=== PATIENT | male | born 1955 | race Caucasian/White ===

== ENCOUNTER → 2023-10-25 06:56 | Outpatient (REF) | payer MEDICARE, SELFPAY | LOC: MRI 06:56 | PROVIDERS: ATTENDING PHYSICIAN Physician Assistant Medical; FAMILY PHYSICIAN Internal Medicine | DX: R26.89 Other abnormalities of gait and mobility (principal); M47.12 Other spondylosis with myelopathy, cervical region | CPT/HCPCS: 72141; 72148 ==

== ENCOUNTER 2023-11-04 12:34 | Inpatient (IN) | payer MEDICARE, SELFPAY ==
[2023-11-04] VITALS (9 sets, daily range): BP systolic 91–124; BP diastolic 52–77; BMI 27.6; BMI 27.2
--- NOTE | 2023-11-04 08:57 | ED.GENMED ---
History of Present Illness
General
Chief Complaint: Abdominal Pain
Source: patient
Exam Limitations: none
Time Seen by Provider: 11/04/23 08:47
Travel History
Have you had any contact with someone who has COVID-19?: No
Do you have any symptoms of coronavirus? Fever > 100 degrees, chills, cough, shortness of breath, sore throat, loss of taste or smell, muscle aches, or headache?: No
History of Present Illness
History of Present Illness:
67-year-old male 3 weeks of upper abdominal burning and dark stool. Contacted his inserter operator who recommended ER evaluation. No new medication. Some increased sleepiness and tiredness. No chest pain or shortness of breath. Is having dark stool
on a daily basis for the last 3 weeks
Past History
Past History
ED Past Medical History: CAD, HTN and Hypercholesterolemia
ED Past Surgical History: Cardiac, Orthopedic and Other (Hernia repair)
Social History
Tobacco: Smoker
Alcohol: Occasional
Drug: None
Review of Systems
Review of Systems
All Other Systems: Not applicable
Constitutional: Denies fever
Respiratory: Denies trouble breathing
Cardiac: Denies chest pain or syncope
Phy Exam
Physical Exam
Physical Exam:
GENERAL: Alert and oriented in no apparent distress
EYE: Orbits normal.
NECK: Supple
CARDIAC: Regular rate and rhythm without any obvious murmurs. Sternotomy scar
LUNGS: Clear breath sounds,normal
ABDOMEN: Soft, bowel sounds present. Minimal epigastric tenderness. No rebound or guarding no mass or hernia. Stool mildly dark and test obviously positive
NEUROLOGICAL: Alert and oriented , grossly non-focal
SKIN: Warm and dry, no rash or lesion, no discoloration, skin intact.
MUSCULOSKELETAL: No edema,no deformity.Good color
PSYCH: Normal and appropriate interaction.
Course
Orders/Labs/Results
Orders:
Orders
11/04/23 08:55
EKG [Electrocardiogram (*1)] Urgent
Reason for Study: Fatigue / Weakness
EKG- Treatment ONCE
11/04/23 08:56
Cardiac Monitoring- Treatment ONCE
IV Insert/Care/Rem.- Treatment PRN
IV Insert/Care/Rem.- Treatment PRN
Pantoprazole [Protonix IV] 40 mg IV NOW STA
Pulse Ox/cont/shift [RESP] Stat
Quantity: 1
11/04/23 09:00
Type+Screen Urgent
Complete Blood Count/With Diff Urgent
Comprehensive Metabolic Panel Urgent
Lipase Urgent
PTT Urgent
Prothrombin Time Urgent
11/04/23 12:05
Admit/Transfer Patient As Directed
Co-Sign Provider:
Level of Care: Inpatient admission
Assign to:: Telemetry
Physician / Group: Stacie Menendez [facility]
Diagnosis: GI bleed, anemia
Reason for Telemetry: Chest Pain syndromes
Date to Stop Telemetry: 11/06/23
Time to Stop Telemetry: 11:00
Reason for Hospitalization: GI bleed, anemia
Expected length of stay greater than two midnights?: Yes
ELOS- Estimated Length of Stay in days: 4
I certify the patient meets the requirements for IP care: Yes
11/04/23 12:06
CARDIOLOGY CONSULT Routine
Consulting Provider: Dewayne Cortez
Was physician already notified: Yes
GASTROINTESTINAL CONSULT Routine
Consulting Provider: Meredith Cantu
Was physician already notified: Yes
11/04/23 12:16
CT Chest/abd/pel W Iv Cont Routine
Comment:
Reason For Exam: wt loss no oral contrast
11/04/23 14:36
Sequential Compression Device [Pneumatic Compression Sleeves] As Directed
Type: Knee high
DX Deep Vein Thrombosis Video Routine
11/06/23 11:00
DC Protocol for Telemetry ONCE
Abnormal Lab Results
11/04/23
09:00
RBC 3.57 L 10^6/uL
(4.70-6.10)
Hgb 12.7 L g/dL
(13.0-18.0)
Hct 35.9 L %
(39.0-52.0)
MCV 100.6 H fL
(80.0-94.0)
MCH 35.6 H pg
(27.0-31.0)
MPV 12.0 H fL
(7.4-10.4)
Absolute Monos (auto) 0.7 H 10^3/uL
(0.1-0.6)
Glucose 116 H mg/dl
(70-99)
AST 76 H U/L
(17-59)
Alkaline Phosphatase 142 H U/L
(38-126)
Albumin 3.1 L g/dl
(3.5-5.0)
Lipase 344 H U/L
(23-300)
11/04/23 09:00
11/04/23 09:00
Vital Signs
Initial and Last Documented VS:
Initial Vital Signs
Temp Pulse Resp BP Pulse Ox
98.1 F 62 18 120/59 99
11/04/23 08:41 11/04/23 08:41 11/04/23 08:41 11/04/23 08:41 11/04/23 08:41
Last Documented Vital Signs
Temp Pulse Resp BP Pulse Ox
98.1 F 66 23 111/62 100
11/04/23 08:41 11/04/23 14:04 11/04/23 14:04 11/04/23 14:04 11/04/23 12:30
*Critical Care Note
Total Time (30-74mins, 75-104mins- exclusive of procedures): Not Applicable
Update Note
Update Note:
Slight drop in hemoglobin. Medically stable. Admission for further care
ED Attending Note
-
Portions of this chart may have been created with voice recognition software.� Occasional wrong word or��sound alike� substitutions may have occurred due to the inherent limitations of voice recognition software.
Discharge Plan
Departure
Patient Disposition: Admit
Date of Disposition: 11/04/23
Time of Disposition: 09:48
Presentation/result/management discussed w/ accepting MD/DO: Hospitalist
Discharge Problem:
Upper GI bleed
Interventions
Interventions:
*Risk Screen - Suicide Last Done: 11/04/23 08:44
*General Assessment Last Done: 11/04/23 08:44
*Neglect/Abuse Screening Last Done: 11/04/23 08:44
*ED COVID-19 Vaccine History Last Done: 11/04/23 08:58
*Nursing Disposition Last Done: 11/04/23 14:33
PV-Xxqkwi-Xvgvjreegk Assessment Last Done: 11/04/23 08:58
Discharge Date and Time
Discharge Date/Time: 11/04/23 14:25
[2023-11-04] MEDS: PROTONIX IV 40 MG IV (09:05)
[2023-11-04 09:17] LABS: % Basophils 1.1 % (0-2); % Eosinophils 2.4 % (0-6); % Immature Granulocytes 0.4 % (0-0.5); % Lymphocytes 24.3 % (20.5-51.1); % Neutrophils 63.8 % (42.2-75.2); Absolute Basophils 0.1 10^3/uL (0-0.2); Absolute Eosinophils 0.2 10^3/uL (0-0.7); Absolute Monocytes 0.7 10^3/uL (0.1-0.6); Absolute Neutrophils 5.2 10^3/uL (1.4-6.5); Hematocrit 35.9 % (39.0-52.0); Hemoglobin 12.7 g/dL (13.0-18.0); Mean Corp Hgb Conc. 35.4 g/dL (33.0-37.0); Mean Corpuscular Hgb 35.6 pg (27.0-31.0); Mean Corpuscular Volume 100.6 fL (80.0-94.0); Nucleated Red Blood Cells % 0 % (-); Platelet Count 149 10^3/uL (130-400); Red Blood Cell Count 3.57 10^6/uL (4.70-6.10); Red Cell Dist. Width 12.7 % (11.5-14.5); White Blood Cell Count 8.1 10^3/uL (4.8-10.8)
[2023-11-04 09:29] LABS: INR 1.11; PT 14.4 Sec (11.4-14.6)
[2023-11-04 09:30] LABS: APTT 33.4 Sec (23.4-35.0)
[2023-11-04 09:32] LABS: ALT (SGPT) 30 U/L (0-50); AST (SGOT) 76 U/L (17-59); Albumin 3.1 g/dl (3.5-5.0); Alkaline Phosphatase 142 U/L (38-126); Blood Urea Nitrogen 17 mg/dl (9-20); Calcium 9.1 mg/dl (8.4-10.2); Carbon Dioxide 24 mmol/L (22-30); Chloride 103 mmol/L (98-107); Estimated Creatinine Clearance 73 ml/min; Glucose 116 mg/dl (70-99); Potassium 3.8 mmol/L (3.5-5.1); Sodium 135 mmol/L (135-145); Total Bilirubin 1.3 mg/dl (0.2-1.3); Total Protein 6.5 g/dl (6.3-8.2); eGFR > 60.00
[2023-11-04 09:57] LABS: Lipase 344 U/L (23-300)
--- NOTE | 2023-11-04 11:24 | CON.GI ---
Addendum entered and electronically signed by Roger Cristobal MD 11/04/23 15:42:
I saw and examined the patient.
The PA's note was reviewed and I agree with the note.
Comment:
The patient is a 67 year old male with h/o CAD s/p CABG at age 37 and multiple cardiac stents (last 2006) on DAPT, angina, HTN, hyperlipidemia who p/w melena. He reports having melenic stool for past few weeks. Also reports about 20 lb of
unintentional weight loss. EDOUARD from ER reportedly showed dark but non-melenic stool heme +ve.� Remote h/o EGD (30 years ago with GERD), no prior colonoscopy.
Impression / Rec:
1. Reported melena - EDOUARD showed dark but non-melenic stool, heme +ve. No prior colonoscopy, remote EGD (30 years prior). Denies NSAID use or pepto bismol. Hgb is 12.7. He does report abdominal pain. Doubt pt is having active GI hemorrhage.
Last Plavix yesterday. Given pt's reported 20 lbs of unintentional weight loss, would prefer to proceed with endo eval as inpt. Plan for diagnostic EGD/colonoscopy tomorrow (will need to hold Plavix for 5 days if any therapy is needed).
Original Note:
Consultation
-
Date/Time Consultation Requested: 11/04/23 1115
Date/Time Consultation Performed: 11/04/23 1120
Requesting Provider: Brady Torres MD
Performing Provider: ZULMA Prescott, Roger Cristobal MD
Reason for Consultation: GI bleed / abd pain
Medical History
Chief Complaint / HPI
Chief Complaint: dark stools
History of Present Illness:
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
red ? clot, upper abdominal pain up to 12/10 with eating and decreased appetite. He also related some period of chest pain with follow with Dr. Castelan and Dr. Menjivar at [facility]. He now present as also seeing dark stool and noted heme + in ER.
Pt admits to hx EGD 30 years ago with GERD and current on Protonix 20mg daily. He denies pepto use. abdominal pain is a burning pain mid abdomen. Worse with eating and better with fasting. Dark stool he noted several weeks ago and continued.
He has about 2 stools per day. He denies diarrhea but has some chronic constipation with occasional laxative use that has not been effective. + ASA use no other NSAID use. hbg on admission 12.7, glucose 116, AST 76, alk phos 142, albumin 3.1
otherwise labs stable. No prior colonoscopy.
Past Medical History
Past Medical History: CAD, HTN, Hypercholesterolemia, VT and Other (pilonidal cyst)
Past Surgical History: Cardiac (CABG, prior rent ), Orthopedic (lami, right knee replacement ) and Other (excision of pilonidal cyst, hernia repair)
Social History
Tobacco: Former Smoker (quit 2 -2 1/2 years ago)
Alcohol: Occasional (3 drinks per week)
Drug: None
Living: With Roomate
Employment: Employed (semi retired )
Family History
Family History: Other (no family hx colon CA or polyps )
Allergies / Home Medications
Allergy/AdvReac Type Severity Reaction Status Date / Time
No Known Allergies Allergy Verified 11/04/23 08:41
Medication Instructions Recorded
aspirin 81 mg tablet,delayed 81 mg PO QPM Blood Clot 11/22/20
release Prevention/Tx
metoprolol succinate 100 mg 100 mg PO QPM Blood Pressure 11/22/20
tablet,extended release 24 hr
amlodipine 5 mg tablet (Norvasc) 5 mg PO NOON Blood Pressure 11/04/23
clopidogrel 75 mg tablet 75 mg PO QPM Blood Clot 11/04/23
Prevention/Tx
isosorbide mononitrate 30 mg 30 mg PO DAILY Heart 11/04/23
tablet,extended release 24 hr Disease/Condition
lisinopril 5 mg tablet 2.5 mg PO NOON Blood Pressure 11/04/23
magnesium oxide 200 mg PO BID Electrolyte Repletion 11/04/23
pantoprazole 20 mg tablet,delayed 20 mg PO DAILY Gastrointestinal 11/04/23
release (Protonix) Issue
potassium chloride 10 mEq 30 meq PO DAILY Electrolyte 11/04/23
tablet,extended release Repletion
rosuvastatin 20 mg tablet 20 mg PO QPM High Cholesterol 11/04/23
torsemide 20 mg tablet 40 mg PO DAILY Fluid 11/04/23
Retention/Swelling
Review of Systems
-
History Source: Patient
Constitutional: Reports Weight Loss and Chills
EENT: Reports Other (feeling of fullness in back of throat and bringing up clot daily red or black material)
Respiratory: Reports Trouble Breathing (at times)
Cardiac: Reports Chest Pain (at times )
Abdomen/GI: Reports Abdominal Pain, Constipated, Black Stools and Other (decreased appetite )
: Reports No Symptoms
Musculoskeletal: Reports No Symptoms
Skin: Reports No Symptoms
Neurological: Reports Weakness
Endocrine: Reports No Symptoms
Hematologic/Lymphatic: Reports Bleeding
Vital Signs
Temp Pulse Resp BP Pulse Ox
98.1 F 65 19 124/74 99
11/04/23 08:41 11/04/23 10:45 11/04/23 10:30 11/04/23 10:00 11/04/23 10:45
Physical Exam
Exam
General: Well Developed, Well Nourished and No Apparent Distress
HEENT: Normocephalic and Anicteric
Respiratory: Clear and Wheezes
Cardiac: Regular Rhythm
GI: Soft, Non Distended and Tender (epgastric tenderness)
Musculoskeletal: No Clubbing and No Cyanosis
Skin: Warm and Dry
Neuro: Awake, Alert and AO x 3
Psych: Calm
Results
WBC 8.1 10^3/uL (4.8-10.8) 11/04/23 09:00
Hgb 12.7 g/dL (13.0-18.0) L 11/04/23 09:00
Hct 35.9 % (39.0-52.0) L 11/04/23 09:00
MCV 100.6 fL (80.0-94.0) H 11/04/23 09:00
Plt Count 149 10^3/uL (130-400) 11/04/23 09:00
Absolute Neuts (auto) 5.2 10^3/uL (1.4-6.5) 11/04/23 09:00
PT 14.4 Sec (11.4-14.6) 11/04/23 09:00
INR 1.11 11/04/23 09:00
APTT 33.4 Sec (23.4-35.0) 11/04/23 09:00
Sodium 135 mmol/L (135-145) 11/04/23 09:00
Potassium 3.8 mmol/L (3.5-5.1) 11/04/23 09:00
Chloride 103 mmol/L (98-107) 11/04/23 09:00
Carbon Dioxide 24 mmol/L (22-30) 11/04/23 09:00
BUN 17 mg/dl (9-20) 11/04/23 09:00
Creatinine 1.0 mg/dL (0.7-1.3) 11/04/23 09:00
Calcium 9.1 mg/dl (8.4-10.2) 11/04/23 09:00
Total Bilirubin 1.3 mg/dl (0.2-1.3) 11/04/23 09:00
AST 76 U/L (17-59) H 11/04/23 09:00
ALT 30 U/L (0-50) 11/04/23 09:00
Alkaline Phosphatase 142 U/L (38-126) H 11/04/23 09:00
Lipase 344 U/L (23-300) H 11/04/23 09:00
Diagnostic Image Results:
Prior GI Procedures:
EGD: last 30 years ago for GERD
Colonoscopy: none
Assessment / Plan
-
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
red ? clot, upper abdominal pain up to 08/30 with eating, decreased appetite and constipation. He also related some period of chest pain with follow with Dr. Castelan and Dr. Menjivar at [facility]. He now present as also seeing dark stool and noted heme + in
ER. hx EGD 30 years ago with GERD and current on Protonix 20mg daily. He denies pepto use. No prior colonoscopy.
-heme + stool
-wt loss 20 lbs with decreased appetite
-fullness in throat with daily noted small amount of blood/dark material
-epigastric pain
-constipation
-occasional chest pain
-CAD with prior CABG and stenting on ASA and Plavix
other medical problems:
-VT
-HTN
-hypercholesterolemia
-hx GERD
-hernia repiair
PLAN:
Etiology of heme + stool related to upper GI bleeding with epigastric pain- PUD, ectasia, mass , ENT source with noted blood from back of throat, vs lower GI source with no prior screening in past vs other
will check CT Chest/abd/pelvis today with wt loss and abdominal pain
hbg stable cont to trend
if stable possible EGD/colon in am if stable from cardiac standpoint with c/w occasional chest pain
hold Plavix if ok with cards last dose 11/03 ok to continue ASA
consider ENT eval if persistent blood from back of throat or any abnormality on Ct
NSAID avoidance
cont PPI
reviewed withDr. Cristobal, Dr. Torres and Dr. Menendez for admission
-
-
Thank you for consultation and allowing me to participate in the patient's care. Please call the control manager GI physician during the after hours with any questions or concerns.
--- NOTE | 2023-11-04 13:31 | CON.CAR ---
Addendum entered and electronically signed by Dewayne Cortez MD 11/04/23 14:59:
I saw and examined the patient.
The LEGAL ADMINISTRATIVE ASSISTANT's note was reviewed and I agree with the note.
Comment: 67 yo M with complex cardiac history described below now with heme positive stool. He denies cp or sob. He has clear lungs b/l, regular rate and rhythm. He has elevated risk for all procedures but no contraindication to proceeding. Holding
plavix and continue aspirin without interruption. Otherwise as below.
Original Note:
Consultation
Consultation Request
Date/Time Consultation Requested: 11/04/23 12p
Date/Time Consultation Performed: 11/04/23 1:15p
Requesting Provider: Dr. Menendez
Performing Provider: ZULMA Thomas for Dr. Cortez
Reason for Consultation: anemia/GIB on ASA/Plavix for CAD
Medical History
-
Chief Complaint: abdominal pain, melena
History of Present Illness:
Mr. Mejia is a 67 yo male with premature coronary artery disease status-post CABG (in 1992 at [facility] at the age of 37; known occluded SVG to diagonal), subsequent coronary stenting (2006; on chronic aspirin/Plavix), ischemic cardiomyopathy
(previous LVEF 40-45%, now normalized), hypertension, hyperlipidemia, pre-diabetes, former cigarette use (quit 05/2021), and mild obesity, who presents to the ER with c/o abdominal pain for several months. Pain is worse after eating and is better
with fasting. There is associated melena for the last 3 weeks as well. He is admitted to the hospitalist service with GI following and plans for EGD. We are consulted for pre-procedure evaluation. He is a patient of Dr. Langford and also .
Chey Menjivar at [facility]. His CAD is very stable on his medications w/o recurrent angina. He is on ASA and Plavix, with his last PCI in 2006. He denies any cardiac symptoms currently.
Testing:
Cath 10/29/22: attempted wiring of the LAD (75% mid LAD and 90% apical LAD stenosis), aborted secondary to severe tortuosity and pleating of the SIFUENTES graft.
Lexiscan stress test 01/30/23: no ischemia.
Echo 03/04/23: EF 55-60%, mild cLVH, mild MR/AR/TR, PASP 40 mmHg
Past Medical History
Past Medical History: Other (as above)
Past Surgical History: Cardiac (cabg 1992)
Social History
Tobacco: Former Smoker
Alcohol: Occasional
Personal:
Living: With Family
Employment: Employed
Family History
Family History: Early CAD (sibbling MA 38)
Allergies / Home Medications
Allergy/AdvReac Type Severity Reaction Status Date / Time
No Known Allergies Allergy Verified 11/04/23 08:41
Medication Instructions Recorded Confirmed Type
aspirin 81 mg tablet,delayed 81 mg PO QPM Blood Clot 11/22/20 11/04/23 History
release Prevention/Tx
metoprolol succinate 100 mg 100 mg PO QPM Blood Pressure 11/22/20 11/04/23 History
tablet,extended release 24 hr
amlodipine 5 mg tablet (Norvasc) 5 mg PO NOON Blood Pressure 11/04/23 11/04/23 History
clopidogrel 75 mg tablet 75 mg PO QPM Blood Clot 11/04/23 11/04/23 History
Prevention/Tx
isosorbide mononitrate 30 mg 30 mg PO DAILY Heart 11/04/23 11/04/23 History
tablet,extended release 24 hr Disease/Condition
lisinopril 5 mg tablet 2.5 mg PO NOON Blood Pressure 11/04/23 11/04/23 History
magnesium oxide 200 mg PO BID Electrolyte Repletion 11/04/23 11/04/23 History
pantoprazole 20 mg tablet,delayed 20 mg PO DAILY Gastrointestinal 11/04/23 11/04/23 History
release (Protonix) Issue
potassium chloride 10 mEq 30 meq PO DAILY Electrolyte 11/04/23 11/04/23 History
tablet,extended release Repletion
rosuvastatin 20 mg tablet 20 mg PO QPM High Cholesterol 11/04/23 11/04/23 History
torsemide 20 mg tablet 40 mg PO DAILY Fluid 11/04/23 11/04/23 History
Retention/Swelling
Review of Systems
-
History Source: Patient
All other systems: Negative unless noted
Physical Exam
Vital Signs
Temp Pulse Resp BP Pulse Ox
98.1 F 64 18 106/67 100
11/04/23 08:41 11/04/23 12:15 11/04/23 11:45 11/04/23 12:00 11/04/23 12:15
Lab Results
11/04/23 09:00
11/04/23 09:00
Physical Exam
General: Well Developed, Well Nourished and No Apparent Distress
HEENT: Normocephalic and Anicteric
Respiratory: Clear and Non Labored Respirations
Cardiac: S1/S2 and Regular Rhythm
Breast: Deferred by me
GI: Soft, Non Tender, Non Distended and Normal Bowel Sounds
Rectal: Hem Positive (per GI)
Genito-urinary: No Costovertebral Tender
Musculoskeletal: No Clubbing, No Cyanosis and No Edema
Skin: Warm and Dry
Neuro: AO x 3
Hematologic/Lymphatic: No Lymphadenopathy
Psych: Calm
Impression / Plan
-
CAD - s/p CABG 1992.
- stable w/o angina on medical therapy, continue.
- last PCI 2006, ok to hold Plavix and continue ASA.
ICM - resolved EF now normal.
- stable on diuretics.
- monitor daily weights and continue meds.
Melena/abdominal pain - new.
- heme positive stool in ER per GI.
- GI following and plan for EGD.
- OK to hold Plavix and continue ASA.
HTN - stable on Lisinopril, Toprol, Imdur; continue.
HLD - stable on Crestor, continue.
Data Reviewed
-
EKG: Tracing Personally Visualized and interpreted (SB 59 bpm, nonspecific T wave abn)
Medical Tests (Nuc Med, Echo etc): Image Personally Visualized and interpreted (Lexiscan stress test 01/30/23: no ischemia.), Report Reviewed by me (echo 03/04/23: EF 55-60%, mild cLVH, mild MR/AR/TR, PASP 40 mmHg) and Other (cath 10/29/22: attempted
wiring of the LAD (75% mid LAD and 90% apical LAD stenosis), aborted secondary to severe tortuosity and pleating of the SIFUENTES graft.)
Labs: Labs Reviewed by me
Old Records: Reviewed
--- NOTE | 2023-11-04 14:37 | HPS.HSE ---
Family Physician
-
Family Physician: Alida Hendricks
Chief Complaint
-
GIB, abdominal pain
History of Present Illness
67 y/o M hx of CAD on ASA/Plavix with prior CABG, stenting, hx of IA, chronic angina, Essential HTN, HLD presents to ER with weight loss (20 lbs), fatigue, daily feeling of fullness back of throat along with red possible clot material. Patient also
reports abdominal pain (burning mid abdomen) with eating and lower appetite. He has 2 dark stools daily for 3 weeks. Pt admits to hx EGD 30 years ago with GERD and current on Protonix 20mg daily
He also reports periodic chest pain but no SOB or other complaints. Patient is followed by local Cardiology and [facility] cardiology and takes ASA/Plavix.
In ER, patient passed dark stool, heme+.
Medical History
Past Medical History
Past Medical History: Reports Other (CAD on ASA/Plavix with prior CABG, stenting, hx of IA, chronic angina, Essential HTN, HLD)
Past Surgical History: Reports Cardiac and Orthopedic
Social History
Tobacco: Former Smoker
Alcohol: Occasional
Drug: None
Living: With Roomate
Family History
Family History: Not pertinent
Allergies / Home Medications
Allergies reflects when Allergies were last updated in [employer].
Home Medications with original date entered in [employer]
Allergy/Medication List:
Allergies
Allergy/AdvReac Type Severity Reaction Status Date / Time
No Known Allergies Allergy Verified 11/04/23 08:41
Home Medications
aspirin 81 mg tablet,delayed release 81 mg PO QPM Blood Clot Prevention/Tx 11/22/20
metoprolol succinate 100 mg tablet,extended release 24 hr 100 mg PO QPM Blood Pressure 11/22/20
amlodipine 5 mg tablet (Norvasc) 5 mg PO NOON Blood Pressure 11/04/23
clopidogrel 75 mg tablet 75 mg PO QPM Blood Clot Prevention/Tx 11/04/23
isosorbide mononitrate 30 mg tablet,extended release 24 hr 30 mg PO DAILY Heart Disease/Condition 11/04/23
lisinopril 5 mg tablet 2.5 mg PO NOON Blood Pressure 11/04/23
magnesium oxide 200 mg PO BID Electrolyte Repletion 11/04/23
pantoprazole 20 mg tablet,delayed release (Protonix) 20 mg PO DAILY Gastrointestinal Issue 11/04/23
potassium chloride 10 mEq tablet,extended release 30 meq PO DAILY Electrolyte Repletion 11/04/23
rosuvastatin 20 mg tablet 20 mg PO QPM High Cholesterol 11/04/23
torsemide 20 mg tablet 40 mg PO DAILY Fluid Retention/Swelling 11/04/23
Review of Systems
-
A 12 point ROS was completed and negative except as noted: Yes
Physical Exam
Vital Signs
Vital Signs
Temp Pulse Resp BP Pulse Ox
98.1 F 66 23 111/62 100
11/04/23 08:41 11/04/23 14:04 11/04/23 14:04 11/04/23 14:04 11/04/23 12:30
Physical Exam
General: Well Developed and Well Nourished
HEENT: NormoCephalic and Anicteric
Respiratory: Clear; No Wheezes or Rales
Cardiac: S1/S2 and Regular Rhythm
GI: Soft and Tender
Neuro: AO x 3
Psych: Calm
Laboratory Results
-
11/04/23 09:00
11/04/23 09:00
Laboratory Results
PT 14.4 Sec (11.4-14.6) 11/04/23 09:00
INR 1.11 11/04/23 09:00
APTT 33.4 Sec (23.4-35.0) 11/04/23 09:00
Total Bilirubin 1.3 mg/dl (0.2-1.3) 11/04/23 09:00
AST 76 U/L (17-59) H 11/04/23 09:00
ALT 30 U/L (0-50) 11/04/23 09:00
Alkaline Phosphatase 142 U/L (38-126) H 11/04/23 09:00
Lipase 344 U/L (23-300) H 11/04/23 09:00
Data Reviewed
-
Lab Data: Labs Reviewed by me
Impression/Plan
-
Assessment:
GI bleed, heme+ stools
Weight loss
throat fullness, small amounts of blood
epigastric/abd pain
Hx of GERD
- CT unrevealing for acute path, suggests possible cirrhosis
- GI consulted
- trend Hb
- EGD/Colon tomorrow; NPO p MN, ok for clears, no reds
- avoid NSAIDs
- continue PPI
Ischemic cardiomyopathy resolving
- on Lasix; monitor weights
CAD s/p prior CABG and stenting
Hx of IA
- hold Plavix, ok for ASA per CBC Cards
Essential HTN - �stable on Lisinopril, Toprol, Imdur; continue.
HLD - stable on Crestor, continue.
DVT ppx: SCDs
Code: Full
[2023-11-04] MEDS: ULTRAM 50 MG PO (15:55)
[2023-11-04] MEDS: TOPROL XL PO (17:25)
[2023-11-04] MEDS: ASPIR LOW (ENTERIC COATED) 81 MG PO (17:25)
[2023-11-04] MEDS: CRESTOR 20 MG PO (17:25)
--- NOTE | 2023-11-04 17:32 | PTCARENOTE ---
Ambulated to bed @ arrival of admission. No assistance needed. No complaints at this time. Oriented to room. Call morales within reach.
[2023-11-04] MEDS: NULYTELY SOLUTION 4 LITERS PO (17:34)
[2023-11-05] VITALS (12 sets, daily range): BP systolic 98–136; BP diastolic 58–77; BMI 27.2
[2023-11-05] MEDS: ULTRAM 50 MG PO ×2 (06:10→16:17)
--- NOTE | 2023-11-05 06:36 | PTCARENOTE ---
Patient with clear light yellow liquid stool. Patient accepted all of prep except for 2 large cups. Received tramdol this a.m. for c/o abdominal pain.
--- NOTE | 2023-11-05 08:43 | W.PN.HOSP.TC ---
Today's Communication/Plan
-
for EGD/Colonoscopy today
holding Plavix
Assessment / Plan
Assessment / Plan
Assessment:
GI bleed, heme+ stools
Weight loss
throat fullness, small amounts of blood
epigastric/abd pain
Hx of GERD
- CT unrevealing for acute path, suggests possible cirrhosis
- GI following
- trend Hb
- EGD/Colon today
- avoid NSAIDs
- continue PPI
Ischemic cardiomyopathy resolving
- on Lasix; monitor weights
CAD s/p prior CABG and stenting
Hx of ND
- hold Plavix, ok for ASA per CBC Cards
Essential HTN - �stable on Lisinopril, Toprol, Imdur; continue.
HLD - stable on Crestor, continue.
DVT ppx: SCDs
Code: Full
Anticipated Discharge: 24 - 48 hours
Subjective/Interval History
-
Date of Service: November 05, 2023
reports one episode of 'blood cough'
no other complaints
tolerated GI prep
Objective Data
-
Labs:
Laboratory Results
11/05/23
07:57
WBC Pending
Hgb Pending
Hct Pending
Plt Count Pending
Sodium Pending
Potassium Pending
Chloride Pending
Carbon Dioxide Pending
BUN Pending
Creatinine Pending
Glucose Pending
Calcium Pending
Vital Signs:
Vital Signs
Temp Pulse Resp BP Pulse Ox
98.4 F 66 18 99/61 96
11/05/23 07:00 11/05/23 07:00 11/05/23 07:00 11/05/23 07:00 11/05/23 07:00
I&O
11/04/23 11/05/23 11/06/23
06:59 06:59 06:59
Intake Total 1380 / 1380
Balance 1380 / 1380
Physical Exam
-
General: No Apparent Distress
HEENT: Normocephalic and Atraumatic
Respiratory: Negative Wheezes or Rales
Cardiac: Regular Rhythm and S1/S2
GI: Soft
Genito-urinary: No Costovertebral Tender
Musculoskeletal: No Edema
Neuro: AO x 3
Psych: Calm
Data Reviewed
-
Total Time Spent with Patient (in minutes): 45
Labs: Labs Reviewed by me
--- NOTE | 2023-11-05 08:44 | W.PN.CD ---
Today's Communication / Plan
-
-
holding plavix
await GI eval
Impression / Plan
-
CAD - s/p CABG 1992.
- stable w/o angina on medical therapy, continue.
- last PCI 2006, ok to hold Plavix and continue ASA.
ICM - resolved EF now normal.
- stable on diuretics.
- monitor daily weights and continue meds.
Melena/abdominal pain - new.
- heme positive stool in ER per GI.
- GI following and plan for EGD.
- OK to hold Plavix and continue ASA.
HTN - stable on Lisinopril, Toprol, Imdur; continue.
HLD - stable on Crestor, continue.
Physical Exam
Vital Signs/Labs
Vital Signs
Temp Pulse Resp BP Pulse Ox
98.4 F 66 18 99/61 96
11/05/23 07:00 11/05/23 07:00 11/05/23 07:00 11/05/23 07:00 11/05/23 07:00
11/04/23 11/05/23 11/06/23
06:59 06:59 06:59
Actual Weight 184 lb 4 oz
PT 14.4 Sec (11.4-14.6) 11/04/23 09:00
INR 1.11 11/04/23 09:00
APTT 33.4 Sec (23.4-35.0) 11/04/23 09:00
Physical Exam
Constitutional: No acute distress and Comfortable
Cardiovascular: Rhythm & rate is regular and Pedal edema is absent
Respiratory: Respiratory effort normal and Lungs clear to auscul.
Data Reviewed
-
Date of Service: November 05, 2023
EKG: Tracing Personally Visualized and interpreted
Labs: Labs Reviewed by me
[2023-11-05] MEDS: DEMADEX PO (09:00)
[2023-11-05 09:01] LABS: Hemoglobin 11.3 g/dL (13.0-18.0); Mean Corp Hgb Conc. 34.2 g/dL (33.0-37.0); Mean Corpuscular Hgb 35.1 pg (27.0-31.0); Mean Corpuscular Volume 102.5 fL (80.0-94.0); Mean Platelet Volume 12.4 fL (7.4-10.4); Platelet Count 117 10^3/uL (130-400); Red Blood Cell Count 3.22 10^6/uL (4.70-6.10); Red Cell Dist. Width 12.5 % (11.5-14.5); White Blood Cell Count 6.7 10^3/uL (4.8-10.8)
[2023-11-05] MEDS: IMDUR (EXTENDED RELEASE) 30 MG PO (09:16)
[2023-11-05] MEDS: PROTONIX 40 MG PO (09:16)
[2023-11-05 09:45] LABS: Blood Urea Nitrogen 9 mg/dl (9-20); Calcium 8.7 mg/dl (8.4-10.2); Carbon Dioxide 23 mmol/L (22-30); Chloride 109 mmol/L (98-107); Estimated Creatinine Clearance 91 ml/min; Glucose 87 mg/dl (70-99); Iron 160 ug/dl (49-181); Potassium 3.9 mmol/L (3.5-5.1); Sodium 134 mmol/L (135-145); eGFR > 60.00
[2023-11-05 09:55] LABS: Percent Saturation 50 % (20-50); Total Iron Binding Capacity 320 ug/dl (261-462)
[2023-11-05 10:49] LABS: Vitamin B12 847 pg/ml (239-931)
--- NOTE | 2023-11-05 11:38 | W.PN.UPDATE ---
Update Note
Progress Note Update
Pt has f/u office visit scheduled with me on 12/28/2023 at 11:45 am
[2023-11-05] MEDS: ZESTRIL 2.5 MG PO (13:21)
[2023-11-05] MEDS: NORVASC 5 MG PO (13:21)
--- NOTE | 2023-11-05 16:20 | PTCARENOTE ---
Received patient this am AAOx3 Pt NPO for Endoscopy and Colonoscopy today. Report given to GI am patient sent. Pt returned from GI Unit this afternoon AAox3. Assessment benign. Pt tolerated diet well. Complained of Abdominal pain intermittetently.
Medicated with Ultram with relief. Made patient comfortable. Cont to assess patient status.
--- NOTE | 2023-11-05 17:11 | W.PN.UPDATE ---
Update Note
Progress Note Update
Asked to see patient for epigastric pain post EGD/COLO. Patient states that he has had sharp and burning pain that is severe not relieved with belching, passing flatus and is associated with nausea. Patient tried a couple sips of water that does not
change his pain. Laying flat makes worse. Patient appears to be uncomfortable. His abdomen is soft, ND, + BS, tenderness is localized to the upper abdomen and sternal area. Discussed with Medicine Attending as well as Dr. Cristobal. Patient sent to CT
immediately. Discussed with CT. IM Attending ordered labs. Will follow up.
[2023-11-05 17:13] LABS: % Basophils 0.8 % (0-2); % Immature Granulocytes 0.2 % (0-0.5); % Lymphocytes 22.5 % (20.5-51.1); % Monocytes 7.4 % (1.7-9.3); % Neutrophils 67.1 % (42.2-75.2); Absolute Eosinophils 0.1 10^3/uL (0-0.7); Absolute Lymphocytes 1.2 10^3/uL (1.2-3.4); Absolute Monocytes 0.4 10^3/uL (0.1-0.6); Absolute Neutrophils 3.4 10^3/uL (1.4-6.5); Hematocrit 28.3 % (39.0-52.0); Hemoglobin 9.9 g/dL (13.0-18.0); Mean Corpuscular Hgb 35.2 pg (27.0-31.0); Mean Corpuscular Volume 100.7 fL (80.0-94.0); Mean Platelet Volume 11.7 fL (7.4-10.4); Nucleated Red Blood Cells % 0 % (-); Platelet Count 99 10^3/uL (130-400); Red Blood Cell Count 2.81 10^6/uL (4.70-6.10); Red Cell Dist. Width 12.8 % (11.5-14.5); White Blood Cell Count 5.1 10^3/uL (4.8-10.8)
[2023-11-05 17:20] LABS: Lactic Acid 2.2 mmol/L (0.7-2.0)
[2023-11-05 17:21] LABS: ALT (SGPT) 38 U/L (0-50); AST (SGOT) 144 U/L (17-59); Albumin 2.5 g/dl (3.5-5.0); Alkaline Phosphatase 118 U/L (38-126); Blood Urea Nitrogen 7 mg/dl (9-20); Calcium 7.9 mg/dl (8.4-10.2); Carbon Dioxide 23 mmol/L (22-30); Chloride 106 mmol/L (98-107); Estimated Creatinine Clearance 91 ml/min; Glucose 154 mg/dl (70-99); Lipase 259 U/L (23-300); Potassium 3.4 mmol/L (3.5-5.1); Sodium 130 mmol/L (135-145); Total Bilirubin 0.8 mg/dl (0.2-1.3); Total Protein 5.5 g/dl (6.3-8.2); eGFR > 60.00
--- NOTE | 2023-11-05 17:27 | CM ---
Alert awake oriented patient who lives with his Guerline who lives in a 2 story home with 3 step to enter and 14 steps to bed and bathroom. He is independent in driving and in all activities of daily living.He was offered VN he declined need.
[facility] hx / No SNF history
Pharmacy [facility]
PCP DR Alida Hendricks
PLAN Home Declined VN
[2023-11-05] MEDS: CRESTOR 20 MG PO (18:30)
[2023-11-05] MEDS: ASPIR LOW (ENTERIC COATED) 81 MG PO (18:30)
[2023-11-05] MEDS: TOPROL XL PO (18:32)
[2023-11-05] MEDS: NSS (PRESERVATIVE FREE) 10 ML IV (18:33)
[2023-11-05] MEDS: PROTONIX IV 40 MG IV (18:34)
[2023-11-05] MEDS: NSS with KCL 40 MEQ 1000 IV (18:38)
[2023-11-05 18:57] LABS: TSH Reflex To Free T4 2.89 uIU/ml (0.47-4.68)
[2023-11-05] MEDS: COMPAZINE 10 MG IV (20:38)
--- NOTE | 2023-11-05 21:30 | PTCARENOTE ---
Pt stating after eating dinner pain is worse 9/10 middle upper ABD with nausea. Pt stating episode of bright red stool at 1730 but did not notify RN. Pt stating at that time he felt dizzy/lightheaded. VSS BP 107/65 HR 80. House CHECK INSPECTOR notified,
order for IV compazine. Given per order- pt very drowsy- able to sleep, stating pain 5/10 at this time- states pain is tolerable.
[2023-11-06 01:40] LABS: Urine Albumin Negative (Neg - Trace); Urine Bilirubin Negative (Negative); Urine Character Clear (Clear); Urine Color Amber; Urine Glucose 3+ (Negative); Urine Ketone Negative (Negative); Urine Leukocyte Negative (Negative); Urine Nitrite Negative (Negative); Urine Occult Blood Negative (Negative); Urine Urobilinogen Negative (Neg - 1+)
[2023-11-06 01:55] LABS: Amphetamines Negative (Negative); Barbiturates Negative (Negative); Benzodiazepines Negative (Negative); Buprenorphine Negative (Negative); Cocaine Negative (Negative); Marijuana Negative (Negative); Methadone Negative (Negative); Methamphetamines Positive (Negative); Opiates Negative (Negative); Phencyclidine Negative (Negative); Tricyclic Antidepressants Negative (Negative)
[2023-11-06 02:42] LABS: Fentanyl, Urine Negative (Negative)
[2023-11-06 03:00] VITALS: BP 94/55
[2023-11-06 03:06] VITALS: BMI 28.0
--- NOTE | 2023-11-06 03:15 | PTCARENOTE ---
Pt with 100 mls urine output for shift- IVF 70 mls/hr. Bladder scanned for 308. Pt with 6 LB weight increase from yesterday, noted with SOB/ audible expiratory wheezing. BP 94/55 HR 71. House PODIATRY DOCTOR aware.
--- NOTE | 2023-11-06 04:35 | PTCARENOTE ---
Pt tested positive for methamphetamines on urine drug screen. House TERMINAL SUPERINTENDENT aware.
[2023-11-06] MEDS: ULTRAM 50 MG PO ×2 (05:37→17:03)
[2023-11-06 06:54] LABS: Hematocrit 26.4 % (39.0-52.0); Hemoglobin 9.4 g/dL (13.0-18.0); Mean Corp Hgb Conc. 35.6 g/dL (33.0-37.0); Mean Corpuscular Volume 101.1 fL (80.0-94.0); Mean Platelet Volume 11.7 fL (7.4-10.4); Platelet Count 92 10^3/uL (130-400); Red Blood Cell Count 2.61 10^6/uL (4.70-6.10); Red Cell Dist. Width 12.7 % (11.5-14.5); White Blood Cell Count 5.1 10^3/uL (4.8-10.8)
[2023-11-06 07:17] LABS: Blood Urea Nitrogen 7 mg/dl (9-20); Calcium 7.8 mg/dl (8.4-10.2); Carbon Dioxide 21 mmol/L (22-30); Chloride 109 mmol/L (98-107); Estimated Creatinine Clearance 104 ml/min; Glucose 97 mg/dl (70-99); Sodium 131 mmol/L (135-145); eGFR > 60.00
[2023-11-06 07:55] VITALS: BP 100/56
--- NOTE | 2023-11-06 07:56 | PN.CDI ---
CDI
- -
CDI:
Physician Documentation Request
Admit Date: 11/04/23 12:34
Dear Doctor Gemma,
Please review the following and provide your response in the progress notes.
Clinical Indicators:
Laboratory Tests
11/04/23 11/05/23 11/05/23
09:00 07:57 16:51
Sodium 135 134 L 130 L
11/06/23
06:38
Sodium 131 L
Based on the above, please clarify in the progress notes, the appropriate diagnosis, if significant, that supports the above abnormalities and additional evaluation, monitoring and/or treatment rendered:
Hyponatremia
Abnormal lab value, clinically insignificant
Other
Use of terms such as suspected, likely, concern for, or probable (associated with a specific diagnosis that is being evaluated, monitored, or treated as if it exists) are acceptable and can be coded in the inpatient setting, when documented at the
time of discharge.
Thank you,
Aparna Agarwal RN BSN CCDS
CDI Specialist
please contact via tiger text
Please use your independent medical judgment in providing your response.
--- NOTE | 2023-11-06 07:59 | PN.CDI ---
CDI
- -
CDI:
Physician Documentation Request
Admit Date: 11/04/23 12:34
Dear Doctor Gemma,
Please review the following and provide your response in the progress notes.
Clinical Indicators:
PN, 11/05
#GI bleed, heme+ stools
#CAD s/p prior CABG and stenting
#Hx of HI
#- hold Plavix, ok for ASA per CBC Cards
Please clarify the relationship, if any, between these conditions:
Yes, Melena is contributed to/enhanced by/ related to/associated with/due to Plavix.
No, Melena is not contributed to/enhanced by/related to/associated with/due to Plavix but it is due to ___. (Please specify)
Unable to determine
Use of terms such as suspected, likely, concern for, or probable (associated with a specific diagnosis that is being evaluated, monitored, or treated as if it exists) are acceptable and can be coded in the inpatient setting, when documented at the
time of discharge.
Thank you,
Aparna Agarwal RN BSN CCDS
CDI Specialist
please contact via tiger text
Please use your independent medical judgment in providing your response.
--- NOTE | 2023-11-06 08:10 | W.PN.UPDATE ---
Update Note
Progress Note Update
Seen and examined with LAURY Dumont. Full consultation to follow. Briefly 67-year-old male with significant vascular risk factors (history of CABG, history of tobacco use) with 3 to 4 months of preprandial and postprandial abdominal pain. He notes
just before he eats he gets epigastric type pain. And then as soon as he takes 3-4 bites he starts getting significant worsened abdominal pain. Mostly epigastric. As result he is developed a food fear. Weight loss also. Denies any feeling of
food getting stuck. No nausea. Admitted with these complaints. Underwent endoscopy upper and lower yesterday.
On review of systems he does note some pain with exertion/walking he has attributed to his back (pain in the legs bilaterally).
On exam/ He is awake and alert. Breathing is unlabored. 2+ bilateral upper extremity radial pulses palpable. Left side 2+ brachial pulse palpable. Abdomen is soft. Mild epigastric discomfort/tenderness. No peritoneal signs. Lower extremity
with 2+ femoral pulses. Nonpalpable distally.
Plan/
1. Chronic mesenteric ischemia. Symptoms slightly atypical, but likely suggestive of chronic mesenteric ischemia. CT scan demonstrates significant shelf of plaque at the origin of the SMA. In addition extensive plaque through the first few
centimeters of the SMA until the distal aspect/terminal branching of it. Celiac artery likely also with significant stenosis at the origin. LOLA is widely patent. Based on these findings and his symptoms, I recommend to him attempt at
angiography/angioplasty/stenting. Discussed with him extensively procedure. Discussed possible left brachial versus groin access. Discussed risks including but not limited to bleeding, arterial injury at the access sites, arterial injury at the
target site, bowel ischemia, need for staged surgical intervention, failure to relieve his pain. He understands all these and wishes to proceed. Will plan mesenteric arteriography today or on Thursday pending availability in the schedule. I
discussed with him that I am not in the OR today, and I am unfortunately out of town next week. But my partner Dr. Koch will gladly take care of him. I have discussed case with Dr. Koch as well. Patient is amenable.
2. PAD. Recommend baseline surveillance ultrasound imaging.
--- NOTE | 2023-11-06 08:15 | PN.CDI ---
CDI
- -
CDI:
Physician Documentation Request
Admit Date: 11/04/23 12:34
Dear Doctor Gemma,
Please review the following and provide your response in the progress notes.
Clinical Indicators:
11/05 EGD
#D50.9, Iron deficiency anemia, unspecified
Laboratory Tests
11/04/23 11/05/23 11/05/23
09:00 07:57 07:57
Hgb 12.7 L 11.3 L
Hct 35.9 L 33.0 L
11/05/23 11/06/23
16:51 06:38
Hgb 9.9 L 9.4 L
Hct 28.3 L 26.4 L
Based on the above and your clinical assessment, please clarify, in the progress note, which of the following is the most likely condition/diagnosis evaluated, monitored and/or treated?
Acute blood loss anemia
Acute blood loss anemia with baseline chronic anemia (Specify type)
Anemia of chronic disease - indicate if neoplastic disease, CKD or other
Chronic iron deficiency anemia due to blood loss
Precipitous drop in hematocrit
Other
Use of terms such as suspected, likely, concern for, or probable (associated with a specific diagnosis that is being evaluated, monitored, or treated as if it exists) are acceptable and can be coded in the inpatient setting, when documented at the
time of discharge.
Thank you,
Aparna Agarwal RN BSN CCDS
CDI Specialist
please contact via tiger text
Please use your independent medical judgment in providing your response.
--- NOTE | 2023-11-06 08:31 | W.PN.CD ---
Today's Communication / Plan
-
-
cont Asa
will Not restart plavix for CAD - not strongly indicated, as noted
(defer to VascSurg whether they desire Rx plavix for possible mesenteric stent)
-
please call back if needed
Impression / Plan
-
CAD - s/p CABG 1992.
- stable w/o angina on medical therapy, continue.
- last PCI 2006, ok to hold Plavix and continue ASA.
ICM - resolved EF now normal.
- stable on diuretics.
- monitor daily weights and continue meds.
Melena/abdominal pain - new.
- heme positive stool in ER per GI.
- GI following and EGD and Cscope have been completed - revealing hemorrhoids and sessile polyps
- GI says OK to restart plavix but there is no Strong indication to restart at this time (hx of PCI in 2006, and CABG in 1992)
Suspected Mesenteric Ischemia
see VascSurg note 11/06 - suspected mesenteric ischemia and plan for angiogram and possible stenting
ok to proceed from CAD POV - cont w Asa and current cardiac meds
HTN - stable on Lisinopril, Toprol, Imdur; continue.
HLD - stable on Crestor, continue.
Physical Exam
Vital Signs/Labs
Vital Signs
Temp Pulse Resp BP Pulse Ox
97.8 F 67 16 100/56 96
11/06/23 07:55 11/06/23 07:55 11/06/23 07:55 11/06/23 07:55 11/06/23 07:55
11/05/23 11/06/23 11/07/23
06:59 06:59 06:59
Actual Weight 184 lb 4 oz 189 lb 11.2 oz
11/06/23 06:38
PT 14.4 Sec (11.4-14.6) 11/04/23 09:00
INR 1.11 11/04/23 09:00
APTT 33.4 Sec (23.4-35.0) 11/04/23 09:00
LAB Results
11/05/23
16:51
Troponin I 0.020
Data Reviewed
-
Date of Service: November 06, 2023
--- NOTE | 2023-11-06 08:41 | CON.VAS ---
Consultation
Consultation Request
Performing Provider: Marcello
Reason for Consultation: SMA stenosis
Medical History
-
Chief Complaint: Abdominal pain
History of Present Illness:
67-year-old male with significant vascular risk factors (history of CABG, history of tobacco use) with 3 to 4 months of preprandial and postprandial abdominal pain.� He notes just before he eats he gets epigastric type pain.� And then as soon as he
takes 3-4 bites he starts getting significant worsened abdominal pain.� Mostly epigastric.� As result he is developed a food fear.� Weight loss also.� Denies any feeling of food getting stuck.� No nausea.� Admitted with these complaints.� Underwent
endoscopy upper and lower yesterday.
On review of systems he does note some pain with exertion/walking he has attributed to his back (pain in the legs bilaterally).
On exam/ He is awake and alert.� Breathing is unlabored.� 2+ bilateral upper extremity radial pulses palpable.� Left side 2+ brachial pulse palpable.� Abdomen is soft.� Mild epigastric discomfort/tenderness.� No peritoneal signs.� Lower extremity
with 2+ femoral pulses.� Nonpalpable distally.
Past Medical History
Past Medical History: CAD, CHF, HTN and Hypercholesterolemia
Past Surgical History: Cardiac (CABG, stents), Orthopedic and Other (hernia repair)
Social History
Tobacco: Former Smoker (1ppd, quit 2.5 years ago)
Alcohol: Occasional
Living: With Roomate
Family History
Family History: Reviewed & Not Pertinent
Allergies / Home Medications
Allergy/AdvReac Type Severity Reaction Status Date / Time
No Known Allergies Allergy Verified 11/04/23 08:41
Medication Instructions Recorded Confirmed Type
aspirin 81 mg tablet,delayed 81 mg PO QPM Blood Clot 11/22/20 11/04/23 History
release Prevention/Tx
metoprolol succinate 100 mg 100 mg PO QPM Blood Pressure 11/22/20 11/04/23 History
tablet,extended release 24 hr
amlodipine 5 mg tablet (Norvasc) 5 mg PO NOON Blood Pressure 11/04/23 11/04/23 History
clopidogrel 75 mg tablet 75 mg PO QPM Blood Clot 11/04/23 11/04/23 History
Prevention/Tx
isosorbide mononitrate 30 mg 30 mg PO DAILY Heart 11/04/23 11/04/23 History
tablet,extended release 24 hr Disease/Condition
lisinopril 5 mg tablet 2.5 mg PO NOON Blood Pressure 11/04/23 11/04/23 History
magnesium oxide 200 mg PO BID Electrolyte Repletion 11/04/23 11/04/23 History
pantoprazole 20 mg tablet,delayed 20 mg PO DAILY Gastrointestinal 11/04/23 11/04/23 History
release (Protonix) Issue
potassium chloride 10 mEq 30 meq PO DAILY Electrolyte 11/04/23 11/04/23 History
tablet,extended release Repletion
rosuvastatin 20 mg tablet 20 mg PO QPM High Cholesterol 11/04/23 11/04/23 History
torsemide 20 mg tablet 40 mg PO DAILY Fluid 11/04/23 11/04/23 History
Retention/Swelling
Review of Systems
-
History Source: Patient
All other systems: Negative unless noted
Constitutional: Reports Weight Loss
EENT: Reports No Symptoms
Respiratory: Reports No Symptoms
Cardiac: Reports No Symptoms
Vascular: Denies Leg Pain / Claudication
Abdomen/GI: Reports Abdominal Pain, Nausea, Vomiting, Bloody Stools and Black Stools
: Reports No Symptoms
Musculoskeletal: Reports No Symptoms
Skin: Reports No Symptoms
Neurological: Reports No Symptoms
Endocrine: Reports No Symptoms
Physical Exam
Vital Signs
Temp Pulse Resp BP Pulse Ox
97.8 F 67 16 100/56 96
11/06/23 07:55 11/06/23 07:55 11/06/23 07:55 11/06/23 07:55 11/06/23 07:55
Lab Results
11/06/23 06:38
Troponin I 0.020 ng/ml 11/05/23 16:51
Physical Exam
General: No Apparent Distress
HEENT: Normocephalic and Atraumatic
Respiratory: Non Labored Respirations
Cardiac: Other (+2 radial and brachial pulses bilaterally); Negative JVD
GI: Soft and Tender (mild )
Musculoskeletal: No Clubbing, No Cyanosis and No Edema
Skin: Warm
Neuro: Awake, Alert and Oriented
Psych: Calm
Pulses: Bilateral Femoral: +2 and Bilateral Posterior Tibial: Doppler (difficult to palpate)
Assessment / Plan
-
Plan/
1.� Chronic mesenteric ischemia.� Symptoms slightly atypical, but likely suggestive of chronic mesenteric ischemia.� CT scan demonstrates significant shelf of plaque at the origin of the SMA.� In addition extensive plaque through the first few
centimeters of the SMA until the distal aspect/terminal branching of it.� Celiac artery likely also with significant stenosis at the origin.� LOLA is widely patent.� Based on these findings and his symptoms, I recommend to him attempt at
angiography/angioplasty/stenting.� Discussed with him extensively procedure.� Discussed possible left brachial versus groin access.� Discussed risks including but not limited to bleeding, arterial injury at the access sites, arterial injury at the
target site, bowel ischemia, need for staged surgical intervention, failure to relieve his pain.� He understands all these and wishes to proceed.� Will plan mesenteric arteriography today or on Thursday pending availability in the schedule.� I
discussed with him that I am not in the OR today, and I am unfortunately out of town next week.� But my partner Dr. Koch will gladly take care of him.� I have discussed case with Dr. Koch as well.� Patient is amenable.
2.� PAD.� Recommend baseline surveillance ultrasound imaging.
Data Reviewed
-
CT Scan: Discussed with Patient
Labs: Labs Reviewed by me
[2023-11-06] MEDS: NSS (PRESERVATIVE FREE) 10 ML IV ×2 (08:44→16:57)
[2023-11-06] MEDS: PROTONIX IV 40 MG IV ×2 (08:44→16:57)
[2023-11-06] MEDS: DEMADEX PO (08:47)
[2023-11-06] MEDS: NSS with KCL 40 MEQ 1000 IV (08:48)
[2023-11-06] MEDS: IMDUR (EXTENDED RELEASE) PO (08:48)
[2023-11-06 08:53] LABS: ALT (SGPT) 34 U/L (0-50); AST (SGOT) 111 U/L (17-59); Albumin 2.2 g/dl (3.5-5.0); Alkaline Phosphatase 105 U/L (38-126); Total Bilirubin 1.2 mg/dl (0.2-1.3); Total Protein 5.1 g/dl (6.3-8.2)
--- NOTE | 2023-11-06 11:27 | W.PN.HOSP.TC ---
Today's Communication/Plan
-
possible OR today vs Thursday for A-gram and stenting if indicated
Assessment / Plan
Assessment / Plan
Assessment:
Acute blood loss anemia, enhanced by Plavix
GI bleed, heme+ stools
Hx of GERD
- s/p EGD: single duodenal polyp, bx pending
- s/p Colonoscopy: hemorrhoids, multiple polyps in sigmoid colon, internal hemorrhoids.
- continue PPI BID
Chronic mesenteric ischemia
chronic weight loss
- likely chronic mesenteric angina thus developed food fear and weight loss
- CT: Calcified plaque and stenosis near the origin of the SMA and celiac axis, LOLA patent
- Vascular following; angiogram with possible stenting today or Thursday pending OR availability
Hyponatremia
- Na 131
- IVF while NPO
+Meth on UDS
Ischemic cardiomyopathy resolving
- on Lasix; monitor weights
CAD s/p prior CABG and stenting
Hx of [place]
- no indication for Plavix per Cardiology perspective
- consinue ASA per CBC Cards
Essential HTN - �stable on Lisinopril, Toprol, Imdur; continue.
HLD - stable on Crestor, continue.
DVT ppx: SCDs
Code: Full
Anticipated Discharge: > 48 hours
Subjective/Interval History
-
Date of Service: November 06, 2023
thirsty, while NPO pending possible vascular procedure
Objective Data
-
Labs:
Laboratory Results
11/06/23 11/06/23
06:38 12:00
WBC 5.1
Hgb 9.4 L Pending
Hct 26.4 L Pending
Plt Count 92 L
Sodium 131 L
Potassium 4.0
Chloride 109 H
Carbon Dioxide 21 L
BUN 7 L
Creatinine 0.7
Glucose 97
Calcium 7.8 L
Total Bilirubin 1.2
AST 111 H
ALT 34
Alkaline Phosphatase 105
Vital Signs:
Vital Signs
Temp Pulse Resp BP Pulse Ox
97.8 F 67 16 100/56 96
11/06/23 07:55 11/06/23 08:47 11/06/23 07:55 11/06/23 08:47 11/06/23 09:00
I&O
11/05/23 11/06/23 11/07/23
06:59 06:59 06:59
Intake Total 1380 / 1380 2470 / 2470
Output Total 450 / 450
Balance 1380 / 1380 2019
Physical Exam
-
General: No Apparent Distress
HEENT: Normocephalic and Atraumatic
Respiratory: Negative Wheezes
Cardiac: Regular Rhythm
GI: Soft
Genito-urinary: No Costovertebral Tender
Musculoskeletal: No Edema
Neuro: AO x 3
Hematologic / Lymphatic: No Lymphadenopathy
Psych: Calm
Data Reviewed
-
Total Time Spent with Patient (in minutes): 44
Labs: Labs Reviewed by me
[2023-11-06 11:42] VITALS: BP 116/60
[2023-11-06] MEDS: ZESTRIL PO (12:00)
[2023-11-06] MEDS: NORVASC PO (12:00)
--- NOTE | 2023-11-06 12:25 | W.PN.GI.CBS2 ---
Addendum entered and electronically signed by Maury Marie MD 11/06/23 17:32:
Dr. Cristobal set up appt 12/27 11:45 am
I gave patient card with info
Addendum entered and electronically signed by Maury Marie MD 11/06/23 17:11:
I saw and examined the patient.
The KNITTER MACHINE or PA's note was reviewed and I agree with the note.
Comment: 67 yo M pmh CAD, CABG, [place] a/w weight loss, abd pain, dark stool heme + underwent egd/cscope with Dr. Cristobal yesterday with multiple polyps on cscope, polyp in duodenum removed, remainder upper endo normal. Had pain post procedure underwent
stat CT unremarkable. Today we were called 2 bloody BM. Vascular has seen patient and thought is this may be chronic mesenteric ischemia and they plan on doing an arteriogram on Thursday. UDS also positive as below. There is also a question of
cirrhosis - CT 11/04 with nodular liver not seen on US 11/06. Platelets are 92 but on admission were 149; coags are normal.
Recommendations:
- Monitor hb
- Ordered hepatitis serologies- will need full liver work up outpatient and fibroscan
- If ongoing bleeding recommend CTA Cr normal
- Vascular following, appreciate their input
- Hold plavix for now
- Can decrease PPI to daily with negative upper
Original Note:
Today's Communication / Plan
-
Trend H/H. Ensure adequate perfusion. Monitor stools. NPO.
Assessment / Plan
-
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
red ? clot, upper abdominal pain up to 12/10 with eating, decreased appetite and constipation. He also related some period of chest pain with follow with Dr. Castelan and Dr. Menjivar at [place]. He now present as also seeing dark stool and noted heme + in
ER. hx EGD 30 years ago with GERD and current on Protonix 20mg daily. He denies pepto use. No prior colonoscopy. Drug screen +methamphetamine. CTA imaging as below with vascular consult/?OR today.
11/06/23 US abdomen: Impression: 1) Patent hepatic vasculature with appropriate directional flow, as described above.
2. Cholelithiasis without sonographic evidence for acute cholecystitis.
3. Increased echogenicity in the liver, compatible with underlying hepatocellular disease, which most commonly relates to fatty infiltration of the liver
11/05/23 CT w/o contrast:IMPRESSION: 'No evidence of free air in the abdomen. Evaluation otherwise limited as a result of multiple factors including beam hardening artifact from the patient's bilateral upper extremities, lack of oral contrast and
lack of intravenous contrast. Contracted gallbladder with stones. Moderate perinephric stranding bilaterally and some overall mild scattered mesenteric stranding.'
11/04/23 CTA: IMPRESSION:
1. Nodular contour of the liver, suggestive of cirrhosis in the correct clinical setting.
2. Small amount of pelvic free fluid of unknown etiology.
3. Calcified plaque and stenosis near the origin of the SMA and celiac axis. Please correlate for symptoms of chronic mesenteric ischemia. LOLA is widely patent.
4. Cholelithiasis without evidence of acute cholecystitis.
5. Severe coronary arterial calcification. Please correlate with symptoms of and risk factors for coronary artery disease, with further workup as clinically appropriate.
Problem list:
-heme + stool
-Rectal bleeding
-?fatty liver v cirrhosis
-thrombocytopenia
-wt loss 20 lbs with decreased appetite
-CT showing significant stenosis/plaque near SMA, celiac axis, severe coronary arterial calcifications
-fullness in throat with daily noted small amount of blood/dark material
-epigastric pain
-constipation
-occasional chest pain
-CAD with prior CABG and stenting on ASA and Plavix
Other medical problems:
-[place]
-HTN
-hypercholesterolemia
-hx GERD
-hernia repair
Recommendations:
-Etiology of heme + stool/rectal bleeding possibly related to UGIB v ischemic colitis (elevated lactic acid, hypotension) v hemorrhoids v other.
---Significant vascular disease on imaging with elevated lactic acid. EGD and colon unrevealing for overt source of bleeding although poor colon prep on 11/05.
-Abdominal pain possible 10/23 ?chronic mesenteric ischemia with findings as above
-Trend H/H, repeat pending for 12:00
-Monitor plts, ?cirrhosis but not evident on US with doppler with patent flow
-Monitor for recurrent bleeding/stool output. Consider CTA if recurrent gross bleeding.
-Pending possible angiography/angioplasty/stenting with vascular today v Thursday
-Continue to hold Plavix
-Continue PPI BID
-NPO
-Needs outpatient work-up for possible cirrhosis (suggestive with thrombocytopenia, anemia, low albumin)
-Will follow
Subjective
Subjective
Date of Service: November 06, 2023
The pt was seen and examined at the bedside. He reports some moderate abdominal pain still. Denies further rectal bleeding or BM. Hgb stable this am with repeat pending.
Objective
Data Reviewed
Laboratory Data:
Laboratory Results
11/06/23 06:38
Laboratory Results
PT 14.4 Sec (11.4-14.6) 11/04/23 09:00
INR 1.11 11/04/23 09:00
APTT 33.4 Sec (23.4-35.0) 11/04/23 09:00
Total Bilirubin 1.2 mg/dl (0.2-1.3) 11/06/23 06:38
AST 111 U/L (17-59) H 11/06/23 06:38
ALT 34 U/L (0-50) 11/06/23 06:38
Alkaline Phosphatase 105 U/L (38-126) 11/06/23 06:38
Lipase 259 U/L (23-300) 11/05/23 16:51
Vital Signs and I&O:
Vital Signs
Temp Pulse Resp BP Pulse Ox
98.2 F 70 18 116/60 99
11/06/23 11:42 11/06/23 11:42 11/06/23 11:42 11/06/23 11:42 11/06/23 11:42
I&O
11/05/23 11/06/23 11/07/23
06:59 06:59 06:59
Intake Total 1380 / 1380 2470 / 2470
Output Total 450 / 450
Balance 1380 / 1380 2019
Physical Exam
Physical Exam
HEENT: Anicteric
Cardiology: S1 and S2 (regular rate/rhythm)
Pulmonary: Clear
GI: Distended, Tender (mid-abdomen) and Normal Bowel Sounds
[2023-11-06 15:55] VITALS: BP 118/56
--- NOTE | 2023-11-06 17:06 | CM ---
Pt will be here the .
He needs Vascular procedure Thursday.
Spoke with patient he said he has a ride home at mo.
Offered VN he declined need.
PLAN Home no anticipated needs
[2023-11-06] MEDS: ASPIR LOW (ENTERIC COATED) 81 MG PO (18:39)
[2023-11-06] MEDS: CRESTOR 20 MG PO (18:39)
[2023-11-06] MEDS: TOPROL XL PO (18:39)
[2023-11-06 19:30] VITALS: BP 116/63
[2023-11-06] MEDS: MORPHINE SULFATE 2 MG IV (20:30)
[2023-11-06 23:55] VITALS: BP 99/61
[2023-11-07] VITALS (7 sets, daily range): BP systolic 92–115; BP diastolic 52–78; BMI 28.0
[2023-11-07] MEDS: NSS 1000 IV ×2 (01:10→15:49)
[2023-11-07] MEDS: NSS with KCL 40 MEQ IV (01:10)
[2023-11-07 08:37] LABS: Hematocrit 30.1 % (39.0-52.0); Hemoglobin 10.4 g/dL (13.0-18.0); Mean Corp Hgb Conc. 34.6 g/dL (33.0-37.0); Mean Corpuscular Hgb 35.6 pg (27.0-31.0); Mean Corpuscular Volume 103.1 fL (80.0-94.0); Mean Platelet Volume 11.6 fL (7.4-10.4); Platelet Count 104 10^3/uL (130-400); Red Blood Cell Count 2.92 10^6/uL (4.70-6.10); Red Cell Dist. Width 12.5 % (11.5-14.5); White Blood Cell Count 6.4 10^3/uL (4.8-10.8)
--- NOTE | 2023-11-07 08:56 | W.PN.HOSP.TC ---
Today's Communication/Plan
-
A-gram Thursday
Assessment / Plan
Assessment / Plan
Assessment:
Acute blood loss anemia, enhanced by Plavix
GI bleed, heme+ stools
Hx of GERD
- s/p EGD: single duodenal polyp, bx pending
- s/p Colonoscopy: hemorrhoids, multiple polyps in sigmoid colon, internal hemorrhoids.
- continue PPI as daily
Chronic mesenteric ischemia
chronic weight loss
- likely chronic mesenteric angina thus developed food fear and weight loss
- CT: Calcified plaque and stenosis near the origin of the SMA and celiac axis, LOLA patent
- Vascular following; angiogram with possible stenting Thursday
Thrombocytopenia, suspect consumptive from GI bleed
- follow platelet antibodies study
- did not receive any heparin products
Hyponatremia
- Na 131
- monitor
+Meth on UDS
Ischemic cardiomyopathy resolving
- on Lasix; monitor weights
CAD s/p prior CABG and stenting
Hx of [place]
- no indication for Plavix per Cardiology perspective
- continue ASA per CBC Cards
Essential HTN - �stable on Lisinopril, Toprol, Imdur; continue with parameters
HLD - stable on Crestor, continue.
Possible cirrhosis on imaging
- OP workup including Fibroscan
DVT ppx: SCDs
Code: Full
Anticipated Discharge: > 48 hours
Subjective/Interval History
-
Date of Service: November 07, 2023
patient reports pain with meals, encourage him to either eat smaller meals or take pain meds prior to meals. he agrees
Objective Data
-
Labs:
Laboratory Results
11/07/23
08:15
WBC 6.4
Hgb 10.4 L
Hct 30.1 L
Plt Count 104 L
Sodium Pending
Potassium Pending
Chloride Pending
Carbon Dioxide Pending
BUN Pending
Creatinine Pending
Glucose Pending
Calcium Pending
Total Bilirubin Pending
AST Pending
ALT Pending
Alkaline Phosphatase Pending
Vital Signs:
Vital Signs
Temp Pulse Resp BP Pulse Ox
98.7 F 76 16 111/71 98
11/07/23 07:38 11/07/23 07:38 11/07/23 07:38 11/07/23 07:38 11/07/23 07:38
I&O
11/06/23 11/07/23 11/08/23
06:59 06:59 06:59
Intake Total 2470 / 2470 3220 / 3220
Output Total 450 / 450 250 / 250 300 / 300
Balance 2019 / 2019 2970 / 2970 -300 / -300
Physical Exam
-
General: No Apparent Distress
HEENT: Normocephalic and Atraumatic
Respiratory: Negative Wheezes or Rales
Cardiac: Regular Rhythm and S1/S2
GI: Soft
Genito-urinary: No Costovertebral Tender
Musculoskeletal: No Edema
Neuro: AO x 3
Psych: Calm
Data Reviewed
-
Total Time Spent with Patient (in minutes): 45
Labs: Labs Reviewed by me
[2023-11-07] MEDS: DEMADEX 40 MG PO (08:59)
[2023-11-07] MEDS: ULTRAM 50 MG PO ×2 (08:59→15:50)
[2023-11-07] MEDS: IMDUR (EXTENDED RELEASE) 30 MG PO (09:00)
[2023-11-07] MEDS: PROTONIX 40 MG PO (09:00)
[2023-11-07 09:27] LABS: ALT (SGPT) 43 U/L (0-50); AST (SGOT) 125 U/L (17-59); Albumin 2.6 g/dl (3.5-5.0); Alkaline Phosphatase 139 U/L (38-126); Blood Urea Nitrogen 5 mg/dl (9-20); Calcium 7.9 mg/dl (8.4-10.2); Carbon Dioxide 19 mmol/L (22-30); Chloride 109 mmol/L (98-107); Estimated Creatinine Clearance 104 ml/min; Glucose 95 mg/dl (70-99); Potassium 3.9 mmol/L (3.5-5.1); Sodium 132 mmol/L (135-145); Total Bilirubin 1.3 mg/dl (0.2-1.3); Total Protein 5.8 g/dl (6.3-8.2); eGFR > 60.00
--- NOTE | 2023-11-07 11:39 | W.PN.GI.CBS2 ---
Today's Communication / Plan
-
agram with vasc mon, gi signing off
Assessment / Plan
-
67 yo M pmh CAD, CABG, [place] a/w weight loss, abd pain, dark stool heme + underwent egd/cscope with Dr. Cristobal yesterday with multiple polyps on cscope, polyp in duodenum removed, remainder upper endo normal. Had pain post procedure underwent stat CT
unremarkable. Today we were called 2 bloody BM. Vascular has seen patient and thought is this may be chronic mesenteric ischemia and they plan on doing an arteriogram on Thursday.� UDS also positive as below.� There is also a question of cirrhosis -
CT 11/04 with nodular liver not seen on US 11/06.� Platelets are 92 but on admission were 149; coags are normal.
Recommendations:
- Monitor hb
- Ordered hepatitis serologies- will need full liver work up outpatient and fibroscan
- If ongoing bleeding recommend CTA Cr normal
- Vascular following, appreciate their input
- OK to resume plavix GI POV
- Can decrease PPI to daily with negative upper
Dr. Cristobal set up appt 12/27 11:45 am
GI will sign off pls call with questions
Subjective
Subjective
Date of Service: November 07, 2023
ongoing pain
last bm yesterday brown with blood tinged
Objective
Data Reviewed
Laboratory Data:
Laboratory Results
11/07/23 08:15
11/07/23 08:15
Laboratory Results
PT 14.4 Sec (11.4-14.6) 11/04/23 09:00
INR 1.11 11/04/23 09:00
APTT 33.4 Sec (23.4-35.0) 11/04/23 09:00
Total Bilirubin 1.3 mg/dl (0.2-1.3) 11/07/23 08:15
AST 125 U/L (17-59) H 11/07/23 08:15
ALT 43 U/L (0-50) 11/07/23 08:15
Alkaline Phosphatase 139 U/L (38-126) H 11/07/23 08:15
Lipase 259 U/L (23-300) 11/05/23 16:51
Vital Signs and I&O:
Vital Signs
Temp Pulse Resp BP Pulse Ox
98 F 93 18 115/70 98
11/07/23 11:00 11/07/23 11:00 11/07/23 11:00 11/07/23 11:00 11/07/23 11:00
I&O
11/06/23 11/07/23 11/08/23
06:59 06:59 06:59
Intake Total 2470 / 2470 3220 / 3220
Output Total 450 / 450 250 / 250 300 / 300
Balance 2019 2970 / 2970 -300 / -300
Physical Exam
Physical Exam
GI: Non Distended and Non Tender
[2023-11-07] MEDS: ZESTRIL 2.5 MG PO (12:46)
[2023-11-07] MEDS: NORVASC 5 MG PO (12:47)
[2023-11-07] MEDS: MORPHINE SULFATE 2 MG IV ×3 (12:47→21:50)
[2023-11-07] MEDS: CRESTOR 20 MG PO (17:31)
[2023-11-07] MEDS: TOPROL XL 100 MG PO (17:31)
[2023-11-07] MEDS: ASPIR LOW (ENTERIC COATED) 81 MG PO (17:31)
[2023-11-08] VITALS (9 sets, daily range): BP systolic 88–117; BP diastolic 48–78; BMI 25.8
[2023-11-08] MEDS: NSS 500 IV (00:26)
--- NOTE | 2023-11-08 00:30 | PTCARENOTE ---
Addendum entered by Rubina Obrien 11/08/23 06:13:
0506 Pt given PO midodrine per order.
Addendum entered by Rubina Obrien 11/08/23 04:08:
Pts BP 88/48- pt stating mild lightheadedness, [place] [employer] HE[employer] aware.
Original Note:
Pts BP 82/52 manual pt stating some dizziness. Repeat BP 92/52. [place] SHE[employer] HE[employer] aware. Order for NSS Bolus 500 ml/hr.
[2023-11-08] MEDS: NSS 1000 IV ×3 (05:06→19:44)
[2023-11-08] MEDS: ProAmatine 5 MG PO (05:06)
[2023-11-08 06:20] LABS: Hematocrit 26.7 % (39.0-52.0); Hemoglobin 9.3 g/dL (13.0-18.0); Mean Corp Hgb Conc. 34.8 g/dL (33.0-37.0); Mean Corpuscular Hgb 35.9 pg (27.0-31.0); Mean Corpuscular Volume 103.1 fL (80.0-94.0); Mean Platelet Volume 11.8 fL (7.4-10.4); Platelet Count 97 10^3/uL (130-400); Red Blood Cell Count 2.59 10^6/uL (4.70-6.10); Red Cell Dist. Width 12.3 % (11.5-14.5); White Blood Cell Count 5.4 10^3/uL (4.8-10.8)
[2023-11-08 06:40] LABS: ALT (SGPT) 31 U/L (0-50); AST (SGOT) 73 U/L (17-59); Albumin 2.1 g/dl (3.5-5.0); Alkaline Phosphatase 98 U/L (38-126); Blood Urea Nitrogen 7 mg/dl (9-20); Calcium 7.8 mg/dl (8.4-10.2); Carbon Dioxide 23 mmol/L (22-30); Chloride 104 mmol/L (98-107); Estimated Creatinine Clearance 104 ml/min; Glucose 111 mg/dl (70-99); Potassium 3.6 mmol/L (3.5-5.1); Sodium 130 mmol/L (135-145); Total Bilirubin 1.1 mg/dl (0.2-1.3); eGFR > 60.00
[2023-11-08] MEDS: PROTONIX 40 MG PO (08:51)
[2023-11-08] MEDS: IMDUR (EXTENDED RELEASE) PO (08:51)
[2023-11-08] MEDS: DEMADEX PO (08:52)
[2023-11-08] MEDS: ULTRAM 50 MG PO ×2 (08:57→15:38)
--- NOTE | 2023-11-08 09:33 | W.PN.HOSP.TC ---
Today's Communication/Plan
-
see orders; hold diuretic and continue a few BP meds but hold parameters placed
OOBTC today
A-Gram Thursday
Assessment / Plan
Assessment / Plan
Assessment:
Acute blood loss anemia, enhanced by Plavix
GI bleed, heme+ stools, likely related to mesenteric ischemia
Hx of GERD
- s/p EGD: single duodenal polyp, bx pending
- s/p Colonoscopy: hemorrhoids, multiple polyps in sigmoid colon, internal hemorrhoids.
- continue PPI as daily
Chronic mesenteric ischemia
chronic weight loss
- likely chronic mesenteric angina thus developed food fear and weight loss
- CT: Calcified plaque and stenosis near the origin of the SMA and celiac axis, LOLA patent
- Vascular following; angiogram with possible stenting Thursday
Thrombocytopenia, suspect consumptive from GI bleed, also from limited nutrition from lack of eating
- follow platelet antibodies study
- did not receive any heparin products
- platelets stable >90
Hyponatremia
- Na 130
- IVF
- monitor BMP
+Meth on UDS
Ischemic cardiomyopathy resolving
- hold Torsemide; monitor weights
CAD s/p prior CABG and stenting
Hx of [place]
- no indication for Plavix per Cardiology perspective
- continue ASA per CBC Cards
Essential HTN - �continue BP meds with parameters. Closer to DC will look to simplify regimen
HLD - stable on Crestor, continue.
Possible cirrhosis on imaging
- OP workup including Fibroscan
DVT ppx: SCDs
Code: Full
Anticipated Discharge: > 48 hours
Subjective/Interval History
-
Date of Service: November 08, 2023
pain meds did not help much for post-prandial pain
Hb 9.3 today
low BP from pain meds and lack of eating, some of the BP meds held
Objective Data
-
Labs:
Laboratory Results
11/08/23
05:49
WBC 5.4
Hgb 9.3 L
Hct 26.7 L
Plt Count 97 L
Sodium 130 L
Potassium 3.6
Chloride 104
Carbon Dioxide 23
BUN 7 L
Creatinine 0.7
Glucose 111 H
Calcium 7.8 L
Total Bilirubin 1.1
AST 73 H
ALT 31
Alkaline Phosphatase 98
Vital Signs:
Vital Signs
Temp Pulse Resp BP Pulse Ox
98.4 F 64 18 103/78 96
11/08/23 08:00 11/08/23 08:00 11/08/23 08:00 11/08/23 08:00 11/08/23 08:00
I&O
11/07/23 11/08/23 11/09/23
06:59 06:59 06:59
Intake Total 3220 / 3220
Output Total 250 / 250 700 / 700 450 / 450
Balance 2970 / 2970 -700 / -700 -450 / -450
Physical Exam
-
General: No Apparent Distress
HEENT: Normocephalic and Atraumatic
Respiratory: Negative Wheezes or Rales
Cardiac: Regular Rhythm and S1/S2
GI: Soft and Nontender
Genito-urinary: No Costovertebral Tender
Musculoskeletal: No Edema
Neuro: AO x 3
Hematologic / Lymphatic: No Lymphadenopathy
Psych: Calm
Data Reviewed
-
Total Time Spent with Patient (in minutes): 45
Labs: Labs Reviewed by me
[2023-11-08 09:52] LABS: Platelet Antibody, Direct IgG Negative (Negative); Platelet Antibody, Direct IgM Negative (Negative)
[2023-11-08] MEDS: ROXICODONE 5 MG PO ×2 (12:37→21:08)
[2023-11-08] MEDS: TOPROL XL PO (17:24)
[2023-11-08] MEDS: ASPIR LOW (ENTERIC COATED) 81 MG PO (17:24)
[2023-11-08] MEDS: CRESTOR 20 MG PO (17:24)
[2023-11-09] VITALS (25 sets, daily range): BP systolic 96–134; BP diastolic 57–76
[2023-11-09 07:25] LABS: Hematocrit 28.7 % (39.0-52.0); Hemoglobin 9.9 g/dL (13.0-18.0); Mean Corp Hgb Conc. 34.5 g/dL (33.0-37.0); Mean Corpuscular Hgb 35.6 pg (27.0-31.0); Mean Corpuscular Volume 103.2 fL (80.0-94.0); Mean Platelet Volume 12.1 fL (7.4-10.4); Platelet Count 105 10^3/uL (130-400); Red Blood Cell Count 2.78 10^6/uL (4.70-6.10); Red Cell Dist. Width 12.2 % (11.5-14.5); White Blood Cell Count 5.3 10^3/uL (4.8-10.8)
[2023-11-09] MEDS: PROTONIX 40 MG PO (08:15)
[2023-11-09] MEDS: IMDUR (EXTENDED RELEASE) 30 MG PO (08:15)
[2023-11-09 08:56] LABS: Blood Urea Nitrogen 6 mg/dl (9-20); Calcium 7.7 mg/dl (8.4-10.2); Carbon Dioxide 22 mmol/L (22-30); Chloride 107 mmol/L (98-107); Estimated Creatinine Clearance 104 ml/min; Glucose 86 mg/dl (70-99); Potassium 3.8 mmol/L (3.5-5.1); Sodium 131 mmol/L (135-145); eGFR > 60.00
--- NOTE | 2023-11-09 09:24 | W.PN.HOSP.TC ---
Today's Communication/Plan
-
Angiogram with possible intervention today
continue ASA
continue IVF
Assessment / Plan
Assessment / Plan
Assessment:
Acute blood loss anemia, enhanced by Plavix
GI bleed, heme+ stools, likely related to mesenteric ischemia
Hx of GERD
- s/p EGD: single duodenal polyp, bx pending
- s/p Colonoscopy: hemorrhoids, multiple polyps in sigmoid colon, internal hemorrhoids.
- continue PPI as daily
Chronic mesenteric ischemia
chronic weight loss
- likely chronic mesenteric angina thus developed food fear and weight loss
- CT: Calcified plaque and stenosis near the origin of the SMA and celiac axis, LOLA patent
- Vascular following; angiogram with possible stenting today
- continue ASA; may need Plavix pending intervention
Thrombocytopenia, suspect consumptive from GI bleed, also from limited nutrition from lack of eating
- follow platelet antibodies study
- did not receive any heparin products
- platelets stable >90
Hyponatremia
- Na 131
- IVF while NPO
- monitor BMP
+Meth on UDS
Ischemic cardiomyopathy resolving
- hold Torsemide; monitor weights
CAD s/p prior CABG and stenting
Hx of [place]
- no indication for Plavix per Cardiology perspective but may need for vascular procedure
- continue ASA per CBC Cards
Essential HTN - �continue BP meds with parameters. likely stop Norvasc at discharge due to hypotension.
HLD - stable on Crestor, continue.
Possible cirrhosis on imaging
- OP workup including Fibroscan
DVT ppx: SCDs
Code: Full
Anticipated Discharge: 24 - 48 hours
Subjective/Interval History
-
Date of Service: November 09, 2023
no new complaints
for Angiogram today/noon time
Objective Data
-
Labs:
Laboratory Results
11/09/23
06:35
WBC 5.3
Hgb 9.9 L
Hct 28.7 L
Plt Count 105 L
Sodium 131 L
Potassium 3.8
Chloride 107
Carbon Dioxide 22
BUN 6 L
Creatinine 0.7
Glucose 86
Calcium 7.7 L
Vital Signs:
Vital Signs
Temp Pulse Resp BP Pulse Ox
98.2 F 73 18 134/73 98
11/09/23 07:00 11/09/23 07:00 11/09/23 07:00 11/09/23 07:00 11/09/23 07:00
I&O
11/08/23 11/09/23 11/10/23
06:59 06:59 06:59
Intake Total 2040 / 2040 2840 / 2840
Output Total 2300 / 2300 2900 / 2900 650 / 650
Balance -260 / -260 -60 / -60 -650 / -650
Physical Exam
-
General: No Apparent Distress
HEENT: Normocephalic and Atraumatic
Respiratory: Negative Wheezes or Rales
Cardiac: Regular Rhythm and S1/S2
GI: Soft and Nontender
Genito-urinary: No Costovertebral Tender
Neuro: AO x 3
Hematologic / Lymphatic: No Lymphadenopathy
Psych: Calm
Data Reviewed
-
Total Time Spent with Patient (in minutes): 45
Labs: Labs Reviewed by me
[2023-11-09] MEDS: MORPHINE SULFATE 2 MG IV (11:45)
--- NOTE | 2023-11-09 12:23 | W.PN.UPDATE ---
Update Note
Progress Note Update
I had a long conversation with Chaparro at the bedside. He has chronic postprandial abdominal pain with weight loss. Cross-sectional imaging personally reviewed and demonstrates heavily calcified superior mesenteric artery plaque. Symptoms are
consistent with chronic mesenteric ischemia. Recommending diagnostic mesenteric aortogram with possible superior mesenteric artery IVL/balloon angioplasty/stenting. Technical aspects of the procedure were discussed with him in detail. Benefits
and rationale for the procedure were discussed with him in detail. Operative risks were discussed with him in detail including but not limited to arterial access site injury, bleeding, mesenteric artery injury, distal embolization, small bowel
ischemia, stent thrombosis, open conversion. He expressed a clear understanding of her conversation and agrees to proceed with surgery as detailed.
Radames Koch III, MD
[facility] Vascular Surgery
[phone] (vmrc)
--- NOTE | 2023-11-09 12:27 | W.SUR.PREOP ---
Pre-Operative Surgical Note
-
I have examined this patient prior to the performance of the scheduled procedure.
The patient's condition is unchanged from the time of the current History and
Physical and the patient is able to undergo the scheduled procedure.
--- NOTE | 2023-11-09 13:14 | W.SUR.POST ---
Surgical Immediate Post Op
Note
Pre Op Diagnosis: SMA stenosis
Post Op Diagnosis: same
Procedure Performed: Aortagram, SMA DIAMOND PICKER/stent
Primary Surgeon: August
Anesthesia: local and sedation
Estimated Blood Loss: <2cc
Fluids: see anesthesia flow sheet
Drains/Shunts: none
Specimens/Cultures: none
Doppler/Duplex/Angio (Y/N): Y
Complications: none
Operative Findings: successful stent placement
--- NOTE | 2023-11-09 13:19 | W.PV.INTER ---
VPI Note
Pre Admission Note
Functional Status: Full
Ambulation: Ambulate Independently
Pre Op Medications
Pre Op ASA: Yes
Pre Op Statin: Yes
Pre Op CHRIS Inhibitor/ARB: Yes
Pre Op P2y12 Antagonist: Clopidogrel
Pre Op Beta Blockers: Chronic > 30 Days
Pre Op Chronic Anticoagulant: None
Pre Op Cilostazol: No
Post Op Medications
Post Op ASA: Yes
Post Op Statin: Yes
Post Op CHRIS Inhibitor/ARB: Yes
Post Op P2y12 Antagonist: Clopidogrel
Post Op Beta Blockers: Chronic > 30 Days
Post Op Chronic Anticoagulant: None
Post Op Cilostazol: No
--- NOTE | 2023-11-09 13:46 | CM ---
CM attempted to see patient at bedside earlier today, patient out to procedure. CM will try again to complete assessment.
[2023-11-09] MEDS: NSS 1000 IV (15:47)
--- NOTE | 2023-11-09 16:37 | OR.RPT ---
Operative Report
Operative Report
Date of Operation: 11/09/2023
Pre Op Diagnosis: Suspected chronic mesenteric ischemia with calcified superior mesenteric artery stenosis identified on cross-sectional imaging
Post Op Diagnosis: Suspected chronic mesenteric ischemia with calcified superior mesenteric artery stenosis identified on cross-sectional imaging
Procedure:
1.) Diagnostic aortogram
2.) Selective catheterization of superior mesenteric artery
3.) Balloon angioplasty and stenting of proximal superior mesenteric artery stenosis (7 mm x 59 mm [place] [id number] stent; postdilated with 8 mm angioplasty balloon)
4.) Ultrasound-guided percutaneous access to the right common femoral artery
Surgeon: Radames Koch III, MD
Anesthesia: Sedation with local
Fluoroscopy:
14.5 min
2211 mGy
298.57 Gy.cm2
Complications: None
Estimated Blood Loss: Less than 10 cc
History and Indications for Procedure: 67-year-old male with symptoms consistent with chronic mesenteric ischemia and preoperative cross-sectional imaging demonstrating calcified superior mesenteric artery stenosis
Procedure in Detail: Chaparro Mace was correctly identified and placed supine on the operating table. After adequate induction of anesthesia the bilateral groins were prepped and draped in the usual sterile fashion. A timeout was performed with
the nursing and anesthesia staff confirming the patient's identity as well as the nature and laterality of the procedure.
The right common femoral artery was identified under ultrasound guidance. The artery was patent with some peripheral calcification present. The superior and inferior aspects of the femoral head were identified with radiographic guidance and marked
at the skin level. The proposed puncture site was infiltrated with local anesthesia. We saved a copy of the ultrasound image to the medical record. Under ultrasound guidance we accessed the right common femoral artery with a micropuncture needle and
upsized to a 5 Fr sheath over a Bentson wire. The wire and a pigtail catheter were advanced into the abdominal aorta and the C arm positioned into a lateral projection. A diagnostic aortogram was performed:
Patent aorta with diffuse peripheral wall calcification. Patent celiac artery. Patent superior mesenteric artery. Significant calcified plaque demonstrated in the proximal aspect. Renal arteries patent bilaterally.
Under roadmap guidance using a Glidewire and MHK2 catheter I selected the superior mesenteric artery. Selected arteriogram of the superior mesenteric artery was performed through the MHK2 catheter which demonstrated once again heavily calcified
plaque in the proximal aspect with a proximal stenosis identified. Correlated with preop CT findings.
ENDOVASCULAR INTERVENTION: Systemic heparin was administered. The Glidewire was advanced distally. Through a [place] catheter I exchanged out for a Hathaway wire. Exchanged out for a 7 Fr 45 cm sheath over a Hathaway wire. Radiopaque tip of the
sheath was advanced across the SMA orifice into the proximal artery. Under magnification view and roadmap guidance I positioned a 7 mm x 39 mm [place] VBX stent into the proximal superior mesenteric artery. The stent was positioned in the desired
location with the proximal aspect of the stent extending into the aorta. The stent was deployed by inflating the balloon to nominal pressure. Stent was then postdilated with an 8 mm angioplasty balloon.
COMPLETION ARTERIOGRAM: Excellent technical result. Widely patent superior mesenteric artery stent with no residual stenosis identified. Brisk filling of the superior mesenteric artery with no filling defects or stenoses identified distally.
Satisfied with this result we then concluded the procedure. The wire was removed from the superior mesenteric artery. The sheath tip was pulled back into the right external iliac artery. Protamine was administered.
The patient tolerated the procedure well and was taken to the recovery area in stable condition.
Attestation: I was present and responsible for the entire procedure.
Signed:
Radames Koch III, MD
[facility] Vascular Surgery
[phone] (wetg)
[2023-11-09] MEDS: CRESTOR 20 MG PO (18:13)
[2023-11-09] MEDS: ASPIR LOW (ENTERIC COATED) 81 MG PO (18:13)
[2023-11-09] MEDS: PLAVIX 75 MG PO (18:13)
[2023-11-09] MEDS: TOPROL XL 100 MG PO (18:14)
[2023-11-09 18:47] LABS: Hepatitis B Surface Antigen Negative (Negative)
[2023-11-09 19:05] LABS: Hepatitis A Antibody, Total Negative (Negative); Hepatitis B Core Ab, Total Negative (Negative); Hepatitis B Surface Antibody Negative; Hepatitis C Antibody Negative (Negative)
[2023-11-09] MEDS: ROXICODONE 5 MG PO (20:16)
[2023-11-10] VITALS (7 sets, daily range): BP systolic 97–120; BP diastolic 58–79; PULSE 66; BMI 27.7
[2023-11-10] MEDS: MORPHINE SULFATE 1 MG IV ×3 (00:08→09:03)
--- NOTE | 2023-11-10 07:30 | W.PN.VS ---
Addendum entered and electronically signed by Radames Koch III, MD 11/10/23 10:30:
Seen and examined with ZULMA Giron. I agree with the history/physical exam/assessment/plan.
POD#1 SMA area captain/stent
Still with abd pain, fluctuating in intensity
This morning it is NOT worse than preop but just similar
Has not eaten solid food
On exam he is mildly tender in the epigastrium
Right groin puncture site soft
PO challenge
If he continues to have abd pain would obtain CTA A/P to ensure stent patency
Otherwise continue workup for other sources of abd pain
Call with questions/concerns
F/U with me in the office in 1 month
DAPT
Statin
[id number]
Vascular
[phone]
Original Note:
Today's Communication / Plan
-
Seen and assessed with Dr Koch
Assessment/Plan
-
POD 1 Balloon angioplasty and stenting of proximal superior mesenteric artery stenosis
Plan:
-Groin site stable
-Cont ASA/plavix
-Follow up in vascular office
Subjective Data
-
Date of Service: November 10, 2023
Patient seen at bedside this a.m. with Dr. Koch. Patient states abdominal pain is unchanged. Patient does not have an appetite but has taken in small amounts of clear liquids. No events overnight
Objective Data
-
Vital Signs
Temp Pulse Resp BP Pulse Ox
98.3 F 64 19 97/58 93
11/10/23 03:28 11/10/23 03:28 11/10/23 03:28 11/10/23 03:28 11/10/23 03:28
Intake and Output
11/09/23 11/10/23 11/11/23
06:59 06:59 06:59
Intake Total 2840 / 2840 720 / 720
Output Total 2900 / 2900 1050 / 1050
Balance -60 / -60 -330 / -330
Intake:
Oral fluids 1380 / 1380
IV fluids (Total) 1460 / 1460 720 / 720
Output:
Urine, Voided 2900 / 2900 1050 / 1050
Calcium 7.7 mg/dl (8.4-10.2) L 11/09/23 06:35
Total Bilirubin 1.1 mg/dl (0.2-1.3) 11/08/23 05:49
AST 73 U/L (17-59) H 11/08/23 05:49
ALT 31 U/L (0-50) 11/08/23 05:49
Alkaline Phosphatase 98 U/L (38-126) 11/08/23 05:49
Total Protein 5.0 g/dl (6.3-8.2) L 11/08/23 05:49
Albumin 2.1 g/dl (3.5-5.0) L 11/08/23 05:49
Physical Exam
-
Aaox3
No tachypnea
Abd soft, mild tenderness over upper middle with palpation
Groin site c/d/i, no hematoma or drainage
BL feet warm
[2023-11-10 07:50] LABS: Hematocrit 27.8 % (39.0-52.0); Hemoglobin 9.6 g/dL (13.0-18.0); Mean Corp Hgb Conc. 34.5 g/dL (33.0-37.0); Mean Corpuscular Volume 101.5 fL (80.0-94.0); Mean Platelet Volume 11.5 fL (7.4-10.4); Platelet Count 117 10^3/uL (130-400); Red Blood Cell Count 2.74 10^6/uL (4.70-6.10); Red Cell Dist. Width 12.5 % (11.5-14.5); White Blood Cell Count 5.7 10^3/uL (4.8-10.8)
[2023-11-10] MEDS: PROTONIX 40 MG PO (08:12)
[2023-11-10] MEDS: IMDUR (EXTENDED RELEASE) 30 MG PO (08:12)
[2023-11-10 08:28] LABS: Blood Urea Nitrogen 6 mg/dl (9-20); Calcium 7.9 mg/dl (8.4-10.2); Carbon Dioxide 24 mmol/L (22-30); Chloride 104 mmol/L (98-107); Estimated Creatinine Clearance 121 ml/min; Glucose 97 mg/dl (70-99); Potassium 3.9 mmol/L (3.5-5.1); Sodium 132 mmol/L (135-145); eGFR > 60.00
--- NOTE | 2023-11-10 13:04 | W.PN.HOSP.TC ---
Today's Communication/Plan
-
add bowel regimen
monitor PO intake and post-prandial pain
Assessment / Plan
Assessment / Plan
Assessment:
Acute blood loss anemia, enhanced by Plavix
GI bleed, heme+ stools, likely related to mesenteric ischemia
Hx of GERD
- s/p EGD: single duodenal polyp, bx pending
- s/p Colonoscopy: hemorrhoids, multiple polyps in sigmoid colon, internal hemorrhoids.
- continue PPI as daily
Chronic mesenteric ischemia
chronic weight loss
- likely chronic mesenteric angina thus developed food fear and weight loss
- CT: Calcified plaque and stenosis near the origin of the SMA and celiac axis, LOLA patent
- s/p angiogram and SMA stent placement 11/09
- continue DAPT
- patient remains with post-prandial pain but reports its less severe than prior to stent.
Constipation
- no BM since Thursday
- add bowel regimen, suspect lingering abd discomfort is partly constipation related
Thrombocytopenia, suspect consumptive from GI bleed, also from limited nutrition from lack of eating
- follow platelet antibodies study
- did not receive any heparin products
- platelets stable >90
Hyponatremia
- Na 132
- monitor BMP
+Meth on UDS
Ischemic cardiomyopathy resolving
- resume Torsemide 11/11; reduce to 20mg from 40mg due variable oral intake
- monitor weights
CAD s/p prior CABG and stenting
Hx of [place]
- continue DAPT
Essential HTN - �continue BP meds. Given hypotension, will stop Norvasc and CHRIS. Reduced Toprol to 50mg HS from 100mg. continue Imdur home dose.
HLD - stable on Crestor, continue.
Possible cirrhosis on imaging
- OP workup including Fibroscan
DVT ppx: SCDs
Code: Full
Anticipated Discharge: 24 - 48 hours
Subjective/Interval History
-
Date of Service: November 10, 2023
reports ongoing abd pain, no BM in 4-5 days per patient
Objective Data
-
Labs:
Laboratory Results
11/10/23
06:44
WBC 5.7
Hgb 9.6 L
Hct 27.8 L
Plt Count 117 L
Sodium 132 L
Potassium 3.9
Chloride 104
Carbon Dioxide 24
BUN 6 L
Creatinine 0.6 L
Glucose 97
Calcium 7.9 L
Vital Signs:
Vital Signs
Temp Pulse Resp BP Pulse Ox
98 F 68 18 108/61 97
11/10/23 11:00 11/10/23 11:00 11/10/23 11:00 11/10/23 11:00 11/10/23 11:00
I&O
11/09/23 11/10/23 11/11/23
06:59 06:59 06:59
Intake Total 2840 / 2840 720 / 720
Output Total 2900 / 2900 1050 / 1050
Balance -60 / -60 -330 / -330
Physical Exam
-
General: No Apparent Distress
HEENT: Normocephalic and Atraumatic
Respiratory: Negative Wheezes
Cardiac: Regular Rhythm and S1/S2
GI: Nontender and Distended (firm, normal bowel sounds)
Genito-urinary: No Costovertebral Tender
Neuro: AO x 3
Hematologic / Lymphatic: No Lymphadenopathy
Psych: Calm
Data Reviewed
-
Total Time Spent with Patient (in minutes): 45
Labs: Labs Reviewed by me
[2023-11-10] MEDS: MIRALAX 17 GRAMS PO (15:20)
--- NOTE | 2023-11-10 16:52 | CM ---
Pt had Vascular procedure .
Cardiology involved .
Spoke with patient he said he [place].
Offered VN he declined need again . MD aware .
PLAN Home no anticipated needs
[2023-11-10] MEDS: PLAVIX 75 MG PO (18:18)
[2023-11-10] MEDS: ASPIR LOW (ENTERIC COATED) 81 MG PO (18:18)
[2023-11-10] MEDS: CRESTOR 20 MG PO (18:19)
[2023-11-10] MEDS: TOPROL XL 50 MG PO (18:21)
[2023-11-10] MEDS: ROXICODONE 5 MG PO (20:31)
[2023-11-11 03:55] VITALS: BP 96/60
--- NOTE | 2023-11-11 04:28 | DOWNTIME ---
There was a [employer] Downtime on 11/11/2023 from 0111 to 11/11/2023 at 0405. Downtime documentation of patient's care, including medication administrations, has been reconciled in the electronic record per guidelines. Refer to the
patient's paper chart under the miscellaneous tab to see printed paper medication records and downtime forms.
[2023-11-11 06:00] VITALS: BMI 27.9
[2023-11-11 07:26] LABS: Hemoglobin 9.8 g/dL (13.0-18.0); Mean Corpuscular Volume 102.9 fL (80.0-94.0); Mean Platelet Volume 11.6 fL (7.4-10.4); Platelet Count 117 10^3/uL (130-400); Red Blood Cell Count 2.72 10^6/uL (4.70-6.10); Red Cell Dist. Width 12.3 % (11.5-14.5); White Blood Cell Count 5.6 10^3/uL (4.8-10.8)
[2023-11-11 07:35] VITALS: BP 102/62
[2023-11-11 08:20] LABS: Blood Urea Nitrogen 6 mg/dl (9-20); Calcium 8.2 mg/dl (8.4-10.2); Carbon Dioxide 24 mmol/L (22-30); Chloride 103 mmol/L (98-107); Estimated Creatinine Clearance 121 ml/min; Glucose 98 mg/dl (70-99); Potassium 3.9 mmol/L (3.5-5.1); Sodium 131 mmol/L (135-145); eGFR > 60.00
[2023-11-11] MEDS: MIRALAX PO (09:30)
[2023-11-11] MEDS: FLUSH (NSS) 2 FLUSH IV (09:30)
[2023-11-11] MEDS: PROTONIX 40 MG PO (09:30)
[2023-11-11] MEDS: IMDUR (EXTENDED RELEASE) 30 MG PO (09:31)
[2023-11-11] MEDS: DEMADEX 20 MG PO (09:31)
[2023-11-11 11:01] VITALS: BP 106/66
--- NOTE | 2023-11-11 11:03 | W.PN.HOSP.TC ---
Addendum entered and electronically signed by Gage Rowell MD 11/11/23 11:18:
time of discharge 38 minutes
Original Note:
Today's Communication/Plan
-
Monitor vitals
See plan
Now abdominal pain is improving, discharge today with outpatient follow-up with vascular
Continue with aspirin Plavix
Assessment / Plan
Assessment / Plan
Assessment:
Acute blood loss anemia, enhanced by Plavix
GI bleed, heme+ stools, likely related to mesenteric ischemia
Hx of GERD
- s/p EGD: single duodenal polyp, bx pending
- s/p Colonoscopy: hemorrhoids, multiple polyps in sigmoid colon, internal hemorrhoids.
- continue PPI as daily
Chronic mesenteric ischemia
chronic weight loss
- likely chronic mesenteric angina thus developed food fear and weight loss
- CT: Calcified plaque and stenosis near the origin of the SMA and celiac axis, LOLA patent
- s/p angiogram and SMA stent placement 11/09
- continue DAPT
- patient remains with post-prandial pain but reports its less severe than prior to stent.
Constipation
- no BM since Thursday
- add bowel regimen, suspect lingering abd discomfort is partly constipation related. now with BM and feeling better
Thrombocytopenia, suspect consumptive from GI bleed, also from limited nutrition from lack of eating
- follow platelet antibodies study
- did not receive any heparin products
- platelets stable >90
Hyponatremia
Monitor
+Meth on UDS
Ischemic cardiomyopathy resolving
- resume Torsemide 11/11; reduce to 20mg from 40mg due variable oral intake
- monitor weights
CAD s/p prior CABG and stenting
Hx of [place]
- continue DAPT
Essential HTN - �continue BP meds. Given hypotension, will stop Norvasc and CHRIS. Reduced Toprol to 50mg HS from 100mg. continue Imdur home dose.
HLD - stable on Crestor, continue.
Possible cirrhosis on imaging
- OP workup including Fibroscan
DVT ppx: SCDs
Code: Full
General: No Apparent Distress
HEENT: Normocephalic and Atraumatic
Respiratory: Negative Wheezes
Cardiac: Regular Rhythm and S1/S2
GI: Nontender
Neuro: AO x 3
Psych: Calm
Anticipated Discharge: Today
Subjective/Interval History
-
Date of Service: November 11, 2023
Pain is better
Objective Data
-
Labs:
Laboratory Results
11/11/23
06:32
WBC 5.6
Hgb 9.8 L
Hct 28.0 L
Plt Count 117 L
Sodium 131 L
Potassium 3.9
Chloride 103
Carbon Dioxide 24
BUN 6 L
Creatinine 0.6 L
Glucose 98
Calcium 8.2 L
Vital Signs:
Vital Signs
Temp Pulse Resp BP Pulse Ox
97.3 F 68 18 106/66 96
11/11/23 11:01 11/11/23 11:01 11/11/23 11:01 11/11/23 11:01 11/11/23 11:01
I&O
11/10/23 11/11/23 11/12/23
06:59 06:59 06:59
Intake Total 720 / 720 480 / 480
Output Total 1050 / 1050
Balance -330 / -330 480 / 480
--- NOTE | 2023-11-11 11:16 | W.DCSUMMARY ---
Discharge Summary
Discharge Data
Date of Admission: 11/04/23
Date of Discharge: 11/11/23
-
Pending Results: No
Hospital Course
67-year-old male with past medical history of chronic mesenteric ischemia, ischemic cardiomyopathy, CAD status post prior CABG and stenting, essential hypertension, hyperlipidemia, cirrhosis came to the hospital initially with GI bleed. Patient
ended getting EGD and colonoscopy which showed only polyps. Patient then developed postprandial pain and CT scan was consistent with SMA plaque consistent with chronic mesenteric ischemia. Patient was seen by vascular surgery and was taken for SMA
stent. Postprocedure patient had some pain however overall improved. Patient also had some constipation which over time improved with laxatives. This hospitalization patient also had marginal blood pressure for which his blood pressure
medications were titrated. Once patient pain improved and he was feeling better, he was then discharged home with instructions to follow-up with all his physicians outpatient.
Discharge Plan
-
Patient Disposition: Home (Routine Discharge)
Discharge Diagnosis/Procedures: Acute blood loss anemia
Mesenteric ischemia status post angiogram and SMA stent placement
Postprandial pain
Constipation
Thrombocytopenia
Diet: As tolerated
Activity: No strenuous activity
Bathing Restrictions: OK to Shower
Stand Alone Forms: DC Instr - Vascular OR
Referrals:
Jeimy Irving PA-C [Specified Professional Personl] - 11/26/23 10:30 am (Vascular follow up)
Roger Cristobal MD [Active] - 12/28/23 11:45 am (Please call to reschedule if you can not keep this appointment. If your insurance requires a referral please contact your primary care physician prior to your appointment. )
Alida Hendricks MD [Family Provider] - in less than 1 week
Prescriptions:
New
sennosides [Senna Lax] 8.6 mg Tablet
8.6 mg PO BID Qty: 14 0RF
torsemide 20 mg Tablet
20 mg PO DAILY Qty: 30 0RF
metoprolol succinate 100 mg Tablet Extended Release 24 Hr
50 mg PO QPM Qty: 30 0RF
pantoprazole 40 mg Tablet,Delayed Release (Dr/Ec)
40 mg PO DAILY Qty: 30 0RF
polyethylene glycol 3350 [HealthyLax] 17 gram Powder In Packet
17 g PO DAILY Qty: 14 0RF
tramadol 50 mg Tablet
50 mg PO Q6HPRN PRN (Reason: moderate pain) Qty: 10 0RF
Continued
aspirin 81 MG tablet,delayed release (DR/EC)
81 mg PO QPM
isosorbide mononitrate 30 mg Tablet Extended Release 24 Hr
30 mg PO DAILY
magnesium oxide 200 mg magnesium Tablet
200 mg PO BID
potassium chloride 10 mEq Tablet Extended Release
30 meq PO DAILY
clopidogrel 75 MG tablet
75 mg PO QPM
rosuvastatin 20 MG tablet
20 mg PO QPM
Discontinued
metoprolol succinate 100 MG tablet extended release 24 hr
100 mg PO QPM
torsemide 20 mg Tablet
40 mg PO DAILY
amlodipine [Norvasc] 5 mg Tablet
5 mg PO NOON
pantoprazole [Protonix] 20 mg Tablet,Delayed Release (Dr/Ec)
20 mg PO DAILY
lisinopril 5 mg Tablet
2.5 mg PO NOON
Discharge Orders:
Discharge Patient (As Directed); Ordered 11/11/23
Ordered By: Gage Rowell
Discharge Date and Time
Discharge Date/Time: 11/11/23 13:55
--- NOTE | 2023-11-11 12:37 | CM ---
MD entered order for discharge.
Pt said he is ready for discharge.
Spoke with patient he said friend John will ride home .
Offered VN he declined need again . MD aware .
PLAN Home no anticipated needs
== END 2023-11-11 13:55 | disposition home or self-care (01) | DRG 357 ==
LOC: 4 EAST ACU 12:34
PROVIDERS: Internal Medicine Gastroenterology; Surgery Vascular Surgery; ADMITTING PHYSICIAN Internal Medicine; ATTENDING PHYSICIAN Internal Medicine; CONSULT PHYSICIAN Internal Medicine Cardiovascular Disease; CONSULT PHYSICIAN Nurse Practitioner Adult Health; EMERGENCY PHYSICIAN Emergency Medicine; FAMILY PHYSICIAN Internal Medicine; OTHER PHYSICIAN Nurse Practitioner Acute Care
PROC: 0DB98ZX Excision of Duodenum, Via Natural or Artificial Opening Endoscopic, Diagnostic (ICD-10-PCS; 2023-11-05)
PROC: 0DJD8ZZ Inspection of Lower Intestinal Tract, Via Natural or Artificial Opening Endoscopic (ICD-10-PCS; 2023-11-05)
PROC: 047534Z Dilation of Superior Mesenteric Artery with Drug-eluting Intraluminal Device, Percutaneous Approach (ICD-10-PCS; 2023-11-09)
DX: K55.1 Chronic vascular disorders of intestine (principal); D62 Acute posthemorrhagic anemia; D68.32 Hemorrhagic disorder due to extrinsic circulating anticoagulants; E87.1 Hypo-osmolality and hyponatremia; I25.5 Ischemic cardiomyopathy; D69.6 Thrombocytopenia, unspecified; E78.00 Pure hypercholesterolemia, unspecified; I25.10 Atherosclerotic heart disease of native coronary artery without angina pectoris; I10 Essential (primary) hypertension; K31.7 Polyp of stomach and duodenum; K31.89 Other diseases of stomach and duodenum; K64.0 First degree hemorrhoids; D12.5 Benign neoplasm of sigmoid colon; D12.3 Benign neoplasm of transverse colon; D12.2 Benign neoplasm of ascending colon; D12.0 Benign neoplasm of cecum; I25.2 Old myocardial infarction; Z79.02 Long term (current) use of antithrombotics/antiplatelets
CPT/HCPCS: 88305; 36245; 37236; 71260; 74176; 74177; 75726; 76700; 76937; 80048; 80053; 80306; 80307; 81003; 82607; 82728; 82746; 83540; 83550; 83605; 83690; 84443; 84484; 85014; 85018; 85025; 85027; 85610; 85730; 86023; 86704; 86706; 86708; 86803; 86850; 86900; 86901; 87340; 88342; 93005; 93922; 93925; 93975; 94760; 96374; 97116; 97163; 99285; C1725; C1874; C1894; Q9967

== ENCOUNTER 2023-12-03 13:40 | Inpatient (IN) | payer MEDICARE, SELFPAY ==
[2023-12-01] VITALS (13 sets, daily range): BP systolic 90–151; BP diastolic 43–87; BMI 27.9; BMI 26.5
--- NOTE | 2023-12-01 09:40 | ED.GENMED ---
History of Present Illness
General
Chief Complaint: Chest Pain
Source: patient
Exam Limitations: none
Time Seen by Provider: 12/01/23 09:25
Travel History
Have you had any contact with someone who has COVID-19?: No
Do you have any symptoms of coronavirus? Fever > 100 degrees, chills, cough, shortness of breath, sore throat, loss of taste or smell, muscle aches, or headache?: No
History of Present Illness
History of Present Illness:
See MDM
Past History
Past History
ED Past Medical History: CAD, HTN and Hypercholesterolemia
ED Past Surgical History: Cardiac, Orthopedic and Other (Hernia repair)
Social History
Tobacco: Smoker
Alcohol: Occasional
Drug: None
Phy Exam
Physical Exam
Physical Exam:
See MDM
Scores
Heart Score for Chest Pain Patients
STEMI patient?: No
History: Highly Suspicious
ECG: Nonspecific Repolarization
Age: >/= 65 years
Risk Factors: >/= 3 Risk Factors or History of CAD
Troponin: </= Normal Limit
Heart Score for Chest Pain Patients: 7
Heart Score Risk: 72.7 % MACE over next 6 weeks
Course
Orders/Labs/Results
Orders:
Orders
12/01/23 08:52
ECG [Electrocardiogram (*1)] Urgent
Reason for Study: Chest Pain
EKG- Treatment ONCE
12/01/23 09:25
Cardiac Monitoring- Treatment ONCE
IV Insert/Care/Rem.- Treatment PRN
12/01/23 09:37
Consult Vascular Surgery [Vascular Surgery Consult] Routine
Consulting Provider: Jeimy Taylor
Was physician already notified: Yes
Complete Blood Count/With Diff Urgent
Comprehensive Metabolic Panel Urgent
Lactic Acid Q4H
Comment: CANCEL 2nd LACTIC ACID IF 1st LACTIC ACID IS LESS THAN 2
Lipase Urgent
NT-proBNP Urgent
Troponin I Urgent
12/01/23 09:45
CT Chest/abd/pelvis Angio W/wo Urgent
Comment: Please eval SMA stent
Reason For Exam: Chest and abd pain
Abnormal Lab Results
12/01/23
09:37
RBC 3.39 L 10^6/uL
(4.70-6.10)
Hgb 11.7 L g/dL
(13.0-18.0)
Hct 33.6 L %
(39.0-52.0)
MCV 99.1 H fL
(80.0-94.0)
MCH 34.5 H pg
(27.0-31.0)
MPV 11.4 H fL
(7.4-10.4)
Lymphocytes % 19.0 L %
(20.5-51.1)
Glucose 102 H mg/dl
(70-99)
AST 61 H U/L
(17-59)
Alkaline Phosphatase 155 H U/L
(38-126)
Albumin 3.3 L g/dl
(3.5-5.0)
12/01/23 09:37
12/01/23 09:37
Vital Signs
Initial and Last Documented VS:
Initial Vital Signs
Temp Pulse Resp BP Pulse Ox
98 F 65 18 137/87 100
12/01/23 08:56 12/01/23 08:56 12/01/23 08:56 12/01/23 08:56 12/01/23 08:56
Last Documented Vital Signs
Temp Pulse Resp BP Pulse Ox
98 F 64 21 105/51 99
12/01/23 08:56 12/01/23 12:15 12/01/23 12:15 12/01/23 12:00 03/12/24 11:45
MDM/Problems Addressed
Differential Diagnosis Includes:
HPI and MDM Narrative:
68-year-old male presenting for evaluation of persistent abdominal pain in addition to chest pain and shortness of breath. The abdominal pain has been persistent ever since he had an SMA stent placed for mesenteric ischemia. Patient still
complains of intermittent rectal bleeding. He also complains of pain when he eats as well. Patient has noticed the chest pain and shortness of breath over the past week. Patient had to start using his nitroglycerin tablets again which were unused
for many years. His operations research scientist at [facility] sent him in for evaluation. Patient is high risk given prior cardiac stents and prior CABG
Given his high risk cardiovascular history, will ultimately admit. EKG is nonischemic. Will obtain troponin
Given his recent SMA stent with ongoing pain, vascular surgery made aware who suggested CTA
Physical exam
General: Well appearing and non-toxic
HEENT: protecting airway
Neck: appears supple
CV: No evidence of cyanosis. Regular rate and rhythm
Resp: No accessory muscle use. Lungs clear
Abd: Non-distended. Mid abdominal tenderness without
Extremities: +1 pitting edema bilateral lower extremities
Neuro: alert
Psych: Normal affect
Skin: Intact
Problems Addressed including Acute and Chronic Conditions affecting care:
1. Exertional chest pain
Acuity: acute
Prognosis: unstable
Details: EKG nonischemic. Will obtain troponin to rule out cardiac causes
2. Abdominal pain
Acuity: acute
Prognosis: unstable
Details: Given his recent SMA stent, vascular surgery aware and suggesting CT angiogram
Updates
CTA shows patent SMA stent. Given his exertional symptoms, will make cardiology aware and will admit
Differential Diagnosis (but not limited to): SMA stent occlusion, unstable angina, NSTEMI
Testing considered: D-dimer
Drug therapy (if applicable): OTC meds, please see d/c instruction regarding Rx drugs
Amount and/or Complexity of Data Reviewed
Clinical info obtained from: Patient
External data reviewed: Recent admission for SMA stent
Labs I independently reviewed (but not limited to): Lactic acid and troponin
Radiology: The CT scan was personally and independently reviewed. In addition, official CT report reviewed.
Pulse Ox: not hypoxic
EKG independently reviewed: Sinus rhythm, normal axis, no STEMI
Dry Chain Puller: N/A
Critical Care: N/A
Risk of Complication:
Social Determinants of health: Good social support
Discussed with other providers: Hospitalist, operations research scientist, vascular surgeon
Escalation of Care includes Admit/Obs: Given his exertional symptoms, will admit for cardiac evaluation and further workup
Occasional wrong word or 'sound a like' substitutions may have occurred due to the inherent limitations of voice recognition software. Read the chart carefully and recognize, using context, where substitutions have occurred.
*Critical Care Note
Total Time (30-74mins, 75-104mins- exclusive of procedures): Not Applicable
ED Attending Note
-
Portions of this chart may have been created with voice recognition software.� Occasional wrong word or��sound alike� substitutions may have occurred due to the inherent limitations of voice recognition software.
Discharge Plan
Departure
Patient Disposition: Admit
Date of Disposition: 12/01/23
Time of Disposition: 12:33
Admit to: Telemetry
Presentation/result/management discussed w/ accepting MD/DO: Hospitalist
Discharge Problem:
JOSE (dyspnea on exertion)
Prescriptions:
No Action
aspirin 81 MG tablet,delayed release (DR/EC)
81 mg PO QPM
isosorbide mononitrate 30 mg Tablet Extended Release 24 Hr
30 mg PO DAILY
magnesium oxide 200 mg magnesium Tablet
200 mg PO TID
potassium chloride 10 mEq Tablet Extended Release
10 meq PO BID@0800,1300
clopidogrel 75 MG tablet
75 mg PO QPM
rosuvastatin 20 MG tablet
20 mg PO QPM
pantoprazole 40 mg Tablet,Delayed Release (Dr/Ec)
40 mg PO DAILY Qty: 30 0RF
acetaminophen [Tylenol Extra Strength] 500 mg Tablet
1,000 mg PO DAILYPRN PRN (Reason: mild pain)
nitroglycerin 0.4 mg Tablet, Sublingual
0.4 mg SUBLINGUAL [id number] PRN (Reason: chest pain)
Patient Comments:
12/01/2023, per pt., he took 2 tablets yesterday (11/30/2023).
progesterone micronized 100 mg Capsule
100 mg PO HS
torsemide 20 mg tablet
40 mg PO BID@0900,1400
metoprolol succinate 100 mg tablet extended release 24 hr
100 mg PO QPM
Referrals:
Alida Hendricks MD [Family Provider] -
Interventions
Interventions:
*Risk Screen - Suicide Last Done: 12/01/23 08:56
*General Assessment Last Done: 12/01/23 08:56
*Neglect/Abuse Screening Last Done: 12/01/23 08:56
ED- Fall Risk Assessment Last Done: 12/01/23 09:31
*ED COVID-19 Vaccine History Last Done: 12/01/23 09:31
ED- Cardiac Assessment Last Done: 12/01/23 09:48
[2023-12-01 09:52] LABS: % Basophils 0.8 % (0-2); % Immature Granulocytes 0.3 % (0-0.5); % Monocytes 8.7 % (1.7-9.3); % Neutrophils 69.2 % (42.2-75.2); Absolute Basophils 0.1 10^3/uL (0-0.2); Absolute Eosinophils 0.1 10^3/uL (0-0.7); Absolute Lymphocytes 1.4 10^3/uL (1.2-3.4); Absolute Monocytes 0.6 10^3/uL (0.1-0.6); Absolute Neutrophils 4.9 10^3/uL (1.4-6.5); Hematocrit 33.6 % (39.0-52.0); Hemoglobin 11.7 g/dL (13.0-18.0); Mean Corp Hgb Conc. 34.8 g/dL (33.0-37.0); Mean Corpuscular Hgb 34.5 pg (27.0-31.0); Mean Corpuscular Volume 99.1 fL (80.0-94.0); Mean Platelet Volume 11.4 fL (7.4-10.4); Nucleated Red Blood Cells % 0 % (-); Platelet Count 138 10^3/uL (130-400); Red Blood Cell Count 3.39 10^6/uL (4.70-6.10); Red Cell Dist. Width 12.3 % (11.5-14.5); White Blood Cell Count 7.1 10^3/uL (4.8-10.8)
[2023-12-01 10:07] LABS: Lactic Acid 1.5 mmol/L (0.7-2.0)
[2023-12-01 10:09] LABS: ALT (SGPT) 29 U/L (0-50); AST (SGOT) 61 U/L (17-59); Albumin 3.3 g/dl (3.5-5.0); Alkaline Phosphatase 155 U/L (38-126); Blood Urea Nitrogen 11 mg/dl (9-20); Calcium 8.8 mg/dl (8.4-10.2); Carbon Dioxide 25 mmol/L (22-30); Chloride 107 mmol/L (98-107); Estimated Creatinine Clearance 80 ml/min; Glucose 102 mg/dl (70-99); Lipase 272 U/L (23-300); Potassium 3.8 mmol/L (3.5-5.1); Sodium 136 mmol/L (135-145); Total Bilirubin 1.3 mg/dl (0.2-1.3); Total Protein 6.8 g/dl (6.3-8.2); eGFR > 60.00
[2023-12-01 10:20] LABS: NT-proBNP 658 pg/ml; Troponin I 0.012 ng/ml
--- NOTE | 2023-12-01 12:29 | EDRN ---
Pt OOB to BR at this time. Abd pain remains high at 9/10. Pt denies any chest pain but admits to pain post CT scan for 10-12 minutes, did not notify me.
--- NOTE | 2023-12-01 12:31 | EDRN ---
Dr. Cunningham in to see pt at this time.
--- NOTE | 2023-12-01 12:34 | CON.CAR ---
Addendum entered and electronically signed by Jared Zacarias MD 12/01/23 15:00:
I saw and examined the patient.
The SOD FARMER's note was reviewed and I agree with the note.
Comment: 68 year old male (known to Dr. Langford & Dr. Chey Menjivar) with premature coronary artery disease status-post CABG (in 1992 at [facility] at the age of 37; known occluded SVG to diagonal), subsequent coronary stenting (2006; on chronic
aspirin/Plavix), ischemic cardiomyopathy (previous LVEF 40-45%, now normalized), hypertension, hyperlipidemia, prediabetes, and former cigarette use (quit 05/2021), presented with a chief complaint of chest pain. He has also noticed lower extremity
swelling, he does have 1-2+ LE edema, and worsening shortness of breath. Given his symptoms of heart failure this could also be exacerbating his anginal chest pain.
- IV diuretics for acute on chronic HFpEF
- Increase Imdur to 60 mg
- TTE pending
Original Note:
Consultation
Consultation Request
Date/Time Consultation Requested: 12/01/23 12:20
Date/Time Consultation Performed: 12/01/23 12:30
Requesting Provider: Dr. Cunningham
Performing Provider: ZULMA Jean for Dr. Zacarias
Reason for Consultation: Chest pain
Medical History
-
Chief Complaint: Chest pain
History of Present Illness:
Chaparro Mejia is a 68 year old male (known to Dr. Langford & Dr. Chey Menjivar) with premature coronary artery disease status-post CABG (in 1992 at [facility] at the age of 37; known occluded SVG to diagonal), subsequent coronary stenting (2006; on
chronic aspirin/Plavix), ischemic cardiomyopathy (previous LVEF 40-45%, now normalized), hypertension, hyperlipidemia, prediabetes, and former cigarette use (quit 05/2021), presented with a chief complaint of chest pain. He reports his chest pain
started approximately 1 week ago. He describes it as a stabbing pain. He reports the pain is escalating in frequency and duration. He has been taking sublingual nitroglycerin. He has never required these before. He has taken approximately 7
tablets over the past 4 days. He does report he gets relief. His stabbing sensation is worse with activity but does not completely resolve with rest. He reports he was unable to sleep last night due to discomfort. He also states he has been
having abdominal pain after eating since his SMA stent. CAT scan in the ER confirmed stent patency.
Past Medical History
Past Medical History: CAD, CHF, HTN and Hypercholesterolemia
Past Surgical History: Cardiac
Social History
Tobacco: Former Smoker
Alcohol: Occasional
Drug: None
Personal:
Living: With Family
Family History
Family History: Early CAD (Sibling with MA at age 38)
Allergies / Home Medications
Allergy/AdvReac Type Severity Reaction Status Date / Time
No Known Allergies Allergy Verified 12/01/23 08:56
Medication Instructions Recorded Confirmed Type
aspirin 81 mg tablet,delayed 81 mg PO QPM Blood Clot 11/22/20 12/01/23 History
release Prevention/Tx
clopidogrel 75 mg tablet 75 mg PO QPM Blood Clot 11/04/23 12/01/23 History
Prevention/Tx
isosorbide mononitrate 30 mg 30 mg PO DAILY Heart 11/04/23 12/01/23 History
tablet,extended release 24 hr Disease/Condition
magnesium oxide 200 mg PO TID Electrolyte Repletion 11/04/23 12/01/23 History
potassium chloride 10 mEq 10 meq PO BID@0800,1300 11/04/23 12/01/23 History
tablet,extended release Electrolyte Repletion
rosuvastatin 20 mg tablet 20 mg PO QPM High Cholesterol 11/04/23 12/01/23 History
pantoprazole 40 mg tablet,delayed 40 mg PO DAILY #30 tabs 11/11/23 12/01/23 Rx
release
acetaminophen 500 mg tablet 1,000 mg PO DAILYPRN PRN mild pain 12/01/23 12/01/23 History
(Tylenol Extra Strength)
metoprolol succinate 100 mg 100 mg PO QPM 12/01/23 12/01/23 History
tablet,extended release 24 hr
nitroglycerin 0.4 mg sublingual 0.4 mg sublingual [id number] PRN 12/01/23 12/01/23 History
tablet chest pain
progesterone micronized 100 mg 100 mg PO HS 12/01/23 12/01/23 History
capsule
torsemide 20 mg tablet 40 mg PO BID@0900,1400 12/01/23 12/01/23 History
Review of Systems
-
History Source: Patient
All other systems: Negative unless noted
Respiratory: No Symptoms
Cardiac: No Symptoms
Abdomen/GI: No Symptoms
Physical Exam
Vital Signs
Temp Pulse Resp BP Pulse Ox
98 F 64 21 105/51 99
12/01/23 08:56 12/01/23 12:15 12/01/23 12:15 12/01/23 12:00 12/01/23 11:45
Lab Results
12/01/23 09:37
12/01/23 09:37
Troponin I 0.012 ng/ml 12/01/23 09:37
Qgk-S-Gyqbmmbpgys Pept 658 pg/ml 12/01/23 09:37
Physical Exam
General: Well Developed, Well Nourished, No Apparent Distress and Comfortable
HEENT: Normocephalic, Anicteric and Moist Mucous Membranes
Respiratory: Clear and Non Labored Respirations
Cardiac: S1/S2, Regular Rhythm and Peripheral Edema (trace LE edema)
Breast: Deferred by me
GI: Soft, Non Tender, Non Distended and Normal Bowel Sounds
Rectal: Deferred by Provider
Genito-urinary: No Costovertebral Tender
Musculoskeletal: No Clubbing and No Cyanosis
Skin: Warm and Dry
Neuro: AO x 3
Hematologic/Lymphatic: No Lymphadenopathy
Psych: Calm
Impression / Plan
-
Chest pain
-Currently CP free
-Troponin 0.012, trend
-EKG stable
-Increase Imdur to 60mg daily
CAD
-CABG 1992 (age 37) & PCI 2006
-Continue DAPT
-[facility] 10/2022: attempted wiring of the LAD (75% mid LAD and 90% apical LAD stenosis), aborted secondary to severe tortuosity and pleating of the SIFUENTES graft
-He is followed by Dr. Chey Menjivar at [facility] for advanced heart failure management
ICM, HFpEF (recovered EF)
-He reports decrease in oral intake with unchanged weight
-Dry weight may need to be readjusted, furosemide 80mg IV x 1 NOW
-Denies orthopnea & PND, weight stable
-Daily weight, I/O
-Heart failure education
HLD, on rosuvastatin
S/P SMA stent
Data Reviewed
-
EKG: Report Reviewed by me (Sinus rhythm, rate 68)
CT Scan: Report Reviewed by me (CTA: -year-old male (deborah herrera) with premature coronary artery disease status-post CABG (in 1992 at [facility]. at the age of 37; known occluded SVG to diagonal), subsequent coronary stenting (2006; on chronic
aspirin/Plavix), ischemic cardiomyopathy (previous LVEF 40-45%, now normalized), hypertensi)
Medical Tests (Nuc Med, Echo etc): Report Reviewed by me (Prior echocardiogram and cardiac catheterization as above)
Labs: Labs Reviewed by me
Old Records: Requested and Reviewed
--- NOTE | 2023-12-01 14:00 | EDRN ---
Dr. Gregg in to see pt.
--- NOTE | 2023-12-01 14:10 | HPS.HSE ---
Family Physician
-
Family Physician: Alida Hendricks
Chief Complaint
-
Chest pain
History of Present Illness
Patient is a 68 years old male with coronary artery disease, ischemic cardiomyopathy, hypertension, dyslipidemia, recent hospitalization with gastrointestinal hemorrhage/melena where patient was found to have mesenteric ischemia and underwent SMA
stent placement. Patient presents today with acute onset of a sharp mid chest pain with no radiation. Pain occurred early in the morning before meals. Was not relieved with sublingual nitroglycerin. Subsided slowly after. Patient denies any
syncope, palpitations. He has mild epigastric pain. Denies any nausea vomiting. He noticed blood in his stool after recent hospitalization which was self-limited.
While emergency room patient presents hemodynamically stable.
Further workup with CT showed patent SMA stent
ECG and initial troponin level not evident for ischemic changes.
Medical History
Past Medical History
Past Medical History: Reports CAD, CHF, HTN and Hypercholesterolemia
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
Social History
Tobacco: Non-smoker
Drug: Other (Denied)
Employment: Employed
Family History
Family History: Not pertinent
Allergies / Home Medications
Allergies reflects when Allergies were last updated in [facility].
Home Medications with original date entered in [facility]
Allergy/Medication List:
Allergies
Allergy/AdvReac Type Severity Reaction Status Date / Time
No Known Allergies Allergy Verified 12/01/23 08:56
Home Medications
aspirin 81 mg tablet,delayed release 81 mg PO QPM Blood Clot Prevention/Tx 11/22/20
clopidogrel 75 mg tablet 75 mg PO QPM Blood Clot Prevention/Tx 11/04/23
isosorbide mononitrate 30 mg tablet,extended release 24 hr 30 mg PO DAILY Heart Disease/Condition 11/04/23
magnesium oxide 200 mg PO TID Electrolyte Repletion 11/04/23
potassium chloride 10 mEq tablet,extended release 10 meq PO BID@0800,1300 Electrolyte Repletion 11/04/23
rosuvastatin 20 mg tablet 20 mg PO QPM High Cholesterol 11/04/23
acetaminophen 500 mg tablet (Tylenol Extra Strength) 1,000 mg PO DAILYPRN PRN mild pain 12/01/23
metoprolol succinate 100 mg tablet,extended release 24 hr 100 mg PO QPM Blood Pressure 12/01/23
nitroglycerin 0.4 mg sublingual tablet 0.4 mg sublingual [id number] PRN chest pain 12/01/23
pantoprazole 40 mg tablet,delayed release 40 mg PO DAILY Gastrointestinal Issue 12/01/23
progesterone micronized 100 mg capsule 100 mg PO HS Hormonal Agent 12/01/23
torsemide 20 mg tablet 40 mg PO BID@0900,1400 Fluid Retention/Swelling 12/01/23
Review of Systems
-
A 12 point ROS was completed and negative except as noted: Yes
Physical Exam
Vital Signs
Vital Signs
Temp Pulse Resp BP Pulse Ox
98 F 64 21 105/51 99
12/01/23 08:56 12/01/23 12:15 12/01/23 12:15 12/01/23 12:00 12/01/23 11:45
Physical Exam
General: Well Developed, Well Nourished and No Apparent Distress
HEENT: NormoCephalic, Moist mucous membranes and Atraumatic
Respiratory: Clear
Cardiac: S1/S2 and Regular Rhythm; No Murmur or Rub
GI: Soft, Non Tender, Non Distended and Normal Bowel Sounds; No Organomegaly
Rectal: Deferred by Provider
Musculoskeletal: No Clubbing, No Cyanosis and No Edema
Skin: No Rash
Neuro: Nonfocal/grossly intact
Laboratory Results
-
12/01/23 09:37
12/01/23 09:37
Laboratory Results
Lactic Acid Cancelled 12/01/23 13:45
Total Bilirubin 1.3 mg/dl (0.2-1.3) 12/01/23 09:37
AST 61 U/L (17-59) H 12/01/23 09:37
ALT 29 U/L (0-50) 12/01/23 09:37
Alkaline Phosphatase 155 U/L (38-126) H 12/01/23 09:37
Troponin I 0.012 ng/ml 12/01/23 09:37
Lipase 272 U/L (23-300) 12/01/23 09:37
Data Reviewed
-
CT Scan: Report Reviewed by me
Lab Data: Labs Reviewed by me
Impression/Plan
-
IMPRESSION:
Chest pain
Mild epigastric pain.
Conditions prior to admission:
CAD status post CABG 1992/PCI 2006.
Ischemic cardiomyopathy with recovered LVEF.
Essential hypertension
Dyslipidemia
Recent hospitalization with melena and postprandial abdominal pain.
� Unremarkable EGD and colonoscopy.
Mesenteric ischemia status post SMA stent.
Toxicology positive for methamphetamines, patient denies use
PLAN:
Presented with sharp mid chest pain, epigastric pain
Cardiac markers and ECG with no evidence of ischemia.
Echocardiogram is pending.
Cardiology consultation
CAD status post CABG 1992.
Continue aspirin, Imdur, metoprolol, statin
Ischemic cardiomyopathy with recovered EF.
Repeated echocardiogram is pending.
Euvolemic on exam
Continue torsemide
Mesenteric ischemia status post SMA stent.
CTA with patent stent in place.
Continue Plavix
Recent evaluation for gastrointestinal hemorrhage/melena with unremarkable EGD and colonoscopy.
Continue PPI
Recent toxicology positive for methamphetamine.
Patient denies any illicit substances administration.
Full code.
DVT prophylaxis with heparin
--- NOTE | 2023-12-01 14:25 | EDRN ---
Addendum entered by Estela Garrett, ASIM 12/01/23 14:42:
[employer] Specialist Dr. Zacarias.
Original Note:
Physician in room w/ pt at this time.
[2023-12-01] MEDS: LASIX 80 MG IV (14:37)
--- NOTE | 2023-12-01 14:46 | CON.VAS ---
Consultation
Consultation Request
Date/Time Consultation Requested: 12/01/23
Performing Provider: August
Reason for Consultation: SMA stent
Medical History
-
Chief Complaint: SMA Stent
History of Present Illness:
Recent SMA stent
Returns with chest pain
CTA shows widely patent SMA stent
Allergies / Home Medications
Allergy/AdvReac Type Severity Reaction Status Date / Time
No Known Allergies Allergy Verified 12/01/23 08:56
Medication Instructions Recorded Confirmed Type
aspirin 81 mg tablet,delayed 81 mg PO QPM Blood Clot 11/22/20 12/01/23 History
release Prevention/Tx
clopidogrel 75 mg tablet 75 mg PO QPM Blood Clot 11/04/23 12/01/23 History
Prevention/Tx
isosorbide mononitrate 30 mg 30 mg PO DAILY Heart 11/04/23 12/01/23 History
tablet,extended release 24 hr Disease/Condition
magnesium oxide 200 mg PO TID Electrolyte Repletion 11/04/23 12/01/23 History
potassium chloride 10 mEq 10 meq PO BID@0800,1300 11/04/23 12/01/23 History
tablet,extended release Electrolyte Repletion
rosuvastatin 20 mg tablet 20 mg PO QPM High Cholesterol 11/04/23 12/01/23 History
acetaminophen 500 mg tablet 1,000 mg PO DAILYPRN PRN mild pain 12/01/23 12/01/23 History
(Tylenol Extra Strength)
metoprolol succinate 100 mg 100 mg PO QPM Blood Pressure 12/01/23 12/01/23 History
tablet,extended release 24 hr
nitroglycerin 0.4 mg sublingual 0.4 mg sublingual [id number] PRN 12/01/23 12/01/23 History
tablet chest pain
pantoprazole 40 mg tablet,delayed 40 mg PO DAILY Gastrointestinal 12/01/23 12/01/23 History
release Issue
progesterone micronized 100 mg 100 mg PO HS Hormonal Agent 12/01/23 12/01/23 History
capsule
torsemide 20 mg tablet 40 mg PO BID@0900,1400 Fluid 12/01/23 12/01/23 History
Retention/Swelling
Physical Exam
Vital Signs
Temp Pulse Resp BP Pulse Ox
98 F 72 19 105/63 99
12/01/23 08:56 12/01/23 14:37 12/01/23 14:30 12/01/23 14:37 12/01/23 14:30
Lab Results
12/01/23 09:37
12/01/23 09:37
Troponin I 0.012 ng/ml 12/01/23 09:37
Smq-F-Gaqycwpikbx Pept 658 pg/ml 12/01/23 09:37
Assessment / Plan
-
I personally reviewed the CTA images and the report.
Widely patent SMA stent
Continue antiplatelet therapy
Can followup with me in the office for routine surveillance in 6 months
Call with questions/concerns
Data Reviewed
-
CT Scan: Image Personally Visualized and interpreted, Report Reviewed by me and Discussed with Physician
[2023-12-01 15:10] LABS: Troponin I < 0.012 ng/ml
[2023-12-01] MEDS: CRESTOR 20 MG PO (17:21)
[2023-12-01] MEDS: ASPIR LOW (ENTERIC COATED) 81 MG PO (17:21)
[2023-12-01] MEDS: TOPROL XL 100 MG PO (17:21)
[2023-12-01] MEDS: PLAVIX 75 MG PO (17:22)
--- NOTE | 2023-12-01 19:26 | PTCARENOTE ---
Received pt from ER via stretcher, accompanied by ER staff. Pt AAO x3, GILLESPIE well, ambulatory to bed, no c/o weakness/dizziness. VSS. Placed on telemetry:NSR. On room air- pulse ox 93%, no c/o SOB. Abd soft, rounded, pt c/o abd 'aching';
requesting to eat; to start clear liquid diet. Pt DTV; urinal at bedside. Afebrile, skin intact; small reddened area upper mid-back. Oriented to 4East, currently resting quietly. Will continue to monitor.
[2023-12-01 20:07] LABS: Troponin I < 0.012 ng/ml
[2023-12-01] MEDS: HEPARIN 5000 UNITS SC (20:57)
[2023-12-01] MEDS: MAG-TAB SR 84 MG PO (20:57)
[2023-12-01] MEDS: ULTRAM 50 MG PO (21:25)
[2023-12-01] MEDS: BENADRYL 12.5 MG IV (23:11)
[2023-12-02 03:27] VITALS: BP 99/55
[2023-12-02] MEDS: ULTRAM 50 MG PO (03:55)
--- NOTE | 2023-12-02 04:25 | PTCARENOTE ---
pt with complaints of dizziness. advised pt to remain in bed and do not get up by self. pt agreeable. MARKET RESEARCH INTERVIEWER made aware. No new orders at this time.
[2023-12-02 07:40] VITALS: BP 95/56
[2023-12-02] MEDS: HEPARIN 5000 UNITS SC ×2 (08:34→20:50)
[2023-12-02] MEDS: IMDUR (EXTENDED RELEASE) 60 MG PO (08:35)
[2023-12-02] MEDS: PROTONIX 40 MG PO (08:35)
[2023-12-02] MEDS: KCL 10 MEQ PO ×2 (08:35→13:20)
[2023-12-02] MEDS: MAG-TAB SR 84 MG PO ×2 (08:35→20:49)
[2023-12-02] MEDS: DEMADEX 40 MG PO ×2 (08:35→13:59)
[2023-12-02] MEDS: FLUSH (NSS) 1 FLUSH IV (08:35)
--- NOTE | 2023-12-02 10:59 | W.PN.CD ---
Today's Communication / Plan
-
-Patient's condition is consistent with costochondritis as it is significantly reproducible to palpation on examination.
-Cardiac enzymes and EKGs unremarkable.
-Echocardiogram yesterday revealed LVEF of 65-70%, mild to moderate aortic regurgitation.
-Will place the patient on Tylenol 500 mg every 6 x 10 days; will avoid NSAIDs as patient is on aspirin/Plavix.
-Outpatient follow-up with Cardiology.
Impression / Plan
-
Musculoskeletal chest pain (sharp):
-Patient's condition is consistent with costochondritis as it is significantly reproducible to palpation on examination.
-Cardiac enzymes and EKGs unremarkable.
-Will place the patient on Tylenol 500 mg every 6 x 10 days; will avoid NSAIDs as patient is on aspirin/Plavix.
CAD
-CABG 1992 (age 37) & PCI 2006
-On Aspirin/Plavix.
-[facility] 10/2022: attempted wiring of the LAD (75% mid LAD and 90% apical LAD stenosis), aborted secondary to severe tortuosity and pleating of the SIFUENTES graft
-He is followed by Dr. Chey Menjivar at [facility] for advanced heart failure management
ICM, HFpEF (recovered EF)
-He reports decrease in oral intake with unchanged weight
-Dry weight may need to be readjusted, furosemide 80mg IV x 1 NOW
-Denies orthopnea & PND, weight stable
-Echocardiogram yesterday revealed LVEF of 65-70%, mild to moderate aortic regurgitation.
HLD, on rosuvastatin
S/P SMA stent
-Continue aspirin/Plavix.
Physical Exam
Vital Signs/Labs
Vital Signs
Temp Pulse Resp BP Pulse Ox
98.1 F 60 16 95/56 98
12/02/23 07:40 12/02/23 08:35 12/02/23 07:40 12/02/23 08:35 12/02/23 08:32
12/01/23 12/02/23 12/03/23
06:59 06:59 06:59
Actual Weight 81.284 kg
12/01/23 09:37
12/01/23 09:37
12/01/23
09:37
Grq-L-Afnbfxnatab Pept 658
LAB Results
12/01/23 12/01/23 12/01/23
09:37 14:31 19:38
Troponin I 0.012 < 0.012 < 0.012
12/02/23 12/02/23
01:52 06:00
Troponin I Cancelled Cancelled
Physical Exam
Constitutional: No acute distress and Comfortable
EENT: Anicteric
Cardiovascular: Rhythm & rate is regular, Systolic murmur absent, Pedal edema present (trace) and S1S2 is normal
Respiratory: Respiratory effort normal and Lungs clear to auscul.
GI: Soft
Neuro/Psych: AO x 3
Other: Skin (Warm, dry, intact)
Data Reviewed
-
Date of Service: December 02, 2023
Echo: Tracing Personally Visualized and interpreted (Telemetry: Sinus rhythm)
Labs: Labs Reviewed by me
[2023-12-02 11:20] VITALS: BP 93/57
[2023-12-02] MEDS: TYLENOL 500 MG PO ×2 (11:27→18:03)
--- NOTE | 2023-12-02 14:44 | W.PN.HOSP.TC ---
Today's Communication/Plan
-
Trial of Carafate
Tylenol
Assessment / Plan
Assessment / Plan
IMPRESSION:
Chest pain
Mild epigastric pain.
Conditions prior to admission:
CAD status post CABG 1992/PCI 2006.
Ischemic cardiomyopathy with recovered LVEF.
Essential hypertension
Dyslipidemia
Recent hospitalization with melena and postprandial abdominal pain.
� Unremarkable EGD and colonoscopy.
Mesenteric ischemia status post SMA stent.
Toxicology positive for methamphetamines, patient denies use
PLAN:
Presented with sharp mid chest pain, epigastric pain
Cardiac markers and ECG with no evidence of ischemia.
Echocardiogram LVEF 65-70% with mild to moderate AI
Pain might be musculoskeletal, possibly GI, although patient with recent extensive GI workup including EGD.
Start Tylenol with option of costochondritis
Trial of Carafate
CAD status post CABG 1992.
Continue aspirin, Imdur, metoprolol, statin
Ischemic cardiomyopathy with recovered EF.
Repeated echocardiogram is pending.
Euvolemic on exam
Less likely acute CHF given stable respiratory status no evidence of pulmonary edema (mild peripheral edema). Only mildly elevated pro CHF BNP at 600.
Status post single dose of IV Lasix on 11/30
Continue torsemide
Mesenteric ischemia status post SMA stent.
CTA with patent stent in place.
Vascular surgery input appreciated
Continue Plavix
Recent evaluation for gastrointestinal hemorrhage/melena with unremarkable EGD and colonoscopy.
Continue PPI
Recent toxicology positive for methamphetamine.
Patient denies any illicit substances administration.
Full code.
DVT prophylaxis with heparin
Anticipated Discharge: 24 - 48 hours
Subjective/Interval History
-
Date of Service: December 02, 2023
Objective Data
-
Vital Signs:
Vital Signs
Temp Pulse Resp BP Pulse Ox
98.2 F 56 18 98/57 95
03/13/24 11:20 12/02/23 13:59 12/02/23 11:20 12/02/23 13:59 12/02/23 11:20
I&O
12/01/23 12/02/23 12/03/23
06:59 06:59 06:59
Intake Total 0 / 0
Output Total 2199 / 2199
Balance -2199 / -2199
Physical Exam
-
General: Well Developed and No Apparent Distress
HEENT: Normocephalic, Atraumatic and Moist Mucous Membranes
Respiratory: Clear to Auscultation
Cardiac: Regular Rhythm and S1/S2; Negative Murmur, Rub or Gallop
GI: Soft, Nontender, Nondistended and Normal Bowel Sounds; Negative Organomegaly
Rectal: Deferred by Provider
Musculoskeletal: No Clubbing, No Cyanosis and No Edema
Skin: Negative Rash
Neuro: Nonfocal/Grossly Intact
[2023-12-02 15:15] VITALS: BP 97/57
[2023-12-02 15:22] VITALS: BMI 26.5
--- NOTE | 2023-12-02 15:29 | PTCARENOTE ---
Pt AAO x3, GILLESPIE; sits on side of bed/stands at bedside, no c/o weakness/dizziness. Speech soft/slow at times. VSS. Telemetry:NSR, occ PVC's; run of reg noted. Abd soft, rounded, jacoby clear liquids, pt c/o upper abd discomfort/'aching';
Cristino aware; to start PO Carafate. Voiding clear lt kaylyn urine in urinal. Resting in bed at present. Will continue to monitor.
[2023-12-02] MEDS: CARAFATE 1 GRAM PO ×2 (16:16→21:39)
[2023-12-02] MEDS: PLAVIX 75 MG PO (18:02)
[2023-12-02] MEDS: ASPIR LOW (ENTERIC COATED) 81 MG PO (18:02)
[2023-12-02] MEDS: TOPROL XL 100 MG PO (18:03)
[2023-12-02] MEDS: CRESTOR 20 MG PO (18:03)
[2023-12-02 19:58] VITALS: BP 90/54
[2023-12-02 23:13] VITALS: BP 91/53
[2023-12-03] VITALS (10 sets, daily range): BP systolic 91–135; BP diastolic 47–74; PULSE 62–64
[2023-12-03] MEDS: TYLENOL 500 MG PO ×5 (00:59→23:08)
--- NOTE | 2023-12-03 05:00 | PTCARENOTE ---
RN heard pt fall from room and found pt on the ground awake laying on his left side. Pt stated the last thing he remembered was trying to use the urinal, but doesn't remember falling. Pt VSS w/ complaints of L shoulder pain and a left red kelvin on
his cheek. Pt stated he feels dizzy and RN called rapid response. Pt sent for Head CT and Facial Bones CT
--- NOTE | 2023-12-03 05:00 | RR ---
A Rapid Response was called on this patient, please see Rapid Response form.
[2023-12-03 05:04] LABS: Glucose - Point of Care 96 mg/dl (70-99)
--- NOTE | 2023-12-03 05:26 | W.PN.UPDATE ---
Addendum entered and electronically signed by ZULMA Thorpe 12/03/23 06:03:
CT head and facial bones neg for bleed or fractures
Xray shoulder pending
Original Note:
Update Note
Progress Note Update
0500 responded to COMMUNITY EDUCATION SPECIALIST for Pt fall
Pt states he doesn't remember fall. He remembers trying to use urinal then nurses heard noise from room and pt was on ground.
With bp on soft side (90s/50) pt likely had ortho hypotension--> bp after fall 130s/70s HR 60
pt complains of left shoulder pain---> will get xray
pt also hit head and left side face is red ? from trauma and pt is on plavix and heparin sq---> will check ct head/facial bones.
neuro checks q 4 h x 24h
fall precautions
repeat CT head in 6 hrs if any neuro deficits noted
ice pack prn face/shoulder
[2023-12-03 05:49] LABS: % Basophils 0.9 % (0-2); % Eosinophils 2.6 % (0-6); % Immature Granulocytes 0.2 % (0-0.5); % Lymphocytes 24.8 % (20.5-51.1); % Monocytes 9.4 % (1.7-9.3); % Neutrophils 62.1 % (42.2-75.2); Absolute Basophils 0.1 10^3/uL (0-0.2); Absolute Eosinophils 0.2 10^3/uL (0-0.7); Absolute Lymphocytes 1.6 10^3/uL (1.2-3.4); Absolute Monocytes 0.6 10^3/uL (0.1-0.6); Absolute Neutrophils 4.1 10^3/uL (1.4-6.5); Hematocrit 31.8 % (39.0-52.0); Hemoglobin 11.1 g/dL (13.0-18.0); Mean Corp Hgb Conc. 34.9 g/dL (33.0-37.0); Mean Corpuscular Hgb 34.3 pg (27.0-31.0); Mean Corpuscular Volume 98.1 fL (80.0-94.0); Mean Platelet Volume 11.6 fL (7.4-10.4); Nucleated Red Blood Cells % 0 % (-); Platelet Count 125 10^3/uL (130-400); Red Blood Cell Count 3.24 10^6/uL (4.70-6.10); Red Cell Dist. Width 12.1 % (11.5-14.5); Troponin I < 0.012 ng/ml; White Blood Cell Count 6.6 10^3/uL (4.8-10.8)
[2023-12-03 05:56] LABS: Blood Urea Nitrogen 10 mg/dl (9-20); Calcium 8.4 mg/dl (8.4-10.2); Carbon Dioxide 26 mmol/L (22-30); Chloride 101 mmol/L (98-107); Estimated Creatinine Clearance 72 ml/min; Glucose 99 mg/dl (70-99); Magnesium 1.9 mg/dl (1.6-2.3); Potassium 3.7 mmol/L (3.5-5.1); Sodium 131 mmol/L (135-145); eGFR > 60.00
[2023-12-03] MEDS: CARAFATE 1 GRAM PO ×4 (09:08→23:08)
[2023-12-03] MEDS: IMDUR (EXTENDED RELEASE) 60 MG PO (09:08)
[2023-12-03] MEDS: MAG-TAB SR 84 MG PO ×2 (09:08→20:07)
[2023-12-03] MEDS: KCL 10 MEQ PO ×2 (09:09→13:35)
[2023-12-03] MEDS: DEMADEX PO ×2 (09:10→09:17)
[2023-12-03] MEDS: PROTONIX 40 MG PO (09:10)
--- NOTE | 2023-12-03 09:41 | CM ---
(late entry for 12/02/23)
Cm following re: d/c planning
Chart reviewed
CM met with the patient at bedside; IA completed
Pt is here as observation and obs letter was explained and copy provided
[place]
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
Pt appeared frustrated from frequent hospitalizations r/t to cardiac issues and no resolution per him
Pt has no previous SNF hx, has recently had [facility] for home care, & has a r/w & spc for use as needed
Pt confirms prescription coverage an rx's are filled at [facility]
Pt PCP-Alida Hendricks
Pt had a rapid response called this a.m. some minor injuries noted
CM will continue to monitor patient progress and assist with needs as indicated
PLAN; CM following for needs
[2023-12-03] MEDS: ASPIR LOW (ENTERIC COATED) 81 MG PO (17:45)
[2023-12-03] MEDS: TOPROL XL 100 MG PO (17:45)
[2023-12-03] MEDS: CRESTOR 20 MG PO (17:45)
[2023-12-03] MEDS: PLAVIX 75 MG PO (17:46)
--- NOTE | 2023-12-03 18:10 | W.PN.HOSP.TC ---
Today's Communication/Plan
-
Hold diuretics
Decrease Imdur
Continue beta-valerie with caution for persistent bradycardia.
If persistently orthostatic may required IV fluids given back.
Advance diet
Assessment / Plan
Assessment / Plan
IMPRESSION:
Chest pain
Mild epigastric pain.
Conditions prior to admission:
CAD status post CABG 1992/PCI 2006.
Ischemic cardiomyopathy with recovered LVEF.
Essential hypertension
Dyslipidemia
Recent hospitalization with melena and postprandial abdominal pain.
� Unremarkable EGD and colonoscopy.
Mesenteric ischemia status post SMA stent.
Toxicology positive for methamphetamines, patient denies use
PLAN:
Syncopal episode secondary to orthostatic hypotension.
CT scan of the head with no acute abnormalities.
Noted mild bradycardia while on beta-valerie.
Hold torsemide.
Decrease Imdur back to original dose at 30 mg a day.
Continue Toprol with caution for persistent bradycardia.
Presented with sharp mid chest pain, epigastric pain
Cardiac markers and ECG with no evidence of ischemia.
Echocardiogram LVEF 65-70% with mild to moderate AI
Pain might be musculoskeletal, possibly GI, although patient with recent extensive GI workup including EGD.
Start Tylenol with option of costochondritis
Trial of Carafate
CAD status post CABG 1992.
Continue aspirin, Imdur, metoprolol, statin
Ischemic cardiomyopathy with recovered EF.
Repeated echocardiogram is pending.
Euvolemic on exam
Less likely acute CHF given stable respiratory status no evidence of pulmonary edema (mild peripheral edema). Only mildly elevated pro CHF BNP at 600.
Status post single dose of IV Lasix on 11/30
Continue torsemide
Mesenteric ischemia status post SMA stent.
CTA with patent stent in place.
Vascular surgery input appreciated
Continue Plavix
Recent evaluation for gastrointestinal hemorrhage/melena with unremarkable EGD and colonoscopy.
Continue PPI
Recent toxicology positive for methamphetamine.
Patient denies any illicit substances administration.
Full code.
DVT prophylaxis with heparin
Anticipated Discharge: 24 - 48 hours
Subjective/Interval History
-
Date of Service: December 03, 2023
Objective Data
-
Vital Signs:
Vital Signs
Temp Pulse Resp BP Pulse Ox
98.4 F 62 20 103/57 97
12/03/23 15:15 12/03/23 17:45 12/03/23 15:15 12/03/23 17:45 12/03/23 15:15
I&O
12/02/23 12/03/23 12/04/23
06:59 06:59 06:59
Intake Total 0 / 0 2059
Output Total 0 / 0 2074
Balance -2200 / -2200 - /
Physical Exam
-
General: Well Developed and No Apparent Distress
HEENT: Normocephalic, Atraumatic and Moist Mucous Membranes
Respiratory: Clear to Auscultation
Cardiac: Regular Rhythm and S1/S2; Negative Murmur, Rub or Gallop
GI: Soft, Nontender, Nondistended and Normal Bowel Sounds; Negative Organomegaly
Rectal: Deferred by Provider
Musculoskeletal: No Clubbing, No Cyanosis and No Edema
Skin: Negative Rash
Neuro: Nonfocal/Grossly Intact
[2023-12-03] MEDS: HEPARIN 5000 UNITS SC (20:06)
[2023-12-04] VITALS (9 sets, daily range): BP systolic 87–106; BP diastolic 48–61; PULSE 56–62
[2023-12-04] MEDS: TYLENOL 500 MG PO (05:08)
[2023-12-04] MEDS: PROTONIX 40 MG PO (08:39)
[2023-12-04] MEDS: MAG-TAB SR 84 MG PO ×2 (08:40→19:59)
[2023-12-04] MEDS: CARAFATE 1 GRAM PO ×4 (08:40→23:45)
[2023-12-04] MEDS: KCL 10 MEQ PO ×2 (08:41→13:33)
[2023-12-04] MEDS: HEPARIN 5000 UNITS SC ×2 (08:42→19:59)
[2023-12-04] MEDS: IMDUR (EXTENDED RELEASE) PO (08:59)
[2023-12-04 09:26] LABS: % Basophils 0.6 % (0-2); % Eosinophils 2.3 % (0-6); % Immature Granulocytes 0.2 % (0-0.5); % Lymphocytes 23.2 % (20.5-51.1); % Monocytes 10.4 % (1.7-9.3); % Neutrophils 63.3 % (42.2-75.2); Absolute Eosinophils 0.1 10^3/uL (0-0.7); Absolute Lymphocytes 1.1 10^3/uL (1.2-3.4); Absolute Monocytes 0.5 10^3/uL (0.1-0.6); Absolute Neutrophils 3.1 10^3/uL (1.4-6.5); Hematocrit 30.2 % (39.0-52.0); Hemoglobin 10.5 g/dL (13.0-18.0); Mean Corp Hgb Conc. 34.8 g/dL (33.0-37.0); Mean Corpuscular Hgb 34.4 pg (27.0-31.0); Mean Platelet Volume 11.6 fL (7.4-10.4); Nucleated Red Blood Cells % 0 % (-); Platelet Count 108 10^3/uL (130-400); Red Blood Cell Count 3.05 10^6/uL (4.70-6.10); Red Cell Dist. Width 12.1 % (11.5-14.5); White Blood Cell Count 4.8 10^3/uL (4.8-10.8)
[2023-12-04 09:40] LABS: Blood Urea Nitrogen 8 mg/dl (9-20); Calcium 8.2 mg/dl (8.4-10.2); Carbon Dioxide 27 mmol/L (22-30); Chloride 102 mmol/L (98-107); Estimated Creatinine Clearance 102 ml/min; Glucose 106 mg/dl (70-99); Potassium 3.6 mmol/L (3.5-5.1); Sodium 132 mmol/L (135-145); eGFR > 60.00
[2023-12-04] MEDS: NSS 250 IV (09:42)
[2023-12-04 09:44] LABS: Troponin I < 0.012 ng/ml
[2023-12-04] MEDS: TYLENOL 1000 MG PO ×3 (11:46→23:45)
--- NOTE | 2023-12-04 12:00 | PTCARENOTE ---
Pt c/o this am of new left facial numbness extending across lips. Pt also has a continued headache, BP this am 87/49, rechecked 97/60. other VSS. NIH completed due to new numbness, score of 2 for decreased sensation on Left side and Left leg
weakness, pt did admit to prior vascular surgery on left leg which could be contributing to weakness. MD made aware, pt sent for Head CT, lab work ordered, EKG completed, Plan of care ongoing
[2023-12-04] MEDS: MIRALAX 17 GRAMS PO (13:31)
[2023-12-04] MEDS: COLACE 100 MG PO ×2 (13:32→19:59)
--- NOTE | 2023-12-04 14:21 | W.PN.HOSP.TC ---
Today's Communication/Plan
-
Remains hypotensive and orthostatic.
Generalized fatigue, headache possibly related to above.
Hold Imdur.
Hold torsemide
Continue Toprol with caution (borderline bradycardia)
IV fluid bolus
Diet advanced
Given persistent epigastric discomfort continue Carafate (recent extensive GI workup including EGD unremarkable) recent SMA stent potent according to imaging.
Bowel regimen
Physical therapy assessment
Assessment / Plan
Assessment / Plan
IMPRESSION:
Chest pain
Mild epigastric pain.
Persistent headache
Orthostatic hypotension secondary to low volume/overdiuresis
Conditions prior to admission:
CAD status post CABG 1992/PCI 2006.
Ischemic cardiomyopathy with recovered LVEF.
Essential hypertension
Dyslipidemia
Recent hospitalization with melena and postprandial abdominal pain.
� Unremarkable EGD and colonoscopy.
Mesenteric ischemia status post SMA stent.
Toxicology positive for methamphetamines, patient denies use
PLAN:
Syncopal episode secondary to orthostatic hypotension.
CT scan of the head with no acute abnormalities.
Noted mild bradycardia while on beta-valerie.
Hold torsemide.
Decrease Imdur back to original dose at 30 mg a day.
Continue Toprol with caution for persistent bradycardia.
Persistent headache.
Patient complains of left-sided paresthesia.
Neuroexam with very mild 4 out of 5 upper and lower extremity weakness with no sensory deficit.
Follow-up CT scan of the head with no acute abnormalities per
MRI of the brain today (12/03) no acute abnormalities.
Monitor closely
Patient has been on antiplatelet therapy.
Presented with sharp mid chest pain, epigastric pain
Cardiac markers and ECG with no evidence of ischemia.
Echocardiogram LVEF 65-70% with mild to moderate AI
Pain might be musculoskeletal, possibly GI, although patient with recent extensive GI workup including EGD.
Start Tylenol with option of costochondritis
Trial of Carafate
CAD status post CABG 1992.
Continue aspirin, Imdur, metoprolol, statin
Ischemic cardiomyopathy with recovered EF.
Repeated echocardiogram is pending.
Euvolemic on exam
Less likely acute CHF given stable respiratory status no evidence of pulmonary edema (mild peripheral edema). Only mildly elevated pro CHF BNP at 600.
Status post single dose of IV Lasix on 11/30
Currently orthostatic. Holding oral torsemide
IV fluid bolus
Mesenteric ischemia status post SMA stent.
CTA with patent stent in place.
Vascular surgery input appreciated
Continue Plavix
Recent evaluation for gastrointestinal hemorrhage/melena with unremarkable EGD and colonoscopy.
Continue PPI
Recent toxicology positive for methamphetamine.
Patient denies any illicit substances administration.
Full code.
DVT prophylaxis with heparin
Anticipated Discharge: 24 - 48 hours
Subjective/Interval History
-
Date of Service: December 04, 2023
Objective Data
-
Labs:
Laboratory Results
12/04/23
09:15
WBC 4.8
Hgb 10.5 L
Hct 30.2 L
Plt Count 108 L
Sodium 132 L
Potassium 3.6
Chloride 102
Carbon Dioxide 27
BUN 8 L
Creatinine 0.7
Glucose 106 H
Calcium 8.2 L
Vital Signs:
Vital Signs
Temp Pulse Resp BP Pulse Ox
98.5 F 55 18 103/56 99
12/04/23 11:10 12/04/23 11:10 12/04/23 11:10 12/04/23 11:10 12/04/23 11:10
I&O
12/03/23 12/04/23 12/05/23
06:59 06:59 06:59
Intake Total 2059 / 216
Output Total 2074 1650 / 165
Balance -15 / -15 510 / 510
Physical Exam
-
General: Well Developed and No Apparent Distress
HEENT: Normocephalic, Atraumatic and Moist Mucous Membranes
Respiratory: Clear to Auscultation
Cardiac: Regular Rhythm and S1/S2; Negative Murmur, Rub or Gallop
GI: Soft, Nontender, Nondistended and Normal Bowel Sounds; Negative Organomegaly
Rectal: Deferred by Provider
Musculoskeletal: No Clubbing, No Cyanosis and No Edema
Skin: Negative Rash
Neuro: Awake, Alert, Oriented, AO x 3 and Nonfocal/Grossly Intact (Mildly decreased strength on the left upper lower extremity 4 out of 5, with no sensory deficits)
[2023-12-04] MEDS: ASPIR LOW (ENTERIC COATED) 81 MG PO (18:13)
[2023-12-04] MEDS: PLAVIX 75 MG PO (18:14)
[2023-12-04] MEDS: CRESTOR 20 MG PO (18:14)
[2023-12-04] MEDS: TOPROL XL 100 MG PO (18:14)
[2023-12-05] VITALS (9 sets, daily range): BP systolic 93–124; BP diastolic 48–64; PULSE 58–65; O2SAT 98
[2023-12-05] MEDS: TYLENOL 1000 MG PO ×4 (06:14→23:11)
[2023-12-05] MEDS: KCL 10 MEQ PO ×2 (09:21→13:23)
[2023-12-05] MEDS: PROTONIX 40 MG PO (09:22)
[2023-12-05] MEDS: HEPARIN 5000 UNITS SC ×2 (09:22→19:59)
[2023-12-05] MEDS: COLACE 100 MG PO (09:23)
[2023-12-05] MEDS: MIRALAX PO (09:23)
[2023-12-05] MEDS: MAG-TAB SR 84 MG PO ×2 (09:23→19:58)
[2023-12-05] MEDS: IMDUR (EXTENDED RELEASE) PO (09:24)
[2023-12-05] MEDS: CARAFATE 1 GRAM PO ×4 (09:34→19:58)
--- NOTE | 2023-12-05 11:21 | W.PN.HOSP.TC ---
Today's Communication/Plan
-
Monitor for diet tolerance
Orthostatics
restart diuretics in am
Monitor BM
Assessment / Plan
Assessment / Plan
IMPRESSION:
Chest pain
Mild epigastric pain.
Persistent headache
Orthostatic hypotension secondary to low volume/overdiuresis
Conditions prior to admission:
CAD status post CABG 1992/PCI 2006.
Ischemic cardiomyopathy with recovered LVEF.
Essential hypertension
Dyslipidemia
Recent hospitalization with melena and postprandial abdominal pain.
� Unremarkable EGD and colonoscopy.
Mesenteric ischemia status post SMA stent.
Toxicology positive for methamphetamines, patient denies use
PLAN:
Syncopal episode secondary to orthostatic hypotension.
CT scan of the head with no acute abnormalities.
Noted mild bradycardia while on beta-valerie.
Hold torsemide.
Decrease Imdur back to original dose at 30 mg a day.
Continue Toprol with caution for persistent bradycardia.
Persistent headache.
Patient complains of left-sided paresthesia.
Neuroexam with very mild 4 out of 5 upper and lower extremity weakness with no sensory deficit.
Follow-up CT scan of the head with no acute abnormalities per
MRI of the brain today (12/03) no acute abnormalities.
Monitor closely
Patient has been on antiplatelet therapy.
Presented with sharp mid chest pain, epigastric pain
Cardiac markers and ECG with no evidence of ischemia.
Echocardiogram LVEF 65-70% with mild to moderate AI
Pain might be musculoskeletal, possibly GI, although patient with recent extensive GI workup including EGD.
Start Tylenol with option of costochondritis
Trial of Carafate
CAD status post CABG 1992.
Continue aspirin, Imdur, metoprolol, statin
Ischemic cardiomyopathy with recovered EF.
Euvolemic on exam
Less likely acute CHF given stable respiratory status no evidence of pulmonary edema (mild peripheral edema). Only mildly elevated pro CHF BNP at 600.
Status post single dose of IV Lasix on 11/30
Currently orthostatic negative. Restart oral torsemide in am
Mesenteric ischemia status post SMA stent.
CTA with patent stent in place.
Vascular surgery input appreciated
Continue Plavix
Recent evaluation for gastrointestinal hemorrhage/melena with unremarkable EGD and colonoscopy.
Continue PPI
Recent toxicology positive for methamphetamine.
Patient denies any illicit substances administration.
Full code.
DVT prophylaxis with heparin
Anticipated Discharge: 24 - 48 hours
Subjective/Interval History
-
Date of Service: December 05, 2023
Feeling tired and fatigue
Objective Data
-
Vital Signs:
Vital Signs
Temp Pulse Resp BP Pulse Ox
98.2 F 62 16 104/58 98
12/05/23 11:04 12/05/23 11:04 12/05/23 11:04 12/05/23 11:04 12/05/23 11:04
I&O
12/04/23 12/05/23 12/06/23
06:59 06:59 06:59
Intake Total 2160 / 2160 970 / 970
Output Total 1650 / 1650 850 / 850
Balance 510 / 510 120 / 120
Physical Exam
-
General: Well Developed and No Apparent Distress
HEENT: Normocephalic, Atraumatic and Moist Mucous Membranes
Respiratory: Clear to Auscultation
Cardiac: Regular Rhythm and S1/S2; Negative Murmur, Rub or Gallop
GI: Soft, Nontender, Nondistended and Normal Bowel Sounds; Negative Organomegaly
Rectal: Deferred by Provider
Musculoskeletal: No Clubbing, No Cyanosis and No Edema
Skin: Negative Rash
Neuro: Awake, Alert, Oriented, AO x 3 and Nonfocal/Grossly Intact (Mildly decreased strength on the left upper lower extremity 4 out of 5, with no sensory deficits)
Psych: Calm
[2023-12-05 11:48] LABS: % Basophils 0.7 % (0-2); % Eosinophils 2.8 % (0-6); % Immature Granulocytes 0.4 % (0-0.5); % Lymphocytes 21.5 % (20.5-51.1); % Monocytes 10.8 % (1.7-9.3); % Neutrophils 63.8 % (42.2-75.2); Absolute Eosinophils 0.2 10^3/uL (0-0.7); Absolute Lymphocytes 1.2 10^3/uL (1.2-3.4); Absolute Monocytes 0.6 10^3/uL (0.1-0.6); Absolute Neutrophils 3.6 10^3/uL (1.4-6.5); Hematocrit 29.7 % (39.0-52.0); Hemoglobin 9.9 g/dL (13.0-18.0); Mean Corp Hgb Conc. 33.3 g/dL (33.0-37.0); Mean Corpuscular Hgb 33.7 pg (27.0-31.0); Nucleated Red Blood Cells % 0 % (-); Red Blood Cell Count 2.94 10^6/uL (4.70-6.10); Red Cell Dist. Width 12.2 % (11.5-14.5); White Blood Cell Count 5.7 10^3/uL (4.8-10.8)
[2023-12-05 12:08] LABS: Mean Platelet Volume 11.7 fL (7.4-10.4); Platelet Count 93 10^3/uL (130-400)
--- NOTE | 2023-12-05 12:48 | PTCARENOTE ---
Imdur held this morning as per BP parameters. BP 90 - 100s diastolic. Patient states that he has slight dizziness when walking. Reinforced fall precautions with patient and ringing call morales for assistance when getting OOB. Patient's was not
orthostatic. Pulse rate in the 60s. Will maintain telemetry.
[2023-12-05] MEDS: ASPIR LOW (ENTERIC COATED) 81 MG PO (17:44)
[2023-12-05] MEDS: PLAVIX 75 MG PO (17:45)
[2023-12-05] MEDS: CRESTOR 20 MG PO (17:45)
[2023-12-05] MEDS: TOPROL XL 100 MG PO (17:46)
[2023-12-05] MEDS: COLACE PO (20:03)
--- NOTE | 2023-12-05 20:40 | W.PN.UPDATE ---
Update Note
Progress Note Update
Reported by the nursing staff that patient has difficult breathing/severe SOB while walking from the bathroom. SPO2 98% RA. Patient was seen in bed, denied chest pain, diminished lung sound in exam. Covid, flu test, and chest x-ray were ordered.
Patient is former smoker and quit over 2 years ago, will add duo nebs as needed for SOB.
--- NOTE | 2023-12-05 21:00 | PTCARENOTE ---
Pt very SOB when coming from bathroom, 'I am having a hard time breathing'. VSS- notified G[employer]- CXR, flu/covid swabs, and nebs ordered
[2023-12-05 21:49] LABS: COVID-19 Antigen Negative (Negative)
[2023-12-06 03:34] VITALS: BP 98/57
[2023-12-06] MEDS: TYLENOL 1000 MG PO ×4 (05:28→23:23)
[2023-12-06 07:55] VITALS: BP 97/52
[2023-12-06 08:09] LABS: % Basophils 0.6 % (0-2); % Eosinophils 3.9 % (0-6); % Immature Granulocytes 0.4 % (0-0.5); % Lymphocytes 21.6 % (20.5-51.1); % Monocytes 9.5 % (1.7-9.3); Absolute Eosinophils 0.2 10^3/uL (0-0.7); Absolute Lymphocytes 1.1 10^3/uL (1.2-3.4); Absolute Monocytes 0.5 10^3/uL (0.1-0.6); Absolute Neutrophils 3.3 10^3/uL (1.4-6.5); Hematocrit 29.1 % (39.0-52.0); Mean Corp Hgb Conc. 34.4 g/dL (33.0-37.0); Mean Corpuscular Hgb 34.1 pg (27.0-31.0); Mean Corpuscular Volume 99.3 fL (80.0-94.0); Mean Platelet Volume 12.1 fL (7.4-10.4); Nucleated Red Blood Cells % 0 % (-); Platelet Count 90 10^3/uL (130-400); Red Blood Cell Count 2.93 10^6/uL (4.70-6.10); Red Cell Dist. Width 12.2 % (11.5-14.5); White Blood Cell Count 5.1 10^3/uL (4.8-10.8)
[2023-12-06] MEDS: IMDUR (EXTENDED RELEASE) PO (08:41)
[2023-12-06] MEDS: HEPARIN SC (08:51)
[2023-12-06] MEDS: MAG-TAB SR 84 MG PO ×2 (08:55→20:57)
[2023-12-06] MEDS: KCL 10 MEQ PO ×2 (08:55→12:07)
[2023-12-06] MEDS: PROTONIX 40 MG PO (08:55)
[2023-12-06] MEDS: CARAFATE 1 GRAM PO ×4 (08:55→21:03)
[2023-12-06 09:20] LABS: Blood Urea Nitrogen 7 mg/dl (9-20); Carbon Dioxide 22 mmol/L (22-30); Chloride 108 mmol/L (98-107); Estimated Creatinine Clearance 119 ml/min; Glucose 99 mg/dl (70-99); Potassium 3.7 mmol/L (3.5-5.1); Sodium 133 mmol/L (135-145); eGFR > 60.00
[2023-12-06 09:29] LABS: NT-proBNP 1330 pg/ml
[2023-12-06] MEDS: MIRALAX PO (10:10)
[2023-12-06] MEDS: COLACE PO (10:10)
[2023-12-06 11:55] VITALS: BP 109/57
--- NOTE | 2023-12-06 12:27 | W.PN.HOSP.TC ---
Today's Communication/Plan
-
stop hep
hemetest
reduce toprol
trial of torsemide
Assessment / Plan
Assessment / Plan
IMPRESSION:
Chest pain
Mild epigastric pain.
Persistent headache
Orthostatic hypotension secondary to low volume/overdiuresis
Conditions prior to admission:
CAD status post CABG 1992/PCI 2006.
Ischemic cardiomyopathy with recovered LVEF.
Essential hypertension
Dyslipidemia
Recent hospitalization with melena and postprandial abdominal pain.
� Unremarkable EGD and colonoscopy.
Mesenteric ischemia status post SMA stent.
Toxicology positive for methamphetamines, patient denies use
PLAN:
Syncopal episode secondary to orthostatic hypotension.
CT scan of the head with no acute abnormalities.
Noted mild bradycardia while on beta-valerie.
Decrease Imdur back to original dose at 30 mg a day.
Continue Toprol but will reduce dose to 75mg with caution for persistent bradycardia.
Persistent headache.
Patient complains of left-sided paresthesia.
Neuro exam with very mild 4 out of 5 upper and lower extremity weakness with no sensory deficit.
Follow-up CT scan of the head with no acute abnormalities per
MRI of the brain (12/03) no acute abnormalities.
Monitor closely
Patient has been on antiplatelet therapy.
Presented with sharp mid chest pain, epigastric pain
Cardiac markers and ECG with no evidence of ischemia.
Echocardiogram LVEF 65-70% with mild to moderate AI
Pain might be musculoskeletal, possibly GI, although patient with recent extensive GI workup including EGD.
Start Tylenol with option of costochondritis
Trial of Carafate
CAD status post CABG 1992.
Continue aspirin, Imdur, metoprolol, statin
Ischemic cardiomyopathy with recovered EF.
Euvolemic on exam
Less likely acute CHF given stable respiratory status no evidence of pulmonary edema (mild peripheral edema). Only mildly elevated pro CHF BNP at 600.
Status post single dose of IV Lasix on 3/12
Currently orthostatic negative. Restart oral torsemide 40mg daily (instead of BID) if BP can tolerate it.
CXR this am clear but probnp elevated.
Mesenteric ischemia status post SMA stent.
CTA with patent stent in place.
Vascular surgery input appreciated
Continue Plavix
Recent evaluation for gastrointestinal hemorrhage/melena with unremarkable EGD and colonoscopy.
Continue PPI
States of blood in stool-stop hep. Hgb stable. Hemetest. Recent EGD/Colon
Recent toxicology positive for methamphetamine.
Patient denies any illicit substances administration.
Full code.
DVT prophylaxis with heparin
Anticipated Discharge: 24 - 48 hours
Subjective/Interval History
-
Date of Service: December 06, 2023
States of epigastric abd pain
not much appetite
was feeling sob earlier
states of blood in stool
straining bowels at times
on 2L NC now
Objective Data
-
Labs:
Laboratory Results
12/06/23 12/06/23
06:28 08:57
WBC 5.1
Hgb 10.0 L
Hct 29.1 L
Plt Count 90 L
Sodium 133 L
Potassium 3.7
Chloride 108 H
Carbon Dioxide 22
BUN 7 L
Creatinine 0.6 L
Glucose 99
Calcium 8.0 L
Vital Signs:
Vital Signs
Temp Pulse Resp BP Pulse Ox
98.0 F 50 20 97/52 98
12/06/23 07:55 12/06/23 07:55 12/06/23 07:55 12/06/23 07:55 12/06/23 07:55
I&O
12/05/23 12/06/23 12/07/23
06:59 06:59 06:59
Intake Total 970 / 970 1120 / 1120
Output Total 850 / 850 700 / 700
Balance 120 / 120 420 / 420
Physical Exam
-
General: Well Developed and No Apparent Distress
HEENT: Normocephalic, Atraumatic, Moist Mucous Membranes and Oxygen (2L)
Respiratory: Clear to Auscultation
Cardiac: Regular Rhythm and S1/S2; Negative Murmur, Rub or Gallop
GI: Soft, Nondistended, Normal Bowel Sounds and Tender; Negative Organomegaly
Rectal: Deferred by Provider
Musculoskeletal: No Clubbing, No Cyanosis and No Edema
Skin: Negative Rash
Neuro: Awake, Alert, Oriented, AO x 3 and Nonfocal/Grossly Intact (Mildly decreased strength on the left upper lower extremity 4 out of 5, with no sensory deficits)
Psych: Calm
Data Reviewed
-
Total Time Spent with Patient (in minutes): 55
[2023-12-06] MEDS: DEMADEX 40 MG PO (14:00)
[2023-12-06 15:54] VITALS: BP 104/60
[2023-12-06] MEDS: CRESTOR 20 MG PO (17:46)
[2023-12-06] MEDS: ASPIR LOW (ENTERIC COATED) 81 MG PO (17:46)
[2023-12-06] MEDS: PLAVIX 75 MG PO (17:47)
[2023-12-06] MEDS: TOPROL XL 75 MG PO (17:47)
[2023-12-06 19:00] VITALS: BP 104/56; BP 94/61; BP 99/52; PULSE 61; PULSE 62; PULSE 79
--- NOTE | 2023-12-06 19:34 | PTCARENOTE ---
This morning patient had complaints of diffuse abdominal pain, dizziness, and SOB. Notified MD of all complaints. Heparin placed on hold. Heme test stools. Patient had a large BM that was heme negative without any visible blood. Chem Panel drawn
with electrolytes WNL. Imdur held as per parameters - BP was 90s/50s. EKG done without any changes or concern for ischemia. Later in the day dizziness resolved. Patient placed on 2L NC of oxygen for a few hours and SOB resolved. Lungs CTA and pulse
ox never dropped.
[2023-12-06] MEDS: COLACE 100 MG PO (20:57)
[2023-12-06 23:47] VITALS: BP 91/53
[2023-12-07] VITALS (10 sets, daily range): BP systolic 95–149; BP diastolic 50–88; PULSE 55–73; O2SAT 98–100
[2023-12-07] MEDS: TYLENOL 1000 MG PO ×3 (06:28→23:07)
[2023-12-07] MEDS: CARAFATE 1 GRAM PO ×4 (06:29→23:06)
[2023-12-07 07:24] LABS: % Basophils 0.6 % (0-2); % Immature Granulocytes 0.4 % (0-0.5); % Lymphocytes 23.5 % (20.5-51.1); % Monocytes 9.7 % (1.7-9.3); % Neutrophils 60.8 % (42.2-75.2); Absolute Eosinophils 0.3 10^3/uL (0-0.7); Absolute Lymphocytes 1.2 10^3/uL (1.2-3.4); Absolute Monocytes 0.5 10^3/uL (0.1-0.6); Absolute Neutrophils 3.1 10^3/uL (1.4-6.5); Hematocrit 30.5 % (39.0-52.0); Hemoglobin 10.4 g/dL (13.0-18.0); Mean Corp Hgb Conc. 34.1 g/dL (33.0-37.0); Mean Corpuscular Hgb 34.6 pg (27.0-31.0); Mean Corpuscular Volume 101.3 fL (80.0-94.0); Mean Platelet Volume 11.5 fL (7.4-10.4); Nucleated Red Blood Cells % 0 % (-); Platelet Count 103 10^3/uL (130-400); Red Blood Cell Count 3.01 10^6/uL (4.70-6.10); Red Cell Dist. Width 12.4 % (11.5-14.5)
[2023-12-07 08:00] LABS: Blood Urea Nitrogen 11 mg/dl (9-20); Calcium 8.2 mg/dl (8.4-10.2); Carbon Dioxide 27 mmol/L (22-30); Chloride 102 mmol/L (98-107); Estimated Creatinine Clearance 90 ml/min; Glucose 100 mg/dl (70-99); Potassium 3.7 mmol/L (3.5-5.1); Sodium 136 mmol/L (135-145); eGFR > 60.00
[2023-12-07] MEDS: IMDUR (EXTENDED RELEASE) PO (08:13)
[2023-12-07] MEDS: PROTONIX 40 MG PO (08:14)
[2023-12-07] MEDS: KCL 10 MEQ PO ×2 (08:14→17:15)
[2023-12-07] MEDS: COLACE 100 MG PO ×2 (08:14→20:35)
[2023-12-07] MEDS: MAG-TAB SR 84 MG PO ×2 (08:14→20:35)
[2023-12-07] MEDS: DEMADEX 40 MG PO (08:15)
[2023-12-07] MEDS: MIRALAX PO (08:16)
[2023-12-07] MEDS: IMDUR (EXTENDED RELEASE) 30 MG PO (09:05)
--- NOTE | 2023-12-07 10:15 | W.PN.CD ---
Addendum entered and electronically signed by Jorje Kennedy MD 12/07/23 12:13:
68 yo male with complex CAD, prior CABG and PCI, admitted with chest pain. Last year, had cath here with stenosis distal to SIFUENTES touchdown in LAD and unable to PCI. He was also evaluated by Dr Armijo at [facility] and he reports he was told the
procedure would be too high risk to re-attempt. Exam with RRR, no murmurs, no edema. Cr 0.8.
His med regimen has been limited by BP. Currently on imdur 30mg daily, Toprol XL 75mg qHS. Will add ranexa 500mg bid.
Original Note:
Today's Communication / Plan
-
Start Ranexa 500mg BID
Impression / Plan
-
BACKGROUND: �68M (known to Dr. Langford & Dr. Chey Menjivar) with premature coronary artery disease status-post CABG (in 1992 at [facility] at the age of 37; known occluded SVG to diagonal), subsequent coronary stenting (2006; on chronic aspirin/Plavix),
ischemic cardiomyopathy (previous LVEF 40-45%, now recovered), hypertension, hyperlipidemia, prediabetes, and former cigarette use (quit 05/2021), presented with a chief complaint of chest pain.
IMPRESSION/PLAN:
Chest pain
-Currently CP free, chest burning at rest and with exertion lasting less than 5 minutes without intervention
-Maximize anti-anginals, this is limited by BP
-Cardiac enzymes and EKGs stable
-CT PE pending
CAD
-CABG 1992 (age 37) & PCI 2006
-On Aspirin/Plavix.
-[facility] 10/2022: attempted wiring of the LAD (75% mid LAD and 90% apical LAD stenosis), aborted secondary to severe tortuosity and pleating of the SIFUENTES graft, films reviewed by interventional cardiology at admission
-He is followed by Dr. Chey Menjivar at [facility] for advanced heart failure management
ICM, HFpEF (recovered EF)
-He reports decrease in oral intake with unchanged weight
-Dry weight may need to be readjusted, furosemide 80mg IV x 1 NOW
-Denies orthopnea & PND, weight stable
-Echocardiogram this admission with LVEF of 65-70%, mild to moderate aortic regurgitation.
Syncope, inpatient 12/03/23
-Believed to be in the setting of orthostatic hypotension, medications decreased
Abdominal pain, per primary
HLD, on rosuvastatin
S/P SMA stent, continue aspirin/Plavix.
UDS positive for methamphetamines last month, denies drug use
SUBJECTIVE:
Currently CP free.
Abdominal pain last night. 'It happens every night.'
Physical Exam
Vital Signs/Labs
Vital Signs
Temp Pulse Resp BP Pulse Ox
98.3 F 53 18 105/88 100
12/07/23 07:40 12/07/23 09:22 12/07/23 09:22 12/07/23 09:22 12/07/23 09:22
12/07/23 06:58
12/07/23 06:58
Magnesium 2.0 mg/dl (1.6-2.3) 12/06/23 08:57
12/01/23 12/06/23
09:37 08:57
[id number] Pept [id number]
Physical Exam
Constitutional: No acute distress and Comfortable
EENT: Anicteric and Moist mucous membranes
Cardiovascular: Rhythm & rate is regular, Pedal edema is absent, S1S2 is normal and Murmur/rub/gallop absent
Respiratory: Respiratory effort normal and Lungs clear to auscul.
GI: Soft, Distention absent, Flat, Normal bowel sounds and Abdomen is tender
Neuro/Psych: AO x 3
Other: Skin (warm and dry)
Data Reviewed
-
Date of Service: December 07, 2023
Medical Decision Making: Reviewed Test Results
EKG: Report Reviewed by me
Medical Tests (PFT, Pathology etc): Report Reviewed by me
Labs: Labs Reviewed by me
Old Records: Reviewed
--- NOTE | 2023-12-07 10:33 | W.PN.HOSP.TC ---
Addendum entered and electronically signed by Leonardo Gregg MD 12/07/23 15:51:
Patient seen and examined
Discussed with residents
Impression and plan:
Complains of pleuritic chest/epigastric pain
Patient with history of complex CAD status post CABG with limited options for revascularization.
Currently with negative cardiac markers as well as ECG showed no ischemia
Discussed with cardiology
Will be initiated on Ranexa
Continue beta-blockers at reduced dose for bradycardia. Continue Imdur. Avoid hypotension
Ischemic cardiomyopathy
Chronic CHF preserved EF.
Volume status compensated likely mildly dehydrated and improved with IV fluid bolus last week.
Torsemide resumed at the lower dose.
Given persistent chest pain, elevated natruretic peptide, epigastric pain, repeat CTA chest abdomen pelvis performed today and negative for pulmonary embolism. SMA stent potent..
Original Note:
Today's Communication/Plan
-
Start Ranolazine 500mg BID
Repeat CTA chest/abd/pelvis
Repeat Cardiac Enzymes and EKG stable
Assessment / Plan
Assessment / Plan
IMPRESSION:
Chest pain
Mild epigastric pain.
Persistent headache
Orthostatic hypotension secondary to low volume/overdiuresis
Conditions prior to admission:
CAD status post CABG 1992/PCI 2006.
Ischemic cardiomyopathy with recovered LVEF.
Essential hypertension
Dyslipidemia
Recent hospitalization with melena and postprandial abdominal pain.
� Unremarkable EGD and colonoscopy.
Mesenteric ischemia status post SMA stent.
Toxicology positive for methamphetamines, patient denies use
PLAN:
Syncopal episode secondary to orthostatic hypotension.
CT scan of the head with no acute abnormalities.
Noted mild bradycardia while on beta-valerie.
Decrease Imdur back to original dose at 30 mg a day.
Continue Toprol but will reduce dose to 75mg with caution for persistent bradycardia.
Persistent headache.
Patient complains of left-sided paresthesia.
Neuro exam with very mild 4 out of 5 upper and lower extremity weakness with no sensory deficit.
Follow-up CT scan of the head with no acute abnormalities per
MRI of the brain (12/03) no acute abnormalities.
Monitor closely
Patient has been on antiplatelet therapy.
Presented with sharp mid chest pain, epigastric pain
Cardiac markers and ECG with no evidence of ischemia.
Echocardiogram LVEF 65-70% with mild to moderate AI
Pain might be musculoskeletal, possibly GI, although patient with recent extensive GI workup including EGD.
Start Tylenol with option of costochondritis
Trial of Carafate
CAD status post CABG 1992.
Continue aspirin, Imdur, metoprolol, statin
Ischemic cardiomyopathy with recovered EF.
Euvolemic on exam
Less likely acute CHF given stable respiratory status no evidence of pulmonary edema (mild peripheral edema). Only mildly elevated pro CHF BNP at 600.
Status post single dose of IV Lasix on 11/30
Currently orthostatic negative. Restart oral torsemide 40mg daily (instead of BID) if BP can tolerate it.
Mesenteric ischemia status post SMA stent.
CTA with patent stent in place.
Vascular surgery input appreciated
Continue Plavix
Recent evaluation for gastrointestinal hemorrhage/melena with unremarkable EGD and colonoscopy.
Continue PPI
States of blood in stool-stop hep. Hgb stable. Hemetest. Recent EGD/Colon
Recent toxicology positive for methamphetamine.
Patient denies any illicit substances administration.
Full code.
DVT prophylaxis with heparin
Anticipated Discharge: > 48 hours
Subjective/Interval History
-
Patient reports abdominal pain today. Reports pain is generalized, and rates pain 8 out of 10. Reports pain doesn't radiate anywhere else. Nothing makes the pain, but gets worse after meals. Reports chest pain today also. Patient reports Chest pain
is a 3/10, pain at rest and with exertion that lasts 3-5minutes. Patient coughing at bedside with productive mucus that is clear. Reports cough has been present for the past year.
Objective Data
-
Labs:
Laboratory Results
12/07/23
06:58
WBC 5.0
Hgb 10.4 L
Hct 30.5 L
Plt Count 103 L
Sodium 136
Potassium 3.7
Chloride 102
Carbon Dioxide 27
BUN 11
Creatinine 0.8
Glucose 100 H
Calcium 8.2 L
Vital Signs:
Vital Signs
Temp Pulse Resp BP Pulse Ox
98.3 F 53 18 105/88 100
12/07/23 07:40 12/07/23 09:22 12/07/23 09:22 12/07/23 09:22 12/07/23 09:22
I&O
12/06/23 12/07/23 12/08/23
06:59 06:59 06:59
Intake Total 1120 / 1120 1300 / 1300
Output Total 700 / 700 3300 / 3300
Balance 420 / 420 -2000 / -2000
Review of Systems
-
History Source: Patient
Respiratory: Reports Cough
Cardiac: Reports Chest Pain
Abdomen/GI: Reports Abdominal Pain
Musculoskeletal: Reports No Symptoms
Physical Exam
-
General: Well Developed
HEENT: Normocephalic and Atraumatic
Respiratory: Clear to Auscultation; Negative Rales or Rhonchi
Cardiac: Regular Rhythm and S1/S2; Negative Murmur
GI: Soft, Normal Bowel Sounds and Tender (generalized abdominal tenderness on palpation)
Musculoskeletal: No Clubbing, No Cyanosis and No Edema
Neuro: Awake, Alert, Oriented and AO x 3
Psych: Calm
Data Reviewed
-
Labs: Labs Reviewed by me and Discussed with Physician
[2023-12-07 10:43] LABS: D-Dimer 1.98 ug/mlFEU (0.00-0.50)
[2023-12-07 10:53] LABS: Troponin I < 0.012 ng/ml
[2023-12-07] MEDS: TYLENOL PO (11:27)
[2023-12-07] MEDS: RANEXA EXTENDED RELEASE 500 MG PO ×2 (11:40→20:36)
--- NOTE | 2023-12-07 15:32 | PN.CDI ---
CDI
- -
CDI:
Physician Documentation Request
Admit Date: 12/03/23 13:40
Dear Doctor Cristino,
Please review the following and provide your response in the progress notes.
Clinical Indicators:
Laboratory Tests
12/01/23 12/03/23 12/04/23
09:37 05:18 09:15
Sodium 136 131 L 132 L
12/06/23 12/07/23
08:57 06:58
Sodium 133 L 136
Please clarify in the progress notes, the appropriate diagnosis, if significant, that supports the above abnormalities and additional evaluation, monitoring and/or treatment rendered:
Hyponatremia
Abnormal lab value clinically insignificant
Other
Use of terms such as suspected, likely, concern for, or probable (associated with a specific diagnosis that is being evaluated, monitored, or treated as if it exists) are acceptable and can be coded in the inpatient setting, when documented at the
time of discharge.
Thank you,
Aparna Agarwal RN BSN CCDS
CDI Specialist
please contact via tiger text
Please use your independent medical judgment in providing your response.
--- NOTE | 2023-12-07 15:36 | PN.CDI ---
Addendum entered and electronically signed by Leonardo Gregg MD 12/24/23 15:03:
Unable to comment
Original Note:
CDI
- -
CDI:
Physician Documentation Request
Admit Date: 12/03/23 13:40
Dear Doctor Cristino,
Please review the following and provide your response in the progress notes.
Clinical Indicators:
The diagnosis of moderate spinal cord compression was included in the signed Brain MRI report.
MRI, Brain, 12/03
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
#...mild to moderate spinal cord compression and central canal stenosis at C3/C4.
Please indicate in the progress notes that the above diagnosis is valid for this patient:
Moderate spinal cord compression is a valid diagnosis (Please include it in your progress notes)
Moderate spinal cord compression is not a valid diagnosis for this patient
Moderate spinal cord compression is not yet confirmed but remains a suspected condition
Other
Use of terms such as suspected, likely, concern for, or probable are acceptable for a diagnosis that is being evaluated, monitored or treated as if it exists and can be coded in the inpatient setting, when documented at the time of discharge.
Thank you,
Aparna Agarwal RN BSN CCDS
CDI Specialist
please contact via Coravin getachew
Please use your independent medical judgment in providing your response.
[2023-12-07] MEDS: PLAVIX 75 MG PO (17:16)
[2023-12-07] MEDS: ASPIR LOW (ENTERIC COATED) 81 MG PO (17:16)
[2023-12-07] MEDS: CRESTOR 20 MG PO (17:16)
[2023-12-07] MEDS: TOPROL XL 75 MG PO (17:25)
[2023-12-08] VITALS (7 sets, daily range): BP systolic 96–115; BP diastolic 53–65; PULSE 61–73; O2SAT 98; BMI 26.8
--- NOTE | 2023-12-08 03:30 | PTCARENOTE ---
Pt experienced nosebleed from Rt nare which after about 30 minutes was controlled with pressure and ice to bridge of nose. Pt coughed up mod sized blood clot x2 related to post nasal blood. Pt instructed not to blow nose or insert anything into nare.
--- NOTE | 2023-12-08 06:12 | PTCARENOTE ---
No further nose bleed. No chest pain through the night.
[2023-12-08] MEDS: TYLENOL 1000 MG PO ×4 (07:29→23:50)
[2023-12-08] MEDS: MIRALAX 17 GRAMS PO (08:19)
[2023-12-08] MEDS: MAG-TAB SR 84 MG PO ×2 (08:22→19:54)
[2023-12-08] MEDS: KCL 10 MEQ PO ×2 (08:22→12:14)
[2023-12-08] MEDS: COLACE 100 MG PO ×2 (08:22→19:54)
[2023-12-08] MEDS: PROTONIX 40 MG PO (08:22)
[2023-12-08] MEDS: CARAFATE 1 GRAM PO ×4 (08:23→22:45)
[2023-12-08] MEDS: RANEXA EXTENDED RELEASE 500 MG PO ×2 (08:23→19:54)
[2023-12-08] MEDS: DEMADEX PO (08:26)
[2023-12-08] MEDS: IMDUR (EXTENDED RELEASE) PO (08:27)
--- NOTE | 2023-12-08 08:28 | PTCARENOTE ---
Pt had episode of nose bleed this morning on overnight shift. No nose bleed this morning on day shift. pt a+ox3 in no distress
--- NOTE | 2023-12-08 08:50 | W.PN.CD ---
Today's Communication / Plan
-
-Patient with refractory angina; poor candidate for any cardiac interventions.
-Continue Aspirin/Plavix; supportive care/conservative management.
-Will decrease Toprol-XL from 75 mg to 50 mg daily to allow blood pressure room for Imdur 30 mg daily.
-Continue Ranexa 500 mg BID.
-Not grossly volume overloaded on examination; will decrease torsemide to 20 mg daily to rule out more blood pressure room for other cardiac medications.
-He is followed by Dr. Chey Menjivar at [facility] for advanced heart failure management; would not be a candidate for heart transplantation.
-UDS positive for methamphetamines last month, denies drug use.
-Recommend Palliative Care/Hospice consultation.
Impression / Plan
-
BACKGROUND: �68M (known to Dr. Langford & Dr. Chey Menjivar) with premature coronary artery disease status-post CABG (in 1992 at [facility] at the age of 37; known occluded SVG to diagonal), subsequent coronary stenting (2006; on chronic aspirin/Plavix),
ischemic cardiomyopathy (previous LVEF 40-45%, now recovered), hypertension, hyperlipidemia, prediabetes, and former cigarette use (quit 05/2021), presented with a chief complaint of chest pain.
IMPRESSION/PLAN:
CAD
-CABG 1992 (age 37) & PCI 2006
-[facility] 10/2022: attempted wiring of the LAD (75% mid LAD and 90% apical LAD stenosis), aborted secondary to severe tortuosity and pleating of the SIFUENTES graft, films reviewed by interventional cardiology at admission
-Patient with refractory angina; poor candidate for any cardiac interventions.
-Cardiac enzymes and EKGs stable.
-Maximize anti-anginals, this is limited by BP.
-Continue Aspirin/Plavix; supportive care/conservative management.
-Will decrease Toprol-XL from 75 mg to 50 mg daily to allow blood pressure room for Imdur 30 mg daily.
-Continue Ranexa 500 mg BID.
ICM, HFpEF (recovered EF)
-Echocardiogram this admission with LVEF of 65-70%, mild to moderate aortic regurgitation.
-He is followed by Dr. Chey Menjivar at [facility] for advanced heart failure management; would not be a candidate for heart transplantation.
-Not grossly volume overloaded on examination; will decrease torsemide to 20 mg daily to rule out more blood pressure room for other cardiac medications.
Syncope, inpatient 12/03/23
-Believed to be in the setting of orthostatic hypotension, medications decreased
Abdominal pain, per primary
HLD, on rosuvastatin
S/P SMA stent, continue aspirin/Plavix.
UDS positive for methamphetamines last month, denies drug use.
Disposition: Recommend Palliative Care/Hospice consultation.
SUBJECTIVE:
Patient with some hemoptysis this a.m. Still with intermittent chest pain.
Physical Exam
Vital Signs/Labs
Vital Signs
Temp Pulse Resp BP Pulse Ox
98.2 F 55 18 96/56 97
12/08/23 07:00 12/08/23 08:26 12/08/23 07:00 12/08/23 08:26 12/08/23 08:34
12/07/23 12/08/23 12/09/23
06:59 06:59 06:59
Actual Weight 82.372 kg
12/07/23 06:58
12/07/23 06:58
Magnesium 2.0 mg/dl (1.6-2.3) 12/06/23 08:57
12/01/23 12/06/23
09:37 08:57
Pwa-A-Jiltwhxkufl Pept 658 1330
LAB Results
12/07/23
10:17
Troponin I < 0.012
Physical Exam
Constitutional: No acute distress and Comfortable
EENT: Anicteric
Cardiovascular: Rhythm & rate is regular, Pedal edema is absent, Systolic murmur present (soft 2/6) and S1S2 is normal
Respiratory: Respiratory effort normal and Rhonchi Present (Mild bibasilar)
GI: Soft
Neuro/Psych: AO x 3
Other: Skin (Warm, dry, intact)
Data Reviewed
-
Date of Service: December 08, 2023
EKG: Tracing Personally Visualized and interpreted (Telemetry: Sinus rhythm, rare PVCs)
Medical Tests (PFT, Pathology etc): Discussed with Physician and Discussed with Nurse
Labs: Labs Reviewed by me
--- NOTE | 2023-12-08 10:37 | W.PN.HOSP.TC ---
Addendum entered and electronically signed by Leonardo Gregg MD 12/24/23 15:03:
Chronic euvolemic hyponatremia noted.
Addendum entered and electronically signed by Leonardo Gregg MD 12/08/23 14:29:
Patient seen and examined bedside discussed with resident
Discussed with cardiology
Impression/plan
Complex CAD with persistent chest pain
As described before limited options for revascularization
Plan is to attempt adjusting antianginal regimen with addition of Ranexa. Continue Toprol at reduced dose and Imdur.
Chronic CHF preserved EF.
Dose of torsemide been reduced given relatively decreased oral intake and compensated volume status as well as soft BP.
Mesenteric ischemia with SMA stent in place
Diet has been advanced with patient still complain of mostly postprandial abdominal discomfort.
Difficult situation, although given advanced and complex CAD with limited options to treat plan is to refer to outpatient palliative service with eventually hospice consideration.
Epistaxis
Self-limited episode.
Stable hemoglobin
Monitor closely over the next 24 hours while on antiplatelets
Increase activity prior to discharge
Original Note:
Today's Communication/Plan
-
Monitor for Bleeding/Epistaxis as patient is on Plavix.
Toprol XR decrease from 75 mg to 50 mg QD
Continue Ranexa
Set up for Palliative care service.
D/C home tomorrow with visiting nurse and palliative care services.
Assessment / Plan
Assessment / Plan
IMPRESSION:
Chest pain
Mild epigastric pain.
Orthostatic hypotension secondary to low volume/overdiuresis
Conditions prior to admission:
CAD status post CABG 1992/PCI 2006.
Ischemic cardiomyopathy with recovered LVEF.
Essential hypertension
Dyslipidemia
Recent hospitalization with melena and postprandial abdominal pain.
� Unremarkable EGD and colonoscopy.
Mesenteric ischemia status post SMA stent.
Toxicology positive for methamphetamines, patient denies use
PLAN:
Complains of pleuritic chest/epigastric pain
Patient with history of complex CAD status post CABG with limited options for revascularization.
Currently with negative cardiac markers as well as ECG showed no ischemia
Discussed with cardiology
Will be initiated on Ranexa
Continue beta-blockers at reduced dose for bradycardia.� Continue Imdur.� Avoid hypotension
CAD status post CABG 1992.
Cardiac enzymes and EKGs stable.
Continue Aspirin/Plavix; supportive care/conservative management.
Decrease Toprol-XL from 75 mg to 50 mg daily to allow blood pressure room for Imdur 30 mg daily.
Continue Ranexa 500 mg BID.
Ischemic cardiomyopathy with recovered EF.
Chronic CHF preserved EF.
Volume status compensated likely mildly dehydrated and improved with IV fluid bolus last week.
Torsemide resumed at the lower dose.
Orthostatic hypotension secondary to low volume/overdiuresis
in the setting of orthostatic hypotension, medications decreased
Mesenteric ischemia status post SMA stent.
CTA with patent stent in place.
Vascular surgery input appreciated
Continue Plavix
Recent evaluation for gastrointestinal hemorrhage/melena with unremarkable EGD and colonoscopy.
Continue PPI
States of blood in stool-stop hep. Hgb stable. Hemetest. Recent EGD/Colon
Recent toxicology positive for methamphetamine.
Patient denies any illicit substances administration.
Full code.
DVT prophylaxis with heparin
Anticipated Discharge: 24 - 48 hours
Subjective/Interval History
-
Discussed with patient at bedside. Patient reports one episode of productive cough with blood tinged sputum. happened on one occasion overnight. Experienced Epistaxis for one hour overnight. Patient reports abdominal pain and intermittent chest
pain still present at this time. Intensity of pain still the same as yesterday.
Objective Data
-
Vital Signs:
Vital Signs
Temp Pulse Resp BP Pulse Ox
98.2 F 55 18 96/56 97
12/08/23 07:00 12/08/23 08:26 12/08/23 07:00 12/08/23 08:26 12/08/23 08:34
I&O
12/07/23 12/08/23 12/09/23
06:59 06:59 06:59
Intake Total 1300 / 1300 1740 / 1740
Output Total 3300 / 3300 2945 / 2945
Balance -2000 / -2000 -1205 / -1205
Review of Systems
-
History Source: Patient
Respiratory: Reports Cough
Cardiac: Reports Chest Pain
Abdomen/GI: Reports Abdominal Pain
Musculoskeletal: Reports No Symptoms
Physical Exam
-
General: Well Developed
HEENT: Anicteric
Respiratory: Clear to Auscultation; Negative Wheezes
Cardiac: Regular Rhythm and S1/S2
GI: Soft, Nondistended and Tender
Musculoskeletal: No Clubbing, No Cyanosis and No Edema
Neuro: Awake, Alert, Oriented and AO x 3
Psych: Calm
[2023-12-08] MEDS: CRESTOR 20 MG PO (17:11)
[2023-12-08] MEDS: ASPIR LOW (ENTERIC COATED) 81 MG PO (17:11)
[2023-12-08] MEDS: PLAVIX 75 MG PO (17:11)
[2023-12-09] MEDS: TYLENOL PO (05:57)
[2023-12-09 06:00] VITALS: BMI 27.3
[2023-12-09 07:00] VITALS: BP 104/50
[2023-12-09] MEDS: PROTONIX 40 MG PO (08:35)
[2023-12-09] MEDS: CARAFATE 1 GRAM PO ×2 (08:35→12:11)
[2023-12-09] MEDS: MAG-TAB SR 84 MG PO (08:35)
[2023-12-09] MEDS: TOPROL XL 50 MG PO (08:35)
[2023-12-09] MEDS: RANEXA EXTENDED RELEASE 500 MG PO (08:35)
[2023-12-09] MEDS: COLACE 100 MG PO (08:35)
[2023-12-09] MEDS: KCL 10 MEQ PO ×2 (08:36→12:11)
[2023-12-09] MEDS: IMDUR (EXTENDED RELEASE) 30 MG PO (08:37)
[2023-12-09] MEDS: IMDUR (EXTENDED RELEASE) PO (08:37)
[2023-12-09] MEDS: MIRALAX PO (08:37)
[2023-12-09] MEDS: DEMADEX 20 MG PO (08:39)
--- NOTE | 2023-12-09 10:04 | W.PN.CD ---
Today's Communication / Plan
-
-Denies any recurrent hemoptysis or chest pain; primarily complains of abdominal pain, worse postprandially.
-Patient's refractory angina appears to be improved with Ranexa.
-Continue Aspirin/Plavix.
-Continue Toprol-XL 50 mg daily.
-Continue Ranexa 500 mg BID.
-Compensated on examination (currently with decreased PO intake); continue torsemide to 20 mg daily.
-He is followed by Dr. Chey Menjivar at [facility] for advanced heart failure management; scheduled to follow-up there in December.
-No further cardiac recommendations at this time; outpatient follow-up with Cardiology.
Impression / Plan
-
BACKGROUND: �68M (known to Dr. Langford & Dr. Chey Menjivar) with premature coronary artery disease status-post CABG (in 1992 at [facility] at the age of 37; known occluded SVG to diagonal), subsequent coronary stenting (2006; on chronic aspirin/Plavix),
ischemic cardiomyopathy (previous LVEF 40-45%, now recovered), hypertension, hyperlipidemia, prediabetes, and former cigarette use (quit 05/2021), presented with a chief complaint of chest pain.
IMPRESSION/PLAN:
CAD
-CABG 1992 (age 37) & PCI 2006
-[facility] 10/2022: attempted wiring of the LAD (75% mid LAD and 90% apical LAD stenosis), aborted secondary to severe tortuosity and pleating of the SIFUENTES graft, films reviewed by interventional cardiology at admission
-Patient's refractory angina appears to be improved with Ranexa; Primarily complaining of abdominal pain at this point, which is worse with eating.
-Cardiac enzymes and EKGs stable.
-Maximize anti-anginals, this is limited by BP.
-Continue Aspirin/Plavix.
-Continue Toprol-XL 50 mg daily.
-Continue Ranexa 500 mg BID.
ICM, HFpEF (recovered EF)
-Echocardiogram this admission with LVEF of 65-70%, mild to moderate aortic regurgitation.
-He is followed by Dr. Chey Menjivra at [facility] for advanced heart failure management; scheduled to follow-up there in December.
-Compensated on examination (currently with decreased PO intake); continue torsemide to 20 mg daily.
Syncope, inpatient 12/03/23
-Believed to be in the setting of orthostatic hypotension, medications decreased
Abdominal pain, per primary
HLD, on rosuvastatin
S/P SMA stent, continue aspirin/Plavix.
UDS positive for methamphetamines last month, denies drug use.
SUBJECTIVE:
No major events overnight. Denies any recurrent hemoptysis or chest pain. Primarily complains of abdominal pain, worse postprandially.
Physical Exam
Vital Signs/Labs
Vital Signs
Temp Pulse Resp BP Pulse Ox
98.2 F 61 18 104/50 95
12/09/23 07:00 12/09/23 08:39 12/09/23 07:00 12/09/23 08:39 12/09/23 08:49
12/08/23 12/09/23 12/10/23
06:59 06:59 06:59
Actual Weight 82.372 kg 83.659 kg
12/07/23 06:58
12/07/23 06:58
Magnesium 2.0 mg/dl (1.6-2.3) 12/06/23 08:57
12/01/23 12/06/23
09:37 08:57
Ipx-X-Qghoixhupls Pept 658 1330
LAB Results
12/07/23
10:17
Troponin I < 0.012
Physical Exam
Constitutional: No acute distress and Comfortable
EENT: Anicteric
Cardiovascular: Rhythm & rate is regular, Pedal edema is absent, Systolic murmur absent and S1S2 is normal
Respiratory: Respiratory effort normal and Lungs clear to auscul.
GI: Soft
Other: Skin (Warm, dry, intact)
Data Reviewed
-
Date of Service: December 09, 2023
Medical Tests (PFT, Pathology etc): Discussed with Patient
Labs: Labs Reviewed by me
--- NOTE | 2023-12-09 10:33 | W.PN.HOSP.TC ---
Addendum entered and electronically signed by Leonardo Gregg MD 12/09/23 14:44:
I did call patient today to follow-up making sure that medication is over the wrist.. Patient confirmed
Addendum entered and electronically signed by Leonardo Gregg MD 12/09/23 14:41:
Progesterone was in the preadmission medication list.
Patient was unclear while questioning reasoning for progesterone therapy
Progesterone has been discontinued upon admission and removed from discharge medication list
.
Addendum entered and electronically signed by Leonardo Gregg MD 12/09/23 14:31:
Patient seen and examined
Discussed with resident
Complex CAD with anginal pain
Reports chest pain-free over the last 48 hours since initiation of Ranexa
Continue Plavix, Toprol at reduced dose and Imdur
Volume status compensated. Reinstated torsemide at reduced dose
Referred to palliative service consult as outpatient
Self-limited episode of epistaxis
Original Note:
Today's Communication/Plan
-
D/C home with Palliative care services
Outpatient PT/OT
Continue Ranexa
Assessment / Plan
Assessment / Plan
IMPRESSION:
Chest pain
Mild epigastric pain.
Orthostatic hypotension secondary to low volume/overdiuresis
Conditions prior to admission:
CAD status post CABG 1992/PCI 2006.
Ischemic cardiomyopathy with recovered LVEF.
Essential hypertension
Dyslipidemia
Recent hospitalization with melena and postprandial abdominal pain.
� Unremarkable EGD and colonoscopy.
Mesenteric ischemia status post SMA stent.
Toxicology positive for methamphetamines, patient denies use
PLAN:
Complains of pleuritic chest/epigastric pain
Patient with history of complex CAD status post CABG with limited options for revascularization.
Currently with negative cardiac markers as well as ECG showed no ischemia
Discussed with cardiology
Will be initiated on Ranexa
Continue beta-blockers at reduced dose for bradycardia.� Continue Imdur.� Avoid hypotension
Mesenteric ischemia with SMA stent in place
Diet has been advanced with patient still complain of mostly postprandial abdominal discomfort.
CAD status post CABG 1992.
Cardiac enzymes and EKGs stable.
Continue Aspirin/Plavix; supportive care/conservative management.
Decrease Toprol-XL from 75 mg to 50 mg daily to allow blood pressure room for Imdur 30 mg daily.
Continue Ranexa 500 mg BID.
Ischemic cardiomyopathy with recovered EF.
Chronic CHF preserved EF.
Volume status compensated likely mildly dehydrated and improved with IV fluid bolus last week.
Torsemide resumed at the lower dose.
Orthostatic hypotension secondary to low volume/overdiuresis
in the setting of orthostatic hypotension, medications decreased
Mesenteric ischemia status post SMA stent.
CTA with patent stent in place.
Vascular surgery input appreciated
Continue Plavix
Recent evaluation for gastrointestinal hemorrhage/melena with unremarkable EGD and colonoscopy.
Continue PPI
States of blood in stool-stop hep. Hgb stable. Hemetest. Recent EGD/Colon
Recent toxicology positive for methamphetamine.
Patient denies any illicit substances administration.
Full code.
DVT prophylaxis with heparin
Anticipated Discharge: 24 - 48 hours
Subjective/Interval History
-
Patient denies recurrent episode of Hemoptysis. Reports chest pain resolved. Complains of generalized Abdominal pain worse after meals. Pain 8/10.
Objective Data
-
Vital Signs:
Vital Signs
Temp Pulse Resp BP Pulse Ox
98.2 F 61 18 104/50 95
12/09/23 07:00 12/09/23 08:39 12/09/23 07:00 12/09/23 08:39 12/09/23 08:49
I&O
12/08/23 12/09/23 12/10/23
06:59 06:59 06:59
Intake Total 1740 / 1740 1080 / 1080
Output Total 2945 / 2945 475 / 475
Balance -1205 / -1205 605 / 605
Review of Systems
-
All other systems: Reviewed and negative (except as documented)
Abdomen/GI: Reports Abdominal Pain
Physical Exam
-
General: Well Developed
HEENT: Anicteric
Respiratory: Clear to Auscultation; Negative Wheezes
Cardiac: Regular Rhythm and S1/S2
GI: Soft, Nondistended and Tender
Musculoskeletal: No Clubbing, No Cyanosis and No Edema
Neuro: Awake, Alert, Oriented and AO x 3
Psych: Calm
--- NOTE | 2023-12-09 11:03 | CM ---
CM reviewed pt with Dr Gregg and pt likely ready for dc today
Bedside meeting with pt to review dc planning
VN vs SNF recommended- pt declined noth
He would like to attend outpatient therapy at the [facility]
He is in agreement with referral to Palliative for info only at this time
IMM verbally reviewed- copy provided
Script requested for outpatient therapy
Referral to palliative via [facility]
Discharge Disposition- home with outpatient therapy and palliatove care- SO will transport home
[2023-12-09] MEDS: TYLENOL 1000 MG PO (12:11)
--- NOTE | 2023-12-09 12:38 | W.DCSUMMARY ---
Documented by User: Jhon Forte MD, Resident 12/09/23 13:05
Discharge Summary
Discharge Data
Date of Admission: 12/03/23
Date of Discharge: 12/09/23
-
Pending Results: No
Hospital Course
DISCHARGE DIAGNOSIS:
1. Complex CAD with persistent chest pain
2. Chronic CHF preserved EF
3. Mesenteric ischemia with SMA stent in place
BRIEF HOSPITAL COURSE: This is a 68 year-old male with coronary artery disease, ischemic cardiomyopathy, hypertension, dyslipidemia, recent hospitalization with gastrointestinal hemorrhage/melena where patient was found to have mesenteric ischemia
and underwent SMA stent placement, presents to ED with acute onset of a sharp mid chest pain with no radiation. Pain was not relieved with sublingual nitroglycerin. �Pain occurred early in the morning before meals. He also reports mild epigastric
pain. Patient denies Nausea, vomiting. Patient was Hemodynamically stable on presentation. Further workup with CT showed patent SMA stent. ECG and initial troponin level not evident for ischemic changes. Evaluation with Echocardiogram revealed LVEF
of 65-70%, mild to moderate aortic regurgitation. Evaluation with a CTA of the chest, abdomen and pelvis showed no aortic aneurysm or dissection. At his previous hospitalization, patient had evaluation for gastrointestinal hemorrhage/melena with
unremarkable EGD and colonoscopy. Cardiology was consulted and patient was started on Ranexa, continued on Aspirin/Plavix for supportive care/conservative management, continued on Imdur, Metoprolol and statin. During his hospital stay, patient
experienced an episode of syncope secondary to orthostatic hypotension, and his medications were decreased. Given his history of complex CAD status post CABG with limited options for revascularization, plan remained to adjust his antianginal
regimen with continuation of Ranexa, and refer to�outpatient palliative service with eventually hospice consideration. Patient will also be followed up by cardiology outpatient, and outpatient Physical therapy/Occupational therapy.
Regarding his Mesenteric ischemia with SMA stent in place, His Diet was advanced, but still complained of mostly postprandial abdominal discomfort.
On the day of discharge, Temperature 98.2, BP 104/54 Pulse: 61, O2 Sat 95% on room air.
Physical examination: Patient is awake, comfortable, in no acute distress. Rhythm and rate is regular. Lungs are clear to auscultation. Abdomen soft, non distended but tender on palpation. Extremities show no peripheral edema.
Discharge Plan
-
Patient Disposition: Home (Routine Discharge)
Discharge Diagnosis/Procedures: Complex Coronary Artery Disease with persistent chest pain
Mesenteric ischemia with SMA stent in place
Condition: Fair
Diet: As tolerated
Activity: No strenuous activity
Other Services: PT and OT
Referrals:
Bruna Lara CRNP [Specified Professional Personl] - 12/23/23 1:40 pm
Alida Hendricks MD [Family Provider] - in three to four weeks
Additional Discharge Medication Instructions: Continue Aspirin/Plavix.
Continue Toprol-XL 50 mg daily.
Continue Ranexa 500 mg BID.
continue torsemide to 20 mg daily
Prescriptions:
New
torsemide 20 mg Tablet
20 mg PO DAILY Qty: 60 0RF
metoprolol succinate 50 mg Tablet Extended Release 24 Hr
50 mg PO DAILY Qty: 60 0RF
isosorbide mononitrate 30 mg Tablet Extended Release 24 Hr
30 mg PO DAILY Qty: 60 0RF
ranolazine 500 mg Tablet Extended Release 12 Hr
500 mg PO BID Qty: 60 0RF
Continued
aspirin 81 MG tablet,delayed release (DR/EC)
81 mg PO DAILY
magnesium oxide 200 mg magnesium Tablet
200 mg PO TID
potassium chloride 10 mEq Tablet Extended Release
10 meq PO BID@0800,1300
clopidogrel 75 MG tablet
75 mg PO QPM
rosuvastatin 20 MG tablet
20 mg PO QPM
acetaminophen [Tylenol Extra Strength] 500 mg Tablet
1,000 mg PO DAILYPRN PRN (Reason: mild pain)
progesterone micronized 100 mg Capsule
100 mg PO HS
pantoprazole 40 mg tablet,delayed release (DR/EC)
40 mg PO DAILY
Discontinued
isosorbide mononitrate 30 mg Tablet Extended Release 24 Hr
30 mg PO DAILY
nitroglycerin 0.4 mg Tablet, Sublingual
0.4 mg SUBLINGUAL [id number] PRN (Reason: chest pain)
Patient Comments:
12/01/2023, per pt., he took 2 tablets yesterday (11/30/2023).
torsemide 20 mg tablet
40 mg PO BID@0900,1400
metoprolol succinate 100 mg tablet extended release 24 hr
100 mg PO QPM
Discharge Orders:
Discharge Patient (As Directed); Ordered 12/09/23
Ordered By: Jhon Forte
Discharge Date and Time
Discharge Date/Time: 12/09/23 14:15

Documented by User: Leonardo Gregg MD 12/09/23 14:18
Discharge Summary
Discharge Data
Date of Admission: 12/03/23
Date of Discharge: 12/09/23
Discharge Plan
-
Patient Disposition: Home (Routine Discharge)
Discharge Diagnosis/Procedures: Complex Coronary Artery Disease with persistent chest pain
Mesenteric ischemia with SMA stent in place
Condition: Fair
Diet: As tolerated
Activity: No strenuous activity
Other Services: PT and OT
Referrals:
Bruna Lara CRNP [Specified Professional Personl] - 12/23/23 1:40 pm
Alida Hendricks MD [Family Provider] - in three to four weeks
Additional Discharge Medication Instructions: Continue Aspirin/Plavix.
Continue Toprol-XL 50 mg daily.
Continue Ranexa 500 mg BID.
continue torsemide to 20 mg daily
Prescriptions:
New
torsemide 20 mg Tablet
20 mg PO DAILY Qty: 60 0RF
metoprolol succinate 50 mg Tablet Extended Release 24 Hr
50 mg PO DAILY Qty: 60 0RF
isosorbide mononitrate 30 mg Tablet Extended Release 24 Hr
30 mg PO DAILY Qty: 60 0RF
ranolazine 500 mg Tablet Extended Release 12 Hr
500 mg PO BID Qty: 60 0RF
Continued
aspirin 81 MG tablet,delayed release (DR/EC)
81 mg PO DAILY
magnesium oxide 200 mg magnesium Tablet
200 mg PO TID
potassium chloride 10 mEq Tablet Extended Release
10 meq PO BID@0800,1300
clopidogrel 75 MG tablet
75 mg PO QPM
rosuvastatin 20 MG tablet
20 mg PO QPM
acetaminophen [Tylenol Extra Strength] 500 mg Tablet
1,000 mg PO DAILYPRN PRN (Reason: mild pain)
progesterone micronized 100 mg Capsule
100 mg PO HS
pantoprazole 40 mg tablet,delayed release (DR/EC)
40 mg PO DAILY
Discontinued
isosorbide mononitrate 30 mg Tablet Extended Release 24 Hr
30 mg PO DAILY
nitroglycerin 0.4 mg Tablet, Sublingual
0.4 mg SUBLINGUAL [id number] PRN (Reason: chest pain)
Patient Comments:
12/01/2023, per pt., he took 2 tablets yesterday (11/30/2023).
torsemide 20 mg tablet
40 mg PO BID@0900,1400
metoprolol succinate 100 mg tablet extended release 24 hr
100 mg PO QPM
Discharge Orders:
Discharge Patient (As Directed); Ordered 12/09/23
Ordered By: Jhon Forte
Discharge Date and Time
Discharge Date/Time: 12/09/23 14:15
== END 2023-12-09 14:15 | disposition home or self-care (01) | DRG 303 ==
LOC: 4 EAST ACU 13:40
PROVIDERS: Hospitalist; Nurse Practitioner Family; Nurse Practitioner Gerontology; ADMITTING PHYSICIAN Internal Medicine; CONSULT PHYSICIAN Internal Medicine Cardiovascular Disease; EMERGENCY PHYSICIAN Student in an Organized Health Care Education/Training Program; FAMILY PHYSICIAN Internal Medicine; OTHER PHYSICIAN Surgery Vascular Surgery
DX: I25.79 Atherosclerosis of other coronary artery bypass graft(s) with angina pectoris (principal); K55.9 Vascular disorder of intestine, unspecified; I50.32 Chronic diastolic (congestive) heart failure; I25.112 Atherosclerotic heart disease of native coronary artery with refractory angina pectoris; E78.00 Pure hypercholesterolemia, unspecified; I11.0 Hypertensive heart disease with heart failure; R73.03 Prediabetes; W18.30XA Fall on same level, unspecified, initial encounter; Y93.89 Activity, other specified; Y92.231 Patient bathroom in hospital as the place of occurrence of the external cause; M94.0 Chondrocostal junction syndrome [Tietze]; R51.9 Headache, unspecified; I35.1 Nonrheumatic aortic (valve) insufficiency; I95.1 Orthostatic hypotension; F15.90 Other stimulant use, unspecified, uncomplicated; I25.5 Ischemic cardiomyopathy; F17.200 Nicotine dependence, unspecified, uncomplicated; Z79.82 Long term (current) use of aspirin; Z11.52 Encounter for screening for COVID-19; Z79.02 Long term (current) use of antithrombotics/antiplatelets; Z95.5 Presence of coronary angioplasty implant and graft
CPT/HCPCS: 70450; 70486; 70551; 71045; 71275; 73030; 74174; 80048; 80053; 82962; 83605; 83690; 83735; 83880; 84484; 85025; 85379; 87502; 87811; 93005; 93306; 97116; 97163; 97166; 97530; 99285; Q9967

== ENCOUNTER 2024-04-26 16:38 | Inpatient (IN) | payer MEDICARE, SELFPAY ==
[2024-04-26] VITALS (22 sets, daily range): BP systolic 85–134; BP diastolic 53–85; BMI 28.3
--- NOTE | 2024-04-26 12:49 | ED.GENMED ---
History of Present Illness
General
Chief Complaint: Chest Pain
Source: patient
Exam Limitations: none
Time Seen by Provider: 04/26/24 12:47
Nursing documentation reviewed up to this point in time: agreed with
History of Present Illness
History of Present Illness:
68-year-old male with history of cardiomyopathy, CAD, HTN, HLD, CT, cardiac stent 2010, on chronic aspirin and Plavix. Is
Pt states he was to have a colonoscopy by GI Dr. Cristobal in February but it was cancelled due to his cardiac problems.
Now he's scheduled for cardiac cath at [facility] tomorrow but his pre procedure blood work came back with Hbg 9.0 so his director business intelligence want him cleared GI murphy prior to cath.
Pt presents stating he has had rectal bleeding since October, states it resolved for about a month after the mesenteric artery stent in Oct but then continued with intermittent blood mixed with stools and black stools. States rectal bleeding has
gotten worse over the last 2 weeks and yesterday saw red in the toilet after BM
He has ongoing chest pain and SOB , nothing new
He took 2 nitro last night with little relief of the chest pain but states 'it always comes back.' He states he's gone through '4 1/2 bottles of nitro in the past 2 months.'
He states he has generalized abdominal pain 'sharp' for past 10 days. States he had a normal BM this a.m. and saw 'a little red in the water. '
States appetite has been good.
Past History
Past History
ED Past Medical History: CAD, HTN and Hypercholesterolemia
ED Past Surgical History: Cardiac (According to PCP notes, patient had C 10/2022, attempted wiring of the LAD (75% mid LAD and 90% apical LAD stenosis), aborted secondary to severe tortuosity and bleeding of the SIFUENTES graft, on medical therapy.,
Echo o 11/2023 with LV EF of 65 to 70% mild to moderate aortic regurg. ), Orthopedic and Other (Hernia repair. Refractory angina on Renexa)
Social History
Tobacco: Smoker
Alcohol: Occasional
Drug: None
Review of Systems
Review of Systems
Allergies reviewed?: Yes
All Other Systems: ROS reviewed and negative except as documented in HPI and ROS
Constitutional: Denies fever
Respiratory: Denies trouble breathing
Cardiac: Reports chest pain; Denies diaphoresis, palpitations or syncope
ABD/GI: Reports abdominal pain (intermittent, sharp, none now.) and bloody stools; Denies nausea, vomiting, diarrhea, constipated or anorexia
: Denies dysuria or difficulty voiding
Musculoskeletal: Reports no symptoms
Skin: Reports no symptoms
Neurological: Reports no symptoms
Phy Exam
Physical Exam
Physical Exam:
GENERAL: No acute distress. A&Ox3.
CONSTITUTIONAL: Afebrile.
EYES: PERRL, conjunctivae normal
Neck: Supple
ENMT: moist mucus membranes, Pharynx nl
RESPIRATORY: Regular respirations, nonlabored, lungs clear.
CARDIOVASCULAR: Regular rate and rhythm, no murmurs, no rubs.
GI: Soft, mildly tender generally to palpation, normal BS
Rectal: no stool in rectal vault, mucus on gloved finger heme neg.
MUSCULOSKELETAL: Moves with ease. Well perfused. +1 pitting edema bilateral LEs (chronic)
SKIN: Warm, dry, pink
PSYCH: Normal mood and affect. Well kept, interactive and appropriate
NEUROLOGIC: Awake, alert and oriented. No focal neurological deficits
Scores
Heart Score for Chest Pain Patients
STEMI patient?: No
History: Moderately Suspicious
ECG: Normal
Age: >/= 65 years
Risk Factors: >/= 3 Risk Factors or History of CAD
Troponin: </= Normal Limit
Heart Score for Chest Pain Patients: 5
Heart Score Risk: 20.3% MACE over next 6 weeks
Course
Orders/Labs/Results
Orders:
Orders
04/26/24 12:39
Electrocardiogram (*1) Urgent
Reason for Study: Chest Pain
EKG- Treatment ONCE
04/26/24 12:56
Type+Screen Urgent
Complete Blood Count/With Diff Urgent
Comprehensive Metabolic Panel Urgent
Lipase Urgent
Comment: ADD ON
PT/INR [Prothrombin Time] Urgent
04/26/24 12:57
Troponin I Urgent
04/26/24 14:29
Nitroglycerin Sublingual [Nitrostat (Sublingual)] 0.4 mg SL NOW STA
Nitroglycerin Sublingual [Nitrostat (Sublingual)] 0.4 mg SL NOW STA
04/26/24 14:30
Nitroglycerin 100 mg/250 ml [Nitroglycerin Premix] 100 mg in 250 ml IV PER PROTOCOL
Initial dose in mcg/min, then titrate:: 5
Titrate to keep:: Chest Pain Free
Titrate by mcg/min:: 5 mcg/min, may increase by 10 mcg/min if dose > 20 mcg/min
Frequency of titrations (minutes):: every 3-5 minutes
Maximum dose in mcg/min:: 200
Begin to taper infusion when:: Remained at goal for 2hrs
Taper by mcg/min:: 5 mcg/min
Frequency of taper (minutes) if patient maintains goal:: 30
Taper to off?: Yes
If infusion off & no longer maintaining goal:: Contact Provider
04/26/24 14:38
EKG [Electrocardiogram (*1)] Urgent
Reason for Study: Chest Pain
04/26/24 14:47
CARDIOLOGY CONSULT Urgent
Consulting Provider: Dewayne Cortez
Was physician already notified: Yes
Reason for consult: CP, Poss GI bleed
04/26/24 15:14
Heparin 1000 Units/500 ml [Heparin] 1,000 units in 500 ml .ROUTE .STK-MED
Heparin Sodium,Porcine/Ns/Pf [Heparin 2000 Units/1000 ml] 2,000 unit in 1,000 ml .ROUTE .STK-MED
Lidocaine HCl/Pf [Xylocaine-Mpf 1% Vial] 100 mg .ROUTE .STK-MED ONE
04/26/24 15:16
Nitroglycerin [Tridil] 1,500 mcg .ROUTE .STK-MED ONE
04/26/24 15:25
Drug Screen, Urine [Urine Drug Abuse Screen] Urgent
Date Specimen was Collected: 04/26/24
Time Specimen was Collected: 14:59
Fentanyl Citrate/Pf [Sublimaze] 100 mcg .ROUTE .STK-MED ONE
Heparin 10,000 units .ROUTE .STK-MED ONE
Midazolam HCl [Versed] 2 mg .ROUTE .STK-MED ONE
04/26/24 16:08
Admit/Transfer Patient As Directed
Co-Sign Provider:
Level of Care: Inpatient admission
Assign to:: IVU
Physician / Group: Dr. Lomax
Diagnosis: Unstable angina
Reason for Hospitalization: Unstable angina
Expected length of stay greater than two midnights?: Yes
ELOS- Estimated Length of Stay in days: 3
I certify the patient meets the requirements for IP care: Yes
PRN Pain Medication Management As Directed
May give lesser potent ordered pain med per pt: Yes
preference::
Protocol:: Medication orders for pain may be administered in a
manner that supports deferring to patient preference
when the pt is:
- Requesting an ordered lesser potent pain medication.
Least to most potent pain medications are defined
as: acetaminophen < NSAID < tramadol < opioids
(morphine, oxycodone, hydromorphone).
- Requesting a lesser dose of the same medication IF
ORDERED.
- Requesting a less intrusive route of administration
if both routes are prescribed by the provider (PO <
IV).
04/26/24 16:12
Code Status As Directed
Resuscitation Status: Full Code
04/26/24 16:19
Activity As Directed
Activity Level: Bedrest
Comment: refer to hemostasis device used for bedrest duration, then ambulate ad amber
Rail Track Maintainer Procedure As Directed
Cardiac Cath Procedure: cardiac catheterization
Femoral Artery Hemostasis Method As Directed
Procedure performed:: Cardiac Catheterization
Type of femoral hemostasis method used:: Internal Closure Device
Duration of bedrest (hours):: 3
Call provider if:: hematoma present after hemostasis achieved
Head of Bed-Restrictions As Directed
Comment: may elevate head of bed 30 degrees
Notify MD As Directed
Notify physician if: immediately for chest pain or bleeding from access site(s)
Site Checks As Directed
Check access site for bleeding/hematoma: Yes
Comment: on arrival, Q15min x4, Q30min x2, Q1 hr x2, Q2 hr x2, Q4 hr or per
protocol
Vascular Checks As Directed
Location: distal to access site - pulse check
Frequency: Other
Comment: on arrival, Q15min x4, Q30min x2, Q1 hr x2, Q2 hr x2, Q4 hr or per protocol
Vital Signs As Directed
Frequency: Other
Additional Instructions:: on arrival, Q15min x4, Q30min x2, Q1 hr x2, Q2 hr x2, then Q4 hr or per unit
protocol
04/26/24 16:30
0.9% Sodium Chloride 1000 ml [Nss] 1,000 ml IV PER PROTOCOL
Infusion rate in mL/kg/hr:: 1.5
Infusion rate in mL/hr:: 131
Duration of infusion (hours):: 3
04/26/24 16:44
Activity As Directed
Activity Level: As Tolerated
Hemetest Stools As Directed
I&O [Intake/ Output] As Directed
Frequency: q12h
Notify MD As Directed
Notify physician if: Unstable vitals, new complaints
Sequential Compression Device [Pneumatic Compression Sleeves] As Directed
Type: Knee high
Ot Eval And Treat Routine
Pt Eval And Treat Routine
Activity Level: As Tolerated
DX Deep Vein Thrombosis Video Routine
04/26/24 17:00
Torsemide [Demadex] 60 mg PO BID AT 0800,1600
04/26/24 18:00
Clopidogrel Bisulfate [Plavix] 75 mg PO QPM
Rosuvastatin Calcium [Crestor] 20 mg PO QPM
04/26/24 22:00
Magnesium l-Lactate [Mag-Tab Sr] 84 mg PO TID
04/27/24 04:03
Complete Blood Count/With Diff IN AM
Comprehensive Metabolic Panel IN AM
Ferritin IN AM
Folate IN AM
Iron IN AM
NT-proBNP IN AM
TSH Reflex To Free T4 IN AM
Total Iron Binding IN AM
Vitamin B12 IN AM
04/27/24 08:00
Aspirin Low Dose EC [Aspir Low (Enteric Coated)] 81 mg PO DAILY
ISOSORBIDE MONOnitrate ER [Imdur (Extended Release)] 60 mg PO DAILY
Metoprolol Xl [Toprol Xl] 50 mg PO DAILY
Pantoprazole [Protonix] 40 mg PO DAILY
Potassium Chloride [KCl] 20 meq PO BID@0800,1300
Abnormal Lab Results
04/26/24
12:56
RBC 3.11 L 10^6/uL
(4.70-6.10)
Hgb 9.7 L g/dL
(13.0-18.0)
Hct 28.7 L %
(39.0-52.0)
MCH 31.2 H pg
(27.0-31.0)
RDW 14.6 H %
(11.5-14.5)
Plt Count 118 L 10^3/uL
(130-400)
MPV 10.5 H fL
(7.4-10.4)
PT 15.7 H Sec
(11.4-14.6)
Glucose 100 H mg/dl
(70-99)
AST 78 H U/L
(17-59)
Alkaline Phosphatase 139 H U/L
(38-126)
Albumin 3.4 L g/dl
(3.5-5.0)
Lipase 367 H U/L
(23-300)
04/26/24 12:56
04/26/24 12:56
Vital Signs
Initial and Last Documented VS:
Initial Vital Signs
Temp Pulse Resp BP Pulse Ox
98.1 F 71 16 104/68 98
04/26/24 12:40 04/26/24 12:40 04/26/24 12:40 04/26/24 12:40 04/26/24 12:40
Last Documented Vital Signs
Temp Pulse Resp BP Pulse Ox
98.4 F 65 16 100/64 97
04/27/24 07:16 04/27/24 07:30 04/27/24 07:16 04/27/24 07:16 04/27/24 07:16
MDM/Problems Addressed
MDM/Problems Addressed:
68-year-old male with history of cardiomyopathy, CAD, HTN, HLD, CT, cardiac stent 2010, on chronic aspirin and Plavix.
Pt states he was to have a colonoscopy by GI Dr. Cristobal in February but it was cancelled due to his cardiac problems.
Now he's scheduled for cardiac cath at [facility] tomorrow but his pre procedure blood work came back with Hbg 9.0 so his director business intelligence want him cleared GI murphy prior to cath.
Pt presents stating he has had rectal bleeding since October, states it resolved for about a month after the mesenteric artery stent in Oct but then continued with intermittent blood mixed with stools and black stools. States rectal bleeding has
gotten worse over the last 2 weeks and yesterday saw red in the toilet after BM
He has ongoing chest pain and SOB , nothing new
He took 2 nitro last night with little relief of the chest pain but states 'it always comes back.' He states he's gone through '4 1/2 bottles of nitro in the past 2 months.'
He states he has generalized abdominal pain 'sharp' for past 10 days. States he had a normal BM this a.m. and saw 'a little red in the water. '
States appetite has been good.
Dr. Edmond Lewis requesting UDS as pt was positive in Oct for meth, which his director business intelligence was not aware.
1:45 p.m.
CBC: Hgb 9.7 his baseline, mildly low platelets, higher than his baseline today.
CMP: no clinically significant abnormality
2:[address] Cortez in. Wants pt admitted to medicine, may take to casting house laborer. Pt told to be NPO. NTG drip ordered, Pt CP now 09/30.
GI consult in
Hospitalist notified of admission
*Pulse Oximetry
Patient hypoxic: no
*EKG
EKG Intrepretation Date: 04/26/24
Interpretation: abnormal
Rhythm: sinus and PAC's
Nelson: normal axis
Interval: normal interval and long QT
QRS Pattern: normal QRS
Ischemia: non-specific ST changes
*Critical Care Note
Total Time (30-74mins, 75-104mins- exclusive of procedures): Not Applicable
ED Attending Note
-
Portions of this chart may have been created with voice recognition software.� Occasional wrong word or��sound alike� substitutions may have occurred due to the inherent limitations of voice recognition software.
Discharge Plan
Departure
Patient Disposition: Admit
Date of Disposition: 04/26/24
Time of Disposition: 14:42
Admit to: IVU
Presentation/result/management discussed w/ accepting MD/DO: Hospitalist
Condition: Fair
Discharge Problem:
Chest pain, reported rectal bleeding
Interventions
Interventions:
*Risk Screen - Suicide Last Done: 04/26/24 12:59
*General Assessment Last Done: 04/26/24 12:59
*Neglect/Abuse Screening Last Done: 04/26/24 12:59
ED- Fall Risk Assessment Last Done: 04/26/24 13:02
*ED COVID-19 Vaccine History Last Done: 04/26/24 12:59
*Nursing Disposition Last Done: 04/26/24 15:40
ED- Cardiac Assessment Last Done: 04/26/24 13:02
Discharge Date and Time
Discharge Date/Time: 04/26/24 15:41
[2024-04-26 13:07] LABS: % Basophils 0.7 % (0-2); % Eosinophils 3.3 % (0-6); % Immature Granulocytes 0.2 % (0-0.5); % Lymphocytes 23.2 % (20.5-51.1); % Monocytes 9.3 % (1.7-9.3); % Neutrophils 63.3 % (42.2-75.2); Absolute Eosinophils 0.2 10^3/uL (0-0.7); Absolute Lymphocytes 1.4 10^3/uL (1.2-3.4); Absolute Monocytes 0.6 10^3/uL (0.1-0.6); Absolute Neutrophils 3.9 10^3/uL (1.4-6.5); Hematocrit 28.7 % (39.0-52.0); Hemoglobin 9.7 g/dL (13.0-18.0); Mean Corp Hgb Conc. 33.8 g/dL (33.0-37.0); Mean Corpuscular Hgb 31.2 pg (27.0-31.0); Mean Corpuscular Volume 92.3 fL (80.0-94.0); Mean Platelet Volume 10.5 fL (7.4-10.4); Nucleated Red Blood Cells % 0 % (-); Platelet Count 118 10^3/uL (130-400); Red Blood Cell Count 3.11 10^6/uL (4.70-6.10); Red Cell Dist. Width 14.6 % (11.5-14.5); White Blood Cell Count 6.1 10^3/uL (4.8-10.8)
[2024-04-26 13:21] LABS: INR 1.27; PT 15.7 Sec (11.4-14.6)
[2024-04-26 13:22] LABS: ALT (SGPT) 32 U/L (0-50); AST (SGOT) 78 U/L (17-59); Albumin 3.4 g/dl (3.5-5.0); Alkaline Phosphatase 139 U/L (38-126); Blood Urea Nitrogen 15 mg/dl (9-20); Calcium 8.9 mg/dl (8.4-10.2); Carbon Dioxide 26 mmol/L (22-30); Chloride 103 mmol/L (98-107); Estimated Creatinine Clearance 80 ml/min; Glucose 100 mg/dl (70-99); Potassium 3.9 mmol/L (3.5-5.1); Sodium 135 mmol/L (135-145); Total Bilirubin 1.2 mg/dl (0.2-1.3); Total Protein 6.8 g/dl (6.3-8.2); eGFR > 60.00
[2024-04-26 13:33] LABS: Troponin I < 0.012 ng/ml
[2024-04-26] MEDS: NITROSTAT (SUBLINGUAL) 0.4 MG SL (14:30)
--- NOTE | 2024-04-26 14:52 | CON.CAR ---
Addendum entered and electronically signed by Dewayne Cortez MD 04/26/24 16:52:
I saw and examined the patient.
The [employer]ING [employer] MATCHER's note was reviewed and I agree with the note.
Comment: 68M premature coronary artery disease status-post CABG (in 1992 at [facility] at the age of 37; known occluded SVG to diagonal), subsequent coronary stenting (2006 & 2020; on chronic aspirin/Plavix), cath in 2022 attempted wiring of the LAD
(75% mid LAD and 90% apical LAD stenosis), aborted secondary to severe tortuosity and pleating of the SIFUENTES graft, ischemic cardiomyopathy (previous LVEF 40-45%, now normalized), hypertension, hyperlipidemia, prediabetes, SMA stent (10/2023), and
former cigarette use (quit 05/2021), presented with a chief complaint of chest pain
He is followed by Cardiologists: Dr. Langford & Dr. Zofia EARLY interventionalists.
Patient was set to undergo cardiac catheterization for an accelerated angina planning tomorrow at [facility] with Dr. Armijo. However, he had complained of bright red blood per rectum so was sent in by GI. I personally spoke to
Dr. Armijo over the phone to add to history and develop plan. Apparently, he has been using more more nitro. He reports has been over the last 2 months. He gets intermittent bright red blood per rectum. Dr. Armijo reports he had a cath
after his catheterization at 0 send in 2022 that looks similar. On exam he is in moderate distress with 8 out of 10 chest pain when I am in the room. 1 sublingual nitroglycerin brought this down to 1 out of 10 chest pain. He has a regular rate
and rhythm with a normal S1-S2 no murmur rubs or gallops were appreciated lungs were clear to auscultation bilaterally laboratory showed a normal troponin. EKG showed sinus rhythm with some T wave flattening in V1 V2. Labs showed hemoglobin of 9.7
prior was 10.4 in November 2023. Per the ED provider Maris philip, he had heme-negative stools. I spoke to Dr. Armijo and Dr. Reinoso from GI. 2 issues could be causing his pain, progressive CAD versus anemia and GI bleeding. Given the crushing
chest pain he is experiencing now, first we must address his coronary disease. Plan will be for catheterization today. If catheterization is unchanged from prior, would not pursue any intervention and asked GI to establish care of his chronic
anemia and GI bleeding to see if this would help with his symptoms. If there is a discrete lesion to stent, then would stent that and delay further GI evaluation for 6 months to 1 year. He would likely need further improvement of his anemia with
transfusions either way. I also updated Dr. Lomax as to his plan.
Original Note:
Consultation
Consultation Request
Date/Time Consultation Requested: 04/26/2024 14:00
Date/Time Consultation Performed: 02/25/2024 14:20
Requesting Provider: ZULMA Sharma
Performing Provider: ZULMA Jean for Dr. Cortez
Reason for Consultation: Unstable angina
Medical History
-
Chief Complaint: Chest pain
History of Present Illness:
Chaparro Mejia is a 68 year old male (known to Dr. Langford & Dr. Armijo) with . His chest pain increased approximately 2 months ago, he believes in the middle of February. At the current moment, he is having 8/10 midsternal anterior chest pain.
He describes it as a stabbing sensation. Occasionally, it will radiate into his left shoulder. At home, he has had associated diaphoresis and presyncope. Last evening he had 2 episodes of yellow emesis. He is taking anywhere from 2-8 sublingual
nitroglycerin a day. He does not need to be performing any activity to have the stabbing chest pain. He was planned to have a cardiac catheterization with Dr. Damián Armijo at [facility] tomorrow. He was referred to the ER by GI for chest pain. He
was told to get in contact with GI due to BRBPR. This does not happen every day. EKG with T wave flattening. Initial troponin <0.012. He was given sublingual nitroglycerin during this consultation and chest pain reduced to 1�2/10 in severity.
He will be started on nitroglycerin drip. Will discuss with interventional cardiology.
Past Medical History
Past Medical History: CAD, CHF (ICM [recovered]), HTN, Hypercholesterolemia and Other (SMA stent [2023])
Past Surgical History: Cardiac
Social History
Tobacco: Former Smoker
Alcohol: Occasional
Drug: None
Personal:
Living: With Roomate
Family History
Family History: Early CAD (Sibling with NH at age 38)
Allergies / Home Medications
Allergy/AdvReac Type Severity Reaction Status Date / Time
No Known Allergies Allergy Verified 04/26/24 12:44
�Medication �Instructions �Recorded �Confirmed �Type
aspirin 81 mg tablet,delayed 81 mg PO DAILY Blood Clot 11/22/20 12/01/23 History
release Prevention/Tx
clopidogrel 75 mg tablet 75 mg PO QPM Blood Clot 11/04/23 12/01/23 History
Prevention/Tx
magnesium oxide 200 mg PO TID Electrolyte Repletion 11/04/23 12/01/23 History
potassium chloride 10 mEq 10 meq PO BID@0800,1300 11/04/23 12/01/23 History
tablet,extended release Electrolyte Repletion
rosuvastatin 20 mg tablet 20 mg PO QPM High Cholesterol 11/04/23 12/01/23 History
pantoprazole 40 mg tablet,delayed 40 mg PO DAILY Gastrointestinal 12/01/23 12/01/23 History
release Issue
isosorbide mononitrate 30 mg 30 mg PO DAILY #60 tabs 12/09/23 Rx
tablet,extended release 24 hr
metoprolol succinate 50 mg 50 mg PO DAILY #60 tabs 12/09/23 Rx
tablet,extended release 24 hr
torsemide 20 mg tablet 20 mg PO DAILY #60 tabs 12/09/23 Rx
Review of Systems
-
History Source: Patient
All other systems: Negative unless noted
Constitutional: Fatigue
EENT: No Symptoms
Respiratory: No Symptoms
Cardiac: Chest Pain
Abdomen/GI: Vomiting and Bloody Stools
: No Symptoms
Musculoskeletal: No Symptoms
Skin: No Symptoms
Neurological: No Symptoms
Endocrine: No Symptoms
Hematologic/Lymphatic: No Symptoms
Physical Exam
Vital Signs
Temp Pulse Resp BP Pulse Ox
98.1 F 67 22 109/85 97
04/26/24 12:40 04/26/24 13:01 04/26/24 13:01 04/26/24 14:30 04/26/24 13:01
Lab Results
04/26/24 12:56
04/26/24 12:56
Troponin I < 0.012 ng/ml 04/26/24 12:57
Physical Exam
General: Well Developed, Well Nourished and Pain (chest)
HEENT: Normocephalic, Anicteric and Moist Mucous Membranes
Respiratory: Clear and Non Labored Respirations
Cardiac: S1/S2 and Regular Rhythm; Negative Peripheral Edema
Breast: Deferred by me
GI: Soft, Non Tender, Non Distended and Normal Bowel Sounds
Rectal: Deferred by Provider
Genito-urinary: No Costovertebral Tender
Musculoskeletal: No Clubbing, No Cyanosis and No Edema
Skin: Warm and Dry
Neuro: AO x 3
Hematologic/Lymphatic: No Lymphadenopathy
Psych: Calm
Impression / Plan
-
BACKGROUND: 68M premature coronary artery disease status-post CABG (in 1992 at [facility]. at the age of 37; known occluded SVG to diagonal), subsequent coronary stenting (2006 & 2020; on chronic aspirin/Plavix), ischemic cardiomyopathy (previous LVEF
40-45%, now normalized), hypertension, hyperlipidemia, prediabetes, SMA stent (10/2023), and former cigarette use (quit 05/2021), presented with a chief complaint of chest pain
Cardiologists: Dr. Langford & Dr. Armijo
Unstable angina
-Improvement with sl nitro, start nitroglycerin drip
-No missed doses of aspirin, no clopidogrel this morning
-Will discuss with interventional cardiology
BRBPR
-Most recent episode this morning
-He did not take clopidogrel this morning, on ASA
-Hemoglobin stable
-GI to consult
CAD
-CABG 1992 (age 37), PCI 2006 (mLcx & OM2), & PCI 2020 (ostial LM)
-[facility] 10/2022: attempted wiring of the LAD (75% mid LAD and 90% apical LAD stenosis), aborted secondary to severe tortuosity and pleating of the SIFUENTES graft, films reviewed by interventional cardiology at admission
-Continue ASA, Ranexa, & metoprolol succinate
ICM, HFpEF (recovered EF)
-Echocardiogram this admission with LVEF of 65-70%, mild to moderate aortic regurgitation.
-He is followed at [facility] for advanced heart failure management
-Compensated on examination (currently with decreased PO intake); continue torsemide to 20 mg daily.
Prolonged QT, chronic
HLD, on rosuvastatin
SMA stent, 10/2023
PAD
Data Reviewed
-
EKG: Report Reviewed by me (Sinus rhythm with PACs, prolonged QT, nonspecific T wave abnormality)
Medical Tests (Nuc Med, Echo etc): Report Reviewed by me (Prior cardiac catheterization as above)
Labs: Labs Reviewed by me
Old Records: Reviewed
[2024-04-26 15:46] LABS: Amphetamines Negative (Negative); Barbiturates Negative (Negative); Benzodiazepines Negative (Negative); Buprenorphine Negative (Negative); Cocaine Negative (Negative); Marijuana Negative (Negative); Methadone Negative (Negative); Methamphetamines Negative (Negative); Opiates Negative (Negative); Phencyclidine Negative (Negative); Tricyclic Antidepressants Negative (Negative)
--- NOTE | 2024-04-26 16:33 | HPS.HSE ---
Family Physician
-
Family Physician: * NONE
Chief Complaint
-
Chest pain
History of Present Illness
Patient is a 68-y M with past history of CAD s/p stent *5 and bypass surgery, CHF (ICM recovered), HTN, HLP who came in to the ER with chest pain. He was planned to have a cardiac catheterization tomorrow at [facility] but had a low hemoglobin level in
his blood work and was advised to go to the ER. He has been having chest pain at rest for approximately 2 months now. He described the severity as 8/10 upon admission but has now improved to a severity of 2/10 after taking sublingual nitroglycerin
tablets. Patient notes he had dark stools (melena) in October 2023. For the past two weeks, he has had intermittent right blood in his stool. No hematemesis. Notes lightheadedness and postural dizziness. Patient reports diffuse abdominal pain for
the past few weeks, unrelated to eating.
Patient is scheduled for cardiac catheterization today.
Medical History
Past Medical History
Past Medical History: Reports CAD, CHF, HTN, Hypercholesterolemia and IN
Past Surgical History: Reports Cardiac
Additional Past Surgical History:
Laminectomy, SMA stent
Social History
Tobacco: Former Smoker
Alcohol: Occasional
Personal:
Family History
Family History: Early CAD and CAD
Allergies / Home Medications
Allergies reflects when Allergies were last updated in [facility].
Home Medications with original date entered in [facility]
Allergy/Medication List:
Allergies
Allergy/AdvReac Type Severity Reaction Status Date / Time
No Known Allergies Allergy Verified 04/26/24 12:44
Home Medications
aspirin 81 mg tablet,delayed release 81 mg PO DAILY Blood Clot Prevention/Tx 11/22/20
clopidogrel 75 mg tablet 75 mg PO QPM Blood Clot Prevention/Tx 11/04/23
magnesium oxide 200 mg PO TID Electrolyte Repletion 11/04/23
potassium chloride 10 mEq tablet,extended release 20 meq PO BID@0800,1300 Electrolyte Repletion 11/04/23
rosuvastatin 20 mg tablet 20 mg PO QPM High Cholesterol 11/04/23
pantoprazole 40 mg tablet,delayed release 40 mg PO DAILY Gastrointestinal Issue 12/01/23
metoprolol succinate 50 mg tablet,extended release 24 hr 50 mg PO DAILY #60 tabs 12/09/23
isosorbide mononitrate 30 mg tablet,extended release 24 hr 60 mg PO DAILY 04/26/24
torsemide 20 mg tablet 60 mg PO BID 04/26/24
Review of Systems
-
History Source: Patient
Constitutional: Reports No Symptoms
EENT: Reports No Symptoms
Respiratory: Reports No Symptoms
Cardiac: Reports Chest Pain
Abdomen/GI: Reports Abdominal Pain and Bloody Stools
: Reports No Symptoms
Musculoskeletal: Reports Edema
Skin: Reports No Symptoms
Neurological: Reports No Symptoms
Endocrine: Reports No Symptoms
Hematologic/Lymphatic: Reports No Symptoms
Physical Exam
Vital Signs
Vital Signs
Temp Pulse Resp BP Pulse Ox
98.1 F 68 15 108/65 99
04/26/24 12:40 04/26/24 15:30 04/26/24 15:30 04/26/24 15:00 04/26/24 15:30
Physical Exam
General: Well Developed, Well Nourished and No Apparent Distress
Respiratory: Clear
Cardiac: S1/S2 and Regular Rhythm
GI: Non Tender
Musculoskeletal: Edema, Left Lower Extremity and Edema, Right Lower Extremity
Neuro: Awake, Alert and Oriented
Psych: Calm
Laboratory Results
-
04/26/24 12:56
04/26/24 12:56
Laboratory Results
PT 15.7 Sec (11.4-14.6) H 04/26/24 12:56
INR 1.27 04/26/24 12:56
Total Bilirubin 1.2 mg/dl (0.2-1.3) 04/26/24 12:56
AST 78 U/L (17-59) H 04/26/24 12:56
ALT 32 U/L (0-50) 04/26/24 12:56
Alkaline Phosphatase 139 U/L (38-126) H 04/26/24 12:56
Troponin I < 0.012 ng/ml 04/26/24 12:57
Impression/Plan
-
IMPRESSION: 68 y M with history of CAD, CHF, HTN, HLP with unstable angina. Was found to have low Hgb levels on pre-cardiac catheterization blood work.
PLAN:
Unstable angina
Check troponin - Negative
EKG - Unchanged compared to prior
Cardiology consult - Nitroglycerin IV drip
Scheduled catheterization
HFpEF
Cardiology consult
Check BNP
Check Troponin - Negative
Anemia (chronic)
Possible GI blood loss (MCV on this admission 92.3)
Check Iron studies
Monitor CBC
Transfuse if Hgb >7
HTN
Continue home meds
Hypokalemia
Continue Potassium chloride
HLP
Continue statin
GERD
Continue Pantoprazole
Full code
DVT prophylaxis SCD
--- NOTE | 2024-04-26 16:35 | ITS.CL.CATH ---
[employer]or - Catheterization
Cardiac Catheterization
Procedure Report:
Insert complete study CARDIAC CATHETERIZATION REPORT
Date of Procedure: 04/26/2024
Referring: Dr. Dewayne Cortez
Indication: chest pain
PROCEDURE:
1. Left heart catheterization.
2. Coronary angiography.
3. Bypass angiography.
ACCESS:
6 Ecuadorean right femoral artery (ultrasound guided)
CATHETERS:
1. 6 Ecuadorean LOLA (Merit)
2. 6 Ecuadorean JR4
3. 6 Ecuadorean JL4
HEMODYNAMIC DATA
AO (s/d/x mmHg): 115/62 (84)
LV (s/x mmHg): 122/29
CORONARY ANGIOGRAPHY
Dominance: right
Left Main: Patent stent extending into the LCx with mild in-stent restenosis.
LAD: Occluded proximally with the mid to distal vessel supplied via the SIFUENTES. There are diffuse serial high grade lesions in the mid and distal vessel that are angiographically similar to prior catheterization. The LAD supplies L-R collaterals to
the RCA via the septals.
Circumflex: Large vessel giving rise to two small marginal branches and a large OM3. There is a patent stent extending from the mid-LCx into OM3 with mild ISR. There is moderate diffuse disease in the continuation of the distal LCx that is
angiographically unchanged from prior.
RCA: Occluded chronically in the mid-vessel. The distal vessel is supplied via septal collaterals from the LAD fed via the SIFUENTES.
BYPASS GRAFT ANGIOGRAPHY
SIFUENTES to LAD: Taken as a pedicle and forms an anastomosis with the mid-LAD suppling antegrade flow to the apex and retrograde flow to the proximal [employer].
SVG to Diagonal: Know to be chronically occluded and not selectively injected.
Closure Device: Perclose x1
Radiation dose (mGy): 514.43
DAP (cm2.Gy): 44.4895
Fluoroscopy time (minutes): 13.5
CONCLUSIONS:
1. Coronary angiography demonstrates severe triple vessel coronary artery disease in a right dominant system status post-CABG that is unchanged from prior catheterization.
2. High LV filling pressure and no aortic stenosis on pullback.
RECOMMENDATIONS:
1. Expectant management after cardiac catheterization via right common femoral approach, bed rest x 4 hours.
2. Continue medical management of chronic coronary syndrome and ischemic cardiomyopathy with home anti-anginals, consider uptitration if further chest pain.
3. Continue ASA/plavix. May consider de-escalation to SAPT given no recent stents and stable disease, as well as ongoing bleeding.
4. Consider gentle diuresis given elevated LVEDP with monitoring of Cr.
5. GI consultation to evaluate GI bleeding.
Copy to: Dr. Chaparro Langford, Dr. Damián Armijo
Denton Mcduffie MD, PhD
--- NOTE | 2024-04-26 17:02 | W.PN.UPDATE ---
Update Note
Progress Note Update
Seen and examined by me independently in collaboration with the medical records auditor Rose.
Past medical history/social history/medication/allergies reviewed.
Lab data and imaging data reviewed.
Patient with complex coronary artery disease was supposed to get the cardiac cath at [place] tomorrow and was referred to ER because of anemia issues.
The precath labs showed he is anemic and when he mentioned that he has noted some intermittent rectal bleeding he was referred to the ER here today for further evaluation.
He has CAD s/p CABG in had a subsequent coronary stenting on chronic aspirin and Plavix. He had complex coronary anatomy on prior cardiac catheterization were aborted because of the anatomy issues.
If hemoglobin is not too far from baseline. He is known to be anemic since beginning of the year more than 2020. It is normocytic. It was recently noted to be microcytic. He also has chronic thrombocytopenia. Rectal exam today was negative for
any blood per rectum.
Patient history of symptomatic abdominal angina for mesenteric ischemia in fact had an SMA stent placed in the past. He says with SMA stent placement to his abdominal pains are much better. But again in the last 2 months he started to have
intermittent abdominal pains. In the last 2 weeks more intense. Yesterday he had an abdominal pain with nausea and had 2 small episode of emesis as well. No particular relation with food. Subtle generalized abdominal discomfort intermittently.
He also notes that is intermittent rectal bleeding which is mostly bright to dark. He has not had any evaluation with regards to his abdominal pains. Last abdominal imaging was a CT angiogram in November 2023 which showed patent SMA.
Denies abdominal is not distended and soft but he does have nonspecific discomfort mostly in the left side of the abdomen but no rebound guarding or rigidity.
With about GI picture he also has chest pain to which are left-sided and radiates to the left shoulder. He recently started to take increasing amounts of nitrates. His EKG shows nonspecific T changes but no acute ST-T changes and her troponins on
admission were negative. In view of unstable angina picture he went on to have cardiac catheterization the report of which is pending.
If Coronary anatomy is deemed stable I would start looking at abdominal vasculature with repeat CT angiogram to look at the SMA stent and consider GI eval. So far no evidence of active GI bleeding. Follow H&H closely.
[2024-04-26] MEDS: DEMADEX 60 MG PO (18:01)
[2024-04-26] MEDS: PLAVIX 75 MG PO (18:01)
[2024-04-26] MEDS: CRESTOR 20 MG PO (18:01)
--- NOTE | 2024-04-26 18:18 | PTCARENOTE ---
Patient received from the clinical laboratory technician @ 1640, VSS. Has left sided chest pain 4 out 10 radiated to his left shoulder. Dr. Lomax present in the room. Patient appears fairly comfortable and in no acute distress. HE reports over 2 months of chest pain
worsens with activity for almost 2 months taking SL nitro at home with relief. SR on telemetry. Pain re-assessed now 2 out 10, eyes closed resting. Right cath site CDI and dressing in dry, pulses with Doppler, dependent +2 edema
[2024-04-26 18:26] LABS: Lipase 367 U/L (23-300)
[2024-04-26 18:40] LABS: Lactic Acid 1.2 mmol/L (0.7-2.0)
[2024-04-26] MEDS: MAG-TAB SR 84 MG PO (20:54)
[2024-04-27] VITALS (24 sets, daily range): BP systolic 83–110; BP diastolic 46–68; PULSE 71; O2SAT 96–97; BMI 27.9
[2024-04-27] MEDS: TYLENOL 1000 MG PO (01:46)
[2024-04-27] MEDS: LIDOCAINE 4% PATCH 1 PATCH TOPICAL (01:47)
--- NOTE | 2024-04-27 02:48 | PTCARENOTE ---
0115 Pt c/o rt abd sharp pain 10/10 associated with nausea. Pt stated that he had similar pain before. [employer]AR TECH ordered Tylenol and lidocaine patch. Pain improved to 4/10.
[2024-04-27 04:33] LABS: % Basophils 0.6 % (0-2); % Eosinophils 4.6 % (0-6); % Immature Granulocytes 0.2 % (0-0.5); % Lymphocytes 22.2 % (20.5-51.1); % Monocytes 9.9 % (1.7-9.3); % Neutrophils 62.5 % (42.2-75.2); Absolute Eosinophils 0.2 10^3/uL (0-0.7); Absolute Lymphocytes 1.1 10^3/uL (1.2-3.4); Absolute Monocytes 0.5 10^3/uL (0.1-0.6); Absolute Neutrophils 3.1 10^3/uL (1.4-6.5); Hematocrit 25.6 % (39.0-52.0); Hemoglobin 8.6 g/dL (13.0-18.0); Mean Corp Hgb Conc. 33.6 g/dL (33.0-37.0); Mean Corpuscular Hgb 30.1 pg (27.0-31.0); Mean Corpuscular Volume 89.5 fL (80.0-94.0); Mean Platelet Volume 10.5 fL (7.4-10.4); Nucleated Red Blood Cells % 0 % (-); Platelet Count 105 10^3/uL (130-400); Red Blood Cell Count 2.86 10^6/uL (4.70-6.10); Red Cell Dist. Width 14.6 % (11.5-14.5)
[2024-04-27 04:54] LABS: ALT (SGPT) 26 U/L (0-50); AST (SGOT) 61 U/L (17-59); Albumin 2.8 g/dl (3.5-5.0); Alkaline Phosphatase 133 U/L (38-126); Blood Urea Nitrogen 13 mg/dl (9-20); Calcium 8.5 mg/dl (8.4-10.2); Carbon Dioxide 27 mmol/L (22-30); Chloride 102 mmol/L (98-107); Estimated Creatinine Clearance 80 ml/min; Glucose 98 mg/dl (70-99); Iron 126 ug/dl (49-181); Potassium 3.9 mmol/L (3.5-5.1); Sodium 134 mmol/L (135-145); Total Protein 5.9 g/dl (6.3-8.2); eGFR > 60.00
[2024-04-27 05:02] LABS: NT-proBNP 1150 pg/ml
[2024-04-27 05:03] LABS: Percent Saturation 34 % (20-50); Total Iron Binding Capacity 361 ug/dl (261-462)
--- NOTE | 2024-04-27 05:08 | W.PN.UPDATE ---
Update Note
Progress Note Update
Patient is hypotensive with bp 83/59 HR 63, Symptomatic.
Hgb dropped from 9.7 to 8.6. No signs of bleeding. Will trend h&h.
will give small amount of IVF bolus, 250cc of NSS was ordered.
[2024-04-27 05:25] LABS: TSH Reflex To Free T4 1.76 uIU/ml (0.47-4.68)
[2024-04-27 05:29] LABS: Ferritin 24.5 ng/ml (17.9-464.0)
[2024-04-27] MEDS: NSS 250 IV (05:38)
[2024-04-27 06:00] LABS: Folate 8.3 ng/ml (2.76-20); Vitamin B12 669 pg/ml (239-931)
--- NOTE | 2024-04-27 06:12 | PTCARENOTE ---
BP 83/59 Pt c/o lightheadedness. 250ml NS bolus given. BP improved to 108/63
--- NOTE | 2024-04-27 07:10 | PTCARENOTE ---
Addendum entered by Jeimy Mina RN 04/27/24 07:27:
BP 108/63, HR 76
Original Note:
The patient stated that he felt lightheaded when he sat up to get weighted today. He states that he has been feeling lightheaded at home at times too. His right groin dressing is c/d/i. He does complain of right lower abdominal pain that is painful
to palpation. A lidocaine patch is in place.
[2024-04-27] MEDS: NSS 1000 IV (09:00)
[2024-04-27] MEDS: FLUSH (NSS) 1 FLUSH IV (09:00)
[2024-04-27] MEDS: KCL 20 MEQ PO ×2 (09:01→13:31)
[2024-04-27] MEDS: TOPROL XL 50 MG PO (09:01)
[2024-04-27] MEDS: IMDUR (EXTENDED RELEASE) 60 MG PO (09:01)
[2024-04-27] MEDS: DEMADEX 60 MG PO ×2 (09:01→16:17)
[2024-04-27] MEDS: MAG-TAB SR 84 MG PO ×3 (09:01→21:46)
[2024-04-27] MEDS: ASPIR LOW (ENTERIC COATED) 81 MG PO (09:01)
[2024-04-27] MEDS: PROTONIX 40 MG PO (09:01)
[2024-04-27] MEDS: DILAUDID 0.5 MG IV (09:02)
--- NOTE | 2024-04-27 09:04 | W.PN.UPDATE ---
Update Note
Progress Note Update
I saw and evaluated the patient. I reviewed the resident�s note and agree with findings and plan as documented in the resident�s note.
Patient developed abdominal pain yesterday after his dinner . No nausea, vomiting. No bowel movements here. No rectal bleeding. Abdominal pain is persistent and points to the lower abdomen. He has a pillow on his abdomen for comfort.
No chest pains today.
Feels bit winded today. No cough.
+ S1 plus S2 heard regular.
Chest occasional bilateral expiratory wheeze.
Abdomen-nondistended, soft, bowel sounds present. Epigastric area tenderness and as well as left lower quadrant area tenderness without rebound guarding rigidity noted.
Cardiac catheterization report noted.
Patient with intermittent anginal symptoms with no evidence of TN on this occasion. Cardiac catheterization shows stable CAD anatomy and no interventions recommended. Continue with antianginal medication. Continue with dual antiplatelet agents.
Continue with diuretics [increased left ventricular filling pressures noted on left heart cath]
In view of ongoing abdominal pain and prior history of splanchnic vascular atherosclerosis and mesenteric ischemia/LOLA stent will obtain a CT angiogram.
Drop in H&H since admission noted but no obvious external bleeding. Obtain CT angiogram as above. Follow HH closely. Aim to he hemoglobin higher than 8 and if any recurrent anginal symptoms even at 8 would transfuse PRBC for symptom control.
Discussed with cardiology this morning regarding further plan from there and-no new medication changes or interventions.
--- NOTE | 2024-04-27 09:05 | PTCARENOTE ---
The patient complains of right lower abdominal pain. He rates it a 10/10 on scale. He had 1000mg of Tylenol at 0146. No other pain medication is ordered. Reached out to Dr. Lomax. Dilaudid 0.5mg IV ordered and given.
[2024-04-27] MEDS: ProAIR HFA INHALER 2 PUFF INH ×2 (09:29→18:49)
[2024-04-27 09:31] LABS: Hematocrit 28.5 % (39.0-52.0); Hemoglobin 9.7 g/dL (13.0-18.0)
[2024-04-27 09:53] LABS: Lactic Acid 1.3 mmol/L (0.7-2.0)
--- NOTE | 2024-04-27 10:28 | W.PN.CD ---
Today's Communication / Plan
-
-Patient's cardiac catheterization yesterday revealed patent stents in the left main and circumflex with collateralization, and also chronically occluded mid RCA with collateralization.
-The patient may have refractory anginal symptoms, but it appears to be out of proportion to what the catheterization results show.
-The patient appears to have some degree of possible superimposed non-cardiac chest pain.
-Patient appears to be medically optimized on DAPT and other current cardiac medications; unable to tolerate Ranexa previously.
-Can hold/discontinue Plavix, if needed due to GI bleed.
-Continue aspirin, if possible.
-Would hold off on giving IV fluids (rhonchi).
-Primary team to consult Vascular Surgery, given previous SMA stent.
Impression / Plan
-
BACKGROUND: 68M premature coronary artery disease status-post CABG (in 1992 at [facility] at the age of 37; known occluded SVG to diagonal), subsequent coronary stenting (2006 & 2020; on chronic aspirin/Plavix), ischemic cardiomyopathy (previous LVEF
40-45%, now normalized), hypertension, hyperlipidemia, prediabetes, SMA stent (10/2023), and former cigarette use (quit 05/2021), presented with a chief complaint of chest pain
Cardiologists: Dr. Langford & Dr. Armijo
CAD
-CABG 1992 (age 37), PCI 2006 (mLcx & OM2), & PCI 2020 (ostial LM)
-[facility] 10/2022: attempted wiring of the LAD (75% mid LAD and 90% apical LAD stenosis), aborted secondary to severe tortuosity and pleating of the SIFUENTES graft, films reviewed by interventional cardiology at admission
-Continue ASA, Ranexa, & metoprolol succinate
-Patient's cardiac catheterization yesterday revealed patent stents in the left main and circumflex with collateralization, and also chronically occluded mid RCA with collateralization.
-The patient may have refractory anginal symptoms, but it appears to be out of proportion to what the catheterization results show.
-The patient appears to have some degree of possible superimposed non-cardiac chest pain.
-Patient appears to be medically optimized on DAPT and other current cardiac medications; unable to tolerate Ranexa previously.
BRBPR
-Can hold/discontinue Plavix, if needed due to GI bleed.
-Continue aspirin, if possible.
-GI consulted; hemoglobin currently stable.
-Would hold off on giving IV fluids (rhonchi).
-Primary team to consult Vascular Surgery, given previous SMA stent.
ICM, HFpEF (recovered EF)
-Echocardiogram earlier this year (12/01/2023) with LVEF of 65-70%, mild to moderate aortic regurgitation.
-He is followed at [facility] for advanced heart failure management.
-Compensated on examination (currently with decreased PO intake); continue torsemide to 20 mg daily.
Prolonged QT, chronic
HLD, on rosuvastatin
SMA stent, 10/2023
PAD
Physical Exam
Vital Signs/Labs
Vital Signs
Temp Pulse Resp BP Pulse Ox
98.4 F 67 16 100/64 96
04/27/24 07:16 04/27/24 09:32 04/27/24 09:32 04/27/24 07:16 04/27/24 09:32
04/26/24 04/27/24 04/28/24
06:59 06:59 06:59
Actual Weight 87 kg 85.7 kg
04/27/24 06:00
PT 15.7 Sec (11.4-14.6) H 04/26/24 12:56
INR 1.27 04/26/24 12:56
04/27/24
04:03
Hqi-K-Pmlgnchshzu Pept 1150
LAB Results
04/26/24
12:57
Troponin I < 0.012
Physical Exam
Constitutional: No acute distress and Comfortable
EENT: Anicteric
Cardiovascular: Rhythm & rate is regular, Pedal edema is absent, Systolic murmur present (2/) and S1S2 is normal
Respiratory: Respiratory effort normal and Rhonchi Present
GI: Soft and Abdomen is tender
Neuro/Psych: AO x 3
Other: Skin (Warm, dry, intact)
Data Reviewed
-
Date of Service: April 27, 2024
EKG: Tracing Personally Visualized and interpreted (Telemetry: Sinus rhythm)
Medical Tests (PFT, Pathology etc): Discussed with Physician (Primary Hospitalist)
Labs: Labs Reviewed by me
--- NOTE | 2024-04-27 10:29 | CON.GI ---
Addendum entered and electronically signed by Arti Reinoso MD 04/27/24 16:23:
Sent msg to /cardiology as well
Addendum entered and electronically signed by Arti Reinoso MD 04/27/24 16:18:
I saw and examined the patient.
The ANIMAL CARE TAKER or PA's note was reviewed and I agree with the note.
Comment: 67-year-old male with complicated medical history including CAD with stents, ischemic cardiomyopathy, presenting with anginal-like symptoms, cardiac catheterization 04/26/2024 showing patent stents in the left main and circumflex and chronic
occlusion of mid RCA with collaterals, GI consult was called in for abdominal pain and intermittent rectal bleeding, anemia.
History of SMA stenosis status post stenting October 2023, reports that the pain has having is in the lower abdomen, sharp pain, on and off similar to previous symptoms related to SMA stenosis. This is not postprandial, no associated weight loss.
Reports that slightly worse pain with bowel movements. Nausea but no vomiting. No heartburn or trouble swallowing. Mild constipation with some pushing and straining and intermittent bright blood on the toilet tissue and in the bowl. Hemoglobin
since October 2023 between 9.0 and 12.0. Upper endoscopy and colonoscopy in October 2023, no varices or evidence of ulcers in the stomach, benign duodenal polyp removed, multiple cecum, ascending colon, transverse and sigmoid polyps noted but not
removed because of poor prep.
Was supposed to have outpatient repeat colonoscopy, not done due to active cardiac symptoms.
On exam heme-negative stool today.
CT scan angiogram showing patent SMA stent, mesenteric vasculature otherwise patent. Cirrhotic morphology of the liver, gallstones on small volume ascites which was noted on CT scan October 2023.
-Lower abdominal pain, intermittent, no association with food, slightly worse with bowel movements
With history of SMA stenosis and stenting, CT angio done and SMA stent patent
This pain is not postprandial and no associated weight loss, less likely mesenteric origin.
No diverticulitis or colitis.
Cannot rule out constipation causing some pain.
If he has constipation, start Colace 100 mg tablets, 2 a day. Will monitor bowel movements in the hospital.
-Anemia which seems to be chronic
Intermittent rectal bleeding, likely related to hemorrhoids, heme-negative stool today
Could try Preparation H suppositories as needed for rectal bleeding
He does have multiple colon polyps that need to be removed. We will set up for follow-up appointment with Dr. Cristobal to schedule outpatient colonoscopy with Plavix washout
Continue PPI for now
-Cirrhotic morphology of the liver noted on CT scan, previous history of excessive alcohol use but currently reports drinking about 6 beers a week
Suggested completely abstaining from alcohol.
No evidence of varices on upper endoscopy and no decompensation. Small volume ascites but not significant.
Hepatitis B and C serologies - October 2023.
AST elevated at 61 with normal ALT, and normal bilirubin. Alk phos slightly elevated
Will check celiac panel and alpha-fetoprotein.
Needs outpatient FibroScan.
Will follow for now
-
Original Note:
Consultation
-
Date/Time Consultation Requested: 04/27/24 0834
Date/Time Consultation Performed: 04/27/24 1030
Requesting Provider: Inderjit Stephens MD
Performing Provider: ZULMA Prescott, Arti Reinoso MD
Reason for Consultation: abdominal pain
Medical History
Chief Complaint / HPI
Chief Complaint: abdominal pain/rectal bleeding
History of Present Illness:
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
2020) cath 2022 with attempted wiring LAD and aborted, ischemic CM, SMA stenosis with SMA stent 10/2023 and prior tobacco use follow with cardiology Dr. Langford and Dr. Sewell at [facility]. Pt was set up for cath 04/27 at [facility] for increased angina
but noted drop in hbg and increased rectal bleeding. Pt then presented to 04/26. Cath completed with patent stents with left main and circumflex with collateralization and chronic occluded mid RCA with collateralization. hbg was 9.7 on
admission. Pt with several issues and asked to see from GI. He reports drop in hbg from 13 range to 9.7 on admission though prior hbg 9-12 since October. He also report rectal bleeding. states daily bleeding in October with EGD with duodenal
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 colonoscopy was with limited colon with poor prep and multiple polyps not resected. He was due for follow up with Dr. Cristobal but with angina repeat was delayed. He admits currently
bleeding is every 3 days with red blood in bowel. He will have some days with normal stools and no blood. He also reports abdominal pain. Initially lower abdomen then right sided. Per staff also noted with chest pain in variable locations since
admission. CT angio was completed this am with stable SMA stent placed in October with patency and changes of cirrhosis and cholelithiasis with no AAA but extensive atherosclerotic calcification.
Pt admits to periods of nausea and dry heaves with minimal vomiting. Lower abdominal pain rates to 10/10 but currently 6/10 without triggering or alleviating factors. He denies dysphagia, odynophagia, GERD, diarrhea, constipation or black
stools. Pt also noted with hypoalbuminemia and thrombocytopenia.
Past Medical History
Past Medical History: CAD, HTN, Hypercholesterolemia, MN and Other (pilonidal cyst, pre DM, colon polyps, cirrhosis per imaging )
Past Surgical History: Cardiac (CABG, prior stent ), Orthopedic (lami, right knee replacement ) and Other (excision of pilonidal cyst, hernia repair, SMA stent 10/2023)
Social History
Tobacco: Former Smoker (quit 2 -2 1/2 years ago)
Alcohol: Occasional (beer on weekends )
Drug: None
Living: Other (ex girlfriend )
Employment: Employed (semi retired [employer])
Family History
Family History: Other (no family hx colon CA or polyps )
Allergies / Home Medications
Allergy/AdvReac Type Severity Reaction Status Date / Time
No Known Allergies Allergy Verified 04/26/24 18:00
�Medication �Instructions �Recorded
aspirin 81 mg tablet,delayed 81 mg PO DAILY Blood Clot 11/22/20
release Prevention/Tx
clopidogrel 75 mg tablet 75 mg PO QPM Blood Clot 11/04/23
Prevention/Tx
magnesium oxide 200 mg PO TID Electrolyte Repletion 11/04/23
potassium chloride 10 mEq 20 meq PO BID@0800,1300 11/04/23
tablet,extended release Electrolyte Repletion
rosuvastatin 20 mg tablet 20 mg PO QPM High Cholesterol 11/04/23
pantoprazole 40 mg tablet,delayed 40 mg PO DAILY Gastrointestinal 12/01/23
release Issue
metoprolol succinate 50 mg 50 mg PO DAILY #60 tabs 12/09/23
tablet,extended release 24 hr
isosorbide mononitrate 30 mg 60 mg PO DAILY 04/26/24
tablet,extended release 24 hr
torsemide 20 mg tablet 60 mg PO BID 04/26/24
Review of Systems
-
History Source: Patient
Constitutional: Reports Weight Loss (few lbs ) and Chills
EENT: Reports No Symptoms
Respiratory: Reports Trouble Breathing (at times )
Cardiac: Reports Chest Pain
Abdomen/GI: Reports Abdominal Pain, Nausea and Bloody Stools
Musculoskeletal: Reports No Symptoms
Skin: Reports No Symptoms
Neurological: Reports No Symptoms
Endocrine: Reports No Symptoms
Hematologic/Lymphatic: Reports Bleeding
Vital Signs
Temp Pulse Resp BP Pulse Ox
98.4 F 67 16 100/64 96
04/27/24 07:16 04/27/24 09:32 04/27/24 09:32 04/27/24 07:16 04/27/24 09:32
Physical Exam
Exam
General: Well Developed, Well Nourished and Other (some distress with abdominal pain )
HEENT: Normocephalic and Anicteric
Respiratory: Clear
Cardiac: Regular Rhythm
GI: Soft, Non Distended and Tender (diffuse with some guarding on exam )
Rectal: Brown and Hem Negative
Musculoskeletal: No Clubbing and No Cyanosis
Skin: Warm and Dry
Neuro: Awake, Alert and AO x 3
Psych: Calm
Results
WBC Cancelled 04/27/24 06:00
Hgb 9.7 g/dL (13.0-18.0) L 04/27/24 09:18
Hct 28.5 % (39.0-52.0) L 04/27/24 09:18
MCV Cancelled 04/27/24 06:00
Plt Count Cancelled 04/27/24 06:00
Absolute Neuts (auto) Cancelled 04/27/24 06:00
PT 15.7 Sec (11.4-14.6) H 04/26/24 12:56
INR 1.27 04/26/24 12:56
Sodium Cancelled 04/27/24 06:00
Potassium Cancelled 04/27/24 06:00
Chloride Cancelled 04/27/24 06:00
Carbon Dioxide Cancelled 04/27/24 06:00
BUN Cancelled 04/27/24 06:00
Creatinine Cancelled 04/27/24 06:00
Calcium Cancelled 04/27/24 06:00
Total Bilirubin 1.0 mg/dl (0.2-1.3) 04/27/24 04:03
AST 61 U/L (17-59) H 04/27/24 04:03
ALT 26 U/L (0-50) 04/27/24 04:03
Alkaline Phosphatase 133 U/L (38-126) H 04/27/24 04:03
Lipase 367 U/L (23-300) H 04/26/24 12:56
Diagnostic Image Results:
04/27/24 CT Abd/pelvis Angio W/wo Iv
Unchanged positioning of the stent within the proximal SMA which appears patent.
No evidence of abdominal aortic aneurysm or acute dissection. Extensive atherosclerotic calcifications of the aorta and branch vessels.
Cirrhotic morphology with small volume ascites.
Cholelithiasis.
Prior GI Procedures:
EGD: 10/2023 mary - Normal esophagus.
- Erythematous mucosa in the gastric body. Biopsied.
- A single duodenal polyp. Resected and retrieved.
bx polyp with duodenitis, chronic inactive gastritis paretial cell hyperplasia no hpylori
Colonoscopy: 10/2023 Mary - Preparation of the colon was fair.
- Hemorrhoids found on perianal exam.
- Stool in the transverse colon, in the ascending
colon and in the cecum.
- Multiple 5 to 15 mm polyps in the sigmoid colon, in
the transverse colon, in the ascending colon and in
the cecum.
- Internal hemorrhoids.
Assessment / Plan
-
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
2020) cath 2022 with attempted wiring LAD and aborted, ischemic CM, SMA stenosis with SMA stent 10/2023 and prior tobacco use follow with cardiology Dr. Langford and Dr. Sewell at [facility]. Pt was set up for cath 04/27 at [facility] for increased angina
but noted drop in hbg and increased rectal bleeding. Pt then presented to 04/26. Cath completed with patent stents with left main and circumflex with collateralization and chronic occluded mid RCA with collateralization. hbg was 9.7 on
admission. Pt with several issues and asked to see from GI. He reports drop in hbg from 13 range to 9.7 on admission though prior hbg 9-12 since October. He also report rectal bleeding. states daily bleeding in October with EGD with duodenal
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 colonoscopy was with limited colon with poor prep and multiple polyps not resected. He was due for follow up with Dr. Cristobal but with angina repeat was delayed. He admits currently
bleeding is every 3 days with red blood in bowel. He will have some days with normal stools and no blood. He also reports abdominal pain. Initially lower abdomen then right sided. Per staff also noted with chest pain in variable locations since
admission. CT angio was completed this with stable SMA stent placed in October with patency and changes of cirrhosis and cholelithiasis with no AAA but extensive atherosclerotic calcification.
-abdominal pain
-rectal bleeding
-anemia
-cirrhosis noted in October and repeat CT 04/27
-thrombocytopenia
-hypoalbuminemia
-hyponatremia
-ETOH use
-SMA stent 10/2023
-chest pain/shortness of breath
-CAD with prior CABG and stenting on ASA and Plavix
other medical problems:
-MN
-HTN
-hypercholesterolemia
-hx GERD
-hernia repair
-prior tobacco abuse
-cholelithaiasis
PLAN:
Pt with multiple issues-- he report rectal bleeding-- exam today with heme neg brown stool no bleeding - etiology hemorrhoids vs other
monitor stools and hbg
due OP colonoscopy for repeat with poor prep and removal of polyps
will need to be off Plavix to proceed
with anemia not too far off baseline he also has thrombocytopenia and hypoalbuminemia with changes of cirrhosis on imaging no ascites reported --prior hepatitis panel neg- will need further serology outpatient- discussed diagnosis with patient (pt
unaware of diagnosis), EGD no EV seen in 10/2023 MELD 3.0- 12
counseled on quitting ETOH and need for follow up, vaccination for hep A and B
pt also with abdominal pain CT stable
to increase diet and monitor
for vascular eval with hx SMA stent
-
-
Thank you for consultation and allowing me to participate in the patient's care. Please call the inventory control specialist GI physician during the after hours with any questions or concerns.
--- NOTE | 2024-04-27 10:52 | PTCARENOTE ---
Addendum entered by Jeimy Mina RN 04/27/24 11:15:
He stated that his right chest pain 'felt like an elephant sitting on him'
Original Note:
Dilaudid 0.5mg IV given for abdominal pain that he rated a 10/10 on scale. In addition, he stated that he had right sided upper chest 'pressure' that he rated a 6/10 on scale. Post pain medication evaluation he rated his abdominal pain an 8/10 on
scale and his right chest pressure unchanged at a 6/10 on scale. He did have some nausea post pain medication administration and I gave him some gina magy to help relieve it.
--- NOTE | 2024-04-27 11:42 | CM ---
CM following for DC planning needs.
Met w/ patient at bedside to complete initial assessment.
Pt. resides w/ sig. other in a private, 2 story [facility] w/ 3 SOFY.
Functionally, patient is indep. w/ ADLs, mobility without the use of any assisted device.
Pt. uses [facility] in [place] for Rx needs.
Anticipated DC plan is for home, no needs.
Will follow.
--- NOTE | 2024-04-27 13:32 | PTCARENOTE ---
The patient's nausea is better. He ate 100% on his lunch.
--- NOTE | 2024-04-27 14:40 | W.PN.HOSP.TC ---
Today's Communication/Plan
-
Continue torsemide and imdur
Hold IV fluids
Follow CBC
Assessment / Plan
Assessment / Plan
IMPRESSION: 68 y M with history of CAD, CHF, HTN, HLP with unstable angina. Was found to have low Hgb levels on pre-cardiac catheterization blood work.
PLAN:
Unstable angina
Check troponin - Negative
EKG - Unchanged compared to prior
Cardiology consult - Nitroglycerin IV drip
Catheterization patent stents in the left main and circumflex with collateralization, and also chronically occluded mid RCA with collateralization
Angiography essentially unchanged from prior catheterization
HFpEF
Cardiology following
BNP 1150
Troponin - Negative
Continue toresmide
Anemia (chronic)
Possible GI blood loss (MCV on this admission 92.3)
Check Iron studies
Monitor CBC; check H&H
Transfuse if Hgb >7
GI following
Abdominal pain
CT AP with stable findings; no acute issues noted
Lactic acid within normal limits
GI following
HTN
Continue home meds
Hypokalemia
Continue Potassium chloride
HLP
Continue statin
GERD
Continue Pantoprazole
Full code
DVT prophylaxis SCD
Anticipated Discharge: 24 - 48 hours
Subjective/Interval History
-
Date of Service: April 27, 2024
Objective Data
-
Labs:
Laboratory Results
04/27/24 04/27/24 04/27/24
04:03 06:00 09:18
WBC 5.0 Cancelled
Hgb 8.6 L Cancelled 9.7 L
Hct 25.6 L Cancelled 28.5 L
Plt Count 105 L Cancelled
Sodium 134 L Cancelled
Potassium 3.9 Cancelled
Chloride 102 Cancelled
Carbon Dioxide 27 Cancelled
BUN 13 Cancelled
Creatinine 0.9 Cancelled
Glucose 98 Cancelled
Calcium 8.5 Cancelled
Total Bilirubin 1.0
AST 61 H
ALT 26
Alkaline Phosphatase 133 H
04/27/24 04/27/24
16:00 22:00
WBC
Hgb Pending Pending
Hct Pending Pending
Plt Count
Sodium
Potassium
Chloride
Carbon Dioxide
BUN
Creatinine
Glucose
Calcium
Total Bilirubin
AST
ALT
Alkaline Phosphatase
Vital Signs:
Vital Signs
Temp Pulse Resp BP Pulse Ox
97.9 F 64 16 92/64 96
04/27/24 11:28 04/27/24 11:28 04/27/24 11:28 04/27/24 11:28 04/27/24 11:28
I&O
04/26/24 04/27/24 04/28/24
06:59 06:59 06:59
Intake Total 1530 / 1530 240 / 240
Output Total 2475 / 2475 2475 / 2475
Balance -945 / -945 -2235 / -2235
Review of Systems
-
History Source: Patient
All other systems: Reviewed and negative
Abdomen/GI: Reports Abdominal Pain
Physical Exam
-
General: Appears in Distress
HEENT: Normocephalic, Atraumatic, Moist Mucous Membranes and Anicteric
Respiratory: Clear to Auscultation and Non Labored Respirations
Cardiac: Regular Rhythm and S1/S2
GI: Soft, Nondistended and Tender
Genito-urinary: No Costovertebral Tender
Skin: Warm, Dry and IV Access / Catheter Site
Neuro: Awake, Alert, Oriented and Nonfocal/Grossly Intact
Psych: Calm
[2024-04-27 16:45] LABS: Hematocrit 28.3 % (39.0-52.0); Hemoglobin 9.5 g/dL (13.0-18.0)
--- NOTE | 2024-04-27 17:19 | W.PN.UPDATE ---
Update Note
Progress Note Update
68-year-old male with complex medical history, known to the vascular service status post SMA stent placement 11/09/2023. This was done for suspected chronic mesenteric ischemia. Patient notes at that time he had had chronic abdominal pain that was
not postprandial necessarily but intermittent. At the time immediately preceding stent placement he had progression to severe constant abdominal pain. Therefore had undergone angioplasty/stenting of his superior mesenteric artery. Patient notes
resolution of his pain following the procedure. He has had significant cardiac history with known history of CABG and subsequent stents. Was due for follow-up angiography due to ongoing anginal pain he has in his chest regularly for which she is
taking nitroglycerin daily regularly. His catheterization of the [facility] was canceled due to anemia from what I gather. Underwent coronary catheterization here. No intervention rendered at the time. Findings were unchanged
from prior catheterization. Asked to evaluate regarding abdominal pain. When I ask him about the abdominal pain now, he notes that he has had return of pain for a month or 2 but over the last 2 weeks has increased. He describes intermittent
episodes of pain approximately 3 times a day upwards of 20 minutes with each episode but may not be that long. Pain resolved spontaneously. Pain is not related to food intake. No food fear or weight loss.
On exam/ He is in no acute distress currently. His breathing is unlabored. His abdomen is soft, nondistended, nontender currently.
CT angiogram dated 04/27/2024 reviewed. I compared to CT scan dated 12/07/2023. SMA stent appears widely patent. Just distal to the stent there is atherosclerotic plaque disease in the SMA. But there is no obvious stenosis.
Plan/intermittent abdominal pain, unrelated to food/eating. Patient notes it may be somewhat reminiscent to his pain prior to SMA stenting. However his cross-sectional imaging fails to demonstrate any recurrent SMA stenosis. At the distal edge of
the stent is some plaque which results in some luminal irregularity. However when I look at the imaging and 3D reconstructions ([employer] 3D vessel reconstruction imaging), I do not appreciate any significant stenosis on centerline
imaging. Based on non-food or eating related pain, lack of stenosis/restenosis in the superior mesenteric artery on cross-sectional imaging, patency of the celiac artery with no significant stenosis, patency of the inferior mesenteric artery, I do
not know that his pain is ischemic in nature. Would recommend GI workup. Consideration for any other cardiac etiologies or anginal related pain that may be referring to the abdomen. If absolutely no other source is noted, could consider invasive
angiography with catheterization of the SMA, but I think the yield would be low based on my interpretation of the CT scan images.
--- NOTE | 2024-04-27 17:20 | CON.VAS ---
Consultation
Consultation Request
Date/Time Consultation Performed: 04/27/24 1700
Requesting Provider: Hospitalist
Performing Provider: Dandre Armendariz MD
Reason for Consultation: ABD pain
Medical History
-
Chief Complaint: ABD Pain
History of Present Illness:
68-year-old male with complex medical history, known to the vascular service status post SMA stent placement 11/09/2023. This was done for suspected chronic mesenteric ischemia. Patient notes at that time he had had chronic abdominal pain that was
not postprandial necessarily but intermittent. At the time immediately preceding stent placement he had progression to severe constant abdominal pain. Therefore had undergone angioplasty/stenting of his superior mesenteric artery. Patient notes
resolution of his pain following the procedure. He has had significant cardiac history with known history of CABG and subsequent stents. Was due for follow-up angiography due to ongoing anginal pain he has in his chest regularly for which she is
taking nitroglycerin daily regularly. His catheterization of the [facility] was canceled due to anemia from what I gather. Underwent coronary catheterization here. No intervention rendered at the time. Findings were unchanged
from prior catheterization. Asked to evaluate regarding abdominal pain. When I ask him about the abdominal pain now, he notes that he has had return of pain for a month or 2 but over the last 2 weeks has increased. He describes intermittent
episodes of pain approximately 3 times a day upwards of 20 minutes with each episode but may not be that long. Pain resolved spontaneously. Pain is not related to food intake. No food fear or weight loss.
Past Medical History
Past Medical History: CAD, HTN, Hypercholesterolemia, ND and Other (pilonidal cyst, pre DM, colon polyps, cirrhosis per imaging)
Past Surgical History: Cardiac (CABG), Orthopedic (right knee replacement) and Other (excision of pilonidal cyst, hernia repair, SMA stent 10/2023)
Social History
Tobacco: Former Smoker
Alcohol: Occasional
Drug: None
Allergies / Home Medications
Allergy/AdvReac Type Severity Reaction Status Date / Time
No Known Allergies Allergy Verified 04/26/24 18:00
�Medication �Instructions �Recorded �Confirmed �Type
aspirin 81 mg tablet,delayed 81 mg PO DAILY Blood Clot 11/22/20 04/26/24 History
release Prevention/Tx
clopidogrel 75 mg tablet 75 mg PO QPM Blood Clot 11/04/23 04/26/24 History
Prevention/Tx
magnesium oxide 200 mg PO TID Electrolyte Repletion 11/04/23 04/26/24 History
potassium chloride 10 mEq 20 meq PO BID@0800,1300 11/04/23 04/26/24 History
tablet,extended release Electrolyte Repletion
rosuvastatin 20 mg tablet 20 mg PO QPM High Cholesterol 11/04/23 04/26/24 History
pantoprazole 40 mg tablet,delayed 40 mg PO DAILY Gastrointestinal 12/01/23 04/26/24 History
release Issue
metoprolol succinate 50 mg 50 mg PO DAILY #60 tabs 12/09/23 04/26/24 Rx
tablet,extended release 24 hr
isosorbide mononitrate 30 mg 60 mg PO DAILY 04/26/24 04/26/24 History
tablet,extended release 24 hr
torsemide 20 mg tablet 60 mg PO BID 04/26/24 04/26/24 History
Physical Exam
Vital Signs
Temp Pulse Resp BP Pulse Ox
98.8 F 70 16 104/46 97
04/28/24 10:58 04/28/24 12:29 04/28/24 12:29 04/28/24 10:56 04/28/24 12:29
Lab Results
04/28/24 06:00
04/28/24 06:00
Troponin I < 0.012 ng/ml 04/26/24 12:57
Xnu-C-Yhakrikslue Pept 1150 pg/ml 04/27/24 04:03
Physical Exam
General: No Apparent Distress
Respiratory: Non Labored Respirations
GI: Soft, Non Tender and Non Distended
Assessment / Plan
-
Assessment/Plan: Intermittent abdominal pain, unrelated to food/eating. Patient notes it may be somewhat reminiscent to his pain prior to SMA stenting. However his cross-sectional imaging fails to demonstrate any recurrent SMA stenosis. At the
distal edge of the stent is some plaque which results in some luminal irregularity. However when I look at the imaging and 3D reconstructions ([employer] 3D vessel reconstruction imaging), I do not appreciate any significant stenosis on
centerline imaging. Based on non-food or eating related pain, lack of stenosis/restenosis in the superior mesenteric artery on cross-sectional imaging, patency of the celiac artery with no significant stenosis, patency of the inferior mesenteric
artery, I do not know that his pain is ischemic in nature. Would recommend GI workup. Consideration for any other cardiac etiologies or anginal related pain that may be referring to the abdomen. If absolutely no other source is noted, could
consider invasive angiography with catheterization of the SMA, but I think the yield would be low based on my interpretation of the CT scan images.
[2024-04-27] MEDS: CRESTOR 20 MG PO (17:52)
[2024-04-27] MEDS: PLAVIX 75 MG PO (17:52)
[2024-04-27 22:07] LABS: Hematocrit 26.9 % (39.0-52.0); Hemoglobin 9.1 g/dL (13.0-18.0)
[2024-04-28] VITALS (11 sets, daily range): BP systolic 88–106; BP diastolic 46–65; PULSE 66; O2SAT 93; BMI 28.2
--- NOTE | 2024-04-28 02:08 | PTCARENOTE ---
Pt. received at change of shift. VSS, NSR on tele. Pt. denies chest pain or abd. pain but endorses feeling some lightheadedness while sitting up in bed. BP 96/53. R groin cath site dressing dry/intact with no complications noted. Pt. instructed
to ring for assistance as needed to ambulate and verbalizes understanding. Call morales within reach.
[2024-04-28] MEDS: DILAUDID 0.5 MG IV (03:23)
[2024-04-28 03:48] LABS: % Basophils 0.5 % (0-2); % Eosinophils 3.4 % (0-6); % Immature Granulocytes 0.4 % (0-0.5); % Lymphocytes 20.1 % (20.5-51.1); % Monocytes 8.7 % (1.7-9.3); % Neutrophils 66.9 % (42.2-75.2); Absolute Eosinophils 0.2 10^3/uL (0-0.7); Absolute Lymphocytes 1.1 10^3/uL (1.2-3.4); Absolute Monocytes 0.5 10^3/uL (0.1-0.6); Absolute Neutrophils 3.8 10^3/uL (1.4-6.5); Hematocrit 26.4 % (39.0-52.0); Hemoglobin 8.9 g/dL (13.0-18.0); Mean Corp Hgb Conc. 33.7 g/dL (33.0-37.0); Mean Corpuscular Hgb 30.1 pg (27.0-31.0); Mean Corpuscular Volume 89.2 fL (80.0-94.0); Mean Platelet Volume 10.8 fL (7.4-10.4); Nucleated Red Blood Cells % 0 % (-); Platelet Count 113 10^3/uL (130-400); Red Blood Cell Count 2.96 10^6/uL (4.70-6.10); Red Cell Dist. Width 14.6 % (11.5-14.5); White Blood Cell Count 5.7 10^3/uL (4.8-10.8)
--- NOTE | 2024-04-28 03:58 | PTCARENOTE ---
Patient woke up complaining of 10/10 RLQ abd pain. Right groin cath site dry/intact with no complications noted. Vital signs obtained. BP 88/57, patient complaining of dizziness sitting up in bed. HOB lowered to 30 degrees and BP increased to
100/57. Dilaudid administered for pain per order, see MAR. Call morales within reach.
[2024-04-28 04:08] LABS: ALT (SGPT) 27 U/L (0-50); AST (SGOT) 59 U/L (17-59); Alkaline Phosphatase 142 U/L (38-126); Blood Urea Nitrogen 14 mg/dl (9-20); Calcium 8.8 mg/dl (8.4-10.2); Carbon Dioxide 30 mmol/L (22-30); Chloride 98 mmol/L (98-107); Estimated Creatinine Clearance 80 ml/min; Glucose 101 mg/dl (70-99); Potassium 4.1 mmol/L (3.5-5.1); Sodium 133 mmol/L (135-145); Total Protein 6.2 g/dl (6.3-8.2); eGFR > 60.00
[2024-04-28 04:30] LABS: IgA 1148 mg/dl (70-400)
[2024-04-28 04:43] LABS: AFP Male/Tumor Marker 2.42 ng/ml
[2024-04-28] MEDS: ProAIR HFA INHALER 2 PUFF INH ×3 (05:52→22:20)
[2024-04-28] MEDS: PROTONIX 40 MG PO (09:00)
[2024-04-28] MEDS: ASPIR LOW (ENTERIC COATED) 81 MG PO (09:00)
[2024-04-28] MEDS: MAG-TAB SR 84 MG PO ×3 (09:01→22:02)
[2024-04-28] MEDS: IMDUR (EXTENDED RELEASE) 60 MG PO (09:02)
[2024-04-28] MEDS: TOPROL XL 50 MG PO (09:02)
[2024-04-28] MEDS: DEMADEX PO (09:05)
[2024-04-28] MEDS: KCL 20 MEQ PO (09:05)
--- NOTE | 2024-04-28 09:05 | W.PN.CD ---
Today's Communication / Plan
-
Patient's cardiac catheterization revealed patent stents in the left main and circumflex with collateralization, and also chronically occluded mid RCA with collateralization.
Hgb downtrending 8.9 this AM
Cont current meds, holding torsemide for now
Cont aspirin holding clopidogrel
Impression / Plan
-
BACKGROUND: 68M premature coronary artery disease status-post CABG (in 1992 at [facility] at the age of 37; known occluded SVG to diagonal), subsequent coronary stenting (2006 & 2020; on chronic aspirin/Plavix), ischemic cardiomyopathy (previous LVEF
40-45%, now normalized), hypertension, hyperlipidemia, prediabetes, SMA stent (10/2023), and former cigarette use (quit 05/2021), presented with a chief complaint of chest pain
Cardiologists: Dr. Langford & Dr. Armijo
CAD
-CABG 1992 (age 37), PCI 2006 (mLcx & OM2), & PCI 2020 (ostial LM)
-[facility] 10/2022: attempted wiring of the LAD (75% mid LAD and 90% apical LAD stenosis), aborted secondary to severe tortuosity and pleating of the SIFUENTES graft, films reviewed by interventional cardiology at admission
-Continue ASA, Ranexa, & metoprolol succinate
-Patient's cardiac catheterization revealed patent stents in the left main and circumflex with collateralization, and also chronically occluded mid RCA with collateralization.
-The patient may have refractory anginal symptoms, but it appears to be out of proportion to what the catheterization results show.
-The patient appears to have some degree of possible superimposed non-cardiac chest pain.
-Patient appears to be medically optimized on DAPT and other current cardiac medications; unable to tolerate Ranexa previously.
BRBPR
-Can hold/discontinue Plavix, if needed due to GI bleed.
-Continue aspirin, if possible.
-GI consulted; hemoglobin currently stable.
-Would hold off on giving IV fluids appears euvolemic, holding torsemide for hypotension for now
-Vascular recommends GI w/u with last resort SMA angio
ICM, HFpEF (recovered EF)
-Echocardiogram earlier this year (12/01/2023) with LVEF of 65-70%, mild to moderate aortic regurgitation.
-He is followed at [facility] for advanced heart failure management.
-Compensated on examination (currently with decreased PO intake); continue torsemide to 20 mg daily.
Prolonged QT, chronic
HLD, on rosuvastatin
SMA stent, 10/2023
PAD
Physical Exam
Vital Signs/Labs
Vital Signs
Temp Pulse Resp BP Pulse Ox
98.5 F 68 16 93/57 97
04/28/24 07:36 04/28/24 07:38 04/28/24 07:36 04/28/24 07:38 04/28/24 08:53
04/27/24 04/28/24 04/29/24
06:59 06:59 06:59
Actual Weight 191 lb 12.835 oz 190 lb 11.198 oz
04/28/24 06:00
04/28/24 06:00
PT 15.7 Sec (11.4-14.6) H 04/26/24 12:56
INR 1.27 04/26/24 12:56
04/27/24
04:03
Vwl-D-Seurdnuxsjn Pept 1150
LAB Results
04/26/24
12:57
Troponin I < 0.012
Physical Exam
Constitutional: No acute distress
EENT: Anicteric
Cardiovascular: Rhythm & rate is regular and Pedal edema is absent
Respiratory: Respiratory effort normal and Wheeze Present
GI: Soft
Neuro/Psych: AO x 3
Data Reviewed
-
Date of Service: April 28, 2024
Medical Decision Making: Reviewed Test Results
EKG: Tracing Personally Visualized and interpreted (sr)
Echo: Report Reviewed by me
Labs: Labs Reviewed by me
--- NOTE | 2024-04-28 09:19 | W.PN.HOSP.TC ---
Today's Communication/Plan
-
Waiting GI consult for next plans
Celiac panel pending
Hold clopidogrel
Hold torsemide
Assessment / Plan
Assessment / Plan
IMPRESSION: 68 y M with history of CAD, CHF, HTN, HLP with unstable angina. Was found to have low Hgb levels on pre-cardiac catheterization blood work.
PLAN:
Unstable angina
Check troponin - Negative
EKG - Unchanged compared to prior
Cardiology consult - Nitroglycerin IV drip
Catheterization patent stents in the left main and circumflex with collateralization, and also chronically occluded mid RCA with collateralization
Angiography essentially unchanged from prior catheterization
HFpEF
Cardiology following
BNP 1150
Troponin - Negative
Cardio consult - hold torsemide
Anemia (chronic)
Possible GI blood loss (MCV on this admission 92.3)
Check Iron studies
Monitor CBC; check H&H
Transfuse if Hgb >7
GI following
Cardio consult - continue aspirin, hold clopidogrel
Abdominal pain
CT AP with stable findings; no acute issues noted
Lactic acid within normal limits
GI consult- monitor stools and hemoglobin, outpatient colonoscopy, outpatient FibroScan, pending celiac panel and alpha-fetoprotein
Vascular consult- recommends GI follow-up, if no other source, invasive angiography with SMA catheterization
HTN
Continue home meds
Hypokalemia
Continue Potassium chloride
HLP
Continue statin
GERD
Continue Pantoprazole
Full code
DVT prophylaxis SCD
Anticipated Discharge: 24 - 48 hours
Subjective/Interval History
-
Date of Service: April 28, 2024
Objective Data
-
Labs:
Laboratory Results
04/27/24 04/28/24 04/28/24
21:54 03:08 06:00
WBC 5.7 Cancelled
Hgb 9.1 L 8.9 L Cancelled
Hct 26.9 L 26.4 L Cancelled
Plt Count 113 L Cancelled
Sodium 133 L Cancelled
Potassium 4.1 Cancelled
Chloride 98 Cancelled
Carbon Dioxide 30 Cancelled
BUN 14 Cancelled
Creatinine 0.9 Cancelled
Glucose 101 H Cancelled
Calcium 8.8 Cancelled
Total Bilirubin 1.0
AST 59
ALT 27
Alkaline Phosphatase 142 H
Vital Signs:
Vital Signs
Temp Pulse Resp BP Pulse Ox
98.5 F 68 16 93/57 97
04/28/24 07:36 04/28/24 07:38 04/28/24 07:36 04/28/24 09:05 04/28/24 08:53
I&O
04/27/24 04/28/24 04/29/24
06:59 06:59 06:59
Intake Total 1530 / 1530 960 / 960
Output Total 2475 / 2475 3850 / 3850
Balance -945 / -945 -2890 / -2890
Review of Systems
-
History Source: Patient
All other systems: Reviewed and negative
Respiratory: Reports Cough
Abdomen/GI: Reports Abdominal Pain and Other (No bowel movement from 04/26, has had gas passage)
Physical Exam
-
General: Appears in Distress
HEENT: Normocephalic, Atraumatic, Moist Mucous Membranes and Anicteric
Respiratory: Clear to Auscultation and Non Labored Respirations
Cardiac: Regular Rhythm and S1/S2
GI: Soft, Nondistended and Tender
Genito-urinary: No Costovertebral Tender
Skin: Warm, Dry and IV Access / Catheter Site
Neuro: Awake, Alert, Oriented and Nonfocal/Grossly Intact
Psych: Calm
--- NOTE | 2024-04-28 10:34 | W.PN.GI.CBS2 ---
Addendum entered and electronically signed by Arti Reinoso MD 04/28/24 13:39:
I saw and examined the patient.
The REVIEW MANAGER or PA's note was reviewed and I agree with the note.
Comment: Patient continues to have intermittent abdominal pain but improved compared to before. Tolerating low-cholesterol diet. No bowel movement since admission. No rectal bleeding either with heme-negative stool on admission. Hemoglobin
stable.
Abdominal pain without any particular etiology at this time, clinically not consistent with mesenteric ischemia and radiologically patent mesenteric vasculature. Trial of Bentyl as needed for abdominal pain, will keep him on stool softeners to help
with bowel movements but also to prevent any hemorrhoidal bleeding due to pushing and straining.
Needs outpatient FibroScan for imaging showing cirrhotic appearance of the liver.
He will also need to follow-up with Dr. Cristobal as outpatient to schedule for colonoscopy to remove defiant polyps with Plavix hold
Original Note:
Today's Communication / Plan
-
tolerating some diet still with pain no pattern
discussed adding Bentyl but noted with reaction with potassium-- reviewed with nursing to call for increased pain
will add Colace daily to keep bowel moving
hbg stable 8.9, rectal bleeding may be hemorrhoid but also with some retained polyps
add preparation H
consider OP colonoscopy after Dr. Cristobal evaluation and will need Plavix hold to proceed-- message sent to office to arrange follow up
appreciate cards and vascular input
reinforced no ETOH with cirrhosis -- OP follow up serology and fibroscan
celiac pending
with anemia not too far off baseline he also has thrombocytopenia and hypoalbuminemia with changes of cirrhosis on imaging no ascites reported --prior hepatitis panel neg- will need further serology outpatient- discussed diagnosis with patient (pt
unaware of diagnosis), EGD no EV seen in 10/2023, MELD 3.0- 12
counseled on quitting ETOH and need for follow up, vaccination for hep A and B
cont diet
Assessment / Plan
-
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
2020) cath 2022 with attempted wiring LAD and aborted, ischemic CM, SMA stenosis with SMA stent 10/2023 and prior tobacco use follow with cardiology Dr. Langford and Dr. Sewell at [place]. Pt was set up for cath 04/27 at [place] for increased angina
but noted drop in hbg and increased rectal bleeding. Pt then presented to 04/26. Cath completed with patent stents with left main and circumflex with collateralization and chronic occluded mid RCA with collateralization. hbg was 9.7 on
admission. Pt with several issues and asked to see from GI. He reports drop in hbg from 13 range to 9.7 on admission though prior hbg 9-12 since October. He also report rectal bleeding. states daily bleeding in October with EGD with duodenal
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 colonoscopy was with limited colon with poor prep and multiple polyps not resected. He was due for follow up with Dr. Cristobal but with angina repeat was delayed. He admits currently
bleeding is every 3 days with red blood in bowel. He will have some days with normal stools and no blood. He also reports abdominal pain. Initially lower abdomen then right sided. Per staff also noted with chest pain in variable locations since
admission. CT angio was completed this am with stable SMA stent placed in October with patency and changes of cirrhosis and cholelithiasis with no AAA but extensive atherosclerotic calcification.
-abdominal pain
-rectal bleeding
-anemia
-cirrhosis noted in October and repeat CT 04/27
-thrombocytopenia
-hypoalbuminemia
-hyponatremia
-ETOH use
-SMA stent 10/2023
-chest pain/shortness of breath
-CAD with prior CABG and stenting on ASA and Plavix
other medical problems:
-HI
-HTN
-hypercholesterolemia
-hx GERD
-hernia repair
-prior tobacco abuse
-cholelithiasis
PLAN:
tolerating some diet still with pain no pattern
discussed adding Bentyl but noted with reaction with potassium-- reviewed with nursing to call for increased pain
will add Colace daily to keep bowel moving
hbg stable 8.9, rectal bleeding may be hemorrhoid but also with some retained polyps
add preparation H
consider OP colonoscopy after Dr. Cristobal evaluation and will need Plavix hold to proceed-- message sent to office to arrange follow up
appreciate cards and vascular input
reinforced no ETOH with cirrhosis -- OP follow up serology and fibroscan
celiac pending
with anemia not too far off baseline he also has thrombocytopenia and hypoalbuminemia with changes of cirrhosis on imaging no ascites reported --prior hepatitis panel neg- will need further serology outpatient- discussed diagnosis with patient (pt
unaware of diagnosis), EGD no EV seen in 10/2023, MELD 3.0- 12
counseled on quitting ETOH and need for follow up, vaccination for hep A and B
cont diet
Subjective
Subjective
Date of Service: April 28, 2024
tolerating diet still with some crampy pain, no cholesterol lowering diet
Objective
Data Reviewed
Laboratory Data:
Laboratory Results
04/28/24 06:00
04/28/24 06:00
Laboratory Results
PT 15.7 Sec (11.4-14.6) H 04/26/24 12:56
INR 1.27 04/26/24 12:56
Total Bilirubin 1.0 mg/dl (0.2-1.3) 04/28/24 03:08
AST 59 U/L (17-59) 04/28/24 03:08
ALT 27 U/L (0-50) 04/28/24 03:08
Alkaline Phosphatase 142 U/L (38-126) H 04/28/24 03:08
Lipase 367 U/L (23-300) H 04/26/24 12:56
Vital Signs and I&O:
Vital Signs
Temp Pulse Resp BP Pulse Ox
98.5 F 68 16 93/57 97
04/28/24 07:36 04/28/24 07:38 04/28/24 07:36 04/28/24 09:05 04/28/24 08:53
I&O
04/27/24 04/28/24 04/29/24
06:59 06:59 06:59
Intake Total 1530 / 1530 960 / 960
Output Total 2475 / 2475 3850 / 3850
Balance -945 / -945 -2890 / -2890
Physical Exam
Physical Exam
HEENT: Anicteric and Moist mucous membranes
Cardiology: Normal Sinus Rhythm
Pulmonary: Clear
GI: Soft, Non Distended and Non Tender
Extremities: No Edema
Neuro: Non Focal
--- NOTE | 2024-04-28 14:22 | W.PN.UPDATE ---
Update Note
Progress Note Update
Seen and examined by me independently in collaboration with the certified medical technician assistant.
Lab data and imaging data reviewed.
Addendum as below :
Patient currently without any anginal symptoms. Patient with complex CAD. Had no evidence of IA on this admission. Had a cardiac catheterization which showed patency of the stents and chronic CAD as before and needed no intervention. Continue
with current cardiac medication. Cardiology following.
He now has abdominal pain which is nonspecific. Not prandial. Intermittent in nature. It happened last night when he was in sleep at 3:00 lasted for 20 minutes. This time it is in the right lower quadrant area. Prior it was another abdominal
quadrants. No nausea vomiting with it. No diarrhea with it.
Today his abdomen is benign but he has some reproducible tenderness to right lower quadrant. CT angio of the abdomen pelvis shows patent SMA stent and no major obstructive pathology in the vasculature. Seen by vascular. Unclear if this is
mesenteric ischemia. Clinically not sounding like mesenteric pain. Cannot understand the reproducible tenderness in the right lower quadrant today. Does not seems to radiate from his back. He had a prior laminectomies but did not know the level.
No tenderness in the back. He does have back pain if he stands for long time.
GI input regarding abdominal pain noted. He denies being constipated. When to try Bentyl for symptomatic treatment for now and see. He had 100% of his meals so far without issues.
No further etiology is evident will discharge him home on symptomatic treatments for now and follow this as outpatient.
Lastly he is has normocytic anemia. History of intermittent rectal bleeding but none now. Suspected hemorrhoids related may be. She is heme-negative here. Check iron stores. He has associated thrombocytopenia which is also chronic. He has
cirrhotic morphology on liver CT which probably could be contributing to low plts
Would benefit hematology eval as OP.
[2024-04-28] MEDS: KCL PO ×2 (14:55→16:07)
[2024-04-28 14:59] LABS: Reticulocyte Count 1.6 % (0.4-2.8)
[2024-04-28 15:09] LABS: Iron 70 ug/dl (49-181)
[2024-04-28 15:19] LABS: Percent Saturation 18 % (20-50); Total Iron Binding Capacity 377 ug/dl (261-462)
[2024-04-28] MEDS: DEMADEX 60 MG PO (16:07)
[2024-04-28 16:12] LABS: Ferritin 27.7 ng/ml (17.9-464.0)
[2024-04-28] MEDS: CRESTOR 20 MG PO (18:25)
--- NOTE | 2024-04-28 19:19 | PTCARENOTE ---
Pt denies discomfort in his chest or abdomen but c/o SOB and cough. He reports clear sputum, 2 resp. treatments given with improvement, O2 sat 97% on room air. Demedex held this morning only for low BP per Dr. Zacarias. Pt OOB to chair and walked
with PT/OT in halls, he reports slight dizziness . Telemetry shows sinus rhythm, SBP's 93-106.
[2024-04-28] MEDS: COLACE 100 MG PO (22:02)
[2024-04-29] VITALS (9 sets, daily range): BP systolic 86–111; BP diastolic 53–64; PULSE 72; O2SAT 95; BMI 27.3
--- NOTE | 2024-04-29 02:55 | PTCARENOTE ---
Patient remains NSR on tele. No complaints of abd. or chest pain. Patient ambulated to bathroom with x1 assist and had a BM in the toilet which was not viable for heme stool test. Education provided on the importance of using the hat in the
toilet for stool in order to be able to test for blood. Patient verbalizes understanding. Can make needs known. Call morales within reach.
[2024-04-29 05:33] LABS: Hematocrit 25.6 % (39.0-52.0); Hemoglobin 8.8 g/dL (13.0-18.0); Mean Corp Hgb Conc. 34.4 g/dL (33.0-37.0); Mean Corpuscular Hgb 30.7 pg (27.0-31.0); Mean Corpuscular Volume 89.2 fL (80.0-94.0); Mean Platelet Volume 10.9 fL (7.4-10.4); Platelet Count 106 10^3/uL (130-400); Red Blood Cell Count 2.87 10^6/uL (4.70-6.10); Red Cell Dist. Width 14.6 % (11.5-14.5); White Blood Cell Count 5.5 10^3/uL (4.8-10.8)
[2024-04-29 05:59] LABS: Blood Urea Nitrogen 15 mg/dl (9-20); Calcium 8.5 mg/dl (8.4-10.2); Carbon Dioxide 29 mmol/L (22-30); Chloride 100 mmol/L (98-107); Estimated Creatinine Clearance 80 ml/min; Glucose 107 mg/dl (70-99); Potassium 3.9 mmol/L (3.5-5.1); Sodium 132 mmol/L (135-145); eGFR > 60.00
--- NOTE | 2024-04-29 07:27 | W.PN.UPDATE ---
Update Note
Progress Note Update
hb 8.8 stable this am -- pt scheduled in May for OP GI follow up. Stable from GI standpoint. will sign off call with questions.
--- NOTE | 2024-04-29 08:12 | W.PN.CD ---
Today's Communication / Plan
-
-Continue current doses of ASA, Imdur, metoprolol succinate, and rosuvastatin.
-Resume Plavix 75 mg daily.
-Continue torsemide 60 mg PO BID (home regimen).
-No further cardiac recommendations at this time; outpatient follow-up with Cardiology.
Impression / Plan
-
BACKGROUND: 68M premature coronary artery disease status-post CABG (in 1992 at [facility] at the age of 37; known occluded SVG to diagonal), subsequent coronary stenting (2006 & 2020; on chronic aspirin/Plavix), ischemic cardiomyopathy (previous LVEF
40-45%, now normalized), hypertension, hyperlipidemia, prediabetes, SMA stent (10/2023), and former cigarette use (quit 05/2021), presented with a chief complaint of chest pain
Cardiologists: Dr. Langford & Dr. Armijo
CAD
-CABG 1992 (age 37), PCI 2006 (mLcx & OM2), & PCI 2020 (ostial LM)
-[facility] 10/2022: attempted wiring of the LAD (75% mid LAD and 90% apical LAD stenosis), aborted secondary to severe tortuosity and pleating of the SIFUENTES graft, films reviewed by interventional cardiology at admission
-Patient's cardiac catheterization revealed patent stents in the left main and circumflex with collateralization, and also chronically occluded mid RCA with collateralization.
-The patient may have refractory anginal symptoms, but it appears to be out of proportion to what the catheterization results show.
-The patient appears to have some degree of possible superimposed non-cardiac chest pain.
-Patient appears to be medically optimized on DAPT and other current cardiac medications; unable to tolerate Ranexa previously.
-Continue current doses of ASA, Imdur, metoprolol succinate, and rosuvastatin.
BRBPR
-Resume Plavix 75 mg daily.
-GI consulted; hemoglobin currently stable--outpatient follow-up with GI.
Chronic ICM, HFpEF (recovered EF)
-Echocardiogram earlier this year (12/01/2023) with LVEF of 65-70%, mild to moderate aortic regurgitation.
-He is followed at [facility] for advanced heart failure management.
-Compensated on examination.
-Continue torsemide 60 mg PO BID (home regimen).
Prolonged QT, chronic
HLD, on rosuvastatin
SMA stent, 10/2023
PAD
Physical Exam
Vital Signs/Labs
Vital Signs
Temp Pulse Resp BP Pulse Ox
98.4 F 63 20 98/57 96
04/29/24 07:54 04/29/24 07:48 04/29/24 07:54 04/29/24 07:48 04/29/24 07:56
04/28/24 04/29/24 04/30/24
06:59 06:59 06:59
Actual Weight 86.5 kg 83.9 kg
04/29/24 05:18
04/29/24 05:18
PT 15.7 Sec (11.4-14.6) H 04/26/24 12:56
INR 1.27 04/26/24 12:56
04/27/24
04:03
Qig-B-Xkfjjscarzq Pept 1150
LAB Results
04/26/24
12:57
Troponin I < 0.012
Physical Exam
Constitutional: No acute distress and Comfortable
EENT: Anicteric
Cardiovascular: Rhythm & rate is regular, Pedal edema is absent, Systolic murmur absent and S1S2 is normal
Respiratory: Respiratory effort normal, Crackles Absent and Wheeze Present
GI: Soft
Neuro/Psych: AO x 3
Other: Skin (Warm, dry, intact)
Data Reviewed
-
Date of Service: April 29, 2024
EKG: Tracing Personally Visualized and interpreted (Telemetry: Sinus rhythm)
Labs: Labs Reviewed by me
[2024-04-29] MEDS: ProAIR HFA INHALER 2 PUFF INH ×2 (08:28→19:56)
--- NOTE | 2024-04-29 09:25 | W.PN.HOSP.TC ---
Addendum entered and electronically signed by Shamar Lomax MD 04/29/24 16:27:
seen and examined by me independently in collaboration with the medical claims processor.
Lab data data reviewed.
Addendum as below :
Patient without any further angina. Abdominal pain has improved. Tolerating diet.
Cleared by cardiology and GI for discharge.
PT report noted - recommends rehab but the patient has declined it. Advised to consider home therapies which he is also declining. He thinks he can independently manage but requesting stay overnight so he can get his resources set up at home
tomorrow.
DC home tomorrow if remains stable.
Original Note:
Today's Communication/Plan
-
Cardio consult - continue torsemide, resume clopidogrel, continue home meds, outpatient follow-up with cardiology
GI consult - Outpatient GI follow-up scheduled in May
Planning discharge for tomorrow
Assessment / Plan
Assessment / Plan
IMPRESSION: 68 y M with history of CAD, CHF, HTN, HLP with unstable angina. Was found to have low Hgb levels on pre-cardiac catheterization blood work. Patient is eating breakfast. No new symptoms. Is medically stable for discharge.
PLAN:
Unstable angina
Check troponin - Negative
EKG - Unchanged compared to prior
Cardiology consult - Nitroglycerin IV drip -DC'd -now resolved
Catheterization patent stents in the left main and circumflex with collateralization, and also chronically occluded mid RCA with collateralization
Angiography essentially unchanged from prior catheterization
HFpEF
Cardiology following
BNP 1150
Troponin - Negative
Cardio consult -continue torsemide 60 mg twice daily, resume clopidogrel, no further cardiac recommendations, outpatient follow-up scheduled for May
Anemia (chronic)
Possible GI blood loss (MCV on this admission 92.3)
Check Iron studies -normal
Monitor CBC; check H&H
Transfuse if Hgb >7
GI following - outpatient follow-up scheduled for May
Cardio consult - continue aspirin, resume clopidogrel
Outpatient hematology referral for chronic anemia
Abdominal pain
CT AP with stable findings; no acute issues noted
Lactic acid within normal limits
GI consult- monitor stools and hemoglobin, outpatient colonoscopy, outpatient FibroScan, pending celiac panel pending, alpha-fetoprotein negative
Vascular consult- recommends GI follow-up, if no other source, invasive angiography with SMA catheterization
Outpatient GI follow-up scheduled for May
HTN
Continue home meds
Hypokalemia
Continue Potassium chloride
HLP
Continue statin
GERD
Continue Pantoprazole
Full code
DVT prophylaxis SCD
Anticipated Discharge: Within 24 hours
Subjective/Interval History
-
Date of Service: April 29, 2024
Objective Data
-
Labs:
Laboratory Results
04/29/24
05:18
WBC 5.5
Hgb 8.8 L
Hct 25.6 L
Plt Count 106 L
Sodium 132 L
Potassium 3.9
Chloride 100
Carbon Dioxide 29
BUN 15
Creatinine 0.9
Glucose 107 H
Calcium 8.5
Vital Signs:
Vital Signs
Temp Pulse Resp BP Pulse Ox
98.4 F 68 16 98/57 97
04/29/24 07:54 04/29/24 08:30 04/29/24 08:30 04/29/24 07:48 04/29/24 08:30
I&O
04/28/24 04/29/24 04/30/24
06:59 06:59 06:59
Intake Total 960 / 960
Output Total 3850 / 3850 2425 / 2425 300 / 300
Balance -2890 / -2890 -2425 / -2425 -300 / -300
Review of Systems
-
History Source: Patient
All other systems: Reviewed and negative
Respiratory: Reports Cough
Abdomen/GI: Reports Abdominal Pain and Other (bowel movement last night)
Physical Exam
-
General: Appears in Distress
HEENT: Normocephalic, Atraumatic, Moist Mucous Membranes and Anicteric
Respiratory: Clear to Auscultation and Non Labored Respirations
Cardiac: Regular Rhythm and S1/S2
GI: Soft, Nontender and Nondistended
Genito-urinary: No Costovertebral Tender
Skin: Warm, Dry and IV Access / Catheter Site
Neuro: Awake, Alert, Oriented and Nonfocal/Grossly Intact
Psych: Calm
[2024-04-29] MEDS: DEMADEX 60 MG PO ×2 (09:41→16:25)
[2024-04-29] MEDS: MAG-TAB SR 84 MG PO ×3 (09:41→22:18)
[2024-04-29] MEDS: COLACE 100 MG PO ×2 (09:41→19:34)
[2024-04-29] MEDS: IMDUR (EXTENDED RELEASE) 60 MG PO (09:41)
[2024-04-29] MEDS: ASPIR LOW (ENTERIC COATED) 81 MG PO (09:42)
[2024-04-29] MEDS: PROTONIX 40 MG PO (09:42)
[2024-04-29] MEDS: TOPROL XL 50 MG PO (09:43)
--- NOTE | 2024-04-29 11:09 | W.DCSUMMARY ---
Discharge Summary
Discharge Data
Date of Admission: 04/26/24
Date of Discharge: 04/30/24
Total time spent discharging patient (in min): 50
-
Pending Results: No
Hospital Course
Primary diagnosis:
Unstable angina
HFpEF (with ICM)
Chronic anemia
Chronic abdominal pain
Essential hypertension
Secondary diagnosis:
Hyperlipidemia
Gastroesophageal reflux disease
68-year-old male with history of CAD status post CABG, stent x 5 (on chronic aspirin/Plavix), SMA stent, HFpEF, hypertension, former smoker. Patient was scheduled for cardiac catheterization on April 27 at [facility] but came to the ER because of low
hemoglobin level (Hgb 9.0) on preprocedure blood work. Patient had chest pain on admission which was relieved with sublingual nitroglycerin. Patient noted intermittent bright red bleeding per rectum over the past 2 months. Troponin negative. EKG
showed sinus rhythm with T wave flattening in anterior leads. Cardiac catheterization demonstrated severe triple-vessel coronary artery disease, unchanged from prior catheterization and high LV filling pressure with no aortic stenosis. During
hospitalization, he had heme-negative stools. GI consult and vascular surgery consult was requested for evaluation of patient's abdominal pain. CT abdomen pelvis angiography showed unchanged positioning of the stent within the proximal SMA with
patency of the celiac artery and inferior mesenteric artery, extensive atherosclerotic calcifications of the aorta and branching vessels, cholelithiasis, cirrhotic morphology with small volume ascites. Considering these findings and patient's
clinical findings, abdominal pain did not correlate with mesenteric ischemia. Patient had stable hemoglobin during this admission. Recommend outpatient follow-up with oncology and gastroenterology for evaluation of chronic anemia and vaccination to
hepatitis A and B.
Patient advised to abstain from alcohol. Outpatient GI consult with Dr. Cristobal for colonoscopy scheduled for May. Also needs outpatient FibroScan for management of cirrhosis and outpatient follow-up with cardiology (scheduled for May).
Patient is medically stable to be discharged home with aspirin, clopidogrel, Imdur, metoprolol, pantoprazole, rosuvastatin, torsemide, potassium chloride. No changes in home meds.
Discharge Plan
-
Patient Disposition: Home with Home Care
Discharge Diagnosis/Procedures: unstable angina, cardiac catheterization, heart failure with preserved ejection fraction, resolved ischemic cardiomyopathy, hypertension, coronary artery disease status post bypass surgery and stent
Condition: Fair
Diet: Low Cholesterol, Low Sodium and Restrict fluids to 64 oz
Activity: As tolerated
Driving Restrictions: Not until seen by your Dr
Bathing Restrictions: None
Other Services: VN and PT
Specialty Instructions: Weigh Daily- Call MD for wt gain/loss 3 lbs overnight/5 lbs in 1 week
Stand Alone Forms: DC Instructions- Cath/EP Lab
Referrals:
Rach Brunner CRNP [Specified Professional Personl] - 06/06/24 (follow up in GI office to review for colonoscopy- call office to confirm appt )
Sary Gonsales CRNP [Specified Professional Personl] - 05/27/24 11:20 am (Cardiology followup appointment)
Alida Hendricks MD [Family Provider] - in one week
Sergio Mosqueda MD [Active] -
Additional Discharge Medication Instructions: avoid all alcohol and liver toxic medications. Return for recurrent bleeding, confusion or increased abdominal distention with new diagnosis of cirrhosis of liver. Will need vaccination to hepatitis A
and B
Prescriptions:
Continued
aspirin 81 MG tablet,delayed release (DR/EC)
81 mg PO DAILY
magnesium oxide 200 mg magnesium Tablet
200 mg PO TID
potassium chloride 10 mEq Tablet Extended Release
20 meq PO BID@0800,1300
clopidogrel 75 MG tablet
75 mg PO QPM
rosuvastatin 20 MG tablet
20 mg PO QPM
pantoprazole 40 mg tablet,delayed release (DR/EC)
40 mg PO DAILY
metoprolol succinate 50 mg Tablet Extended Release 24 Hr
50 mg PO DAILY Qty: 60 0RF
torsemide 20 mg tablet
60 mg PO BID
isosorbide mononitrate 30 mg tablet extended release 24 hr
60 mg PO DAILY
Discharge Orders:
Discharge Patient (As Directed); Ordered 04/30/24
Ordered By: Rose Trinidad
Care Plan Goals
Care Plan Goals:
Problem: Readiness for enhanced knowledge related to diagnosis and treatment plan
Goal: Understand your diagnosis and treatment plan needs, including medications if applicable.
Instructions: Know your diagnosis, underlying causes and treatment plan options, including medications if applicable. Consult with your health care team to learn about your diagnosis and treatment plan, including medications if applicable.
Discharge Date and Time
Discharge Date/Time: 04/30/24 10:45
Print Language: MAORI
--- NOTE | 2024-04-29 11:16 | CM ---
CM following for DC planning needs.
Met w/ patient at bedside. Pt. feels well and is hopeful for DC soon.
Pt. has no concerns or anticipated needs.
Plan is for home, no needs.
[2024-04-29] MEDS: KCL 20 MEQ PO (12:28)
[2024-04-29] MEDS: CRESTOR 20 MG PO (16:25)
[2024-04-29] MEDS: PLAVIX 75 MG PO (16:25)
--- NOTE | 2024-04-29 17:57 | PTCARENOTE ---
Pt denies any chest or abdominal discomfort. Pt OOB in a chair and walked in halls using a walker with PT and later with RN at a very slow pace with several rest stops. Pt is weak and deconditioned and at risk to fall, precautions in place, pt
calls appropriately for assistance. See PT note. Telemetry shows sinus rhythm with PVC's, one run of 5 beat NSVT. SBP's 98-111, no dizziness reported today.
--- NOTE | 2024-04-29 21:11 | PTCARENOTE ---
Pt received start of shift, HR SR. Pt w/ no c/o CP or abdominal pain. Pt assisted to bathroom and back to bed w/ x1 assist. Hemetest positive - updated DOCTOR NATUROPATHIC Krys via TT. Pt slightly JOSE, requested PRN breathing treatment - effective, pt states
they feel less SOB. R groin site CDI, soft, no hematoma. Pt does c/o intermittent lightheadedness, but states 'it's nothing new'. Updated pt on plan of care. Informed pt to notify RN if any worsening SOB, lightheadedness, CP, or abdominal pain. Call
morales within reach.
[2024-04-30 03:19] VITALS: BP 91/61
[2024-04-30 04:11] LABS: % Basophils 0.7 % (0-2); % Eosinophils 4.1 % (0-6); % Immature Granulocytes 0.2 % (0-0.5); % Lymphocytes 18.1 % (20.5-51.1); % Neutrophils 66.9 % (42.2-75.2); Absolute Eosinophils 0.2 10^3/uL (0-0.7); Absolute Lymphocytes 1.1 10^3/uL (1.2-3.4); Absolute Monocytes 0.6 10^3/uL (0.1-0.6); Absolute Neutrophils 3.9 10^3/uL (1.4-6.5); Hematocrit 25.1 % (39.0-52.0); Hemoglobin 8.6 g/dL (13.0-18.0); Mean Corp Hgb Conc. 34.3 g/dL (33.0-37.0); Mean Corpuscular Hgb 30.6 pg (27.0-31.0); Mean Corpuscular Volume 89.3 fL (80.0-94.0); Mean Platelet Volume 11.3 fL (7.4-10.4); Nucleated Red Blood Cells % 0 % (-); Platelet Count 114 10^3/uL (130-400); Red Blood Cell Count 2.81 10^6/uL (4.70-6.10); Red Cell Dist. Width 14.6 % (11.5-14.5); White Blood Cell Count 5.8 10^3/uL (4.8-10.8)
[2024-04-30 04:14] VITALS: BMI 27.2
[2024-04-30 04:20] LABS: Blood Urea Nitrogen 16 mg/dl (9-20); Calcium 8.6 mg/dl (8.4-10.2); Carbon Dioxide 31 mmol/L (22-30); Chloride 99 mmol/L (98-107); Estimated Creatinine Clearance 72 ml/min; Glucose 114 mg/dl (70-99); Potassium 3.9 mmol/L (3.5-5.1); Sodium 134 mmol/L (135-145); eGFR > 60.00
[2024-04-30 07:22] VITALS: BP 106/63
[2024-04-30] MEDS: ASPIR LOW (ENTERIC COATED) 81 MG PO (08:02)
[2024-04-30] MEDS: KCL 20 MEQ PO (08:02)
[2024-04-30] MEDS: DEMADEX 60 MG PO (08:02)
[2024-04-30] MEDS: PROTONIX 40 MG PO (08:03)
[2024-04-30] MEDS: COLACE 100 MG PO (08:03)
[2024-04-30] MEDS: IMDUR (EXTENDED RELEASE) 60 MG PO (08:03)
[2024-04-30] MEDS: MAG-TAB SR 84 MG PO (08:03)
[2024-04-30] MEDS: TOPROL XL 50 MG PO (08:03)
[2024-04-30 08:24] LABS: Endomysial IgA Antibody Titer <1:10 (<1:10)
--- NOTE | 2024-04-30 09:27 | PTCARENOTE ---
Assumed care at 0700. Patient denies pain, some right lower abdominal tenderness, soft, bowel sounds present. Tolerated breakfast. Sitting on side of bed, getting dressing for discharge today.
--- NOTE | 2024-04-30 10:03 | W.PN.UPDATE ---
Addendum entered and electronically signed by Shamar Lomax MD 05/05/24 09:12:
Na levels noted to be in mild hyponatremia range which is chronic for him.
Original Note:
Update Note
Progress Note Update
Read, reviewed, and agree. See progress note for additional details. Time spent coordinating care, DC planning, review of DC plan of care with resident, transition of care, review of records in EMR, med rec, consults, notes, d/w consultants,
nursing, family, and CM 35 mins
Patient without any overnight events.
Denies any further chest pains or abdominal pains. Tolerating diet this morning.
He now has a ride home.
CAD with angina. Complex coronary anatomy noted but did not need any interventions on this admission. Continue with dual antiplatelet agent.
History of chronic heart failure with preserved EF-compensated.-He states his goal weight was 1 81-1 83. Today's weight is 183. He has been on same dose of torsemide 60 mg twice a day for some time now. Does not feel any dizziness. Continue with
his diuretics as well. Follow-up with cardiology as an outpatient.
Abdominal pain of unclear etiology in the middle the nature. Currently asymptomatic. Splanchnic circulation evaluation done with a CT angiogram and as well as vascular input was obtained-felt unlikely mesenteric ischemia. Continue with
symptomatic treatment.
Medically stable for discharge home today.
Patient still declines any rehab placement or home services.
--- NOTE | 2024-04-30 10:21 | W.PN.HOSP.TC ---
Today's Communication/Plan
-
Discharge home with home meds
Outpatient follow-up with GI for colonoscopy and FibroScan
Outpatient follow-up with oncology for chronic anemia
Outpatient follow-up with cardiology for catheterization
Assessment / Plan
Assessment / Plan
IMPRESSION: 68 y M with history of CAD, CHF, HTN, HLP with unstable angina. Was found to have low Hgb levels on pre-cardiac catheterization blood work. Patient is eating breakfast. No new symptoms. Is medically stable for discharge to home.
Patient declines rehab and home services.
PLAN:
Unstable angina
Check troponin - Negative
EKG - Unchanged compared to prior
Cardiology consult - Nitroglycerin IV drip -DC'd -now resolved
Catheterization patent stents in the left main and circumflex with collateralization, and also chronically occluded mid RCA with collateralization
Angiography essentially unchanged from prior catheterization
HFpEF
Cardiology following
BNP 1150
Troponin - Negative
Cardio consult -continue torsemide 60 mg twice daily, resume clopidogrel, no further cardiac recommendations, outpatient follow-up scheduled for May
Anemia (chronic)
Possible GI blood loss (MCV on this admission 92.3)
Check Iron studies -normal
Monitor CBC; check H&H
Transfuse if Hgb >7
GI following - outpatient follow-up scheduled for May
Cardio consult - continue aspirin, resume clopidogrel
Outpatient hematology referral for chronic anemia
Abdominal pain
CT AP with stable findings; no acute issues noted
Lactic acid within normal limits
GI consult- monitor stools and hemoglobin, outpatient colonoscopy, outpatient FibroScan, pending celiac panel pending, alpha-fetoprotein negative
Vascular consult- recommends GI follow-up, if no other source, invasive angiography with SMA catheterization
Outpatient GI follow-up scheduled for May
HTN
Continue home meds
Hypokalemia
Continue Potassium chloride
HLP
Continue statin
GERD
Continue Pantoprazole
Full code
DVT prophylaxis SCD
Anticipated Discharge: Today
Subjective/Interval History
-
Date of Service: April 30, 2024
Objective Data
-
Labs:
Laboratory Results
04/30/24
03:25
WBC 5.8
Hgb 8.6 L
Hct 25.1 L
Plt Count 114 L
Sodium 134 L
Potassium 3.9
Chloride 99
Carbon Dioxide 31 H
BUN 16
Creatinine 1.0
Glucose 114 H
Calcium 8.6
Vital Signs:
Vital Signs
Temp Pulse Resp BP Pulse Ox
98.6 F 69 16 106/63 96
04/30/24 07:25 04/30/24 07:22 04/30/24 07:25 04/30/24 07:22 04/30/24 07:25
I&O
04/29/24 04/30/24 05/01/24
06:59 06:59 06:59
Output Total 2425 / 2425 1700 / 1700 350 / 350
Balance -2425 / -2425 -1700 / -1700 -350 / -350
Review of Systems
-
History Source: Patient
All other systems: Reviewed and negative
Respiratory: Reports Cough
Abdomen/GI: Reports Abdominal Pain and Other (bowel movement last night)
Physical Exam
-
General: Appears in Distress
HEENT: Normocephalic, Atraumatic, Moist Mucous Membranes and Anicteric
Respiratory: Clear to Auscultation and Non Labored Respirations
Cardiac: Regular Rhythm and S1/S2
GI: Soft, Nontender and Nondistended
Genito-urinary: No Costovertebral Tender
Skin: Warm, Dry and IV Access / Catheter Site
Neuro: Awake, Alert, Oriented and Nonfocal/Grossly Intact
Psych: Calm
--- NOTE | 2024-04-30 10:42 | PTCARENOTE ---
Patient discharged to home. IV and telemetry removed. Discharge teaching completed, verbalized understanding. Patient escorted to lobby in a wheelchair, his roommate was able to drive him home
--- NOTE | 2024-05-02 11:46 | PN.CDI ---
CDI
- -
CDI:
Physician Documentation Request
Admit Date: 04/26/24 16:38
Dear Doctor Dami,
Patient admitted for anemia.
Laboratory Tests
04/27/24 04/28/24 04/29/24
04:03 03:08 05:18
Sodium 134 L 133 L 132 L
04/30/24
03:25
Sodium 134 L
Based on the above, could you clarify in the progress notes, the appropriate diagnosis, if significant, that supports the above abnormalities and additional evaluation, monitoring and/or treatment rendered:
Hyponatremia
Abnormal lab value insignificant
Other
Use of terms such as suspected, likely, concern for, or probable (associated with a specific diagnosis that is being evaluated, monitored, or treated as if it exists) are acceptable and can be coded in the inpatient setting, when documented at the
time of discharge.
Thank you,
Donna Castorena RN, BSN
CDI Specialist
Available via [place] text
Please use your independent medical judgment in providing your response.
[2024-05-04 15:04] LABS: tTG IgA Antibody 13.7 EU/ml (0-19); tTG IgG Antibody 8.9 EU/ml (0-19)
== END 2024-04-30 10:45 | disposition home or self-care (01) | DRG 287 ==
LOC: IVU 16:38
PROVIDERS: Nurse Practitioner Adult Health; Nurse Practitioner Family; Registered Nurse; Student in an Organized Health Care Education/Training Program; ADMITTING PHYSICIAN Internal Medicine; CONSULT PHYSICIAN Internal Medicine Cardiovascular Disease; CONSULT PHYSICIAN Internal Medicine Gastroenterology; CONSULT PHYSICIAN Surgery Vascular Surgery; EMERGENCY PHYSICIAN Student in an Organized Health Care Education/Training Program; FAMILY PHYSICIAN Internal Medicine
PROC: 4A023N7 Measurement of Cardiac Sampling and Pressure, Left Heart, Percutaneous Approach (ICD-10-PCS; 2024-04-26)
PROC: B2151ZZ Fluoroscopy of Left Heart using Low Osmolar Contrast (ICD-10-PCS; 2024-04-26)
PROC: B2111ZZ Fluoroscopy of Multiple Coronary Arteries using Low Osmolar Contrast (ICD-10-PCS; 2024-04-26)
DX: I25.700 Atherosclerosis of coronary artery bypass graft(s), unspecified, with unstable angina pectoris (principal); I50.32 Chronic diastolic (congestive) heart failure; K92.2 Gastrointestinal hemorrhage, unspecified; E87.1 Hypo-osmolality and hyponatremia; F17.200 Nicotine dependence, unspecified, uncomplicated; I11.0 Hypertensive heart disease with heart failure; E87.6 Hypokalemia; K21.9 Gastro-esophageal reflux disease without esophagitis; D64.9 Anemia, unspecified; G89.29 Other chronic pain
CPT/HCPCS: 74174; 80048; 80053; 80306; 82105; 82607; 82728; 82746; 82784; 83516; 83540; 83550; 83605; 83690; 83880; 84443; 84484; 85014; 85018; 85025; 85027; 85045; 85610; 86231; 86850; 86900; 86901; 93005; 93459; 94640; 97116; 97163; 97166; 97530; 99285; C1760; C1894; Q9967

== ENCOUNTER 2024-07-27 15:42 | Inpatient (IN) | payer MEDICARE, SELFPAY ==
[2024-07-27] VITALS (35 sets, daily range): BP systolic 90–134; BP diastolic 52–94; BMI 26.1; BMI 26.2
--- NOTE | 2024-07-27 07:33 | ED.GENMED ---
Addendum entered and electronically signed by Ana María Barker MD 07/27/24 11:37:
Discussed with hospitalist and after they discussed with cardiology would prefer patient to be transferred to [place] for admission. Discussed with [place] transfer team again. Patient will be admitted under the heart failure service under Dr. Menjivar
pending bed availability. At this time patient is stable for transfer to [place].
Original Note:
History of Present Illness
General
Chief Complaint: Chest Pain
Time Seen by Provider: 07/27/24 07:17
History of Present Illness
History of Present Illness:
Patient is a 68-year-old male with history of CAD status post CABG, multiple stents on aspirin Plavix, HFpEF, hypertension presenting to the emergency department chest pain. Patient states that 2 days ago he was walking in the grocery store when he
developed chest pain. He stopped and took a nitroglycerin however the symptoms did not resolve. He has been having constant midsternal chest pain now. No radiation. He has taken multiple nitroglycerin over the past few days. He did take his
aspirin as well. He called his youth care professional who told him to come to the emergency department for further evaluation. No shortness of breath diaphoresis nausea vomiting. He did notice some leg swelling bilaterally and increased his torsemide. No
hemoptysis. This does feel similar to when he needed his stents placed. Per chart review patient was seen here in April and did have a cardiac cath that showed patent stents. He did have a low hemoglobin.
Past History
Past History
ED Past Medical History: CAD, HTN and Hypercholesterolemia
ED Past Surgical History: Cardiac (According to PCP notes, patient had LHC 10/2022, attempted wiring of the LAD (75% mid LAD and 90% apical LAD stenosis), aborted secondary to severe tortuosity and bleeding of the SIFUENTES graft, on medical therapy.,
Echo o 11/2023 with LV EF of 65 to 70% mild to moderate aortic regurg. ), Orthopedic and Other (Hernia repair. Refractory angina on Renexa)
Social History
Tobacco: Smoker
Alcohol: Occasional
Drug: None
Phy Exam
Physical Exam
Physical Exam:
GENERAL: in no acute distress
HEENT: normocephalic, extraocular movements intact, moist oral mucosa
NECK: normal inspection
RESPIRATORY: no respiratory distress, clear to auscultation bilaterally
CARDIOVASCULAR: regular rate and rhythm
ABDOMEN/: soft, non-distended, non-tender to palpation, no rebound or guarding
EXTREMITIES: non-tender, mild edema bilaterally lower extremities
NEUROLOGIC: awake and alert, moves all extremities
SKIN: warm
Scores
Heart Score for Chest Pain Patients
STEMI patient?: Not applicable
Course
Orders/Labs/Results
Orders:
Orders
07/27/24 07:14
EKG [Electrocardiogram (*1)] Urgent
Reason for Study: Chest Pain
EKG- Treatment ONCE
07/27/24 07:30
CR Chest - 2 Views Urgent
Comment:
Reason For Exam: chest pain
07/27/24 07:56
Basic Metabolic Panel Urgent
Complete Blood Count/With Diff Urgent
Troponin I Urgent
07/27/24 08:06
Aspirin 325 mg PO NOW STA
Nitroglycerin Sublingual [Nitrostat (Sublingual)] 0.4 mg SL NOW STA
Abnormal Lab Results
07/27/24
07:56
RBC 3.82 L 10^6/uL
(4.70-6.10)
Hgb 11.9 L g/dL
(13.0-18.0)
Hct 34.1 L %
(39.0-52.0)
MCH 31.2 H pg
(27.0-31.0)
RDW 15.2 H %
(11.5-14.5)
MPV 11.1 H fL
(7.4-10.4)
Absolute Neuts (auto) 6.8 H 10^3/uL
(1.4-6.5)
Absolute Monos (auto) 0.7 H 10^3/uL
(0.1-0.6)
Lymphocytes % 15.4 L %
(20.5-51.1)
Carbon Dioxide 21 L mmol/L
(22-30)
Glucose 127 H mg/dl
(70-99)
07/27/24 07:56
07/27/24 07:56
Vital Signs
Initial and Last Documented VS:
Initial Vital Signs
Temp Pulse Resp BP Pulse Ox
98.2 F 69 18 118/71 100
07/27/24 07:08 07/27/24 07:08 07/27/24 07:08 07/27/24 07:08 07/27/24 07:08
Last Documented Vital Signs
Temp Pulse Resp BP Pulse Ox
98.2 F 65 21 133/72 99
07/27/24 07:08 07/27/24 09:15 07/27/24 09:15 07/27/24 09:00 07/27/24 09:00
MDM/Problems Addressed
Differential Diagnosis Includes:
Patient is a 68-year-old male with history of CAD with CABG and stent on dual antiplatelet, HFpEF, hypertension presented to the emergency department with chest pain. Vitals unremarkable and exam does show mild swelling to bilateral lower
extremities. Concern for ACS versus anemia or electrolyte derangement. Considered PE though less likely. Will check blood work. EKG per my interpretation is similar to prior. Patient will likely need admission for further evaluation. At this
time he is requesting transfer to [place] if possible. He does follow with Dr. Menjivar at [facility].
*Critical Care Note
Total Time (30-74mins, 75-104mins- exclusive of procedures): Not Applicable
Update Note
Update Note:
Blood work is unremarkable. Troponin negative. I did give patient aspirin nitroglycerin patient still having ongoing pain. He states it is 4 out of 10. I did discuss with Joshua Menjivar who recommended talking to our interventionalists given his
prior cath. Discussed with Dr. Rivera will also talk to Yasmeen Lewis and ultimately decided that patient will be admitted here for further evaluation and management with possible transfer for consideration of complex revascularization. Discussed with
hospitalist who accepted patient to their service.
ED Attending Note
-
Portions of this chart may have been created with voice recognition software.� Occasional wrong word or��sound alike� substitutions may have occurred due to the inherent limitations of voice recognition software.
Discharge Plan
Departure
Patient Disposition: Admit
Date of Disposition: 07/27/24
Time of Disposition: 10:50
Presentation/result/management discussed w/ accepting MD/DO: Hospitalist
Discharge Problem:
Chest pain
Prescriptions:
No Action
aspirin 81 MG tablet,delayed release (DR/EC)
81 mg PO DAILY
magnesium oxide 200 mg magnesium Tablet
200 mg PO TID
potassium chloride 10 mEq Tablet Extended Release
20 meq PO BID@0800,1300
rosuvastatin 20 MG tablet
20 mg PO QPM
pantoprazole 40 mg tablet,delayed release (DR/EC)
40 mg PO BID
torsemide 20 mg tablet
20 mg PO BID
isosorbide mononitrate 30 mg tablet extended release 24 hr
60 mg PO DAILY
sennosides [senna] 8.6 mg Tablet
8.6 mg PO DAILYPRN PRN (Reason: constipation)
metoprolol succinate 50 mg tablet extended release 24 hr
25 mg PO DAILY
Referrals:
Alida Hendricks MD [Family Provider] -
Interventions
Interventions:
*Risk Screen - Suicide Last Done: 07/27/24 07:08
*General Assessment Last Done: 07/27/24 07:55
*Neglect/Abuse Screening Last Done: 07/27/24 07:08
*ED COVID-19 Vaccine History Last Done: 07/27/24 07:08
ED- Cardiac Assessment Last Done: 07/27/24 08:02
Discharge Date and Time
Print Language: BELARUSIAN
[2024-07-27 08:03] LABS: % Eosinophils 1.5 % (0-6); % Immature Granulocytes 0.4 % (0-0.5); % Lymphocytes 15.4 % (20.5-51.1); % Neutrophils 73.7 % (42.2-75.2); Absolute Basophils 0.1 10^3/uL (0-0.2); Absolute Eosinophils 0.1 10^3/uL (0-0.7); Absolute Lymphocytes 1.4 10^3/uL (1.2-3.4); Absolute Monocytes 0.7 10^3/uL (0.1-0.6); Absolute Neutrophils 6.8 10^3/uL (1.4-6.5); Hematocrit 34.1 % (39.0-52.0); Hemoglobin 11.9 g/dL (13.0-18.0); Mean Corp Hgb Conc. 34.9 g/dL (33.0-37.0); Mean Corpuscular Hgb 31.2 pg (27.0-31.0); Mean Corpuscular Volume 89.3 fL (80.0-94.0); Mean Platelet Volume 11.1 fL (7.4-10.4); Nucleated Red Blood Cells % 0 % (-); Platelet Count 140 10^3/uL (130-400); Red Blood Cell Count 3.82 10^6/uL (4.70-6.10); Red Cell Dist. Width 15.2 % (11.5-14.5); White Blood Cell Count 9.3 10^3/uL (4.8-10.8)
[2024-07-27 08:14] LABS: Blood Urea Nitrogen 18 mg/dl (9-20); Calcium 8.8 mg/dl (8.4-10.2); Carbon Dioxide 21 mmol/L (22-30); Chloride 107 mmol/L (98-107); Estimated Creatinine Clearance 60 ml/min; Glucose 127 mg/dl (70-99); Potassium 4.3 mmol/L (3.5-5.1); Sodium 138 mmol/L (135-145); eGFR > 60.00
[2024-07-27] MEDS: NITROSTAT (SUBLINGUAL) 0.4 MG SL (08:20)
[2024-07-27] MEDS: ASPIRIN 325 MG PO (08:20)
[2024-07-27 08:43] LABS: Troponin I < 0.012 ng/ml
--- NOTE | 2024-07-27 14:27 | HPS.HSE ---
Family Physician
-
Family Physician: Alida Hendricks
Chief Complaint
-
Chest pain
History of Present Illness
Patient is a 68-year-old male past medical history significant for CAD, HFpEF, HTN, HLD who came to [facility] for evaluation of chest pain that started several days a go, described as midsternal, nonradiating and 'like heart is in a vice.'
Patient states that the chest pain is at rest, and with exertion and at times has woken him from his sleep. He states he has been using nitro frequently and will get relief for hours if he remains at rest but once he has minimal exertion, such as
walking, it returns and he needs another nitro tablet. He states that the chest pain is associated with shortness of breath, dizziness and becomes diaphoretic at times. Patient also claims that in past 10 days he has lost 17.5 pounds unintentionally
and does not believe it was water weight. He denies any fever, chills, cough, nausea, vomiting, constipation, diarrhea or urinary symptoms.
Medical History
Past Medical History
Past Medical History: Reports Other
Additional Past Medical History:
CAD
HFpEF
HTN
HLD
Angina
Past Surgical History: Reports Other
Additional Past Surgical History:
PCI
Cardiac bypass
SMA stent
Hernia repair
Right total knee
Social History
Tobacco: Former Smoker (quit 2020, 30 pack year hx)
Alcohol: Daily (couple of beers a day)
Drug: None
Personal: Single
Living: With Roomate
Employment: Employed (partially retired)
Family History
Family History: Not pertinent
Allergies / Home Medications
Allergies reflects when Allergies were last updated in [facility].
Home Medications with original date entered in [facility]
Allergy/Medication List:
Allergies
Allergy/AdvReac Type Severity Reaction Status Date / Time
No Known Allergies Allergy Verified 07/27/24 07:13
Home Medications
aspirin 81 mg tablet,delayed release 81 mg PO DAILY Blood Clot Prevention/Tx 11/22/20
magnesium oxide 200 mg PO TID Electrolyte Repletion 11/04/23
potassium chloride 10 mEq tablet,extended release 20 meq PO BID@0800,1300 Electrolyte Repletion 11/04/23
rosuvastatin 20 mg tablet 20 mg PO QPM High Cholesterol 11/04/23
pantoprazole 40 mg tablet,delayed release 40 mg PO BID Gastrointestinal Issue 12/01/23
isosorbide mononitrate 30 mg tablet,extended release 24 hr 60 mg PO DAILY Heart Disease/Condition 04/26/24
torsemide 20 mg tablet 20 mg PO BID Fluid Retention/Swelling 04/26/24
metoprolol succinate 50 mg tablet,extended release 24 hr 25 mg PO DAILY Heart Disease/BP 07/27/24
sennosides 8.6 mg tablet (senna) 8.6 mg PO DAILYPRN PRN constipation 07/27/24
Review of Systems
-
History Source: Patient
Constitutional: Reports No Symptoms
EENT: Reports No Symptoms
Respiratory: Reports Other (mild shortness of breath associated with chest pain)
Cardiac: Reports Chest Pain (midsternal feels like 'heart is in a vice')
Abdomen/GI: Reports No Symptoms
: Reports No Symptoms
Musculoskeletal: Reports No Symptoms
Skin: Reports No Symptoms
Neurological: Reports Dizzy and Other (diaphoretic with chest pain)
Endocrine: Reports No Symptoms
Hematologic/Lymphatic: Reports No Symptoms
Psych: Reports No Symptoms
Physical Exam
Vital Signs
Vital Signs
Temp Pulse Resp BP Pulse Ox
98.2 F 67 22 116/54 97
07/27/24 07:08 07/27/24 13:00 07/27/24 13:00 07/27/24 13:00 07/27/24 13:00
Physical Exam
General: Well Developed, Well Nourished, No Apparent Distress and Conversant
HEENT: NormoCephalic, Moist mucous membranes, Atraumatic, PERRLA, [place] Conjunctivae, Nose Appears Normal and Ears Appear Normal
Respiratory: Clear and Decreased Breath Sounds; No Wheezes, Rales, Rhonchi or Crackles
Cardiac: S1/S2, Regular Rhythm and Peripheral Edema (+1 bilateral lower extremities ); No Murmur, Rub or Gallop
GI: Soft, Non Tender, Non Distended and Normal Bowel Sounds; No Organomegaly
Rectal: Deferred by Provider
Genito-urinary: Deferred by me
Musculoskeletal: No Clubbing, No Cyanosis, No Edema and Normal Gait & Station
Skin: Warm, Dry and IV/Catheter Site; No Rash
Neuro: Awake, Alert, AO x 3, Nonfocal/grossly intact and Cranial Nerves Intact
Hematologic/Lymphatic: No Lymphadenopathy
Psych: Calm and Intact Judgment/Insight
Laboratory Results
-
07/27/24 07:56
07/27/24 07:56
Laboratory Results
Troponin I < 0.012 ng/ml 07/27/24 07:56
Data Reviewed
-
Diagnostic Radiology: Report Reviewed by me (CXR: No acute cardiopulmonary process.)
Medical Tests (Nuc Med, Echo, EKG etc): Report Reviewed by me (EKG: SINUS RHYTHM WITH PREMATURE ATRIAL COMPLEXES PROLONGED QT)
Lab Data: Labs Reviewed by me
Impression/Plan
-
IMPRESSION/PLAN:
#Angina
- chest pain for several days associated with shortness of breath, dizziness and becoming diaphoretic at times
- EKG: SINUS RHYTHM WITH PREMATURE ATRIAL COMPLEXES, PROLONGED QT
- Admit to IVU for further management awaiting transfer to [place]
- Consult Cardiology
- Troponin <0.012, trend, if positive consider heparin gtt
- Nitro gtt
#Alcohol dependency
- drinks couple beers a day
- monitor for signs of withdraw
#CAD
- Cardiology consult
- continue aspirin, rosuvastatin
#HFpEF
- Cardiology consult
- continue magnesium, metoprolol, potassium, and torsemide
- check BNP
- daily weights
#HTN
- continue metoprolol
#HLD
- continue rosuvastatin
#GERD
- continue pantoprazole
Full Code
DVT Px: Heparin Sq
--- NOTE | 2024-07-27 15:05 | W.PN.UPDATE ---
Update Note
Progress Note Update
This is an addendum to the H&P written by Romi Coulter on 07/27/2024.� Patient seen and examined independently with JUDICIAL LAW CLERK.
68-year-old male past medical history of CAD status post CABG x 5, multiple cardiac stents on aspirin, Plavix, HFpEF, mesenteric thrombosis with SMA stent, hypertension presenting with chest pain unresolved with nitroglycerin.
He was admitted here in April for unstable angina came to the emergency room for low hemoglobin of 9 associate with intermittent rectal bleeding.� He underwent cardiac catheterization showing severe triple-vessel coronary artery disease.� He had
abdominal pain and had CT abdomen pelvis angiography which showed unchanged positioning of the stent within the proximal SMA and patency of the celiac/inferior mesenteric artery.
EKG today shows sinus rhythm with PACs.� Prolonged QTc of 522 which appears chronic.� Troponin negative.� Patient with unstable angina once again.� Aspirin 325 mg and sublingual nitroglycerin was given.� Cardiology was consulted and requested
transfer to [place] for complex revascularization.� Patient was accepted for transfer to [place] under heart failure service under Dr. Menjivar but no beds available.
Trend troponins.� Will likely benefit from nitroglycerin drip for continued chest pain if blood pressure tolerates.�
Appears euvolemic. Patient has increased torsemide from 20 mg daily to BID over past few days. He lost 17 pounds in a weak and a half without changes in appetite or GI symptoms or rectal bleeding.�
[2024-07-27] MEDS: NITROGLYCERIN PREMIX 250 IV (16:00)
--- NOTE | 2024-07-27 16:32 | CON.CAR ---
Addendum entered and electronically signed by Clovis Mckeon MD 07/27/24 17:17:
I saw and examined the patient.
The PROJECT MANAGEMENT CONSULTANT's note was reviewed and I agree with the note.
Comment: Admitted for progressive angina/ACS. Now pain free. On IV NTG. Had GI bleed about 2 months ago. Sent out from bleed on ASA/Plavix but now off Plavix. Will add IV heparin to ASA for ACS and watch for recurrent GI bleeding. If bleed on
dual therapy may pose challenge to consider proceeding to a new PCI/stent. Let's see how he tolerates IV heparin and ASA. Has seen GI at [facility] since his GI bleed and had a colonoscopy.
Conservative practice of transfusion has not really included patient's with active bleeding and advanced cardiovascular disease. Hgb now 11.9, lowest 8.6 on 04/30/2024.
Could add amlodipine and increase bb as med rx options.
Original Note:
Consultation
Consultation Request
Date/Time Consultation Requested: 07/27/24 1517
Date/Time Consultation Performed: 07/27/24 1600
Requesting Provider: Krys Coulter
Performing Provider: Keyla MAYA for Dr. Mckeon
Reason for Consultation: chest discomfort
Medical History
-
Chief Complaint: chest discomfort
History of Present Illness:
68 y/o male with premature CAD s/p CABG (in 1992 at [facility] at age 37; known occluded SVG-diagonal), subsequent coronary stenting (2006 and 2020), ICM EF 40-45%- now normalized, hypertension, dyslipidemia, prediabetes, SMA stent 10/2023, and former
cigarette use (quit 05/2021), recent anemia with BRB per rectum (resolved) who is here for about 3 days of intermittent chest discomfort that feels like 'a vice'. Associated with SOB. Worse with exertion, but does not go away with rest. Nitro
resolves it and he has taken about 25 nitro tablets in the past 3 days. Currently, CP has improved on nitro drip. Otherwise, he has lost 17 lbs recently- he is not sure why because he has been eating fine. His Doctor down at [place] (cardiology
Zofia) recently stopped his Plavix. He is not sure why.
Past Medical History
Past Medical History: CAD, CHF, HTN, Hypercholesterolemia and Other (as above)
Social History
Tobacco: Former Smoker
Family History
Family History: Early CAD
Allergies / Home Medications
Allergy/AdvReac Type Severity Reaction Status Date / Time
No Known Allergies Allergy Verified 07/27/24 07:13
�Medication �Instructions �Recorded �Confirmed �Type
aspirin 81 mg tablet,delayed 81 mg PO DAILY Blood Clot 11/22/20 07/27/24 History
release Prevention/Tx
magnesium oxide 200 mg PO TID Electrolyte Repletion 11/04/23 07/27/24 History
potassium chloride 10 mEq 20 meq PO BID@0800,1300 11/04/23 07/27/24 History
tablet,extended release Electrolyte Repletion
rosuvastatin 20 mg tablet 20 mg PO QPM High Cholesterol 11/04/23 07/27/24 History
pantoprazole 40 mg tablet,delayed 40 mg PO BID Gastrointestinal Issue 12/01/23 07/27/24 History
release
isosorbide mononitrate 30 mg 60 mg PO DAILY Heart 04/26/24 07/27/24 History
tablet,extended release 24 hr Disease/Condition
torsemide 20 mg tablet 20 mg PO BID Fluid 04/26/24 07/27/24 History
Retention/Swelling
metoprolol succinate 50 mg 25 mg PO DAILY Heart Disease/BP 07/27/24 07/27/24 History
tablet,extended release 24 hr
sennosides 8.6 mg tablet (senna) 8.6 mg PO DAILYPRN PRN constipation 07/27/24 07/27/24 History
Review of Systems
-
History Source: Patient
All other systems: Negative unless noted
Respiratory: Trouble Breathing
Cardiac: Chest Pain
Physical Exam
Vital Signs
Temp Pulse Resp BP Pulse Ox
98.5 F 69 22 128/59 99
07/27/24 15:47 07/27/24 16:20 07/27/24 16:15 07/27/24 16:20 07/27/24 16:20
Lab Results
07/27/24 07:56
07/27/24 07:56
Troponin I < 0.012 ng/ml 07/27/24 07:56
Physical Exam
General: Well Developed and Well Nourished
HEENT: Normocephalic and Anicteric
Respiratory: Clear and Non Labored Respirations
Cardiac: Regular Rhythm
Musculoskeletal: Edema (mild BLE edema)
Skin: Warm and Dry
Neuro: AO x 3
Psych: Calm
Impression / Plan
-
Chest pain, concerning for unstable angina:
-trend trops and EKGs
-agree with IV nitro drip, which requires intensive monitoring
-will start heparin drip, which also requires intensive monitoring- monitor hgb to ensure stability since there was recent admission with anemia, rectal bleed. If stable over 24-48 hours, can add plavix.
-ultimate plan is [facility] transfer for complex intervention
Complex CAD with hx CABG and stenting:
-continue ASA, statin, BB
HFpEF (recovered): chronic
-does not appear overloaded to assessment
-continue torsemide and follow volume
Hx SMA stent:
-on ASA, statin
Prolonged QTC- monitor, but chronic
Data:
Echo 12/01/23: EF 65-70%, Mild concentric left ventricular hypertrophy. Mild mitral regurgitation. Mild to moderate aortic regurgitation.Estimated pulmonary artery pressure of 29 mmHg.
04/26/2024 cath: Left Main: Patent stent extending into the LCx with mild in-stent restenosis. LAD: Occluded proximally with the mid to distal vessel supplied via the SIFUENTES. There are diffuse serial high grade lesions in the mid and distal vessel that
are angiographically similar to prior catheterization. The LAD supplies L-R collaterals to the RCA via the septals. Circumflex: Large vessel giving rise to two small marginal branches and a large OM3. There is a patent stent extending from the
mid-LCx into OM3 with mild ISR. There is moderate diffuse disease in the continuation of the distal LCx that is angiographically unchanged from prior. RCA: Occluded chronically in the mid-vessel. The distal vessel is supplied via septal collaterals
from the LAD fed via the SIFUENTES.
Data Reviewed
-
EKG: Tracing Personally Visualized and interpreted (SR with PAC's)
Medical Tests (Nuc Med, Echo etc): Report Reviewed by me (cath as above, echo as above)
Labs: Labs Reviewed by me
[2024-07-27 16:59] LABS: Troponin I < 0.012 ng/ml
[2024-07-27] MEDS: HEPARIN 25000 UNITS/250 ML IV (17:13)
[2024-07-27] MEDS: HEPARIN 4000 UNITS IV (17:13)
[2024-07-27] MEDS: DEMADEX 20 MG PO (18:01)
[2024-07-27] MEDS: MAG-TAB SR 84 MG PO ×2 (18:02→23:03)
[2024-07-27] MEDS: CRESTOR 20 MG PO (18:02)
--- NOTE | 2024-07-27 18:26 | PTCARENOTE ---
Admitted pt to IVU. Tele- SR. Nitro gtt infusing at 7.5 mcg/min and Heparin gtt infusing at 950 units/hr. No c/o CP/discomfort at this time. VSS. Oriented to unit. Call carmen w/in reach.
[2024-07-27] MEDS: PROTONIX 40 MG PO (20:05)
[2024-07-27 20:14] LABS: Troponin I < 0.012 ng/ml
--- NOTE | 2024-07-27 20:31 | PTCARENOTE ---
Received patient at change of shift. Awake, alert, and oriented sitting in bed. BP 117/94, NSR 70s, 95% on room air. Heparin drip running at 950 units/hr in the left forearm and nitro drip running at 7.5 mcg/min through the right forearm. No c/o of
chest pain. Discussed care of plan. Patient verbalized understanding. Call morales within reach.
--- NOTE | 2024-07-27 21:48 | PTCARENOTE ---
Patient chest pain free. Clarified nitro order-- currently infusing at 5 mcg/min.
[2024-07-27 23:34] LABS: APTT 65.5 Sec (23.4-35.0)
[2024-07-28] VITALS (88 sets, daily range): BP systolic 70–133; BP diastolic 41–82; BMI 26.1
--- NOTE | 2024-07-28 06:22 | PTCARENOTE ---
Addendum entered by Deanna Beltran RN 07/28/24 06:40:
mcg/min
Original Note:
During morning blood draw, patient began having chest pain 6/10. Nitro was set at 5 mcg/hr. Increased by increments of 5mcg until running at 20 mcg/hr. Patient stating pain level at 2/10. BP stable at 115/71. Patient agreed to call nurse with any
additional chest pain. Call morales within reach.
[2024-07-28 06:30] LABS: Mean Corp Hgb Conc. 34.4 g/dL (33.0-37.0); Mean Corpuscular Hgb 30.6 pg (27.0-31.0); Mean Corpuscular Volume 88.9 fL (80.0-94.0); Mean Platelet Volume 11.7 fL (7.4-10.4); Platelet Count 111 10^3/uL (130-400); Red Cell Dist. Width 15.2 % (11.5-14.5); White Blood Cell Count 8.3 10^3/uL (4.8-10.8)
[2024-07-28 06:35] LABS: APTT 67.7 Sec (23.4-35.0)
--- NOTE | 2024-07-28 06:40 | PTCARENOTE ---
Patient's platelet level came back at 111,000 on 07/28. Notified So Madhav Knight (Linda).
[2024-07-28 06:44] LABS: ALT (SGPT) 22 U/L (0-50); AST (SGOT) 47 U/L (17-59); Albumin 3.2 g/dl (3.5-5.0); Alkaline Phosphatase 135 U/L (38-126); Blood Urea Nitrogen 17 mg/dl (9-20); Calcium 8.9 mg/dl (8.4-10.2); Carbon Dioxide 24 mmol/L (22-30); Chloride 106 mmol/L (98-107); Estimated Creatinine Clearance 72 ml/min; Glucose 99 mg/dl (70-99); Potassium 4.2 mmol/L (3.5-5.1); Sodium 138 mmol/L (135-145); Total Bilirubin 1.1 mg/dl (0.2-1.3); Total Protein 6.5 g/dl (6.3-8.2); eGFR > 60.00
--- NOTE | 2024-07-28 08:18 | W.PN.CD ---
Addendum entered and electronically signed by Jorje Kennedy MD 07/28/24 09:28:
68 yo male with PMH of complex CAD s/p prior CABG and stenting is admitted with ACS/unstable. He is currently chest pain free after titration of nitro drip. Exam with RRR, no murmurs, no edema. Tele: NSR. Cr 1.0.
Continue ASA 81mg, heparin drip, nitro drip.
He awaiting transfer to [facility] for evaluation for complex intervention.
Addendum entered and electronically signed by ZULMA Hardy 07/28/24 08:33:
Platelets noted to be 111 this AM. yesterday were 140. However, 111 appears to be closer to his baseline this year based on previous labs.
Addendum entered and electronically signed by ZULMA Hardy 07/28/24 08:28:
will hold PO isosorbide since he is on nitro drip
Original Note:
Today's Communication / Plan
-
-continue ASA, statin, BB
-continue heparin drip and monitor for any bleeding issues
-continue nitro drip with adjustments as necessary
-await bed at [place]
Impression / Plan
-
68 y/o male with premature CAD s/p CABG (in 1992 at [facility] at age 37; known occluded SVG-diagonal), subsequent coronary stenting (2006 and 2020), ICM EF 40-45%- now normalized, hypertension, dyslipidemia, prediabetes, SMA stent 10/2023, and former
cigarette use (quit 05/2021), recent anemia with BRB per rectum (resolved, and afterward had colonoscopy at [place] with tubular adenomas) who is here for about 3 days of intermittent chest discomfort that feels like 'a vice'. Associated with SOB. Worse
with exertion, but does not go away with rest. Nitro resolves it and he has taken about 25 nitro tablets in the past 3 days. Currently, CP has improved on nitro drip. Otherwise, he has lost 17 lbs recently- he is not sure why because he has been
eating fine. His Doctor down at [place] (cardiology Dr. Armijo) recently stopped his Plavix. He is not sure why.
Chest pain, concerning for unstable angina:
-this diagnosis is threat to life
-improved on nitro drip. Mostly no CP overnight, but did have some around 630 AM, which resolved with increased drip and O2 by NC.
-trops and EKG's stable
-continue nitro drip, which requires intensive monitoring
-continue heparin drip, which requires intensive monitoring- monitor hgb to ensure stability since there was recent admission with anemia, rectal bleed. If stable over 24-48 hours, can add plavix.
-ultimate plan is [place] transfer for complex intervention- awaiting bed- discussed with nursing- last update was around 3 AM and no bed yet
-Could add amlodipine and increase bb as med rx options.
Complex CAD with hx CABG and stenting:
-continue ASA, statin, BB, nitro drip
HFpEF (recovered): chronic
-does not appear overloaded to assessment
-continue torsemide and follow volume
Hx SMA stent:
-on ASA, statin
Prolonged QTC- monitor, but chronic and stable
Data:
Echo 12/01/23: EF 65-70%, Mild concentric left ventricular hypertrophy. Mild mitral regurgitation. Mild to moderate aortic regurgitation.Estimated pulmonary artery pressure of 29 mmHg.
04/26/2024 cath: Left Main: Patent stent extending into the LCx with mild in-stent restenosis. LAD: Occluded proximally with the mid to distal vessel supplied via the SIFUENTES. There are diffuse serial high grade lesions in the mid and distal vessel that
are angiographically similar to prior catheterization. The LAD supplies L-R collaterals to the RCA via the septals. Circumflex: Large vessel giving rise to two small marginal branches and a large OM3. There is a patent stent extending from the
mid-LCx into OM3 with mild ISR. There is moderate diffuse disease in the continuation of the distal LCx that is angiographically unchanged from prior. RCA: Occluded chronically in the mid-vessel. The distal vessel is supplied via septal collaterals
from the LAD fed via the SIFUENTES.
Physical Exam
Vital Signs/Labs
Vital Signs
Temp Pulse Resp BP Pulse Ox
98.3 F 69 20 115/71 100
07/28/24 07:31 07/28/24 06:15 07/28/24 07:31 07/28/24 06:15 07/28/24 07:31
07/27/24 07/28/24 07/29/24
06:59 06:59 06:59
Actual Weight 80.1 kg
07/28/24 06:02
07/28/24 06:02
APTT 67.7 Sec (23.4-35.0) H 07/28/24 06:02
Magnesium 2.0 mg/dl (1.6-2.3) 07/28/24 06:02
LAB Results
07/27/24 07/27/24 07/27/24
07:56 16:24 17:41
Troponin I < 0.012 < 0.012 Cancelled
07/27/24 07/27/24
19:40 23:41
Troponin I < 0.012 Cancelled
Physical Exam
Constitutional: No acute distress
EENT: Anicteric
Cardiovascular: Rhythm & rate is regular
Respiratory: Respiratory effort normal and Lungs clear to auscul.
Neuro/Psych: AO x 3
Data Reviewed
-
Date of Service: July 28, 2024
EKG: Tracing Personally Visualized and interpreted (SR with stable, but prolonged QTC) and Other (tele SR)
Labs: Labs Reviewed by me
[2024-07-28] MEDS: MAG-TAB SR 84 MG PO ×3 (08:36→20:30)
[2024-07-28] MEDS: KCL 20 MEQ PO ×2 (08:36→12:57)
[2024-07-28] MEDS: TOPROL XL 25 MG PO (08:36)
[2024-07-28] MEDS: PROTONIX 40 MG PO ×2 (08:36→20:29)
[2024-07-28] MEDS: ASPIR LOW (ENTERIC COATED) 81 MG PO (08:36)
[2024-07-28] MEDS: DEMADEX 20 MG PO ×2 (08:36→16:16)
[2024-07-28 10:19] LABS: Glycohemoglobin (HgbA1c) 5.3 % (4.0-5.6)
--- NOTE | 2024-07-28 10:30 | W.PN.HOSP.TC ---
Today's Communication/Plan
-
Continue IV nitroglycerin and heparin.
Continue beta-valerie.
Pending transfer to [facility]
Assessment / Plan
Assessment / Plan
Impression:
Chest pain with concern for unstable angina.
Complex CAD with history of CABG and stenting
Heart failure preserved EF (recovered) ischemic cardiomyopathy.
PAD
SMA stent.
History of rectal bleeding with anemia of acute blood loss
Prolonged QTc.
Plan:
Chest pain with concern for unstable angina.
Reported worsening with activity prior to presentation
ECG with no ischemia
Trend troponin.
Continue IV nitro drip
Continue IV heparin drip
Plan is to reinstate Plavix if stable hemoglobin with no evidence of hemorrhage over the next 24 to 48 hours
Complex CAD with history of CABG and stenting.
Currently on aspirin, statin, beta-valerie, nitro drip
Pending transfer to primary cardiology at [facility].
Heart failure preserved/recovered EF.
Appears to be euvolemic
Continue torsemide and follow volume status closely
History of SMA stent on aspirin and statin.
Rectal bleeding with reported colonoscopy at [facility] showed tubular polyps
Hemoglobin has been stable while on IV heparin drip
Full code
DVT prophylaxis IV heparin:
Anticipated Discharge: 24 - 48 hours
Subjective/Interval History
-
Date of Service: July 28, 2024
Objective Data
-
Labs:
Laboratory Results
07/27/24 07/28/24 07/28/24
23:11 06:02 13:00
WBC 8.3
Hgb 11.0 L
Hct 32.0 L
Plt Count 111 L D
APTT 65.5 H 67.7 H Pending
Sodium 138
Potassium 4.2
Chloride 106
Carbon Dioxide 24
BUN 17
Creatinine 1.0
Glucose 99
Calcium 8.9
Total Bilirubin 1.1
AST 47
ALT 22
Alkaline Phosphatase 135 H
Vital Signs:
Vital Signs
Temp Pulse Resp BP Pulse Ox
98.3 F 72 20 118/77 100
07/28/24 07:31 07/28/24 10:15 07/28/24 07:31 07/28/24 10:15 07/28/24 07:31
I&O
07/27/24 07/28/24 07/29/24
06:59 06:59 06:59
Output Total 1774 / 1774
Balance -1774 / -1774
Physical Exam
-
General: Appears in Distress
HEENT: Normocephalic, Atraumatic, Moist Mucous Membranes and Anicteric
Respiratory: Clear to Auscultation and Non Labored Respirations
Cardiac: Regular Rhythm and S1/S2
GI: Soft, Nontender and Nondistended
Genito-urinary: No Costovertebral Tender
Skin: Warm, Dry and IV Access / Catheter Site
Neuro: Awake, Alert, Oriented and Nonfocal/Grossly Intact
Psych: Calm
--- NOTE | 2024-07-28 12:16 | W.PN.UPDATE ---
Addendum entered and electronically signed by ZULMA Hardy 07/28/24 16:28:
Pain has recurred. Echo is fine. Next troponin is pending. Will order PRN morphine and also PRN Tylenol in the case of non-cardiac component.
Addendum entered and electronically signed by ZULMA Hardy 07/28/24 14:45:
correction to below: whose
Addendum entered and electronically signed by ZULMA Hardy 07/28/24 14:44:
I revaluated patient who's CP has improved. First trop was normal. Awaiting echo and second troponin. Discussed with nursing.
Addendum entered and electronically signed by ZULMA Hardy 07/28/24 12:53:
Discussed with Dr. Kennedy and Interventional cardiology. Will continue treat medically at this time in this patient with no EKG changes. Check trop now and in 2 hours. Await bedside echo- echo team aware. Will hold off on morphine for right now.
Original Note:
Update Note
Progress Note Update
I was updated by nursing that patient is experiencing 8/10 chest discomfort, without relief from increased nitro. Additionally, SBP about 100 mmHg so not much room to increase further. EKG similar to yesterday's. Will check echo, cycle trops, and
order PRN morphine.
--- NOTE | 2024-07-28 12:19 | PTCARENOTE ---
patient reports 8/10 chest pain. Increased nitro to 30mcg without resolution. BP 70-90s sys now. remains with 8/10 pain.EKG done and notified danny SCHAEFFER. Reporting to Dr Kennedy at this time and awaiting additional orders. will continue to monitor.
[2024-07-28 13:00] LABS: APTT 94.8 Sec (23.4-35.0)
--- NOTE | 2024-07-28 13:00 | PTCARENOTE ---
labs drawn and sent
[2024-07-28 13:11] LABS: Troponin I < 0.012 ng/ml
--- NOTE | 2024-07-28 13:31 | CM ---
CM following for DC planning needs.
Pt. known to me from prior admission.
Met w/ patient at bedside. We reviewed plan to transfer to [facility] once bed is available. Emotional support provided.
Pt. resides w/ sig. other in a private, 2 story home. He is functionally independent at baseline w/ ADLs, mobility without the use of any assisted device.
Plan to transfer to [facility] once bed avail.
CM will cont. to follow.
--- NOTE | 2024-07-28 13:35 | WOUNDNOTE ---
[facility] RN NOTE: Reviewed chart and met with patient. Patient reports bleeding area on mid back is 'many years old.' The area is shallow and friable. Patient reports the wound bleeds intermittently. Recommended patient follow up with Dermatology after
his other health concerns have been addressed. The area was cleaned and silicone border foam was applied. Sacrum and heels intact, patient sitting on side of bed and states he can ambulate with some assistance. Plan is for transfer to [place] when bed
available. ASIM Samayoa given update. Will sign off.
[2024-07-28] MEDS: HEPARIN 25000 UNITS/250 ML IV (16:40)
[2024-07-28] MEDS: MORPHINE SULFATE 2 MG IV (16:41)
[2024-07-28] MEDS: CRESTOR 20 MG PO (17:20)
[2024-07-28 17:22] LABS: Troponin I < 0.012 ng/ml
[2024-07-28 18:49] LABS: APTT 113.5 Sec (23.4-35.0)
[2024-07-29] VITALS (67 sets, daily range): BP systolic 63–131; BP diastolic 38–78
[2024-07-29 01:43] LABS: Hematocrit 29.2 % (39.0-52.0); Hemoglobin 10.1 g/dL (13.0-18.0); Mean Corp Hgb Conc. 34.6 g/dL (33.0-37.0); Mean Corpuscular Hgb 31.4 pg (27.0-31.0); Mean Corpuscular Volume 90.7 fL (80.0-94.0); Mean Platelet Volume 10.7 fL (7.4-10.4); Platelet Count 101 10^3/uL (130-400); Red Blood Cell Count 3.22 10^6/uL (4.70-6.10); Red Cell Dist. Width 15.1 % (11.5-14.5); White Blood Cell Count 8.1 10^3/uL (4.8-10.8)
[2024-07-29 01:51] LABS: APTT 96.7 Sec (23.4-35.0)
[2024-07-29 02:04] LABS: ALT (SGPT) 20 U/L (0-50); AST (SGOT) 61 U/L (17-59); Albumin 2.9 g/dl (3.5-5.0); Alkaline Phosphatase 115 U/L (38-126); Blood Urea Nitrogen 19 mg/dl (9-20); Calcium 8.6 mg/dl (8.4-10.2); Carbon Dioxide 22 mmol/L (22-30); Chloride 105 mmol/L (98-107); Estimated Creatinine Clearance 72 ml/min; Glucose 110 mg/dl (70-99); Potassium 4.3 mmol/L (3.5-5.1); Sodium 138 mmol/L (135-145); Total Bilirubin 0.9 mg/dl (0.2-1.3); Total Protein 6.1 g/dl (6.3-8.2); eGFR > 60.00
[2024-07-29] MEDS: MORPHINE SULFATE 2 MG IV (03:47)
--- NOTE | 2024-07-29 03:58 | PTCARENOTE ---
Nitro gtt titrated d/t pt's chest pain level and BP. Morphine IV PRN given for CP with positive result.
[2024-07-29] MEDS: KCL 20 MEQ PO ×2 (08:25→12:03)
[2024-07-29] MEDS: PROTONIX 40 MG PO ×2 (08:25→20:48)
[2024-07-29] MEDS: MAG-TAB SR 84 MG PO ×3 (08:25→20:48)
[2024-07-29] MEDS: ASPIR LOW (ENTERIC COATED) 81 MG PO (08:25)
[2024-07-29] MEDS: TOPROL XL 25 MG PO (08:26)
[2024-07-29] MEDS: DEMADEX 20 MG PO ×2 (08:29→16:26)
--- NOTE | 2024-07-29 08:40 | W.PN.CD ---
Today's Communication / Plan
-
continue nitro drip
continue heparin drip
continue beta valerie
Impression / Plan
-
68 y/o male with premature CAD s/p CABG (in 1992 at [facility] at age 37; known occluded SVG-diagonal), subsequent coronary stenting (2006 and 2020), ICM EF 40-45%- now normalized, hypertension, dyslipidemia, prediabetes, SMA stent 10/2023, and former
cigarette use (quit 05/2021), recent anemia with BRB per rectum (resolved, and afterward had colonoscopy at [place] with tubular adenomas) who is here for about 3 days of intermittent chest discomfort that feels like 'a vice.'
ACS/unstable angina:
-continue nitro drip, which requires intensive monitoring
-continue heparin drip, which requires intensive monitoring- monitor hgb to ensure stability since there was recent admission with anemia, rectal bleed. If stable over 24-48 hours, can add plavix.
-continue beta valerie
-med doses limited by BP
-ultimate plan is [facility] transfer for complex intervention--awaiting bed
Complex CAD with hx CABG and stenting:
-continue ASA, statin, BB, nitro drip
HFpEF (ICM with improved EF): chronic
-does not appear overloaded to assessment
-continue torsemide
Hx SMA stent:
-on ASA, statin
Prolonged QTC- monitor, but chronic and stable
Mild/moderate AR: stable
Data:
Echo 07/28/24: EF 55-60%, Mild concentric left ventricular hypertrophy. Mild mitral regurgitation. Mild to moderate aortic regurgitation.Estimated pulmonary artery pressure of 29 mmHg.
04/26/2024 cath: Left Main: Patent stent extending into the LCx with mild in-stent restenosis. LAD: Occluded proximally with the mid to distal vessel supplied via the SIFUENTES. There are diffuse serial high grade lesions in the mid and distal vessel that
are angiographically similar to prior catheterization. The LAD supplies L-R collaterals to the RCA via the septals. Circumflex: Large vessel giving rise to two small marginal branches and a large OM3. There is a patent stent extending from the
mid-LCx into OM3 with mild ISR. There is moderate diffuse disease in the continuation of the distal LCx that is angiographically unchanged from prior. RCA: Occluded chronically in the mid-vessel. The distal vessel is supplied via septal collaterals
from the LAD fed via the SIFUENTES.
Physical Exam
Vital Signs/Labs
Vital Signs
Temp Pulse Resp BP Pulse Ox
98.1 F 62 20 91/61 100
07/29/24 07:47 07/29/24 03:15 07/29/24 07:47 07/29/24 03:15 07/29/24 07:47
07/28/24 07/29/24 07/30/24
06:59 06:59 06:59
Actual Weight 80.1 kg
07/29/24 01:32
07/29/24 01:32
APTT 96.7 Sec (23.4-35.0) H 07/29/24 01:32
Magnesium 2.0 mg/dl (1.6-2.3) 07/28/24 06:02
LAB Results
07/27/24 07/27/24 07/27/24
07:56 16:24 17:41
Troponin I < 0.012 < 0.012 Cancelled
07/27/24 07/27/24 07/28/24
19:40 23:41 12:40
Troponin I < 0.012 Cancelled < 0.012
07/28/24 07/28/24
16:49 18:30
Troponin I < 0.012 Cancelled
Physical Exam
Constitutional: No acute distress
EENT: Moist mucous membranes
Cardiovascular: Rhythm & rate is regular, Pedal edema is absent, JVD pressure is normal and Systolic murmur absent
Respiratory: Respiratory effort normal and Lungs clear to auscul.
Neuro/Psych: AO x 3
Data Reviewed
-
Date of Service: July 29, 2024
EKG: Other (Tele: SR 60s, PVC's)
Echo: Tracing Personally Visualized and interpreted
Labs: Labs Reviewed by me
--- NOTE | 2024-07-29 10:56 | CM ---
CM following for DC planning needs.
Met w/ patient at bedside. Plan is to transfer to [facility] once bed is avail.
Pt. feels well, is awaiting transfer.
Will cont. to follow.
--- NOTE | 2024-07-29 15:05 | W.PN.HOSP.TC ---
Today's Communication/Plan
-
Intermittent resting chest pain with negative cardiac markers
Continue intravenous heparin and nitroglycerin
Pending transfer to tertiary facility.
Assessment / Plan
Assessment / Plan
Impression:
Chest pain with concern for unstable angina.
Complex CAD with history of CABG and stenting
Heart failure preserved EF (recovered) ischemic cardiomyopathy.
PAD
SMA stent.
History of rectal bleeding with anemia of acute blood loss
Prolonged QTc.
Plan:
Chest pain with concern for unstable angina.
Reported worsening with activity prior to presentation
ECG with no ischemia
Trend troponin.
Continue IV nitro drip
Continue IV heparin drip
Plan is to reinstate Plavix if stable hemoglobin with no evidence of hemorrhage over the next 24 to 48 hours
Complex CAD with history of CABG and stenting.
Currently on aspirin, statin, beta-valerie, nitro drip
Pending transfer to primary cardiology at [facility].
Heart failure preserved/recovered EF.
Appears to be euvolemic
Continue torsemide and follow volume status closely
History of SMA stent on aspirin and statin.
Rectal bleeding with reported colonoscopy at [facility] showed tubular polyps
Hemoglobin has been stable while on IV heparin drip
Full code
DVT prophylaxis IV heparin:
Anticipated Discharge: Within 24 hours
Subjective/Interval History
-
Date of Service: July 29, 2024
Objective Data
-
Labs:
Laboratory Results
07/29/24
09:00
APTT 86.0 H
Vital Signs:
Vital Signs
Temp Pulse Resp BP Pulse Ox
98.4 F 81 20 99/66 95
07/29/24 11:51 07/29/24 10:45 07/29/24 11:51 07/29/24 10:34 07/29/24 11:51
I&O
07/28/24 07/29/24 07/30/24
06:59 06:59 06:59
Intake Total 646 / 646
Output Total 1774 / 1774 1350 / 1350
Balance -1775 / -1775 -704 / -704
Physical Exam
-
General: Appears in Distress
HEENT: Normocephalic, Atraumatic, Moist Mucous Membranes and Anicteric
Respiratory: Clear to Auscultation and Non Labored Respirations
Cardiac: Regular Rhythm and S1/S2
GI: Soft, Nontender and Nondistended
Genito-urinary: No Costovertebral Tender
Skin: Warm, Dry and IV Access / Catheter Site
Neuro: Awake, Alert, Oriented and Nonfocal/Grossly Intact
Psych: Calm
[2024-07-29] MEDS: CRESTOR 20 MG PO (17:30)
--- NOTE | 2024-07-29 17:44 | PTCARENOTE ---
Pt received with am with 3/10 chest discomfort that pt states comes and goes. Pt comfortable on the Nitro at 20mcg. Pt awaiting bed at [place]. Remains on 2LNC. Sat 99 - 10
--- NOTE | 2024-07-29 17:46 | SUR.OPER ---
Pt received this am with 3/0
--- NOTE | 2024-07-29 17:47 | PTCARENOTE ---
Pt received this am with 3/10 chest discomfort that pt states comes and goes. Pt seems comfortable with the Nitro at 20mcg. O2 on at 2LNC, sats 99 - 100%. Pt oob to the bathroom with assist, gait steady. Pt refused to sit oob in the chair and
prefers to stay in bed. [facility] called for pt status update. No other c/o offered.
[2024-07-29] MEDS: HEPARIN 25000 UNITS/250 ML IV (18:04)
[2024-07-29] MEDS: NITROGLYCERIN PREMIX 250 IV (20:52)
[2024-07-30] VITALS (18 sets, daily range): BP systolic 77–108; BP diastolic 45–74; BMI 26.2
[2024-07-30 04:07] LABS: Hematocrit 29.8 % (39.0-52.0); Hemoglobin 10.5 g/dL (13.0-18.0); Mean Corp Hgb Conc. 35.2 g/dL (33.0-37.0); Mean Corpuscular Hgb 32.3 pg (27.0-31.0); Mean Corpuscular Volume 91.7 fL (80.0-94.0); Mean Platelet Volume 11.6 fL (7.4-10.4); Platelet Count 107 10^3/uL (130-400); Red Blood Cell Count 3.25 10^6/uL (4.70-6.10); Red Cell Dist. Width 15.2 % (11.5-14.5); White Blood Cell Count 9.8 10^3/uL (4.8-10.8)
[2024-07-30 04:11] LABS: APTT 86.2 Sec (23.4-35.0)
--- NOTE | 2024-07-30 04:17 | PTCARENOTE ---
Addendum entered by Margarette Carrizales RN 07/30/24 06:24:
CP 5/10 BP manual 88/56. [employer] made aware. Advised to follow nitro protocol. Nitro increased to 25mcg/min
Addendum entered by Margarette Carrizales RN 07/30/24 04:58:
04:55 Pt c/o CP 8/10. BP 104/67 HR 61, Morphine IV PRN given, Nitro increased to 20mcg/min
Original Note:
Pt NSR on monitor. C/o CP 2/10. C/o dizziness after walking from the bathroom. Pt c/o blood in the stool. Small amount of red blood noted. Hgb stable.
[2024-07-30 04:21] LABS: ALT (SGPT) 22 U/L (0-50); AST (SGOT) 48 U/L (17-59); Albumin 2.8 g/dl (3.5-5.0); Alkaline Phosphatase 130 U/L (38-126); Blood Urea Nitrogen 17 mg/dl (9-20); Calcium 8.9 mg/dl (8.4-10.2); Carbon Dioxide 24 mmol/L (22-30); Chloride 105 mmol/L (98-107); Estimated Creatinine Clearance 72 ml/min; Glucose 138 mg/dl (70-99); Potassium 4.2 mmol/L (3.5-5.1); Sodium 137 mmol/L (135-145); Total Bilirubin 0.5 mg/dl (0.2-1.3); eGFR > 60.00
[2024-07-30] MEDS: MORPHINE SULFATE 2 MG IV ×2 (04:53→17:14)
--- NOTE | 2024-07-30 08:18 | PTCARENOTE ---
Assumed care. Patient eating breakfast, affect is flat. Pain in chest rating a 4 out 10. Does not appear in distress. BP 77/49, nitro gtt decreased to 20 mcg/min. Re-assessed BP after adjustment 100/59. Oxygen 2 liters NC, denies shortness of
breath. Using urinal at bedside. Heparin infusing per NOV(1050 units/hr). Call morales in reach
[2024-07-30] MEDS: TOPROL XL 25 MG PO (08:21)
[2024-07-30] MEDS: MAG-TAB SR 84 MG PO ×2 (08:21→15:24)
[2024-07-30] MEDS: DEMADEX 20 MG PO ×2 (08:21→15:24)
[2024-07-30] MEDS: KCL 20 MEQ PO ×2 (08:22→13:33)
[2024-07-30] MEDS: ASPIR LOW (ENTERIC COATED) 81 MG PO (08:22)
[2024-07-30] MEDS: PROTONIX 40 MG PO ×2 (08:22→19:43)
--- NOTE | 2024-07-30 10:08 | W.PN.CD ---
Today's Communication / Plan
-
continue nitro drip
continue heparin drip
continue beta valerie
Transfer to [facility] when bed available
Impression / Plan
-
68 y/o male with premature CAD s/p CABG (in 1992 at [facility] at age 37; known occluded SVG-diagonal), subsequent coronary stenting (2006 and 2020), ICM EF 40-45%- now normalized, hypertension, dyslipidemia, prediabetes, SMA stent 10/2023, and former
cigarette use (quit 05/2021), recent anemia with BRB per rectum (resolved, and afterward had colonoscopy at [place] with tubular adenomas) who is here for about 3 days of intermittent chest discomfort that feels like 'a vice.'
ACS/unstable angina:
-continue nitro drip, which requires intensive monitoring
-continue heparin drip, which requires intensive monitoring- monitor hgb to ensure stability since there was recent admission with anemia, rectal bleed. If stable over 24-48 hours, can add plavix.
-continue beta valerie
-med doses limited by BP
-ultimate plan is [place] transfer for complex intervention--awaiting bed
Complex CAD with hx CABG and stenting:
-continue ASA, statin, BB, nitro drip
HFpEF (ICM with improved EF): chronic
-does not appear overloaded to assessment
-continue torsemide
Hx SMA stent:
-on ASA, statin
Prolonged QTC- monitor, but chronic and stable
Mild/moderate AR: stable
Subjective: Has had some chest aches.
Data:
Echo 07/28/24: EF 55-60%, Mild concentric left ventricular hypertrophy. Mild mitral regurgitation. Mild to moderate aortic regurgitation.Estimated pulmonary artery pressure of 29 mmHg.
04/26/2024 cath: Left Main: Patent stent extending into the LCx with mild in-stent restenosis. LAD: Occluded proximally with the mid to distal vessel supplied via the SIFUENTES. There are diffuse serial high grade lesions in the mid and distal vessel that
are angiographically similar to prior catheterization. The LAD supplies L-R collaterals to the RCA via the septals. Circumflex: Large vessel giving rise to two small marginal branches and a large OM3. There is a patent stent extending from the
mid-LCx into OM3 with mild ISR. There is moderate diffuse disease in the continuation of the distal LCx that is angiographically unchanged from prior. RCA: Occluded chronically in the mid-vessel. The distal vessel is supplied via septal collaterals
from the LAD fed via the SIFUENTES.
Physical Exam
Vital Signs/Labs
Vital Signs
Temp Pulse Resp BP Pulse Ox
98.3 F 60 18 100/59 98
07/30/24 07:56 07/30/24 08:21 07/30/24 07:56 07/30/24 08:21 07/30/24 08:00
07/29/24 07/30/24 07/31/24
06:59 06:59 06:59
Actual Weight 80.4 kg
07/30/24 03:11
07/30/24 03:11
APTT 86.2 Sec (23.4-35.0) H 07/30/24 03:11
Magnesium 2.0 mg/dl (1.6-2.3) 07/28/24 06:02
LAB Results
07/27/24 07/27/24 07/27/24
16:24 17:41 19:40
Troponin I < 0.012 Cancelled < 0.012
07/27/24 07/28/24 07/28/24
23:41 12:40 16:49
Troponin I Cancelled < 0.012 < 0.012
07/28/24
18:30
Troponin I Cancelled
Physical Exam
Constitutional: No acute distress
EENT: Anicteric
Cardiovascular: Rhythm & rate is regular and Pedal edema is absent
Respiratory: Respiratory effort normal and Lungs clear to auscul.
GI: Soft and Distention absent
Data Reviewed
-
Date of Service: July 30, 2024
--- NOTE | 2024-07-30 13:05 | W.PN.HOSP.TC ---
Today's Communication/Plan
-
Nitro gtt
Hep gtt
Transfer to [facility]
Assessment / Plan
Assessment / Plan
Physical Exam
NAD, resting comfortably in bed
Scleral anicteric
Moist mucous membranes
No JVD
CTA bilateral
Normal S1-S2 no murmurs
Soft nontender nondistended bowel sounds active
No peripheral pitting edema
Moves extremities spontaneously
AAOx3
Assessment and Plan
ACS/Unstable ANgina
-Continue nitro gtt
-Cntinue hep gtt
-Monitor on tele
-Cardiology following
-Plan for transfer to [place]
Complex CAD
-s/p Cabg
-citbubey as statin bb and nitro gtt
HFp/recEF, Chronic, NYHA ClassII, compensated
-po toresamide
Tubular adenomas
-Found during last C-scope at [place]
-While on Hep gtt follow Hgb
HTN
-Continue antihypertensives
HLD
-Continue sgtatin
Transfer to [place] when bed available
Anticipated Discharge: Within 24 hours
Subjective/Interval History
-
Date of Service: July 30, 2024
seen and examined. no new comaplaints. stil waiting for a bed at [place]
still having intermittent chest discomfort
Objective Data
-
Labs:
Laboratory Results
07/30/24
03:11
WBC 9.8
Hgb 10.5 L
Hct 29.8 L
Plt Count 107 L
APTT 86.2 H
Sodium 137
Potassium 4.2
Chloride 105
Carbon Dioxide 24
BUN 17
Creatinine 1.0
Glucose 138 H
Calcium 8.9
Total Bilirubin 0.5
AST 48
ALT 22
Alkaline Phosphatase 130 H
Vital Signs:
Vital Signs
Temp Pulse Resp BP Pulse Ox
98.3 F 60 18 100/59 98
07/30/24 12:54 07/30/24 08:21 07/30/24 12:54 07/30/24 08:21 07/30/24 12:54
I&O
07/29/24 07/30/24 07/31/24
06:59 06:59 06:59
Intake Total 646 / 646
Output Total 1350 / 1350 1350 / 1350 1000 / 1000
Balance -704 / -704 -1350 / -1350 -1000 / -1000
[2024-07-30] MEDS: HEPARIN 25000 UNITS/250 ML IV (15:48)
--- NOTE | 2024-07-30 17:24 | PTCARENOTE ---
Patient setting on side of bed, 8 out 10 chest pain, morphine given, mildly anxious, BP 88/50 after morphine, HR 59, pain is subsiding.
[2024-07-30] MEDS: CRESTOR 20 MG PO (17:35)
--- NOTE | 2024-07-30 19:28 | PTCARENOTE ---
Called report to Sakshi at [facility]. [phone]
[2024-07-30] MEDS: TYLENOL 650 MG PO (20:54)
--- NOTE | 2024-07-30 22:26 | PTCARENOTE ---
Received patient at change of shift. SR on the monitor, HR in the 60s. VSS. Nitro and heparin running as per protocol, see documentation. Pt 100% on 2L. Dayshift nurse called report to [facility]. Informed pt of transfer. Pt belongings from room packed
up. Report to EMS crew given. Transfer completed.
--- NOTE | 2024-07-31 14:14 | W.DCSUMMARY ---
Addendum entered and electronically signed by Matti Thompson MD 07/31/24 14:46:
discharge date 07/30/2024 at night
Original Note:
Discharge Summary
Discharge Data
Date of Admission: 07/27/24
Date of Discharge: 07/31/24
-
Pending Results: No
Hospital Course
68 male history of CAD HFpEF hypertension hyperlipidemia who presented with chest discomfort that had been ongoing for several days, stated felt like his heart was in a vice. EKG demonstrated PACs QTc 522 troponin negative. Cardiology consulted
recommended transfer to [place] for complex revascularization and was admitted under heart failure service with Dr. Menjivar. In the interim he was started on a heparin drip nitro drip and treated as a unstable angina.
Assessment and Plan
ACS/Unstable ANgina
-Continue nitro gtt
-Cntinue hep gtt
-Monitor on tele
-Cardiology following
-Plan for transfer to [place]
Complex CAD
-s/p Cabg
-citbubey as statin bb and nitro gtt
HFp/recEF, Chronic, NYHA ClassII, compensated
-po toresamide
Tubular adenomas
-Found during last C-scope at [place]
-While on Hep gtt follow Hgb
HTN
-Continue antihypertensives
HLD
-Continue sgtatin
Transfer to [place] when bed available
Discharge Plan
-
Patient Disposition: Acute Care Hospital
Discharge Orders:
Discharge Patient (As Directed); Ordered 07/30/24
Ordered By: Gill Knight (Linda)
Discharge Date and Time
Discharge Date/Time: 07/30/24 22:00
Print Language: ARABIC
== END 2024-07-30 22:00 | disposition short-term general hospital (02) | DRG 303 ==
LOC: IVU 15:42
PROVIDERS: Internal Medicine; Nurse Practitioner; Nurse Practitioner Family; ADMITTING PHYSICIAN Hospitalist; ATTENDING PHYSICIAN Hospitalist; CONSULT PHYSICIAN Internal Medicine Cardiovascular Disease; EMERGENCY PHYSICIAN Student in an Organized Health Care Education/Training Program; FAMILY PHYSICIAN Internal Medicine
DX: I25.110 Atherosclerotic heart disease of native coronary artery with unstable angina pectoris (principal); I25.700 Atherosclerosis of coronary artery bypass graft(s), unspecified, with unstable angina pectoris; I50.32 Chronic diastolic (congestive) heart failure; F17.200 Nicotine dependence, unspecified, uncomplicated; I25.112 Atherosclerotic heart disease of native coronary artery with refractory angina pectoris; I11.0 Hypertensive heart disease with heart failure; E78.00 Pure hypercholesterolemia, unspecified
CPT/HCPCS: 71046; 80048; 80053; 83036; 83735; 84484; 85025; 85027; 85730; 93005; 93306; 96365; 96375; 99285

== ENCOUNTER → 2024-09-01 08:30 | Emergency (ER) | payer MEDICARE, SELFPAY ==
[2024-09-01 08:32] VITALS: BP 137/75
--- NOTE | 2024-09-01 08:52 | ED.GENMED ---
History of Present Illness
General
Chief Complaint: Rectal Bleeding
Source: patient
Exam Limitations: none
Time Seen by Provider: 09/01/24 08:37
History of Present Illness
History of Present Illness:
68-year-old male with history of CHF, coronary artery disease, SMA ischemia presents with worsening lower abdominal pain over the past week. The pain is worse with eating and coughing. He notes he feels weak and dizzy. He fell because of his
weakness and dizzy and woke up on the floor. He denies any urinary symptoms but occasionally notes blood in his stool. He denies fever or chest pain. No shortness of breath. In October of this year he was found to have evidence of chronic
mesenteric ischemia. He had a stent placed in his SMA. This pain that he has now reminds him of the pain he had in the past.
Past History
Past History
ED Past Medical History: CAD, HTN and Hypercholesterolemia
ED Past Surgical History: Cardiac (According to PCP notes, patient had LHC 10/2022, attempted wiring of the LAD (75% mid LAD and 90% apical LAD stenosis), aborted secondary to severe tortuosity and bleeding of the SIFUENTES graft, on medical therapy.,
Echo o 11/2023 with LV EF of 65 to 70% mild to moderate aortic regurg. ), Orthopedic and Other (Hernia repair. Refractory angina on Renexa)
Social History
Tobacco: Smoker
Alcohol: Occasional
Drug: None
Phy Exam
Physical Exam
Physical Exam:
General: Slightly unkempt male no acute respiratory distress HEENT: Normocephalic atraumatic
Heart: Regular rate and rhythm
Lungs: Clear no wheeze
Abdomen slightly firm mild guarding tender diffusely more so on the right side of the abdomen
Extremities: No cyanosis or edema
Skin is warm no rash
Course
Orders/Labs/Results
Orders:
Orders
09/01/24 08:49
CT Angio Abd/Pelvis w/wo IV [CT Abd/pelvis Angio W/wo Iv] Urgent
Comment:
Reason For Exam: abdominal pain, history of SMA ischemia
09/01/24 08:50
Electrocardiogram (*1) Urgent
Reason for Study: Vertigo / Dizzy
CT Head W/o Iv Contrast Urgent
Comment:
Reason For Exam: fall, dizzy
EKG- Treatment ONCE
09/01/24 09:59
Complete Blood Count/With Diff Urgent
Comprehensive Metabolic Panel Urgent
Lactic Acid Q4H
Comment: CANCEL 2nd LACTIC ACID IF 1st LACTIC ACID IS LESS THAN 2
Abnormal Lab Results
09/01/24
09:59
RBC 3.78 L 10^6/uL
(4.70-6.10)
Hgb 12.7 L g/dL
(13.0-18.0)
Hct 36.7 L %
(39.0-52.0)
MCV 97.1 H fL
(80.0-94.0)
MCH 33.6 H pg
(27.0-31.0)
RDW 15.9 H %
(11.5-14.5)
Plt Count 111 L 10^3/uL
(130-400)
MPV 10.5 H fL
(7.4-10.4)
Absolute Monos (auto) 0.7 H 10^3/uL
(0.1-0.6)
Lymphocytes % 17.5 L %
(20.5-51.1)
BUN 22 H mg/dl
(9-20)
Glucose 107 H mg/dl
(70-99)
Alkaline Phosphatase 150 H U/L
(38-126)
Albumin 3.4 L g/dl
(3.5-5.0)
09/01/24 09:59
09/01/24 09:59
Vital Signs
Initial and Last Documented VS:
Initial Vital Signs
Temp Pulse Resp BP Pulse Ox
97.6 F 70 16 137/75 99
09/01/24 08:32 09/01/24 08:32 09/01/24 08:32 09/01/24 08:32 09/01/24 08:32
Last Documented Vital Signs
Temp Pulse Resp BP Pulse Ox
97.6 F 64 18 122/71 100
09/01/24 08:32 09/01/24 12:40 09/01/24 12:40 09/01/24 13:00 09/01/24 13:00
MDM/Problems Addressed
Differential Diagnosis Includes:
Patient with significant and worsening abdominal pain. Known history of SMA stenting. Question ischemic bowel versus colitis versus traumatic injury from fall [address] angio of the abdomen and pelvis with and without pending. Patient also
notes dizziness and unsteadiness after a fall, order CT of head. Check labs and EKG.
*Critical Care Note
Total Time (30-74mins, 75-104mins- exclusive of procedures): Not Applicable
Update Note
Update Note:
Workup here shows no acute finding. CT angio of the abdomen shows chronic occlusions within the vasculature but nothing is new. No sign of colitis lactic acid normal CT head negative. Patient has acute on chronic abdominal pain. No indication
for admission. Will recommend he follow-up with vascular specialist. Stable for discharge
ED Attending Note
-
Portions of this chart may have been created with voice recognition software.� Occasional wrong word or��sound alike� substitutions may have occurred due to the inherent limitations of voice recognition software.
Discharge Plan
Departure
Patient Disposition: Home (Routine Discharge)
Date of Disposition: 09/01/24
Time of Disposition: 14:05
Patient with high blood pressure during this ER visit?: No
Discharge Problem:
Abdominal pain
Instructions: Abdominal Pain
Prescriptions:
No Action
aspirin 81 MG tablet,delayed release (DR/EC)
81 mg PO DAILY
rosuvastatin 20 MG tablet
20 mg PO BID
pantoprazole 40 mg tablet,delayed release (DR/EC)
40 mg PO BID
torsemide 20 mg tablet
40 mg PO BID
isosorbide mononitrate 30 mg tablet extended release 24 hr
90 mg PO DAILY
carvedilol [Coreg] 3.125 mg Tablet
3.125 mg PO BID
gabapentin 100 mg Capsule
100 mg PO BID
potassium chloride 20 mEq Tablet Extended Release
20 meq PO BID
Referrals:
Leatha Koch MD [Active] -
Alida Hendricks MD [Family Provider] -
Activity Restrictions/Additional Instructions:
Continue current medication regimen. Please return here for worsening symptoms otherwise follow-up with your vascular doctor
Interventions
Interventions:
*Risk Screen - Suicide Last Done: 09/01/24 08:32
*General Assessment Last Done: 09/01/24 08:32
*Neglect/Abuse Screening Last Done: 09/01/24 08:32
*ED COVID-19 Vaccine History Last Done: 09/01/24 08:32
Discharge Date and Time
Print Language: ITALIAN
[2024-09-01 10:18] LABS: % Basophils 0.7 % (0-2); % Eosinophils 2.1 % (0-6); % Immature Granulocytes 0.3 % (0-0.5); % Lymphocytes 17.5 % (20.5-51.1); % Monocytes 8.7 % (1.7-9.3); % Neutrophils 70.7 % (42.2-75.2); Absolute Basophils 0.1 10^3/uL (0-0.2); Absolute Eosinophils 0.2 10^3/uL (0-0.7); Absolute Lymphocytes 1.3 10^3/uL (1.2-3.4); Absolute Monocytes 0.7 10^3/uL (0.1-0.6); Absolute Neutrophils 5.4 10^3/uL (1.4-6.5); Hematocrit 36.7 % (39.0-52.0); Hemoglobin 12.7 g/dL (13.0-18.0); Mean Corp Hgb Conc. 34.6 g/dL (33.0-37.0); Mean Corpuscular Hgb 33.6 pg (27.0-31.0); Mean Corpuscular Volume 97.1 fL (80.0-94.0); Mean Platelet Volume 10.5 fL (7.4-10.4); Nucleated Red Blood Cells % 0 % (-); Platelet Count 111 10^3/uL (130-400); Red Blood Cell Count 3.78 10^6/uL (4.70-6.10); Red Cell Dist. Width 15.9 % (11.5-14.5); White Blood Cell Count 7.7 10^3/uL (4.8-10.8)
[2024-09-01 10:25] LABS: Lactic Acid 1.1 mmol/L (0.7-2.0)
[2024-09-01 10:32] LABS: ALT (SGPT) 22 U/L (0-50); AST (SGOT) 38 U/L (17-59); Albumin 3.4 g/dl (3.5-5.0); Alkaline Phosphatase 150 U/L (38-126); Blood Urea Nitrogen 22 mg/dl (9-20); Calcium 8.7 mg/dl (8.4-10.2); Carbon Dioxide 24 mmol/L (22-30); Chloride 105 mmol/L (98-107); Glucose 107 mg/dl (70-99); Potassium 3.9 mmol/L (3.5-5.1); Sodium 137 mmol/L (135-145); Total Bilirubin 1.2 mg/dl (0.2-1.3); Total Protein 6.9 g/dl (6.3-8.2); eGFR > 60.00
[2024-09-01 12:33] VITALS: BP 120/63
[2024-09-01 13:00] VITALS: BP 122/71
== END | disposition home or self-care (01) ==
LOC: EMR 08:30
PROVIDERS: Physician Assistant; EMERGENCY PHYSICIAN Emergency Medicine; FAMILY PHYSICIAN Internal Medicine
DX: K62.5 Hemorrhage of anus and rectum (principal); I11.0 Hypertensive heart disease with heart failure; I50.9 Heart failure, unspecified; I25.10 Atherosclerotic heart disease of native coronary artery without angina pectoris; E78.00 Pure hypercholesterolemia, unspecified; F17.200 Nicotine dependence, unspecified, uncomplicated
CPT/HCPCS: 99284; 70450; 74174; 80053; 83605; 85025; 93005; Q9967

== ENCOUNTER 2024-10-04 14:00 | Inpatient (IN) | payer MEDICARE, SELFPAY ==
[2024-10-04 11:54] VITALS: BP 121/107; BMI 27.0
[2024-10-04 12:45] LABS: % Basophils 0.6 % (0-2); % Eosinophils 0.4 % (0-6); % Immature Granulocytes 0.6 % (0-0.5); % Lymphocytes 11.7 % (20.5-51.1); % Monocytes 7.5 % (1.7-9.3); % Neutrophils 79.2 % (42.2-75.2); Absolute Basophils 0.1 10^3/uL (0-0.2); Absolute Immature Granulocytes 0.1 10^3/uL (0-0.05); Absolute Lymphocytes 1.1 10^3/uL (1.2-3.4); Absolute Monocytes 0.7 10^3/uL (0.1-0.6); Absolute Neutrophils 7.5 10^3/uL (1.4-6.5); Hematocrit 34.7 % (39.0-52.0); Hemoglobin 12.1 g/dL (13.0-18.0); Mean Corp Hgb Conc. 34.9 g/dL (33.0-37.0); Mean Corpuscular Hgb 34.1 pg (27.0-31.0); Mean Corpuscular Volume 97.7 fL (80.0-94.0); Mean Platelet Volume 10.2 fL (7.4-10.4); Nucleated Red Blood Cells % 0 % (-); Platelet Count 187 10^3/uL (130-400); Red Blood Cell Count 3.55 10^6/uL (4.70-6.10); White Blood Cell Count 9.5 10^3/uL (4.8-10.8)
[2024-10-04 12:59] LABS: ALT (SGPT) 20 U/L (0-50); AST (SGOT) 57 U/L (17-59); Albumin 2.8 g/dl (3.5-5.0); Alkaline Phosphatase 177 U/L (38-126); Blood Urea Nitrogen 13 mg/dl (9-20); Calcium 8.1 mg/dl (8.4-10.2); Carbon Dioxide 24 mmol/L (22-30); Chloride 97 mmol/L (98-107); Estimated Creatinine Clearance 102 ml/min; Glucose 101 mg/dl (70-99); Potassium 3.4 mmol/L (3.5-5.1); Sodium 132 mmol/L (135-145); Total Bilirubin 2.8 mg/dl (0.2-1.3); Total Protein 6.2 g/dl (6.3-8.2); eGFR > 60.00
--- NOTE | 2024-10-04 13:03 | ED.GENMED ---
History of Present Illness
General
Chief Complaint: Chest Pain
Source: patient and records
Exam Limitations: none
Time Seen by Provider: 10/04/24 12:00
Nursing documentation reviewed up to this point in time: agreed with
History of Present Illness
History of Present Illness:
68-year-old male ex-smoker CAD heart failure followed by Dr. Chaparro Cat locally Dr. Chey Menjivar at [facility]
Patient has had 2 weeks of cough congestion fever productive sputum chest pain been using 6 nitroglycerin a day no weight gain compliant with his meds, saw his PCP referred to the ER EMS was called given a nebulizer
Past History
Past History
ED Past Medical History: CAD, COPD (Ex-smoker), HTN and Hypercholesterolemia
ED Past Surgical History: Cardiac (According to PCP notes, patient had LHC 10/2022, attempted wiring of the LAD (75% mid LAD and 90% apical LAD stenosis), aborted secondary to severe tortuosity and bleeding of the SIFUENTES graft, on medical therapy.,
Echo o 11/2023 with LV EF of 65 to 70% mild to moderate aortic regurg. ), Orthopedic and Other (Hernia repair. Refractory angina on Renexa)
Social History
Tobacco: Smoker
Alcohol: Occasional
Drug: None
Personal:
Living: with family
Employment: Retired
Review of Systems
Review of Systems
All Other Systems: Not applicable
Constitutional: Reports fever, fatigue and chills
Respiratory: Reports cough and trouble breathing
Cardiac: Reports no symptoms
ABD/GI: Reports no symptoms
: Reports no symptoms
Musculoskeletal: Reports no symptoms
Skin: Reports no symptoms
Phy Exam
Physical Exam
Physical Exam:
Physical Exam
General: Dyspneic appearing male coughing
Neck: No jaw
Heart: Rate
Lungs: Wheezing rhonchi bilateral
Abdomen: Nontender
Neuro: alert and oriented. no focal neurological deficits
Skin: no rash
Psychiatric: well kept. interactive and cooperative
Extremities: 1+ edema
Scores
Heart Score for Chest Pain Patients
STEMI patient?: No
History: Slightly or Non-Suspicious
ECG: Nonspecific Repolarization
Age: >/= 65 years
Risk Factors: >/= 3 Risk Factors or History of CAD
Troponin: </= Normal Limit
Heart Score for Chest Pain Patients: 5
Heart Score Risk: 20.3% MACE over next 6 weeks
Course
Orders/Labs/Results
Orders:
Orders
10/04/24 Breakfast
Cholesterol Lowering
Cholesterol Lowering: Sodium, 2 Gram
10/04/24 11:53
Electrocardiogram (*1) Urgent
Reason for Study: Chest Pain
Cardiac Monitoring- Treatment ONCE
EKG- Treatment ONCE
IV Insert/Care/Rem.- Treatment PRN
Chest [CR Chest - 2 Views ] Urgent
Comment:
Reason For Exam: COUGH
O2 Therapy [RESP] Urgent
Titrate/Wean O2 to maintain O2 sat greater than (%): 90
Special Instructions: Maintain sats >/=90%
Pulse Ox/spot Check [RESP] Urgent
Quantity: 1
Special Instructions: ON ROOM AIR
10/04/24 11:58
Complete Blood Count/With Diff Urgent
Comprehensive Metabolic Panel Urgent
Magnesium Urgent
Comment: ADD ON
NT-proBNP Urgent
Troponin I Urgent
10/04/24 12:13
Electrocardiogram (*1) Urgent
Reason for Study: Abnormal EKG
EKG- Treatment ONCE
10/04/24 13:11
CefTRIAXone [Rocephin] 1,000 mg IV NOW STA
Dexamethasone Sod Phosphate [Decadron] 10 mg IV NOW STA
10/04/24 13:14
Albuterol Nebs [Ventolin Nebules] 2.5 mg INH R NOW STA
10/04/24 13:19
Add On- LAB Stat
Tests Added?: magnesium
Potassium Chloride 10% Elixir [KCl Elixir] 40 meq PO NOW STA
10/04/24 13:33
CT Head W/o Iv Contrast Urgent
Comment:
Reason For Exam: headache
10/04/24 13:36
Admit/Transfer Patient As Directed
Co-Sign Provider:
Level of Care: Inpatient admission
Assign to:: Medical/Surgical
Physician / Group: [facility]encion
Diagnosis: acute hypoxia
Reason for Hospitalization: acute hypoxic respiratory failure likely from pneumonia
Expected length of stay greater than two midnights?: Yes
ELOS- Estimated Length of Stay in days: 3
I certify the patient meets the requirements for IP care: Yes
10/04/24 13:37
PRN Pain Medication Management As Directed
May give lesser potent ordered pain med per pt: Yes
preference::
Protocol:: Medication orders for pain may be administered in a
manner that supports deferring to patient preference
when the pt is:
- Requesting an ordered lesser potent pain medication.
Least to most potent pain medications are defined
as: acetaminophen < NSAID < tramadol < opioids
(morphine, oxycodone, hydromorphone).
- Requesting a lesser dose of the same medication IF
ORDERED.
- Requesting a less intrusive route of administration
if both routes are prescribed by the provider (PO <
IV).
10/04/24 13:38
Code Status As Directed
Resuscitation Status: Full Code
10/04/24 13:39
COVID-19 Antigen Stat
Source: Nasal Swab
Influenza A+B Rapid Molecular Stat
HANNY Source: Nasal Swab
Specimen Description:
10/04/24 13:40
Doxycycline Hyclate [Vibramycin] 100 mg 0.9% Sodium Chloride 250 ml [Nss] 250 ml IV NOW
10/04/24 14:00
Flush (0.9% Sodium Chloride) [Flush (Nss)] See Dose Instructions IV PER PROTOCOL
10/04/24 14:51
Acetaminophen [Tylenol] 650 mg PO Q4HPRN PRN
Benzonatate [Tessalon Perles] 200 mg PO TIDPRN PRN
10/04/24 14:51
Respiratory Culture/Gram Stain Urgent
HANNY Source: Sputum
Specimen Description:
Date Specimen was Collected: 10/05/24
Time Specimen was Collected: 09:23
Activity As Directed
Activity Level: Out of Bed-Early Mobility
Intake/ Output As Directed
Frequency: Per unit guidelines
Vital Signs As Directed
Frequency: Per unit guidelines
Weight As Directed
Frequency: Once
Comment: on admission
Pt Eval And Treat Routine
Activity Level: As Tolerated
DX Deep Vein Thrombosis Video Routine
10/04/24 16:00
Torsemide [Demadex] 40 mg PO BID@0800,1600
10/04/24 17:55
Legionella Urinary Antigen Routine
HANNY Source: Urine
Specimen Description:
Strep pneumoniae Antigen Routine
HANNY Source: Urine
Specimen Description:
10/04/24 18:00
Enoxaparin Sodium [Lovenox] 40 mg SC QPM
Ipratropium/Albuterol Sulfate [Duoneb] 3 ml INH R Q4HPRN PRN
10/04/24 20:00
Carvedilol [Coreg] 6.25 mg PO BID
Gabapentin [Neurontin] 100 mg PO BID
Pantoprazole [Protonix] 40 mg PO BID
Potassium Chloride [KCl] 20 meq PO BID
Rosuvastatin Calcium [Crestor] 20 mg PO BID
10/05/24 00:00
Dexamethasone Sod Phosphate [Decadron] 4 mg IV Q12H
Doxycycline Hyclate [Vibramycin] 100 mg 0.9% Sodium Chloride 250 ml [Nss] 250 ml IV Q12H
10/05/24 06:00
Basic Metabolic Panel IN AM
10/05/24 08:00
Aspirin Low Dose EC [Aspir Low (Enteric Coated)] 81 mg PO DAILY
ISOSORBIDE MONOnitrate ER [Imdur (Extended Release)] 90 mg PO DAILY
Magnesium l-Lactate [Mag-Tab Sr] 84 mg PO DAILY
10/05/24 14:00
CefTRIAXone [Rocephin] 1,000 mg IV Q24H
10/06/24 06:00
Basic Metabolic Panel IN AM
10/07/24 06:00
Basic Metabolic Panel IN AM
Abnormal Lab Results
10/04/24
11:58
RBC 3.55 L 10^6/uL
(4.70-6.10)
Hgb 12.1 L g/dL
(13.0-18.0)
Hct 34.7 L %
(39.0-52.0)
MCV 97.7 H fL
(80.0-94.0)
MCH 34.1 H pg
(27.0-31.0)
Abs Immat Gran (auto) 0.1 H 10^3/uL
(0-0.05)
Absolute Neuts (auto) 7.5 H 10^3/uL
(1.4-6.5)
Absolute Lymphs (auto) 1.1 L 10^3/uL
(1.2-3.4)
Absolute Monos (auto) 0.7 H 10^3/uL
(0.1-0.6)
Immature Gran % 0.6 H %
(0-0.5)
Neutrophils % 79.2 H %
(42.2-75.2)
Lymphocytes % 11.7 L %
(20.5-51.1)
Sodium 132 L mmol/L
(135-145)
Potassium 3.4 L mmol/L
(3.5-5.1)
Chloride 97 L mmol/L
(98-107)
Glucose 101 H mg/dl
(70-99)
Calcium 8.1 L mg/dl
(8.4-10.2)
Total Bilirubin 2.8 H mg/dl
(0.2-1.3)
Alkaline Phosphatase 177 H U/L
(38-126)
Total Protein 6.2 L g/dl
(6.3-8.2)
Albumin 2.8 L g/dl
(3.5-5.0)
10/04/24 11:58
10/04/24 11:58
Vital Signs
Initial and Last Documented VS:
Initial Vital Signs
Temp Pulse Resp BP Pulse Ox
98.8 F 93 19 121/107 99
10/04/24 11:54 10/04/24 11:54 10/04/24 11:54 10/04/24 11:54 10/04/24 11:54
Last Documented Vital Signs
Temp Pulse Resp BP Pulse Ox
97.5 F 78 16 95/87 99
10/05/24 15:33 10/05/24 15:57 10/05/24 15:33 10/05/24 16:04 10/05/24 15:33
MDM/Problems Addressed
Differential Diagnosis Includes:
Bronchitis pneumonia heart failure doubt PE possibly ACS
MDM/Problems Addressed:
Cough shortness of breath chest pain
Chronic conditions affecting care: HTN, CAD, Cardiomyopathy and COPD
Acute Exacerbation and/or Progression of Chronic Illness: HTN, Cardiomyopathy and COPD
*Radiology
Radiology exam reviewed: preliminary read by ED provider
*Pulse Oximetry
Patient hypoxic: no
*EKG
Interpreted by ED Provider?: Yes
Interpretation: abnormal
Comparison EKG: no comparison EKG present
Heart Rate: 78
Rate: normal
Rhythm: sinus
Ischemia: non-specific ST changes
*[employer]er C[employer] Interpretation
Rate: normal
Interpretation: normal
Heart Rate: 78
Rhythm: sinus
*Critical Care Note
Total Time (30-74mins, 75-104mins- exclusive of procedures): 20
Data Reviewed
Review of Other/Old Records Reveals: Labs and Records
Source: patient
Prescriptions/Medications Considered But Not Given:
Heparin
Further Testing Considered But Not Given:
CT of the chest
Update Note
Update Note:
Update patient with a lateral chest infectious symptoms in the setting of heart failure and CAD perhaps a bit volume overloaded with a history of physical, not terribly so, plan to be chest x-ray nebs labs low threshold to admit
120, labs are noted chest x-ray noted will start antibiotics
ED Attending Note
-
Portions of this chart may have been created with voice recognition software.� Occasional wrong word or��sound alike� substitutions may have occurred due to the inherent limitations of voice recognition software.
Discharge Plan
Departure
Patient Disposition: Admit
Date of Disposition: 10/04/24
Time of Disposition: 13:19
Admit to: Telemetry
Presentation/result/management discussed w/ accepting MD/DO: Hospitalist
Patient with high blood pressure during this ER visit?: No
Condition: Fair
Covid-19: Not Applicable
Discharge Problem:
Chronic diastolic (congestive) heart failure, Pneumonia
Interventions
Interventions:
*Risk Screen - Suicide Last Done: 10/04/24 11:54
*General Assessment Last Done: 10/04/24 11:54
*Neglect/Abuse Screening Last Done: 10/04/24 11:54
ED- Fall Risk Assessment Last Done: 10/04/24 12:09
*ED COVID-19 Vaccine History Last Done: 10/04/24 11:54
*Nursing Disposition Last Done: 10/04/24 14:54
ED- Cardiac Assessment Last Done: 10/04/24 12:09
Discharge Date and Time
Discharge Date/Time: 10/04/24 14:54
[2024-10-04 13:09] LABS: NT-proBNP 1820 pg/ml; Troponin I 0.013 ng/ml
--- NOTE | 2024-10-04 13:15 | HPS.HSE ---
Family Physician
-
Family Physician: Alida Hendricks
Chief Complaint
-
congestion
cough fever
History of Present Illness
68-year-old male ex-smoker CAD heart failure followed by Dr. Chaparro Cat locally Dr. Chey Menjivar at [facility] presented to us with congestion, cough for past 15 days. patient stated productive cough with greenish, brownish sputum. Patient complained
of frontal headache for past 15 days. He was taking Mucinex, Tylenol every 6 hours with no relief in his symptoms. Patient had a fever of 101 at home. Patient started having short of breath for past 5 to 6 days. patient is complaining of
midsternal pain. Patient denied dizziness or syncope. Patient denied abdominal pain. He was not nauseous, dry heaves and vomiting. Denied diarrhea. Patient also complained of burning with urination. Patient complained of dark yellowish urine.
Patient also stated poor oral intake.
On arrival patient was hypoxic. He is requiring 2 L of oxygen. Chest x-ray with pneumonia. Patient received ceftriaxone, Doxy and dexamethasone in ER. Admitted for further management
Medical History
Past Medical History
Past Medical History: Reports Other
Additional Past Medical History:
Hypertension
Hyperlipidemia
CAD
MRI
Past Surgical History: Reports Other
Additional Past Surgical History:
Coronary artery bypass graft
Cardiac stent
Laminectomy
Right knee replacement
Social History
Tobacco: Former Smoker
Alcohol: Former
Drug: None
Living: With Family
Family History
Family History: Not pertinent
Allergies / Home Medications
Allergies reflects when Allergies were last updated in Mobile Location, IP.
Home Medications with original date entered in Mobile Location, IP
Allergy/Medication List:
Allergies
Allergy/AdvReac Type Severity Reaction Status Date / Time
No Known Allergies Allergy Verified 09/01/24 08:36
Home Medications
aspirin 81 mg tablet,delayed release 81 mg PO DAILY Blood Clot Prevention/Tx 11/22/20
rosuvastatin 20 mg tablet 20 mg PO BID High Cholesterol 11/04/23
pantoprazole 40 mg tablet,delayed release 40 mg PO BID Gastrointestinal Issue 12/01/23
isosorbide mononitrate 30 mg tablet,extended release 24 hr 90 mg PO DAILY Heart Disease/Condition 04/26/24
torsemide 20 mg tablet 40 mg PO BID Fluid Retention/Swelling 04/26/24
carvedilol 3.125 mg tablet (Coreg) 3.125 mg PO BID Blood Pressure 09/01/24
gabapentin 100 mg capsule 100 mg PO BID pain 09/01/24
potassium chloride 20 mEq tablet,extended release 20 meq PO BID Electrolyte Repletion 09/01/24
Review of Systems
-
Constitutional: Reports Fever, Fatigue and Chills
EENT: Reports No Symptoms
Respiratory: Reports Cough and Trouble Breathing
Cardiac: Reports No Symptoms
Abdomen/GI: Reports Nausea and Vomiting
: Reports Dysuria and Difficulty Voiding
Musculoskeletal: Reports No Symptoms
Skin: Reports No Symptoms
Neurological: Reports Headache and Weakness
Endocrine: Reports No Symptoms
Hematologic/Lymphatic: Reports No Symptoms
Psych: Reports No Symptoms
Physical Exam
Vital Signs
Vital Signs
Temp Pulse Resp BP Pulse Ox
98.8 F 93 20 121/107 99
10/04/24 11:54 10/04/24 11:54 10/04/24 12:09 10/04/24 11:54 10/04/24 11:54
Physical Exam
General: Well Developed, Well Nourished and No Apparent Distress
HEENT: NormoCephalic, Moist mucous membranes and Atraumatic
Respiratory: Wheezes and Rhonchi
Cardiac: S1/S2 and Regular Rhythm; No Murmur or Rub
GI: Soft, Non Tender, Non Distended and Normal Bowel Sounds; No Organomegaly
Rectal: Deferred by Provider
Musculoskeletal: No Clubbing, No Cyanosis and No Edema
Skin: No Rash
Neuro: AO x 3 and Nonfocal/grossly intact
Psych: Calm
Laboratory Results
-
10/04/24 11:58
10/04/24 11:58
Laboratory Results
Total Bilirubin 2.8 mg/dl (0.2-1.3) H 10/04/24 11:58
AST 57 U/L (17-59) 10/04/24 11:58
ALT 20 U/L (0-50) 10/04/24 11:58
Alkaline Phosphatase 177 U/L (38-126) H 10/04/24 11:58
Troponin I 0.013 ng/ml 10/04/24 11:58
Data Reviewed
-
Diagnostic Radiology: Report Reviewed by me
Lab Data: Labs Reviewed by me
Impression/Plan
-
# Acute hypoxic respiratory failure secondary to pneumonia
-chest x ray with the impression of Moderate left perihilar pneumonia with extension into the lingula and left upper lobe
-Ceftriaxone and Doxy continued
-Albuterol as needed for shortness breath and wheezing
-Obtain sputum culture, urine Legionella, strep pneumonia
-Continue supplemental oxygen to keep sat greater than 92, wean as tolerated
-Tylenol as needed for fever or pain
-Decadron continue
-Tessalon as needed for cough
#hypokalemia likely from poor oral intake /nausea/vomiting
-k 3.4
-Supplemented with oral KCl
-monitor BMP in a.m.
#Complex CAD
-s/p Cabg
-Aspirin continued
#HFp/recEF, Chronic
-Patient not in acute exacerbation strict CESAR
-Daily weight , strict CESAR
-Coreg continue with hold parameters
-Torsemide continue with all parameters
# Neuropathy
-Gabapentin continued
#HTN
-Continue Imdur
#HLD
-Continue statin
# GERD
-PPI continued
# DVT prophylaxis
-Lovenox
# CODE STATUS
-Full code
--- NOTE | 2024-10-04 13:36 | W.PN.UPDATE ---
Update Note
Progress Note Update
This is an addendum to the H&P written by Fany Johnson on 10/04/2024. Patient seen and examined independently with RISK ASSESSMENT ANALYST.
68-year-old male past medical history of CAD status post CABG x 5, multiple cardiac stents on aspirin, Plavix, HFpEF, mesenteric thrombosis with SMA stent, hypertension presenting with 2 weeks of cough congestion fever, productive sputum and chest
pain. Also with vomiting over the past few days. No diarrhea. Complaining of headache.
Vital signs normal. Significant rhonchi bilaterally on examination. No evidence of volume overload.
Labs show mild hypokalemia potassium 3.4. Cardiac BNP of 1800 elevated from 1100 previously.
Chest x-ray shows moderate left perihilar pneumonia with extension to the lingula/left upper lobe.
Check COVID and flu. Check sputum culture. Ceftriaxone/doxycycline. Dexamethasone, DuoNebs. Tylenol for headache. Ct head still pending.
[2024-10-04] MEDS: DECADRON 10 MG IV (13:40)
[2024-10-04] MEDS: VENTOLIN NEBULES 2.5 MG INH (13:41)
[2024-10-04] MEDS: ROCEPHIN 1000 MG IV (13:41)
[2024-10-04] MEDS: KCL ELIXIR 40 MEQ PO (14:01)
[2024-10-04] MEDS: VIBRAMYCIN 260 MG IV ×2 (14:03→23:16)
[2024-10-04 14:43] LABS: COVID-19 Antigen Negative (Negative)
[2024-10-04 14:58] LABS: Magnesium 1.9 mg/dl (1.6-2.3)
[2024-10-04 15:05] VITALS: BP 128/66
[2024-10-04 15:20] VITALS: BMI 26.6
[2024-10-04] MEDS: DUONEB 3 ML INH (15:31)
[2024-10-04] MEDS: NITROSTAT (SUBLINGUAL) 0.4 MG SL (15:31)
[2024-10-04 15:48] VITALS: BMI 26.6
[2024-10-04] MEDS: DEMADEX 40 MG PO (16:24)
[2024-10-04] MEDS: TESSALON PERLES 200 MG PO ×2 (16:28→20:02)
[2024-10-04] MEDS: LOVENOX 40 MG SC (17:36)
[2024-10-04] MEDS: CRESTOR 20 MG PO (20:00)
[2024-10-04] MEDS: KCL 20 MEQ PO (20:00)
[2024-10-04] MEDS: NEURONTIN 100 MG PO (20:00)
[2024-10-04] MEDS: TYLENOL PO (20:00)
[2024-10-04] MEDS: COREG PO ×2 (20:00→20:07)
[2024-10-04] MEDS: PROTONIX 40 MG PO (20:00)
[2024-10-04] MEDS: MELATONIN 5 MG PO (22:07)
--- NOTE | 2024-10-04 22:30 | PTCARENOTE ---
Upon return from CT, patients own nitroglycerine bottle fell out of pocket. Patient denied taking any while in hospital, agreeable to let us hold onto his medication while inpatient. Educated on importance of medication administration via nurses to
ensure safety, patient is agreeable. Order previously placed for PRN Nitro. Medications labeled and in nursing cart. VSS, call morales within reach, care ongoing.
[2024-10-04 23:00] VITALS: BP 105/58
[2024-10-04] MEDS: DECADRON 4 MG IV (23:16)
[2024-10-05] VITALS (7 sets, daily range): BP systolic 90–107; BP diastolic 51–70; BMI 26.9
[2024-10-05] MEDS: NITROSTAT (SUBLINGUAL) 0.4 MG SL ×3 (00:28→15:59)
--- NOTE | 2024-10-05 00:45 | PTCARENOTE ---
Patient requesting PRN Nitro for 'stabbing' chest pains, unable to provide number for intensity at this time. See MAR for administration, EKG performed. EBD SPECIAL EDUCATION TEACHER made aware, orders for telemetry placed. VSS, call morales within reach, care ongonig.
[2024-10-05 02:01] LABS: Urine Albumin Trace (Neg - Trace); Urine Bilirubin 1+ (Negative); Urine Character Clear (Clear); Urine Color Amber; Urine Glucose Negative (Negative); Urine Ketone Negative (Negative); Urine Leukocyte Negative (Negative); Urine Nitrite Negative (Negative); Urine Occult Blood Negative (Negative); Urine Specific Gravity 1.015 (<1.030); Urine Urobilinogen 4+ (Neg - 1+)
[2024-10-05 07:06] LABS: Blood Urea Nitrogen 20 mg/dl (9-20); Calcium 7.9 mg/dl (8.4-10.2); Carbon Dioxide 25 mmol/L (22-30); Chloride 102 mmol/L (98-107); Estimated Creatinine Clearance 102 ml/min; Glucose 151 mg/dl (70-99); Potassium 3.8 mmol/L (3.5-5.1); Sodium 135 mmol/L (135-145); eGFR > 60.00
[2024-10-05] MEDS: MAG-TAB SR 84 MG PO (08:36)
[2024-10-05] MEDS: NEURONTIN 100 MG PO ×2 (08:37→19:56)
[2024-10-05] MEDS: CRESTOR 20 MG PO ×2 (08:37→19:56)
[2024-10-05] MEDS: KCL 20 MEQ PO ×2 (08:37→19:56)
[2024-10-05] MEDS: PROTONIX 40 MG PO ×2 (08:37→19:56)
[2024-10-05] MEDS: ASPIR LOW (ENTERIC COATED) 81 MG PO (08:37)
[2024-10-05] MEDS: IMDUR (EXTENDED RELEASE) 90 MG PO (08:37)
[2024-10-05] MEDS: COREG PO ×2 (08:38→19:55)
[2024-10-05] MEDS: DEMADEX PO ×2 (08:38→15:57)
[2024-10-05 09:36] LABS: Troponin I < 0.012 ng/ml
--- NOTE | 2024-10-05 09:43 | W.PN.HOSP.TC ---
Addendum entered and electronically signed by Yasmani Maki MD 10/05/24 18:32:
will do cta chest and update echo
Original Note:
Today's Communication/Plan
-
IV antibiotics. EKG. Cardiac enzymes.
Assessment / Plan
Assessment / Plan
Physical exam:
General: Acutely ill
HEENT: Normocephalic, Atraumatic and Moist Mucous Membranes
Respiratory: Bilateral rhonchi at the bases more pronounced on the left; Negative Wheezes, Rales
Cardiac: Regular Rhythm and S1/S2, diastolic murmur
GI: Soft, Nontender and Nondistended
Musculoskeletal: No Clubbing, No Cyanosis and No Edema
Neuro: Awake, Alert and Oriented, no gross neurological deficit
Psych: Calm
A/P:
Acute hypoxic respiratory failure:
Related to pneumonia
Continue oxygen supplementation
Continue antibiotics
Quick tapering of steroids-unclear role
Pneumonia:
Continue IV Rocephin and doxycycline
Influenza and COVID-19 negative
Legionella and strep negative
Add stronger cough suppressant
Chronic stable angina plus atypical chest pain:
Troponin x 2 normal
EKG no new signs of ischemia-old Q waves consistent with old inferior UT.
Continue nitro as needed
Add Toradol and cough suppressants to help with atypical component
CAD:
History of CABG and multiple stents in the past
Continue home ischemic regimen, aspirin, blockers, long-acting nitrates, statins.
Continue cardiac monitoring
Chronic diastolic congestive heart failure:
Appears euvolemic
Continue oral torsemide 40 mg twice a day
Continue beta-blockers
Continue to monitor ins and outs and daily weight
Hypertension:
Continue home meds
Monitor blood pressure closely
Hyperlipidemia:
Continue statin
Hypokalemia:
Improving
Continue K and Mg supplement
DVT prophylaxis:
Lovenox SQ
CODE STATUS:
Full code
Time spent 52 minutes
Anticipated Discharge: > 48 hours
Subjective/Interval History
-
Date of Service: October 05, 2024
Patient complained of chest pain, burning sensation, no radiation, mild to moderate intensity, lasted a few minutes, resolved with nitro and same as his usual pain. Patient complains of worsening cough. Afebrile
Objective Data
-
Labs:
Laboratory Results
10/05/24
06:00
Sodium 135
Potassium 3.8
Chloride 102
Carbon Dioxide 25
BUN 20
Creatinine 0.7
Glucose 151 H
Calcium 7.9 L
Vital Signs:
Vital Signs
Temp Pulse Resp BP Pulse Ox
97.7 F 66 16 94/60 98
10/05/24 07:37 10/05/24 08:38 10/05/24 07:37 10/05/24 08:39 10/05/24 09:37
I&O
10/04/24 10/05/24 10/06/24
06:59 06:59 06:59
Intake Total 980 / 980
Output Total 1525 / 1525
Balance -545 / -545
[2024-10-05] MEDS: VIBRAMYCIN 260 MG IV ×2 (10:54→23:04)
[2024-10-05] MEDS: DECADRON 4 MG IV ×2 (10:54→23:05)
[2024-10-05] MEDS: STERILE WATER FOR INJECTION 10 ML IV (13:11)
[2024-10-05] MEDS: TORADOL 15 MG IV ×2 (13:11→22:18)
[2024-10-05] MEDS: ROCEPHIN 1000 MG IV (13:11)
[2024-10-05] MEDS: TESSALON PERLES 200 MG PO ×2 (13:11→22:18)
[2024-10-05] MEDS: ROBITUSSIN AC 5 ML PO ×2 (13:18→22:17)
[2024-10-05] MEDS: LOVENOX 40 MG SC (15:57)
[2024-10-05] MEDS: TYLENOL 650 MG PO (16:00)
[2024-10-05] MEDS: ATIVAN 0.25 MG PO (20:25)
[2024-10-05] MEDS: MELATONIN 5 MG PO (22:14)
[2024-10-05] MEDS: DUONEB 3 ML INH (22:32)
--- NOTE | 2024-10-06 00:36 | W.PN.UPDATE ---
Update Note
Progress Note Update
Patient c/o burning during urination. will order UA. Currently on IV antibiotics for Pneumonia.
[2024-10-06 03:25] VITALS: BP 96/56
[2024-10-06 06:00] VITALS: BMI 27.1
[2024-10-06 06:32] LABS: % Basophils 0.3 % (0-2); % Eosinophils 0.5 % (0-6); % Immature Granulocytes 0.9 % (0-0.5); % Lymphocytes 4.8 % (20.5-51.1); % Monocytes 2.2 % (1.7-9.3); % Neutrophils 91.3 % (42.2-75.2); Absolute Basophils 0.1 10^3/uL (0-0.2); Absolute Eosinophils 0.1 10^3/uL (0-0.7); Absolute Immature Granulocytes 0.2 10^3/uL (0-0.05); Absolute Lymphocytes 0.9 10^3/uL (1.2-3.4); Absolute Monocytes 0.4 10^3/uL (0.1-0.6); Absolute Neutrophils 16.9 10^3/uL (1.4-6.5); Hemoglobin 10.2 g/dL (13.0-18.0); Mean Platelet Volume 10.3 fL (7.4-10.4); Nucleated Red Blood Cells % 0 % (-); Platelet Count 165 10^3/uL (130-400); Red Cell Dist. Width 13.8 % (11.5-14.5); White Blood Cell Count 18.5 10^3/uL (4.8-10.8)
[2024-10-06 06:51] LABS: NT-proBNP 2010 pg/ml; Troponin I < 0.012 ng/ml
[2024-10-06 07:04] LABS: Blood Urea Nitrogen 37 mg/dl (9-20); Calcium 7.8 mg/dl (8.4-10.2); Carbon Dioxide 22 mmol/L (22-30); Chloride 102 mmol/L (98-107); Estimated Creatinine Clearance 48 ml/min; Glucose 158 mg/dl (70-99); Magnesium 1.9 mg/dl (1.6-2.3); Potassium 4.2 mmol/L (3.5-5.1); Sodium 134 mmol/L (135-145); eGFR 50.71
[2024-10-06 07:05] VITALS: BP 98/50
[2024-10-06] MEDS: IMDUR (EXTENDED RELEASE) 90 MG PO (07:47)
[2024-10-06] MEDS: PROTONIX 40 MG PO ×2 (07:47→19:46)
[2024-10-06] MEDS: KCL 20 MEQ PO (07:48)
[2024-10-06] MEDS: CRESTOR 20 MG PO ×2 (07:48→19:46)
[2024-10-06] MEDS: ASPIR LOW (ENTERIC COATED) 81 MG PO (07:48)
[2024-10-06] MEDS: MAG-TAB SR 84 MG PO (07:48)
[2024-10-06] MEDS: NEURONTIN 100 MG PO ×2 (07:48→19:46)
[2024-10-06] MEDS: DEMADEX PO (07:48)
[2024-10-06] MEDS: COREG PO ×2 (07:49→19:45)
--- NOTE | 2024-10-06 08:44 | W.PN.HOSP.TC ---
Addendum entered and electronically signed by Yasmani Maki MD 10/06/24 15:44:
After study respiratory failure has been ruled out
Addendum entered and electronically signed by Yasmani Maki MD 10/06/24 15:26:
Discussed with cardio and likely non cardiac cp. For h/a will use ivf, tylenol standing doses and will give depakote 500 mg iv now.
Addendum entered and electronically signed by Yasmani Maki MD 10/06/24 14:09:
Of note, increase leukocytosis is related to steroids.
Original Note:
Today's Communication/Plan
-
IV antibiotics. Cardiology consult. Echo
Assessment / Plan
Assessment / Plan
Physical exam:
General: Acutely ill
HEENT: Normocephalic, Atraumatic and Moist Mucous Membranes
Respiratory: Bilateral rhonchi at the bases more pronounced on the left; Negative Wheezes, Rales
Cardiac: Regular Rhythm and S1/S2, diastolic murmur
GI: Soft, Nontender and Nondistended
Musculoskeletal: No Clubbing, No Cyanosis and No Edema
Neuro: Awake, Alert and Oriented, no gross neurological deficit
Psych: Calm
A/P:
Acute hypoxic respiratory failure:
Related to pneumonia
Continue oxygen supplementation
Continue antibiotics
Quick tapering of steroids-unclear role
Pneumonia:
Continue IV Rocephin and doxycycline
Influenza and COVID-19 negative
Legionella and strep negative
Added stronger cough suppressant
CTA of the chest negative for PE and it confirmed multilobar community-acquired pneumonia.
Chronic stable angina plus atypical chest pain:
Troponin x 3 normal
EKG no new signs of ischemia-old Q waves consistent with old inferior CT.
Continue nitro as needed
Add Toradol but will discontinue now given DENICE.
Echocardiogram pending
Will request cardiology consult for further evaluation today given his underlying CAD
DENICE:
Give gentle hydration today
Hold torsemide and potassium supplements and NSAIDs
Check bladder scan post-void residuals
Recheck renal function in a.m.
Headache:
Symptomatic treatment
CT of the head unremarkable
Hypotension:
Hold some of the medications that can contribute and plan for echocardiogram
Gentle hydration with IV fluids
Cardiology consult as well
CAD:
History of CABG and multiple stents in the past
Continue home ischemic regimen, aspirin, blockers, long-acting nitrates, statins.
Continue cardiac monitoring
Chronic diastolic congestive heart failure:
Appears euvolemic
Hold oral torsemide 40 mg twice a day
Continue beta-blockers
Continue to monitor ins and outs and daily weight
Hypertension:
Continue home meds
Monitor blood pressure closely
Hyperlipidemia:
Continue statin
Hypokalemia:
Improving
Continue K and Mg supplement
DVT prophylaxis:
Lovenox SQ
CODE STATUS:
Full code
Time spent 52 minutes
Anticipated Discharge: > 48 hours
Subjective/Interval History
-
Date of Service: October 06, 2024
Patient continues to complain of chest pain. Also has headache. Also continues to have cough. Afebrile
Objective Data
-
Labs:
Laboratory Results
10/06/24
06:07
WBC 18.5 H
Hgb 10.2 L
Hct 30.0 L
Plt Count 165
Sodium 134 L
Potassium 4.2
Chloride 102
Carbon Dioxide 22
BUN 37 H
Creatinine 1.5 H
Glucose 158 H
Calcium 7.8 L
Vital Signs:
Vital Signs
Temp Pulse Resp BP Pulse Ox
97.4 F 68 19 98/50 98
10/06/24 07:05 10/06/24 07:49 10/06/24 07:05 10/06/24 07:49 10/06/24 07:48
I&O
10/05/24 10/06/24 10/07/24
06:59 06:59 06:59
Intake Total 980 / 980 1090 / 1090
Output Total 1525 / 1525 700 / 700
Balance -545 / -545 390 / 390
[2024-10-06] MEDS: NSS 1000 IV (10:16)
[2024-10-06 11:05] VITALS: BP 96/53
[2024-10-06] MEDS: VIBRAMYCIN 100 MG PO ×2 (11:16→19:45)
[2024-10-06 11:36] LABS: Urine Albumin Trace (Neg - Trace); Urine Bilirubin Negative (Negative); Urine Character Clear (Clear); Urine Color Yellow; Urine Glucose Negative (Negative); Urine Ketone Negative (Negative); Urine Leukocyte Negative (Negative); Urine Nitrite Negative (Negative); Urine Occult Blood Negative (Negative); Urine Urobilinogen Negative (Neg - 1+)
[2024-10-06] MEDS: ROBITUSSIN AC 5 ML PO (12:58)
[2024-10-06] MEDS: ROCEPHIN 1000 MG IV (12:58)
[2024-10-06] MEDS: STERILE WATER FOR INJECTION 10 ML IV (12:59)
--- NOTE | 2024-10-06 13:11 | CON.CAR ---
Addendum entered and electronically signed by Jorje Kennedy MD 10/06/24 18:32:
68 yo male with complex CAD, chronic stable angina. Admitted with PNA. We are called for chest pain. Exam with RRR, no murmurs, no edema. TnI <0.012. EKG: NSR, no acute ischemic changes. Echo: normal LVEF and wall motion.
Likely mild increase in chronic angina in setting of PNA. Would not changes meds at this time. Continue current regimen.
Please call us back with additional questions.
Original Note:
Consultation
Consultation Request
Date/Time Consultation Requested: 10/06/24 6972
Date/Time Consultation Performed: 10/06/24 1310
Requesting Provider: Dr. Maki
Performing Provider: Keyla MAYA for Dr. Kennedy
Reason for Consultation: chest discomfort
Medical History
-
Chief Complaint: chest discomfort, SOB, fever, cough, congestion
History of Present Illness:
68 y/o male with premature CAD s/p CABG (in 1992 at [facility] at age 37; known occluded SVG-diagonal), subsequent coronary stenting (2006 and 2020), ICM EF 40-45%- now normalized, hypertension, dyslipidemia, prediabetes, SMA stent 10/2023, and former
cigarette use (quit 05/2021), recent anemia with BRB per rectum (resolved), prolonged QTC. He was here in July with CP, but ultimately sent to [place] due to his complex coronary disease. He had a cardiac cath with Dr. Armijo 08/03/24 with stable
coronary disease with a known occluded LAD, eccentric LM disease into LCX artery, no other arteries engaged during study- no hemodynamically significant CAD across the LM stenosis (iFR of LM into circ 0.94). He is here for evaluation of SOB, fever,
cough, congestion, continued CP, VINES. He is admitted with PNA and is being treated with ABX. We are consulted for continued CP. Per patient it has not changed. It comes and goes with no correlation with activity/food/etc. He takes about 5 nitros per
day, which help. His trops here are normal and EKGs are stable. BP is on low end, DENICE is noted. Fluids being given. Dr. 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
Past Medical History
Past Medical History: CAD, CHF, HTN and Hypercholesterolemia
Social History
Tobacco: Former Smoker
Family History
Family History: Reviewed & Not Pertinent
Allergies / Home Medications
Allergy/AdvReac Type Severity Reaction Status Date / Time
No Known Allergies Allergy Verified 09/01/24 08:36
�Medication �Instructions �Recorded �Confirmed �Type
aspirin 81 mg tablet,delayed 81 mg PO DAILY Blood Clot 11/22/20 10/04/24 History
release Prevention/Tx
rosuvastatin 20 mg tablet 20 mg PO BID High Cholesterol 11/04/23 10/04/24 History
pantoprazole 40 mg tablet,delayed 40 mg PO BID Gastrointestinal Issue 12/01/23 10/04/24 History
release
isosorbide mononitrate 30 mg 30 mg PO TID Heart 04/26/24 10/04/24 History
tablet,extended release 24 hr Disease/Condition
torsemide 20 mg tablet 40 mg PO BID Fluid 04/26/24 10/04/24 History
Retention/Swelling
carvedilol 3.125 mg tablet (Coreg) 6.25 mg PO DAILY Blood Pressure 09/01/24 10/04/24 History
gabapentin 100 mg capsule 100 mg PO BID pain 09/01/24 10/04/24 History
potassium chloride 20 mEq 20 meq PO BID Electrolyte Repletion 09/01/24 10/04/24 History
tablet,extended release
magnesium oxide 400 mg PO DAILY Supplement 10/04/24 10/04/24 History
Review of Systems
-
History Source: Patient
All other systems: Negative unless noted
Constitutional: Fever
Respiratory: Cough and Trouble Breathing
Cardiac: Chest Pain
Neurological: Headache
Physical Exam
Vital Signs
Temp Pulse Resp BP Pulse Ox
97.4 F 72 18 96/53 96
10/06/24 11:05 10/06/24 11:05 10/06/24 11:05 10/06/24 11:05 10/06/24 11:05
Lab Results
10/06/24 06:07
10/06/24 06:07
Troponin I < 0.012 ng/ml 10/06/24 06:07
Vbn-O-Ffjltgsiooa Pept 2010 pg/ml 10/06/24 06:07
Physical Exam
General: Well Developed, Well Nourished and No Apparent Distress
HEENT: Normocephalic and Anicteric
Respiratory: Wheezes, Rhonchi and Other (on O2 by NC)
Cardiac: Regular Rhythm
Musculoskeletal: No Edema
Skin: Warm and Dry
Neuro: AO x 3
Psych: Calm
Impression / Plan
-
PNA:
-severe in that he is requiring hospitalization with O2 and IV abx
- management per primary
DENICE:
-s/p IVF
-monitor closely
Chest pain:
-patient has chronic, stable angina- it does not sound like it has changed, but could be a but worse in the setting of PNA and very complex coronary disease. Would treat underlying illness and then can reassess antianginals when able.
-trop and EKG stable
-echo stable
Complex CAD with hx CABG and stenting:
-cardiac cath with Dr. Armijo 08/03/24 with stable coronary disease with a known occluded LAD, eccentric LM disease into LCX artery, no other arteries engaged during study- no hemodynamically significant CAD across the LM stenosis (iFR of LM into
circ 0.94)
-continue ASA, statin. Continue BB and Imdur as BP will tolerate. Of note, patient reports that he was on Ranexa in the past and his [place] control systems drafting officer stopped it due to an EKG change with it? Details unknown. I suspect related to chronically
prolonged QTc.
HFpEF (ICM with improved EF): chronic
-does not appear overloaded to assessment
-torsemide held with DENICE
Hx SMA stent:
-on ASA, statin
Prolonged QTC- monitor, but chronic and stable
Mild/moderate AR: stable
Data Reviewed
-
EKG: Tracing Personally Visualized and interpreted (SR 64 BPM, prolonged QTC - stable overall)
CT Scan: Report Reviewed by me (No evidence of pulmonary embolism. Bilateral pneumonia.)
Medical Tests (Nuc Med, Echo etc): Report Reviewed by me (Echo 07/28/24: EF 55-60%. Mild asymmetric septal hypertrophy (IVS 1.2cm, LVPW 0.9 cm). Mild/moderate aortic regurgitation.)
Labs: Labs Reviewed by me
[2024-10-06 15:05] VITALS: BP 103/56
--- NOTE | 2024-10-06 15:15 | PN.CDI ---
CDI
- -
CDI:
Physician Documentation Request
Admit Date: 10/04/24 14:00
Dear Doctor Shanthi,
Hospitalist progress notes states 'Acute hypoxic respiratory failure secondary to pneumonia'
H&P states pt 'is requiring 2 L of oxygen'
Per recorded vital signs patient has not exceeded 3 Liters.
Recognized standard criteria for respiratory failure includes:
(Source: [facility] Hospitalist Jul 2013)
ABGs (1 or more)
�PO2 <60 or RA SpO2 <91%
�PcO2 >50 and pH <7.35
�pO2 decrease or pcO2 increase by 10 mmHg from baseline if known Symptoms:
�Tachypnea, SOB, dyspnea
�Pallor or cyanosis
�Anxiety or restlessness
�Use of accessory muscles
�Retractions (grunting in newborns)
�Unable to speak in complete sentences
Supplemental O2 requirement of 40% (5LPM) or more Intubation is not required
Based on the above information and the recognized standard for respiratory failure could you please verify this diagnoses is still accurate and reflective of the patient�s condition to ensure quality of the medical record.
Please clarify in the Progress Notes:
�Respiratory failure is/was present and is a clinical diagnosis based on (please include this additional support in the medical record)
�After study respiratory failure has been ruled out
�Other
Use of terms such as suspected, likely, concern for, or probable (associated with a specific diagnosis that is being evaluated, monitored, or treated as if it exists) are acceptable and can be coded in the inpatient setting, when documented at the
time of discharge.
Thank you,
Karla Jones RN, BSN
CDI Specialist
tiger text
Please use your independent medical judgment in providing your response.
[2024-10-06] MEDS: LOVENOX 40 MG SC (16:24)
[2024-10-06] MEDS: DEPACON 55 MG IV (16:25)
[2024-10-06] MEDS: TYLENOL 1000 MG PO ×2 (16:26→23:23)
[2024-10-06 19:23] VITALS: BP 103/59
[2024-10-06] MEDS: TESSALON PERLES 200 MG PO (19:51)
[2024-10-06] MEDS: MELATONIN 5 MG PO (21:06)
[2024-10-06 23:00] VITALS: BP 102/57
[2024-10-06] MEDS: XANAX 0.25 MG PO (23:23)
[2024-10-07] VITALS (7 sets, daily range): BP systolic 86–117; BP diastolic 56–65; PULSE 61; O2SAT 98
[2024-10-07] MEDS: NSS 1000 IV (01:56)
[2024-10-07] MEDS: ROXICODONE 5 MG PO ×2 (05:23→13:47)
[2024-10-07 06:58] LABS: % Basophils 0.1 % (0-2); % Immature Granulocytes 1.3 % (0-0.5); % Lymphocytes 8.5 % (20.5-51.1); % Monocytes 5.7 % (1.7-9.3); % Neutrophils 84.4 % (42.2-75.2); Absolute Immature Granulocytes 0.1 10^3/uL (0-0.05); Absolute Lymphocytes 0.9 10^3/uL (1.2-3.4); Absolute Monocytes 0.6 10^3/uL (0.1-0.6); Absolute Neutrophils 9.1 10^3/uL (1.4-6.5); Hemoglobin 9.6 g/dL (13.0-18.0); Mean Corp Hgb Conc. 34.3 g/dL (33.0-37.0); Mean Corpuscular Hgb 34.2 pg (27.0-31.0); Mean Corpuscular Volume 99.6 fL (80.0-94.0); Mean Platelet Volume 10.2 fL (7.4-10.4); Nucleated Red Blood Cells % 0 % (-); Platelet Count 161 10^3/uL (130-400); Red Blood Cell Count 2.81 10^6/uL (4.70-6.10); Red Cell Dist. Width 13.9 % (11.5-14.5); White Blood Cell Count 10.8 10^3/uL (4.8-10.8)
[2024-10-07 07:32] LABS: Blood Urea Nitrogen 33 mg/dl (9-20); Calcium 7.7 mg/dl (8.4-10.2); Carbon Dioxide 23 mmol/L (22-30); Chloride 103 mmol/L (98-107); Estimated Creatinine Clearance 65 ml/min; Glucose 142 mg/dl (70-99); Potassium 4.1 mmol/L (3.5-5.1); Sodium 133 mmol/L (135-145); eGFR > 60.00
[2024-10-07] MEDS: IMDUR (EXTENDED RELEASE) 90 MG PO (08:43)
[2024-10-07] MEDS: VIBRAMYCIN 100 MG PO ×2 (08:44→21:03)
[2024-10-07] MEDS: NEURONTIN 100 MG PO ×2 (08:44→21:03)
[2024-10-07] MEDS: TYLENOL 1000 MG PO ×2 (08:44→16:55)
[2024-10-07] MEDS: CRESTOR 20 MG PO ×2 (08:44→21:05)
[2024-10-07] MEDS: ASPIR LOW (ENTERIC COATED) 81 MG PO (08:44)
[2024-10-07] MEDS: MAG-TAB SR 84 MG PO (08:44)
[2024-10-07] MEDS: PROTONIX 40 MG PO ×2 (08:44→21:03)
[2024-10-07] MEDS: COREG 6.25 MG PO (08:47)
[2024-10-07] MEDS: NITROSTAT (SUBLINGUAL) 0.4 MG SL (08:55)
[2024-10-07] MEDS: TESSALON PERLES 200 MG PO (08:56)
[2024-10-07] MEDS: ROBITUSSIN AC 5 ML PO ×4 (08:56→21:03)
--- NOTE | 2024-10-07 09:05 | W.PN.HOSP.TC ---
Addendum entered and electronically signed by Yasmani Maki MD 10/07/24 15:26:
Hyponatremia
Original Note:
Today's Communication/Plan
-
IV antibiotics. Cardio reeval. Neuro eval.
Assessment / Plan
Assessment / Plan
Physical exam:
General: Acutely ill
HEENT: Normocephalic, Atraumatic and Moist Mucous Membranes
Respiratory: Bilateral rhonchi at the bases more pronounced on the left; Negative Wheezes, Rales
Cardiac: Regular Rhythm and S1/S2, diastolic murmur
GI: Soft, Nontender and Nondistended
Musculoskeletal: No Clubbing, No Cyanosis and No Edema
Neuro: Awake, Alert and Oriented, no gross neurological deficit
Psych: Calm
A/P:
Pneumonia:
Continue IV Rocephin and doxycycline
WBC 10.8 today
Influenza and COVID-19 negative
Legionella and strep negative
Added stronger cough suppressant, guaifenesin with codeine and now switch to scheduled doses at least temporarily.
CTA of the chest negative for PE and it confirmed multilobar community-acquired pneumonia.
PT OT
Chronic stable angina plus atypical chest pain:
Troponin x 3 normal
EKG no new signs of ischemia-old Q waves consistent with old inferior [place].
Continue nitro as needed
Added Toradol but discontinued given DENICE.
Cardiology evaluated the patient and felt this is non-cardiac. Cardio will reevaluate the patient today again. Discussed with cardiology in person today on 10/07
Headache:
Symptomatic treatment, including IV Depakote x 1, schedule Tylenol. Given IV fluids. Can resume NSAIDs if needed now that renal function improved.
CT of the head unremarkable.
Will request neurology eval in light of persistent h/a despite all treatment
DENICE:
Resolved
s/p ivf
Hold torsemide and potassium supplements and NSAIDs
Check bladder scan post-void residuals
Recheck renal function in a.m.
Acute hypoxic respiratory failure ruled out.
Hypotension:
Continue to monitor
Gentle hydration with IV fluids but now stopped and encourage oral intake
Holding parameters for antihypertensives
Cardiology consult as well
Leukocytosis:
Reactive due to steroids
18.5--> 10.8
CAD:
History of CABG and multiple stents in the past
Continue home ischemic regimen, aspirin, blockers, long-acting nitrates, statins.
Continue cardiac monitoring
Chronic diastolic congestive heart failure:
Appears euvolemic
Holding oral torsemide 40 mg twice a day due to recent DENICE and will resume tomorrow if appropriate
Continue beta-blockers
Continue to monitor ins and outs and daily weight
Hypertension:
Continue home meds
Monitor blood pressure closely
Hyperlipidemia:
Continue statin
Hypokalemia:
Improving
Continue K and Mg supplement
DVT prophylaxis:
Lovenox SQ
CODE STATUS:
Full code
Time spent 52 minutes
Anticipated Discharge: > 48 hours
Subjective/Interval History
-
Date of Service: October 07, 2024
Patient continues to complain of chest pain and headache. He tells me chest pain is intermittent in nature but every day and headache has persisted for about 18 days with an intensity of 10 out of 10 associated with nausea but no focal neurological
deficits.
Objective Data
-
Labs:
Laboratory Results
10/07/24
06:35
WBC 10.8
Hgb 9.6 L
Hct 28.0 L
Plt Count 161
Sodium 133 L
Potassium 4.1
Chloride 103
Carbon Dioxide 23
BUN 33 H
Creatinine 1.1
Glucose 142 H
Calcium 7.7 L
Vital Signs:
Vital Signs
Temp Pulse Resp BP Pulse Ox
97.4 F 64 17 117/63 97
10/07/24 08:01 10/07/24 08:47 10/07/24 08:01 10/07/24 08:55 10/07/24 08:01
I&O
10/06/24 10/07/24 10/08/24
06:59 06:59 06:59
Intake Total 1090 / 1090 2220 / 2220
Output Total 700 / 700 920 / 920
Balance 390 / 390 1300 / 1300
[2024-10-07] MEDS: REGLAN 10 MG IV (10:32)
--- NOTE | 2024-10-07 11:57 | PN.CDI ---
CDI
- -
CDI:
Physician Documentation Request
Admit Date: 10/04/24 14:00
Dear Doctor Shanthi,
Patient admitted with pneumonia.
Sodium results:
Laboratory Tests
10/04/24 10/05/24 10/06/24
11:58 06:00 06:07
Sodium 132 L 135 134 L
10/07/24
06:35
Sodium 133 L
Could you please provide a diagnosis that supports the above lab abnormalities and additional evaluation/ monitoring:
hyponatremia
Abnormal lab value clinically insignificant
Other
Use of terms such as suspected, likely, concern for, or probable (associated with a specific diagnosis that is being evaluated, monitored, or treated as if it exists) are acceptable and can be coded in the inpatient setting, when documented at the
time of discharge.
Thank you,
Karla Jones RN, BSN
CDI Specialist
tiger text
Please use your independent medical judgment in providing your response.
[2024-10-07 13:20] LABS: % Basophils 0.2 % (0-2); % Eosinophils 0.2 % (0-6); % Immature Granulocytes 1.2 % (0-0.5); % Lymphocytes 10.1 % (20.5-51.1); % Monocytes 7.6 % (1.7-9.3); % Neutrophils 80.7 % (42.2-75.2); Absolute Immature Granulocytes 0.1 10^3/uL (0-0.05); Absolute Lymphocytes 0.9 10^3/uL (1.2-3.4); Absolute Monocytes 0.7 10^3/uL (0.1-0.6); Absolute Neutrophils 6.9 10^3/uL (1.4-6.5); Hematocrit 27.4 % (39.0-52.0); Hemoglobin 9.5 g/dL (13.0-18.0); Mean Corp Hgb Conc. 34.7 g/dL (33.0-37.0); Mean Corpuscular Hgb 33.8 pg (27.0-31.0); Mean Corpuscular Volume 97.5 fL (80.0-94.0); Mean Platelet Volume 10.3 fL (7.4-10.4); Nucleated Red Blood Cells % 0.7 % (-); Platelet Count 164 10^3/uL (130-400); Red Blood Cell Count 2.81 10^6/uL (4.70-6.10); Red Cell Dist. Width 13.7 % (11.5-14.5); White Blood Cell Count 8.6 10^3/uL (4.8-10.8)
[2024-10-07 13:45] LABS: Blood Urea Nitrogen 32 mg/dl (9-20); Calcium 7.6 mg/dl (8.4-10.2); Carbon Dioxide 22 mmol/L (22-30); Chloride 105 mmol/L (98-107); Estimated Creatinine Clearance 72 ml/min; Glucose 102 mg/dl (70-99); Potassium 4.2 mmol/L (3.5-5.1); Sodium 134 mmol/L (135-145); eGFR > 60.00
[2024-10-07] MEDS: STERILE WATER FOR INJECTION 10 ML IV (13:47)
[2024-10-07] MEDS: ROCEPHIN 1000 MG IV (13:47)
--- NOTE | 2024-10-07 13:48 | W.PN.CD ---
Today's Communication / Plan
-
Continue treatment of pneumonia and chest pain as directed by primary team.
Continue current medical therapy for coronary artery disease
Will check follow-up troponin
Impression / Plan
-
PNA:
-severe in that he is requiring hospitalization with O2 and IV abx
- management per primary
DENICE:
-s/p IVF
-monitor closely
Chest pain:
-Challenging to assess he has daily sharp chest pains at home some of which he takes nitro for. Not clear if all of these represent angina. Now patient with increased chest pains that are sharp and worse with cough. At times it is tough for him
to separate different types of chest pain but clearly he reports that symptoms are worse with cough. Likely either having musculoskeletal or pleuritic pain related to coughing and pneumonia. Troponins remain negative. Continue current medical
therapy for CAD we will check serial troponin
Complex CAD with hx CABG and stenting:
-cardiac cath with Dr. Armijo 08/03/24 with stable coronary disease with a known occluded LAD, eccentric LM disease into LCX artery, no other arteries engaged during study- no hemodynamically significant CAD across the LM stenosis (iFR of LM into
circ 0.94)
-continue ASA, statin. Continue BB and Imdur as BP will tolerate. Of note, patient reports that he was on Ranexa in the past and his [place] student support counselor stopped it due to an EKG change with it? Details unknown. I suspect related to chronically
prolonged QTc.
HFpEF (ICM with improved EF): chronic
-does not appear overloaded to assessment
-torsemide held with DENICE
Hx SMA stent:
-on ASA, statin
Prolonged QTC- monitor, but chronic and stable
Mild/moderate AR: stable
Physical Exam
Vital Signs/Labs
Vital Signs
Temp Pulse Resp BP Pulse Ox
97.4 F 56 18 102/56 96
10/07/24 11:44 10/07/24 11:44 10/07/24 11:44 10/07/24 11:44 10/07/24 11:44
10/06/24 10/07/24 10/08/24
06:59 06:59 06:59
Actual Weight 83.053 kg
10/07/24 13:08
10/07/24 13:08
Magnesium 1.9 mg/dl (1.6-2.3) 10/06/24 06:07
10/04/24 10/06/24
11:58 06:07
Smj-Z-Pruubhfgfcs Pept 1819 2009
LAB Results
10/05/24 10/06/24
09:00 06:07
Troponin I < 0.012 < 0.012
Physical Exam
Constitutional: No acute distress
Cardiovascular: Rhythm & rate is regular
Respiratory: Wheeze Absent and Other (Deep inspiration stimulates cough)
GI: Soft and Non tender
Neuro/Psych: Alert
Data Reviewed
-
Date of Service: October 07, 2024
X-Ray/CT/US/MRI/NUC/PET: Report Reviewed by me
Medical Tests (PFT, Pathology etc): Report Reviewed by me
Labs: Labs Reviewed by me
--- NOTE | 2024-10-07 14:48 | CM ---
relations manager reviewed patient's chart and met with patient and patient states he lives with his significant other in a town home, patient was independent with adl's and uses a cane or walker with ambulation, patient did not require oxygen prior to
admission.
PCP: Dr. Hendricks
Pharmacy: [facility] in [place].
Plan; Home with significant other when stable.
--- NOTE | 2024-10-07 15:14 | CON.NEURO ---
Consultation
Order
Date of Consultation: 10/07/24
Requesting Provider: Yasmani Maki MD
Reason for Consult: Severe headache eval
Neurology Consultation Note.
HPI: This is a 68-year-old man who presented to [place] to the hospital on 10/04/2024 with fever, headache and productive cough/hypoxia.
Neurology consultation was requested for an evaluation and management of headache.
Mr. Mejia states that he developed gradual onset holocephalic nonpositional headaches that started 18 days ago, coinciding with flu-like symptoms. The headaches have progressively worsened daily since onset. The patient denies head trauma. He
reports using [id number] medications for flu symptoms.
The patient also complains of left ear pain for 15 days, describing it as feeling 'like somebody was shoving a pencil in my ear.' He reports left ear tinnitus.
Additionally, the patient reports horizontal diplopia that began shortly after the headache onset. Interestingly, his double vision is monocular.
Mr. Mejia was treated with Ceftriaxone, Doxycycline and Vibramycin.
MAR:Dexamethasone 10 mg given on 10/04/24 13:40 and 4 mg given on 10/04/24 23:16, Depacon 500 mg�given on 10/06/24 at 16:25,
Ketorolac 15 mg 10/05/24 13:11, 22:18
Oxycodone 5 mg 10/07/24 05:23, 10/07/24 13:47
ER VS: 1210/107-97/68, 93, afebrile
PDMP: No recently prescribed medication
CT chest-bilateral pneumonia
CT head-bilateral maxillary sinus opacification compatible with at least chronic inflammatory changes, left greater than right. Cannot exclude left maxillary sinus air-fluid level such as superimposed acute sinusitis.
Brain MRI [facility](12/04/2023) done for headache, right-sided weakness, chest pain, hypertension, hyperlipidemia showed no acute infarcts, moderate diffuse cerebral and cerebellar volume loss and C3-C4 DJD causing mild to moderate spinal cord
compression
Labs: Mg-1.9, sodium�132�134
PMH:CAD, HTN, DLP, HFrEF, congenital long QT syndrome, anemia, history of GI bleed
PSH: L3-L5 laminectomy, CABG, bilateral cataract surgery, PTCI, SMA PTCI
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
FH: Not contributory to current presentation
All:NKDA
ROS: Constitutional: Negative. Negative for chills, fever and unexpected weight change.
HENT: Positive for poor hearing, left ear pain, tinnitus
Eyes: Negative. Negative for photophobia, pain and visual disturbance.
Respiratory: Positive for cough and dyspnea
Cardiovascular: Positive for chronic chest pain
Gastrointestinal: Negative for abdominal pain and vomiting.
Endocrine: Negative. Negative for cold intolerance.
Genitourinary: Negative for dysuria, flank pain and urgency.
Musculoskeletal: Negative for back pain, gait problem, neck pain and neck stiffness.
Skin: Negative for rash.
Allergic/Immunologic: Negative. Negative for immunocompromised state.
Neurological: Positive for headache
Psychiatric/Behavioral: Negative for behavioral problems, confusion and hallucinations.
General: Well developed. In no acute distress.
Cardio: Regular rate and rhythm without murmur. Extremities are without cyanosis or edema.
Neuro:
Mental Status: Alert, oriented to person, place, and date. Normal attention and recall. Good fund of knowledge. Follows complex requests across the midline. Comprehension, naming, and repetition intact. Immediate recall 3/3.
Cranial Nerves: Pupils are equally round, surgical. EOMs full. Visual pino full to confrontation. No ptosis. No nystagmus. V1-V3 intact to light touch and pinprick bilaterally, symmetric. Face symmetric. Impaired hearing AU. The palate
elevated well. No dysarthria.
Motor: Normal bulk and tone. No pronator or arm drift. Strength 5/5 throughout. No clonus.
Coordination: No dysmetria or tremor.
Gait: deferred
Assessment and Plan:
I. Secondary headache. Rule out cerebral spinal brain thrombosis in view of refractory headache and sinus disease
II. Cervical spondylitic myelopathy
III. Sinus disease
-Telemetry monitoring
-Avoid hypoxia and cerebral hypoperfusion
-ENT consult
-MRV head
-Please check TFTs, urine tox
-Continue symptomatic treatment, avoid opioids
-Will follow
I personally reviewed all radiology and labs along with past medical records pertinent to current medical problems. Total time spent in patient care is 60 minutes.
Thank you for allowing us to participate in the care of this patient. We will continue to follow. Please do not hesitate to contact us with any questions or concerns.
Subjective/Objective
Subjective Data
Date of Service: October 07, 2024
Objective Data
Vital Signs
Temp Pulse Resp BP Pulse Ox
36.3 C 56 18 102/56 96
10/07/24 11:44 10/07/24 11:44 10/07/24 11:44 10/07/24 11:44 10/07/24 11:44
Lab Results
10/07/24 13:08
10/07/24 13:08
Sodium 134 mmol/L (135-145) L 10/07/24 13:08
Potassium 4.2 mmol/L (3.5-5.1) 10/07/24 13:08
BUN 32 mg/dl (9-20) H 10/07/24 13:08
Glucose 102 mg/dl (70-99) H 10/07/24 13:08
Calcium 7.6 mg/dl (8.4-10.2) L 10/07/24 13:08
Yvq-S-Fyakwszzovp Pept 2010 pg/ml 10/06/24 06:07
Patient Allergies
No Known Allergies Allergy (Verified 09/01/24 08:36)
Medications
-
Active Medications
Generic Name Dose Route Start Last Admin
Trade Name Freq PRN Reason Stop Dose Admin
Acetaminophen 1,000 mg 10/06/24 16:00 10/07/24 08:44
Acetaminophen 500 Mg Tablet PO 11/03/24 15:59 1,000 mg
Q8H JOSH Administration
Albuterol/Ipratropium 3 ml 10/04/24 18:00 10/05/24 22:32
Ipratropium 0.5/Albuterol 3 Mg (3 Ml Ampul) INH 3 ml
R Q4HPRN PRN Administration
sob/wheezing
Protocol
Alprazolam 0.25 mg 10/06/24 11:19 10/06/24 23:23
Alprazolam 0.25 Mg Tablet PO 11/03/24 11:18 0.25 mg
Q8HPRN PRN Administration
anxiety
Aspirin 81 mg 10/05/24 08:00 10/07/24 08:44
Aspirin 81 Mg (Enteric Coated) Tablet PO 11/02/24 07:59 81 mg
DAILY JOSH Administration
Carvedilol 6.25 mg 10/04/24 20:00 10/07/24 08:47
Carvedilol 6.25 Mg Tablet PO 11/01/24 19:59 6.25 mg
BID JOSH Administration
Ceftriaxone Sodium 1,000 mg 10/05/24 14:00 10/07/24 13:47
Ceftriaxone 1000 Mg / 10 Ml Vial IV 1,000 mg
Q24H JOSH Administration
Doxycycline Hyclate 100 mg 10/06/24 11:00 10/07/24 08:44
Doxycycline 100 Mg Capsule PO 100 mg
BID JOSH Administration
Enoxaparin Sodium 40 mg 10/04/24 18:00 10/06/24 16:24
Enoxaparin Sodium 40 Mg/0.4 Ml Syringe SC 11/01/24 17:59 40 mg
QPM JOSH Administration
Gabapentin 100 mg 10/04/24 20:00 10/07/24 08:44
Gabapentin 100 Mg Capsule PO 11/01/24 19:59 100 mg
BID JOSH Administration
Guaifenesin/Codeine Phosphate 5 ml 10/07/24 13:00 10/07/24 13:48
Guaifenesin/Codeine Solution (200 Mg/20 Mg) 10 Ml Cup PO 11/04/24 12:59 5 ml
QID JOSH Administration
Isosorbide Mononitrate 90 mg 10/05/24 08:00 10/07/24 08:43
Isosorbide Mononitrate 30 Mg Extended Release Tablet PO 11/02/24 07:59 90 mg
DAILY JOSH Administration
Magnesium 84 mg 10/05/24 08:00 10/07/24 08:44
Magnesium Lactate 84 Mg Tablet PO 11/02/24 07:59 84 mg
DAILY JOSH Administration
Melatonin 5 mg 10/04/24 22:00 10/06/24 21:06
Melatonin 5 Mg Tablet PO 11/01/24 21:59 5 mg
HS JOSH Administration
Nitroglycerin 0.4 mg 10/04/24 15:22 10/07/24 08:55
Nitroglycerin 0.4 Mg Sl Tablet SL 11/01/24 15:21 0.4 mg
Q5MPRN PRN Administration
chest pain
Oxycodone HCl 5 mg 10/05/24 18:31 10/07/24 13:47
Oxycodone 5 Mg Regular Release Tablet PO 10/19/24 18:30 5 mg
Q4HPRN PRN Administration
severe pain
Pantoprazole Sodium 40 mg 10/04/24 20:00 10/07/24 08:44
Pantoprazole 40 Mg Delayed Release Tablet PO 11/01/24 19:59 40 mg
BID JOSH Administration
Potassium Chloride 20 meq 10/04/24 20:00 10/06/24 07:48
Potassium Chloride 20 Meq Extended Release Tablet PO 11/01/24 19:59 20 meq
BID JOSH Administration
Rosuvastatin Calcium 20 mg 10/04/24 20:00 10/07/24 08:44
Rosuvastatin (Crestor) 20 Mg Tablet PO 11/01/24 19:59 20 mg
BID JOSH Administration
Sodium Chloride 0 flush 10/04/24 21:00
Sodium Chloride 0.9% (Flush) Syringe IV 11/01/24 20:59
PER PROTOCOL JOSH
Sterile Water 10 ml 10/05/24 14:00 10/07/24 13:47
Sterile Water For Injection 10 Ml Vial IV 11/02/24 13:59 10 ml
Q24H JOSH Administration
Torsemide 40 mg 10/04/24 16:00 10/06/24 07:48
Torsemide 20 Mg Tablet PO 11/01/24 15:59 Not Given
BID@0800,1600 JOHS
Home Medications
�Medication �Instructions �Recorded
aspirin 81 mg tablet,delayed 81 mg PO DAILY Blood Clot 11/22/20
release Prevention/Tx
rosuvastatin 20 mg tablet 20 mg PO BID High Cholesterol 11/04/23
pantoprazole 40 mg tablet,delayed 40 mg PO BID Gastrointestinal Issue 12/01/23
release
isosorbide mononitrate 30 mg 30 mg PO TID Heart 04/26/24
tablet,extended release 24 hr Disease/Condition
torsemide 20 mg tablet 40 mg PO BID Fluid 04/26/24
Retention/Swelling
carvedilol 3.125 mg tablet (Coreg) 6.25 mg PO DAILY Blood Pressure 09/01/24
gabapentin 100 mg capsule 100 mg PO BID pain 09/01/24
potassium chloride 20 mEq 20 meq PO BID Electrolyte Repletion 09/01/24
tablet,extended release
magnesium oxide 400 mg PO DAILY Supplement 10/04/24
Vital Signs and Labs
-
Vital Signs and Labs:
Vital Signs
Temp Pulse Resp BP Pulse Ox
36.3 C 59 20 99/57 95
10/07/24 15:26 10/07/24 15:26 10/07/24 15:26 10/07/24 15:26 10/07/24 15:26
Lab Results
10/07/24 13:08
10/07/24 13:08
Sodium 134 mmol/L (135-145) L 10/07/24 13:08
Potassium 4.2 mmol/L (3.5-5.1) 10/07/24 13:08
BUN 32 mg/dl (9-20) H 10/07/24 13:08
Glucose 102 mg/dl (70-99) H 10/07/24 13:08
Calcium 7.6 mg/dl (8.4-10.2) L 10/07/24 13:08
Dmd-V-Plwlktaoemz Pept 2010 pg/ml 10/06/24 06:07
Medications
-
Medications:
Generic Name Dose Route Start Last Admin
Trade Name Freq PRN Reason Stop Dose Admin
Acetaminophen 1,000 mg 10/06/24 16:00 10/07/24 08:44
Acetaminophen 500 Mg Tablet PO 11/03/24 15:59 1,000 mg
Q8H JOSH Administration
Albuterol/Ipratropium 3 ml 10/04/24 18:00 10/05/24 22:32
Ipratropium 0.5/Albuterol 3 Mg (3 Ml Ampul) INH 3 ml
R Q4HPRN PRN Administration
sob/wheezing
Protocol
Alprazolam 0.25 mg 10/06/24 11:19 10/06/24 23:23
Alprazolam 0.25 Mg Tablet PO 11/03/24 11:18 0.25 mg
Q8HPRN PRN Administration
anxiety
Aspirin 81 mg 10/05/24 08:00 10/07/24 08:44
Aspirin 81 Mg (Enteric Coated) Tablet PO 11/02/24 07:59 81 mg
DAILY JOSH Administration
Carvedilol 6.25 mg 10/04/24 20:00 10/07/24 08:47
Carvedilol 6.25 Mg Tablet PO 11/01/24 19:59 6.25 mg
BID JOSH Administration
Ceftriaxone Sodium 1,000 mg 10/05/24 14:00 10/07/24 13:47
Ceftriaxone 1000 Mg / 10 Ml Vial IV 1,000 mg
Q24H JOSH Administration
Doxycycline Hyclate 100 mg 10/06/24 11:00 10/07/24 08:44
Doxycycline 100 Mg Capsule PO 100 mg
BID JOSH Administration
Enoxaparin Sodium 40 mg 10/04/24 18:00 10/06/24 16:24
Enoxaparin Sodium 40 Mg/0.4 Ml Syringe SC 11/01/24 17:59 40 mg
QPM JOSH Administration
Gabapentin 100 mg 10/04/24 20:00 10/07/24 08:44
Gabapentin 100 Mg Capsule PO 11/01/24 19:59 100 mg
BID JOSH Administration
Guaifenesin/Codeine Phosphate 5 ml 10/07/24 13:00 10/07/24 13:48
Guaifenesin/Codeine Solution (200 Mg/20 Mg) 10 Ml Cup PO 11/04/24 12:59 5 ml
QID JOSH Administration
Isosorbide Mononitrate 90 mg 10/05/24 08:00 10/07/24 08:43
Isosorbide Mononitrate 30 Mg Extended Release Tablet PO 11/02/24 07:59 90 mg
DAILY JOSH Administration
Magnesium 84 mg 10/05/24 08:00 10/07/24 08:44
Magnesium Lactate 84 Mg Tablet PO 11/02/24 07:59 84 mg
DAILY JOSH Administration
Melatonin 5 mg 10/04/24 22:00 10/06/24 21:06
Melatonin 5 Mg Tablet PO 11/01/24 21:59 5 mg
HS JOSH Administration
Nitroglycerin 0.4 mg 10/04/24 15:22 10/07/24 08:55
Nitroglycerin 0.4 Mg Sl Tablet SL 11/01/24 15:21 0.4 mg
Q5MPRN PRN Administration
chest pain
Oxycodone HCl 5 mg 10/05/24 18:31 10/07/24 13:47
Oxycodone 5 Mg Regular Release Tablet PO 10/19/24 18:30 5 mg
Q4HPRN PRN Administration
severe pain
Pantoprazole Sodium 40 mg 10/04/24 20:00 10/07/24 08:44
Pantoprazole 40 Mg Delayed Release Tablet PO 11/01/24 19:59 40 mg
BID JOSH Administration
Potassium Chloride 20 meq 10/04/24 20:00 10/06/24 07:48
Potassium Chloride 20 Meq Extended Release Tablet PO 11/01/24 19:59 20 meq
BID JOSH Administration
Rosuvastatin Calcium 20 mg 10/04/24 20:00 10/07/24 08:44
Rosuvastatin (Crestor) 20 Mg Tablet PO 11/01/24 19:59 20 mg
BID JOSH Administration
Sodium Chloride 0 flush 10/04/24 21:00
Sodium Chloride 0.9% (Flush) Syringe IV 11/01/24 20:59
PER PROTOCOL JOSH
Sterile Water 10 ml 10/05/24 14:00 10/07/24 13:47
Sterile Water For Injection 10 Ml Vial IV 11/02/24 13:59 10 ml
Q24H JOSH Administration
Torsemide 40 mg 10/04/24 16:00 10/06/24 07:48
Torsemide 20 Mg Tablet PO 11/01/24 15:59 Not Given
BID@0800,1600 JOSH
Home Medications
-
Home Medications
aspirin 81 mg tablet,delayed release 81 mg PO DAILY Blood Clot Prevention/Tx 11/22/20
rosuvastatin 20 mg tablet 20 mg PO BID High Cholesterol 11/04/23
pantoprazole 40 mg tablet,delayed release 40 mg PO BID Gastrointestinal Issue 12/01/23
isosorbide mononitrate 30 mg tablet,extended release 24 hr 30 mg PO TID Heart Disease/Condition 04/26/24
torsemide 20 mg tablet 40 mg PO BID Fluid Retention/Swelling 04/26/24
carvedilol 3.125 mg tablet (Coreg) 6.25 mg PO DAILY Blood Pressure 09/01/24
gabapentin 100 mg capsule 100 mg PO BID pain 09/01/24
potassium chloride 20 mEq tablet,extended release 20 meq PO BID Electrolyte Repletion 09/01/24
magnesium oxide 400 mg PO DAILY Supplement 10/04/24
[2024-10-07] MEDS: LOVENOX 40 MG SC (16:55)
[2024-10-07] MEDS: MELATONIN 5 MG PO (21:03)
[2024-10-07] MEDS: COREG PO (21:05)
[2024-10-08] VITALS (7 sets, daily range): BP systolic 90–106; BP diastolic 44–62
[2024-10-08] MEDS: TYLENOL 1000 MG PO ×4 (00:18→23:39)
[2024-10-08 00:57] LABS: Amphetamines Negative (Negative); Barbiturates Negative (Negative); Benzodiazepines Positive (Negative); Buprenorphine Negative (Negative); Cocaine Negative (Negative); Marijuana Negative (Negative); Methadone Negative (Negative); Methamphetamines Negative (Negative); Opiates Positive (Negative); Phencyclidine Negative (Negative); Tricyclic Antidepressants Negative (Negative)
[2024-10-08 01:38] LABS: Fentanyl, Urine Negative (Negative)
[2024-10-08 07:10] LABS: % Basophils 0.2 % (0-2); % Eosinophils 0.5 % (0-6); % Immature Granulocytes 1.7 % (0-0.5); % Lymphocytes 15.2 % (20.5-51.1); % Monocytes 8.9 % (1.7-9.3); % Neutrophils 73.5 % (42.2-75.2); Absolute Immature Granulocytes 0.1 10^3/uL (0-0.05); Absolute Lymphocytes 0.9 10^3/uL (1.2-3.4); Absolute Monocytes 0.5 10^3/uL (0.1-0.6); Absolute Neutrophils 4.4 10^3/uL (1.4-6.5); Hematocrit 30.1 % (39.0-52.0); Hemoglobin 10.3 g/dL (13.0-18.0); Mean Corp Hgb Conc. 34.2 g/dL (33.0-37.0); Mean Corpuscular Hgb 34.3 pg (27.0-31.0); Mean Corpuscular Volume 100.3 fL (80.0-94.0); Mean Platelet Volume 10.3 fL (7.4-10.4); Nucleated Red Blood Cells % 0 % (-); Platelet Count 179 10^3/uL (130-400); Red Cell Dist. Width 13.9 % (11.5-14.5); White Blood Cell Count 5.9 10^3/uL (4.8-10.8)
[2024-10-08 07:30] LABS: Blood Urea Nitrogen 22 mg/dl (9-20); Calcium 7.8 mg/dl (8.4-10.2); Carbon Dioxide 25 mmol/L (22-30); Chloride 106 mmol/L (98-107); Estimated Creatinine Clearance 90 ml/min; Glucose 93 mg/dl (70-99); Potassium 4.3 mmol/L (3.5-5.1); Sodium 136 mmol/L (135-145); eGFR > 60.00
[2024-10-08 08:02] LABS: TSH Reflex To Free T4 4.82 uIU/ml (0.47-4.68)
[2024-10-08 08:30] LABS: Free T4 2.01 ng/dl (0.78-2.19)
[2024-10-08] MEDS: ROBITUSSIN AC 5 ML PO ×4 (08:56→21:09)
[2024-10-08] MEDS: MAG-TAB SR 84 MG PO (08:56)
[2024-10-08] MEDS: IMDUR (EXTENDED RELEASE) PO (08:56)
[2024-10-08] MEDS: VIBRAMYCIN 100 MG PO ×2 (08:57→21:09)
[2024-10-08] MEDS: ASPIR LOW (ENTERIC COATED) 81 MG PO (08:57)
[2024-10-08] MEDS: NEURONTIN 100 MG PO ×2 (08:57→21:10)
[2024-10-08] MEDS: PROTONIX 40 MG PO ×2 (08:57→21:09)
[2024-10-08] MEDS: CRESTOR 20 MG PO ×2 (08:57→21:09)
[2024-10-08] MEDS: COREG PO ×2 (08:57→21:10)
--- NOTE | 2024-10-08 09:07 | W.PN.HOSP.TC ---
Today's Communication/Plan
-
Antibiotics. ENT eval
Assessment / Plan
Assessment / Plan
Physical exam:
General: Acutely ill
HEENT: Normocephalic, Atraumatic and Moist Mucous Membranes
Respiratory: Bilateral rhonchi at the bases more pronounced on the left; Negative Wheezes, Rales
Cardiac: Regular Rhythm and S1/S2, diastolic murmur
GI: Soft, Nontender and Nondistended
Musculoskeletal: No Clubbing, No Cyanosis and No Edema
Neuro: Awake, Alert and Oriented, no gross neurological deficit
Psych: Calm
A/P:
Pneumonia:
Continue IV Rocephin and doxycycline
WBC 5.9 today
Influenza and COVID-19 negative
Legionella and strep negative
Added stronger cough suppressant, guaifenesin with codeine and now switch to scheduled doses at least temporarily.
CTA of the chest negative for PE and it confirmed multilobar community-acquired pneumonia.
PT OT eval
Chronic stable angina plus atypical chest pain:
Troponin x 3 normal
EKG no new signs of ischemia-old Q waves consistent with old inferior OH.
Continue nitro as needed
Added Toradol but discontinued given DENICE.
Cardiology evaluated the patient and felt this is non-cardiac. Cardio will reevaluate the patient today again. Discussed with cardiology in person on 10/07
Headache:
Symptomatic treatment, including IV Depakote x 1, schedule Tylenol. Given IV fluids. Can resume NSAIDs if needed now that renal function improved.
CT of the head unremarkable.
Will request neurology eval in light of persistent h/a despite all treatment--> neurology evaluated the patient on 10/07 and appreciated input and also requested ENT eval. ENT saw the patient today on 10/08 and appreciated input. Please see their
notes for further details.
Continue supportive care
Sinusitis:
On antibiotics
Supportive care
ENT eval appreciated
No signs of otitis
DENICE:
Resolved
s/p ivf
Hold torsemide and potassium supplements and NSAIDs
Check bladder scan post-void residuals
Recheck renal function in a.m.
Acute hypoxic respiratory failure ruled out.
Hypotension:
Continue to monitor
Gentle hydration with IV fluids but now stopped and encourage oral intake
Holding parameters for antihypertensives
Cardiology consult as well
Leukocytosis:
Reactive due to steroids
18.5--> 5.9
CAD:
History of CABG and multiple stents in the past
Continue home ischemic regimen, aspirin, blockers, long-acting nitrates, statins.
Continue cardiac monitoring
Chronic diastolic congestive heart failure:
Appears euvolemic
Holding oral torsemide 40 mg twice a day due to recent DENICE and will resume tomorrow if appropriate
Continue beta-blockers
Continue to monitor ins and outs and daily weight
Hypertension:
Continue home meds
Monitor blood pressure closely
Hyperlipidemia:
Continue statin
Hypokalemia:
Improving
Continue K and Mg supplement
DVT prophylaxis:
Lovenox SQ
CODE STATUS:
Full code
Time spent 52 minutes
Anticipated Discharge: 24 - 48 hours
Subjective/Interval History
-
Date of Service: October 08, 2024
Patient still having headache but less. Patient still having chest pain but also less. Less shortness of breath. Still having cough. Afebrile
Objective Data
-
Labs:
Laboratory Results
10/08/24
06:43
WBC 5.9
Hgb 10.3 L
Hct 30.1 L
Plt Count 179
Sodium 136
Potassium 4.3
Chloride 106
Carbon Dioxide 25
BUN 22 H
Creatinine 0.8
Glucose 93
Calcium 7.8 L
Vital Signs:
Vital Signs
Temp Pulse Resp BP Pulse Ox
97.8 F 66 16 94/58 97
10/08/24 07:00 10/08/24 07:00 10/08/24 07:00 10/08/24 07:00 10/08/24 07:00
I&O
10/07/24 10/08/24 10/09/24
06:59 06:59 06:59
Intake Total 2220 / 2220 920 / 920
Output Total 920 / 920 700 / 700
Balance 1300 / 1300 220 / 220
--- NOTE | 2024-10-08 09:43 | CON.MD ---
Consultation - Medical
-
Chief complaint: Asked to see patient regarding left ear pain and headaches
History of present illness: This 68-year-old gentleman had been fairly stable until about 2-1/2 weeks ago when he developed the flu. He ended up with pneumonia and now has facial pressure as well as left ear pain. He has nasal congestion and
drainage. He is currently on ceftriaxone. CT scan of the sinuses was performed several days ago and this showed evidence of bilateral maxillary sinusitis with air-fluid levels. The patient had previous CT scans which did not show evidence of
sinus disease. He states that he feels that head pain primarily in the frontal area. He also has left ear pain that is lancinating. That has been going on for about the same amount of time. He has not had similar symptoms. He does not have a
history of headaches. He also gives a history of double vision in his right eye only. He was seen by neurology already. The patient does not have a strong history of sinusitis.
Past medical history:
Chronic medical problems: History of hypertension, history of heart failure, history of mesenteric ischemia, history of left arm paresthesia, history of ischemic cardiomyopathy, history of gastroesophageal reflux disease, history of myocardial
infarction, history of hyperlipidemia, history of hypertension, history of coronary artery disease
Allergies: No known drug allergies
Home medications: Aspirin 81 mg p.o. daily, carvedilol 6.25 mg p.o. daily, gabapentin 100 mg p.o. twice daily, isosorbide mononitrate 30 mg p.o. 3 times daily, magnesium oxide 400 mg p.o. daily, pantoprazole 40 mg p.o. twice daily, potassium
chloride 20 mEq p.o. twice daily, rosuvastatin 20 mg p.o. twice daily, torsemide 40 mg p.o. twice daily
Hospitalizations: The patient has been hospitalized for falls and for pneumonia with headaches and ear pain currently.
Family history: Was asked and is noncontributory for this problem
Review of systems: Positive for headaches in the frontal area, positive for double vision in right eye only, positive for lancinating intermittent left ear pain, positive for purulent drainage and some bleeding from nose, positive for left ear
plugged sensation,
Physical examination:
Head: Atraumatic and normocephalic
Eyes: Extraocular movements are intact, pupils are equal and reactive to light
Ears: Clear bilaterally without evidence of infection or fluid. No significant cerumen impactions are seen. Eardrums are clear.
Nose: The patient has a mild deviation of the septum toward the right side with some dry mucous/crusting within the nose, adequate visualization was not possible with a speculum
Oral cavity/oropharynx: The patient has malocclusion and has significant evidence of bruxism and tongue thrust with bite jo on his buccal mucosa and pressure jo on his tongue from tongue thrust. He also has significant wear of his anterior
teeth secondary to bruxism.
Neck: Supple without adenopathy
Cranial nerves: 2 through 12 are intact
Thyroid gland: Normal
Salivary glands: Normal to examination
Voice: Normal tone and volume
Procedure: Nasal endoscopy
The patient underwent a diagnostic nasal endoscopy with a culture obtained from the left maxillary sinus. The patient was noted to have deviation of the septum toward the right side anteriorly. He has a good deal of crusting with more dryness and
a little bit of dried blood on the septum on the right side. No active bleeding is seen. The left side showed obvious purulent drainage from his maxillary sinus which was cultured using the nasal endoscope. Nasopharynx is clear.
CT scan head: Results were discussed with the patient. He shows evidence of maxillary sinus disease but does not show involvement of the other sinuses. In the maxillary sinuses he has mucosal thickening and air-fluid levels. Previous CT scans did
not show evidence of sinus disease.
Impression: 1. acute bilateral maxillary sinusitis
2. Dryness in nose secondary to nasal cannula oxygen
3. bruxism and tongue thrust.
Plan: This 68-year-old gentleman had the flu a month ago and now has acute sinusitis. His headaches are not over the maxillary sinuses and his ear pain is not accompanied by evidence of an ear infection. A culture was taken of his left maxillary
sinus drainage to possibly guide any required changes in antibiotics. The patient is currently on ceftriaxone which should be good coverage. I wrote for some saline nasal spray which should be helpful in terms of the dryness in his nose. I think
the nasal cannula is probably drying out the nose even further and this may impede drainage of the sinus. It is not unlikely that his ear pain and headaches are from bruxism and tongue thrust. I discussed that with him. He needs to relax his jaw
and avoid clenching his teeth. He should avoid chewing and crunchy foods.
[2024-10-08] MEDS: OCEAN, SALINE MIST 1 SPRAYS NASAL (10:56)
[2024-10-08] MEDS: STERILE WATER FOR INJECTION 10 ML IV (13:28)
[2024-10-08] MEDS: ROCEPHIN 1000 MG IV (13:28)
[2024-10-08] MEDS: NITROSTAT (SUBLINGUAL) 0.4 MG SL ×2 (15:33→15:45)
[2024-10-08] MEDS: LOVENOX 40 MG SC (17:50)
[2024-10-08 17:52] LABS: Troponin I < 0.012 ng/ml
[2024-10-08] MEDS: MELATONIN 5 MG PO (21:09)
[2024-10-09 03:27] VITALS: BP 147/71
[2024-10-09 06:57] LABS: % Basophils 0.4 % (0-2); % Eosinophils 1.9 % (0-6); % Immature Granulocytes 2.1 % (0-0.5); % Lymphocytes 17.9 % (20.5-51.1); % Monocytes 8.1 % (1.7-9.3); % Neutrophils 69.6 % (42.2-75.2); Absolute Eosinophils 0.1 10^3/uL (0-0.7); Absolute Immature Granulocytes 0.1 10^3/uL (0-0.05); Absolute Monocytes 0.5 10^3/uL (0.1-0.6); Hematocrit 28.8 % (39.0-52.0); Hemoglobin 10.1 g/dL (13.0-18.0); Mean Corp Hgb Conc. 35.1 g/dL (33.0-37.0); Mean Corpuscular Hgb 34.8 pg (27.0-31.0); Mean Corpuscular Volume 99.3 fL (80.0-94.0); Mean Platelet Volume 10.5 fL (7.4-10.4); Nucleated Red Blood Cells % 0 % (-); Platelet Count 174 10^3/uL (130-400); Red Cell Dist. Width 13.7 % (11.5-14.5); White Blood Cell Count 5.7 10^3/uL (4.8-10.8)
[2024-10-09 07:19] LABS: Blood Urea Nitrogen 17 mg/dl (9-20); Calcium 7.7 mg/dl (8.4-10.2); Carbon Dioxide 26 mmol/L (22-30); Chloride 104 mmol/L (98-107); Estimated Creatinine Clearance 90 ml/min; Glucose 118 mg/dl (70-99); Potassium 4.5 mmol/L (3.5-5.1); Sodium 137 mmol/L (135-145); eGFR > 60.00
[2024-10-09 07:27] VITALS: BP 96/57
[2024-10-09] MEDS: IMDUR (EXTENDED RELEASE) PO (07:54)
[2024-10-09] MEDS: ASPIR LOW (ENTERIC COATED) 81 MG PO (07:54)
[2024-10-09] MEDS: CRESTOR 20 MG PO ×2 (07:54→21:19)
[2024-10-09] MEDS: ROBITUSSIN AC 5 ML PO (07:54)
[2024-10-09] MEDS: PROTONIX 40 MG PO ×2 (07:55→21:19)
[2024-10-09] MEDS: COREG PO ×2 (07:55→21:20)
[2024-10-09] MEDS: TYLENOL 1000 MG PO ×3 (07:55→22:51)
[2024-10-09] MEDS: MAG-TAB SR 84 MG PO (07:55)
[2024-10-09] MEDS: VIBRAMYCIN 100 MG PO ×2 (07:55→21:19)
[2024-10-09] MEDS: NEURONTIN 100 MG PO ×2 (07:56→21:19)
[2024-10-09] MEDS: OCEAN, SALINE MIST 50 SPRAYS NASAL (07:56)
--- NOTE | 2024-10-09 08:33 | W.PN.HOSP.TC ---
Today's Communication/Plan
-
IV antibiotics. Resume diuretics.
Assessment / Plan
Assessment / Plan
Physical exam:
General: Acutely ill
HEENT: Normocephalic, Atraumatic and Moist Mucous Membranes
Respiratory: Bilateral rhonchi at the bases more pronounced on the left; Negative Wheezes. Few crackles in the bases today.
Cardiac: Regular Rhythm and S1/S2, diastolic murmur
GI: Soft, Nontender and Nondistended
Musculoskeletal: Bilateral trace edema lower extremity. No Clubbing, No Cyanosis
Neuro: Awake, Alert and Oriented, no gross neurological deficit
Psych: Calm
A/P:
Pneumonia:
Improving
Continue IV Rocephin and oral doxycycline
WBC 5.7 today
Influenza and COVID-19 negative
Legionella and strep negative
Continue guaifenesin with codeine and add Tessalon Perles.
CTA of the chest negative for PE and it confirmed multilobar community-acquired pneumonia.
PT recommends home versus rehab
OT eval
Chronic stable angina plus atypical chest pain:
Troponin x 3 normal
EKG no new signs of ischemia-old Q waves consistent with old inferior CO.
Continue nitro as needed
Added Toradol but discontinued given DENICE.
Cardiology evaluated the patient and felt this is non-cardiac.
Headache:
Symptomatic treatment, including IV Depakote x 1, Reglan, schedule Tylenol. Can resume NSAIDs if needed now that renal function improved.
CT of the head unremarkable.
Requested neurology eval in light of persistent h/a despite all treatment--> neurology evaluated the patient on 10/07 and appreciated input and also requested ENT eval. ENT saw the patient on 10/08 and appreciated input. Please see their notes for
further details.
Continue supportive care
Sinusitis:
On antibiotics
Supportive care
ENT eval appreciated
No signs of otitis
DENICE:
Resolved
s/p ivf
Hold torsemide and potassium supplements and NSAIDs
Check bladder scan post-void residuals
Recheck renal function in a.m.
Anxiety:
Xanax as needed
Acute hypoxic respiratory failure ruled out-->Wean oxygen as able.
Hypotension:
Resolved
Continue to monitor
Off IV fluid
Holding parameters for antihypertensives
Cardiology consult as well
Leukocytosis:
Reactive due to steroids
18.5--> 5.7
CAD:
History of CABG and multiple stents in the past
Continue home ischemic regimen, aspirin, blockers, long-acting nitrates, statins.
Continue cardiac monitoring
Chronic diastolic congestive heart failure:
Resume oral torsemide 40 mg twice a day since he is starting to have some peripheral edema.
Continue beta-blockers
Continue to monitor ins and outs and daily weight
Hypertension:
Continue home meds
Monitor blood pressure closely
Hyperlipidemia:
Continue statin
Hypokalemia:
Improving
Continue K and Mg supplement
DVT prophylaxis:
Lovenox SQ
CODE STATUS:
Full code
Anticipated Discharge: 24 - 48 hours
Subjective/Interval History
-
Date of Service: October 09, 2024
Patient still complains of cough and cp and h/a and shortness of breath although overall feels improving. Remains afebrile. On supplemental oxygen.
Objective Data
-
Labs:
Laboratory Results
10/09/24
06:16
WBC 5.7
Hgb 10.1 L
Hct 28.8 L
Plt Count 174
Sodium 137
Potassium 4.5
Chloride 104
Carbon Dioxide 26
BUN 17
Creatinine 0.8
Glucose 118 H
Calcium 7.7 L
Vital Signs:
Vital Signs
Temp Pulse Resp BP Pulse Ox
97.9 F 59 18 96/57 98
10/09/24 07:27 10/09/24 07:27 10/09/24 07:27 10/09/24 07:27 10/09/24 07:27
I&O
10/08/24 10/09/24 10/10/24
06:59 06:59 06:59
Intake Total 920 / 920 1200 / 1200
Output Total 700 / 700 1050 / 1050
Balance 220 / 220 150 / 150
[2024-10-09] MEDS: XANAX 0.25 MG PO (10:41)
[2024-10-09] MEDS: DEMADEX 40 MG PO ×2 (10:42→15:55)
[2024-10-09 11:33] VITALS: BP 100/59
--- NOTE | 2024-10-09 13:05 | W.PN.NEURO.1 ---
Today's Communication / Plan
-
.
Subjective/Objective
Subjective Data
Date of Service: October 09, 2024
Neurology follow-up note.
CC: ' I feel terrible'
Mr. Mejia endorses bifrontal 9 out of 10 pressure pain. No reports of change in vision, strength or sensation. The patient states that his left ear pain is gone.
MRV head (10/07/2024) showed no evidence of cerebral venous sinus thrombosis
MAR: Acetaminophen 1000 mg QD
PMH:CAD, HTN, DLP, HFrEF, congenital long QT syndrome, anemia, history of GI bleed
PSH: L3-L5 laminectomy, CABG, bilateral cataract surgery, PTCI, SMA PTCI
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
FH: Not contributory to current presentation
All:NKDA
ROS: Constitutional: Negative. Negative for chills, fever and unexpected weight change.
HENT: Positive for poor hearing, left ear pain, tinnitus
Eyes: Negative. Negative for photophobia, pain and visual disturbance.
Respiratory: Positive for cough and dyspnea
Cardiovascular: Positive for chronic chest pain
Gastrointestinal: Negative for abdominal pain and vomiting.
Endocrine: Negative. Negative for cold intolerance.
Genitourinary: Negative for dysuria, flank pain and urgency.
Musculoskeletal: Negative for back pain, gait problem, neck pain and neck stiffness.
Skin: Negative for rash.
Allergic/Immunologic: Negative. Negative for immunocompromised state.
Neurological: Positive for headache
Psychiatric/Behavioral: Negative for behavioral problems, confusion and hallucinations.
General: Well developed. In no acute distress.
Cardio: Regular rate and rhythm without murmur. Extremities are without cyanosis or edema.
Neuro:
Mental Status: Alert, oriented to person, place, and date. Normal attention and recall. Good fund of knowledge. Follows complex requests across the midline. Comprehension, naming, and repetition intact. Immediate recall /.
Cranial Nerves: Pupils are equally round, surgical. EOMs full. Visual pino full to confrontation. No ptosis. No nystagmus. V1-V3 intact to light touch and pinprick bilaterally, symmetric. Face symmetric. Impaired hearing AU. The palate
elevated well. No dysarthria.
Motor: Normal bulk and tone. No pronator or arm drift. Strength 5/5 throughout. No clonus.
Coordination: No dysmetria or tremor.
Gait: deferred
Assessment and Plan:
I. Secondary headache.
II. Cervical spondylitic myelopathy
III. Parasinus disease
-Telemetry monitoring
-ENT/ID follow up
-Continue symptomatic treatment, avoid opioids
-Consider starting Topamax 25 mg twice daily if no clinical improvement.
-Please recall neurology service with any questions or concerns
I personally reviewed all radiology and labs along with past medical records pertinent to current medical problems. Total time spent in patient care is 36 minutes.
Thank you for allowing us to participate in the care of this patient. Please do not hesitate to contact us with any questions or concerns
Objective Data
Vital Signs
Temp Pulse Resp BP Pulse Ox
36.6 C 66 16 100/59 93
10/09/24 11:33 10/09/24 11:33 10/09/24 11:33 10/09/24 11:33 10/09/24 11:33
Lab Results
10/09/24 06:16
10/09/24 06:16
Sodium 137 mmol/L (135-145) 10/09/24 06:16
Potassium 4.5 mmol/L (3.5-5.1) 10/09/24 06:16
BUN 17 mg/dl (9-20) 10/09/24 06:16
Glucose 118 mg/dl (70-99) H 10/09/24 06:16
Calcium 7.7 mg/dl (8.4-10.2) L 10/09/24 06:16
Dns-E-Ztediadflpq Pept 2009 pg/ml 10/06/24 06:07
Ur Buprenorphine Negative (Negative) 10/08/24 00:21
Patient Allergies
No Known Allergies Allergy (Verified 09/01/24 08:36)
Vital Signs and Labs
-
Vital Signs and Labs:
Vital Signs
Temp Pulse Resp BP Pulse Ox
36.6 C 66 16 100/59 93
10/09/24 11:33 10/09/24 11:33 10/09/24 11:33 10/09/24 11:33 10/09/24 11:33
Lab Results
10/09/24 06:16
10/09/24 06:16
Sodium 137 mmol/L (135-145) 10/09/24 06:16
Potassium 4.5 mmol/L (3.5-5.1) 10/09/24 06:16
BUN 17 mg/dl (9-20) 10/09/24 06:16
Glucose 118 mg/dl (70-99) H 10/09/24 06:16
Calcium 7.7 mg/dl (8.4-10.2) L 10/09/24 06:16
Qnz-G-Tvdhcwmyxjt Pept 2009 pg/ml 10/06/24 06:07
Ur Buprenorphine Negative (Negative) 10/08/24 00:21
Medications
-
Medications:
Generic Name Dose Route Start Last Admin
Trade Name Freq PRN Reason Stop Dose Admin
Acetaminophen 1,000 mg 10/06/24 16:00 10/09/24 07:55
Acetaminophen 500 Mg Tablet PO 11/03/24 15:59 1,000 mg
Q8H JOSH Administration
Albuterol/Ipratropium 3 ml 10/04/24 18:00 10/05/24 22:32
Ipratropium 0.5/Albuterol 3 Mg (3 Ml Ampul) INH 3 ml
R Q4HPRN PRN Administration
sob/wheezing
Protocol
Alprazolam 0.25 mg 10/09/24 10:35 10/09/24 10:41
Alprazolam 0.25 Mg Tablet PO 11/06/24 10:34 0.25 mg
Q8HPRN PRN Administration
anxiety
Aspirin 81 mg 10/05/24 08:00 10/09/24 07:54
Aspirin 81 Mg (Enteric Coated) Tablet PO 11/02/24 07:59 81 mg
DAILY JOSH Administration
Benzonatate 100 mg 10/09/24 16:00
Benzonatate 100 Mg Capsule PO 11/06/24 15:59
TID JOSH
Carvedilol 6.25 mg 10/04/24 20:00 10/09/24 07:55
Carvedilol 6.25 Mg Tablet PO 11/01/24 19:59 Not Given
BID JOSH
Ceftriaxone Sodium 1,000 mg 10/05/24 14:00 10/08/24 13:28
Ceftriaxone 1000 Mg / 10 Ml Vial IV 1,000 mg
Q24H JOSH Administration
Doxycycline Hyclate 100 mg 10/06/24 11:00 10/09/24 07:55
Doxycycline 100 Mg Capsule PO 100 mg
BID JOSH Administration
Enoxaparin Sodium 40 mg 10/04/24 18:00 10/08/24 17:50
Enoxaparin Sodium 40 Mg/0.4 Ml Syringe SC 11/01/24 17:59 40 mg
QPM JOSH Administration
Gabapentin 100 mg 10/04/24 20:00 10/09/24 07:56
Gabapentin 100 Mg Capsule PO 11/01/24 19:59 100 mg
BID JOSH Administration
Guaifenesin/Codeine Phosphate 5 ml 10/09/24 12:00
Guaifenesin/Codeine Solution (200 Mg/20 Mg) 10 Ml Cup PO 11/06/24 11:59
QIDPRN PRN
cough
Isosorbide Mononitrate 90 mg 10/05/24 08:00 10/09/24 07:54
Isosorbide Mononitrate 30 Mg Extended Release Tablet PO 11/02/24 07:59 Not Given
DAILY JOSH
Magnesium 84 mg 10/05/24 08:00 10/09/24 07:55
Magnesium Lactate 84 Mg Tablet PO 11/02/24 07:59 84 mg
DAILY JOSH Administration
Melatonin 5 mg 10/04/24 22:00 10/08/24 21:09
Melatonin 5 Mg Tablet PO 11/01/24 21:59 5 mg
HS JOSH Administration
Nitroglycerin 0.4 mg 10/04/24 15:22 10/08/24 15:45
Nitroglycerin 0.4 Mg Sl Tablet SL 11/01/24 15:21 0.4 mg
Q5MPRN PRN Administration
chest pain
Pantoprazole Sodium 40 mg 10/04/24 20:00 10/09/24 07:55
Pantoprazole 40 Mg Delayed Release Tablet PO 11/01/24 19:59 40 mg
BID JOSH Administration
Potassium Chloride 20 meq 10/04/24 20:00 10/06/24 07:48
Potassium Chloride 20 Meq Extended Release Tablet PO 11/01/24 19:59 20 meq
BID JOSH Administration
Rosuvastatin Calcium 20 mg 10/04/24 20:00 10/09/24 07:54
Rosuvastatin (Crestor) 20 Mg Tablet PO 11/01/24 19:59 20 mg
BID JOSH Administration
Sodium Chloride 0 flush 10/04/24 21:00
Sodium Chloride 0.9% (Flush) Syringe IV 11/01/24 20:59
PER PROTOCOL JOSH
Sodium Chloride 0 sprays 10/08/24 09:51 10/09/24 07:56
Sodium Chloride 0.65% Nasal [place] 45 Ml Bottle NASAL 11/05/24 09:50 50 sprays
Q2HPRN PRN Administration
sinusitis
Sterile Water 10 ml 10/05/24 14:00 10/08/24 13:28
Sterile Water For Injection 10 Ml Vial IV 11/02/24 13:59 10 ml
Q24H JOSH Administration
Torsemide 40 mg 10/09/24 10:30 10/09/24 10:42
Torsemide 20 Mg Tablet PO 11/06/24 10:29 40 mg
BID@0800,1600 JOSH Administration
Home Medications
-
Home Medications
aspirin 81 mg tablet,delayed release 81 mg PO DAILY Blood Clot Prevention/Tx 11/22/20
rosuvastatin 20 mg tablet 20 mg PO BID High Cholesterol 11/04/23
pantoprazole 40 mg tablet,delayed release 40 mg PO BID Gastrointestinal Issue 12/01/23
isosorbide mononitrate 30 mg tablet,extended release 24 hr 30 mg PO TID Heart Disease/Condition 04/26/24
torsemide 20 mg tablet 40 mg PO BID Fluid Retention/Swelling 04/26/24
carvedilol 3.125 mg tablet (Coreg) 6.25 mg PO DAILY Blood Pressure 09/01/24
gabapentin 100 mg capsule 100 mg PO BID pain 09/01/24
potassium chloride 20 mEq tablet,extended release 20 meq PO BID Electrolyte Repletion 09/01/24
magnesium oxide 400 mg PO DAILY Supplement 10/04/24
--- NOTE | 2024-10-09 14:32 | W.PN.CD ---
Today's Communication / Plan
-
cxr
BNP
continue torsemide
Impression / Plan
-
PNA:
-severe in that he is requiring hospitalization with O2 and IV abx
- management per primary
-Patient still with pain with cough and inspiration. Also with wheezes on exam.
-Check chest x-ray and follow-up BMP. Possible he could need some additional diuretic. Defer to primary team regarding additional assessment and management of wheezing..
-
DENICE:
Improved.
Chest pain:
-Challenging to assess he has daily sharp chest pains at home some of which he takes nitro for. Not clear if all of these represent angina. Now patient with increased chest pains that are sharp and worse with cough. At times it is tough for him
to separate different types of chest pain but clearly he reports that symptoms are worse with cough. Likely either having musculoskeletal or pleuritic pain related to coughing and pneumonia. Troponins remain negative. Continue treatment of
pneumonia pain control as directed by primary team.
Complex CAD with hx CABG and stenting:
-cardiac cath with Dr. Armijo 08/03/24 with stable coronary disease with a known occluded LAD, eccentric LM disease into LCX artery, no other arteries engaged during study- no hemodynamically significant CAD across the LM stenosis (iFR of LM into
circ 0.94)
-continue ASA, statin. Continue BB and Imdur as BP will tolerate. Of note, patient reports that he was on Ranexa in the past and his [facility] staff midwife stopped it due to an EKG change with it? Details unknown. I suspect related to chronically
prolonged QTc.
HFpEF (ICM with improved EF): chronic
-does not appear overloaded to assessment
-torsemide held with DENICE now resumed.
Hx SMA stent:
-on ASA, statin
Prolonged QTC- monitor, but chronic and stable
Mild/moderate AR: stable
Physical Exam
Vital Signs/Labs
Vital Signs
Temp Pulse Resp BP Pulse Ox
97.8 F 66 16 100/59 93
10/09/24 11:33 10/09/24 11:33 10/09/24 11:33 10/09/24 11:33 10/09/24 11:33
10/09/24 06:16
10/09/24 06:16
Magnesium 1.9 mg/dl (1.6-2.3) 10/06/24 06:07
Free T4 2.01 ng/dl (0.78-2.19) 10/08/24 06:43
10/04/24 10/06/24
11:58 06:07
Wwc-N-Kszxtjrvhge Pept 1819 2009
LAB Results
10/08/24
17:16
Troponin I < 0.012
Physical Exam
Constitutional: No acute distress
Cardiovascular: Rhythm & rate is regular
Respiratory: Wheeze Present and Other (pain with cough)
GI: Soft
Neuro/Psych: Alert
Data Reviewed
-
Date of Service: October 09, 2024
Medical Decision Making: Reviewed Test Results
Echo: Report Reviewed by me
Medical Tests (PFT, Pathology etc): Report Reviewed by me
Labs: Labs Reviewed by me
[2024-10-09] MEDS: STERILE WATER FOR INJECTION 10 ML IV (14:48)
[2024-10-09] MEDS: ROCEPHIN 1000 MG IV (14:48)
[2024-10-09 15:13] VITALS: BP 115/67
[2024-10-09 15:40] LABS: NT-proBNP 2140 pg/ml
[2024-10-09] MEDS: TESSALON PERLES 100 MG PO ×2 (16:06→21:19)
[2024-10-09] MEDS: LOVENOX 40 MG SC (17:15)
[2024-10-09 19:00] VITALS: BP 99/57
[2024-10-09] MEDS: KCL 20 MEQ PO (21:19)
[2024-10-09] MEDS: MELATONIN 5 MG PO (21:20)
[2024-10-09] MEDS: COMPAZINE 5 MG IV (22:51)
[2024-10-09 23:00] VITALS: BP 115/53
[2024-10-10] VITALS (8 sets, daily range): BP systolic 94–115; BP diastolic 55–69; PULSE 57; O2SAT 100; BMI 26.6
[2024-10-10] MEDS: PROTONIX 40 MG PO ×2 (06:34→20:28)
[2024-10-10 07:30] LABS: % Basophils 0.5 % (0-2); % Eosinophils 2.1 % (0-6); % Immature Granulocytes 1.3 % (0-0.5); % Lymphocytes 16.7 % (20.5-51.1); % Monocytes 7.4 % (1.7-9.3); Absolute Eosinophils 0.1 10^3/uL (0-0.7); Absolute Immature Granulocytes 0.1 10^3/uL (0-0.05); Absolute Monocytes 0.5 10^3/uL (0.1-0.6); Absolute Neutrophils 4.5 10^3/uL (1.4-6.5); Hematocrit 32.5 % (39.0-52.0); Hemoglobin 11.1 g/dL (13.0-18.0); Mean Corp Hgb Conc. 34.2 g/dL (33.0-37.0); Mean Corpuscular Hgb 33.9 pg (27.0-31.0); Mean Corpuscular Volume 99.4 fL (80.0-94.0); Mean Platelet Volume 10.2 fL (7.4-10.4); Nucleated Red Blood Cells % 0 % (-); Platelet Count 193 10^3/uL (130-400); Red Blood Cell Count 3.27 10^6/uL (4.70-6.10); Red Cell Dist. Width 13.8 % (11.5-14.5); White Blood Cell Count 6.2 10^3/uL (4.8-10.8)
[2024-10-10 07:56] LABS: Blood Urea Nitrogen 19 mg/dl (9-20); Calcium 7.6 mg/dl (8.4-10.2); Carbon Dioxide 34 mmol/L (22-30); Chloride 98 mmol/L (98-107); Estimated Creatinine Clearance 80 ml/min; Glucose 118 mg/dl (70-99); Magnesium 1.7 mg/dl (1.6-2.3); Potassium 3.8 mmol/L (3.5-5.1); Sodium 138 mmol/L (135-145); eGFR > 60.00
[2024-10-10] MEDS: VIBRAMYCIN 100 MG PO ×2 (09:32→20:28)
[2024-10-10] MEDS: NEURONTIN 100 MG PO ×2 (09:32→20:28)
[2024-10-10] MEDS: ASPIR LOW (ENTERIC COATED) 81 MG PO (09:32)
[2024-10-10] MEDS: COREG PO ×2 (09:32→20:29)
[2024-10-10] MEDS: TYLENOL 1000 MG PO ×3 (09:32→23:03)
[2024-10-10] MEDS: MAG-TAB SR 84 MG PO (09:33)
[2024-10-10] MEDS: KCL 20 MEQ PO ×2 (09:33→20:28)
[2024-10-10] MEDS: CRESTOR 20 MG PO ×2 (09:33→20:28)
[2024-10-10] MEDS: TESSALON PERLES 100 MG PO ×3 (09:33→20:28)
[2024-10-10] MEDS: DEMADEX 40 MG PO ×2 (09:33→16:05)
--- NOTE | 2024-10-10 09:37 | W.PN.CD ---
Today's Communication / Plan
-
Suspect his chest pain is not anginal but we can try increasing isosorbide to see if this helps.
Treatment of pneumonia per primary team.
Cardiology will sign off at this time. Please call with additional questions or concerns. He would like to follow-up at [facility] with primary chief lifestyle officer, Dr. Chey Menjivar.
Impression / Plan
-
PNA:
-severe in that he is requiring hospitalization with O2 and IV abx
- management per primary
-Patient still with pain with cough and inspiration. Also with wheezes on exam.
-Continue antibiotics per primary team
Chest pain:
-Challenging to assess. He has daily sharp chest pains at home some of which he takes nitro for and it helps. Not clear if all of these represent angina.
-Now patient with increased chest pains that are sharp and worse with cough.
-Likely either having musculoskeletal or pleuritic pain related to coughing and pneumonia. Troponins remain negative.
-Continue treatment of pneumonia
-Increase isosorbide mononitrate to 120 mg daily in case there is a component of angina.
Complex CAD with hx CABG and stenting:
-cardiac cath with Dr. Armijo 08/03/24 with stable coronary disease with a known occluded LAD, eccentric LM disease into LCX artery, no other arteries engaged during study- no hemodynamically significant CAD across the LM stenosis (iFR of LM into
circ 0.94)
-continue ASA, statin. Continue BB and Imdur as BP will tolerate. Of note, patient reports that he was on Ranexa in the past and his [place] chief lifestyle officer stopped it due to an EKG change with it? Details unknown. I suspect related to chronically
prolonged QTc.
HFpEF (ICM with improved EF): chronic
-does not appear overloaded to assessment. CXR without edema or effusions
-continue home torsemide 40mg BID
Hx SMA stent:
-on ASA, statin
Prolonged QTC- monitor, but chronic and stable
Mild/moderate AR: stable
Subjective: Patient continues to have chest pain at rest. CXR unchanged yesterday. BNP 0 from 1819 on admission
Physical Exam
Vital Signs/Labs
Vital Signs
Temp Pulse Resp BP Pulse Ox
98.2 F 78 17 104/63 96
10/10/24 07:35 10/10/24 07:35 10/10/24 07:35 10/10/24 07:35 10/10/24 07:35
10/10/24 06:53
10/10/24 06:53
Magnesium 1.7 mg/dl (1.6-2.3) 10/10/24 06:53
Free T4 2.01 ng/dl (0.78-2.19) 10/08/24 06:43
10/04/24 10/06/24 10/08/24
11:58 06:07 17:16
Gdp-R-Gkokwzdqsdg Pept 1819 2009 2139
LAB Results
10/08/24
17:16
Troponin I < 0.012
Physical Exam
Cardiovascular: Rhythm & rate is regular, Pedal edema is absent, S1S2 is normal and Murmur/rub/gallop absent
Respiratory: Crackles Present and Rhonchi Present
Data Reviewed
-
Date of Service: October 10, 2024
Medical Decision Making: Reviewed Test Results, Independent Historian Assessment, Test Interpretation and Review of Case with other Provider
EKG: Tracing Personally Visualized and interpreted
Echo: Report Reviewed by me
Labs: Labs Reviewed by me
[2024-10-10] MEDS: IMDUR (EXTENDED RELEASE) 90 MG PO (09:39)
--- NOTE | 2024-10-10 12:41 | W.PN.HOSP.TC ---
Today's Communication/Plan
-
Acapella
Mucinex
[place] nasal spray
Prednisone
Ibuprofen as needed
Assessment / Plan
Assessment / Plan
Gen-AAOx3, NAD
HEENT-NC, AT, anicteric, clear oral mm
Neck-supple
CV-reg, no M, +S1/S2
Lungs-bilateral rhonchi, mild end expiratory wheezing
Abd-soft, NT, ND
Ext-no edema
Musculoskeletal-no cyanosis, clubbing
Skin-warm and dry
Neuro-grossly non-focal
Psych-calm, cooperative
Acute hypoxic respiratory insufficiency -due to multifocal pneumonia. Oxygenation improving, down to 1 L. Wean down as able.
Multifocal community-acquired pneumonia -day 7 of IV ceftriaxone, doxycycline.
Add Acapella, Mucinex, prednisone.
Chest pain -atypical. Cardiology feels that it is not angina. Nevertheless, isosorbide dose increased.
Troponins remain negative. Cardiology signed off.
Headache -likely exacerbated by pneumonia induced cough. Ibuprofen ordered.
Sinusitis:
On antibiotics
Supportive care. Wilmore nasal spray. Ibuprofen as needed headache.
ENT eval appreciated
DENICE -Resolved
Anxiety:
Xanax as needed
Hypotension:
Resolved
Continue to monitor
Off IV fluid
Holding parameters for antihypertensives
Cardiology consult as well
CAD:
History of CABG and multiple stents in the past
Continue home ischemic regimen, aspirin, blockers, long-acting nitrates, statins.
Continue cardiac monitoring
Chronic diastolic congestive heart failure:
Resume oral torsemide 40 mg twice a day since he is starting to have some peripheral edema.
Continue beta-blockers
Continue to monitor ins and outs and daily weight
Essential hypertension:
Continue home meds
Monitor blood pressure closely
Hyperlipidemia:
Continue statin
Hypokalemia:
Improving
Continue K and Mg supplement
Chronic anemia -macrocytic. Hemoglobin at baseline. Refer back to PCP for further workup.
DVT prophylaxis:
Lovenox SQ
CODE STATUS:
Full code
Dispo -possible SNF. Patient wants to speak with case management.
Anticipated Discharge: Within 24 hours
Subjective/Interval History
-
Date of Service: October 10, 2024
Patient seen and examined. Complaining of nasal congestion, headache, cough.
Objective Data
-
Labs:
Laboratory Results
10/10/24
06:53
WBC 6.2
Hgb 11.1 L
Hct 32.5 L
Plt Count 193
Sodium 138
Potassium 3.8
Chloride 98
Carbon Dioxide 34 H
BUN 19
Creatinine 0.9
Glucose 118 H
Calcium 7.6 L
Vital Signs:
Vital Signs
Temp Pulse Resp BP Pulse Ox
97.6 F 78 16 102/64 96
10/10/24 11:20 10/10/24 11:20 10/10/24 11:20 10/10/24 11:20 10/10/24 11:20
I&O
10/09/24 10/10/24 10/11/24
06:59 06:59 06:59
Intake Total 1200 / 1200 240 / 240
Output Total 1050 / 1050 1800 / 1800
Balance 150 / 150 -1560 / -1560
Review of Systems
-
History Source: Patient
All other systems: Reviewed and negative
[2024-10-10] MEDS: ROCEPHIN 1000 MG IV (13:00)
[2024-10-10] MEDS: STERILE WATER FOR INJECTION 10 ML IV (13:00)
[2024-10-10] MEDS: MUCINEX 600 MG PO ×2 (13:01→20:28)
[2024-10-10] MEDS: DELTASONE 40 MG PO (13:01)
[2024-10-10] MEDS: COMPAZINE 5 MG IV (16:48)
[2024-10-10] MEDS: XANAX 0.25 MG PO (16:49)
[2024-10-10] MEDS: LOVENOX 40 MG SC (17:50)
[2024-10-10] MEDS: MELATONIN 5 MG PO (20:28)
[2024-10-11] VITALS (7 sets, daily range): BP systolic 91–134; BP diastolic 51–82
[2024-10-11] MEDS: XANAX 0.25 MG PO ×3 (05:43→23:21)
--- NOTE | 2024-10-11 08:21 | W.PN.HOSP.TC ---
Today's Communication/Plan
-
Discharge planning
Assessment / Plan
Assessment / Plan
Gen-AAOx3, NAD
HEENT-NC, AT, anicteric, clear oral mm
Neck-supple
CV-reg, no M, +S1/S2
Lungs-bilateral rhonchi, mild end expiratory wheezing
Abd-soft, NT, ND
Ext-no edema
Musculoskeletal-no cyanosis, clubbing
Skin-warm and dry
Neuro-grossly non-focal
Psych-calm, cooperative
Acute hypoxic respiratory insufficiency -due to multifocal pneumonia. Oxygenation improving, down to 1 L. Wean down as able.
Multifocal community-acquired pneumonia -completed course of antibiotics.
Continue Acapella, Mucinex, prednisone. 5-day course of prednisone.
Chest pain -atypical. Cardiology feels that it is not angina. Nevertheless, isosorbide dose increased.
Troponins remain negative. Cardiology signed off.
Headache -likely exacerbated by pneumonia induced cough. Patient refusing NSAIDs, we are left with Tylenol.
Sinusitis:
On antibiotics
Supportive care. Brown nasal spray. Ibuprofen as needed headache.
ENT eval appreciated
DENICE -Resolved
Anxiety:
Xanax as needed
Hypotension:
Resolved
Continue to monitor
Off IV fluid
Holding parameters for antihypertensives
Cardiology consult as well
CAD:
History of CABG and multiple stents in the past
Continue home ischemic regimen, aspirin, blockers, long-acting nitrates, statins.
Continue cardiac monitoring
Chronic diastolic congestive heart failure:
Continue oral torsemide 40 mg twice a day since he is starting to have some peripheral edema.
Continue beta-blockers
Continue to monitor ins and outs and daily weight
Essential hypertension:
Continue home meds
Monitor blood pressure closely
Hyperlipidemia:
Continue statin
Hypokalemia:
Improving
Continue K and Mg supplement
Chronic anemia -macrocytic. Hemoglobin at baseline. Refer back to PCP for further workup.
DVT prophylaxis:
Lovenox SQ
CODE STATUS:
Full code
Dispo -medically stable for discharge. Discussed with the patient. Disposition is rehab versus home as per PT. Case management to comment.
Anticipated Discharge: Today
Subjective/Interval History
-
Date of Service: October 11, 2024
Patient seen and examined. Complaining of cough, headache.
Objective Data
-
Vital Signs:
Vital Signs
Temp Pulse Resp BP Pulse Ox
97.7 F 60 16 102/57 99
10/11/24 07:37 10/11/24 07:37 10/11/24 07:37 10/11/24 07:37 10/11/24 07:37
I&O
10/10/24 10/11/24 10/12/24
06:59 06:59 06:59
Intake Total 240 / 240 1200 / 1200
Output Total 1800 / 1800 1725 / 1725
Balance -1560 / -1560 -525 / -525
Review of Systems
-
History Source: Patient
All other systems: Reviewed and negative
[2024-10-11] MEDS: IMDUR (EXTENDED RELEASE) 120 MG PO (08:32)
[2024-10-11] MEDS: CRESTOR 20 MG PO ×2 (08:32→20:34)
[2024-10-11] MEDS: NEURONTIN 100 MG PO ×2 (08:32→20:32)
[2024-10-11] MEDS: PROTONIX 40 MG PO ×2 (08:32→20:32)
[2024-10-11] MEDS: KCL 20 MEQ PO ×2 (08:32→20:32)
[2024-10-11] MEDS: TYLENOL 1000 MG PO ×3 (08:33→23:21)
[2024-10-11] MEDS: MUCINEX 600 MG PO ×2 (08:33→20:32)
[2024-10-11] MEDS: ASPIR LOW (ENTERIC COATED) 81 MG PO (08:33)
[2024-10-11] MEDS: TESSALON PERLES 100 MG PO ×3 (08:33→20:33)
[2024-10-11] MEDS: DELTASONE 40 MG PO (08:33)
[2024-10-11] MEDS: MAG-TAB SR 84 MG PO (08:33)
[2024-10-11] MEDS: COREG PO (08:34)
[2024-10-11] MEDS: DEMADEX 40 MG PO ×2 (08:34→15:14)
[2024-10-11] MEDS: NITROSTAT (SUBLINGUAL) 0.4 MG SL (13:03)
--- NOTE | 2024-10-11 13:33 | CM ---
Addendum entered by Tiffany Resendez, [facility] 10/11/24 16:33:
Placed a call to [facility] [phone] and spoke with a event marketing representative named, Mau, who issued Reference #[id number]
Clinical needs to be faxed to,
Faxed all clinical
Addendum entered by Tiffany Resendez, [facility] 10/11/24 16:25:
Received confirmation from Margi at [facility] that she can accept patient, pending auth.
NPIs For [id number] Dr. Steve Light [id number]
Will start auth.
Original Note:
Spoke with attending who stated that patient is stable for discharge. Met with patient at bedside to discuss discharge. He was tearful and stated that he is not feeling any better. He stated that he has had a headache that has not resolved. Upon
review of PT, patient close to baseline. Patient stated that his works in the evenings and he has no one to assist him. Offered VN services but he stated that he does not feel that would be enough help. Patient stated that he would be agreeable
to all facilities local to [facility], having referrals sent to them to determine availability. Patient was advised that as auth has to be obtained prior to transfer, there has to be approval, otherwise he will need to return home with
VN. Offer was made to call patient's to include her in conversation, however he stated that she is at work right now. Patient made a comment about wanting to jump out the window. Relayed this to Attending. Will make referrals.
Plan: Case management will continue to follow and assist with discharge planning. SNF if auth can be obtained vrs. Home. Referrals sent to: [facility], [facility], [facility], [facility] and [facility]. Will await
determinations.
[2024-10-11 14:00] LABS: Troponin I 0.013 ng/ml
--- NOTE | 2024-10-11 14:49 | CS.PSYCHR ---
Consult Summary - Psychiatry
-
Pt is a 68 yo male with CAD, heart failure followed by Miter Sawyer at [facility], who presented to with congestion, productive cough, admitted 10/04/24 and diagnosed with community-acquired pneumonia. Pt now stabilized and preparing for discharge.
Psychiatry asked to evaluate due to a passing statement about jumping out a window. Reviewed with nursing staff, who reports pt has been taking multiple doses of Nitroglycerin, c/o acute chest pain with no objective signs, giving conflicting history.
Upon interview, pt receiving prn Xanax 0.25 mg. He has received 2 doses today, one dose/day the past 2 days. Pt's presentation is somewhat dramatic, states he was told his heart condition is 'terminal', also has liver failure due to 'all the years
of drinking', states he needs a simultaneous heart and liver transplant. Pt c/o he has been in hospitalized multiple times over the past year with stomach, heart, liver problems. Pt states [facility] told him he has a '10% chance of survival with
surgery.' Pt denies active suicidal ideation/plan/intent, reports he was venting frustration, states he has been 'stepped on' multiple times and keeps getting up, has general complaints about his care, the food/diet here, etc.
PMH: Hypertension, Hyperlipidemia, CAD with hx of 'double by-pass at age 37', hx of Coronary stent, Laminectomy, Rt knee replacement, Abd CT 08/2024 showed nodular liver c/2 cirrhosis
Psych Hx: denies psychiatric treatment.
Substance Use: former tobacco smoker and drinker
SH: lives with ex-girlfriend, states he has supports from friend, nephew, [id number]
MSE: alert, oriented, calm, cooperative, sitting up in bed, answering questions. Pt hard of hearing. Speech coherent, circumstantial. Thought- preoccupied with health concerns, c/o not being listened to. No delusions. Denies SI, states he is
not giving up, expressed gratitude for opportunity to vent. Insight limited to fair
Imp: Adjustment d/o with depression, anxiety. Personality factors affecting pt's reaction to stress of physical illness. Denies active SI
Hx of alcohol use
Rec: Support approach; no psychiatric intervention needed. Would benefit from Outpatient therapy. Would limit prn Xanax given reported ambulatory dysfunction
Pt appears psychiatrically stable for discharge. Psychiatry will sign off
[2024-10-11] MEDS: FLEXERIL 5 MG PO (16:37)
[2024-10-11] MEDS: LOVENOX 40 MG SC (16:38)
[2024-10-11] MEDS: COREG 6.25 MG PO (20:33)
[2024-10-11] MEDS: MELATONIN 5 MG PO (20:33)
[2024-10-12] VITALS (7 sets, daily range): BP systolic 86–106; BP diastolic 51–68; PULSE 63–72; O2SAT 99
--- NOTE | 2024-10-12 02:08 | DOWNTIME ---
There was a [employer] Client Drilling Superintendent Downtime on 10/12/2024 from 0100 to 10/12/2023 at 0205 . Downtime documentation of patient's care, including medication administrations, has been reconciled in the electronic record per guidelines. Refer to the
patient's paper chart under the miscellaneous tab to see printed paper medication records and downtime forms.
[2024-10-12] MEDS: IMDUR (EXTENDED RELEASE) 120 MG PO (07:32)
[2024-10-12] MEDS: TYLENOL 1000 MG PO ×3 (07:32→23:12)
[2024-10-12] MEDS: DELTASONE 40 MG PO (07:32)
[2024-10-12] MEDS: NEURONTIN 100 MG PO ×2 (07:33→20:02)
[2024-10-12] MEDS: MAG-TAB SR 84 MG PO (07:33)
[2024-10-12] MEDS: DEMADEX 40 MG PO ×2 (07:33→16:45)
[2024-10-12] MEDS: PROTONIX 40 MG PO ×2 (07:33→20:02)
[2024-10-12] MEDS: CRESTOR 20 MG PO ×2 (07:33→20:02)
[2024-10-12] MEDS: TESSALON PERLES 100 MG PO ×3 (07:33→21:04)
[2024-10-12] MEDS: KCL 20 MEQ PO ×2 (07:33→20:02)
[2024-10-12] MEDS: ASPIR LOW (ENTERIC COATED) 81 MG PO (07:33)
[2024-10-12] MEDS: COREG PO ×2 (07:34→20:01)
[2024-10-12] MEDS: MUCINEX 600 MG PO ×2 (07:35→20:02)
--- NOTE | 2024-10-12 09:31 | W.PN.HOSP.TC ---
Today's Communication/Plan
-
Encouraged use of Acapella, incentive spirometer
Discharge planning
Assessment / Plan
Assessment / Plan
Gen-AAOx3, NAD
HEENT-NC, AT, anicteric, clear oral mm
Neck-supple
CV-reg, no M, +S1/S2
Lungs-bilateral rhonchi, mild end expiratory wheezing
Abd-soft, NT, ND
Ext-no edema
Musculoskeletal-no cyanosis, clubbing
Skin-warm and dry
Neuro-grossly non-focal
Psych-calm, cooperative
Acute hypoxic respiratory insufficiency -due to multifocal pneumonia. Oxygenation improving, down to 1 L. Wean down as able.
Multifocal community-acquired pneumonia -completed course of antibiotics.
Continue Acapella, Mucinex, prednisone. 5-day course of prednisone. Incentive spirometer.
Chest pain -atypical. Cardiology feels that it is not angina. Nevertheless, isosorbide dose increased.
Troponins remain negative. Cardiology signed off.
Headache -likely exacerbated by pneumonia induced cough. Patient refusing NSAIDs, we are left with Tylenol.
Sinusitis:
Completed antibiotics.
Supportive care. [place] nasal spray. Ibuprofen as needed headache.
ENT eval appreciated
DENICE -Resolved
Anxiety:
Xanax as needed
Adjustment disorder with depression, anxiety -appreciate psychiatry input. Recommend outpatient therapy.
Hypotension:
Resolved
Continue to monitor
Off IV fluid
Holding parameters for antihypertensives
Cardiology consult as well
CAD:
History of CABG and multiple stents in the past
Continue home ischemic regimen, aspirin, blockers, long-acting nitrates, statins.
Continue cardiac monitoring
Chronic diastolic congestive heart failure:
Continue oral torsemide 40 mg twice a day since he is starting to have some peripheral edema.
Continue beta-blockers
Continue to monitor ins and outs and daily weight
Essential hypertension:
Continue home meds
Monitor blood pressure closely
Hyperlipidemia:
Continue statin
Hypokalemia:
Improving
Continue K and Mg supplement
Chronic anemia -macrocytic. Hemoglobin at baseline. Refer back to PCP for further workup.
DVT prophylaxis:
Lovenox SQ
CODE STATUS:
Full code
Dispo -medically stable for discharge. Discussed with the patient. Disposition is rehab versus home as per PT. Patient prefers to go to SNF.
Anticipated Discharge: Today
Subjective/Interval History
-
Date of Service: October 12, 2024
Patient seen and examined. No complaints.
Objective Data
-
Vital Signs:
Vital Signs
Temp Pulse Resp BP Pulse Ox
97.8 F 65 16 103/61 95
10/12/24 07:32 10/12/24 07:34 10/12/24 07:32 10/12/24 07:34 10/12/24 07:32
I&O
10/11/24 10/12/24 10/13/24
06:59 06:59 06:59
Intake Total 1200 / 1200 1200 / 1200
Output Total 1725 / 1725 1525 / 1525
Balance -525 / -525 -325 / -325
Review of Systems
-
History Source: Patient
All other systems: Reviewed and negative
--- NOTE | 2024-10-12 10:40 | CM ---
Addendum entered by Michelle Foreman 10/12/24 12:58:
Call placed to [facility] and [facility] and spoke with Loreto Deras who advised that the final authorization approval is still pending and could take up to 72 hours. CM will call back again this afternoon to check status of authorization and coordinate
transfer once finalized. Pt is appropriate for w/c van transport at discharge.
Original Note:
Authorization obtained from [facility] and [facility]; 10/12-10/14/2024. Hue Barone is reviewer (phone [phone]); auth # has not yet populated, but is approved. Margi Bird notified of same.
CM to follow to coordinate w/c van transport to [facility] in [place] pending authorization number.
[2024-10-12] MEDS: LOVENOX 40 MG SC (16:45)
[2024-10-12] MEDS: XANAX 0.25 MG PO (18:11)
[2024-10-12] MEDS: MELATONIN 5 MG PO (21:04)
[2024-10-13 03:00] VITALS: BP 110/64
[2024-10-13 06:00] VITALS: BMI 27.1
[2024-10-13 08:00] VITALS: BP 115/64
[2024-10-13] MEDS: COREG PO (08:21)
[2024-10-13] MEDS: ASPIR LOW (ENTERIC COATED) 81 MG PO (08:22)
[2024-10-13] MEDS: CRESTOR 20 MG PO (08:22)
[2024-10-13] MEDS: IMDUR (EXTENDED RELEASE) 120 MG PO (08:22)
[2024-10-13] MEDS: DELTASONE 40 MG PO (08:23)
[2024-10-13] MEDS: PROTONIX 40 MG PO (08:23)
[2024-10-13] MEDS: DEMADEX 40 MG PO (08:23)
[2024-10-13] MEDS: NEURONTIN 100 MG PO (08:23)
[2024-10-13] MEDS: KCL 20 MEQ PO (08:23)
[2024-10-13] MEDS: TESSALON PERLES 100 MG PO (08:23)
[2024-10-13] MEDS: MUCINEX 600 MG PO (08:24)
[2024-10-13] MEDS: MAG-TAB SR 84 MG PO (08:24)
[2024-10-13] MEDS: TYLENOL PO (08:25)
--- NOTE | 2024-10-13 09:13 | W.PN.HOSP.TC ---
Today's Communication/Plan
-
Stop Tylenol [id number]
neurology follow-up
Assessment / Plan
Assessment / Plan
Gen-AAOx3, NAD
HEENT-NC, AT, anicteric, clear oral mm
Neck-supple
CV-reg, no M, +S1/S2
Lungs-bilateral rhonchi, mild end expiratory wheezing
Abd-soft, NT, ND
Ext-no edema
Musculoskeletal-no cyanosis, clubbing
Skin-warm and dry
Neuro-grossly non-focal
Psych-calm, cooperative
Acute hypoxic respiratory insufficiency -due to multifocal pneumonia. Oxygenation improving, down to 1 L. Wean down as able.
Multifocal community-acquired pneumonia -completed course of antibiotics.
Continue Acapella, Mucinex, prednisone. 5-day course of prednisone. Incentive spirometer. I have been asking nursing multiple times to ensure Acapella available at the bedside.
Chest pain -atypical. Cardiology feels that it is not angina. Nevertheless, isosorbide dose increased.
Troponins remain negative. Cardiology signed off.
Headache -likely exacerbated by pneumonia induced cough. Patient refusing NSAIDs, we are left with Tylenol. Suspect medication overuse headache because he has been using Tylenol on a daily basis since the onset of the headache 22 days ago. Stop
Tylenol [id number] and change to as needed only. I asked neurology to see in follow-up.
Sinusitis:
Completed antibiotics.
Supportive care. [place] nasal spray. Ibuprofen as needed headache.
ENT eval appreciated
DENICE -Resolved
Anxiety:
Xanax as needed
Adjustment disorder with depression, anxiety -appreciate psychiatry input. Recommend outpatient therapy.
Hypotension:
Resolved
Continue to monitor
Off IV fluid
Holding parameters for antihypertensives
Cardiology consult as well
CAD:
History of CABG and multiple stents in the past
Continue home ischemic regimen, aspirin, blockers, long-acting nitrates, statins.
Continue cardiac monitoring
Chronic diastolic congestive heart failure:
Continue oral torsemide 40 mg twice a day since he is starting to have some peripheral edema.
Continue beta-blockers
Continue to monitor ins and outs and daily weight
Essential hypertension:
Continue home meds
Monitor blood pressure closely
Hyperlipidemia:
Continue statin
Hypokalemia:
Improving
Continue K and Mg supplement
Chronic anemia -macrocytic. Hemoglobin at baseline. Refer back to PCP for further workup.
DVT prophylaxis:
Lovenox SQ
CODE STATUS:
Full code
Dispo -medically stable for discharge. Discussed with the patient. Disposition is rehab versus home as per PT. Patient prefers to go to SNF.
Anticipated Discharge: Within 24 hours
Subjective/Interval History
-
Date of Service: October 13, 2024
Patient seen and examined. Complaining of headache, cough.
Objective Data
-
Vital Signs:
Vital Signs
Temp Pulse Resp BP Pulse Ox
97.4 F 60 16 115/64 99
10/13/24 08:00 10/13/24 08:21 10/13/24 08:00 10/13/24 08:00 10/13/24 08:00
I&O
10/12/24 10/13/24 10/14/24
06:59 06:59 06:59
Intake Total 1200 / 1200 2100 / 2100
Output Total 1525 / 1525 1250 / 1250
Balance -325 / -325 850 / 850
Review of Systems
-
History Source: Patient
All other systems: Reviewed and negative
--- NOTE | 2024-10-13 10:42 | W.PN.NEURO.1 ---
Today's Communication / Plan
-
provide Prochlorperazine for headache control
unable to provide Rizatriptan due to cardiac issues
start Duloxetine 30 mg as preventative medication (also for chronic back pain)
Neuro Assessment/Plan
Assessment
I. Secondary headache.
II. Cervical spondylitic myelopathy
III. Ambulatory dysfunction
Plan
provide Prochlorperazine for headache control
unable to provide Rizatriptan due to cardiac issues
start Duloxetine 30 mg as preventative medication (also for chronic back pain)
physical therapy for gait dysfunction
Will follow
Subjective/Objective
Subjective Data
Date of Service: October 13, 2024
CTSP: headaches, constant x weeks. Mid forehead, radiates into temples. Not improved with prior meds. Intensity: '11 out of 10.' No known modifying factors.
Objective Data
Vital Signs
Temp Pulse Resp BP Pulse Ox
36.3 C 60 16 115/64 99
10/13/24 08:00 10/13/24 08:21 10/13/24 08:00 10/13/24 08:00 10/13/24 08:00
Lab Results
10/10/24 06:53
10/10/24 06:53
Sodium 138 mmol/L (135-145) 10/10/24 06:53
Potassium 3.8 mmol/L (3.5-5.1) 10/10/24 06:53
BUN 19 mg/dl (9-20) 10/10/24 06:53
Glucose 118 mg/dl (70-99) H 10/10/24 06:53
Calcium 7.6 mg/dl (8.4-10.2) L 10/10/24 06:53
Ulx-K-Uckilymrzij Pept 2140 pg/ml 10/08/24 17:16
Ur Buprenorphine Negative (Negative) 10/08/24 00:21
Patient Allergies
No Known Allergies Allergy (Verified 09/01/24 08:36)
Review of Systems
-
History Source: Patient
All other systems: Reviewed and negative
EENT: Negative Swallowing Difficulty
Respiratory: Trouble Breathing
Cardiac: Negative Chest Pain
--- NOTE | 2024-10-13 11:59 | CM ---
Placed a call to [facility] and spoke with employment representative, Mau, who stated that patient has been approved 08/12-08/14 NRD 08/14
Auth # [id number] Reference # for call [id number], call for review should be made to, Laury Barone [phone]
Placed a call to Margi at [facility] to provide above information.
She stated that the # for report [phone] and fax# [phone]
Messaged attending to make aware. He stated that patient is medically stable for discharge, will put in order.
Will meet with patient to review transfer and IMM.
Plan: Case management will continue to follow and assist with discharge planning. [facility], today.
--- NOTE | 2024-10-13 11:59 | W.DS.TRANS ---
DC Summary - Chief Of Anesthesiology
-
Discharge Instructions:
Discharge Diagnosis/Procedures Pneumonia, atypical chest pain, sinusitis, DENICE
Diet 2 Gram Sodium
Activity As tolerated,With assistance
Driving Restrictions As prior to admission
Bathing Restrictions None
Instructions:
Stand-Alone Forms:
Changes to Home Medications: No
Discharge Medications:
DC Medications w/original date entered in [employer]
aspirin 81 mg tablet,delayed release 81 mg PO DAILY Blood Clot Prevention/Tx 11/22/20
rosuvastatin 20 mg tablet 20 mg PO BID High Cholesterol 11/04/23
pantoprazole 40 mg tablet,delayed release 40 mg PO BID Gastrointestinal Issue 12/01/23
torsemide 20 mg tablet 40 mg PO BID Fluid Retention/Swelling 04/26/24
carvedilol 3.125 mg tablet (Coreg) 6.25 mg PO DAILY Blood Pressure 09/01/24
gabapentin 100 mg capsule 100 mg PO BID pain 09/01/24
potassium chloride 20 mEq tablet,extended release 20 meq PO BID Electrolyte Repletion 09/01/24
magnesium oxide 400 mg PO DAILY Supplement 10/04/24
alprazolam 0.25 mg tablet 0.25 mg PO Q8HPRN PRN anxiety #0 tabs 10/13/24
benzonatate 100 mg capsule 100 mg PO TID #0 caps 10/13/24
duloxetine 30 mg capsule,delayed release 30 mg PO DAILY #0 caps 10/13/24
guaifenesin 600 mg tablet, extended release 12 hr 600 mg PO Q12 #0 tabs 10/13/24
ipratropium 0.5 mg-albuterol 3 mg (2.5 mg base)/3 mL nebulization soln 3 ml inhalation R Q4HPRN PRN sob/wheezing #0 mL 10/13/24
isosorbide mononitrate 60 mg tablet,extended release 24 hr 120 mg (2 x 60 mg) PO DAILY #0 tabs 10/13/24
melatonin 5 mg tablet 5 mg PO HS #0 tabs 10/13/24
nitroglycerin 0.4 mg sublingual tablet 0.4 mg sublingual Q5MPRN PRN chest pain #0 tabs 10/13/24
prednisone 10 mg tablet 30 mg (3 x 10 mg) PO DAILY #10 tabs 10/13/24
sodium chloride 0.65 % nasal spray aerosol (Saline Nasal) 2 spray intranasal Q2HPRN PRN sinusitis #44 mL 10/13/24
Home Medication Changes
Pending Results: No
[2024-10-13] MEDS: COMPAZINE 5 MG IV (12:07)
[2024-10-13] MEDS: CYMBALTA DELAYED RELEASE 30 MG PO (12:07)
[2024-10-13 15:22] VITALS: BP 121/61
== END 2024-10-13 15:27 | DRG 194 ==
LOC: 3 WEST ACU 14:00
PROVIDERS: Hospitalist; Internal Medicine Cardiovascular Disease; Nurse Practitioner Gerontology; Registered Nurse; ADMITTING PHYSICIAN Hospitalist; ATTENDING PHYSICIAN Hospitalist; CONSULT PHYSICIAN Internal Medicine; CONSULT PHYSICIAN Otolaryngology Facial Plastic Surgery; CONSULT PHYSICIAN Psychiatry & Neurology Neurology; EMERGENCY PHYSICIAN Emergency Medicine; FAMILY PHYSICIAN Internal Medicine; OTHER PHYSICIAN Psychiatry & Neurology Psychiatry
DX: J18.9 Pneumonia, unspecified organism (principal); E87.1 Hypo-osmolality and hyponatremia; M47.12 Other spondylosis with myelopathy, cervical region; I50.32 Chronic diastolic (congestive) heart failure; N17.9 Acute kidney failure, unspecified; I11.0 Hypertensive heart disease with heart failure; I25.2 Old myocardial infarction; I25.5 Ischemic cardiomyopathy; R73.03 Prediabetes; R51.9 Headache, unspecified; I25.118 Atherosclerotic heart disease of native coronary artery with other forms of angina pectoris; E78.00 Pure hypercholesterolemia, unspecified; D64.9 Anemia, unspecified; E87.6 Hypokalemia; J01.00 Acute maxillary sinusitis, unspecified; R06.89 Other abnormalities of breathing; R09.02 Hypoxemia; I95.9 Hypotension, unspecified; F43.23 Adjustment disorder with mixed anxiety and depressed mood; G62.9 Polyneuropathy, unspecified; H93.12 Tinnitus, left ear; K74.60 Unspecified cirrhosis of liver; K21.9 Gastro-esophageal reflux disease without esophagitis; Z95.1 Presence of aortocoronary bypass graft; Z87.891 Personal history of nicotine dependence; Z79.82 Long term (current) use of aspirin; Z79.899 Other long term (current) drug therapy; Z95.5 Presence of coronary angioplasty implant and graft; Z96.651 Presence of right artificial knee joint
CPT/HCPCS: 70450; 70546; 71046; 71275; 80048; 80053; 80306; 80307; 81003; 83735; 83880; 84439; 84443; 84484; 85025; 87070; 87205; 87449; 87502; 87811; 87899; 93005; 93306; 94640; 97116; 97162; 97166; 97530; 99285; A9585; Q9967

== ENCOUNTER → 2024-10-17 12:31 | Outpatient (REF) | payer OTHER, MEDICARE, SELFPAY ==
[2024-10-17 13:28] LABS: Hematocrit 32.3 % (39.0-52.0); Hemoglobin 10.6 g/dL (13.0-18.0); Mean Corp Hgb Conc. 32.8 g/dL (33.0-37.0); Mean Corpuscular Hgb 33.8 pg (27.0-31.0); Mean Corpuscular Volume 102.9 fL (80.0-94.0); Mean Platelet Volume 10.8 fL (7.4-10.4); Platelet Count 149 10^3/uL (130-400); Red Blood Cell Count 3.14 10^6/uL (4.70-6.10); Red Cell Dist. Width 14.1 % (11.5-14.5); White Blood Cell Count 9.9 10^3/uL (4.8-10.8)
[2024-10-17 13:59] LABS: ALT (SGPT) 133 U/L (0-50); AST (SGOT) 120 U/L (17-59); Albumin 2.7 g/dl (3.5-5.0); Alkaline Phosphatase 200 U/L (38-126); Blood Urea Nitrogen 16 mg/dl (9-20); Calcium 8.2 mg/dl (8.4-10.2); Carbon Dioxide 35 mmol/L (22-30); Chloride 96 mmol/L (98-107); Glucose 105 mg/dl (70-99); Sodium 137 mmol/L (135-145); Total Bilirubin 0.8 mg/dl (0.2-1.3); Total Protein 5.6 g/dl (6.3-8.2); eGFR > 60.00
== END ==
LOC: OLABWHC 12:31
PROVIDERS: ATTENDING PHYSICIAN Family Medicine
DX: J18.9 Pneumonia, unspecified organism (principal); N17.9 Acute kidney failure, unspecified; I10 Essential (primary) hypertension
CPT/HCPCS: 36415; 80053; 83735; 85027

== ENCOUNTER 2024-11-16 22:10 | Inpatient (IN) | payer MEDICARE, SELFPAY ==
[2024-11-16] VITALS (21 sets, daily range): BP systolic 84–119; BP diastolic 46–73; PULSE 57–60; BMI 31.9
[2024-11-16 13:24] LABS: % Basophils 1.1 % (0-2); % Eosinophils 2.8 % (0-6); % Immature Granulocytes 0.5 % (0-0.5); % Neutrophils 59.6 % (42.2-75.2); Absolute Basophils 0.1 10^3/uL (0-0.2); Absolute Eosinophils 0.2 10^3/uL (0-0.7); Absolute Lymphocytes 1.7 10^3/uL (1.2-3.4); Absolute Monocytes 0.7 10^3/uL (0.1-0.6); Absolute Neutrophils 3.9 10^3/uL (1.4-6.5); Hematocrit 32.8 % (39.0-52.0); Hemoglobin 11.3 g/dL (13.0-18.0); Mean Corp Hgb Conc. 34.5 g/dL (33.0-37.0); Mean Corpuscular Hgb 33.5 pg (27.0-31.0); Mean Corpuscular Volume 97.3 fL (80.0-94.0); Mean Platelet Volume 9.8 fL (7.4-10.4); Nucleated Red Blood Cells % 0 % (-); Platelet Count 149 10^3/uL (130-400); Red Blood Cell Count 3.37 10^6/uL (4.70-6.10); Red Cell Dist. Width 13.6 % (11.5-14.5); White Blood Cell Count 6.5 10^3/uL (4.8-10.8)
[2024-11-16 13:30] LABS: ALT (SGPT) 18 U/L (0-50); AST (SGOT) 36 U/L (17-59); Albumin 2.7 g/dl (3.5-5.0); Alkaline Phosphatase 153 U/L (38-126); Blood Urea Nitrogen 9 mg/dl (9-20); Calcium 8.5 mg/dl (8.4-10.2); Carbon Dioxide 38 mmol/L (22-30); Chloride 93 mmol/L (98-107); Estimated Creatinine Clearance 91 ml/min; Glucose 118 mg/dl (70-99); Potassium 2.9 mmol/L (3.5-5.1); Sodium 132 mmol/L (135-145); Total Bilirubin 1.8 mg/dl (0.2-1.3); Total Protein 5.7 g/dl (6.3-8.2); eGFR > 60.00
--- NOTE | 2024-11-16 13:41 | ED.GENMED ---
History of Present Illness
General
Chief Complaint: Cardiac Symptoms
Time Seen by Provider: 11/16/24 13:14
History of Present Illness
History of Present Illness:
61-year-old male with history of CAD, hypertension, hyperlipidemia, and cardiomyopathy presents the emergency department for evaluation of dizziness, lightheadedness, shortness of breath, chest discomfort. States he has been feeling lightheaded for
several weeks. Has been noted to have progressively lower blood pressures at home by visiting nurses. Started on midodrine 5 days ago 5 mg 3 times daily but this was increased to 10 mg 3 times daily as of yesterday. He reports chest discomfort
started last night. No fevers or chills.
Patient was admitted to the hospital here last month for hypoxia due to multifocal community-acquired pneumonia and was treated successfully with antibiotics.
Past History
Past History
ED Past Medical History: CAD, COPD (Ex-smoker), HTN and Hypercholesterolemia
ED Past Surgical History: Cardiac (According to PCP notes, patient had LHC 10/2022, attempted wiring of the LAD (75% mid LAD and 90% apical LAD stenosis), aborted secondary to severe tortuosity and bleeding of the SIFUENTES graft, on medical therapy.,
Echo o 11/2023 with LV EF of 65 to 70% mild to moderate aortic regurg. ), Orthopedic and Other (Hernia repair. Refractory angina on Renexa)
Social History
Tobacco: Smoker
Alcohol: Occasional
Drug: None
Personal:
Living: with family
Employment: Retired
Review of Systems
Review of Systems
Allergies reviewed?: Yes
All Other Systems: ROS reviewed and negative except as documented in HPI and ROS
Phy Exam
Physical Exam
Physical Exam:
GEN: Well appearing, NAD, WDWN
HEENT: Oral mucosa moist, no scleral icterus
Cardiac: Regular rate and rhythm, no murmurs
Lung: No respiratory distress, no tachypnea, lungs clear to auscultation bilaterally
MSK: No gross deformity or injuries, 2+ pitting edema bilateral lower extremities
Skin: Good color, no pallor or jaundice, no rashes
Neuro: AO x3, moves all extremities freely
Psych: Calm, cooperative
Course
Orders/Labs/Results
Orders:
Orders
11/16/24 13:09
ECG [Electrocardiogram (*1)] Urgent
Reason for Study: Syncope
EKG- Treatment ONCE
11/16/24 13:12
Complete Blood Count/With Diff Urgent
Comprehensive Metabolic Panel Urgent
Pro-BNP [NT-proBNP] Urgent
Troponin I Urgent
11/16/24 13:26
CR Chest - 2 Views Urgent
Comment:
Reason For Exam: chest pain/SOB
11/16/24 14:07
Potassium Chloride [KCl] 40 meq PO NOW STA
11/16/24 14:22
Potassium Chloride [KCl] 20 meq 0.9% Sodium Chloride 150 ml [Nss] 150 ml IV NOW
11/16/24 16:47
EKG [Electrocardiogram (*1)] Urgent
Reason for Study: Other
Other Reason for Exam: repeat trop
EKG- Treatment ONCE
EKG- Treatment ONCE
11/16/24 16:50
Troponin I Urgent
11/16/24 17:06
Midodrine [ProAmatine] 10 mg PO NOW STA
11/16/24 18:22
Urinalysis Reflex To Culture Urgent
Date Specimen was Collected: 11/16/24
Time Specimen was Collected: 18:21
Urine Microscopic Reflex Cult Urgent
Urine Culture Urgent
HANNY Source: U
Specimen Description:
Date Specimen was Collected: 11/16/24
Time Specimen was Collected: 18:21
Abnormal Lab Results
11/16/24 11/16/24
13:12 18:22
RBC 3.37 L 10^6/uL
(4.70-6.10)
Hgb 11.3 L g/dL
(13.0-18.0)
Hct 32.8 L %
(39.0-52.0)
MCV 97.3 H fL
(80.0-94.0)
MCH 33.5 H pg
(27.0-31.0)
Absolute Monos (auto) 0.7 H 10^3/uL
(0.1-0.6)
Monocytes % 10.0 H %
(1.7-9.3)
Sodium 132 L mmol/L
(135-145)
Potassium 2.9 L mmol/L
(3.5-5.1)
Chloride 93 L mmol/L
(98-107)
Carbon Dioxide 38 H mmol/L
(22-30)
Glucose 118 H mg/dl
(70-99)
Total Bilirubin 1.8 H mg/dl
(0.2-1.3)
Alkaline Phosphatase 153 H U/L
(38-126)
Total Protein 5.7 L g/dl
(6.3-8.2)
Albumin 2.7 L g/dl
(3.5-5.0)
Leukocyte Esterase Rfl 1+ A
(Negative)
Urine Bacteria (Reflex) Few A
(Negative)
Urine Albumin (Reflex) 1+ A
(Neg - Trace)
11/16/24 13:12
11/16/24 13:12
Vital Signs
Initial and Last Documented VS:
Initial Vital Signs
Pulse Resp BP Pulse Ox
57 9 113/72 98
11/16/24 13:04 11/16/24 13:04 11/16/24 13:04 11/16/24 13:04
Last Documented Vital Signs
Temp Pulse Resp BP Pulse Ox
97.7 F 50 21 89/65 97
11/16/24 18:21 11/16/24 18:00 11/16/24 18:00 11/16/24 18:00 11/16/24 17:45
MDM/Problems Addressed
MDM/Problems Addressed:
Patient remains orthostatic despite high doses of midodrine, he is symptomatic with near syncope upon standing. Also noted to be hypokalemic which is likely product of vomiting coupled with diuretic use. Potassium repleted in the ED both orally
and intravenously. Will admit to the hospitalist service for further workup
*Critical Care Note
Total Time (30-74mins, 75-104mins- exclusive of procedures): Not Applicable
ED Attending Note
-
Portions of this chart may have been created with voice recognition software.� Occasional wrong word or��sound alike� substitutions may have occurred due to the inherent limitations of voice recognition software.
Discharge Plan
Departure
Patient Disposition: Admit
Date of Disposition: 11/16/24
Time of Disposition: 18:38
Admit to: Med/Surg
Presentation/result/management discussed w/ accepting MD/DO: Hospitalist
Discharge Problem:
Orthostatic hypotension
Prescriptions:
No Action
aspirin 81 MG tablet,delayed release (DR/EC)
81 mg PO DAILY
rosuvastatin 20 MG tablet
20 mg PO BID
pantoprazole 40 mg tablet,delayed release (DR/EC)
40 mg PO BID
torsemide 20 mg tablet
40 mg PO BID
gabapentin 100 mg Capsule
100 mg PO TID
potassium chloride 20 mEq Tablet Extended Release
20 meq PO BID
magnesium oxide 400 mg magnesium Tablet
400 mg PO DAILY
duloxetine 30 mg Capsule,Delayed Release(Dr/Ec)
30 mg PO DAILY Qty: 0 0RF
ipratropium-albuterol 0.5 mg-3 mg(2.5 mg base)/3 mL Solution For Nebulization
3 ml inhalation R Q4HPRN PRN (Reason: sob/wheezing) Qty: 0 0RF
nitroglycerin 0.4 mg Tablet, Sublingual
0.4 mg sublingual Q5MPRN PRN (Reason: chest pain) Qty: 0 0RF
midodrine 5 mg Tablet
5 mg PO TID
Referrals:
Alida Hendricks MD [Family Provider] -
Interventions
Interventions:
*Risk Screen - Suicide Last Done: 11/16/24 13:10
*General Assessment Last Done: 11/16/24 13:10
*Neglect/Abuse Screening Last Done: 11/16/24 13:10
ED- Fall Risk Assessment Last Done: 11/16/24 14:27
*ED COVID-19 Vaccine History Last Done: 11/16/24 14:26
ED- Pulmonary Assessment Last Done: 11/16/24 14:27
ED- Cardiac Assessment Last Done: 11/16/24 14:27
Discharge Date and Time
Print Language: CZECH
[2024-11-16 13:42] LABS: NT-proBNP 1060 pg/ml; Troponin I < 0.012 ng/ml
[2024-11-16] MEDS: KCL 40 MEQ PO (14:23)
[2024-11-16] MEDS: KCL 160 MEQ IV (14:32)
[2024-11-16] MEDS: ProAmatine 10 MG PO (17:08)
[2024-11-16 17:21] LABS: Troponin I < 0.012 ng/ml
[2024-11-16 18:42] LABS: Urine Albumin 1+ (Neg - Trace); Urine Bilirubin Negative (Negative); Urine Character Clear (Clear); Urine Color Yellow; Urine Glucose Negative (Negative); Urine Ketone Negative (Negative); Urine Leukocyte 1+ (Negative); Urine Nitrite Negative (Negative); Urine Occult Blood Negative (Negative); Urine Urobilinogen 1+ (Neg - 1+)
[2024-11-16 18:48] LABS: Urine Bacteria Few (Negative); Urine Red Blood Cell 0-2 /HPF (0-2)
--- NOTE | 2024-11-16 20:19 | HPS.HSE ---
Family Physician
-
Family Physician: Alida Hendricks
Chief Complaint
-
hypotension
History of Present Illness
Patient is a 69-year-old male with past medical history significant for hypertension, hyperlipidemia, CAD, HFpEF and Hx TX who presented to [facility] ED for evaluation of hypotension. Patient states his visiting nurse recommended
evaluation related to continued declining blood pressure. Patient reports lightheadedness, and dizziness since previous discharge 10/15/2024. He has documented lowering blood pressure since then as well, he was started on midodrine 5mg TID 5 days
ago and it was increased to 10mg TID yesterday. He reports having recent chills, dizziness, cough, shortness of breath, chest pain, and burning with urination. He denies fever, constipation and diarrhea.
Medical History
Past Medical History
Past Medical History: Reports Other
Additional Past Medical History:
hypertension
hyperlipidemia
CAD
HFpEF
Hx TX
Past Surgical History: Reports Other
Additional Past Surgical History:
coronary artery bypass
coronary stent placement
cardiac cath
quad laminectomy
right knee replacement
excision of pilonidal cyst
SMA stent
Social History
Tobacco: Former Smoker (quit 4 years ago, approximately 26 pack year history)
Alcohol: Occasional
Drug: None
Living: With Roomate
Employment: Retired (works when feeling up to it )
Family History
Family History: Other (mother: CAD; siblings: CAD )
Allergies / Home Medications
Allergies reflects when Allergies were last updated in [employer].
Home Medications with original date entered in [employer]
Allergy/Medication List:
Allergies
Allergy/AdvReac Type Severity Reaction Status Date / Time
No Known Allergies Allergy Verified 11/16/24 13:10
Home Medications
aspirin 81 mg tablet,delayed release 81 mg PO DAILY Blood Clot Prevention/Tx 11/22/20
rosuvastatin 20 mg tablet 20 mg PO BID High Cholesterol 11/04/23
pantoprazole 40 mg tablet,delayed release 40 mg PO BID Gastrointestinal Issue 12/01/23
torsemide 20 mg tablet 40 mg PO BID Fluid Retention/Swelling 04/26/24
gabapentin 100 mg capsule 100 mg PO TID pain 09/01/24
potassium chloride 20 mEq tablet,extended release 20 meq PO BID Electrolyte Repletion 09/01/24
magnesium oxide 400 mg PO DAILY Supplement 10/04/24
duloxetine 30 mg capsule,delayed release 30 mg PO DAILY #0 caps 10/13/24
ipratropium 0.5 mg-albuterol 3 mg (2.5 mg base)/3 mL nebulization soln 3 ml inhalation R Q4HPRN PRN sob/wheezing #0 mL 10/13/24
nitroglycerin 0.4 mg sublingual tablet 0.4 mg sublingual Q5MPRN PRN chest pain #0 tabs 10/13/24
midodrine 5 mg tablet 5 mg PO TID 11/16/24
Review of Systems
-
Constitutional: Reports Weight Gain and Chills
EENT: Reports No Symptoms
Respiratory: Reports Cough and Trouble Breathing (shortness of breath )
Cardiac: Reports No Symptoms
Abdomen/GI: Reports Nausea and Vomiting
: Reports Dysuria
Musculoskeletal: Reports No Symptoms
Skin: Reports No Symptoms
Neurological: Reports Dizzy
Endocrine: Reports No Symptoms
Hematologic/Lymphatic: Reports No Symptoms
Psych: Reports No Symptoms
Physical Exam
Vital Signs
Vital Signs
Temp Pulse Resp BP Pulse Ox
97.7 F 50 21 89/65 97
11/16/24 18:21 11/16/24 18:00 11/16/24 18:00 11/16/24 18:00 11/16/24 17:45
Physical Exam
General: Well Developed, Well Nourished, No Apparent Distress and Conversant
HEENT: NormoCephalic, Moist mucous membranes, Atraumatic, [place] Conjunctivae, Nose Appears Normal and Ears Appear Normal
Respiratory: Clear, Non Labored Respirations and Decreased Breath Sounds
Cardiac: S1/S2 and Regular Rhythm; No Murmur, Rub or Gallop
Breast: Deferred by me
GI: Soft, Non Tender, Non Distended and Normal Bowel Sounds; No Organomegaly
Rectal: Deferred by Provider
Genito-urinary: Deferred by me
Musculoskeletal: No Clubbing, No Cyanosis, Edema, Left Lower Extremity and Edema, Right Lower Extremity
Skin: Warm and IV/Catheter Site; No Rash
Neuro: Awake, Alert, AO x 3 and Nonfocal/grossly intact
Psych: Calm
Laboratory Results
-
11/16/24 13:12
11/16/24 13:12
Laboratory Results
Total Bilirubin 1.8 mg/dl (0.2-1.3) H 11/16/24 13:12
AST 36 U/L (17-59) 11/16/24 13:12
ALT 18 U/L (0-50) 11/16/24 13:12
Alkaline Phosphatase 153 U/L (38-126) H 11/16/24 13:12
Troponin I < 0.012 ng/ml 11/16/24 16:50
Data Reviewed
-
Diagnostic Radiology: Report Reviewed by me (CXR: Low lung volumes. Significantly improved left perihilar pneumonia in comparison to recent prior study. No new focal parenchymal opacification.)
Medical Tests (Nuc Med, Echo, EKG etc): Report Reviewed by me (EKG: SINUS BRADYCARDIA WITH SINUS ARRHYTHMIA PROLONGED QT)
Lab Data: Labs Reviewed by me (Na+ 132, K+ 2.9, BNP 1060)
Impression/Plan
-
IMPRESSION/PLAN:
#orthostatic hypotension
2/2 over diuresis??
BNP 1060
EKG: SINUS BRADYCARDIA WITH SINUS ARRHYTHMIA
PROLONGED QT
Orthostatic VS:
Supine BP 97/63, HR 58
Sitting BP 95/46, HR 58
Standing BP 86/49, HR 57
- Admit to telemetry
- continue midodrine
- IVF bolus
- Consult cardiology
- orthostatic VS
#hypokalemia
K+ 2.9
EKG: SINUS BRADYCARDIA WITH SINUS ARRHYTHMIA
PROLONGED QT
- supplement as indicated
- monitor BMP
#hypertension
- hold torsemide
#hyperlipidemia
- continue rosuvastatin
#CAD
- continue aspirin, rosuvastatin
#HFpEF
BNP 1060
patient reports 3 pound weight gain overnight
EKG: SINUS BRADYCARDIA WITH SINUS ARRHYTHMIA
PROLONGED QT
- daily weights
- hold torsemide
- continue potassium chloride
#Hx TX
Code status: full code
DVT prophylaxis: Lovenox sq
--- NOTE | 2024-11-16 21:20 | W.PN.UPDATE ---
Update Note
Progress Note Update
This is an addendum to the H&P written by Romi Coulter on 11/16/2024.� Patient seen and examined independently with CREPE MACHINE OPERATOR.
69-year-old male past medical history of cardiomyopathy, CAD status post CABG, diastolic heart failure, multiple stents, chronic anemia,, hypertension, hyperlipidemia, anxiety/depression, COPD, presenting with dizziness, syncopal episodes,
lightheadedness and shortness of breath and chest discomfort.� Lightheaded for several weeks with lower blood pressures noted by visiting nurses.� Started on midodrine 5 days ago increased to 10 mg yesterday.� Chest discomfort started last night.�
Blood pressures 80s systolic.
Chest x-ray unremarkable.
Patient with orthostatic hypotension likely secondary to overdiuresis from torsemide.
Potassium 2.9.� Troponins negative.� EKG unremarkable except for QT prolongation with QTc of 513 secondary to hypokalemia.
Hold torsemide.� 500 cc IV fluid bolus.� Check orthostatics daily.� Continue midodrine 10 mg 3 times daily.� Trend troponins.� Potassium repletion.� Check magnesium level.� Cardiology consulted.
[2024-11-16] MEDS: NSS 500 IV (21:31)
[2024-11-16] MEDS: NEURONTIN 100 MG PO (22:53)
[2024-11-16] MEDS: ProAmatine 5 MG PO ×2 (22:54→23:04)
[2024-11-16] MEDS: DUONEB 3 ML INH (23:09)
[2024-11-17] VITALS (60 sets, daily range): BP systolic 63–128; BP diastolic 20–79; PULSE 63–64; BMI 28.1
[2024-11-17] MEDS: LEVOPHED 250 IV (02:15)
[2024-11-17 02:42] LABS: Hematocrit 29.7 % (39.0-52.0); Hemoglobin 10.1 g/dL (13.0-18.0); Mean Corpuscular Hgb 33.7 pg (27.0-31.0); Mean Platelet Volume 9.7 fL (7.4-10.4); Platelet Count 124 10^3/uL (130-400); Red Cell Dist. Width 13.7 % (11.5-14.5); White Blood Cell Count 4.8 10^3/uL (4.8-10.8)
[2024-11-17 03:04] LABS: Blood Urea Nitrogen 10 mg/dl (9-20); Calcium 8.2 mg/dl (8.4-10.2); Carbon Dioxide 34 mmol/L (22-30); Chloride 97 mmol/L (98-107); Estimated Creatinine Clearance 102 ml/min; Glucose 106 mg/dl (70-99); Magnesium 1.7 mg/dl (1.6-2.3); Sodium 134 mmol/L (135-145); eGFR > 60.00
[2024-11-17] MEDS: MAGNESIUM OXIDE 500 MG PO ×2 (05:45→08:46)
[2024-11-17] MEDS: KCL 40 MEQ PO (05:45)
--- NOTE | 2024-11-17 06:28 | PTCARENOTE ---
Pt's Map Dropped below 65. Care team was made aware. Pt was started on Levo with improvement of MAP. Please see VS.
[2024-11-17] MEDS: PROTONIX 40 MG PO ×2 (08:46→20:20)
[2024-11-17] MEDS: ASPIR LOW (ENTERIC COATED) 81 MG PO (08:46)
[2024-11-17] MEDS: NEURONTIN 100 MG PO ×3 (08:46→22:10)
[2024-11-17] MEDS: KCL 20 MEQ PO ×3 (08:46→20:20)
[2024-11-17] MEDS: ProAmatine 10 MG PO ×3 (08:46→16:08)
[2024-11-17] MEDS: CYMBALTA DELAYED RELEASE 30 MG PO (08:56)
[2024-11-17] MEDS: CRESTOR 20 MG PO ×2 (08:56→20:20)
--- NOTE | 2024-11-17 09:38 | CON.CAR ---
Addendum entered and electronically signed by Jorje Kennedy MD 11/17/24 11:36:
69 yo male with PMH of CAD/CABG, then stenting, and most recent cath with no targets for PCI, chronic angina, chronic HFPEF is admitted with dizziness/hypotension. Coreg and imdur were recently stopped by his senior gamemaster ([facility] Dr Menjivar), and as
well as midodrine started and being titrated. He presents to ED with continued dizziness, low BP, and hypokalemia. Exam with RRR, no murmurs, no edema. Cr 0.8. K 3.0.
Continue midodrine at 10mg bid. Hold torsemide, replete K, and give IV fluids.
Assess to resume torsemide at lower dose tomorrow. Home dose was 40mg bid.
Original Note:
Consultation
Consultation Request
Date/Time Consultation Requested: 11/16/242216
Date/Time Consultation Performed: 11/17/24 8306
Requesting Provider: Krys Coulter
Performing Provider: Keyla MAYA for Dr. Kennedy
Reason for Consultation: hypotension, overdiuresis
Medical History
-
Chief Complaint: hypotension, light-headed
History of Present Illness:
68 y/o male (Dr. Menjivar primary senior gamemaster) with premature CAD s/p CABG (in 1992 at [facility] at age 37; known occluded SVG-diagonal), subsequent coronary stenting (2006 and 2020), ICM EF 40-45%- now normalized, hypertension, dyslipidemia, prediabetes,
SMA stent 10/2023, and former cigarette use (quit 05/2021), recent anemia with BRB per rectum (resolved), prolonged QTC. He was here in July with CP, but ultimately sent to [facility] due to his complex coronary disease. He had a cardiac cath with
Zofia 08/03/24 with stable coronary disease with a known occluded LAD, eccentric LM disease into LCX artery, no other arteries engaged during study- no hemodynamically significant CAD across the LM stenosis (iFR of LM into circ 0.94). He was
here last month with PNA and had CP and we saw him and increased Imdur. However, since then he has been struggling with orthostasis, which is severe enough that he 'blacked out' 3 times in the past few weeks. It is always with ambulation and
preceded by light-headed/weak feeling. As OP, Coreg and Imdur were stopped and midodrine was added and increased. Of note, he had vomiting earlier this week. He received 500 ml IVF and was on Levophed overnight. That has been off for about an hour.
He is in no distress at the time of my assessment. His CP has been better than usual recently actually and he hasn't been taking nitro, but he does have SOB and is wheezing to assessment. Otherwise, he reports chills. A UA is pending. Finally,
hypokalemia is noted and being replaced.
Past Medical History
Past Medical History: CAD, CHF, HTN and Hypercholesterolemia
Social History
Tobacco: Former Smoker
Family History
Family History: Reviewed & Not Pertinent
Allergies / Home Medications
Allergy/AdvReac Type Severity Reaction Status Date / Time
No Known Allergies Allergy Verified 11/16/24 13:10
�Medication �Instructions �Recorded �Confirmed �Type
aspirin 81 mg tablet,delayed 81 mg PO DAILY Blood Clot 11/22/20 11/16/24 History
release Prevention/Tx
rosuvastatin 20 mg tablet 20 mg PO BID High Cholesterol 11/04/23 11/16/24 History
pantoprazole 40 mg tablet,delayed 40 mg PO BID Gastrointestinal Issue 12/01/23 11/16/24 History
release
torsemide 20 mg tablet 40 mg PO BID Fluid 04/26/24 11/16/24 History
Retention/Swelling
gabapentin 100 mg capsule 100 mg PO TID pain 09/01/24 11/16/24 History
potassium chloride 20 mEq 20 meq PO BID Electrolyte Repletion 09/01/24 11/16/24 History
tablet,extended release
magnesium oxide 400 mg PO DAILY Supplement 10/04/24 11/16/24 History
duloxetine 30 mg capsule,delayed 30 mg PO DAILY #0 caps 10/13/24 11/16/24 Rx
release
ipratropium 0.5 mg-albuterol 3 mg 3 ml inhalation R Q4HPRN PRN 10/13/24 11/16/24 Rx
(2.5 mg base)/3 mL nebulization sob/wheezing #0 mL
soln
nitroglycerin 0.4 mg sublingual 0.4 mg sublingual Q5MPRN PRN chest 10/13/24 11/16/24 Rx
tablet pain #0 tabs
midodrine 5 mg tablet 10 mg PO TID 11/16/24 11/16/24 History
Review of Systems
-
History Source: Patient
All other systems: Negative unless noted
Constitutional: Chills
Respiratory: Trouble Breathing
Cardiac: Syncope
Abdomen/GI: Vomiting
Neurological: Dizzy and Weakness
Physical Exam
Vital Signs
Temp Pulse Resp BP Pulse Ox
98.1 F 61 20 105/64 97
11/16/24 23:05 11/17/24 08:46 11/17/24 06:30 11/17/24 08:46 11/17/24 09:03
Lab Results
11/17/24 02:31
11/17/24 02:31
Troponin I < 0.012 ng/ml 11/16/24 16:50
Zbe-M-Jpulrrzhpor Pept 1060 pg/ml 11/16/24 13:12
Physical Exam
General: Well Developed, Well Nourished and No Apparent Distress
HEENT: Normocephalic and Anicteric
Respiratory: Wheezes
Cardiac: Regular Rhythm
Musculoskeletal: No Edema
Skin: Warm and Dry
Neuro: AO x 3
Psych: Calm
Impression / Plan
-
Hypotension, orthostasis:
-severe in that he has blacked out
-continue midodrine
-remain off diuretic for now
Wheezing:
-s/p breathing tx
-denies lung disease, but smoking history
-management per primary
Complex CAD with hx CABG and stenting:
-cardiac cath with Dr. Armijo 08/03/24 with stable coronary disease with a known occluded LAD, eccentric LM disease into LCX artery, no other arteries engaged during study- no hemodynamically significant CAD across the LM stenosis (iFR of LM into
circ 0.94)
-continue ASA, statin. Of BB and Imdur due to hypotension. Of note, patient reports that he was on Ranexa in the past and his [facility] senior gamemaster stopped it due to an EKG change with it? Details unknown. I suspect related to chronically prolonged QTc.
HFpEF (ICM with improved EF): chronic
-does not appear overloaded to assessment. CXR without edema or effusions
-hold torsemide
-repeat weight on floor- it looks erroneous in ER
Hx SMA stent:
-on ASA, statin
Hypokalemia:
-being replaced
Prolonged QTC- monitor, but chronic and stable
Mild/moderate AR: stable
Data Reviewed
-
EKG: Tracing Personally Visualized and interpreted (SB, prolonged QTC (stable))
Radiology: Report Reviewed by me (CXR: Low lung volumes. Significantly improved left perihilar pneumonia in comparison to recent prior study. No new focal parenchymal opacification.)
Medical Tests (Nuc Med, Echo etc): Report Reviewed by me (Eho 10/06/24: Normal biventricular size and systolic function without regional wall motion abnormality. Estimated LVEF 55-60%. Aortic sclerosis without stenosis. Mild/moderate aortic
regurgitation. )
Labs: Labs Reviewed by me
[2024-11-17] MEDS: DUONEB 3 ML INH (12:13)
--- NOTE | 2024-11-17 14:14 | W.PN.HOSP.TC ---
Today's Communication/Plan
-
see outlined plan
Assessment / Plan
Assessment / Plan
Assessment:
Hypovolemic shock with orthostatic hypotension
- resolved; off pressors
- continue midodrine
- remains on diuretics
- Cards following
CAD s/p CABG and stenting
- continue ASA/Statin
hx of SMA stent
- continue ASA/Statin
chronic HFpEF
Essential HTN
- holding diuretics
Hypokalemia
- replacement prn
Anxiety - prn Xanax
Adjustment disorder with depression, anxiety
- continue Cymbalta
Hyperlipidemia - statin
Chronic anemia - macrocytic. Hemoglobin at baseline
DVT ppx: Lovenox
Code: Full
Anticipated Discharge: 24 - 48 hours
Subjective/Interval History
-
Date of Service: November 17, 2024
no complaints
Objective Data
-
Labs:
Laboratory Results
11/17/24
02:31
WBC 4.8
Hgb 10.1 L
Hct 29.7 L
Plt Count 124 L
Sodium 134 L
Potassium 3.0 L
Chloride 97 L
Carbon Dioxide 34 H
BUN 10
Creatinine 0.8
Glucose 106 H
Calcium 8.2 L
Vital Signs:
Vital Signs
Temp Pulse Resp BP Pulse Ox
98.3 F 58 24 105/56 91
11/17/24 11:25 11/17/24 13:30 11/17/24 13:30 11/17/24 13:30 11/17/24 13:30
I&O
11/16/24 11/17/24 11/18/24
06:59 06:59 06:59
Output Total 250 / 250
Balance -250 / -250
Physical Exam
-
General: No Apparent Distress
HEENT: Normocephalic and Atraumatic
Respiratory: Negative Wheezes
Cardiac: Regular Rhythm and S1/S2
GI: Soft and Nontender
Genito-urinary: No Costovertebral Tender
Neuro: AO x 3
Psych: Calm
Data Reviewed
-
Total Time Spent with Patient (in minutes): 45
Labs: Labs Reviewed by me
[2024-11-17] MEDS: LOVENOX 40 MG SC (18:05)
[2024-11-18] VITALS (7 sets, daily range): BP systolic 88–128; BP diastolic 46–71; PULSE 61–65; O2SAT 95; BMI 28.1
[2024-11-18] MEDS: PROTONIX 40 MG PO ×2 (08:22→20:26)
[2024-11-18] MEDS: NEURONTIN 100 MG PO ×3 (08:22→21:14)
[2024-11-18] MEDS: CRESTOR 20 MG PO ×2 (08:22→20:26)
[2024-11-18] MEDS: KCL 20 MEQ PO ×2 (08:22→20:26)
[2024-11-18] MEDS: ASPIR LOW (ENTERIC COATED) 81 MG PO (08:22)
[2024-11-18] MEDS: MAGNESIUM OXIDE 500 MG PO (08:22)
[2024-11-18] MEDS: ProAmatine 10 MG PO ×3 (08:23→16:27)
[2024-11-18] MEDS: CYMBALTA DELAYED RELEASE 30 MG PO (08:23)
[2024-11-18 08:33] LABS: Hematocrit 34.4 % (39.0-52.0); Hemoglobin 11.1 g/dL (13.0-18.0); Mean Corp Hgb Conc. 32.3 g/dL (33.0-37.0); Mean Corpuscular Hgb 32.8 pg (27.0-31.0); Mean Corpuscular Volume 101.8 fL (80.0-94.0); Mean Platelet Volume 9.8 fL (7.4-10.4); Platelet Count 148 10^3/uL (130-400); Red Blood Cell Count 3.38 10^6/uL (4.70-6.10); Red Cell Dist. Width 13.9 % (11.5-14.5); White Blood Cell Count 7.1 10^3/uL (4.8-10.8)
[2024-11-18 09:01] LABS: Blood Urea Nitrogen 8 mg/dl (9-20); Calcium 8.6 mg/dl (8.4-10.2); Carbon Dioxide 30 mmol/L (22-30); Chloride 103 mmol/L (98-107); Estimated Creatinine Clearance 88 ml/min; Glucose 89 mg/dl (70-99); Sodium 137 mmol/L (135-145); eGFR > 60.00
--- NOTE | 2024-11-18 12:49 | W.PN.HOSP.TC ---
Addendum entered and electronically signed by Stacie Menendez MD 11/18/24 13:21:
wheezing - prn nebs. Is recovering from pneumonia
denies chest pain
Original Note:
Today's Communication/Plan
-
continue midodrine
remaining off diuretics
follow Cardiology recs
Assessment / Plan
Assessment / Plan
Assessment:
Hypovolemic shock with orthostatic hypotension
- resolved; off pressors
- continue midodrine
- remains off diuretics
- Cards following
CAD s/p CABG and stenting
- continue ASA/Statin
hx of SMA stent
- continue ASA/Statin
chronic HFpEF
Essential HTN
- holding diuretics
Hypokalemia
- replacement prn
Anxiety - prn Xanax
Adjustment disorder with depression, anxiety
- continue Cymbalta
Hyperlipidemia - statin
Chronic anemia - macrocytic. Hemoglobin at baseline
DVT ppx: Lovenox
Code: Full
Anticipated Discharge: 24 - 48 hours
Subjective/Interval History
-
Date of Service: November 18, 2024
denies any new complaints at present
reports some mild dizziness
Objective Data
-
Labs:
Laboratory Results
11/18/24
07:52
WBC 7.1
Hgb 11.1 L
Hct 34.4 L
Plt Count 148
Sodium 137
Potassium 4.0 D
Chloride 103
Carbon Dioxide 30
BUN 8 L
Creatinine 0.8
Glucose 89
Calcium 8.6
Vital Signs:
Vital Signs
Temp Pulse Resp BP Pulse Ox
98.2 F 67 17 109/71 92
11/18/24 07:22 11/18/24 07:22 11/18/24 07:22 11/18/24 12:03 11/18/24 07:22
I&O
11/17/24 11/18/24 11/19/24
06:59 06:59 06:59
Intake Total 240 / 240
Output Total 250 / 250 50 / 50 400 / 400
Balance -250 / -250 190 / 190 -400 / -400
Physical Exam
-
General: No Apparent Distress
HEENT: Normocephalic and Atraumatic
Respiratory: Negative Wheezes
Cardiac: Regular Rhythm and S1/S2
GI: Soft and Nontender
Genito-urinary: No Costovertebral Tender
Neuro: AO x 3
Hematologic / Lymphatic: No Lymphadenopathy
Psych: Calm
Data Reviewed
-
Total Time Spent with Patient (in minutes): 41
Labs: Labs Reviewed by me
--- NOTE | 2024-11-18 13:16 | W.PN.CD ---
Today's Communication / Plan
-
Recume usual outpatient cardiac meds
Impression / Plan
-
Orthostatic hypotension
- BP still soft but not orthostatic today
- On chronic midodrine, continue
Wheezing:
- Hx of smoking, recent neb treatments at home, he denies athma or diagnois of COPD
- Perhaps post infectious
- Per hospitalist
- Doubt from heart failure
Complex CAD with hx CABG and stenting:
-cardiac cath with Dr. Armijo 08/03/24 with stable coronary disease:
- 100% LAD, eccentric LM disease into LCX artery, no other arteries engaged during study- no hemodynamically significant CAD across the LM stenosis (iFR of LM into circ 0.94)
- Cathed here in 04/2024 as well
- Continue med rx
- continue ASA, statin. Off BB and Imdur due to hypotension. Of note, patient reports that he was on Ranexa in the past and his [place] staffing clerk stopped it due to an EKG change with it? Details unknown. I suspect related to chronically prolonged
QTc.
HFpEF (ICM with improved EF): chronic
- OK to resume usual outpatient regimen
- LVEDP at cath 04/2024 was 29 mmHg
Hx SMA stent:
-on ASA, statin
Hypokalemia:
-being replaced
Prolonged QTC- monitor, but chronic and stable
Mild/moderate AR: stable
Subjective:
+ for all questions asked: supine comfortable: + dyspnea, + dyspnea, + CP
Physical Exam
Vital Signs/Labs
Vital Signs
Temp Pulse Resp BP Pulse Ox
98.2 F 67 17 109/71 92
11/18/24 07:22 11/18/24 07:22 11/18/24 07:22 11/18/24 12:03 11/18/24 07:22
11/17/24 11/18/24 11/19/24
06:59 06:59 06:59
Actual Weight 97.8 kg 86.211 kg
11/18/24 07:52
11/18/24 07:52
Magnesium 1.7 mg/dl (1.6-2.3) 11/17/24 02:31
11/16/24
13:12
Fxb-B-Skapqngnfuz Pept 1060
LAB Results
11/16/24 11/16/24
13:12 16:50
Troponin I < 0.012 < 0.012
Physical Exam
Constitutional: No acute distress
EENT: Anicteric
Cardiovascular: Rhythm & rate is regular and Pedal edema is absent
Respiratory: Respiratory effort normal and Wheeze Present (diffuse)
GI: Soft and Distention absent
Neuro/Psych: AO x 3
Data Reviewed
-
Date of Service: November 18, 2024
[2024-11-18] MEDS: DUONEB 3 ML INH ×2 (15:58→20:37)
[2024-11-18] MEDS: DEMADEX 40 MG PO (16:25)
--- NOTE | 2024-11-18 16:25 | CM ---
configuration manager reviewed patient's chart and met with patient and patient lives with his partner Yolis in a 2 story home, patient is independent with adl's and uses a cane or walker with ambulation, patient drives.
PCP: Dr. Hendricks
Pharmacy: [facility]
Plan; Home with KENDRA from [facility] license of [facility], referral sent through [employer].
On license of [facility]
[phone]
[2024-11-18] MEDS: LOVENOX 40 MG SC (17:32)
[2024-11-19 03:27] VITALS: BP 91/53
[2024-11-19 05:38] VITALS: BMI 28.2
[2024-11-19 06:59] LABS: Hematocrit 30.9 % (39.0-52.0); Hemoglobin 10.6 g/dL (13.0-18.0); Mean Corp Hgb Conc. 34.3 g/dL (33.0-37.0); Mean Corpuscular Hgb 33.9 pg (27.0-31.0); Mean Corpuscular Volume 98.7 fL (80.0-94.0); Mean Platelet Volume 9.6 fL (7.4-10.4); Platelet Count 121 10^3/uL (130-400); Red Blood Cell Count 3.13 10^6/uL (4.70-6.10); Red Cell Dist. Width 13.9 % (11.5-14.5); White Blood Cell Count 6.5 10^3/uL (4.8-10.8)
[2024-11-19] MEDS: DUONEB 3 ML INH ×2 (07:08→11:00)
[2024-11-19 07:28] LABS: Blood Urea Nitrogen 8 mg/dl (9-20); Calcium 8.3 mg/dl (8.4-10.2); Carbon Dioxide 32 mmol/L (22-30); Chloride 100 mmol/L (98-107); Estimated Creatinine Clearance 88 ml/min; Glucose 90 mg/dl (70-99); Potassium 3.8 mmol/L (3.5-5.1); Sodium 136 mmol/L (135-145); eGFR > 60.00
[2024-11-19 08:22] VITALS: BP 87/54
--- NOTE | 2024-11-19 08:32 | W.PN.CD ---
Today's Communication / Plan
-
Increase midodrine to 15 mg 3 times daily
Hold torsemide on discharge for 5 days or until 3 pound weight gain, whichever comes first
Obtain standing weight
Patient request follow-up with his primary vascular ultrasound technologist Dr. Menjivar
Impression / Plan
-
Orthostatic hypotension, acute on chronic
-Increase midodrine to 15 mg 3 times daily
-Hold torsemide for 5 days upon discharge or after 3 pound weight gain, whichever comes first
-Please obtain standing weight prior to discharge
HFpEF (ICM with improved EF): chronic
-As above, hold torsemide on discharge. Resume after 5 days or 3 pound weight gain
-No role for SGLT2 inhibitor or spironolactone given his hypotension
-He will request follow-up with his outpatient vascular ultrasound technologist Dr. Menjivar
Complex CAD with hx CABG and stenting:
-cardiac cath with Dr. Armijo 08/03/24 with stable coronary disease:
- 100% LAD, eccentric LM disease into LCX artery, no other arteries engaged during study- no hemodynamically significant CAD across the LM stenosis (iFR of LM into circ 0.94)
- Cathed here in 04/2024 as well
- Continue med rx
- continue ASA, statin. Off BB and Imdur due to hypotension. Of note, patient reports that he was on Ranexa in the past and his [place] vascular ultrasound technologist stopped it due to an EKG change with it? Details unknown. I suspect related to chronically prolonged
QTc.
Hx SMA stent:
-on ASA, statin
Prolonged QTC- monitor, but chronic and stable
Mild/moderate AR: stable
Subjective:
Symptoms are stable. Wants to know why his blood pressure dropped prior to admission. Telemetry unremarkable.
Physical Exam
Vital Signs/Labs
Vital Signs
Temp Pulse Resp BP Pulse Ox
98.1 F 67 14 87/54 90
11/19/24 08:22 11/19/24 08:22 11/19/24 08:22 11/19/24 08:22 11/19/24 08:22
11/18/24 11/19/24 11/20/24
06:59 06:59 06:59
Actual Weight 86.211 kg 86.682 kg
11/19/24 06:41
11/19/24 06:41
Magnesium 1.7 mg/dl (1.6-2.3) 11/17/24 02:31
11/16/24
13:12
Bgj-U-Dduoorvwomq Pept 1060
LAB Results
11/16/24 11/16/24
13:12 16:50
Troponin I < 0.012 < 0.012
Physical Exam
Constitutional: No acute distress and Comfortable
Cardiovascular: Rhythm & rate is regular, Pedal edema present, S1S2 is normal and Murmur/rub/gallop absent
Respiratory: Respiratory effort normal and Crackles Present
Neuro/Psych: AO x 3
Data Reviewed
-
Date of Service: November 19, 2024
Medical Decision Making: Reviewed Test Results, Independent Historian Assessment, Test Interpretation and Review of Case with other Provider
EKG: Tracing Personally Visualized and interpreted
Echo: Report Reviewed by me
Labs: Labs Reviewed by me
[2024-11-19] MEDS: ProAmatine 10 MG PO (08:43)
[2024-11-19] MEDS: CYMBALTA DELAYED RELEASE 30 MG PO (08:43)
[2024-11-19] MEDS: PROTONIX 40 MG PO (08:43)
[2024-11-19] MEDS: NEURONTIN 100 MG PO (08:44)
[2024-11-19] MEDS: ASPIR LOW (ENTERIC COATED) 81 MG PO (08:44)
[2024-11-19] MEDS: MAGNESIUM OXIDE 500 MG PO (08:44)
[2024-11-19] MEDS: CRESTOR 20 MG PO (08:44)
[2024-11-19] MEDS: KCL 20 MEQ PO (08:44)
[2024-11-19 10:00] VITALS: BP 101/53; BP 102/68; BP 103/60; BP 84/56; PULSE 64; PULSE 66; PULSE 73
[2024-11-19] MEDS: ProAmatine 15 MG PO (12:08)
--- NOTE | 2024-11-19 12:25 | W.PN.HOSP.TC ---
Today's Communication/Plan
-
dc to home
Assessment / Plan
Assessment / Plan
Assessment:
Hypovolemic shock with orthostatic hypotension
- resolved; off pressors
- continue midodrine increased to 15mg TID per Cardiology
- remains off diuretics unless weight gain of 3 lbs or for 5 days; which comes first - per Cardiology
- Cards follow up op with Dr. Tiara [facility]
CAD s/p CABG and stenting
- continue ASA/Statin
hx of SMA stent
- continue ASA/Statin
chronic HFpEF
Essential HTN
- holding diuretics (see above)
Hypokalemia
- replacement prn
Anxiety - prn Xanax
Adjustment disorder with depression, anxiety
- continue Cymbalta
Hyperlipidemia - statin
Chronic anemia - macrocytic. Hemoglobin at baseline
DVT ppx: Lovenox
Code: Full
More than 30 minutes spent in discharge including
Final examination of the patient
Summarizing hospital stay
Instructions for continuing care to all relevant caregivers
Preparation of discharge records, prescriptions, and referral forms
Total time spent (in minutes): 41
Anticipated Discharge: Today
Subjective/Interval History
-
Date of Service: November 19, 2024
feels ok
denies lightheadedness at present
Objective Data
-
Labs:
Laboratory Results
11/19/24
06:41
WBC 6.5
Hgb 10.6 L
Hct 30.9 L
Plt Count 121 L
Sodium 136
Potassium 3.8
Chloride 100
Carbon Dioxide 32 H
BUN 8 L
Creatinine 0.8
Glucose 90
Calcium 8.3 L
Vital Signs:
Vital Signs
Temp Pulse Resp BP Pulse Ox
98.0 F 69 14 106/61 97
11/19/24 10:00 11/19/24 12:08 11/19/24 11:02 11/19/24 12:08 11/19/24 10:00
I&O
11/18/24 11/19/24 11/20/24
06:59 06:59 06:59
Intake Total 240 / 240 600 / 600
Output Total 50 / 50 1225 / 1225 400 / 400
Balance 190 / 190 -625 / -625 -400 / -400
Physical Exam
-
General: No Apparent Distress
HEENT: Normocephalic and Atraumatic
Respiratory: Negative Wheezes
Cardiac: Regular Rhythm and S1/S2
GI: Soft
Genito-urinary: No Costovertebral Tender
Musculoskeletal: No Edema
Neuro: AO x 3
Hematologic / Lymphatic: No Lymphadenopathy
Psych: Calm
Data Reviewed
-
Total Time Spent with Patient (in minutes): 41
Labs: Labs Reviewed by me
--- NOTE | 2024-11-19 12:29 | W.DS.TRANS ---
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
-
Discharge Instructions:
Discharge Diagnosis/Procedures orthostatic hypotension
Diet 2 Gram Sodium,Restrict fluids to 64 oz,Low
Cholesterol
Activity As tolerated
Other Services VN
Instructions:
Stand-Alone Forms:
Changes to Home Medications: Yes
Discharge Medications:
DC Medications w/original date entered in [employer]
aspirin 81 mg tablet,delayed release 81 mg PO DAILY Blood Clot Prevention/Tx 11/22/20
rosuvastatin 20 mg tablet 20 mg PO BID High Cholesterol 11/04/23
pantoprazole 40 mg tablet,delayed release 40 mg PO BID Gastrointestinal Issue 12/01/23
torsemide 20 mg tablet 40 mg PO BID Fluid Retention/Swelling 04/26/24
gabapentin 100 mg capsule 100 mg PO TID pain 09/01/24
potassium chloride 20 mEq tablet,extended release 20 meq PO BID Electrolyte Repletion 09/01/24
magnesium oxide 400 mg PO DAILY Supplement 10/04/24
duloxetine 30 mg capsule,delayed release 30 mg PO DAILY #0 caps 10/13/24
ipratropium 0.5 mg-albuterol 3 mg (2.5 mg base)/3 mL nebulization soln 3 ml inhalation R Q4HPRN PRN sob/wheezing #0 mL 10/13/24
nitroglycerin 0.4 mg sublingual tablet 0.4 mg sublingual Q5MPRN PRN chest pain #0 tabs 10/13/24
midodrine 5 mg tablet 15 mg (3 x 5 mg) PO TID @ 0800,1200,1700 #270 tabs 11/19/24
Home Medication Changes
Midodrine TID to 15mg
Pending Results: No
Total time spent discharging patient (in min): 42
--- NOTE | 2024-11-19 13:17 | CM ---
CM reviewed chart and noted dc order
Bedside meeting with pt
Plan for home today with [facility]
His roommate/Yolis has been contacted for ride home
IMM verbally reviewed- copy provided
Update provided to [facility] via [facility]
DC paperwork and VN order sent via [facility]
Discharge Disposition- home [facility], friend transport
[2024-11-19 13:50] VITALS: BP 108/62; BP 109/61; BP 114/72; BP 145/73; PULSE 64; PULSE 65; PULSE 72; O2SAT 97
[2024-11-19 13:58] VITALS: BP 145/73
[2024-11-19] MEDS: DUONEB INH (14:21)
== END 2024-11-19 14:35 | disposition home health service (06) | DRG 312 ==
LOC: 1 ACUTE 22:10
PROVIDERS: Nurse Practitioner Family; Physician Assistant; ADMITTING PHYSICIAN Hospitalist; ATTENDING PHYSICIAN Internal Medicine; EMERGENCY PHYSICIAN Emergency Medicine; FAMILY PHYSICIAN Internal Medicine; OTHER PHYSICIAN Internal Medicine
DX: I95.1 Orthostatic hypotension (principal); R57.1 Hypovolemic shock; I50.32 Chronic diastolic (congestive) heart failure; I25.112 Atherosclerotic heart disease of native coronary artery with refractory angina pectoris; I25.702 Atherosclerosis of coronary artery bypass graft(s), unspecified, with refractory angina pectoris; F17.200 Nicotine dependence, unspecified, uncomplicated; E87.6 Hypokalemia; I11.0 Hypertensive heart disease with heart failure; E78.00 Pure hypercholesterolemia, unspecified; Z82.49 Family history of ischemic heart disease and other diseases of the circulatory system; F43.23 Adjustment disorder with mixed anxiety and depressed mood; F43.22 Adjustment disorder with anxiety; D64.9 Anemia, unspecified; Z79.82 Long term (current) use of aspirin; Z79.899 Other long term (current) drug therapy; Z95.5 Presence of coronary angioplasty implant and graft
CPT/HCPCS: 71046; 80048; 80053; 81003; 81015; 83735; 83880; 84484; 85025; 85027; 87086; 93005; 94640; 96374; 97116; 97162; 97166; 99285

== ENCOUNTER 2024-12-13 14:08 | Inpatient (IN) | payer MEDICARE, SELFPAY ==
[2024-12-13] VITALS (7 sets, daily range): BP systolic 94–126; BP diastolic 58–86; BMI 30.1; BMI 26.4
[2024-12-13 11:57] LABS: % Eosinophils 1.8 % (0-6); % Immature Granulocytes 0.3 % (0-0.5); % Lymphocytes 21.1 % (20.5-51.1); % Neutrophils 66.8 % (42.2-75.2); Absolute Basophils 0.1 10^3/uL (0-0.2); Absolute Eosinophils 0.1 10^3/uL (0-0.7); Absolute Lymphocytes 1.4 10^3/uL (1.2-3.4); Absolute Monocytes 0.6 10^3/uL (0.1-0.6); Absolute Neutrophils 4.5 10^3/uL (1.4-6.5); Hematocrit 34.7 % (39.0-52.0); Hemoglobin 11.8 g/dL (13.0-18.0); Mean Corpuscular Hgb 32.9 pg (27.0-31.0); Mean Corpuscular Volume 96.7 fL (80.0-94.0); Nucleated Red Blood Cells % 0 % (-); Platelet Count 144 10^3/uL (130-400); Red Blood Cell Count 3.59 10^6/uL (4.70-6.10); Red Cell Dist. Width 13.7 % (11.5-14.5); White Blood Cell Count 6.7 10^3/uL (4.8-10.8)
[2024-12-13 12:09] LABS: INR 1.23; PT 15.8 Sec (11.4-14.6)
[2024-12-13 12:10] LABS: ALT (SGPT) 18 U/L (0-50); APTT 38.1 Sec (23.4-35.0); AST (SGOT) 34 U/L (17-59); Albumin 2.7 g/dl (3.5-5.0); Alkaline Phosphatase 144 U/L (38-126); Blood Urea Nitrogen 10 mg/dl (9-20); Calcium 8.6 mg/dl (8.4-10.2); Carbon Dioxide 37 mmol/L (22-30); Chloride 96 mmol/L (98-107); Glucose 119 mg/dl (70-99); Potassium 2.8 mmol/L (3.5-5.1); Sodium 137 mmol/L (135-145); Total Bilirubin 1.8 mg/dl (0.2-1.3); Total Protein 5.9 g/dl (6.3-8.2); eGFR > 60.00
--- NOTE | 2024-12-13 12:44 | ED.GENMED ---
History of Present Illness
General
Chief Complaint: Abdominal Symptoms
Source: patient
Exam Limitations: none
Time Seen by Provider: 12/13/24 12:31
Nursing documentation reviewed up to this point in time: agreed with
History of Present Illness
History of Present Illness:
69-year-old male presents emergency department due to abdominal pain and distention. He was sent in by his primary care physician. He is a chronic alcoholic, but has not drank for 4 months. He has never had a workup for this, but states he did
have some blood work in September.
Past History
Past History
ED Past Medical History: CAD, COPD (Ex-smoker), HTN and Hypercholesterolemia
ED Past Surgical History: Cardiac (According to PCP notes, patient had LHC 10/2022, attempted wiring of the LAD (75% mid LAD and 90% apical LAD stenosis), aborted secondary to severe tortuosity and bleeding of the SIFUENTES graft, on medical therapy.,
Echo o 11/2023 with LV EF of 65 to 70% mild to moderate aortic regurg. ), Orthopedic and Other (Hernia repair. Refractory angina on Renexa)
Social History
Tobacco: Smoker
Alcohol: Chronic alcoholic (Has not drank for 4 months)
Drug: None
Personal:
Living: with family
Employment: Retired
Review of Systems
Review of Systems
Allergies reviewed?: Yes
All Other Systems: Not applicable
Constitutional: Reports no symptoms
EENT: Reports no symptoms
Respiratory: Reports no symptoms
Cardiac: Reports no symptoms
ABD/GI: Reports abdominal pain; Denies black stools
: Reports no symptoms
Musculoskeletal: Reports no symptoms
Skin: Reports no symptoms
Neurological: Reports no symptoms
Endocrine: Reports no symptoms
Hematologic/Lymphatic: Reports no symptoms
Psychiatric: Reports no symptoms
Phy Exam
Physical Exam
Physical Exam:
Physical Exam
General: Afebrile
Neck: supple. no meningeal signs. normal posterior pharynx
Heart: s1/s2 regular rate and rhythm, no murmur. equal radial
pulses.
HEENT: Pupils equal round reactive to light, EOMI
Lungs: no acute respiratory distress. clear bilaterally
Abdomen: normal bowel sounds. Mild diffuse tenderness, no rebound or guarding, ascites
Neuro: alert and oriented. no focal neurological deficits cranial nerves II through XII intact
Skin: no rash
Psychiatric: well kept. interactive and cooperative
Extremities: no edema. no calf tenderness. negative homans. good distal pulses
Course
Orders/Labs/Results
Orders:
Orders
12/13/24 11:43
CMP [Comprehensive Metabolic Panel] Urgent
Complete Blood Count/With Diff Urgent
Magnesium Urgent
Comment: ADD
NT-proBNP Urgent
PT/INR [Prothrombin Time] Urgent
PTT Urgent
12/13/24 12:44
Add On- LAB Urgent
Tests Added?: magnesium
12/13/24 12:45
IV Insert/Care/Rem.- Treatment PRN
Potassium Chloride 10% Elixir [KCl Elixir] 40 meq PO NOW STA
12/13/24 12:46
Consult Interventional Radiology [IRAD CONSULT] Urgent
Consulting Provider: Edgard Li
Was physician already notified: Yes
Reason for Consult/Procedure: Paracentesis
Acknowledgement that appropriate orders are entered: Yes
12/13/24 12:52
Potassium Chloride [KCl] 40 meq 0.9% Sodium Chloride 250 ml [Nss] 250 ml IV NOW
12/13/24 13:02
Electrocardiogram (*1) Urgent
Reason for Study: Abdominal Pain
12/13/24 13:46
Admit/Transfer Patient As Directed
Co-Sign Provider:
Level of Care: Inpatient admission
Assign to:: Telemetry
Physician / Group: ascencion
Diagnosis: cirrhosis
Reason for Telemetry: Arrhythmia
Date to Stop Telemetry: 12/16/24
Time to Stop Telemetry: 11:00
Reason for Hospitalization: cirrhosis
Expected length of stay greater than two midnights?: Yes
ELOS- Estimated Length of Stay in days: 2
I certify the patient meets the requirements for IP care: Yes
Code Status As Directed
Resuscitation Status: Full Code
PRN Pain Medication Management As Directed
May give lesser potent ordered pain med per pt: Yes
preference::
Protocol:: Medication orders for pain may be administered in a
manner that supports deferring to patient preference
when the pt is:
- Requesting an ordered lesser potent pain medication.
Least to most potent pain medications are defined
as: acetaminophen < NSAID < tramadol < opioids
(morphine, oxycodone, hydromorphone).
- Requesting a lesser dose of the same medication IF
ORDERED.
- Requesting a less intrusive route of administration
if both routes are prescribed by the provider (PO <
IV).
12/13/24 13:47
Add On- LAB Routine
Tests Added?: bnp
CR Chest - 2 Views Urgent
Comment:
Reason For Exam: SOB
12/13/24 14:27
Body Fluid Albumin Routine
Fluid Source: Peritoneal (Ascites)
Date Specimen was Collected: 12/13/24
Time Specimen was Collected: 14:25
Body Fluid Amylase Routine
Fluid Source: Peritoneal (Ascites)
Date Specimen was Collected: 12/13/24
Time Specimen was Collected: 14:25
Body Fluid Cell Count Routine
What is the Body Fluid: peritoneal fluid
Date Specimen was Collected: 12/13/24
Time Specimen was Collected: 14:25
Body Fluid LDH Routine
Fluid Source: Peritoneal (Ascites)
Date Specimen was Collected: 12/13/24
Time Specimen was Collected: 14:
Body Fluid Protein Routine
Fluid Source: Peritoneal (Ascites)
Date Specimen was Collected: 12/13/24
Time Specimen was Collected: 14:25
Fluid Culture with Gram Stain Routine
HANNY Source: Peritoneal Fluid
Specimen Description:
Date Specimen was Collected: 12/13/24
Time Specimen was Collected: 14:
12/13/24 Dinner
Regular
At Your Request: Limited Participation
Does patient need a safe tray?: No
12/13/24 15:38
ISOSORBIDE MONOnitrate ER [Imdur (Extended Release)] 30 mg PO DAILY@1400
Nitroglycerin Sublingual [Nitrostat (Sublingual)] 0.4 mg SL Q5MPRN PRN
12/13/24 15:38
Activity As Directed
Activity Level: As Tolerated
Vital Signs As Directed
Frequency: Per unit guidelines
DX Deep Vein Thrombosis Video Routine
12/13/24 16:00
Ipratropium/Albuterol Sulfate [Duoneb] 3 ml INH R QID
Torsemide [Demadex] 40 mg PO BID@0800,1600
12/13/24 17:00
Midodrine [ProAmatine] 15 mg PO TID @ 0800,1200,1700
12/13/24 20:00
Gabapentin [Neurontin] 300 mg PO BID
Heparin 5,000 units SC Q12
Pantoprazole [Protonix] 40 mg PO BID
Potassium Chloride [KCl] 20 meq PO BID
12/14/24 06:00
Complete Blood Count/With Diff IN AM
Comprehensive Metabolic Panel IN AM
12/14/24 08:00
Aspirin Low Dose EC [Aspir Low (Enteric Coated)] 81 mg PO DAILY
Atorvastatin [Lipitor] 80 mg PO DAILY
Duloxetine Delayed Release [Cymbalta Delayed Release] 30 mg PO DAILY
ISOSORBIDE MONOnitrate ER [Imdur (Extended Release)] 60 mg PO DAILY
Magnesium l-Lactate [Mag-Tab Sr] 84 mg PO DAILY
12/16/24 11:00
DC Protocol for Telemetry ONCE
Abnormal Lab Results
12/13/24
11:43
RBC 3.59 L 10^6/uL
(4.70-6.10)
Hgb 11.8 L g/dL
(13.0-18.0)
Hct 34.7 L %
(39.0-52.0)
MCV 96.7 H fL
(80.0-94.0)
MCH 32.9 H pg
(27.0-31.0)
PT 15.8 H Sec
(11.4-14.6)
APTT 38.1 H Sec
(23.4-35.0)
Potassium 2.8 L mmol/L
(3.5-5.1)
Chloride 96 L mmol/L
(98-107)
Carbon Dioxide 37 H mmol/L
(22-30)
Glucose 119 H mg/dl
(70-99)
Total Bilirubin 1.8 H mg/dl
(0.2-1.3)
Alkaline Phosphatase 144 H U/L
(38-126)
Total Protein 5.9 L g/dl
(6.3-8.2)
Albumin 2.7 L g/dl
(3.5-5.0)
12/13/24 11:43
12/13/24 11:43
Vital Signs
Initial and Last Documented VS:
Initial Vital Signs
Temp Pulse Resp BP Pulse Ox
98.0 F 104 20 124/82 99
12/13/24 11:35 12/13/24 11:35 12/13/24 11:35 12/13/24 11:35 12/13/24 11:35
Last Documented Vital Signs
Temp Pulse Resp BP Pulse Ox
98.5 F 90 16 120/70 97
12/13/24 15:58 12/13/24 15:58 12/13/24 15:58 12/13/24 17:12 12/13/24 15:58
MDM/Problems Addressed
Differential Diagnosis Includes:
Peritonitis, hepatic failure
MDM/Problems Addressed:
69-year-old male with ascites, likely from cirrhosis. Interventional radiology to drain. Hypokalemia, repleted in ED. Admit to hospitalist.
Chronic conditions affecting care: HTN and CAD
Acute Exacerbation and/or Progression of Chronic Illness: HTN
*Radiology
Radiology exam reviewed: radiology read reviewed (Chest x-ray possible subtle pneumonia right lung base)
*Pulse Oximetry
Patient hypoxic: no
*EKG
Interpreted by ED Provider?: Yes
EKG Intrepretation Date: 12/13/24
EKG Intrepretation Time: 13:18
Interpretation: abnormal
Comparison EKG: changes noted
Heart Rate: 99
Rate: normal
Rhythm: sinus and PAC's
[place]: normal axis
Interval: normal interval
QRS Pattern: normal QRS
Ischemia: non-specific ST changes
*Stone Lathe Operator Interpretation
Rate: normal
Interpretation: normal
Heart Rate: 95
Rhythm: sinus
*Critical Care Note
Total Time (30-74mins, 75-104mins- exclusive of procedures): Not Applicable
Data Reviewed
Review of Other/Old Records Reveals: Labs (k=3.8 on 11/19/24)
Source: records
Patient Management
Social determinants of health affecting care: Living situation and Substance abuse
Discussion with other providers: Hospitalist and Wedger Machine (interventional radiologist to admit)
Escalation/DeEscalation of care consider admission/obs:
admit indicated
ED Attending Note
-
Portions of this chart may have been created with voice recognition software.� Occasional wrong word or��sound alike� substitutions may have occurred due to the inherent limitations of voice recognition software.
Discharge Plan
Departure
Patient Disposition: Admit
Date of Disposition: 12/13/24
Time of Disposition: 13:08
Admit to: Telemetry
Presentation/result/management discussed w/ accepting MD/DO: Hospitalist
Patient with high blood pressure during this ER visit?: Yes
Condition: Fair
Discharge Problem:
Abdominal ascites, Acute hypokalemia
Interventions
Interventions:
*Risk Screen - Suicide Last Done: 12/13/24 16:35
*General Assessment Last Done: 12/13/24 11:35
*Neglect/Abuse Screening Last Done: 12/13/24 13:12
*ED- Fall Risk Assessment Last Done: 12/13/24 13:12
*ED COVID-19 Vaccine History Last Done: 12/13/24 16:35
*Nursing Disposition Last Done: 12/13/24 15:48
RJ-Fewvnh-Ncluufebun Assessment Last Done: 12/13/24 12:21
Discharge Date and Time
Discharge Date/Time: 12/13/24 15:48
[2024-12-13] MEDS: KCL 270 MEQ IV (13:16)
[2024-12-13] MEDS: KCL ELIXIR 40 MEQ PO (13:23)
[2024-12-13 13:48] LABS: Magnesium 1.7 mg/dl (1.6-2.3)
--- NOTE | 2024-12-13 13:48 | HPS.HSE ---
Family Physician
-
Family Physician: Alida Hendricks
Chief Complaint
-
abdominal distention
History of Present Illness
69-year-old male past medical history of cardiomyopathy, CAD status post CABG, diastolic heart failure, multiple stents, chronic anemia,, hypertension, hyperlipidemia, anxiety/depression, COPD, prior alcohol use presenting for abdominal pain and
distention over the past 5 days. Presenting by his primary care physician.
He states that he has gained 9 pounds. Lower extremity edema stable. He has shortness of breath and ongoing productive cough. He denies any fevers or chills. He denies chest pain. He denies any prior history of liver disease. Denies vomiting or
diarrhea but poor PO intake.
He used to drink 2 beers a day but quit 4 months ago. He was never an excessive drinker even in his youth. He quit smoking several years ago.
No family history of liver disease.
Patient was admitted from 11/16 to 11/19 for orthostatic hypotension secondary to diuretics. Diuretics were held and patient was given IV fluids and midodrine was increased. He continues to feel dizzy when he ambulates although it has improved
somewhat from admission.
Medical History
Past Medical History
Past Medical History: Reports Other (cardiomyopathy, CAD status post CABG, diastolic heart failure, multiple stents, chronic anemia,, hypertension, hyperlipidemia, anxiety/depression, COPD, prior alcohol use)
Past Surgical History: Reports Other (Cardiac (According to PCP notes, patient had C 10/2022, attempted wiring of the LAD (75% mid LAD and 90% apical LAD stenosis), aborted secondary to severe tortuosity and bleeding of the SIFUENTES graft, on medical
therapy., Echo o 11/2023 with LV EF of 65 to 70% mild to moderate aortic regurg. ), Ortho)
Social History
Tobacco: Non-smoker
Alcohol: None
Drug: None
Family History
Family History: Not pertinent
Allergies / Home Medications
Allergies reflects when Allergies were last updated in [employer].
Home Medications with original date entered in [employer]
Allergy/Medication List:
Allergies
Allergy/AdvReac Type Severity Reaction Status Date / Time
No Known Allergies Allergy Verified 12/13/24 11:37
Home Medications
aspirin 81 mg tablet,delayed release 81 mg PO DAILY Blood Clot Prevention/Tx 11/22/20
pantoprazole 40 mg tablet,delayed release 40 mg PO BID Gastrointestinal Issue 12/01/23
gabapentin 100 mg capsule 300 mg PO BID pain 09/01/24
potassium chloride 20 mEq tablet,extended release 20 meq PO BID Electrolyte Repletion 09/01/24
magnesium oxide 400 mg PO DAILY Supplement 10/04/24
duloxetine 30 mg capsule,delayed release 30 mg PO DAILY #0 caps 10/13/24
nitroglycerin 0.4 mg sublingual tablet 0.4 mg sublingual Q5MPRN PRN chest pain #0 tabs 10/13/24
midodrine 5 mg tablet 15 mg (3 x 5 mg) PO TID @ 0800,1200,1700 #270 tabs 11/19/24
atorvastatin 80 mg tablet 80 mg PO DAILY 12/13/24
ipratropium 0.5 mg-albuterol 3 mg (2.5 mg base)/3 mL nebulization soln 3 ml inhalation QID 12/13/24
isosorbide mononitrate 30 mg tablet,extended release 24 hr 30 mg PO DAILY@1400 12/13/24
isosorbide mononitrate 60 mg tablet,extended release 24 hr 60 mg PO DAILY 12/13/24
torsemide 20 mg tablet 40 mg PO BID 12/13/24
Review of Systems
-
History Source: Patient
A 12 point ROS was completed and negative except as noted: Yes
Constitutional: Reports No Symptoms
EENT: Reports No Symptoms
Respiratory: Reports See HPI
Cardiac: Reports No Symptoms
Abdomen/GI: Reports See HPI
: Reports No Symptoms
Musculoskeletal: Reports No Symptoms
Skin: Reports No Symptoms
Neurological: Reports No Symptoms
Endocrine: Reports No Symptoms
Hematologic/Lymphatic: Reports No Symptoms
Psych: Reports No Symptoms
Physical Exam
Vital Signs
Vital Signs
Temp Pulse Resp BP Pulse Ox
98.0 F 104 20 124/82 99
12/13/24 11:35 12/13/24 11:35 12/13/24 11:35 12/13/24 11:35 12/13/24 11:35
Physical Exam
General: Well Developed, Well Nourished and No Apparent Distress
HEENT: NormoCephalic, Moist mucous membranes and Atraumatic
Respiratory: Clear
Cardiac: S1/S2 and Regular Rhythm; No Murmur or Rub
GI: Soft, Non Tender, Non Distended and Normal Bowel Sounds; No Organomegaly
Rectal: Deferred by Provider
Musculoskeletal: No Clubbing, No Cyanosis and No Edema
Skin: No Rash
Neuro: Nonfocal/grossly intact
Laboratory Results
-
12/13/24 11:43
12/13/24 11:43
Laboratory Results
PT 15.8 Sec (11.4-14.6) H 12/13/24 11:43
INR 1.23 12/13/24 11:43
APTT 38.1 Sec (23.4-35.0) H 12/13/24 11:43
Total Bilirubin 1.8 mg/dl (0.2-1.3) H 12/13/24 11:43
AST 34 U/L (17-59) 12/13/24 11:43
ALT 18 U/L (0-50) 12/13/24 11:43
Alkaline Phosphatase 144 U/L (38-126) H 12/13/24 11:43
Data Reviewed
-
Lab Data: Labs Reviewed by me
Old Records: Reviewed
Impression/Plan
-
IMPRESSION:
PLAN:
# New onset ascites possibly secondary to cirrhosis possibly from alcohol use versus cardiac cirrhosis
-IR consulted for paracentesis
-Paracentesis studies ordered
# Hypokalemia secondary to torsemide
-Replete potassium
-Check magnesium
# Dyspnea/cough
-Check chest x-ray to rule out pleural effusion versus CHF exacerbation versus pneumonia
-Check cardiac BNP
Former alcohol use disorder
CAD status post CABG/stents
-Continue aspirin and statin
-Continue isosorbide mononitrate
History of SMA stent
Chronic HFpEF
-Continue torsemide
Essential hypertension
Orthostatic hypotension
-Continue midodrine
Anxiety
Adjustment disorder with depression
-Continue duloxetine
Hyperlipidemia
Chronic anemia
COPD
-Continue DuoNeb
Full code
DVT prophylaxis�heparin
Regular diet
[2024-12-13 15:26] LABS: Body Fluid Mononuclear 83.2 %; Body Fluid Polymorphonuclear 16.8 %; Body Fluid WBC 215 /CUMM
[2024-12-13 15:27] LABS: Body Fluid Second Tech CF
[2024-12-13 15:35] LABS: NT-proBNP 694 pg/ml
[2024-12-13 15:36] LABS: Body Fluid Albumin < 1.0 g/dl; Body Fluid Amylase < 30 U/L; Body Fluid LDH < 90 U/L; Body Fluid Protein < 2.0 g/dl
[2024-12-13] MEDS: DUONEB 3 ML INH ×2 (15:55→19:36)
[2024-12-13] MEDS: DEMADEX 40 MG PO (17:11)
[2024-12-13] MEDS: IMDUR (EXTENDED RELEASE) 30 MG PO (17:12)
[2024-12-13] MEDS: ProAmatine 15 MG PO (17:12)
--- NOTE | 2024-12-13 17:53 | PTCARENOTE ---
Patient admitted to room 407-02 from ER. Vital signs stable. Patient oriented to room, use of TV and bed controls. Patient verbalizes understanding of teaching and denies questions at this time. Denies pain. Resting comfortably in bed without
complaint.
[2024-12-13] MEDS: KCL 20 MEQ PO (19:59)
[2024-12-13] MEDS: PROTONIX 40 MG PO (19:59)
[2024-12-13] MEDS: HEPARIN 5000 UNITS SC (19:59)
[2024-12-13] MEDS: NEURONTIN 300 MG PO (19:59)
[2024-12-14 07:00] VITALS: BP 93/65
[2024-12-14 07:24] LABS: % Basophils 0.9 % (0-2); % Eosinophils 2.1 % (0-6); % Immature Granulocytes 0.2 % (0-0.5); % Lymphocytes 22.1 % (20.5-51.1); % Monocytes 9.2 % (1.7-9.3); % Neutrophils 65.5 % (42.2-75.2); Absolute Basophils 0.1 10^3/uL (0-0.2); Absolute Eosinophils 0.1 10^3/uL (0-0.7); Absolute Lymphocytes 1.3 10^3/uL (1.2-3.4); Absolute Monocytes 0.5 10^3/uL (0.1-0.6); Absolute Neutrophils 3.8 10^3/uL (1.4-6.5); Hematocrit 30.3 % (39.0-52.0); Hemoglobin 10.6 g/dL (13.0-18.0); Mean Corpuscular Hgb 33.4 pg (27.0-31.0); Mean Corpuscular Volume 95.6 fL (80.0-94.0); Mean Platelet Volume 10.3 fL (7.4-10.4); Nucleated Red Blood Cells % 0 % (-); Platelet Count 118 10^3/uL (130-400); Red Blood Cell Count 3.17 10^6/uL (4.70-6.10); Red Cell Dist. Width 13.5 % (11.5-14.5); White Blood Cell Count 5.9 10^3/uL (4.8-10.8)
[2024-12-14] MEDS: DUONEB 3 ML INH ×4 (07:58→19:11)
[2024-12-14 08:01] LABS: ALT (SGPT) 14 U/L (0-50); AST (SGOT) 34 U/L (17-59); Albumin 2.2 g/dl (3.5-5.0); Alkaline Phosphatase 123 U/L (38-126); Blood Urea Nitrogen 9 mg/dl (9-20); Calcium 8.1 mg/dl (8.4-10.2); Carbon Dioxide 33 mmol/L (22-30); Chloride 101 mmol/L (98-107); Estimated Creatinine Clearance 88 ml/min; Glucose 82 mg/dl (70-99); Potassium 3.1 mmol/L (3.5-5.1); Sodium 137 mmol/L (135-145); Total Bilirubin 1.4 mg/dl (0.2-1.3); eGFR > 60.00
[2024-12-14] MEDS: DEMADEX 40 MG PO ×2 (08:15→17:06)
[2024-12-14] MEDS: PROTONIX 40 MG PO ×2 (08:15→21:08)
[2024-12-14] MEDS: ProAmatine 15 MG PO ×3 (08:15→17:06)
[2024-12-14] MEDS: NEURONTIN 300 MG PO ×2 (08:16→21:08)
[2024-12-14] MEDS: ASPIR LOW (ENTERIC COATED) 81 MG PO (08:16)
[2024-12-14] MEDS: IMDUR (EXTENDED RELEASE) 60 MG PO (08:16)
[2024-12-14] MEDS: KCL 20 MEQ PO (08:16)
[2024-12-14] MEDS: LIPITOR 80 MG PO (08:16)
[2024-12-14] MEDS: CYMBALTA DELAYED RELEASE 30 MG PO (08:16)
[2024-12-14] MEDS: HEPARIN 5000 UNITS SC (08:17)
[2024-12-14] MEDS: MAG-TAB SR 84 MG PO (08:17)
--- NOTE | 2024-12-14 09:12 | W.PN.HOSP.TC ---
Today's Communication/Plan
-
see bold
Assessment / Plan
Assessment / Plan
69-year-old male past medical history of cardiomyopathy, CAD status post CABG, diastolic heart failure, multiple stents, chronic anemia,, hypertension, hyperlipidemia, anxiety/depression, COPD, prior alcohol use presenting for abdominal pain and
distention over the past 5 days. Presenting by his primary care physician.
He states that he has gained 9 pounds. Lower extremity edema stable. He has shortness of breath and ongoing productive cough. He denies any fevers or chills. He denies chest pain. He denies any prior history of liver disease. Denies vomiting or
diarrhea but poor PO intake.
He used to drink 2 beers a day but quit 4 months ago. He was never an excessive drinker even in his youth. He quit smoking several years ago.
No family history of liver disease.
Patient was admitted from 11/16 to 11/19 for orthostatic hypotension secondary to diuretics. Diuretics were held and patient was given IV fluids and midodrine was increased. He continues to feel dizzy when he ambulates although it has improved
somewhat from admission.
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
Hepatitis panel negative, no family history, no recent heavy alcohol use
Status post paracentesis 12/13 draining 6 L, give IV albumin today
SAAG>1.1 with low protein c/w portal HTN- liver related
Appreciate GI input, recommend adding Aldactone 100 mg daily and lactulose 20 mg daily
Continue torsemide 40 mg twice a day
Low-sodium diet, fluid restriction
Obtain records from Dr. Kemp at [facility]. [facility] 12
#Hypokalemia secondary to torsemide
Continue to replete, magnesium normal
#Dyspnea/cough
#Possible pneumonia
Chest x-ray shows subtle pneumonia in the posterior right lung base
Start Rocephin and Doxy day 1 out of 5
Check COVID and flu
Former alcohol use disorder
CAD status post CABG/stents
-Continue aspirin and statin
-Continue isosorbide mononitrate
History of SMA stent
Chronic HFpEF
-Continue torsemide
Essential hypertension
Orthostatic hypotension
-Continue midodrine
Anxiety
Adjustment disorder with depression
-Continue duloxetine
Hyperlipidemia
Chronic anemia
COPD
-Continue DuoNeb
DVT prophylaxis�subcu Lovenox
Full code
Total time spent to see the patient on the floor, examine the patient, review data and lab results, discuss treatment plan with patient, nursing staff around 52 minutes.
Physical Exam
General: No acute distress
HEENT: Normocephalic, Atraumatic, EOMI, MMM
Respiratory: Clear to Auscultation bilaterally
Cardiac: Normal S1/S2, Regular Rate and Rhythm
GI: Soft, Nontender, Nondistended, Normal Bowel Sounds
Extremities: No Clubbing, Cyanosis, or Edema
Neuro: Nonfocal/Grossly Intact
Psych: Calm, Cooperative
Derm: No Visible lesions
Anticipated Discharge: 24 - 48 hours
Subjective/Interval History
-
Date of Service: December 14, 2024
Patient reports feeling much better after having his paracentesis. Shortness of breath is 90% improved. No chest pain, no fever, no vomiting.
Objective Data
-
Labs:
Laboratory Results
12/14/24
06:29
WBC 5.9
Hgb 10.6 L
Hct 30.3 L
Plt Count 118 L
Sodium 137
Potassium 3.1 L
Chloride 101
Carbon Dioxide 33 H
BUN 9
Creatinine 0.8
Glucose 82
Calcium 8.1 L
Total Bilirubin 1.4 H
AST 34
ALT 14
Alkaline Phosphatase 123
Vital Signs:
Vital Signs
Temp Pulse Resp BP Pulse Ox
98.1 F 82 16 99/58 95
12/14/24 07:00 12/14/24 07:59 12/14/24 07:59 12/14/24 08:15 12/14/24 07:59
I&O
12/13/24 12/14/24 12/15/24
06:59 06:59 06:59
Intake Total 240 / 240
Output Total 1100 / 1100
Balance -860 / -860
[2024-12-14 10:03] LABS: Magnesium 1.7 mg/dl (1.6-2.3)
[2024-12-14 11:30] VITALS: BP 149/67
--- NOTE | 2024-12-14 13:11 | CM ---
Patient seen bedside.
IA completed.
Patient lives with partner-Yolis in a 2 story home with 3 steps to enter.
patient ambulates with a cane.
Patient drives.
Patient had [facility] Prior to admission and would like to resume care.
Patient has been in [facility] in the past.
PCP; Dr Hendricks
Pharmacy: [facility]
Plan: home with [facility], referral sent.
[2024-12-14] MEDS: IMDUR (EXTENDED RELEASE) 30 MG PO (14:42)
[2024-12-14] MEDS: KCL 40 MEQ PO ×2 (14:43→21:08)
--- NOTE | 2024-12-14 14:53 | CON.GI ---
Addendum entered and electronically signed by Kim Tuttle DO 12/14/24 17:19:
Checks urine spot protein and sodium
Change diet to 2 g sodium
Diet education
Addendum entered and electronically signed by Kim Tuttle DO 12/14/24 17:15:
Patient seen and examined independently of CONFIGURATION SPECIALIST. I agree with her note with my additions below
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 There is been suspected
cirrhosis based on imaging, labs including mildly low platelets, mildly elevated INR and nodularity seen on imaging that I reviewed from CT scan from August 2024. He states he was aware of a discussion about cirrhosis but had never had any issues
because of it. He has never had ascites. He states quickly over the past 6 days he developed significant abdominal distention. Yesterday 6 L of yellow ascitic fluid was removed showing a SAG consistent with portal hypertension, total protein not
concerning for congestive hepatopathy. It was negative for infection. Cytology pending. He was given albumin post procedure. I reviewed his echo from prior September 2024 but did not show a dilated IVC. His risk factors for cirrhosis are more
likely PANDEY as he was never heavy drinker. No known family history and negative hepatitis panel in the past. He did see [facility] with Dr. Justine Holt just recently and liver was discussed. It sounds like labs were sent but we do
not have these results.
Last endoscopy was done October 2023 due to melena and no evidence of esophageal varices were noted.
He is on torsemide. Has never been on spironolactone. He does have issues keeping his potassium in normal range.
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
-- No heavy alcohol, no family history
-- Negative hepatitis panel
-- No concern for congestive hepatopathy. I reviewed his echo from September = normal IVC with no dilation, normal BNP, normal right atrium and ventricular size, no significant tricuspid regurgitation
-- Need to get the records from Dr. Holt as some of this workup have may have already been done
-- He does need abdominal ultrasound with Doppler especially since the ascitic fluid came quickly over the past 6 days
-- Will add 100 mg of Aldactone to his current regimen which would also help balance out the potassium loss from the torsemide
-- Questionable transplant candidate with significant cardiac disease
# Colon polyps -patient had multiple colon polyps with Dr. Cristobal that were not removed because he was taking Plavix at the time of the scope
-- If the patient is being worked up for liver transplant he will need colonoscopy done with polypectomies
Original Note:
Consultation
-
Date/Time Consultation Requested: 12/14/24 0900
Date/Time Consultation Performed: 12/14/24 1500
Requesting Provider: Romero Gates MD
Performing Provider: ZULMA Prescott, Kandis Marie MD
Reason for Consultation: ascites
Medical History
Chief Complaint / HPI
Chief Complaint: abdominal pain/rectal bleeding
History of Present Illness:
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
cath 2022 with attempted wiring LAD and aborted, ischemic CM, SMA stenosis with SMA stent 10/2023. prolonged QT, orthostasis, and prior ETOH/tobacco use follow with cardiology Dr. Langford and Dr. Sewell at [facility]. He was seen in 10/2023 with
Melena. He completed EGD with no varices, normal esophagus, erythema gastric body, single duodenal polyp. Colonoscopy with hemorrhoids, stool in colon, multiple 5-15 mm polyp not resected due to anticoagulation and to return for resection when off
anticoagulation. He did see Dr. Duran but held as still on anticoagulation. He was seen by GI inpatient in April 2024 with also noted cardiac issues with abdominal pain noted cirrhosis on imaging and treated with bentyl and laxative regiment and
work up continued for chest pain and cardiac issues. He was recommended GI OP follow up. He was not seen by GI if follow up after that visit but was seen in August with Dr. Justine Holt at [facility]. He recalled some blood
work and some discussion of cirrhosis and liver transplantation but did no recall details of conversation. As far as cardiac issues he had eventual cardiac cath with Dr. Armijo 08/03/24 with stable coronary disease with a known occluded LAD,
eccentric LM disease into LCX artery, no other arteries engaged during study- no hemodynamically significant CAD across the LM stenosis (iFR of LM into circ 0.94) and at some point stopped Plavix. he was hospitalized in September 2024 with PNA and
chest pain. Then returned on October with orthostasis/hypovolemic shock requiring pressors with med adjustment with midodrine up to TID. He now returns with abdominal pain and concern for ascites over 6 day period and asked to evaluation.
At this time patient admits to chronic dysphagia with food sticking upper esophagus for over a year. He also admits to occasional nausea/vomiting bile and abdominal pressure pain with distention. He will have constipation with straining with
BM but no diarrhea or recent GI bleeding. On admission labs notable for hbg 11.8, platelet drop to 118 after admission, INR 1.23, Na 137, K 2.8, creat 1, bili 1,8, AST 34, ALT 18, alk phos 144, albumin 2.7.
Past Medical History
Past Medical History: CAD (with multiple vessel disease), COPD, HTN, Hypercholesterolemia, PA and Other (pilonidal cyst, pre DM, colon polyps, cirrhosis, cardiomyopathy, anemia )
Past Surgical History: Cardiac (CABG, prior stent ), Orthopedic (lami, right knee replacement ) and Other (excision of pilonidal cyst, hernia repair, SMA stent 10/2023)
Social History
Tobacco: Former Smoker (quit 2 -2 1/2 years ago)
Alcohol: Former (quit 4 months ago prior beer several per day)
Drug: None
Living: Other (roommate )
Employment: Not Employed
Family History
Family History: Other (no family hx colon CA or polyps )
Allergies / Home Medications
Allergy/AdvReac Type Severity Reaction Status Date / Time
No Known Allergies Allergy Verified 12/13/24 11:37
�Medication �Instructions �Recorded
aspirin 81 mg tablet,delayed 81 mg PO DAILY Blood Clot 11/22/20
release Prevention/Tx
pantoprazole 40 mg tablet,delayed 40 mg PO BID Gastrointestinal Issue 12/01/23
release
gabapentin 100 mg capsule 300 mg PO BID pain 09/01/24
potassium chloride 20 mEq 20 meq PO BID Electrolyte Repletion 09/01/24
tablet,extended release
magnesium oxide 400 mg PO DAILY Supplement 10/04/24
duloxetine 30 mg capsule,delayed 30 mg PO DAILY #0 caps 10/13/24
release
nitroglycerin 0.4 mg sublingual 0.4 mg sublingual Q5MPRN PRN chest 10/13/24
tablet pain #0 tabs
midodrine 5 mg tablet 15 mg (3 x 5 mg) PO TID @ 11/19/24
0800,1200,1700 #270 tabs
atorvastatin 80 mg tablet 80 mg PO DAILY High Cholesterol 12/13/24
ipratropium 0.5 mg-albuterol 3 mg 3 ml inhalation QID Lung/Breathing 12/13/24
(2.5 mg base)/3 mL nebulization Issues
soln
isosorbide mononitrate 30 mg 30 mg PO DAILY@1400 Heart 12/13/24
tablet,extended release 24 hr Disease/Condition
isosorbide mononitrate 60 mg 60 mg PO DAILY Heart 12/13/24
tablet,extended release 24 hr Disease/Condition
torsemide 20 mg tablet 40 mg PO BID Fluid 12/13/24
Retention/Swelling
Review of Systems
-
History Source: Patient
Constitutional: Reports Weight Gain
EENT: Reports No Symptoms
Respiratory: Reports No Symptoms
Cardiac: Reports No Symptoms
Abdomen/GI: Reports Abdominal Pain (with pressure with fluid in abdomen ), Nausea, Vomiting and Other (chronic dysphagia )
Musculoskeletal: Reports Edema
Skin: Reports No Symptoms
Neurological: Reports Weakness
Endocrine: Reports No Symptoms
Hematologic/Lymphatic: Reports No Symptoms
Vital Signs
Temp Pulse Resp BP Pulse Ox
97.9 F 91 16 99/58 98
12/14/24 11:30 12/14/24 11:30 12/14/24 11:30 12/14/24 12:12 12/14/24 11:30
Physical Exam
Exam
General: Well Developed, Well Nourished and No Apparent Distress
Respiratory: Clear
Cardiac: Regular Rhythm and Peripheral Edema (+2 b/l)
GI: Soft, Tender (mild ) and Distended
Musculoskeletal: No Clubbing and No Cyanosis
Skin: Warm and Dry
Neuro: Awake, Alert and AO x 3
Psych: Calm
Results
WBC 5.9 10^3/uL (4.8-10.8) 12/14/24 06:29
Hgb 10.6 g/dL (13.0-18.0) L 12/14/24 06:29
Hct 30.3 % (39.0-52.0) L 12/14/24 06:29
MCV 95.6 fL (80.0-94.0) H 12/14/24 06:29
Plt Count 118 10^3/uL (130-400) L 12/14/24 06:29
Absolute Neuts (auto) 3.8 10^3/uL (1.4-6.5) 12/14/24 06:29
PT 15.8 Sec (11.4-14.6) H 12/13/24 11:43
INR 1.23 12/13/24 11:43
APTT 38.1 Sec (23.4-35.0) H 12/13/24 11:43
Sodium 137 mmol/L (135-145) 12/14/24 06:29
Potassium 3.1 mmol/L (3.5-5.1) L 12/14/24:
Chloride 101 mmol/L (98-107) 12/14/24
Carbon Dioxide 33 mmol/L (22-30) H 12/14/24:
BUN 9 mg/dl (9-20) 12/14/24
Creatinine 0.8 mg/dL (0.7-1.3) 12/14/24
Calcium 8.1 mg/dl (8.4-10.2) L 12/14/24
Total Bilirubin 1.4 mg/dl (0.2-1.3) H 12/14/24
AST 34 U/L (17-59) 12/14/24
ALT 14 U/L (0-50) 12/14/24
Alkaline Phosphatase 123 U/L (38-126) 12/14/24
Diagnostic Image Results:
08/2024 CT angio
1. SMA stent is patent, without evidence of significant stenosis. No bowel wall thickening or associated inflammatory change to suggest acute mesenteric ischemia.
2. Mild stenosis near the origin of the celiac axis, measuring less than 50%, unchanged compared to prior study. High-grade stenosis and possible focal occlusion at the origin of the LOLA, also unchanged.
3. Cirrhotic contour of the liver. No ascites.
4. Mild splenic enlargement.
5. Cholelithiasis without evidence of acute cholecystitis.
Prior GI Procedures:
EGD: 10/2023- Duran Normal esophagus.
- Erythematous mucosa in the gastric body. Biopsied.
- A single duodenal polyp. Resected and retrieved.
Colonoscopy: 10/2023 Duran - Preparation of the colon was fair.
- Hemorrhoids found on perianal exam.
- Stool in the transverse colon, in the ascending
colon and in the cecum.
- Multiple 5 to 15 mm polyps in the sigmoid colon, in
the transverse colon, in the ascending colon and in
the cecum.
- Internal hemorrhoids.
- No specimens collected.
Assessment / Plan
-
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
cath 2022 with attempted wiring LAD and aborted, ischemic CM, SMA stenosis with SMA stent 10/2023. prolonged QT, orthostasis, and prior ETOH/tobacco use follow with cardiology Dr. Langford and Dr. Sewell at [facility]. He was seen in 10/2023 with
Melena. He completed EGD with no varices, normal esophagus, erythema gastric body, single duodenal polyp. Colonoscopy with hemorrhoids, stool in colon, multiple 5-15 mm polyp not resected due to anticoagulation and to return for resection when off
anticoagulation. He did see Dr. Duran but held as still on anticoagulation. He was seen by GI inpatient in April 2024 with also noted cardiac issues with abdominal pain noted cirrhosis on imaging and treated with bentyl and laxative regiment and
work up continued for chest pain and cardiac issues. He was recommended GI OP follow up. He was not seen by GI if follow up after that visit but was seen in August with Dr. Justine Holt at [facility]. He recalled some blood
work and some discussion of cirrhosis and liver transplantation but did no recall details of conversation. As far as cardiac issues he had eventual cardiac cath with Dr. Armijo 08/03/24 with stable coronary disease with a known occluded LAD,
eccentric LM disease into LCX artery, no other arteries engaged during study- no hemodynamically significant CAD across the LM stenosis (iFR of LM into circ 0.94) and at some point stopped Plavix. he was hospitalized in September 2024 with PNA and
chest pain. Then returned on October with orthostasis/hypovolemic shock requiring pressors with med adjustment with midodrine up to TID. He now returns with abdominal pain and concern for ascites over 6 day period and asked to evaluation. No hx HE
in past.
-new onset ascites with 6 liter tap 12/13 SAAG>1.1 with low protein c/w portal HTN- liver related
-cirrhosis with decompensation
-mild abdominal pain
-anemia
-thrombocytopenia
-hypoalbuminemia
-hypokalemia
-recent admission with orthostasis with midodrine increased
-SMA stent 10/2023
-retained colon polyps on colonoscopy 10/2023- need follow up for resection
-CAD with prior CABG age 37, known LAD occlusion and stenting on ASA
other medical problems:
-PA
-HTN
-hypercholesterolemia
-hx GERD
-hernia repair
-prior tobacco abuse
-cholelithiasis
PLAN:
Etiology of ascites with related to known cirrhosis with decompensation --SAAG>1.1 low protein c/w portal HTN with
will obtain prior Dr. Kemp records from [facility] in August
MELD 12 based on admission labs
will review with Dr. Tuttle for diuresis -- concern for significant cardiac disease and recent orthostasis -- pt is currently on Torsemide BID
reviewed with patient will need decide on [facility] follow up at vs [facility] for management - may need period paracentesis
s/p EGD completed 10/2023
will need OP follow up to set up colonoscopy with retained polyps as now off Plavix
OP serology work up if not completed on [place]
check US with doppler-- last AFP 2.42 in April
replete K per medical team
with constipation will add Lactulose 20mg daily - monitor as also on mag supplement
-
-
Thank you for consultation and allowing me to participate in the patient's care. Please call the nutrition partner GI physician during the after hours with any questions or concerns.
[2024-12-14 15:00] VITALS: BP 148/84
[2024-12-14] MEDS: FLEXBUMIN 50 IV (16:16)
[2024-12-14 16:32] VITALS: BP 140/72
[2024-12-14] MEDS: STERILE WATER FOR INJECTION 10 ML IV (18:07)
[2024-12-14] MEDS: ROCEPHIN 1000 MG IV (18:08)
[2024-12-14 18:12] LABS: Urine Protein 15 mg/dl (0-12); Urine Sodium 10 mmol/L (30-90)
[2024-12-14 19:00] VITALS: BP 130/74
[2024-12-14] MEDS: ULTRAM 25 MG PO (20:45)
[2024-12-14] MEDS: VIBRAMYCIN 100 MG PO (21:08)
[2024-12-14] MEDS: HEPARIN SC (21:49)
[2024-12-14 23:00] VITALS: BP 130/70
[2024-12-15 00:04] VITALS: BP 104/59
[2024-12-15] MEDS: FLEXBUMIN 50 IV ×2 (00:05→10:30)
[2024-12-15 01:00] VITALS: BP 113/64
[2024-12-15 03:18] VITALS: BP 112/62
[2024-12-15] MEDS: DUONEB 3 ML INH ×2 (07:02→11:00)
[2024-12-15 07:15] LABS: Hematocrit 28.8 % (39.0-52.0); Hemoglobin 10.1 g/dL (13.0-18.0); Mean Corp Hgb Conc. 35.1 g/dL (33.0-37.0); Mean Corpuscular Hgb 33.6 pg (27.0-31.0); Mean Corpuscular Volume 95.7 fL (80.0-94.0); Mean Platelet Volume 10.1 fL (7.4-10.4); PT 15.7 Sec (11.4-14.6); Platelet Count 127 10^3/uL (130-400); Red Blood Cell Count 3.01 10^6/uL (4.70-6.10); Red Cell Dist. Width 13.5 % (11.5-14.5); White Blood Cell Count 7.9 10^3/uL (4.8-10.8)
[2024-12-15] MEDS: LIPITOR 80 MG PO (07:36)
[2024-12-15] MEDS: DUPHALAC/CHRONULAC 20 GRAMS PO (07:36)
[2024-12-15] MEDS: NEURONTIN 300 MG PO (07:37)
[2024-12-15] MEDS: ProAmatine 15 MG PO ×2 (07:37→12:43)
[2024-12-15] MEDS: MAG-TAB SR 84 MG PO (07:37)
[2024-12-15] MEDS: VIBRAMYCIN 100 MG PO (07:37)
[2024-12-15] MEDS: CYMBALTA DELAYED RELEASE 30 MG PO (07:38)
[2024-12-15] MEDS: ALDACTONE 100 MG PO (07:38)
[2024-12-15] MEDS: PROTONIX 40 MG PO (07:38)
[2024-12-15] MEDS: IMDUR (EXTENDED RELEASE) 60 MG PO (07:38)
[2024-12-15] MEDS: ASPIR LOW (ENTERIC COATED) 81 MG PO (07:38)
[2024-12-15] MEDS: KCL 40 MEQ PO (07:38)
[2024-12-15] MEDS: DEMADEX 40 MG PO (07:38)
[2024-12-15] MEDS: HEPARIN 5000 UNITS SC (07:39)
[2024-12-15 07:47] LABS: ALT (SGPT) 16 U/L (0-50); AST (SGOT) 33 U/L (17-59); Albumin 2.5 g/dl (3.5-5.0); Alkaline Phosphatase 123 U/L (38-126); Blood Urea Nitrogen 10 mg/dl (9-20); Calcium 8.4 mg/dl (8.4-10.2); Carbon Dioxide 33 mmol/L (22-30); Chloride 98 mmol/L (98-107); Estimated Creatinine Clearance 71 ml/min; Glucose 120 mg/dl (70-99); Magnesium 1.7 mg/dl (1.6-2.3); Potassium 3.6 mmol/L (3.5-5.1); Sodium 135 mmol/L (135-145); Total Bilirubin 1.2 mg/dl (0.2-1.3); Total Protein 5.1 g/dl (6.3-8.2); eGFR > 60.00
[2024-12-15 08:04] VITALS: BP 115/64
--- NOTE | 2024-12-15 08:43 | W.PN.HOSP.TC ---
Today's Communication/Plan
-
Cleared by GI for discharge today
Assessment / Plan
Assessment / Plan
69-year-old male past medical history of cardiomyopathy, CAD status post CABG, diastolic heart failure, multiple stents, chronic anemia,, hypertension, hyperlipidemia, anxiety/depression, COPD, prior alcohol use presenting for abdominal pain and
distention over the past 5 days. Presenting by his primary care physician.
He states that he has gained 9 pounds. Lower extremity edema stable. He has shortness of breath and ongoing productive cough. He denies any fevers or chills. He denies chest pain. He denies any prior history of liver disease. Denies vomiting or
diarrhea but poor PO intake.
He used to drink 2 beers a day but quit 4 months ago. He was never an excessive drinker even in his youth. He quit smoking several years ago.
No family history of liver disease.
Patient was admitted from 11/16 to 11/19 for orthostatic hypotension secondary to diuretics. Diuretics were held and patient was given IV fluids and midodrine was increased. He continues to feel dizzy when he ambulates although it has improved
somewhat from admission.
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
Hepatitis panel negative, no family history, no recent heavy alcohol use
Status post paracentesis 12/13 draining 6 L, received IV albumin
SAAG>1.1 with low protein c/w portal HTN- liver related
Appreciate GI input, recommend adding Aldactone 100 mg daily and lactulose 20 mg BID
Continue torsemide 40 mg twice a day
Cleared by GI for discharge, continue low-sodium diet and fluid restriction upon discharge
Follow up with Dr. Kemp at [place]. MELD 12
Follow-up with PCP in 1 week, will need repeat BMP at that time
#Hypokalemia secondary to torsemide
Repleted and resolved, magnesium normal
#Dyspnea/cough
#Possible pneumonia
Chest x-ray shows subtle pneumonia in the posterior right lung base
Will discharge on cefdinir and doxycycline to complete a 5-day course
Former alcohol use disorder
CAD status post CABG/stents
-Continue aspirin and statin
-Continue isosorbide mononitrate
History of SMA stent
Chronic HFpEF
-Continue torsemide
Essential hypertension
Orthostatic hypotension
-Continue midodrine
Anxiety
Adjustment disorder with depression
-Continue duloxetine
Hyperlipidemia
Chronic anemia
COPD
-Continue DuoNeb
DVT prophylaxis�subcu Lovenox
Full code
Physical Exam
General: No acute distress
HEENT: Normocephalic, Atraumatic, EOMI, MMM
Respiratory: Clear to Auscultation bilaterally
Cardiac: Normal S1/S2, Regular Rate and Rhythm
GI: Soft, Nontender, Nondistended, Normal Bowel Sounds
Extremities: No Clubbing, Cyanosis, or Edema
Neuro: Nonfocal/Grossly Intact
Psych: Calm, Cooperative
Derm: No Visible lesions
Anticipated Discharge: Today
Subjective/Interval History
-
Date of Service: December 15, 2024
Patient reports feeling better. Shortness of breath improved. No fever, no vomiting. No abdominal pain.
Objective Data
-
Labs:
Laboratory Results
12/15/24
06:25
WBC 7.9
Hgb 10.1 L
Hct 28.8 L
Plt Count 127 L
PT 15.7 H
INR 1.20
Sodium 135
Potassium 3.6
Chloride 98
Carbon Dioxide 33 H
BUN 10
Creatinine 1.0
Glucose 120 H
Calcium 8.4
Total Bilirubin 1.2
AST 33
ALT 16
Alkaline Phosphatase 123
Vital Signs:
Vital Signs
Temp Pulse Resp BP Pulse Ox
98.4 F 92 16 115/64 95
12/15/24 08:04 12/15/24 08:04 12/15/24 08:04 12/15/24 08:04 12/15/24 08:04
I&O
12/14/24 12/15/24 12/16/24
06:59 06:59 06:59
Intake Total 240 / 240 1000 / 1000
Output Total 1100 / 1100 800 / 800
Balance -860 / -860 200 / 200
--- NOTE | 2024-12-15 08:49 | W.PN.GI.CBS2 ---
Addendum entered and electronically signed by Maury Marie MD 12/15/24 12:59:
I saw and evaluated the patient. I reviewed the resident�s note and agree with findings and plan as documented in the resident�s note.
69-year-old male past medical history of cirrhosis follows at [place] presenting with ascites. Ascites with no SBP, studies consistent with portal hypertension in etiology. Aldactone added yesterday to his home to furosemide for diuretics. Doppler
done and was negative. Discussed with hospitalist, plan for discharge. Patient will follow-up at [place]. Recommend repeat BMP in 1 week. Having some constipation, can increase lactulose. Recommend 2 g sodium diet given ascites.
Original Note:
Today's Communication / Plan
-
increased lactulose to BID, low sodium diet
Assessment / Plan
-
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
and 2020) cath 2022 with attempted wiring LAD and aborted, ischemic CM, SMA stenosis with SMA stent 10/2023. prolonged QT, orthostasis, and prior ETOH/tobacco use follow with cardiology Dr. Langford and Dr. Sewell at [place]. He now has abdominal
pain and concern for ascites over 6 day period and asked to evaluation. No hx HE in past.
Assessment:
-new onset ascites with 6 liter tap 12/13 SAAG>1.1 with low protein c/w portal HTN- liver related
-cirrhosis with decompensation
-retained colon polyps on colonoscopy 10/2023- need follow up for resection
-HTN
-hx GERD
-cholelithiasis
Plan:
- Etiology of ascites --SAAG>1.1 low protein c/w portal HTN
- pending prior Dr. Kemp records from [place] [facility] in August
- no significant concern for congestive related cirrhosis at this time, as echo done in 09/2024 with no IVC dilatation
- will need OP follow up to set up colonoscopy with retained polyps as now off Plavix
- US with Doppler today: Moderate ascites, Cirrhotic morphology of liver, No evidence of portal venous thrombosis, Cholelithiasis, and Mild dilation CBD 9mm
- MELD 12 today
- Increase Lactulose 20mg to BID
- Low sodium diet <2g
- May need repeated paracentesis due to continued ascites
Subjective
Subjective
Date of Service: December 15, 2024
Patient continues to feel bloated and states he has left sided abdominal pain. He also says he has not have a BM since Thursday.
Objective
Data Reviewed
Laboratory Data:
Laboratory Results
12/15/24 06:25
12/15/24 06:25
Laboratory Results
PT 15.7 Sec (11.4-14.6) H 12/15/24 06:25
INR 1.20 12/15/24 06:25
APTT 38.1 Sec (23.4-35.0) H 12/13/24 11:43
Phosphorus 3.0 mg/dl (2.5-4.5) 12/15/24 06:25
Magnesium 1.7 mg/dl (1.6-2.3) 12/15/24 06:25
Total Bilirubin 1.2 mg/dl (0.2-1.3) 12/15/24 06:25
AST 33 U/L (17-59) 12/15/24 06:25
ALT 16 U/L (0-50) 12/15/24 06:25
Alkaline Phosphatase 123 U/L (38-126) 12/15/24 06:25
Vital Signs and I&O:
Vital Signs
Temp Pulse Resp BP Pulse Ox
98.4 F 92 16 115/64 95
12/15/24 08:04 12/15/24 08:04 12/15/24 08:04 12/15/24 08:04 12/15/24 08:04
I&O
12/14/24 12/15/24 12/16/24
06:59 06:59 06:59
Intake Total 240 / 240 1000 / 1000
Output Total 1100 / 1100 800 / 800
Balance -860 / -860 200 / 200
Physical Exam
Physical Exam
HEENT: Moist mucous membranes
Cardiology: Normal Sinus Rhythm, S1 and S2
Pulmonary: Clear
GI: Soft, Distended and Tender (left sided)
Extremities: No Edema
Neuro: Non Focal
[2024-12-15] MEDS: OMNICEF 300 MG PO (10:30)
[2024-12-15 10:41] VITALS: BP 118/70
[2024-12-15 11:29] VITALS: BP 102/67
--- NOTE | 2024-12-15 12:30 | W.DCSUMMARY ---
Discharge Summary
Discharge Data
Date of Admission: 12/13/24
Date of Discharge: 12/15/24
-
Pending Results: No
Hospital Course
Discharge diagnosis:
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
Possible pneumonia
Hypokalemia
Constipation
Coronary artery disease
Chronic heart failure with a preserved ejection fraction
Essential hypertension
Orthostatic hypotension on midodrine
Anxiety/depression
Consults: GI, IR
CXR:
Findings suspicious for subtle pneumonia in the posterior right lung base. Mild linear band of atelectasis in the left upper lobe.
Doppler US:
1. Moderate ascites throughout the abdomen.
2. Cirrhotic morphology of liver, also seen on prior CT dated 09/01/2024.
3. No evidence of portal venous thrombosis. Slow flow within the portal venous system, suggestive of portal hypertension.
4. Cholelithiasis without evidence of acute cholecystitis.
5. Mild dilation of the common bile duct, which measures 9 mm in diameter.
6. Pancreas was not well seen due to overlying bowel gas.
Procedures:
12/13/2024 paracentesis draining 6 L
Hospital course:
69-year-old male with a past medical history of hypertension, CAD, CHF, and orthostatic hypotension on midodrine was admitted for new onset ascites. Patient had a paracentesis, draining 6 L. He received IV albumin. He was seen in conjunction with
GI. His SAAG>1.1 with low protein consistent with portal hypertension. GI suspects he has cirrhosis from nonalcoholic fatty liver disease. He is continued on torsemide 40 mg twice a day. GI added spironolactone 100 mg daily, and lactulose 20 mg
twice a day.
Patient complained of dyspnea with activity and a cough. Chest x-ray was concerning for possible pneumonia. He will be discharged on cefdinir and doxycycline to complete a 5-day course.
Patient is medically stable for discharge. He needs to follow-up with his primary care doctor in 1 week. He needs to have BMP with his PCP at that time. He also needs to follow-up with his usual GI doctor, Dr. Kemp, at [facility] in 2-3 weeks.
Disposition: Home self-care
Discharge planning: Required 41 minutes
Discharge Plan
-
Patient Disposition: Home (Routine Discharge)
Discharge Diagnosis/Procedures: Cirrhosis from nonalcoholic fatty liver disease, ascites, possible pneumonia
Condition: Fair
Diet: 2 Gram Sodium and Restrict fluids to 64 oz
Activity: As tolerated
Driving Restrictions: As prior to admission
Blood Work: BMP with PCP in 1 week
Activity Restrictions/Additional Instructions:
Follow-up with your usual GI doctor, Dr. Kemp, in 2-3 weeks for your cirrhosis and ascites.
Follow-up with your primary care doctor in 1 week.
You need to get a repeat BMP/blood work with your PCP at that time.
Referrals:
Alida Hendricks MD [Family Provider] - in one week
Prescriptions:
New
doxycycline hyclate 100 mg Capsule
100 mg PO Q12 4 Days Qty: 8 0RF
cefdinir 300 mg Capsule
300 mg PO Q12 4 Days Qty: 8 0RF
spironolactone 50 mg Tablet
100 mg PO DAILY Qty: 30 0RF
lactulose 10 gram/15 mL Solution
20 g PO BID 30 Days Qty: 1800 0RF
Continued
aspirin 81 MG tablet,delayed release (DR/EC)
81 mg PO DAILY
pantoprazole 40 mg tablet,delayed release (DR/EC)
40 mg PO BID
gabapentin 100 mg Capsule
300 mg PO BID
potassium chloride 20 mEq Tablet Extended Release
20 meq PO BID
magnesium oxide 400 mg magnesium Tablet
400 mg PO DAILY
duloxetine 30 mg Capsule,Delayed Release(Dr/Ec)
30 mg PO DAILY Qty: 0 0RF
nitroglycerin 0.4 mg Tablet, Sublingual
0.4 mg sublingual Q5MPRN PRN (Reason: chest pain) Qty: 0 0RF
midodrine 5 mg Tablet
15 mg PO TID @ 0800,1200,1700 Qty: 270 0RF
atorvastatin 80 mg tablet
80 mg PO DAILY
torsemide 20 mg tablet
40 mg PO BID
isosorbide mononitrate 30 mg Tablet Extended Release 24 Hr
30 mg PO DAILY@1400
isosorbide mononitrate 60 mg Tablet Extended Release 24 Hr
60 mg PO DAILY
ipratropium-albuterol 0.5 mg-3 mg(2.5 mg base)/3 mL solution for nebulization
3 ml inhalation QID
Discharge Orders:
Discharge Patient (As Directed); Ordered 12/15/24
Ordered By: Romero Gates
Discharge Date and Time
Discharge Date/Time: 12/15/24 13:26
Print Language: UPPER SORBIAN
--- NOTE | 2024-12-15 13:03 | PTCARENOTE ---
Reviewed discharge instructions with patient. Patient denies questions at this time. IV and tele removed. Reinforced need for blood work next week with primary care provider and the follow up with his GI doctor in 2 to 3 weeks. Patient verbalizes
understanding of all medications including to finish all antibiotics as ordered. Patient has clearance to drive home from MD. Patient awaiting transport to lobby as car is parked out front of the ER.
--- NOTE | 2024-12-15 14:10 | CM ---
Patient for d/c home today.
Patient drove.
Plan: home with [facility]
== END 2024-12-15 13:26 | disposition home health service (06) | DRG 441 ==
LOC: 4 EAST ACU 14:08
PROVIDERS: Emergency Medicine; Nurse Practitioner Adult Health; Radiology Diagnostic Radiology; ADMITTING PHYSICIAN Hospitalist; ATTENDING PHYSICIAN Family Medicine; EMERGENCY PHYSICIAN Emergency Medicine; FAMILY PHYSICIAN Internal Medicine; OTHER PHYSICIAN Internal Medicine
PROC: 0W9G3ZZ Drainage of Peritoneal Cavity, Percutaneous Approach (ICD-10-PCS; 2024-12-13)
DX: K75.81 Nonalcoholic steatohepatitis (NASH) (principal); J18.9 Pneumonia, unspecified organism; I25.112 Atherosclerotic heart disease of native coronary artery with refractory angina pectoris; R18.8 Other ascites; I50.32 Chronic diastolic (congestive) heart failure; K76.6 Portal hypertension; K74.60 Unspecified cirrhosis of liver; E87.6 Hypokalemia; K59.00 Constipation, unspecified; I11.0 Hypertensive heart disease with heart failure; I95.1 Orthostatic hypotension; F43.21 Adjustment disorder with depressed mood; F41.9 Anxiety disorder, unspecified; J44.9 Chronic obstructive pulmonary disease, unspecified; D64.9 Anemia, unspecified; E78.00 Pure hypercholesterolemia, unspecified; Z95.1 Presence of aortocoronary bypass graft; Z79.82 Long term (current) use of aspirin; T50.1X5A Adverse effect of loop [high-ceiling] diuretics, initial encounter; Z79.899 Other long term (current) drug therapy; I25.5 Ischemic cardiomyopathy; Z86.0100 Personal history of colon polyps, unspecified; R13.10 Dysphagia, unspecified; Z96.651 Presence of right artificial knee joint
CPT/HCPCS: 49083; 71046; 76700; 80053; 82042; 82150; 82570; 83615; 83735; 83880; 84100; 84156; 84157; 84300; 85025; 85027; 85610; 85730; 87015; 87070; 87205; 89051; 93005; 93975; 94640; 96374; 99285; P9047

== ENCOUNTER 2025-01-04 13:18 | Inpatient (IN) | payer MEDICARE, SELFPAY ==
[2025-01-04] VITALS (24 sets, daily range): BP systolic 83–130; BP diastolic 51–94; BMI 25.4
--- NOTE | 2025-01-04 09:15 | ED.GENMED ---
History of Present Illness
General
Chief Complaint: Abdominal Symptoms
Source: patient
Time Seen by Provider: 01/04/25 08:44
History of Present Illness
History of Present Illness:
This patient is a 69-year-old male presents emergency department as advised by his primary care doctor. He saw his PCP yesterday, noted that he ran out of his spironolactone approximately 3 days ago. He notes abdominal distention despite a
paracentesis just 3 weeks ago. He denies abdominal pain at rest but says it hurts 'when you press on it'. He denies urinary symptoms, his bowel movements are normal without blood or change in color. He denies chest pain and denies headache but
does report chronic shortness of breath that seems slightly worse. He reports orthopnea for months. He also notes unintended weight loss recently. He denies fever, chills, diaphoresis, nausea, vomiting, or other complaints. As per text from PCP
office, patient noted to have DENICE and concern regarding SBP.
Past History
Past History
ED Past Medical History: CAD, COPD (Ex-smoker), HTN, Hypercholesterolemia and Other (Ascites, cirrhosis)
ED Past Surgical History: Cardiac (According to PCP notes, patient had LHC 10/2022, attempted wiring of the LAD (75% mid LAD and 90% apical LAD stenosis), aborted secondary to severe tortuosity and bleeding of the SIFUENTES graft, on medical therapy.,
Echo o 11/2023 with LV EF of 65 to 70% mild to moderate aortic regurg. ), Orthopedic and Other (Hernia repair. Refractory angina on Renexa)
Social History
Tobacco: Former smoker
Alcohol: Former (Has not drank for 4 months)
Drug: None
Personal: Single
Living: other (With former partner)
Employment: Retired
Phy Exam
Physical Exam
Physical Exam:
GENERAL: Alert , in no apparent distress
EYE: pupils equal and reactive, conjunctive a pink, sclera nonicteric
NECK: Supple, no significant adenopathy.
ENT: o/p clr, mmm.
CARDIAC: Regular rate and rhythm .
LUNGS: Equal breath sounds bilaterally, no acute respiratory distress, speaks in full sentences easily, diffuse wheezing noted with scattered rhonchi, occasional cough
ABDOMEN: Soft, distended with diffuse nonspecific tenderness to palpation,, no r/g, percussion dullness noted suspecting ascites
NEUROLOGICAL: Alert and oriented, no focal neuro deficits
SKIN: Warm and dry, skin intact.
MUSCULOSKELETAL: 1+ bilateral lower extremity edema, well perfused.
PSYCH: Normal and appropriate interaction.
Course
Orders/Labs/Results
Orders:
Orders
01/04/25 09:21
Cardiac Monitoring- Treatment ONCE
Pulse Ox/cont/shift [RESP] Urgent
Quantity: 1
01/04/25 09:22
Electrocardiogram (*1) Urgent
Reason for Study: Other
Other Reason for Exam: sepsis
EKG- Treatment ONCE
01/04/25 09:23
CR Chest - 2 Views Urgent
Comment:
Reason For Exam: sob, wheezing, hx cirrhosis
01/04/25 09:24
US Renal Only W/O Bladder Urgent
Reason For Exam: kidney insufficiency
01/04/25 09:43
CMP [Comprehensive Metabolic Panel] Urgent
Complete Blood Count/With Diff Urgent
Ferritin Urgent
Comment: ADD ON
Iron Urgent
Comment: ADD ON
Lactic Acid Q4H
Comment: CANCEL 2nd LACTIC ACID IF 1st LACTIC ACID IS LESS THAN 2
PTT Urgent
Prothrombin Time Urgent
Total Iron Binding Urgent
Comment: ADD ON
Blood Culture Q30M
HANNY Source: Blood/Venous
Specimen Description:
01/04/25 09:46
Blood Culture Q30M
HANNY Source: Blood/Venous
Specimen Description:
01/04/25 09:56
Spironolactone [Aldactone] 100 mg PO NOW STA
01/04/25 10:02
Consult Interventional Radiology [IRAD CONSULT] Urgent
Consulting Provider: Edgard Li
Was physician already notified: Yes
Reason for Consult/Procedure: paracentesis
Acknowledgement that appropriate orders are entered: Yes
01/04/25 10:03
Ipratropium/Albuterol Sulfate [Duoneb] 3 ml INH R NOW ONE
01/04/25 11:57
Body Fluid Albumin Routine
Fluid Source: Peritoneal (Ascites)
Date Specimen was Collected: 01/04/25
Time Specimen was Collected: 11:56
Body Fluid Amylase Routine
Fluid Source: Peritoneal (Ascites)
Date Specimen was Collected: 01/04/25
Time Specimen was Collected: 11:56
Body Fluid Cell Count Routine
What is the Body Fluid: peritoneal fluid
Date Specimen was Collected: 01/04/25
Time Specimen was Collected: 11:56
Body Fluid LDH Routine
Fluid Source: Peritoneal (Ascites)
Date Specimen was Collected: 01/04/25
Time Specimen was Collected: 11:56
Body Fluid Protein Routine
Fluid Source: Peritoneal (Ascites)
Date Specimen was Collected: 01/04/25
Time Specimen was Collected: 11:56
Fluid Culture with Gram Stain Routine
HANNY Source: Peritoneal Fluid
Specimen Description:
Date Specimen was Collected: 01/04/25
Time Specimen was Collected: 11:56
01/04/25 12:46
Code Status As Directed
Resuscitation Status: Full Code
Bisacodyl [Dulcolax] 10 mg RECTAL [id number] PRN
Docusate W/Senna [Senokot-S] 1 tablet PO BIDPRN PRN
Polyethylene Glycol Powder [Miralax] 17 grams PO DAILYPRN PRN
Activity As Directed
Activity Level: As Tolerated
Intake/ Output As Directed
Frequency: Per unit guidelines
Neurological Checks As Directed
Frequency: Per unit guidelines
Vital Signs As Directed
Frequency: Per unit guidelines
Weight As Directed
Frequency: Daily
01/04/25 12:47
DX Deep Vein Thrombosis Video Routine
01/04/25 12:51
Acetaminophen [Tylenol] 650 mg PO Q6HPRN PRN
01/04/25 13:00
0.9% Sodium Chloride 1000 ml [Nss] 1,000 ml IV 100 mls/hr
01/04/25 13:01
Admit/Transfer Patient As Directed
Co-Sign Provider:
Level of Care: Inpatient admission
Assign to:: Medical/Surgical
Physician / Group: Viridiana Little
Diagnosis: Ascites
Reason for Hospitalization: Ascites
Expected length of stay greater than two midnights?: Yes
ELOS- Estimated Length of Stay in days: 2
I certify the patient meets the requirements for IP care: Yes
PRN Pain Medication Management As Directed
May give lesser potent ordered pain med per pt: Yes
preference::
Protocol:: Medication orders for pain may be administered in a
manner that supports deferring to patient preference
when the pt is:
- Requesting an ordered lesser potent pain medication.
Least to most potent pain medications are defined
as: acetaminophen < NSAID < tramadol < opioids
(morphine, oxycodone, hydromorphone).
- Requesting a lesser dose of the same medication IF
ORDERED.
- Requesting a less intrusive route of administration
if both routes are prescribed by the provider (PO <
IV).
01/04/25 14:00
Urinalysis Reflex To Culture Urgent
Date Specimen was Collected: 01/04/25
Time Specimen was Collected: 13:59
01/04/25 Dinner
NPO
Allow oral meds: No
Allow clear liquids: No
NPO with Ice Chips: Yes
01/04/25 18:00
Enoxaparin Sodium [Lovenox] 40 mg SC QPM
01/05/25 06:16
Urinalysis IN AM
Date Specimen was Collected: 01/05/25
Time Specimen was Collected: 06:08
01/05/25 06:32
Ammonia IN AM
Amylase IN AM
Complete Blood Count/With Diff IN AM
Comprehensive Metabolic Panel IN AM
Iron IN AM
Magnesium IN AM
PTT IN AM
Prothrombin Time IN AM
Abnormal Lab Results
01/04/25
09:43
RBC 3.48 L 10^6/uL
(4.70-6.10)
Hgb 11.4 L g/dL
(13.0-18.0)
Hct 33.2 L %
(39.0-52.0)
MCV 95.4 H fL
(80.0-94.0)
MCH 32.8 H pg
(27.0-31.0)
Absolute Neuts (auto) 7.0 H 10^3/uL
(1.4-6.5)
Absolute Lymphs (auto) 0.9 L 10^3/uL
(1.2-3.4)
Neutrophils % 79.9 H %
(42.2-75.2)
Lymphocytes % 10.0 L %
(20.5-51.1)
PT 15.1 H Sec
(11.4-14.6)
APTT 35.3 H Sec
(23.4-35.0)
Creatinine 1.8 H mg/dL
(0.7-1.3)
Glucose 169 H mg/dl
(70-99)
TIBC 243 L ug/dl
(261-462)
Alkaline Phosphatase 193 H U/L
(38-126)
Total Protein 5.9 L g/dl
(6.3-8.2)
Albumin 2.8 L g/dl
(3.5-5.0)
01/04/25 09:43
01/04/25 09:43
Vital Signs
Initial and Last Documented VS:
Initial Vital Signs
Temp Pulse Resp BP Pulse Ox
98.4 F 88 16 130/64 98
01/04/25 08:38 01/04/25 08:38 01/04/25 08:38 01/04/25 08:38 01/04/25 08:38
Last Documented Vital Signs
Temp Pulse Resp BP Pulse Ox
98.7 F 70 18 96/60 97
01/05/25 11:46 01/05/25 12:13 01/05/25 11:46 01/05/25 12:13 01/05/25 11:46
*Critical Care Note
Total Time (30-74mins, 75-104mins- exclusive of procedures): Not Applicable
Update Note
Update Note:
Patient presents to the Emergency Department with ___abdominal distention
Number and Complexity of Problems Addressed at the Encounter
� Chronic conditions affecting care:
� Acute Exacerbation and/or Progression of Chronic Illness:
� Differential Diagnosis includes: But not limited to ascites, SBP, hepatorenal syndrome, pneumonia, etc. etc.
Amount and/or Complexity of Data to be Reviewed and Analyzed
� I performed an independent evaluation of and my interpretation is:
EKG: Read by me, normal sinus rhythm, normal rate, normal axis, QT noted to be prolonged at 545
CT:
Xrays:
Laboratory Studies:
Other:
� Review of other/old records reveals:
� Clinical information was obtained by an independent historian:
� Prescriptions/Medications Considered but not given:
� Further testing considered but not performed:
Risk of Complications and/or Morbidity or Mortality of Patient Management
� Social determinants of health affecting care:
� Discussion with other providers (PCP, Hospitalists, Consultants, etc):
� Escalation of care including admission/observation vs risk of discharge considered:
ED Attending Note
-
Portions of this chart may have been created with voice recognition software.� Occasional wrong word or��sound alike� substitutions may have occurred due to the inherent limitations of voice recognition software.
Discharge Plan
Departure
Patient Disposition: Admit
Date of Disposition: 01/04/25
Time of Disposition: 11:53
Admit to: Telemetry
Presentation/result/management discussed w/ accepting MD/DO: Hospitalist
Condition: Fair
Discharge Problem:
Ascites
Interventions
Interventions:
*Risk Screen - Suicide Last Done: 01/04/25 22:23
*General Assessment Last Done: 01/04/25 09:06
*Neglect/Abuse Screening Last Done: 01/04/25 08:38
*ED- Fall Risk Assessment Last Done: 01/04/25 09:06
*ED COVID-19 Vaccine History Last Done: 01/04/25 22:10
*Nursing Disposition Last Done: 01/04/25 20:26
YV-Dhtbmc-Imhyxtykiq Assessment Last Done: 01/04/25 09:06
Discharge Date and Time
Discharge Date/Time: 01/04/25 20:27
[2025-01-04 09:58] LABS: % Basophils 0.7 % (0-2); % Eosinophils 1.6 % (0-6); % Immature Granulocytes 0.5 % (0-0.5); % Monocytes 7.3 % (1.7-9.3); % Neutrophils 79.9 % (42.2-75.2); Absolute Basophils 0.1 10^3/uL (0-0.2); Absolute Eosinophils 0.1 10^3/uL (0-0.7); Absolute Lymphocytes 0.9 10^3/uL (1.2-3.4); Absolute Monocytes 0.6 10^3/uL (0.1-0.6); Hematocrit 33.2 % (39.0-52.0); Hemoglobin 11.4 g/dL (13.0-18.0); Mean Corp Hgb Conc. 34.3 g/dL (33.0-37.0); Mean Corpuscular Hgb 32.8 pg (27.0-31.0); Mean Corpuscular Volume 95.4 fL (80.0-94.0); Mean Platelet Volume 10.4 fL (7.4-10.4); Nucleated Red Blood Cells % 0 % (-); Platelet Count 153 10^3/uL (130-400); Red Blood Cell Count 3.48 10^6/uL (4.70-6.10); Red Cell Dist. Width 14.4 % (11.5-14.5); White Blood Cell Count 8.8 10^3/uL (4.8-10.8)
[2025-01-04 10:10] LABS: ALT (SGPT) 27 U/L (0-50); AST (SGOT) 48 U/L (17-59); Albumin 2.8 g/dl (3.5-5.0); Alkaline Phosphatase 193 U/L (38-126); Blood Urea Nitrogen 14 mg/dl (9-20); Calcium 8.8 mg/dl (8.4-10.2); Carbon Dioxide 27 mmol/L (22-30); Chloride 105 mmol/L (98-107); Estimated Creatinine Clearance 39 ml/min; Glucose 169 mg/dl (70-99); Potassium 4.3 mmol/L (3.5-5.1); Sodium 138 mmol/L (135-145); Total Bilirubin 1.1 mg/dl (0.2-1.3); Total Protein 5.9 g/dl (6.3-8.2); eGFR 40.49
[2025-01-04 10:27] LABS: INR 1.14; PT 15.1 Sec (11.4-14.6)
[2025-01-04 10:39] LABS: APTT 35.3 Sec (23.4-35.0)
[2025-01-04] MEDS: ALDACTONE 100 MG PO (10:47)
[2025-01-04] MEDS: DUONEB 3 ML INH (10:47)
[2025-01-04 12:44] LABS: Body Fluid WBC 461 /CUMM
[2025-01-04 12:45] LABS: Body Fluid Mononuclear 69.4 %; Body Fluid Polymorphonuclear 30.6 %
[2025-01-04 12:52] LABS: Body Fluid Albumin < 1.0 g/dl; Body Fluid Amylase 56 U/L; Body Fluid LDH 114 U/L; Body Fluid Protein < 2.0 g/dl
[2025-01-04 12:54] LABS: Body Fluid Second Tech RP
[2025-01-04] MEDS: NSS 1000 IV (14:01)
--- NOTE | 2025-01-04 14:30 | W.CON.NEPH ---
Consultation
-
Date/Time Consultation Requested: January 04, 2025 at 2 PM
Date/Time Consultation Performed: January 04 2025 2:30 PM
Requesting Provider: Dr. Koch
Performing Provider: Dr. Polanco
Reason for Consultation: Acute kidney injury
Medical History
-
Chief Complaint: Abdominal distention acute kidney injury
History of Present Illness:
69-year-old male presents emergency department as advised by his primary care doctor. He saw his PCP yesterday, noted that he ran out of his spironolactone approximately 3 days ago. He notes abdominal distention despite a paracentesis just 3 weeks
ago. He follows the [facility] hepatology. He has no significant alcohol history. Unknown etiology of his liver disease per patient.
Consult for acute kidney injury with a creatinine of 1.6 normal baseline
Other history includes CAD, COPD (Ex-smoker), HTN, Hypercholesterolemia and Other (Ascites, cirrhosis)
Past Medical History
=
ED Past Medical History: CAD, COPD (Ex-smoker), HTN, Hypercholesterolemia and Other (Ascites, cirrhosis)
Social History
Tobacco: Former Smoker
Alcohol: None
Family History
Family History: Not Pertinent
Allergies / Home Medications
Allergy/AdvReac Type Severity Reaction Status Date / Time
No Known Allergies Allergy Verified 01/04/25 08:39
�Medication �Instructions �Recorded �Confirmed �Type
aspirin 81 mg tablet,delayed 81 mg PO DAILY Blood Clot 11/22/20 01/04/25 History
release Prevention/Tx
pantoprazole 40 mg tablet,delayed 40 mg PO BID Gastrointestinal Issue 12/01/23 01/04/25 History
release
gabapentin 100 mg capsule 300 mg PO BID pain 09/01/24 01/04/25 History
potassium chloride 20 mEq 20 meq PO BID Electrolyte Repletion 09/01/24 01/04/25 History
tablet,extended release
magnesium oxide 400 mg PO DAILY Supplement 10/04/24 01/04/25 History
duloxetine 30 mg capsule,delayed 30 mg PO DAILY #0 caps 10/13/24 01/04/25 Rx
release
atorvastatin 80 mg tablet 80 mg PO DAILY High Cholesterol 12/13/24 01/04/25 History
ipratropium 0.5 mg-albuterol 3 mg 3 ml inhalation QID Lung/Breathing 12/13/24 01/04/25 History
(2.5 mg base)/3 mL nebulization Issues
soln
isosorbide mononitrate 30 mg 30 mg PO DAILY@1400 Heart 12/13/24 01/04/25 History
tablet,extended release 24 hr Disease/Condition
isosorbide mononitrate 60 mg 60 mg PO DAILY Heart 12/13/24 01/04/25 History
tablet,extended release 24 hr Disease/Condition
torsemide 20 mg tablet 40 mg PO BID Fluid 12/13/24 01/04/25 History
Retention/Swelling
lactulose 10 gram/15 mL oral 20 g (30 mL) PO BID 30 days #1,800 12/15/24 01/04/25 Rx
solution mL
spironolactone 50 mg tablet 100 mg (2 x 50 mg) PO DAILY #30 12/15/24 01/04/25 Rx
tabs
midodrine 5 mg tablet 15 mg PO TID 01/04/25 01/04/25 History
nitroglycerin 0.4 mg sublingual 0.4 mg sublingual [id number] PRN 01/04/25 01/04/25 History
tablet chest pain
Review of Systems
-
Abdominal distention, lower extremity edema decreased urine output
All other systems: Negative unless noted
Physical Exam
Vital Signs
Vital Signs
Temp Pulse Resp BP Pulse Ox
98.1 F 80 19 105/60 99
01/04/25 11:34 01/04/25 14:00 01/04/25 14:00 01/04/25 14:00 01/04/25 13:45
Lab Results
WBC 8.8 10^3/uL (4.8-10.8) 01/04/25 09:43
RBC 3.48 10^6/uL (4.70-6.10) L 01/04/25 09:43
Hgb 11.4 g/dL (13.0-18.0) L 01/04/25 09:43
Hct 33.2 % (39.0-52.0) L 01/04/25 09:43
Plt Count 153 10^3/uL (130-400) 01/04/25 09:43
Sodium 138 mmol/L (135-145) 01/04/25 09:43
Potassium 4.3 mmol/L (3.5-5.1) 01/04/25 09:43
Chloride 105 mmol/L (98-107) 01/04/25 09:43
Carbon Dioxide 27 mmol/L (22-30) 01/04/25 09:43
BUN 14 mg/dl (9-20) 01/04/25 09:43
Creatinine 1.8 mg/dL (0.7-1.3) H 01/04/25 09:43
eGFR 40.49 01/04/25 09:43
Glucose 169 mg/dl (70-99) H 01/04/25 09:43
Calcium 8.8 mg/dl (8.4-10.2) 01/04/25 09:43
Albumin 2.8 g/dl (3.5-5.0) L 01/04/25 09:43
Physical Exam
General no acute distress
HEENT no cephalic atraumatic extraocular muscle intact no scleral icterus no JVD neck supple
lungs clear to auscultation bilateral
heart regular S1-S2 positive
abdomen soft nontender positive bowel sounds
extremities edema bilateral
Neurologically nonfocal alert and oriented x 3
Skin no lesions no abrasions no petechiae
Psych normal affect no bizarre behavior
Data Reviewed
-
Ultrasound: Image Personally Visualized and interpreted (RIGHT KIDNEY: The right kidney measures 11.7 x 5.7 x 5.2 cm. There is no hydronephrosis. A simple cyst in the right lower pole measures 4.1 x 3.7 x 4.0 cm. LEFT KIDNEY: The left kidney
measures 13.1 x 5.6 x 5.1 cm. There is no hydronephrosis.)
Labs: Labs Reviewed by me and Discussed with Patient
Assessment/Plan
-
69-year-old male presents emergency department as advised by his primary care doctor. He saw his PCP yesterday, noted that he ran out of his spironolactone approximately 3 days ago. He notes abdominal distention despite a paracentesis just 3 weeks
ago. He follows the [facility] hepatology. He has no significant alcohol history. Unknown etiology of his liver disease per patient.
Consult for acute kidney injury with a creatinine of 1.6 normal baseline
Other history includes CAD, COPD (Ex-smoker), HTN, Hypercholesterolemia and Other (Ascites, cirrhosis)
Impression.
Acute kidney injury.
Liver cirrhosis.
CHF status post CABG 1998.
Plan.
Status post paracentesis 01/04 3.3 L.
Agree with volume expansion status post paracentesis.
Sodium restrict
Hold spironolactone for now
Add albumin
Add midodrine
Order urine indices
A.m. labs
[2025-01-04 14:45] LABS: Urine Albumin 3+ (Neg - Trace); Urine Bilirubin Negative (Negative); Urine Character Clear (Clear); Urine Color Yellow; Urine Glucose Negative (Negative); Urine Ketone Negative (Negative); Urine Leukocyte Negative (Negative); Urine Nitrite Negative (Negative); Urine Urobilinogen Negative (Neg - 1+)
[2025-01-04 14:52] LABS: Urine Occult Blood 2+ (Negative)
--- NOTE | 2025-01-04 15:19 | HPS.HSE ---
Addendum entered and electronically signed by Viridiana Wynn MD 01/04/25 17:19:
I saw and evaluated the patient. I reviewed the resident�s note and agree with findings and plan as documented in the resident�s note.
A/P:
# Ascites secondary to decompensated cirrhosis:
# Recent para 3 weeks TESTER WAFER SUBSTRATE drained 6000 cc of fluid
Paracentesis performed on DOA which drained 3350 cc of fluid
SAAG was more than 1.1, protein was less than 2.5 indicating cirrhosis
ascitic fluid negative for SBP
Cont TESTER WAFER SUBSTRATE lactulose
Consult GI
# Prerenal DENICE, possible Hepatorenal Syndrome
Creatinine 1.8 from baseline 1.0
Renal ultrasound unrevealing: negative for hydronephrosis
Nephrology consult
albumin, midodrine per renal
hold spironolactone
Trend BMP
# Unspecified anemia, possible due to liver failure
Follow iron panel, b12 and folate levels
# GERD
Continue pantoprazole 40 mg BID
DVT ppc- lovenox SQ
full code
Original Note:
Family Physician
-
Family Physician: Ev Collins MD
Chief Complaint
-
Shortness of breath and abdominal swelling
History of Present Illness
69-year-old, with a past medical history of Zambrano cirrhosis, ascites, hypertension, COPD, CAD. He was at his PCP's office for refill of spirinolactone and presented to the ED from there. Presented to the ED with with abdominal dilatation, abdominal
pain, and shortness of breath. Had a paracentesis 3 weeks ago and they drained and 6000cc was drained. He follows [facility] hepatology. He underwent thoracocentesis with IRAD soon after arriving in ED. Drained 3350 cc of fluid.
Medical History
Past Medical History
Past Medical History: Reports CAD, COPD, HTN and Other (Ascites, Cirrhosis)
Past Surgical History: Reports Cardiac and Other (hernia repair)
Social History
Tobacco: Former Smoker
Alcohol: Former
Drug: None
Personal: Single
Living: Other (former partner)
Employment: Retired
Family History
Family History: Not pertinent
Allergies / Home Medications
Allergies reflects when Allergies were last updated in [facility].
Home Medications with original date entered in [facility]
Allergy/Medication List:
Allergies
Allergy/AdvReac Type Severity Reaction Status Date / Time
No Known Allergies Allergy Verified 01/04/25 08:39
Home Medications
aspirin 81 mg tablet,delayed release 81 mg PO DAILY Blood Clot Prevention/Tx 11/22/20
pantoprazole 40 mg tablet,delayed release 40 mg PO BID Gastrointestinal Issue 12/01/23
gabapentin 100 mg capsule 300 mg PO BID pain 09/01/24
potassium chloride 20 mEq tablet,extended release 20 meq PO BID Electrolyte Repletion 09/01/24
magnesium oxide 400 mg PO DAILY Supplement 10/04/24
duloxetine 30 mg capsule,delayed release 30 mg PO DAILY #0 caps 10/13/24
atorvastatin 80 mg tablet 80 mg PO DAILY High Cholesterol 12/13/24
ipratropium 0.5 mg-albuterol 3 mg (2.5 mg base)/3 mL nebulization soln 3 ml inhalation QID Lung/Breathing Issues 12/13/24
isosorbide mononitrate 30 mg tablet,extended release 24 hr 30 mg PO DAILY@1400 Heart Disease/Condition 12/13/24
isosorbide mononitrate 60 mg tablet,extended release 24 hr 60 mg PO DAILY Heart Disease/Condition 12/13/24
torsemide 20 mg tablet 40 mg PO BID Fluid Retention/Swelling 12/13/24
lactulose 10 gram/15 mL oral solution 20 g (30 mL) PO BID 30 days #1,800 mL 12/15/24
spironolactone 50 mg tablet 100 mg (2 x 50 mg) PO DAILY #30 tabs 12/15/24
midodrine 5 mg tablet 15 mg PO TID 01/04/25
nitroglycerin 0.4 mg sublingual tablet 0.4 mg sublingual [id number] PRN chest pain 01/04/25
Review of Systems
-
History Source: Patient
A 12 point ROS was completed and negative except as noted: Yes
Constitutional: Reports No Symptoms
EENT: Reports No Symptoms
Respiratory: Reports Trouble Breathing
Cardiac: Reports No Symptoms
Abdomen/GI: Reports Abdominal Pain and Other (abdominal fullness)
: Reports No Symptoms
Musculoskeletal: Reports No Symptoms
Skin: Reports No Symptoms
Neurological: Reports No Symptoms
Endocrine: Reports No Symptoms
Hematologic/Lymphatic: Reports No Symptoms
Psych: Reports No Symptoms
Physical Exam
Vital Signs
Vital Signs
Temp Pulse Resp BP Pulse Ox
98.1 F 80 19 105/60 99
01/04/25 11:34 01/04/25 14:00 01/04/25 14:00 01/04/25 14:00 01/04/25 13:45
Physical Exam
General: Comfortable
Respiratory: Rhonchi (scattered rhonchi) and Other (cough)
Cardiac: S1/S2 and Regular Rhythm
GI: Tender (Diffuse mild tenderness to palpation) and Distended
Musculoskeletal: Edema, Left Lower Extremity (1+) and Edema, Right Lower Extremity (1+)
Skin: Warm and Dry
Neuro: Awake, Alert, Oriented and AO x 3
Psych: Calm
Laboratory Results
-
01/04/25 09:43
01/04/25 09:43
Laboratory Results
PT 15.1 Sec (11.4-14.6) H 01/04/25 09:43
INR 1.14 01/04/25 09:43
APTT 35.3 Sec (23.4-35.0) H 01/04/25 09:43
Lactic Acid Cancelled 01/04/25 13:30
Total Bilirubin 1.1 mg/dl (0.2-1.3) 01/04/25 09:43
AST 48 U/L (17-59) 01/04/25 09:43
ALT 27 U/L (0-50) 01/04/25 09:43
Alkaline Phosphatase 193 U/L (38-126) H 01/04/25 09:43
Data Reviewed
-
Diagnostic Radiology: Report Reviewed by me and Discussed with Physician
Ultrasound: Report Reviewed by me and Discussed with Physician
Lab Data: Labs Reviewed by me and Discussed with Physician
Impression/Plan
-
Ascites secondary to decompensated cirrhosis:
- Paracentesis was performed which drained 3350 cc of liquid, he also had fluid drained 3 weeks ago which yielded 6000 cc of fluid
- SAAG was more than 1.1, protein was less than 2.5 indicating cirrhosis
- Polymorphonuclear leucocyte count less than 250 ruling out SBP
- Patient has former history of drinking and quit only 4 months ago
- Consulted GI
- Holding lactulose until renal function improves
- Check CBC CMP LFTs ammonia in AM
- Trend daily weight
Prerenal DENICE
Heaptorenal Syndrome?:
- Creatinine was 1.8, which is an increase from last times admission of 1.0
- Suspect this to be secondary to cirrhosis, portal hypertension
- Renal ultrasound negative for any hydronephrosis
- Nephrology consulted
- Hold patients diuretics
- ordered albumin, midodrine, urine indices ( urine sodium), hold spironolactone, 2 gm sodium diet
- Trend BMP
Unspecified anemia:
- Hgb is 11.4 which is near to his baseline
- Check b12 and folate
- Most likely due to chronic inflammation with liver cirrhosis
GERD:
- Continue pantoprazole 40 mg BID
DVT ppc- lovenox
full code
[2025-01-04] MEDS: FLEXBUMIN 100 IV ×2 (15:21→17:15)
[2025-01-04 15:25] LABS: Urine Bacteria Few (Negative); Urine Red Blood Cell 0-2 /HPF (0-2)
[2025-01-04 15:26] LABS: Urine Hyaline Cast 0-2 /LPF (0-2)
--- NOTE | 2025-01-04 15:34 | CON.GI ---
Addendum entered and electronically signed by Marbella Garcia MD 01/04/25 19:36:
I saw and examined the patient.
The DIETETIC TECHNICIAN's note was reviewed and I agree with the note.
--Decompensated cirrhosis secondary to PANDEY with ascites s/p paracentesis with removal of 3350 cc today . Fluid negative for SBP. High SAAG low protein ascites. MELD -Na 14 ( 01/04)
-- DENICE
--History of colon polyps, not removed as patient was on Plavix at the time of colonoscopy 10/2023
plan
2 g sodium diet
Hold off on diuretics
Nephrology consultation reviewed-albumin/midodrine added
Monitor daily MELD labs/renal function
Patient currently follows with Dr. Holt at [facility]. No records available. Will recommend continue follow-up with her. Emphasize importance of compliance with treatment
Recommend follow-up with his current dental associate for repeat colonoscopy with polypectomy as outpatient
Original Note:
Consultation
-
Date/Time Consultation Requested: 01/04/25 1332
Date/Time Consultation Performed: 01/04/25 1534
Requesting Provider: Dr. Brandon
Performing Provider: Dr. Garcia/ZULMA Mcdonald
Reason for Consultation: ascites
Medical History
Chief Complaint / HPI
Chief Complaint: ascites
History of Present Illness:
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
post colonoscopy that showed colon polyps ->not removed 10/2023 as patient was taking Plavix, EGD 10/2023 with no varices, normal esophagus, erythema in gastric bilaterally and single duodenal polyp). Who follows with Dr. Langford as well as Dr. Steel
Zofia at [facility] (recent cardiac cath with Dr. Armijo 08/03/2024), hospitalized in September 2024 with pneumonia. Returned in October with orthostasis and hypovolemic shock requiring pressors and medication adjustment with the addition of
midodrine 3 times daily. 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 Paracentesis was performed on 12/13/2024 with 6 L removed. SAG consistent with portal hypertension. Protein not concerning for
congestive hepatopathy. Negative for SBP. The patient was started on Aldactone 100 mg daily. He was already on torsemide 40 mg twice daily. Lactulose 20 mg twice daily was added. The patient was also treated with doxycycline 100 mg p.o. twice
daily for 4 days for possible pneumonia. He was instructed to maintain a 2 g sodium diet and a 64 ounce fluid restriction. The patient is followed by Dr. Holt at [facility] gastroenterology and has an upcoming appointment next . The patient
ran out of his spironolactone 4 days prior to admission however continued to keep taking his torsemide. He followed up with his PCP and with accumulation of ascites in his abdomen, abdominal discomfort the patient was advised to proceed to the ER
for further evaluation. We are asked to evaluate for the same. The patient states that he follows a 64 ounce fluid restriction however he does not necessarily follow 2 g sodium diet. He states that he gave up things such as ham and chicken
however he does try to eat a lot of beef. He states he will not add salt to things. He does take his blood pressure twice a day and weigh himself daily. He did find that he lost weight since discharge. He did start taking the lactulose twice a
day and was having 4 bowel movements daily. The patient denies any fevers, chills, nausea, vomiting, melena, hematochezia, dysphagia or dyne aphasia. No early satiety. He did notice that his abdomen was getting larger. But he was losing muscle
mass in his arms and legs. He is having lower extremity edema. He had a paracentesis this morning yielding 3350 cc cloudy yellow ascitic fluid. Fluid analysis with WBC 461 and PMN 30.6. He is currently receiving albumin now at the direction of
nephrology. He is afebrile, WBC 8.8, hemoglobin 11.4, hematocrit 33.2, [id number], sodium 138, potassium 4.3, BUN 14, creatinine 1.8 (on discharge 12/15/2024 creatinine was 1.0), total bilirubin 1.1, AST 48, ALT 27, alk phos 193, albumin 2.8
Past Medical History
Past Medical History: CAD (with multiple vessel disease), COPD, HTN, Hypercholesterolemia, PR and Other (pilonidal cyst, pre DM, colon polyps, cirrhosis, cardiomyopathy, anemia )
Past Surgical History: Cardiac (CABG, prior stent ), Orthopedic (lami, right knee replacement ) and Other (excision of pilonidal cyst, hernia repair, SMA stent 10/2023)
Social History
Tobacco: Former Smoker (quit 2 -2 1/2 years ago)
Alcohol: Former (quit 4 months ago prior beer several per day)
Drug: None
Living: Other (roommate )
Employment: Not Employed
Family History
Family History: Other (no family hx colon CA or polyps )
Allergies / Home Medications
Allergy/AdvReac Type Severity Reaction Status Date / Time
No Known Allergies Allergy Verified 01/04/25 08:39
�Medication �Instructions �Recorded
aspirin 81 mg tablet,delayed 81 mg PO DAILY Blood Clot 11/22/20
release Prevention/Tx
pantoprazole 40 mg tablet,delayed 40 mg PO BID Gastrointestinal Issue 12/01/23
release
gabapentin 100 mg capsule 300 mg PO BID pain 09/01/24
potassium chloride 20 mEq 20 meq PO BID Electrolyte Repletion 09/01/24
tablet,extended release
magnesium oxide 400 mg PO DAILY Supplement 10/04/24
duloxetine 30 mg capsule,delayed 30 mg PO DAILY #0 caps 10/13/24
release
atorvastatin 80 mg tablet 80 mg PO DAILY High Cholesterol 12/13/24
ipratropium 0.5 mg-albuterol 3 mg 3 ml inhalation QID Lung/Breathing 12/13/24
(2.5 mg base)/3 mL nebulization Issues
soln
isosorbide mononitrate 30 mg 30 mg PO DAILY@1400 Heart 12/13/24
tablet,extended release 24 hr Disease/Condition
isosorbide mononitrate 60 mg 60 mg PO DAILY Heart 12/13/24
tablet,extended release 24 hr Disease/Condition
torsemide 20 mg tablet 40 mg PO BID Fluid 12/13/24
Retention/Swelling
lactulose 10 gram/15 mL oral 20 g (30 mL) PO BID 30 days #1,800 12/15/24
solution mL
spironolactone 50 mg tablet 100 mg (2 x 50 mg) PO DAILY #30 12/15/24
tabs
midodrine 5 mg tablet 15 mg PO TID 01/04/25
nitroglycerin 0.4 mg sublingual 0.4 mg sublingual [id number] PRN 01/04/25
tablet chest pain
Review of Systems
-
All other systems: A 12 pt ROS was Negative except as stated above in HPI
Vital Signs
Temp Pulse Resp BP Pulse Ox
98.1 F 78 24 96/67 98
01/04/25 11:34 01/04/25 15:15 01/04/25 15:15 01/04/25 15:00 01/04/25 15:15
Physical Exam
Exam
General: No Apparent Distress
HEENT: Anicteric
Respiratory: Clear (anteriot)
Cardiac: Regular Rhythm
GI: Soft, Non Tender, Non Distended and Normal Bowel Sounds
Musculoskeletal: Edema (+1 edema)
Skin: Warm and Dry
Neuro: AO x 3
Psych: Calm and Other (No asterixis)
Results
WBC 8.8 10^3/uL (4.8-10.8) 01/04/25 09:43
Hgb 11.4 g/dL (13.0-18.0) L 01/04/25 09:43
Hct 33.2 % (39.0-52.0) L 01/04/25 09:43
MCV 95.4 fL (80.0-94.0) H 01/04/25 09:43
Plt Count 153 10^3/uL (130-400) 01/04/25 09:43
Absolute Neuts (auto) 7.0 10^3/uL (1.4-6.5) H 01/04/25 09:43
PT 15.1 Sec (11.4-14.6) H 01/04/25 09:43
INR 1.14 01/04/25 09:43
APTT 35.3 Sec (23.4-35.0) H 01/04/25 09:43
Sodium 138 mmol/L (135-145) 01/04/25 09:43
Potassium 4.3 mmol/L (3.5-5.1) 01/04/25 09:43
Chloride 105 mmol/L (98-107) 01/04/25 09:43
Carbon Dioxide 27 mmol/L (22-30) 01/04/25 09:43
BUN 14 mg/dl (9-20) 01/04/25 09:43
Creatinine 1.8 mg/dL (0.7-1.3) H 01/04/25 09:43
Calcium 8.8 mg/dl (8.4-10.2) 01/04/25 09:43
Total Bilirubin 1.1 mg/dl (0.2-1.3) 01/04/25 09:43
AST 48 U/L (17-59) 01/04/25 09:43
ALT 27 U/L (0-50) 01/04/25 09:43
Alkaline Phosphatase 193 U/L (38-126) H 01/04/25 09:43
Diagnostic Image Results:
Paracentesis 01/04/2025:FINDINGS: 3350 cc of cloudy yellow ascitic fluid was evacuated. Samples sent for analysis as requested.
Renal ultrasound:No sonographic evidence for hydronephrosi
Chest x-ray:No acute cardiopulmonary process.
Prior GI Procedures:
Patient states he had upper endoscopy at [facility] in August 2024. Records unavailable to us
EGD: EGD: 10/2023- [facility] Normal esophagus.
- Erythematous mucosa in the gastric body. Biopsied.
- A single duodenal polyp. Resected and retrieved.
Colonoscopy: 10/2023 [facility] - Preparation of the colon was fair.
- Hemorrhoids found on perianal exam.
- Stool in the transverse colon, in the ascending
colon and in the cecum.
- Multiple 5 to 15 mm polyps in the sigmoid colon, in
the transverse colon, in the ascending colon and in
the cecum.
- Internal hemorrhoids.
- No specimens collected.
Assessment / Plan
-
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
post colonoscopy that showed colon polyps ->not removed 10/2023 as patient was taking Plavix, EGD 10/2023 with no varices, normal esophagus, erythema in gastric bilaterally and single duodenal polyp). Who follows with Dr. Langford as well as Dr. Steel
Zofia at [facility] (recent cardiac cath with Dr. Armijo 08/03/2024), hospitalized in September 2024 with pneumonia. Returned in October with orthostasis and hypovolemic shock requiring pressors and medication adjustment with the addition of
midodrine 3 times daily. 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 Paracentesis was performed on 12/13/2024 with 6 L removed. SAG consistent with portal hypertension. Protein not concerning for
congestive hepatopathy. Negative for SBP. The patient was started on Aldactone 100 mg daily. He was already on torsemide 40 mg twice daily. Lactulose 20 mg twice daily was added. The patient was also treated with doxycycline 100 mg p.o. twice
daily for 4 days for possible pneumonia. He was instructed to maintain a 2 g sodium diet and a 64 ounce fluid restriction. The patient is followed by Dr. Holt at [facility] gastroenterology and has an upcoming appointment next . The patient
ran out of his spironolactone 4 days prior to admission however continued to keep taking his torsemide. He followed up with his PCP and with accumulation of ascites in his abdomen, abdominal discomfort the patient was advised to proceed to the ER
for further evaluation. We are asked to evaluate for the same.
Impression:
Decompensated PANDEY cirrhosis with ascites
--Status post paracentesis 3350 cc fluid removed
DENICE
History of colon polyps, not removed as patient was on Plavix at the time of colonoscopy
Plan:
- Patient already received paracentesis. Albumin as per nephrology.
-Trend renal function
- Midodrine added by renal.
- Diuretics on hold.
-Lactulose currently on hold however on MiraLAX.
- Would consider adding lactulose however at half the dose as patient was having 4 bowel movements daily. We can wait until renal function rebounds.
- Discussed with patient importance of 2 g sodium diet
- Patient has follow-up appoint with Dr. Holt (gastroenterology at [facility]) on 01/12/2025
- Trend daily weights
- Okay per GI for diet, would check with renal to see if they have any restrictions.
-
-
Thank you for consultation and allowing me to participate in the patient's care. Please call the transportation planning engineer GI physician during the after hours with any questions or concerns.
[2025-01-04] MEDS: LOVENOX 40 MG SC (17:17)
[2025-01-04] MEDS: ProAmatine 15 MG PO (17:18)
[2025-01-04 19:02] LABS: Iron 71 ug/dl (49-181)
[2025-01-04 19:11] LABS: Percent Saturation 29 % (20-50); Total Iron Binding Capacity 243 ug/dl (261-462)
--- NOTE | 2025-01-04 21:00 | TRANSFER ---
pt arrived from ED via stretcher accompanied by ED staff. pt was a stand and pivot from stretcher to bed with a cane. VSS, pt AAOx3, call morales within reach. will continue to monitor.
[2025-01-04] MEDS: PROTONIX IV 40 MG IV (22:30)
[2025-01-04] MEDS: NSS (PRESERVATIVE FREE) 10 ML IV (22:31)
[2025-01-04] MEDS: DUPHALAC/CHRONULAC 20 GRAMS PO (22:31)
[2025-01-05 01:13] VITALS: BP 95/54
[2025-01-05 03:07] VITALS: BP 95/58
[2025-01-05 03:10] VITALS: BP 100/58
[2025-01-05 06:00] VITALS: BMI 25.3
[2025-01-05 06:51] LABS: Ammonia 34 umol/L (9-30)
[2025-01-05 06:54] LABS: Urine Albumin 2+ (Neg - Trace); Urine Bilirubin Negative (Negative); Urine Character Clear (Clear); Urine Color Yellow; Urine Glucose Negative (Negative); Urine Ketone Negative (Negative); Urine Leukocyte Negative (Negative); Urine Nitrite Negative (Negative); Urine Occult Blood 1+ (Negative); Urine Urobilinogen Negative (Neg - 1+)
[2025-01-05 06:55] LABS: % Basophils 0.7 % (0-2); % Eosinophils 1.3 % (0-6); % Immature Granulocytes 0.2 % (0-0.5); % Monocytes 9.1 % (1.7-9.3); % Neutrophils 74.7 % (42.2-75.2); Absolute Basophils 0.1 10^3/uL (0-0.2); Absolute Eosinophils 0.1 10^3/uL (0-0.7); Absolute Lymphocytes 1.2 10^3/uL (1.2-3.4); Absolute Monocytes 0.8 10^3/uL (0.1-0.6); Absolute Neutrophils 6.2 10^3/uL (1.4-6.5); Hematocrit 29.1 % (39.0-52.0); Mean Corp Hgb Conc. 34.4 g/dL (33.0-37.0); Mean Corpuscular Hgb 32.9 pg (27.0-31.0); Mean Corpuscular Volume 95.7 fL (80.0-94.0); Mean Platelet Volume 10.7 fL (7.4-10.4); Nucleated Red Blood Cells % 0 % (-); Platelet Count 139 10^3/uL (130-400); Red Blood Cell Count 3.04 10^6/uL (4.70-6.10); White Blood Cell Count 8.3 10^3/uL (4.8-10.8)
[2025-01-05 06:56] LABS: INR 1.23
[2025-01-05 06:57] LABS: APTT 38.8 Sec (23.4-35.0)
[2025-01-05 07:03] LABS: ALT (SGPT) 21 U/L (0-50); AST (SGOT) 40 U/L (17-59); Albumin 2.6 g/dl (3.5-5.0); Alkaline Phosphatase 162 U/L (38-126); Amylase 74 U/L (30-110); Blood Urea Nitrogen 10 mg/dl (9-20); Calcium 8.4 mg/dl (8.4-10.2); Carbon Dioxide 24 mmol/L (22-30); Chloride 109 mmol/L (98-107); Estimated Creatinine Clearance 54 ml/min; Glucose 83 mg/dl (70-99); Iron 64 ug/dl (49-181); Potassium 3.4 mmol/L (3.5-5.1); Sodium 139 mmol/L (135-145); Total Bilirubin 1.4 mg/dl (0.2-1.3); Total Protein 5.5 g/dl (6.3-8.2); eGFR 59.84
[2025-01-05 07:12] LABS: Urine Bacteria Few (Negative); Urine Red Blood Cell 0-2 /HPF (0-2)
[2025-01-05 07:45] VITALS: BP 114/58
[2025-01-05 07:51] LABS: Hepatitis C Antibody Negative (Negative)
[2025-01-05 07:54] LABS: Urine Sodium 85 mmol/L (30-90)
[2025-01-05] MEDS: ProAmatine 15 MG PO ×2 (07:57→12:13)
[2025-01-05] MEDS: PROTONIX IV 40 MG IV (07:57)
[2025-01-05] MEDS: NSS (PRESERVATIVE FREE) 10 ML IV (07:57)
[2025-01-05] MEDS: DUPHALAC/CHRONULAC 20 GRAMS PO (08:00)
[2025-01-05] MEDS: KCL 270 MEQ IV (08:34)
--- NOTE | 2025-01-05 10:21 | W.PN.HOSP.TC ---
Addendum entered and electronically signed by Viridiana Wynn MD 01/05/25 11:30:
I saw and evaluated the patient. I reviewed the resident�s note and agree with findings and plan as documented in the resident�s note.
A/P:
# Recurrent Ascites secondary to decompensated cirrhosis:
# Recent para 3 weeks BUGGY OPERATOR drained 6000 cc of fluid
Paracentesis performed on DOA which drained 3350 cc of fluid
SAAG was more than 1.1, protein was less than 2.5 indicating cirrhosis
ascitic fluid negative for SBP
Cont BUGGY OPERATOR lactulose
Appreciate GI input
# Prerenal DENICE, possible Hepatorenal Syndrome
Creatinine 1.8 -> 1.3; from baseline 1.0
Renal ultrasound unrevealing: negative for hydronephrosis
Cont albumin, midodrine per renal
hold spironolactone
Trend BMP outpt
# Unspecified anemia, possible due to liver failure
# GERD
Continue pantoprazole 40 mg BID
DVT ppc- lovenox SQ
full code
total DC time 40min
Original Note:
Today's Communication/Plan
-
- Follow-up with nephrology and GI
- Fluid restriction, 2 g sodium diet, trend daily weights, ins and outs
Assessment / Plan
Assessment / Plan
Ascites secondary to decompensated cirrhosis:
- Paracentesis was performed which drained 3350 cc of liquid, he also had fluid drained 3 weeks ago which yielded 6000 cc of fluid
- SAAG was more than 1.1, protein was less than 2.5 indicating cirrhosis
- Polymorphonuclear leucocyte count less than 250 ruling out SBP
- Patient has former history of drinking and quit only 4 months ago
- GI following
- Continue lactulose
- Check CBC CMP LFTs ammonia in AM
- Trend daily weight
- Continue on 2 g sodium diet
Prerenal DENICE
Heaptorenal Syndrome?:
- Creatinine was 1.3 trending down from 1.8, baseline is 1.0
- Suspect this to be secondary to cirrhosis, portal hypertension
- Renal ultrasound negative for any hydronephrosis
- Nephrology is following
- Continue to monitor kidney function and when near baseline restart spironolactone and diuretics
- Continue albumin
- Continue midodrine
- Trend BMP
Anemia of chronic disease:
- Hgb is 10, yesterday was 11.4
- B12 and folate pending,
-Iron is normal and TIBC is decreased
- Most likely due to chronic inflammation with liver cirrhosis
GERD:
- Continue pantoprazole 40 mg BID
DVT ppc- lovenox
full code
Anticipated Discharge: 24 - 48 hours
Subjective/Interval History
-
Date of Service: January 05, 2025
Patient has no acute complaints.
Objective Data
-
Labs:
Laboratory Results
01/05/25
06:32
WBC 8.3
Hgb 10.0 L
Hct 29.1 L
Plt Count 139
PT 16.0 H
INR 1.23
APTT 38.8 H
Sodium 139
Potassium 3.4 L
Chloride 109 H
Carbon Dioxide 24
BUN 10
Creatinine 1.3
Glucose 83
Calcium 8.4
Total Bilirubin 1.4 H
AST 40
ALT 21
Alkaline Phosphatase 162 H
Vital Signs:
Vital Signs
Temp Pulse Resp BP Pulse Ox
98.2 F 72 20 114/58 98
01/05/25 07:45 01/05/25 07:57 01/05/25 07:45 01/05/25 07:57 01/05/25 07:45
I&O
01/04/25 01/05/25 01/06/25
06:59 06:59 06:59
Intake Total 0 / 0 480 / 480
Output Total 750 / 750 300 / 300
Balance -750 / -750 180 / 180
Review of Systems
-
History Source: Patient
All other systems: Reviewed and negative
Physical Exam
-
General: No Apparent Distress
HEENT: Normocephalic and Atraumatic
Respiratory: Rhonchi; Negative Wheezes
Cardiac: Regular Rhythm and S1/S2
GI: Soft and Tender (Mild generalized diffuse tenderness)
Genito-urinary: No Costovertebral Tender
Musculoskeletal: No Edema
Skin: Warm and Dry
Neuro: AO x 3
Hematologic / Lymphatic: No Lymphadenopathy
Psych: Calm
Data Reviewed
-
Labs: Labs Reviewed by me and Discussed with Physician
--- NOTE | 2025-01-05 10:34 | W.PN.NEPH.PH ---
Today's Communication / Plan
-
BMP/okay for discharge from renal standpoint
Assessment/Plan
-
69-year-old male presents emergency department as advised by his primary care doctor. He saw his PCP yesterday, noted that he ran out of his spironolactone approximately 3 days ago. He notes abdominal distention despite a paracentesis just 3 weeks
ago. He follows the [facility] hepatology. He has no significant alcohol history. Unknown etiology of his liver disease per patient.
Consult for acute kidney injury with a creatinine of 1.6 normal baseline
Other history includes CAD, COPD (Ex-smoker), HTN, Hypercholesterolemia and Other (Ascites, cirrhosis)
Impression.
Acute kidney injury.
Liver cirrhosis.
CHF status post CABG 1998.
Plan.
Status post paracentesis 01/04 3.3 L.
Agree with volume expansion status post paracentesis.
Sodium restrict
Hold spironolactone for now
Add albumin
Add midodrine
Creatinine normalized
A.m. labs
-
-
Date of Service: January 05, 2025
CC / HPI / ROS
-
Chief Complaint:
Presents with increasing ascites
History of Present Illness:
Abdominal distention DENICE status post paracentesis
Review of Systems:
No chest pain or shortness of breath
Labs
-
Labs:
WBC 8.3 10^3/uL (4.8-10.8) 01/05/25 06:32
RBC 3.04 10^6/uL (4.70-6.10) L 01/05/25 06:32
Hgb 10.0 g/dL (13.0-18.0) L 01/05/25 06:32
Hct 29.1 % (39.0-52.0) L 01/05/25 06:32
Plt Count 139 10^3/uL (130-400) 01/05/25 06:32
Sodium 139 mmol/L (135-145) 01/05/25 06:32
Potassium 3.4 mmol/L (3.5-5.1) L 01/05/25 06:32
Chloride 109 mmol/L (98-107) H 01/05/25 06:32
Carbon Dioxide 24 mmol/L (22-30) 01/05/25 06:32
BUN 10 mg/dl (9-20) 01/05/25 06:32
Creatinine 1.3 mg/dL (0.7-1.3) 01/05/25 06:32
eGFR 59.84 01/05/25 06:32
Glucose 83 mg/dl (70-99) 01/05/25 06:32
Calcium 8.4 mg/dl (8.4-10.2) 01/05/25 06:32
Albumin 2.6 g/dl (3.5-5.0) L 01/05/25 06:32
Physical Exam
-
Vital Signs:
Vital Signs
Temp Pulse Resp BP Pulse Ox
98.2 F 72 20 114/58 98
01/05/25 07:45 01/05/25 07:57 01/05/25 07:45 01/05/25 07:57 01/05/25 07:45
Respiratory:: Bilateral: CTA
Lung Excursion:: Normal
Abdomen:: Soft
Bowel Sounds:: Normal
Extremity Edema:: None: Bilateral:
[2025-01-05] MEDS: DUONEB 3 ML INH (11:22)
[2025-01-05 11:46] VITALS: BP 96/60
--- NOTE | 2025-01-05 13:52 | CM ---
Patient will d/c today, d/c order placed. Patient seen bedside, initial assessment completed. Patient is a 69-year-old, with a past medical history of Zambrano cirrhosis, ascites, hypertension, COPD, CAD. He was at his PCP's office for refill of
spirinolactone and presented to the ED from there.
Patient reports that he resides w/ his partner, Yolis, who was recently diagnosed w/ colon cancer. Patient and Yolis reside in a 2ST[place]- 2 steps to enter. Patient uses a cane to ambulate, patient has a RW in the home but does not use it. Patient
is independent w/ ADLs. Patient was at [facility] in the past, patient is current w/ [facility] and would like to resume services at d/c.
Address, point of contact and insurance verified
PCP: Ev Collins
Pharmacy: [facility]
Patient aware of d/c today and is agreeable. Patient drove self to hospital and feels comfortable driving home
IMM verbally reviewed, patient given copy, copy placed on chart
Plan: Home; no needs
--- NOTE | 2025-01-05 14:51 | W.PN.GI.CBS2 ---
Today's Communication / Plan
-
Follow-up with his outpatient GI
Assessment / Plan
-
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
post colonoscopy that showed colon polyps ->not removed 10/2023 as patient was taking Plavix, EGD 10/2023 with no varices, normal esophagus, erythema in gastric bilaterally and single duodenal polyp). Who follows with Dr. Langford as well as Dr. Steel
Zofia at [facility] (recent cardiac cath with Dr. Armijo 08/03/2024), hospitalized in September 2024 with pneumonia. Returned in October with orthostasis and hypovolemic shock requiring pressors and medication adjustment with the addition of
midodrine 3 times daily. 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 Paracentesis was performed on 12/13/2024 with 6 L removed. SAG consistent with portal hypertension. Protein not concerning for
congestive hepatopathy. Negative for SBP. The patient was started on Aldactone 100 mg daily. He was already on torsemide 40 mg twice daily. Lactulose 20 mg twice daily was added. The patient was also treated with doxycycline 100 mg p.o. twice
daily for 4 days for possible pneumonia. He was instructed to maintain a 2 g sodium diet and a 64 ounce fluid restriction. The patient is followed by Dr. Holt at [facility] gastroenterology and has an upcoming appointment next . The patient
ran out of his spironolactone 4 days prior to admission however continued to keep taking his torsemide. He followed up with his PCP and with accumulation of ascites in his abdomen, abdominal discomfort the patient was advised to proceed to the ER
for further evaluation. We are asked to evaluate for the same.
--Decompensated cirrhosis secondary to PANDEY with ascites s/p paracentesis with removal of 3350 cc today . Fluid negative for SBP. High SAAG low protein ascites. MELD -Na 14 ( 01/04)
-- DENICE
--History of colon polyps, not removed as patient was on Plavix at the time of colonoscopy 10/2023
plan
A.m. labs improvement of serum creatinine ( 1.8--1.3 ) . Restarting diuretics as per nephrology recommendation
2 g sodium diet
Nephrology consultation reviewed-albumin/midodrine added
Monitor daily MELD labs/renal function
Patient currently follows with Dr. Holt at [facility]. No records available. Will recommend continue follow-up with her ( has follow up 01/12) . Emphasize importance of compliance with treatment
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
GI will s/o. Call us back if any questions
Total Time Spent with Patient (in minutes): 35
Subjective
Subjective
Date of Service: January 05, 2025
Denies any abdominal pain/nausea/vomiting
Objective
Data Reviewed
Laboratory Data:
Laboratory Results
01/05/25 06:32
01/05/25 06:32
Laboratory Results
PT 16.0 Sec (11.4-14.6) H 01/05/25 06:32
INR 1.23 01/05/25 06:32
APTT 38.8 Sec (23.4-35.0) H 01/05/25 06:32
Magnesium 2.0 mg/dl (1.6-2.3) 01/05/25 06:32
Total Bilirubin 1.4 mg/dl (0.2-1.3) H 01/05/25 06:32
AST 40 U/L (17-59) 01/05/25 06:32
ALT 21 U/L (0-50) 01/05/25 06:32
Alkaline Phosphatase 162 U/L (38-126) H 01/05/25 06:32
Amylase 74 U/L (30-110) 01/05/25 06:32
Vital Signs and I&O:
Vital Signs
Temp Pulse Resp BP Pulse Ox
98.7 F 70 18 96/60 97
01/05/25 11:46 01/05/25 12:13 01/05/25 11:46 01/05/25 12:13 01/05/25 11:46
I&O
01/04/25 01/05/25 01/06/25
06:59 06:59 06:59
Intake Total 0 / 0 720 / 720
Output Total 750 / 750 300 / 300
Balance -750 / -750 420 / 420
Physical Exam
Physical Exam
GI: Soft, Distended (Mildly distended) and Non Tender
[2025-01-05 16:14] LABS: Folate 6.8 ng/ml (2.76-20); Vitamin B12 818 pg/ml (239-931)
--- NOTE | 2025-01-05 16:53 | W.DCSUMMARY ---
Documented by User: Aleksandr Matamoros MD, Resident 01/05/25 18:19
Discharge Summary
Discharge Data
Date of Admission: 01/04/25
Date of Discharge: 01/05/25
-
Pending Results: No
Hospital Course
Discharging Physician : Dr. Viridiana Wynn and Dr. Aleksandr Matamoros
Disposition : Home
Principal Discharge diagnosis : Recurrent ascites secondary to decompensated Cirrhosis, Pre-renal DENICE
Chronic Discharge diagnosis : GERD, unspecified anemia
Hospital Course : Patient is a 69 year old male with a past medical history of CAD, COPD, HTN, HLD, decompensated cirrhosis who was sent to ED from PCP office after complaining of severe abdominal pain, abdominal distention, and shortness of
breath. Recently had a paracentesis 3 weeks ago where they drained 6000cc of fluid. Follows Dr. Holt at [facility] hepatology.
Problem #1: Recurrent ascites secondary to decompensated cirrhosis---paracentesis drained 3350 cc of fluid. Fluid studies showed a WBC of 461, fluid mononuclear cells 69.4, fluid polymorphonuclear cells 30.6, total protein less than 2, albumin less
than 1, LDH 114, amylase 56. SAAG score is more than 1.1 with total protein less than 2.5g/dl indicating decompensated cirrhosis with portal hypertension. PMN less than 250 so ruled out SBP. Chest x-ray shows no cardiopulmonary process.
Gastroenterology was consulted. Started on albumin, midodrine, 2 g sodium diet, fluid restriction. On discharge, patient is hemodynamically stable, afebrile, creatinine improving, tolerating oral intake, and functionally stable. Spironolactone is
held during stay until creatinine level is rechecked on repeat BMP in 1 week with PCP and home dose Torsemide (held during stay) restarted on discharge. Follow up with Dr. Holt outpatient.
Problem #2: Pre-renal DENICE- --Creatinine is 1.8 on admission, on discharge 1.3. Baseline is 1.0. Renal u/s negative for hydronephrosis. Nephrology consulted. Sodium and fluid restricted. Spironolactone and diuretics held until patient does repeat
bmp in 1 week with PCP.
Problem #3: ---Hgb is 11.4 g/dl on admission and 10 g/dl on discharge. Folate and b12 normal. Iron is 64 , TIBC is 243, and ferritin is 143. This suggests either an a anemia of chronic disease or early iron deficiency anemia. Recheck CBC in 1 week
with PCP.
Problem #3: GERD--- continue pantoprazole 40 mg bid.
Important imaging findings :
Chest x-ray 01/04/25:
-IMPRESSION:
No acute cardiopulmonary process.
Renal ultrasound 01/04/2025:
-IMPRESSION:
No sonographic evidence for hydronephrosis.
Procedure findings :
Paracentesis 01/04/2025:
-3350 cc of cloudy yellow ascitic fluid was evacuated.
Discharge Plan
-
Patient Disposition: Home (Routine Discharge)
Discharge Diagnosis/Procedures: Recurrent ascites secondary to decompensated cirrhosis, prerenal DENICE, possible hepatorenal syndrome, anemia of chronic disease, GERD
Condition: Fair
Diet: 2 Gram Sodium
Activity: As tolerated
Driving Restrictions: Not until seen by your Dr
Bathing Restrictions: None
Blood Work: CBC in 1 week with PCP
CMP in 1 week with PCP
Activity Restrictions/Additional Instructions:
Please follow up with Dr. Holt at [facility] within 1-2 weeks.
Referrals:
Ev Collins MD [Family Provider] - in less than 1 week
Prescriptions:
Continued
pantoprazole 40 mg tablet,delayed release (DR/EC)
40 mg PO BID
gabapentin 100 mg Capsule
300 mg PO BID
potassium chloride 20 mEq Tablet Extended Release
20 meq PO BID
magnesium oxide 400 mg magnesium Tablet
400 mg PO DAILY
atorvastatin 80 mg tablet
80 mg PO DAILY
torsemide 20 mg tablet
40 mg PO BID
isosorbide mononitrate 30 mg Tablet Extended Release 24 Hr
30 mg PO DAILY@1400
isosorbide mononitrate 60 mg Tablet Extended Release 24 Hr
60 mg PO DAILY
ipratropium-albuterol 0.5 mg-3 mg(2.5 mg base)/3 mL solution for nebulization
3 ml inhalation QID
lactulose 10 gram/15 mL Solution
20 g PO BID 30 Days Qty: 1800 0RF
midodrine 5 mg tablet
15 mg PO TID
nitroglycerin 0.4 mg tablet, sublingual
0.4 mg sublingual [id number] PRN (Reason: chest pain)
aspirin 81 MG tablet,delayed release (DR/EC)
81 mg PO DAILY Qty: 30 0RF
duloxetine 30 mg Capsule,Delayed Release(Dr/Ec)
30 mg PO DAILY Qty: 0 0RF
Held
spironolactone 50 mg Tablet
100 mg PO DAILY Qty: 30 0RF
Hold Instructions: Resume on 01/12/25. Repeat BMP 1 week with PCP before starting
Discharge Orders:
Discharge Patient (As Directed); Ordered 01/05/25
Ordered By: Aleksandr Matamoros
Discharge Date and Time
Discharge Date/Time: 01/05/25 15:13
Print Language: SETSWANA

Documented by User: Viridiana Wynn MD 01/06/25 12:37
Discharge Summary
Discharge Data
Date of Admission: 01/04/25
Date of Discharge: 01/06/25
Hospital Course
Discharging Physician : Dr. Viridiana Wynn and Dr. Aleksandr Matamoros
Disposition : Home
Principal Discharge diagnosis : Recurrent ascites secondary to decompensated Cirrhosis, Pre-renal DENICE/hepatorenal syndrome
Chronic Discharge diagnosis : GERD, unspecified anemia, CAD, COPD, HTN, HLD, decompensated cirrhosis
Hospital Course : Patient is a 69 year old male with past medical history as stated above, who was sent to ED from PCP office for abdominal pain, abdominal distention, and shortness of breath. He had recent (first) paracentesis 3 weeks ago where
6000cc of fluid was drained. He follows with Dr. Holt at [facility] hepatology.
Problem #1: Recurrent ascites secondary to decompensated cirrhosis: He underwent paracentesis this admission which drained 3350 cc of fluid. Fluid studies was negative for SBP, confirmed portal hypertension.
GI was consulted and recommended outpatient follow-up.
Problem #2: Pre-renal DENICE/likely hepatorenal syndrome: Creatinine at 1.8 on admission, improved to 1.3 on discharge (Baseline 1.0). His Renal u/s was negative for hydronephrosis. Nephrology was consulted. He received albumin and midodrine for
hepatorenal syndrome. His [employer]PER[employer]OR Spironolactone and Torsemide were held which he can resume following discharge per renal. He can check BMP in 1 week with his PCP.
Important imaging findings :
Chest x-ray 01/04/25:
-IMPRESSION:
No acute cardiopulmonary process.
Renal ultrasound 01/04/2025:
-IMPRESSION:
No sonographic evidence for hydronephrosis.
Procedure findings :
Paracentesis 01/04/2025:
-3350 cc of cloudy yellow ascitic fluid was evacuated.
Discharge Plan
-
Patient Disposition: Home (Routine Discharge)
Discharge Diagnosis/Procedures: Recurrent ascites secondary to decompensated cirrhosis, prerenal DENICE, possible hepatorenal syndrome, anemia of chronic disease, GERD
Condition: Fair
Diet: 2 Gram Sodium
Activity: As tolerated
Driving Restrictions: Not until seen by your Dr
Bathing Restrictions: None
Blood Work: CBC in 1 week with PCP
CMP in 1 week with PCP
Activity Restrictions/Additional Instructions:
Please follow up with Dr. Holt at [facility] within 1-2 weeks.
Referrals:
Ev Collins MD [Family Provider] - in less than 1 week
Prescriptions:
Continued
pantoprazole 40 mg tablet,delayed release (DR/EC)
40 mg PO BID
gabapentin 100 mg Capsule
300 mg PO BID
potassium chloride 20 mEq Tablet Extended Release
20 meq PO BID
magnesium oxide 400 mg magnesium Tablet
400 mg PO DAILY
atorvastatin 80 mg tablet
80 mg PO DAILY
torsemide 20 mg tablet
40 mg PO BID
isosorbide mononitrate 30 mg Tablet Extended Release 24 Hr
30 mg PO DAILY@1400
isosorbide mononitrate 60 mg Tablet Extended Release 24 Hr
60 mg PO DAILY
ipratropium-albuterol 0.5 mg-3 mg(2.5 mg base)/3 mL solution for nebulization
3 ml inhalation QID
lactulose 10 gram/15 mL Solution
20 g PO BID 30 Days Qty: 1800 0RF
midodrine 5 mg tablet
15 mg PO TID
nitroglycerin 0.4 mg tablet, sublingual
0.4 mg sublingual [id number] PRN (Reason: chest pain)
aspirin 81 MG tablet,delayed release (DR/EC)
81 mg PO DAILY Qty: 30 0RF
duloxetine 30 mg Capsule,Delayed Release(Dr/Ec)
30 mg PO DAILY Qty: 0 0RF
Held
spironolactone 50 mg Tablet
100 mg PO DAILY Qty: 30 0RF
Hold Instructions: Resume on 01/12/25. Repeat BMP 1 week with PCP before starting
Discharge Orders:
Discharge Patient (As Directed); Ordered 01/05/25
Ordered By: Aleksandr Matamoros
Discharge Date and Time
Discharge Date/Time: 01/05/25 15:13
Print Language: SETSWANA
== END 2025-01-05 15:13 | disposition home or self-care (01) | DRG 432 ==
LOC: 4 EAST ACU 13:18
PROVIDERS: Radiology Diagnostic Radiology; ADMITTING PHYSICIAN Internal Medicine; CONSULT PHYSICIAN Internal Medicine Gastroenterology; CONSULT PHYSICIAN Internal Medicine Nephrology; EMERGENCY PHYSICIAN Emergency Medicine; FAMILY PHYSICIAN Hospitalist
PROC: 0W9G3ZZ Drainage of Peritoneal Cavity, Percutaneous Approach (ICD-10-PCS; 2025-01-04)
DX: K74.60 Unspecified cirrhosis of liver (principal); K76.7 Hepatorenal syndrome; N17.9 Acute kidney failure, unspecified; R18.8 Other ascites; K76.6 Portal hypertension; Z87.891 Personal history of nicotine dependence; K21.9 Gastro-esophageal reflux disease without esophagitis; K75.81 Nonalcoholic steatohepatitis (NASH); D63.8 Anemia in other chronic diseases classified elsewhere; Z79.82 Long term (current) use of aspirin; Z79.899 Other long term (current) drug therapy; Z86.0100 Personal history of colon polyps, unspecified
CPT/HCPCS: 49083; 71046; 76775; 80053; 81003; 81015; 82042; 82140; 82150; 82607; 82728; 82746; 83540; 83550; 83605; 83615; 83735; 84157; 84300; 85025; 85610; 85730; 86803; 87015; 87040; 87070; 87205; 89051; 93005; 94640; 94760; 96361; 96365; 96366; 99285; P9047

== ENCOUNTER → 2025-01-24 07:07 | Outpatient (REF) | payer MEDICARE, SELFPAY ==
[2025-01-24 07:38] VITALS: BP 121/68; BP_SYST 75
[2025-01-24 09:08] VITALS: BP 114/69; BP_SYST 70
[2025-01-24 09:19] VITALS: BP 114/69
[2025-01-24 10:46] LABS: Body Fluid Mononuclear 75.3 %; Body Fluid Polymorphonuclear 24.7 %; Body Fluid WBC 654 /CUMM
[2025-01-24 13:20] LABS: Body Fluid Second Tech CMB
== END ==
LOC: RADI 07:07
PROVIDERS: ATTENDING PHYSICIAN Hospitalist
DX: R18.8 Other ascites (principal)
CPT/HCPCS: 49083; 89051

== ENCOUNTER → 2025-02-03 12:26 | Outpatient (REF) | payer MEDICARE, SELFPAY | LOC: RAD 12:26 | PROVIDERS: ATTENDING PHYSICIAN Hospitalist | DX: R10.11 Right upper quadrant pain (principal) | CPT/HCPCS: 74177; Q9967 ==

== ENCOUNTER → 2025-02-06 07:42 | Outpatient (REF) | payer MEDICARE, SELFPAY ==
[2025-02-06 09:03] LABS: % Basophils 0.1 % (0-2); % Immature Granulocytes 0.5 % (0-0.5); % Lymphocytes 6.9 % (20.5-51.1); % Monocytes 6.9 % (1.7-9.3); % Neutrophils 85.6 % (42.2-75.2); Absolute Immature Granulocytes 0.1 10^3/uL (0-0.05); Absolute Lymphocytes 1.1 10^3/uL (1.2-3.4); Absolute Monocytes 1.1 10^3/uL (0.1-0.6); Absolute Neutrophils 13.3 10^3/uL (1.4-6.5); Hematocrit 38.3 % (39.0-52.0); Mean Corp Hgb Conc. 33.9 g/dL (33.0-37.0); Mean Corpuscular Hgb 32.6 pg (27.0-31.0); Mean Platelet Volume 10.9 fL (7.4-10.4); Nucleated Red Blood Cells % 0 % (-); Platelet Count 150 10^3/uL (130-400); Red Blood Cell Count 3.99 10^6/uL (4.70-6.10); Red Cell Dist. Width 14.7 % (11.5-14.5); White Blood Cell Count 15.5 10^3/uL (4.8-10.8)
[2025-02-06 09:30] LABS: ALT (SGPT) 35 U/L (0-50); AST (SGOT) 36 U/L (17-59); Albumin 3.4 g/dl (3.5-5.0); Alkaline Phosphatase 174 U/L (38-126); Blood Urea Nitrogen 20 mg/dl (9-20); Calcium 8.9 mg/dl (8.4-10.2); Carbon Dioxide 24 mmol/L (22-30); Chloride 111 mmol/L (98-107); Glucose 104 mg/dl (70-99); Potassium 4.2 mmol/L (3.5-5.1); Sodium 139 mmol/L (135-145); Total Bilirubin 1.1 mg/dl (0.2-1.3); Total Protein 6.8 g/dl (6.3-8.2)
== END ==
LOC: REG 07:42
PROVIDERS: ATTENDING PHYSICIAN Hospitalist
DX: R10.11 Right upper quadrant pain (principal)
CPT/HCPCS: 36415; 76700; 80053; 85025

== ENCOUNTER 2025-02-06 16:41 | Inpatient (IN) | payer MEDICARE, SELFPAY ==
[2025-02-06 12:15] VITALS: BP 152/85
--- NOTE | 2025-02-06 14:37 | ED.GENMED ---
History of Present Illness
General
Chief Complaint: Abdominal Pain
Source: patient
Exam Limitations: none
Time Seen by Provider: 02/06/25 14:18
Nursing documentation reviewed up to this point in time: agreed with
History of Present Illness
History of Present Illness:
Patient is a 69-year-old male with history CAD, CHF, hypertension, hyperlipidemia, cholelithiasis who presents to the emergency department with intractable upper abdominal pain and vomiting for the past 5 days. Patient states upper abdominal pain
started last Thursday after dinner and has been relatively constant since. Pain is located upper abdomen/right upper quadrant. He denies any radiation into his back. He also reports nausea and intermittent vomiting.
Patient denies any known fever although states he has been very chilly.
Patient states that he has known gallstones. He has had 6 episodes since September of similar pain although it has always resolved.
Patient was seen by primary care for symptoms where she ordered an abdominal CT on which showed cholecystitis without other acute abnormality. She sent for ultrasound of the ab today which showed again cholelithiasis although with
gallbladder wall thickening as well.
Patient does not take any blood thinners.
Past History
Past History
ED Past Medical History: CAD, COPD (Ex-smoker), HTN, Hypercholesterolemia and Other (Ascites, cirrhosis)
ED Past Surgical History: Cardiac (According to PCP notes, patient had LHC 10/2022, attempted wiring of the LAD (75% mid LAD and 90% apical LAD stenosis), aborted secondary to severe tortuosity and bleeding of the SIFUENTES graft, on medical therapy.,
Echo o 11/2023 with LV EF of 65 to 70% mild to moderate aortic regurg. ), Orthopedic and Other (Hernia repair. Refractory angina on Renexa)
Social History
Tobacco: Former smoker
Alcohol: Former (Has not drank for 4 months)
Drug: None
Personal: Single
Living: other (With former partner)
Employment: Retired
Review of Systems
Review of Systems
Allergies reviewed?: Yes
All Other Systems: ROS reviewed and negative except as documented in HPI and ROS
Phy Exam
Physical Exam
Physical Exam:
Vitals: Hypertensive, otherwise vitals signs stable. Afebrile
General: Patient is mildly uncomfortable due to pain
Skin: Warm and dry, no rashes or lesions
Head: Normocephalic, atraumatic
Eyes: Sclera nonicteric. EOMs intact. No nystagmus.
Throat: Protecting airway
Neck: Normal ROM, no cervical spine tenderness, no meningismus
Cardiac: Regular rate and rhythm, no murmurs.
Pulm: Normal respiratory effort, no wheezes, rales, rhonchi heard on exam
.
Abdomen: Abdomen soft. Moderate tenderness in epigastric region/ RUQ. Positive Mcfarland sign.
Extremities: No evidence of cyanosis or edema
Neuro: AAOx3. Grossly intact
Psychiatric: Normal affect.
Course
Orders/Labs/Results
Orders:
Orders
02/06/25 14:35
0.9% Sodium Chloride 1000 ml [Nss] 1,000 ml IV BOLUS
HYDROmorphone [Dilaudid] 0.5 mg IV NOW STA
Piperacillin/Tazo 3.375 Gram [Zosyn] 3.375 gram in 50 ml IV NOW
02/06/25 14:38
Electrocardiogram (*1) Urgent
Reason for Study: Abdominal Pain
EKG- Treatment ONCE
02/06/25 14:48
Lactic Acid Q4H
Comment: CANCEL 2nd LACTIC ACID IF 1st LACTIC ACID IS LESS THAN 2
Lipase Urgent
Blood Culture Q30M
HANNY Source: Blood/Venous
Specimen Description:
Blood Culture Q30M
HANNY Source: Blood/Venous
Specimen Description:
02/06/25 15:25
Consult Surgery [SURGICAL CONSULT] Urgent
Consulting Provider: Steve Fonseca
Was physician already notified: Yes
02/06/25 15:44
Diphenhydramine [Benadryl] 25 mg IV NOW STA
02/06/25 15:48
Famotidine [Pepcid] 20 mg .ROUTE .STK-MED ONE
02/06/25 15:53
Famotidine [Pepcid] 20 mg IV NOW STA
02/06/25 16:01
HYDROmorphone [Dilaudid] 0.5 mg IV NOW STA
02/06/25 16:12
Admit/Transfer Patient As Directed
Co-Sign Provider:
Level of Care: Inpatient admission
Assign to:: Medical/Surgical
Physician / Group: [facility]
Diagnosis: acute cholecystitis
Reason for Hospitalization: acute cholecystitis
Expected length of stay greater than two midnights?: Yes
ELOS- Estimated Length of Stay in days: 3
I certify the patient meets the requirements for IP care: Yes
PRN Pain Medication Management As Directed
May give lesser potent ordered pain med per pt: Yes
preference::
Protocol:: Medication orders for pain may be administered in a
manner that supports deferring to patient preference
when the pt is:
- Requesting an ordered lesser potent pain medication.
Least to most potent pain medications are defined
as: acetaminophen < NSAID < tramadol < opioids
(morphine, oxycodone, hydromorphone).
- Requesting a lesser dose of the same medication IF
ORDERED.
- Requesting a less intrusive route of administration
if both routes are prescribed by the provider (PO <
IV).
02/06/25 16:13
Code Status As Directed
Resuscitation Status: Full Code
02/06/25 18:39
Acetaminophen [Tylenol] 650 mg PO Q4HPRN PRN
Bisacodyl [Dulcolax] 10 mg RECTAL [id number] PRN
Docusate W/Senna [Senokot-S] 1 tablet PO BIDPRN PRN
HYDROmorphone [Dilaudid] 0.5 mg IV Q4HPRN PRN
Polyethylene Glycol Powder [Miralax] 17 grams PO DAILYPRN PRN
Trimethobenzamide [Tigan] 200 mg IM Q6HPRN PRN
02/06/25 18:39
Activity As Directed
Activity Level: As Tolerated
Vital Signs As Directed
Frequency: Per unit guidelines
DX Deep Vein Thrombosis Video Routine
02/06/25 20:00
Gabapentin [Neurontin] 300 mg PO BID
Heparin 5,000 units SC Q12
Ipratropium/Albuterol Sulfate [Duoneb] 3 ml INH R QID
Pantoprazole [Protonix] 40 mg PO BID
Piperacillin/Tazo 3.375 Gram [Zosyn] 3.375 gram in 50 ml IV Q6H
Potassium Chloride [KCl] 20 meq PO BID
Torsemide [Demadex] 40 mg PO BID AT 0800,1600
02/06/25 22:00
Famotidine [Pepcid] 20 mg IV HS
Lactulose [Duphalac/Chronulac] 20 grams PO TID
02/07/25 Breakfast
NPO
Allow oral meds: Yes
Allow clear liquids: No
02/07/25 06:03
Complete Blood Count/No Diff IN AM
Lipase IN AM
02/07/25 08:00
Aspirin Low Dose EC [Aspir Low (Enteric Coated)] 81 mg PO DAILY
Atorvastatin [Lipitor] 80 mg PO DAILY
Duloxetine Delayed Release [Cymbalta Delayed Release] 30 mg PO DAILY
ISOSORBIDE MONOnitrate ER [Imdur (Extended Release)] 60 mg PO DAILY
Magnesium l-Lactate [Mag-Tab Sr] 84 mg PO DAILY
Midodrine [ProAmatine] 5 mg PO TID @ 0800,1200,1700
Spironolactone [Aldactone] 100 mg PO DAILY
02/07/25 14:00
ISOSORBIDE MONOnitrate ER [Imdur (Extended Release)] 30 mg PO DAILY@1400
02/08/25 06:00
Basic Metabolic Panel IN AM
Complete Blood Count/No Diff IN AM
02/09/25 06:00
Basic Metabolic Panel IN AM
Complete Blood Count/No Diff IN AM
02/10/25 06:00
Basic Metabolic Panel IN AM
Complete Blood Count/No Diff IN AM
Abnormal Lab Results
02/06/25
14:48
Lipase 355 H U/L
(23-300)
Vital Signs
Initial and Last Documented VS:
Initial Vital Signs
Temp Pulse Resp BP Pulse Ox
97.9 F 75 16 152/85 100
02/06/25 12:15 02/06/25 12:15 02/06/25 12:15 02/06/25 12:15 02/06/25 12:15
Last Documented Vital Signs
Temp Pulse Resp BP Pulse Ox
97.5 F 81 18 130/64 98
02/07/25 07:30 02/07/25 11:32 02/07/25 11:32 02/07/25 07:30 02/07/25 11:32
MDM/Problems Addressed
Differential Diagnosis Includes:
Not limited to: acute cholecystitis, cholangitis, acute pancreatitis, bacteremia, etc
MDM/Problems Addressed:
69 year-old male with history as documented presenting with six days of intractable upper abdominal pain associated with nausea and vomiting. No fevers. He has known history of gallstones with six bouts of billary colic since September 2024. Vitals
and physical exam as above.
Patient had lab work obtained this morning outpatient significant for leukocytosis. LFTs and bilirubin normal. Abdominal ultrasound outpatient shows cholelithiasis with thickening of gallbladder wall.
Presentation consistent with acute cholecystitis. Will check lipase, lactic, send blood cultures.
Patient given IV fluids, and zosyn in an emergency department. General surgery consulted.
Given multiple comorbidities and chronic health conditions - patient will be admitted to hospitalist service with general surgery consult.
Chronic conditions affecting care:
Cholelithiasis
Acute Exacerbation and/or Progression of Chronic Illness:
Acute cholecystitis
*Pulse Oximetry
Patient hypoxic: no
*EKG
Interpreted by ED Provider?: Yes
EKG Intrepretation Date: 02/06/25
Interpretation: abnormal
Comparison EKG: changes noted
Heart Rate: 75
Rate: normal
Rhythm: sinus
Bozman: normal axis
Interval: long QT
QRS Pattern: normal QRS
Ischemia: no ischemia
*High Risk Case Manager Interpretation
Rate: High Risk Case Manager- N/A
*Critical Care Note
Total Time (30-74mins, 75-104mins- exclusive of procedures): Not Applicable
Patient Management
Discussion with other providers: Hospitalist and Tapper Helper (Case discussed w/ general surgery)
Escalation/DeEscalation of care consider admission/obs:
Admit to hospitalist on IV abx or general surgery consult
ED Attending Note
-
Portions of this chart may have been created with voice recognition software.� Occasional wrong word or��sound alike� substitutions may have occurred due to the inherent limitations of voice recognition software.
Discharge Plan
Departure
Patient Disposition: Admit
Date of Disposition: 02/06/25
Time of Disposition: 15:47
Presentation/result/management discussed w/ accepting MD/DO: Hospitalist
Discharge Problem:
Acute cholecystitis
Interventions
Interventions:
*Risk Screen - Suicide Last Done: 02/06/25 12:16
*General Assessment Last Done: 02/06/25 15:01
*Neglect/Abuse Screening Last Done: 02/06/25 12:16
*ED- Fall Risk Assessment Last Done: 02/06/25 15:01
*ED COVID-19 Vaccine History Last Done: 02/06/25 15:01
*Nursing Disposition Last Done: 02/06/25 18:32
ER-Wsfewc-Kklgnuqerv Assessment Last Done: 02/06/25 15:01
Discharge Date and Time
Discharge Date/Time: 02/06/25 18:33
[2025-02-06] MEDS: ZOSYN 50 IV ×2 (14:51→20:47)
[2025-02-06] MEDS: DILAUDID 0.5 MG IV ×4 (14:51→20:40)
[2025-02-06] MEDS: NSS 1000 IV (14:51)
[2025-02-06 15:23] LABS: Lactic Acid 1.4 mmol/L (0.7-2.0)
[2025-02-06 15:42] LABS: Lipase 355 U/L (23-300)
[2025-02-06] MEDS: BENADRYL 25 MG IV (15:51)
[2025-02-06] MEDS: PEPCID 20 MG IV (15:53)
--- NOTE | 2025-02-06 15:53 | HPS.HSE ---
Family Physician
-
Family Physician: Ev Collins MD
Chief Complaint
-
epigastric abdominal pain
History of Present Illness
69-year-old male with history CAD, CHF, hypertension, hyperlipidemia, cholelithiasis who presents to the emergency department with intractable upper abdominal pain and vomiting since Thursday. patient lost 12lbs in ten days. he stated poor
appetite. stated chills. denied fever, VINES,dizzy or syncope.denied dysuria or hematuria.
Patient was seen by primary care for symptoms where she ordered an abdominal CT on which showed cholecystitis without other acute abnormality. She sent for ultrasound of the ab today which showed again cholelithiasis although with
gallbladder wall thickening as well.
Patient received Benadryl, Pepcid, Dilaudid, normal saline, Zosyn in ER. Blood culture sent from ER. Admitted for further eval
Medical History
Past Medical History
Past Medical History: Reports Other
Additional Past Medical History:
Hypertension, hyperlipidemia, coronary artery disease, NC,
Past Surgical History: Reports Other
Additional Past Surgical History:
Coronary artery bypass graft, cardiac stent,, limited, right knee, excision of below distal, SMA stent
Social History
Tobacco: Former Smoker
Alcohol: Former
Drug: None
Family History
Family History: Not pertinent
Allergies / Home Medications
Allergies reflects when Allergies were last updated in [facility].
Home Medications with original date entered in [facility]
Allergy/Medication List:
Allergies
Allergy/AdvReac Type Severity Reaction Status Date / Time
No Known Allergies Allergy Verified 01/24/25 07:48
Home Medications
pantoprazole 40 mg tablet,delayed release 40 mg PO BID Gastrointestinal Issue 12/01/23
gabapentin 100 mg capsule 300 mg PO BID pain 09/01/24
potassium chloride 20 mEq tablet,extended release 20 meq PO BID Electrolyte Repletion 09/01/24
magnesium oxide 400 mg PO DAILY Supplement 10/04/24
atorvastatin 80 mg tablet 80 mg PO DAILY High Cholesterol 12/13/24
ipratropium 0.5 mg-albuterol 3 mg (2.5 mg base)/3 mL nebulization soln 3 ml inhalation R QID Lung/Breathing Issues 12/13/24
isosorbide mononitrate 30 mg tablet,extended release 24 hr 30 mg PO DAILY@1400 Heart Disease/Condition 12/13/24
isosorbide mononitrate 60 mg tablet,extended release 24 hr 60 mg PO DAILY Heart Disease/Condition 12/13/24
torsemide 20 mg tablet 40 mg PO BID Fluid Retention/Swelling 12/13/24
midodrine 5 mg tablet 5 mg PO TID Ascites 01/04/25
nitroglycerin 0.4 mg sublingual tablet 0.4 mg sublingual [id number] PRN chest pain 01/04/25
aspirin 81 mg tablet,delayed release 81 mg PO DAILY Blood Clot Prevention/Tx #30 tabs 01/05/25
duloxetine 30 mg capsule,delayed release 30 mg PO DAILY Pain #0 caps 01/05/25
lactulose 10 gram/15 mL oral solution 20 g PO TID 02/06/25
ondansetron 4 mg disintegrating tablet 4 mg PO [id number] PRN nausea 02/06/25
spironolactone 50 mg tablet 100 mg PO DAILY 02/06/25
Review of Systems
-
Constitutional: Reports No Symptoms
EENT: Reports No Symptoms
Respiratory: Reports No Symptoms
Cardiac: Reports No Symptoms
Abdomen/GI: Reports Abdominal Pain, Nausea and Vomiting
: Reports No Symptoms
Musculoskeletal: Reports No Symptoms
Skin: Reports No Symptoms
Neurological: Reports No Symptoms
Endocrine: Reports No Symptoms
Hematologic/Lymphatic: Reports No Symptoms
Psych: Reports No Symptoms
Physical Exam
Vital Signs
Vital Signs
Temp Pulse Resp BP Pulse Ox
97.9 F 75 16 152/85 100
02/06/25 12:15 02/06/25 12:15 02/06/25 12:15 02/06/25 12:15 02/06/25 12:15
Physical Exam
General: Well Developed, Well Nourished and No Apparent Distress
HEENT: NormoCephalic, Moist mucous membranes and Atraumatic
Respiratory: Clear
Cardiac: S1/S2 and Regular Rhythm; No Murmur or Rub
GI: Soft, Non Distended, Normal Bowel Sounds and Tender; No Organomegaly
Rectal: Deferred by Provider
Musculoskeletal: No Clubbing, No Cyanosis and No Edema
Skin: No Rash
Neuro: AO x 3 and Nonfocal/grossly intact
Psych: Calm
Laboratory Results
-
Laboratory Results
Lactic Acid 1.4 mmol/L (0.7-2.0) 02/06/25 14:48
Lipase 355 U/L (23-300) H 02/06/25 14:48
Data Reviewed
-
CT Scan: Report Reviewed by me
Ultrasound: Report Reviewed by me
Impression/Plan
-
# Acute cholecystitis
-WBCs 15.5, lipase 355
- IV Zosyn continued
- Keep patient n.p.o.
- Fluids continued for hydration
-Zofran as needed for nausea
-Dilaudid as needed for pain
- General Surgery consult
- CT abdomen pelvis with impression Likely hepatic cirrhotic morphology.Contracted gallbladder with stones which may be postprandial as there is large volume fluid material filling the stomach.. Consider Abdominal ultrasound for more complete
evaluation, if clinically warranted.Minimal ascites.4 cm simple right renal cyst.Markedly limited evaluation of large bowel due to majority lack of oral contrast opacification. No intestinal obstruction or free air.Cannot exclude small hiatal hernia.
-abdominal US with Cholelithiasis.Gallbladder wall thickening is probably reactive but recommend clinical correlation for acute cholecystitis.Hepatic cirrhosis.Mild splenomegaly.Mild abdominal ascites.
# Acute kidney injury likely dehydration
- Creatinine 1.5
- BMP in a.m.
- Patient received fluids in ED
#ascites/cirrhosis
# History of paracentesis 2 weeks ago
- Spironolactone and torsemide continued
# Orthostatic hypotension
- Midodrine continue
#History of NC, coronary artery disease status pos CABG
# Cardiac stent
- Aspirin continued
# Hyperlipidemia
-Statin continued
# Depression/anxiety
-Duloxetine continued
# History of COPD
-He is not in acute exacerbation
-Nebulizer continued
#Essential hypertension
- Isosorbide continued
# GERD
-Continue pantoprazole 40 mg BID
DVT ppc
- Heparin subcu
full code
--- NOTE | 2025-02-06 16:24 | W.PN.UPDATE ---
Update Note
Progress Note Update
This is an addendum to H&P written by Fany Johnson on 02/06/2025.� Patient seen and examined independently with EXTENSION CLERK.
69-year-old male past medical history of alcoholic cirrhosis, cholelithiasis, cardiomyopathy, CAD status post CABG, diastolic heart failure, multiple stents, chronic anemia,, hypertension, hyperlipidemia, anxiety/depression, COPD, prior alcohol use
presenting with intractable upper abdominal pain and vomiting for 5 days.� Pain in right upper quadrant.� No fevers or chills.
Vital signs normal.� Labs show leukocytosis.� Lipase of 355.� CT abdomen pelvis from 3 days ago shows contracted gallbladder with stones.� Minimal ascites.� Abdominal ultrasound today shows cholelithiasis, gallbladder wall thickening, mild splenic
bleed, cirrhosis.� Mild ascites.
Presentation consistent with acute cholecystitis.� N.p.o., IV fluids given, no further fluids,�blood cultures, Zosyn.� General surgery consulted.
--- NOTE | 2025-02-06 16:55 | CON.GS ---
Addendum entered and electronically signed by Steve Fonseca MD 02/06/25 18:23:
I saw and examined the patient independently.
The Clinical Data Programmer's note was reviewed and I agree with the note, assessment and plan except where noted below.
Comment: This is a 69-year-old male with a significant cardiac history as well as known cirrhosis managed with paracenteses as well as an SMA stent for SMA stenosis who presents with acute on chronic right upper quadrant pain. He underwent a CT
scan recently which demonstrated a contracted gallbladder filled with stones. He is tender to palpation on exam and has a leukocytosis to 15,000.
Explained to the patient that these are typically very challenging procedures and there is a high risk for conversion to open and other complications including chronic drainage given his ascites. Percutaneous cholecystostomy tube with unlikely
provide much relief and would be technically challenging to place in this contracted gallbladder.
Will plan for surgery tentatively tomorrow.
N.p.o. at midnight, IV fluids, IV antibiotics.
Surgery will follow
Original Note:
Consultation
-
Date/Time Consultation Performed: 02/06/25 1420
Medical History
-
Chief Complaint: RUQ pain
History of Present Illness:
Mr Mejia is a 69 yo male with a h/o PANDEY/Cirrhosis s/p recent admission 1 month ago, ischemic CM, CAD s/p CABG at age 37, SMA stent 10/2023, left IHR x2, HTN who presents with 5 days of RUQ pain radiating into his mid back with N/V. Yesterday he
developed chills. He notes the pain has been pretty constant causing him to follow with his PCP. Outpatient CT with contracted gallbladder around stones but without evidence of acute cholecystitis. Follow up outpatient US today with findings
concerning for acute cholecystitis with noted leukocytosis on lab work which prompted his PCP to send him to the ER for evaluation. He notes about 6 short episodes of similar pain over the past 15 months but usually short in duration. He passed one
pale stool but otherwise denies acholic stools. He has generalized pruritus. He reports that he has slept very little over the past few days as his pain has gradually increased.
Past Medical History
Past Medical History: CAD, CHF (HFpEF, ICM), GERD, HTN, Hypercholesterolemia and Other (PANDEY/Cirrhosis follows at [facility], recent paracentesis x3 over the past month)
Past Surgical History: Cardiac (CABG at age 37), Hernia Repair (Left IHR x2 (mesh on second repair)) and Other (SMA stent 10/2023)
Social History
Tobacco: Former Smoker
Alcohol: Former (daily beer drinker until 08/2024)
Living: With Roomate (lives with ex girlfriend)
Employment: Retired ([employer])
Family History
Family History: Reviewed & Not Pertinent
Allergies / Home Medications
Allergy/AdvReac Type Severity Reaction Status Date / Time
No Known Allergies Allergy Verified 01/24/25 07:48
�Medication �Instructions �Recorded �Confirmed �Type
pantoprazole 40 mg tablet,delayed 40 mg PO BID Gastrointestinal Issue 12/01/23 02/06/25 History
release
gabapentin 100 mg capsule 300 mg PO BID pain 09/01/24 02/06/25 History
potassium chloride 20 mEq 20 meq PO BID Electrolyte Repletion 09/01/24 02/06/25 History
tablet,extended release
magnesium oxide 400 mg PO DAILY Supplement 10/04/24 02/06/25 History
atorvastatin 80 mg tablet 80 mg PO DAILY High Cholesterol 12/13/24 02/06/25 History
ipratropium 0.5 mg-albuterol 3 mg 3 ml inhalation R QID 12/13/24 02/06/25 History
(2.5 mg base)/3 mL nebulization Lung/Breathing Issues
soln
isosorbide mononitrate 30 mg 30 mg PO DAILY@1400 Heart 12/13/24 02/06/25 History
tablet,extended release 24 hr Disease/Condition
isosorbide mononitrate 60 mg 60 mg PO DAILY Heart 12/13/24 02/06/25 History
tablet,extended release 24 hr Disease/Condition
torsemide 20 mg tablet 40 mg PO BID Fluid 12/13/24 02/06/25 History
Retention/Swelling
midodrine 5 mg tablet 5 mg PO TID Ascites 01/04/25 02/06/25 History
nitroglycerin 0.4 mg sublingual 0.4 mg sublingual [id number] PRN 01/04/25 02/06/25 History
tablet chest pain
aspirin 81 mg tablet,delayed 81 mg PO DAILY Blood Clot 01/05/25 02/06/25 Rx
release Prevention/Tx #30 tabs
duloxetine 30 mg capsule,delayed 30 mg PO DAILY Pain #0 caps 01/05/25 02/06/25 Rx
release
lactulose 10 gram/15 mL oral 20 g PO TID 02/06/25 02/06/25 History
solution
ondansetron 4 mg disintegrating 4 mg PO Q6HPRN PRN nausea 02/06/25 02/06/25 History
tablet
spironolactone 50 mg tablet 100 mg PO DAILY 02/06/25 02/06/25 History
Review of Systems
-
History Source: Patient
All other systems: Negative unless noted
A 10 point review of systems was completed, and was negative except as per HPI.
Physical Exam
Vital Signs
Temp Pulse Resp BP Pulse Ox
97.9 F 75 16 152/85 100
02/06/25 12:15 02/06/25 12:15 02/06/25 12:15 02/06/25 12:15 02/06/25 12:15
Physical Exam
General: Pain; Negative Comfortable
HEENT: Normocephalic and Moist Mucous Membranes
Respiratory: Non Labored Respirations
GI: Soft, Non Distended and Tender (severe to RUQ)
Skin: Other (pruritis ); Negative Rash or Jaundice
Neuro: Awake, Alert and AO x 3
Psych: Calm
Data Reviewed
-
CT Scan: Image Personally Visualized and interpreted, Report Reviewed by me, Discussed with Physician and Discussed with Patient
Ultrasound: Image Personally Visualized and interpreted, Report Reviewed by me, Discussed with Physician and Discussed with Patient
Labs: Labs Reviewed by me, Discussed with Physician and Discussed with Patient
Old Records: Reviewed
Assessment / Plan
-
Mr Mejia is a 69 yo male with a h/o PANDEY/Cirrhosis s/p recent admission 1 month ago, ischemic CM, CAD s/p CABG at age 37, SMA stent 10/2023, left IHR x2, HTN with biliary colic over the last year who presents with 5 days of RUQ pain radiating into
his mid back with N/V and chills. CT on 02/03 with contracted gallbladder around stones but without evidence of acute cholecystitis. Follow up US today with findings concerning for acute cholecystitis with noted leukocytosis on lab work. LFT's
within range. Leukocytosis to 15.2. Mildly elevated lipase. No thrombocytopenia. Afebrile, stable vital sings.
Reviewed treatment/management of ACC with patient.
Will plan for laparoscopic cholecystectomy tomorrow.
--Keep NPO
--IVF as per primary team
--C/W IV zosyn
--Labs in AM
--Analgesics/Antiemetics prn
Medical management as per primary team
[2025-02-06 17:00] VITALS: BP 150/78
[2025-02-06 18:00] VITALS: BP 139/71
[2025-02-06 18:44] VITALS: BP 120/64
[2025-02-06 19:40] VITALS: BMI 24.5
[2025-02-06] MEDS: PROTONIX 40 MG PO (20:41)
[2025-02-06] MEDS: NEURONTIN 300 MG PO (20:41)
[2025-02-06] MEDS: KCL 20 MEQ PO (20:41)
[2025-02-06] MEDS: HEPARIN 5000 UNITS SC (20:42)
[2025-02-06] MEDS: DEMADEX 40 MG PO (20:42)
[2025-02-06] MEDS: DUONEB 3 ML INH (21:02)
[2025-02-06] MEDS: DUPHALAC/CHRONULAC PO (23:00)
[2025-02-06 23:04] VITALS: BMI 24.5
[2025-02-06 23:06] VITALS: BP 122/77
[2025-02-07] VITALS (13 sets, daily range): BP systolic 92–130; BP diastolic 53–77; BMI 24.2
[2025-02-07] MEDS: DILAUDID 0.5 MG IV ×3 (03:00→19:43)
[2025-02-07] MEDS: ZOSYN 50 IV ×3 (03:00→19:38)
[2025-02-07 07:12] LABS: Hematocrit 36.6 % (39.0-52.0); Hemoglobin 12.3 g/dL (13.0-18.0); Mean Corp Hgb Conc. 33.6 g/dL (33.0-37.0); Mean Corpuscular Hgb 32.5 pg (27.0-31.0); Mean Corpuscular Volume 96.6 fL (80.0-94.0); Mean Platelet Volume 11.1 fL (7.4-10.4); Platelet Count 107 10^3/uL (130-400); Red Blood Cell Count 3.79 10^6/uL (4.70-6.10); Red Cell Dist. Width 14.8 % (11.5-14.5); White Blood Cell Count 11.5 10^3/uL (4.8-10.8)
[2025-02-07 07:21] LABS: INR 1.19; PT 15.6 Sec (11.4-14.6)
[2025-02-07 07:59] LABS: ALT (SGPT) 29 U/L (0-50); AST (SGOT) 30 U/L (17-59); Albumin 3.1 g/dl (3.5-5.0); Alkaline Phosphatase 148 U/L (38-126); Blood Urea Nitrogen 21 mg/dl (9-20); Carbon Dioxide 23 mmol/L (22-30); Chloride 111 mmol/L (98-107); Direct Bilirubin 0.3 mg/dl (0.0-0.4); Estimated Creatinine Clearance 47 ml/min; Glucose 109 mg/dl (70-99); Lipase 142 U/L (23-300); Potassium 5.1 mmol/L (3.5-5.1); Sodium 139 mmol/L (135-145); Total Bilirubin 1.7 mg/dl (0.2-1.3); Total Protein 6.3 g/dl (6.3-8.2)
[2025-02-07] MEDS: ALDACTONE 100 MG PO (08:08)
[2025-02-07] MEDS: DUPHALAC/CHRONULAC 20 GRAMS PO (08:08)
[2025-02-07] MEDS: PROTONIX 40 MG PO ×2 (08:09→19:38)
[2025-02-07] MEDS: IMDUR (EXTENDED RELEASE) 60 MG PO (08:09)
[2025-02-07] MEDS: CYMBALTA DELAYED RELEASE 30 MG PO (08:09)
[2025-02-07] MEDS: NEURONTIN 300 MG PO ×2 (08:09→19:38)
[2025-02-07] MEDS: DEMADEX 40 MG PO ×2 (08:10→17:52)
[2025-02-07] MEDS: MAG-TAB SR 84 MG PO (08:10)
[2025-02-07] MEDS: ASPIR LOW (ENTERIC COATED) 81 MG PO (08:10)
[2025-02-07] MEDS: LIPITOR 80 MG PO (08:10)
[2025-02-07] MEDS: KCL 20 MEQ PO ×2 (08:10→19:38)
[2025-02-07] MEDS: ProAmatine 5 MG PO ×4 (08:10→21:03)
--- NOTE | 2025-02-07 08:11 | W.PN.GS2 ---
Today's Communication / Plan
-
-- Laparoscopic cholecystectomy possible cholangiogram
Assessment / Plan
-
Patient is a 69 yo M with cirrhosis p/w chronic cholecystitis
AVSS
Labs notable for a downtrending WBC, downtrending platelets, DENICE, and bilirubin elevation
Clinical history most consistent with chronic cholecystitis given the intermittent nature and association of his discomfort with oral intake. His CT scan and ultrasound demonstrate a small and shrunken gallbladder largely filled with stones. He
likely has a nonfunctional gallbladder that is obstructed both from emptying and filling. Options for management including medical management with antibiotics versus surgical management with cholecystectomy were considered and discussed. We
discussed that he is at increased risk for operative complications given his cirrhosis, chronic cholecystitis, and cardiac risk factors. Prior plans for cholecystectomy, patient would like to proceed with cholecystectomy.
Plan for a laparoscopic cholecystectomy with possible cholangiogram. The procedure itself, as well as the risks, benefits, and alternatives was discussed. Specifically, we discussed the risks of bleeding, infection, injury to surrounding
structures (bowel, bile ducts), CBD injury, need for subtotal cholecystectomy, anesthetic and cardiopulmonary complications, and worsening of his liver function during the immediate postoperative period. Using the [facility] calculator he has a
30-day mortality of 6.2%, a 90-day mortality of 11.1% and a risk of 90-day decompensation of 31%. Typical postprocedural recovery was discussed. All questions answered. Consent signed.
-- Laparoscopic cholecystectomy possible cholangiogram
-- NPO, IVF
-- Abx: Zosyn
Subjective Data
-
Date of Service: February 07, 2025
Patient reports continued RUQ abdominal discomfort, slightly worse from presentation. He reports intermittent attacks over the past several months; some of which have been associated with oral intake. He reports episodes of diarrhea and paler
stools with attacks of discomfort. He denies any tea colored urine or significant jaundice. Associated nausea, no episodes of vomiting. Associated chills, no fevers. He follows with a Modeler at [facility]. He follows with a Pediatric Nurse at
[facility]. He has had issues with decompensated liver failure over the past several months requiring paracenteses x 3, as recently as 01/24/2025.
Objective Data
-
Intake and Output
02/06/25 02/07/25 02/08/25
06:59 06:59 06:59
Other:
Number of approximated MODERATE 2
amounts of urine
Vital Signs
Temp Pulse Resp BP Pulse Ox
97.5 F 56 20 130/64 99
02/07/25 07:30 02/07/25 07:30 02/07/25 07:30 02/07/25 07:30 02/07/25 07:30
Lab Results
02/07/25 06:03
02/07/25 06:03
Calcium 9.0 mg/dl (8.4-10.2) 02/07/25 06:03
Total Bilirubin 1.7 mg/dl (0.2-1.3) H 02/07/25 06:03
Direct Bilirubin 0.3 mg/dl (0.0-0.4) 02/07/25 06:03
AST 30 U/L (17-59) 02/07/25 06:03
ALT 29 U/L (0-50) 02/07/25 06:03
Alkaline Phosphatase 148 U/L (38-126) H 02/07/25 06:03
Total Protein 6.3 g/dl (6.3-8.2) 02/07/25 06:03
Albumin 3.1 g/dl (3.5-5.0) L 02/07/25 06:03
Physical Exam
-
Gen: NAD
Abd: soft, tender to palpation in RUQ, mild distension, non-peritoneal
Patient has a cummings catheter: No
Patient has a central line: No
[2025-02-07] MEDS: HEPARIN 5000 UNITS SC (08:12)
[2025-02-07] MEDS: DUONEB 3 ML INH ×3 (08:16→19:22)
[2025-02-07] MEDS: TIGAN 200 MG IM (09:52)
[2025-02-07] MEDS: BENADRYL 6.25 MG IV (11:05)
--- NOTE | 2025-02-07 12:40 | W.PN.HOSP.TC ---
Today's Communication/Plan
-
Monitor vital signs
see plan
Plan for OR today by surgery
Hold Aldactone
Monitor volume status closely
Check UA
Assessment / Plan
Assessment / Plan
General: Well Developed, Well Nourished and No Apparent Distress
HEENT: NormoCephalic, Moist mucous membranes and Atraumatic
Respiratory: Clear
Cardiac: S1/S2 and Regular Rhythm; No Murmur or Rub
GI: Soft, Non Distended, Normal Bowel Sounds and Tender
Musculoskeletal: No Edema
Neuro: AO x 3 and Nonfocal/grossly intact
Psych: Calm
Acute cholecystitis
-WBCs 15.5, lipase 355
- IV Zosyn continued
NPO for joy
-antiemetics
-pain control
- General Surgery following
- CT abdomen pelvis with impression Likely hepatic cirrhotic morphology.Contracted gallbladder with stones which may be postprandial as there is large volume fluid material filling the stomach.. Consider Abdominal ultrasound for more complete
evaluation, if clinically warranted.Minimal ascites.4 cm simple right renal cyst.Markedly limited evaluation of large bowel due to majority lack of oral contrast opacification. No intestinal obstruction or free air.Cannot exclude small hiatal hernia.
-abdominal US with Cholelithiasis.Gallbladder wall thickening is probably reactive but recommend clinical correlation for acute cholecystitis.Hepatic cirrhosis.Mild splenomegaly.Mild abdominal ascites.
# Acute kidney injury likely dehydration
- Creatinine 1.5
check UA
monitor volume status closely
Hold Aldactone, if creatinine do not improve then will get nephrology evaluation
#ascites/cirrhosis
# History of paracentesis 2 weeks ago
- Continue torsemide for now
Hold Aldactone
# Orthostatic hypotension
- Midodrine continue
Thrombocytopenia likely secondary to cirrhosis
Monitor
#History of SD, coronary artery disease status pos CABG
# Cardiac stent
- Aspirin continued
# Hyperlipidemia
-Statin continued
# Depression/anxiety
-Duloxetine continued
# History of COPD
-He is not in acute exacerbation
-Nebulizer continued
#Essential hypertension
- Isosorbide continued
# GERD
-Continue pantoprazole 40 mg BID
DVT ppc
- Heparin subcu
full code
I spent a total of 52 minutes with the patient or on the floor. More than 50% of this time involved counseling and coordination of care.
Anticipated Discharge: > 48 hours
Subjective/Interval History
-
Date of Service: February 07, 2025
has nausea
Objective Data
-
Labs:
Laboratory Results
02/07/25
06:03
WBC 11.5 H
Hgb 12.3 L
Hct 36.6 L
Plt Count 107 L D
PT 15.6 H
INR 1.19
Sodium 139
Potassium 5.1
Chloride 111 H
Carbon Dioxide 23
BUN 21 H
Creatinine 1.5 H
Glucose 109 H
Calcium 9.0
Total Bilirubin 1.7 H
AST 30
ALT 29
Alkaline Phosphatase 148 H
Vital Signs:
Vital Signs
Temp Pulse Resp BP Pulse Ox
97.5 F 81 18 130/64 98
02/07/25 07:30 02/07/25 11:32 02/07/25 11:32 02/07/25 07:30 02/07/25 11:32
--- NOTE | 2025-02-07 15:03 | W.IMMPOSTOP ---
Surgical Immed Post Op Note
-
Primary Surgeon: Camelia
Assisting Surgeon: KARLO Easton
Pre-op Diagnosis: Symptomatic cholelithiasis
Post-op Diagnosis: Symptomatic cholelithiasis
Procedure Performed: Laparoscopic cholecystectomy with IOC
Anesthesia Type: General
Specimen / Cultures:
1. Gallbladder
Estimated Blood Loss: 151 cc
Complications: None
Operative Findings:
1. Mild wall thickening, largely normal appearing GB, cirrhosis with bleeding and fibrosis complicating procedure
2. Critical view of safety, IOC negative
3. Duct and artery taken with clips, venous branches around artery taken with clips
4. Hemostasis well maintained at conclusion of procedure, Surgicel used topically then removed
[2025-02-07] MEDS: DUONEB INH (15:25)
--- NOTE | 2025-02-07 15:59 | CM ---
Chart reviewed and patient was admitted with acute cholecystitis, patient lives with his significant other in a 2 story home, with 2 steps to enter, patient is independent with adl's and uses a cane with ambulation. Patient has a walker. Patient
drives.
PCP: vE Collins
Pharmacy: [facility] in [place].
[2025-02-07] MEDS: ZOSYN IV (16:01)
[2025-02-07] MEDS: DUPHALAC/CHRONULAC PO ×2 (16:52→21:03)
[2025-02-07] MEDS: IMDUR (EXTENDED RELEASE) 30 MG PO (17:52)
[2025-02-08] VITALS (8 sets, daily range): BP systolic 95–126; BP diastolic 60–72; PULSE 86–89; O2SAT 96; BMI 23.9
[2025-02-08] MEDS: DILAUDID 0.5 MG IV ×4 (00:40→19:19)
[2025-02-08 00:51] LABS: Urine Albumin 1+ (Neg - Trace); Urine Bilirubin Negative (Negative); Urine Character Clear (Clear); Urine Color Yellow; Urine Glucose Negative (Negative); Urine Ketone Negative (Negative); Urine Leukocyte Negative (Negative); Urine Nitrite Negative (Negative); Urine Occult Blood Negative (Negative); Urine Specific Gravity 1.025 (<1.030); Urine Urobilinogen Negative (Neg - 1+)
[2025-02-08] MEDS: ZOSYN 50 IV ×4 (01:01→19:15)
[2025-02-08 01:04] LABS: Urine Red Blood Cell None Seen /HPF (0-2)
--- NOTE | 2025-02-08 07:08 | W.PN.GS2 ---
Today's Communication / Plan
-
-- LFD
-- Pain control: Tramadol, IV Dilaudid PRN
-- Abx: none further needed from surgical perspective
-- Fluids per Hospitalist
-- OK for home meds
-- DVT: if Hb stable OK for SQH
-- Trend labs
Assessment / Plan
-
Patient is a 69 yo M with cirrhosis p/w symptomatic cholelithiasis
Afebrile, noted hypotension overnight (chronic issues), no tachycardia, good UOP
Labs pending
Labs pending, will follow. No concerns from a surgical standpoint. Need to monitor recovery of liver closely.
-- LFD
-- Pain control: Tramadol, IV Dilaudid PRN
-- Abx: none further needed from surgical perspective
-- Fluids per Hospitalist
-- OK for home meds
-- OOB/ambulate
-- DVT: if Hb stable OK for SQH
-- Trend labs
Subjective Data
-
Date of Service: February 08, 2025
Reports abdominal soreness and weak voice. Overall abdominal pain improved from pre-op. Slight lightheadedness. No nausea or emesis. No fevers.
Objective Data
-
Intake and Output
02/07/25 02/08/25 02/09/25
06:59 06:59 06:59
Intake Total 1400 / 1400
Output Total 1150 / 1150
Balance 250 / 250
Intake:
Oral fluids 1200 / 1200
IV fluids (Total) 150 / 150
Normosol 150 / 150
IV piggybacks 50 / 50
Output:
Urine, Voided 1150 / 1150
Other:
Number of approximated MODERATE 2
amounts of urine
Vital Signs
Temp Pulse Resp BP Pulse Ox
98.4 F 70 20 119/65 97
02/08/25 03:31 02/08/25 03:31 02/08/25 03:31 02/08/25 03:31 02/08/25 03:31
Calcium 9.0 mg/dl (8.4-10.2) 02/07/25 06:03
Total Bilirubin 1.7 mg/dl (0.2-1.3) H 02/07/25 06:03
Direct Bilirubin 0.3 mg/dl (0.0-0.4) 02/07/25 06:03
AST 30 U/L (17-59) 02/07/25 06:03
ALT 29 U/L (0-50) 02/07/25 06:03
Alkaline Phosphatase 148 U/L (38-126) H 02/07/25 06:03
Total Protein 6.3 g/dl (6.3-8.2) 02/07/25 06:03
Albumin 3.1 g/dl (3.5-5.0) L 02/07/25 06:03
Physical Exam
-
Gen: NAD
Abd: soft, tender to palpation, mild distension, non-peritoneal
Patient has a cummings catheter: No
Patient has a central line: No
[2025-02-08] MEDS: DUONEB 3 ML INH ×4 (07:55→20:04)
[2025-02-08 08:09] LABS: % Basophils 0.1 % (0-2); % Immature Granulocytes 0.7 % (0-0.5); % Lymphocytes 4.2 % (20.5-51.1); % Monocytes 7.3 % (1.7-9.3); % Neutrophils 87.7 % (42.2-75.2); Absolute Immature Granulocytes 0.1 10^3/uL (0-0.05); Absolute Lymphocytes 0.7 10^3/uL (1.2-3.4); Absolute Monocytes 1.2 10^3/uL (0.1-0.6); Absolute Neutrophils 14.8 10^3/uL (1.4-6.5); Hemoglobin 11.5 g/dL (13.0-18.0); Mean Corp Hgb Conc. 33.8 g/dL (33.0-37.0); Mean Corpuscular Volume 97.4 fL (80.0-94.0); Mean Platelet Volume 10.9 fL (7.4-10.4); Nucleated Red Blood Cells % 0 % (-); Platelet Count 110 10^3/uL (130-400); Red Blood Cell Count 3.49 10^6/uL (4.70-6.10); Red Cell Dist. Width 15.1 % (11.5-14.5); White Blood Cell Count 16.8 10^3/uL (4.8-10.8)
[2025-02-08] MEDS: CYMBALTA DELAYED RELEASE 30 MG PO (08:26)
[2025-02-08] MEDS: IMDUR (EXTENDED RELEASE) 60 MG PO (08:26)
[2025-02-08] MEDS: KCL 20 MEQ PO (08:26)
[2025-02-08] MEDS: ProAmatine 5 MG PO ×3 (08:26→16:56)
[2025-02-08] MEDS: LIPITOR 80 MG PO (08:26)
[2025-02-08] MEDS: DEMADEX 40 MG PO (08:27)
[2025-02-08] MEDS: MAG-TAB SR 84 MG PO (08:27)
[2025-02-08] MEDS: PROTONIX 40 MG PO ×2 (08:27→19:15)
[2025-02-08] MEDS: ASPIR LOW (ENTERIC COATED) 81 MG PO (08:27)
[2025-02-08] MEDS: NEURONTIN 300 MG PO ×2 (08:27→19:15)
[2025-02-08] MEDS: DUPHALAC/CHRONULAC PO ×3 (08:28→21:03)
[2025-02-08 08:48] LABS: ALT (SGPT) 38 U/L (0-50); AST (SGOT) 45 U/L (17-59); Albumin 2.9 g/dl (3.5-5.0); Alkaline Phosphatase 125 U/L (38-126); Blood Urea Nitrogen 34 mg/dl (9-20); Calcium 8.5 mg/dl (8.4-10.2); Carbon Dioxide 22 mmol/L (22-30); Chloride 111 mmol/L (98-107); Estimated Creatinine Clearance 42 ml/min; Glucose 135 mg/dl (70-99); Potassium 5.2 mmol/L (3.5-5.1); Sodium 137 mmol/L (135-145); Total Bilirubin 1.9 mg/dl (0.2-1.3); Total Protein 5.8 g/dl (6.3-8.2); eGFR 43.37
--- NOTE | 2025-02-08 13:58 | W.PN.HOSP.TC ---
Today's Communication/Plan
-
monitor vitals
see plan
diet per surgery
cw abx for now
PT
Hold torsemide, Aldactone, potassium supplement
Assessment / Plan
Assessment / Plan
General: Well Developed, Well Nourished and No Apparent Distress
HEENT: NormoCephalic, Moist mucous membranes and Atraumatic
Respiratory: Clear
Cardiac: S1/S2 and Regular Rhythm; No Murmur or Rub
GI: Soft, Non Distended, Normal Bowel Sounds and Tender
Musculoskeletal: No Edema
Neuro: AO x 3 and Nonfocal/grossly intact
Psych: Calm
Symptomatic cholelithiasis with possibility of cholecystitis
Continue antibiotics for now
Currently on liquid, diet per surgery
-antiemetics
-pain control
- General Surgery following
- CT abdomen pelvis with impression Likely hepatic cirrhotic morphology.Contracted gallbladder with stones which may be postprandial as there is large volume fluid material filling the stomach.. Consider Abdominal ultrasound for more complete
evaluation, if clinically warranted.Minimal ascites.4 cm simple right renal cyst.Markedly limited evaluation of large bowel due to majority lack of oral contrast opacification. No intestinal obstruction or free air.Cannot exclude small hiatal hernia.
-abdominal US with Cholelithiasis.Gallbladder wall thickening is probably reactive but recommend clinical correlation for acute cholecystitis.Hepatic cirrhosis.Mild splenomegaly.Mild abdominal ascites.
# Acute kidney injury likely dehydration
- Creatinine 1.7
UA without UTI
monitor volume status closely
Hold Aldactone, torsemide if creatinine do not improve then will get nephrology evaluation
#ascites/cirrhosis
# History of paracentesis 2 weeks ago
-hold torsemide for now
Hold Aldactone
# Orthostatic hypotension
- Midodrine continue
Mild hyperkalemia
Hold potassium supplement, monitor
Thrombocytopenia likely secondary to cirrhosis
Monitor
#History of [place], coronary artery disease status pos CABG
# Cardiac stent
- Aspirin continued
# Hyperlipidemia
-Statin continued
# Depression/anxiety
-Duloxetine continued
# History of COPD
-He is not in acute exacerbation
-Nebulizer continued
#Essential hypertension
- Isosorbide continued
# GERD
-Continue pantoprazole 40 mg BID
DVT ppc
- Heparin subcu
full code
Anticipated Discharge: Within 24 hours
Subjective/Interval History
-
Date of Service: February 08, 2025
Denies nausea
Objective Data
-
Labs:
Laboratory Results
02/08/25
07:47
WBC 16.8 H
Hgb 11.5 L
Hct 34.0 L
Plt Count 110 L
Sodium 137
Potassium 5.2 H
Chloride 111 H
Carbon Dioxide 22
BUN 34 H
Creatinine 1.7 H
Glucose 135 H
Calcium 8.5
Total Bilirubin 1.9 H
AST 45
ALT 38
Alkaline Phosphatase 125
Vital Signs:
Vital Signs
Temp Pulse Resp BP Pulse Ox
98.5 F 91 18 121/63 94
02/08/25 12:00 02/08/25 12:00 02/08/25 12:00 02/08/25 12:00 02/08/25 12:00
I&O
02/07/25 02/08/25 02/09/25
06:59 06:59 06:59
Intake Total 1400 / 1400
Output Total 1150 / 1150
Balance 250 / 250
[2025-02-08] MEDS: IMDUR (EXTENDED RELEASE) 30 MG PO (14:00)
--- NOTE | 2025-02-08 16:30 | CM ---
export sales manager spoke with patient today to review discharge plan, and physical therapy are recommending skilled placement skilled options reviewed with patient and patient is agreeable to [facility], referral sent to [facility]
Living.
Plan; Referral sent to [facility].
[2025-02-09] MEDS: ZOSYN 50 IV ×2 (02:14→09:22)
[2025-02-09] MEDS: DILAUDID 0.5 MG IV ×4 (02:15→23:00)
[2025-02-09 02:20] VITALS: BP 116/71
[2025-02-09] MEDS: DUONEB 3 ML INH ×4 (07:18→20:04)
[2025-02-09 07:30] VITALS: BP 121/78
[2025-02-09 08:42] LABS: % Basophils 0.1 % (0-2); % Immature Granulocytes 0.6 % (0-0.5); % Lymphocytes 5.7 % (20.5-51.1); % Monocytes 8.7 % (1.7-9.3); % Neutrophils 84.9 % (42.2-75.2); Absolute Immature Granulocytes 0.1 10^3/uL (0-0.05); Absolute Lymphocytes 0.8 10^3/uL (1.2-3.4); Absolute Monocytes 1.2 10^3/uL (0.1-0.6); Hematocrit 32.9 % (39.0-52.0); Hemoglobin 12.2 g/dL (13.0-18.0); Mean Corp Hgb Conc. 37.1 g/dL (33.0-37.0); Mean Corpuscular Volume 97.1 fL (80.0-94.0); Mean Platelet Volume 10.8 fL (7.4-10.4); Nucleated Red Blood Cells % 0 % (-); Platelet Count 106 10^3/uL (130-400); Red Blood Cell Count 3.39 10^6/uL (4.70-6.10); Red Cell Dist. Width 14.9 % (11.5-14.5); White Blood Cell Count 14.1 10^3/uL (4.8-10.8)
--- NOTE | 2025-02-09 09:14 | W.PN.GS2 ---
Today's Communication / Plan
-
-- No changes from surgical perspective
-- DC instructions updated
-- Will follow peripherally
Assessment / Plan
-
Patient is a 69 yo M with cirrhosis p/w symptomatic cholelithiasis
POD#2 s/p laparoscopic cholecystectomy with IOC
Afebrile, continued soft BP and hypotension overnight (chronic issues), no tachycardia, good UOP (though issues with urinary retention)
Labs with down trend in WBc, Hb stable, stable thrombocytopenia related to liver disease, CMP pending
No concerns from a surgical standpoint. Need to monitor recovery of liver closely.
-- LFD
-- Pain control: Tramadol, IV Dilaudid PRN
-- Abx: none further needed from surgical perspective
-- Fluids per Hospitalist
-- OK for home meds
-- OOB/ambulate
-- DVT: if Hb stable OK for SQH
-- Trend labs
-- DC instructions updated
-- Will follow peripherally
Subjective Data
-
Date of Service: February 09, 2025
Reports incisional and RIGHT lateral abdominal soreness. No fevers or chills. Tolerating a diet.
Objective Data
-
Intake and Output
02/08/25 02/09/25 02/10/25
06:59 06:59 06:59
Intake Total 1400 / 1400 890 / 890
Output Total 1150 / 1150 1090 / 1090
Balance 250 / 250 -200 / -200
Intake:
Oral fluids 1200 / 1200 840 / 840
IV fluids (Total) 150 / 150
Normosol 150 / 150
IV piggybacks 50 / 50 50 / 50
Output:
Urine, Voided 1150 / 1150 1090 / 1090
Other:
Number of approximated MODERATE 2
amounts of urine
Vital Signs
Temp Pulse Resp BP Pulse Ox
98.4 F 82 24 121/78 98
02/09/25 07:30 02/09/25 07:30 02/09/25 07:30 02/09/25 07:30 02/09/25 07:30
Lab Results
02/09/25 08:06
Calcium 8.5 mg/dl (8.4-10.2) 02/08/25 07:47
Total Bilirubin 1.9 mg/dl (0.2-1.3) H 02/08/25 07:47
Direct Bilirubin 0.3 mg/dl (0.0-0.4) 02/07/25 06:03
AST 45 U/L (17-59) 02/08/25 07:47
ALT 38 U/L (0-50) 02/08/25 07:47
Alkaline Phosphatase 125 U/L (38-126) 02/08/25 07:47
Total Protein 5.8 g/dl (6.3-8.2) L 02/08/25 07:47
Albumin 2.9 g/dl (3.5-5.0) L 02/08/25 07:47
Physical Exam
-
Unable to perform physical exam at this time, patient receiving nursing care.
[2025-02-09] MEDS: DUPHALAC/CHRONULAC 20 GRAMS PO ×3 (09:21→22:17)
[2025-02-09] MEDS: CYMBALTA DELAYED RELEASE 30 MG PO (09:21)
[2025-02-09] MEDS: IMDUR (EXTENDED RELEASE) 60 MG PO (09:22)
[2025-02-09] MEDS: MAG-TAB SR 84 MG PO (09:22)
[2025-02-09] MEDS: LIPITOR 80 MG PO (09:22)
[2025-02-09] MEDS: ProAmatine 5 MG PO ×3 (09:22→16:37)
[2025-02-09] MEDS: ASPIR LOW (ENTERIC COATED) 81 MG PO (09:22)
[2025-02-09] MEDS: PROTONIX 40 MG PO ×2 (09:22→19:22)
[2025-02-09] MEDS: NEURONTIN 300 MG PO ×2 (09:22→19:21)
[2025-02-09 09:32] VITALS: BMI 24.7
[2025-02-09 10:13] LABS: ALT (SGPT) 38 U/L (0-50); AST (SGOT) 37 U/L (17-59); Albumin 2.9 g/dl (3.5-5.0); Alkaline Phosphatase 129 U/L (38-126); Blood Urea Nitrogen 26 mg/dl (9-20); Carbon Dioxide 22 mmol/L (22-30); Chloride 105 mmol/L (98-107); Estimated Creatinine Clearance 47 ml/min; Glucose 135 mg/dl (70-99); Potassium 4.3 mmol/L (3.5-5.1); Sodium 132 mmol/L (135-145); Total Bilirubin 1.4 mg/dl (0.2-1.3); Total Protein 5.8 g/dl (6.3-8.2)
--- NOTE | 2025-02-09 13:02 | W.PN.HOSP.TC ---
Today's Communication/Plan
-
monitor vitals
see plan
renal bladder US
need SNF placement
dc furhter abx
monitor renal function
cw lactulose
Assessment / Plan
Assessment / Plan
General: Well Developed, Well Nourished and No Apparent Distress
HEENT: NormoCephalic, Moist mucous membranes and Atraumatic
Respiratory: Clear
Cardiac: S1/S2 and Regular Rhythm; No Murmur or Rub
GI: Soft, Non Distended, Normal Bowel Sounds and Tender
Musculoskeletal: No Edema
Neuro: AO x 3 and Nonfocal/grossly intact
Psych: Calm
Symptomatic cholelithiasis
DC further antibody
now on LFD
-antiemetics
-pain control
- General Surgery following
- CT abdomen pelvis with impression Likely hepatic cirrhotic morphology.Contracted gallbladder with stones which may be postprandial as there is large volume fluid material filling the stomach.. Consider Abdominal ultrasound for more complete
evaluation, if clinically warranted.Minimal ascites.4 cm simple right renal cyst.Markedly limited evaluation of large bowel due to majority lack of oral contrast opacification. No intestinal obstruction or free air.Cannot exclude small hiatal hernia.
-abdominal US with Cholelithiasis.Gallbladder wall thickening is probably reactive but recommend clinical correlation for acute cholecystitis.Hepatic cirrhosis.Mild splenomegaly.Mild abdominal ascites.
left upper to lower quad p[ain suspect 2/2 recent surgery. per patient it started after that. monitor
# Acute kidney injury likely dehydration
- Creatinine improving; 1.5 today
UA without UTI
monitor volume status closely
Hold Aldactone, torsemide if creatinine do not improve then will get nephrology evaluation
Constipation
Was refusing lactulose earlier; now taking lactulose
monitor
Acute urinary retention
Bladder scan as needed with straight cath protocol
Renal/bladder ultrasound
#ascites/cirrhosis
# History of paracentesis 2 weeks ago
-hold torsemide for now
Hold Aldactone
# Orthostatic hypotension
- Midodrine continue
Mild hyperkalemia
Hold potassium supplement, monitor
Hyponatremia
Monitor
Thrombocytopenia likely secondary to cirrhosis
Monitor
#History of [place], coronary artery disease status pos CABG
# Cardiac stent
- Aspirin continued
# Hyperlipidemia
-Statin continued
# Depression/anxiety
-Duloxetine continued
# History of COPD
-He is not in acute exacerbation
-Nebulizer continued
#Essential hypertension
- Isosorbide continued
# GERD
-Continue pantoprazole 40 mg BID
DVT ppc
- Heparin subcu
full code
PT/OT; needs SNF
Anticipated Discharge: Within 24 hours
Subjective/Interval History
-
Date of Service: February 09, 2025
has right sided pain
Objective Data
-
Labs:
Laboratory Results
02/09/25
08:06
WBC 14.1 H
Hgb 12.2 L
Hct 32.9 L
Plt Count 106 L
Sodium 132 L
Potassium 4.3
Chloride 105
Carbon Dioxide 22
BUN 26 H
Creatinine 1.5 H
Glucose 135 H
Calcium 8.0 L
Total Bilirubin 1.4 H
AST 37
ALT 38
Alkaline Phosphatase 129 H
Vital Signs:
Vital Signs
Temp Pulse Resp BP Pulse Ox
98.4 F 80 16 121/65 99
02/09/25 07:30 02/09/25 11:43 02/09/25 11:17 02/09/25 11:43 02/09/25 11:17
I&O
02/08/25 02/09/25 02/10/25
06:59 06:59 06:59
Intake Total 1400 / 1400 890 / 890
Output Total 1150 / 1150 1090 / 1090 700 / 700
Balance 250 / 250 -200 / -200 -700 / -700
[2025-02-09] MEDS: IMDUR (EXTENDED RELEASE) 30 MG PO (14:17)
[2025-02-09 14:18] VITALS: BP 116/74
--- NOTE | 2025-02-09 14:36 | CM ---
Addendum entered by Dary Patel 02/09/25 15:36:
dental practice manager received a call from PT and patient maybe able to return to home at discharge patient ambulating 50 feet X 2, will check on stairs
Original Note:
dental practice manager reviewed patient's chart and met with patient, and plan is for skilled placement, options were reviewed, and patient has selected [facility], referral sent and patient has been accepted at [facility], patient will need
Auth for skilled placement.
[facility]

Dr Steve Light
[2025-02-09 15:00] VITALS: BP 111/64
[2025-02-09 15:40] VITALS: BP 114/74; BP 119/70; PULSE 79; PULSE 84; O2SAT 96
[2025-02-09] MEDS: HEPARIN 5000 UNITS SC (19:22)
[2025-02-09 23:39] VITALS: BP 113/72
[2025-02-10] MEDS: DILAUDID 0.5 MG IV (05:10)
[2025-02-10 05:40] VITALS: BMI 24.9
[2025-02-10] MEDS: DUONEB 3 ML INH ×3 (06:20→19:46)
[2025-02-10 07:00] VITALS: BP 136/81
[2025-02-10 07:25] LABS: % Basophils 0.1 % (0-2); % Immature Granulocytes 0.6 % (0-0.5); % Lymphocytes 6.3 % (20.5-51.1); % Monocytes 8.7 % (1.7-9.3); % Neutrophils 84.3 % (42.2-75.2); Absolute Immature Granulocytes 0.1 10^3/uL (0-0.05); Absolute Monocytes 1.4 10^3/uL (0.1-0.6); Absolute Neutrophils 13.2 10^3/uL (1.4-6.5); Hematocrit 34.4 % (39.0-52.0); Hemoglobin 11.8 g/dL (13.0-18.0); Mean Corp Hgb Conc. 34.3 g/dL (33.0-37.0); Mean Corpuscular Hgb 32.4 pg (27.0-31.0); Mean Corpuscular Volume 94.5 fL (80.0-94.0); Mean Platelet Volume 10.4 fL (7.4-10.4); Nucleated Red Blood Cells % 0 % (-); Platelet Count 109 10^3/uL (130-400); Red Blood Cell Count 3.64 10^6/uL (4.70-6.10); Red Cell Dist. Width 14.6 % (11.5-14.5); White Blood Cell Count 15.7 10^3/uL (4.8-10.8)
[2025-02-10 08:31] LABS: ALT (SGPT) 38 U/L (0-50); AST (SGOT) 35 U/L (17-59); Alkaline Phosphatase 127 U/L (38-126); Blood Urea Nitrogen 18 mg/dl (9-20); Calcium 8.3 mg/dl (8.4-10.2); Carbon Dioxide 24 mmol/L (22-30); Chloride 105 mmol/L (98-107); Estimated Creatinine Clearance 71 ml/min; Glucose 137 mg/dl (70-99); Potassium 4.1 mmol/L (3.5-5.1); Sodium 132 mmol/L (135-145); Total Bilirubin 1.4 mg/dl (0.2-1.3); Total Protein 5.9 g/dl (6.3-8.2); eGFR > 60.00
[2025-02-10] MEDS: TIGAN 200 MG IM ×2 (09:45→16:59)
[2025-02-10] MEDS: HEPARIN 5000 UNITS SC ×2 (09:46→20:01)
[2025-02-10] MEDS: ASPIR LOW (ENTERIC COATED) 81 MG PO (09:47)
[2025-02-10] MEDS: DUPHALAC/CHRONULAC 20 GRAMS PO ×3 (09:47→21:10)
[2025-02-10] MEDS: PROTONIX 40 MG PO ×2 (09:47→20:02)
[2025-02-10] MEDS: IMDUR (EXTENDED RELEASE) 60 MG PO (09:47)
[2025-02-10] MEDS: MAG-TAB SR 84 MG PO (09:47)
[2025-02-10] MEDS: CYMBALTA DELAYED RELEASE 30 MG PO (09:47)
[2025-02-10] MEDS: LIPITOR 80 MG PO (09:47)
[2025-02-10] MEDS: NEURONTIN 300 MG PO ×2 (09:47→20:01)
[2025-02-10] MEDS: ProAmatine 5 MG PO (09:47)
--- NOTE | 2025-02-10 09:47 | W.PN.GS2 ---
Today's Communication / Plan
-
Clear liquids
Assessment / Plan
-
Patient is a 69 yo M with cirrhosis p/w symptomatic cholelithiasis
POD#3 s/p laparoscopic cholecystectomy with IOC
Afebrile, VSS
Koch in place for urinary retention
N/V this am, No Bm's
Leukocytosis increased today, ?secondary to developing ileus
Thrombocytopenia, hyponatremia, hyperbilirubinemia present but stable
-- Clear liquids
-- Pain control: Tramadol, IV Dilaudid PRN
-- Abx: none further needed from surgical perspective
-- Medical management as per Hospitalist
-- OK for home meds
-- OOB/ambulate
-- DVT: with SQH
-- Trend labs
-- CM following for SNF placement
Subjective Data
-
Date of Service: February 10, 2025
Patient seen and examined at bedside with Dr. Fonseca. N/V this am. Abdominal discomfort persists. Generally feeling unwell. Reports his catheter is uncomfortable.
Objective Data
-
Intake and Output
02/09/25 02/10/25 02/11/25
06:59 06:59 06:59
Intake Total 890 / 890 1250 / 1250
Output Total 1090 / 1090 2320 / 2320
Balance -200 / -200 -1070 / -1070
Intake:
Oral fluids 840 / 840 1200 / 1200
IV fluids (Total) 50 / 50
IV piggybacks 50 / 50
Output:
Urine, Koch 900 / 900
Urine, Voided 1090 / 1090 50 / 50
Straight cath output 1370 / 1370
Other:
Number of approximated MODERATE 2
amounts of urine
Vital Signs
Temp Pulse Resp BP Pulse Ox
98.3 F 91 18 136/81 93
02/10/25 07:00 02/10/25 07:00 02/10/25 07:00 02/10/25 07:00 02/10/25 07:00
Lab Results
02/10/25 06:54
02/10/25 06:54
Calcium 8.3 mg/dl (8.4-10.2) L 02/10/25 06:54
Total Bilirubin 1.4 mg/dl (0.2-1.3) H 02/10/25 06:54
Direct Bilirubin 0.3 mg/dl (0.0-0.4) 02/07/25 06:03
AST 35 U/L (17-59) 02/10/25 06:54
ALT 38 U/L (0-50) 02/10/25 06:54
Alkaline Phosphatase 127 U/L (38-126) H 02/10/25 06:54
Total Protein 5.9 g/dl (6.3-8.2) L 02/10/25 06:54
Albumin 3.0 g/dl (3.5-5.0) L 02/10/25 06:54
Physical Exam
-
Uncomfortable appearing, NAD
ABD distended, voluntary guarding, mild generalized tenderness
Incisions with intact glue, well approximated, some ecchymosis
Koch with clear kaylyn urine
[2025-02-10] MEDS: DUONEB INH ×2 (10:47→11:17)
--- NOTE | 2025-02-10 10:56 | CM ---
Patient seen at bedside
per nursing [facility], n/v
PT rec SNF vs. home PT
Toby accepted in [facility]- will need ins auth if SNF
PLAN: SNF vs. home PT when medically stable
[2025-02-10 11:40] VITALS: BP 140/91
--- NOTE | 2025-02-10 13:55 | W.PN.HOSP.TC ---
Today's Communication/Plan
-
monitor vitals
see plan
now with [facility]; maintain for now
XR with ileus; conservative management
surgery following
Assessment / Plan
Assessment / Plan
General: Well Developed, Well Nourished and No Apparent Distress
HEENT: NormoCephalic, Moist mucous membranes and Atraumatic
Respiratory: Clear
Cardiac: S1/S2 and Regular Rhythm; No Murmur or Rub
GI: Soft, Non Distended, Normal Bowel Sounds and Tender
Musculoskeletal: No Edema
Neuro: AO x 3 and Nonfocal/grossly intact
Psych: Calm
Symptomatic cholelithiasis
DC further antibody
now back on clears; XR with possible post OP ileus
-antiemetics
-pain control
- General Surgery following
- CT abdomen pelvis with impression Likely hepatic cirrhotic morphology.Contracted gallbladder with stones which may be postprandial as there is large volume fluid material filling the stomach.. Consider Abdominal ultrasound for more complete
evaluation, if clinically warranted.Minimal ascites.4 cm simple right renal cyst.Markedly limited evaluation of large bowel due to majority lack of oral contrast opacification. No intestinal obstruction or free air.Cannot exclude small hiatal hernia.
-abdominal US with Cholelithiasis.Gallbladder wall thickening is probably reactive but recommend clinical correlation for acute cholecystitis.Hepatic cirrhosis.Mild splenomegaly.Mild abdominal ascites.
left upper to lower quad pain suspect 2/2 recent surgery. per patient it started after that. monitor
# Acute kidney injury likely dehydration
- Creatinine improving; 1 today
UA without UTI
monitor volume status closely
Hold Aldactone, torsemide if creatinine do not improve then will get nephrology evaluation
Constipation
Was refusing lactulose earlier; now taking lactulose
monitor
Hyponatremia
Monitor
Acute urinary retention
Renal/bladder ultrasound without hydronephrosis. Now with catheter. Maintain Cummings for now
#ascites/cirrhosis
# History of paracentesis 2 weeks ago
-hold torsemide for now
Hold Aldactone
# Orthostatic hypotension
- Midodrine continue
Mild hyperkalemia
Hold potassium supplement, monitor
Hyponatremia
Monitor
Thrombocytopenia likely secondary to cirrhosis
Monitor
#History of [place], coronary artery disease status pos CABG
# Cardiac stent
- Aspirin continued
# Hyperlipidemia
-Statin continued
# Depression/anxiety
-Duloxetine continued
# History of COPD
-He is not in acute exacerbation
-Nebulizer continued
#Essential hypertension
- Isosorbide continued
# GERD
-Continue pantoprazole 40 mg BID
DVT ppc
- Heparin subcu
full code
PT/OT; needs SNF
I spent a total of 52 minutes with the patient or on the floor. More than 50% of this time involved counseling and coordination of care.
Anticipated Discharge: > 48 hours
Subjective/Interval History
-
Date of Service: February 10, 2025
has nausea
Objective Data
-
Labs:
Laboratory Results
02/10/25
06:54
WBC 15.7 H
Hgb 11.8 L
Hct 34.4 L
Plt Count 109 L
Sodium 132 L
Potassium 4.1
Chloride 105
Carbon Dioxide 24
BUN 18
Creatinine 1.0
Glucose 137 H
Calcium 8.3 L
Total Bilirubin 1.4 H
AST 35
ALT 38
Alkaline Phosphatase 127 H
Vital Signs:
Vital Signs
Temp Pulse Resp BP Pulse Ox
98.3 F 91 18 136/81 93
02/10/25 07:00 02/10/25 07:00 02/10/25 07:00 02/10/25 07:00 02/10/25 07:00
I&O
02/09/25 02/10/25 02/11/25
06:59 06:59 06:59
Intake Total 890 / 890 1250 / 1250
Output Total 1090 / 1090 2320 / 2320
Balance -200 / -200 -1070 / -1070
[2025-02-10 14:11] VITALS: BP 143/86
[2025-02-10] MEDS: ProAmatine PO ×2 (14:25→17:08)
[2025-02-10] MEDS: IMDUR (EXTENDED RELEASE) 30 MG PO (14:25)
[2025-02-10 15:00] VITALS: BP 141/84
[2025-02-10 22:53] VITALS: BP 158/91
[2025-02-11 05:26] VITALS: BMI 24.1
[2025-02-11 06:13] VITALS: BMI 24.0
[2025-02-11 07:22] VITALS: BP 128/70
[2025-02-11 07:42] LABS: ALT (SGPT) 31 U/L (0-50); AST (SGOT) 30 U/L (17-59); Albumin 2.9 g/dl (3.5-5.0); Alkaline Phosphatase 125 U/L (38-126); Blood Urea Nitrogen 20 mg/dl (9-20); Calcium 8.5 mg/dl (8.4-10.2); Carbon Dioxide 22 mmol/L (22-30); Chloride 108 mmol/L (98-107); Estimated Creatinine Clearance 71 ml/min; Glucose 146 mg/dl (70-99); Potassium 4.1 mmol/L (3.5-5.1); Sodium 133 mmol/L (135-145); Total Bilirubin 1.8 mg/dl (0.2-1.3); Total Protein 5.7 g/dl (6.3-8.2); eGFR > 60.00
[2025-02-11] MEDS: ProAmatine PO ×3 (08:00→13:27)
[2025-02-11] MEDS: DUONEB 3 ML INH ×4 (08:16→20:25)
[2025-02-11] MEDS: CYMBALTA DELAYED RELEASE 30 MG PO (08:27)
[2025-02-11] MEDS: LIPITOR 80 MG PO (08:27)
[2025-02-11] MEDS: DUPHALAC/CHRONULAC PO ×2 (08:27→08:45)
[2025-02-11] MEDS: ASPIR LOW (ENTERIC COATED) 81 MG PO (08:27)
[2025-02-11] MEDS: PROTONIX 40 MG PO ×2 (08:27→20:32)
[2025-02-11] MEDS: IMDUR (EXTENDED RELEASE) 60 MG PO (08:27)
[2025-02-11] MEDS: MAG-TAB SR 84 MG PO (08:27)
[2025-02-11] MEDS: NEURONTIN 300 MG PO ×2 (08:27→20:32)
[2025-02-11] MEDS: HEPARIN 5000 UNITS SC ×2 (08:46→20:31)
--- NOTE | 2025-02-11 11:24 | W.PN.GS2 ---
Addendum entered and electronically signed by Brady Almanzar MD 02/11/25 15:14:
I saw and examined the patient.
The [facility] OPERATOR's note was reviewed and I agree with the note.
Comment:
Seen earlier with C[facility] OPERATOR.
Having BMs. No nausea.
AFVSS; WBC 15.5.
Abdominal incisions looked ok.
Diet advancement.
OOB.
Original Note:
Today's Communication / Plan
-
ADAT
Assessment / Plan
-
Patient is a 69 yo M with cirrhosis p/w symptomatic cholelithiasis
POD#4 s/p laparoscopic cholecystectomy with IOC
Afebrile, VSS
Koch in place for urinary retention
Ileus resolving
Labs pending
-- Advance diet as tolerated
-- Pain control: Tramadol, IV Dilaudid PRN
-- Abx: none further needed from surgical perspective
-- Medical management as per Hospitalist
-- OK for home meds
-- OOB/ambulate
-- DVT: with SQH
-- Trend labs
-- CM following for SNF placement
Subjective Data
-
Date of Service: February 11, 2025
Patient seen and examined at bedside. Denies nausea. Vomited last night but none since. Reports he overall feels better. Denies abd pain. Has passed some loose stools and flatus
Objective Data
-
Intake and Output
02/10/25 02/11/25 02/12/25
06:59 06:59 06:59
Intake Total 1250 / 1250 600 / 600
Output Total 2320 / 2320 750 / 750
Balance -1070 / -1070 -150 / -150
Intake:
Oral fluids 1200 / 1200 600 / 600
IV fluids (Total) 50 / 50
Output:
Urine, Koch 900 / 900 750 / 750
Urine, Voided 50
Straight cath output 1370 / 1370
Vital Signs
Temp Pulse Resp BP Pulse Ox
98.1 F 90 18 128/70 96
02/11/25 07:22 02/11/25 11:18 02/11/25 11:18 02/11/25 07:22 02/11/25 11:18
Lab Results
02/11/25 06:53
Calcium 8.5 mg/dl (8.4-10.2) 02/11/25 06:53
Total Bilirubin 1.8 mg/dl (0.2-1.3) H 02/11/25 06:53
Direct Bilirubin 0.3 mg/dl (0.0-0.4) 02/07/25 06:03
AST 30 U/L (17-59) 02/11/25 06:53
ALT 31 U/L (0-50) 02/11/25 06:53
Alkaline Phosphatase 125 U/L (38-126) 02/11/25 06:53
Total Protein 5.7 g/dl (6.3-8.2) L 02/11/25 06:53
Albumin 2.9 g/dl (3.5-5.0) L 02/11/25 06:53
Physical Exam
-
NAD
ABD mildly distended, NT, no guarding
Incisions with intact glue, well approximated, some ecchymosis
Koch with clear kaylyn urine
--- NOTE | 2025-02-11 11:26 | W.PN.HOSP.TC ---
Today's Communication/Plan
-
Monitor vitals
See plan
Maintain Koch for now
Continue with clears
Assessment / Plan
Assessment / Plan
General: Well Developed, Well Nourished and No Apparent Distress
HEENT: NormoCephalic, Moist mucous membranes and Atraumatic
Respiratory: Clear
Cardiac: S1/S2 and Regular Rhythm; No Murmur or Rub
GI: Soft, Non Distended, Normal Bowel Sounds and Tender
Musculoskeletal: No Edema
Neuro: AO x 3 and Nonfocal/grossly intact
Psych: Calm
Symptomatic cholelithiasis
DC further antibody
now back on clears; XR with possible post OP ileus
-antiemetics
-pain control
- General Surgery following
- CT abdomen pelvis with impression Likely hepatic cirrhotic morphology.Contracted gallbladder with stones which may be postprandial as there is large volume fluid material filling the stomach.. Consider Abdominal ultrasound for more complete
evaluation, if clinically warranted.Minimal ascites.4 cm simple right renal cyst.Markedly limited evaluation of large bowel due to majority lack of oral contrast opacification. No intestinal obstruction or free air.Cannot exclude small hiatal hernia.
-abdominal US with Cholelithiasis.Gallbladder wall thickening is probably reactive but recommend clinical correlation for acute cholecystitis.Hepatic cirrhosis.Mild splenomegaly.Mild abdominal ascites.
left upper to lower quad pain suspect 2/2 recent surgery. per patient it started after that. monitor
# Acute kidney injury likely dehydration
- Creatinine improving; 1 today
UA without UTI
monitor volume status closely
Hold Aldactone, torsemide if creatinine do not improve then will get nephrology evaluation
Constipation
Was refusing lactulose earlier; now taking lactulose
monitor
Hyponatremia
Monitor
Acute urinary retention
Renal/bladder ultrasound without hydronephrosis. Now with catheter. Maintain Koch for now
#ascites/cirrhosis
# History of paracentesis 2 weeks ago
-hold torsemide for now
Hold Aldactone
# Orthostatic hypotension
- Midodrine continue
Mild hyperkalemia
Hold potassium supplement, monitor
Hyponatremia
Monitor
Thrombocytopenia likely secondary to cirrhosis
Monitor
#History of [place], coronary artery disease status pos CABG
# Cardiac stent
- Aspirin continued
# Hyperlipidemia
-Statin continued
# Depression/anxiety
-Duloxetine continued
# History of COPD
-He is not in acute exacerbation
-Nebulizer continued
#Essential hypertension
- Isosorbide continued
# GERD
-Continue pantoprazole 40 mg BID
DVT ppc
- Heparin subcu
full code
PT/OT; needs SNF however patient refusing
Anticipated Discharge: 24 - 48 hours
Subjective/Interval History
-
Date of Service: February 11, 2025
denies pain
Objective Data
-
Labs:
Laboratory Results
02/11/25
06:53
WBC Pending
Hgb Pending
Hct Pending
Plt Count Pending
Sodium 133 L
Potassium 4.1
Chloride 108 H
Carbon Dioxide 22
BUN 20
Creatinine 1.0
Glucose 146 H
Calcium 8.5
Total Bilirubin 1.8 H
AST 30
ALT 31
Alkaline Phosphatase 125
Vital Signs:
Vital Signs
Temp Pulse Resp BP Pulse Ox
98.1 F 90 18 128/70 96
02/11/25 07:22 02/11/25 11:18 02/11/25 11:18 02/11/25 07:22 02/11/25 11:18
I&O
02/10/25 02/11/25 02/12/25
06:59 06:59 06:59
Intake Total 1250 / 1250 600 / 600
Output Total 2320 / 2320 750 / 750
Balance -1070 / -1070 -150 / -150
[2025-02-11 11:54] LABS: % Basophils 0.1 % (0-2); % Immature Granulocytes 0.7 % (0-0.5); % Lymphocytes 5.5 % (20.5-51.1); % Neutrophils 85.7 % (42.2-75.2); Absolute Immature Granulocytes 0.1 10^3/uL (0-0.05); Absolute Lymphocytes 0.9 10^3/uL (1.2-3.4); Absolute Monocytes 1.2 10^3/uL (0.1-0.6); Absolute Neutrophils 13.3 10^3/uL (1.4-6.5); Hematocrit 34.1 % (39.0-52.0); Hemoglobin 12.1 g/dL (13.0-18.0); Mean Corp Hgb Conc. 35.5 g/dL (33.0-37.0); Mean Corpuscular Hgb 32.9 pg (27.0-31.0); Mean Corpuscular Volume 92.7 fL (80.0-94.0); Mean Platelet Volume 10.7 fL (7.4-10.4); Nucleated Red Blood Cells % 0 % (-); Platelet Count 136 10^3/uL (130-400); Red Blood Cell Count 3.68 10^6/uL (4.70-6.10); Red Cell Dist. Width 14.7 % (11.5-14.5); White Blood Cell Count 15.5 10^3/uL (4.8-10.8)
[2025-02-11 13:05] VITALS: BP 121/77
[2025-02-11] MEDS: IMDUR (EXTENDED RELEASE) 30 MG PO (14:04)
[2025-02-11 15:24] VITALS: BP 106/66
[2025-02-11] MEDS: ProAmatine 5 MG PO (17:25)
[2025-02-11] MEDS: DUPHALAC/CHRONULAC 20 GRAMS PO ×2 (17:25→21:29)
[2025-02-11 23:13] VITALS: BP 123/69
[2025-02-12 04:53] VITALS: BMI 24.1
[2025-02-12 06:00] LABS: % Basophils 0.1 % (0-2); % Eosinophils 0.1 % (0-6); % Immature Granulocytes 0.6 % (0-0.5); % Lymphocytes 6.5 % (20.5-51.1); % Monocytes 8.3 % (1.7-9.3); % Neutrophils 84.4 % (42.2-75.2); Absolute Immature Granulocytes 0.1 10^3/uL (0-0.05); Absolute Monocytes 1.3 10^3/uL (0.1-0.6); Absolute Neutrophils 12.7 10^3/uL (1.4-6.5); Hematocrit 33.6 % (39.0-52.0); Hemoglobin 11.7 g/dL (13.0-18.0); Mean Corp Hgb Conc. 34.8 g/dL (33.0-37.0); Mean Corpuscular Hgb 32.8 pg (27.0-31.0); Mean Corpuscular Volume 94.1 fL (80.0-94.0); Mean Platelet Volume 10.9 fL (7.4-10.4); Nucleated Red Blood Cells % 0 % (-); Platelet Count 131 10^3/uL (130-400); Red Blood Cell Count 3.57 10^6/uL (4.70-6.10); Red Cell Dist. Width 14.6 % (11.5-14.5)
[2025-02-12 06:33] LABS: ALT (SGPT) 30 U/L (0-50); AST (SGOT) 34 U/L (17-59); Albumin 2.9 g/dl (3.5-5.0); Alkaline Phosphatase 117 U/L (38-126); Blood Urea Nitrogen 20 mg/dl (9-20); Calcium 8.3 mg/dl (8.4-10.2); Carbon Dioxide 23 mmol/L (22-30); Chloride 105 mmol/L (98-107); Estimated Creatinine Clearance 71 ml/min; Glucose 140 mg/dl (70-99); Potassium 3.8 mmol/L (3.5-5.1); Sodium 132 mmol/L (135-145); Total Bilirubin 1.8 mg/dl (0.2-1.3); Total Protein 5.8 g/dl (6.3-8.2); eGFR > 60.00
[2025-02-12 07:00] VITALS: BP 139/85
[2025-02-12] MEDS: DUONEB 3 ML INH (08:23)
[2025-02-12] MEDS: ASPIR LOW (ENTERIC COATED) 81 MG PO (09:01)
[2025-02-12] MEDS: NEURONTIN 300 MG PO ×2 (09:01→20:00)
[2025-02-12] MEDS: LIPITOR 80 MG PO (09:01)
[2025-02-12] MEDS: DUPHALAC/CHRONULAC 20 GRAMS PO ×3 (09:02→21:28)
[2025-02-12] MEDS: IMDUR (EXTENDED RELEASE) 60 MG PO (09:02)
[2025-02-12] MEDS: HEPARIN 5000 UNITS SC ×2 (09:02→19:59)
[2025-02-12] MEDS: MAG-TAB SR 84 MG PO (09:02)
[2025-02-12] MEDS: PROTONIX 40 MG PO ×2 (09:02→20:00)
[2025-02-12] MEDS: CYMBALTA DELAYED RELEASE 30 MG PO (09:02)
[2025-02-12] MEDS: ProAmatine PO ×2 (09:03→12:41)
--- NOTE | 2025-02-12 10:07 | W.PN.GS2 ---
Today's Communication / Plan
-
low fat diet
Assessment / Plan
-
Patient is a 69 yo M with cirrhosis p/w symptomatic cholelithiasis
POD#5 s/p laparoscopic cholecystectomy with IOC
Afebrile, VSS
Koch in place for urinary retention
Ileus resolving
Leukocytosis present, stable.
Hyponatremia, hyperbilirubinemia stable. Thrombocytopenia resolved.
-- Continue LFD
-- Pain control: Tramadol, Tylenol prn
-- Abx: none further needed from surgical perspective
-- Medical management as per Hospitalist
-- OOB/ambulate
-- DVT: with SQH
-- CM following for SNF placement
Surgery service to follow peripherally, please call with questions/concerns.
Subjective Data
-
Date of Service: February 12, 2025
Patient seen and examined at bedside with Dr. Almanzar. Feels much better today. Denies pain. Denies n/v. Passing flatus/stools. Tolerating PO work up.
Objective Data
-
Intake and Output
02/11/25 02/12/25 02/13/25
06:59 06:59 06:59
Intake Total 600 / 600 1200 / 1200
Output Total 750 / 750 650 / 650
Balance -150 / -150 550 / 550
Intake:
Oral fluids 600 / 600 1150 / 1150
IV fluids (Total) 50 / 50
Output:
Urine, Koch 750 / 750 650 / 650
Vital Signs
Temp Pulse Resp BP Pulse Ox
98.4 F 87 18 139/85 97
02/12/25 07:00 02/12/25 08:24 02/12/25 08:24 02/12/25 07:00 02/12/25 08:24
Lab Results
02/12/25 04:21
02/12/25 04:21
Calcium 8.3 mg/dl (8.4-10.2) L 02/12/25 04:21
Total Bilirubin 1.8 mg/dl (0.2-1.3) H 02/12/25 04:21
Direct Bilirubin 0.3 mg/dl (0.0-0.4) 02/07/25 06:03
AST 34 U/L (17-59) 02/12/25 04:21
ALT 30 U/L (0-50) 02/12/25 04:21
Alkaline Phosphatase 117 U/L (38-126) 02/12/25 04:21
Total Protein 5.8 g/dl (6.3-8.2) L 02/12/25 04:21
Albumin 2.9 g/dl (3.5-5.0) L 02/12/25 04:21
Physical Exam
-
NAD
ABD ND, NT, no guarding
Incisions with intact glue, well approximated, some ecchymosis
Koch with clear kaylyn urine
--- NOTE | 2025-02-12 11:27 | W.PN.HOSP.TC ---
Today's Communication/Plan
-
monitor vitals
see plan
trial of low fat diet
voiding trial
hopeful dc tomorrow
Assessment / Plan
Assessment / Plan
General: Well Developed, Well Nourished and No Apparent Distress
HEENT: NormoCephalic, Moist mucous membranes and Atraumatic
Respiratory: Clear
Cardiac: S1/S2 and Regular Rhythm; No Murmur or Rub
GI: Soft, Non Distended, Normal Bowel Sounds and Tender
Musculoskeletal: No Edema
Neuro: AO x 3 and Nonfocal/grossly intact
Psych: Calm
Symptomatic cholelithiasis
DC further antibody
now back on clears; XR with possible post OP ileus
-antiemetics
-pain control
- General Surgery following; trial of low fat diet
- CT abdomen pelvis with impression Likely hepatic cirrhotic morphology.Contracted gallbladder with stones which may be postprandial as there is large volume fluid material filling the stomach.. Consider Abdominal ultrasound for more complete
evaluation, if clinically warranted.Minimal ascites.4 cm simple right renal cyst.Markedly limited evaluation of large bowel due to majority lack of oral contrast opacification. No intestinal obstruction or free air.Cannot exclude small hiatal hernia.
-abdominal US with Cholelithiasis.Gallbladder wall thickening is probably reactive but recommend clinical correlation for acute cholecystitis.Hepatic cirrhosis.Mild splenomegaly.Mild abdominal ascites.
# Acute kidney injury likely dehydration
- Creatinine improving; 1 today
UA without UTI
monitor volume status closely
Hold Aldactone, torsemide if creatinine do not improve then will get nephrology evaluation
Constipation
Was refusing lactulose earlier; now taking lactulose
monitor
Hyponatremia
Monitor
Acute urinary retention
Renal/bladder ultrasound without hydronephrosis. Now with catheter. voiding trial today
#ascites/cirrhosis
# History of paracentesis 2 weeks ago
-hold torsemide for now
Hold Aldactone
# Orthostatic hypotension
- Midodrine continue
Mild hyperkalemia
Holding potassium supplement, monitor
Thrombocytopenia likely secondary to cirrhosis
Monitor
#History of [place], coronary artery disease status pos CABG
# Cardiac stent
- Aspirin continued
# Hyperlipidemia
-Statin continued
# Depression/anxiety
-Duloxetine continued
# History of COPD
-He is not in acute exacerbation
-Nebulizer continued
#Essential hypertension
- Isosorbide continued
# GERD
-Continue pantoprazole 40 mg BID
DVT ppc
- Heparin subcu
full code
PT/OT; needs SNF however patient refusing
Anticipated Discharge: Within 24 hours
Subjective/Interval History
-
Date of Service: February 12, 2025
has intermittent nausea
Objective Data
-
Labs:
Laboratory Results
02/12/25
04:21
WBC 15.0 H
Hgb 11.7 L
Hct 33.6 L
Plt Count 131
Sodium 132 L
Potassium 3.8
Chloride 105
Carbon Dioxide 23
BUN 20
Creatinine 1.0
Glucose 140 H
Calcium 8.3 L
Total Bilirubin 1.8 H
AST 34
ALT 30
Alkaline Phosphatase 117
Vital Signs:
Vital Signs
Temp Pulse Resp BP Pulse Ox
98.4 F 87 18 139/85 97
02/12/25 07:00 02/12/25 08:24 02/12/25 08:24 02/12/25 07:00 02/12/25 08:24
I&O
02/11/25 02/12/25 02/13/25
06:59 06:59 06:59
Intake Total 600 / 600 1200 / 1200
Output Total 750 / 750 650 / 650
Balance -150 / -150 550 / 550
[2025-02-12 14:08] VITALS: BP 133/87; PULSE 96; O2SAT 98
[2025-02-12] MEDS: IMDUR (EXTENDED RELEASE) 30 MG PO (14:11)
[2025-02-12 15:00] VITALS: BP 113/71
[2025-02-12] MEDS: ProAmatine 5 MG PO (17:05)
--- NOTE | 2025-02-12 18:01 | PTCARENOTE ---
Dr Rowell pt with 315ml on bladder scan. pt is not uncomfortable at this time. ordered to rescan in 4 hours.
[2025-02-12] MEDS: DILAUDID 0.5 MG IV (21:55)
[2025-02-12 22:57] VITALS: BP 118/70
--- NOTE | 2025-02-13 05:29 | PTCARENOTE ---
Patient continues to retain urine without voiding through shift. Patient refusing to have cummings cath placed back in but is agreeable to straight cath. DIRECTOR INSTITUTION made aware.
[2025-02-13 06:00] VITALS: BMI 24.4
[2025-02-13 07:18] LABS: % Basophils 0.2 % (0-2); % Eosinophils 0.2 % (0-6); % Immature Granulocytes 0.3 % (0-0.5); % Lymphocytes 7.1 % (20.5-51.1); % Monocytes 7.9 % (1.7-9.3); % Neutrophils 84.3 % (42.2-75.2); Absolute Lymphocytes 0.8 10^3/uL (1.2-3.4); Absolute Monocytes 0.9 10^3/uL (0.1-0.6); Absolute Neutrophils 9.7 10^3/uL (1.4-6.5); Hematocrit 30.9 % (39.0-52.0); Hemoglobin 10.9 g/dL (13.0-18.0); Mean Corp Hgb Conc. 35.3 g/dL (33.0-37.0); Mean Corpuscular Hgb 33.2 pg (27.0-31.0); Mean Corpuscular Volume 94.2 fL (80.0-94.0); Mean Platelet Volume 10.5 fL (7.4-10.4); Nucleated Red Blood Cells % 0 % (-); Platelet Count 113 10^3/uL (130-400); Red Blood Cell Count 3.28 10^6/uL (4.70-6.10); Red Cell Dist. Width 14.6 % (11.5-14.5); White Blood Cell Count 11.5 10^3/uL (4.8-10.8)
[2025-02-13 07:48] VITALS: BP 103/67
[2025-02-13] MEDS: MAG-TAB SR 84 MG PO (08:32)
[2025-02-13] MEDS: DUPHALAC/CHRONULAC 20 GRAMS PO ×3 (08:32→22:46)
[2025-02-13] MEDS: IMDUR (EXTENDED RELEASE) 60 MG PO (08:32)
[2025-02-13] MEDS: NEURONTIN 300 MG PO ×2 (08:33→21:37)
[2025-02-13] MEDS: PROTONIX 40 MG PO ×2 (08:33→21:37)
[2025-02-13] MEDS: HEPARIN 5000 UNITS SC ×2 (08:33→21:38)
[2025-02-13] MEDS: ProAmatine 5 MG PO ×3 (08:33→16:37)
[2025-02-13] MEDS: CYMBALTA DELAYED RELEASE 30 MG PO (08:33)
[2025-02-13] MEDS: LIPITOR 80 MG PO (08:33)
[2025-02-13] MEDS: ASPIR LOW (ENTERIC COATED) 81 MG PO (08:33)
[2025-02-13] MEDS: FLOMAX 0.4 MG PO (09:42)
--- NOTE | 2025-02-13 09:57 | W.PN.HOSP.TC ---
Today's Communication/Plan
-
Trial of self cath
Start Flomax
Resume diuretics
Encourage activity, out of bed and walking
Assessment / Plan
Assessment / Plan
General: Well Developed, Well Nourished and No Apparent Distress
HEENT: NormoCephalic, Moist mucous membranes and Atraumatic
Respiratory: Clear
Cardiac: S1/S2 and Regular Rhythm; No Murmur or Rub
GI: Soft, Non Distended, Normal Bowel Sounds and Tender
Musculoskeletal: No Edema
Neuro: AO x 3 and Nonfocal/grossly intact
Psych: Calm
Symptomatic cholelithiasis
s/p Laparoscopic cholecystectomy with IOC by Dr. Denise on 02/06.
-antiemetics
-pain control
- General Surgery following; trial of low fat diet
- CT abdomen pelvis with impression Likely hepatic cirrhotic morphology.Contracted gallbladder with stones which may be postprandial as there is large volume fluid material filling the stomach.. Consider Abdominal ultrasound for more complete
evaluation, if clinically warranted.Minimal ascites.4 cm simple right renal cyst.Markedly limited evaluation of large bowel due to majority lack of oral contrast opacification. No intestinal obstruction or free air.Cannot exclude small hiatal hernia.
-abdominal US with Cholelithiasis.Gallbladder wall thickening is probably reactive but recommend clinical correlation for acute cholecystitis.Hepatic cirrhosis.Mild splenomegaly.Mild abdominal ascites.
# Post op Ileus, resolving, followed by surgery
# Post op mild acute blood loss anemia
# Thrombocytopenia, Thrombocytopenia likely secondary to cirrhosis
Monitor
# Acute kidney injury likely dehydration
Resolved
UA without UTI
monitor volume status closely
Hold Aldactone, torsemide if creatinine do not improve then will get nephrology evaluation
Hyponatremia
Monitor
# Acute urinary retention
Renal/bladder ultrasound without hydronephrosis. Pt refused urine catheter, would like to try straight cath
d/w nursing staff, started on Flomax, hope to teach him self cath, will need oP urology follow up but very likely to resolve upon resuming activities.
#ascites/cirrhosis
# History of paracentesis 2 weeks ago
- Resume diuretics
# Orthostatic hypotension
- Midodrine continue
Mild hyperkalemia
Holding potassium supplement, monitor
#History of [place], coronary artery disease status pos CABG
# Cardiac stent
Denies chest pain or sob
- Aspirin continued
# Hyperlipidemia
-Statin continued
# Depression/anxiety
-Duloxetine continued
# History of COPD
-He is not in acute exacerbation
-Nebulizer continued
#Essential hypertension
- Isosorbide continued
# GERD
-Continue pantoprazole 40 mg BID
DVT ppc
- Heparin subcu
full code
Total time spent to see the patient, examine the patient, review data and lab results, discuss treatment plan with patient and nursing staff around 55 minutes
Anticipated Discharge: 24 - 48 hours
Subjective/Interval History
-
Date of Service: February 13, 2025
He refuses Koch but wants to try straight cath
Objective Data
-
Labs:
Laboratory Results
02/13/25
06:49
WBC 11.5 H
Hgb 10.9 L
Hct 30.9 L
Plt Count 113 L
Sodium Pending
Potassium Pending
Chloride Pending
Carbon Dioxide Pending
BUN Pending
Creatinine Pending
Glucose Pending
Calcium Pending
Total Bilirubin Pending
AST Pending
ALT Pending
Alkaline Phosphatase Pending
Vital Signs:
Vital Signs
Temp Pulse Resp BP Pulse Ox
98.7 F 76 18 103/67 97
02/13/25 07:48 02/13/25 08:33 02/13/25 07:48 02/13/25 08:33 02/13/25 07:48
I&O
02/12/25 02/13/25 02/14/25
06:59 06:59 06:59
Intake Total 1200 / 1200 240 / 240
Output Total 650 / 650 400 / 400
Balance 550 / 550 -160 / -160
[2025-02-13 10:08] LABS: ALT (SGPT) 31 U/L (0-50); AST (SGOT) 35 U/L (17-59); Albumin 2.6 g/dl (3.5-5.0); Alkaline Phosphatase 112 U/L (38-126); Blood Urea Nitrogen 21 mg/dl (9-20); Calcium 8.2 mg/dl (8.4-10.2); Carbon Dioxide 24 mmol/L (22-30); Chloride 102 mmol/L (98-107); Estimated Creatinine Clearance 71 ml/min; Glucose 127 mg/dl (70-99); Potassium 4.2 mmol/L (3.5-5.1); Sodium 130 mmol/L (135-145); Total Bilirubin 1.4 mg/dl (0.2-1.3); Total Protein 5.3 g/dl (6.3-8.2); eGFR > 60.00
[2025-02-13 13:10] VITALS: BP 112/71
[2025-02-13] MEDS: IMDUR (EXTENDED RELEASE) 30 MG PO (13:14)
[2025-02-13 15:17] VITALS: BP 104/70
[2025-02-13] MEDS: KCL 20 MEQ PO (21:38)
[2025-02-13 23:13] VITALS: BP 111/68
[2025-02-14 06:00] VITALS: BMI 24.4
[2025-02-14 07:33] VITALS: BP 111/65
[2025-02-14] MEDS: DUPHALAC/CHRONULAC 20 GRAMS PO (07:59)
[2025-02-14] MEDS: HEPARIN 5000 UNITS SC (07:59)
[2025-02-14] MEDS: ProAmatine 5 MG PO ×2 (07:59→11:40)
[2025-02-14] MEDS: CYMBALTA DELAYED RELEASE 30 MG PO (08:00)
[2025-02-14] MEDS: IMDUR (EXTENDED RELEASE) 60 MG PO (08:00)
[2025-02-14] MEDS: KCL 20 MEQ PO (08:00)
[2025-02-14] MEDS: ASPIR LOW (ENTERIC COATED) 81 MG PO (08:00)
[2025-02-14] MEDS: PROTONIX 40 MG PO (08:00)
[2025-02-14] MEDS: LIPITOR 80 MG PO (08:00)
[2025-02-14] MEDS: NEURONTIN 300 MG PO (08:00)
[2025-02-14] MEDS: ALDACTONE 100 MG PO (08:00)
[2025-02-14] MEDS: MAG-TAB SR 84 MG PO (08:00)
--- NOTE | 2025-02-14 08:57 | W.PN.HOSP.TC ---
Today's Communication/Plan
-
dc planning
Assessment / Plan
Assessment / Plan
General: Well Developed, Well Nourished and No Apparent Distress
HEENT: NormoCephalic, Moist mucous membranes and Atraumatic
Respiratory: Clear
Cardiac: S1/S2 and Regular Rhythm; No Murmur or Rub
GI: Soft, Non Distended, Normal Bowel Sounds and Tender
Musculoskeletal: No Edema
Neuro: AO x 3 and Nonfocal/grossly intact
Psych: Calm
Symptomatic cholelithiasis
s/p Laparoscopic cholecystectomy with IOC by Dr. Denise on 02/06.
-antiemetics
-pain control
- General Surgery following; trial of low fat diet
- CT abdomen pelvis with impression Likely hepatic cirrhotic morphology.Contracted gallbladder with stones which may be postprandial as there is large volume fluid material filling the stomach.. Consider Abdominal ultrasound for more complete
evaluation, if clinically warranted.Minimal ascites.4 cm simple right renal cyst.Markedly limited evaluation of large bowel due to majority lack of oral contrast opacification. No intestinal obstruction or free air.Cannot exclude small hiatal hernia.
-abdominal US with Cholelithiasis.Gallbladder wall thickening is probably reactive but recommend clinical correlation for acute cholecystitis.Hepatic cirrhosis.Mild splenomegaly.Mild abdominal ascites.
# Post op Ileus, resolved, tolerating diet, had BM and passing gas.
ng, followed by surgery
# Post op mild acute blood loss anemia
# Thrombocytopenia, Thrombocytopenia likely secondary to cirrhosis
Monitor
# Acute kidney injury likely dehydration
Resolved
UA without UTI
monitor volume status closely
Held Aldactone, torsemide.
#Hyponatremia
No confusion
Monitor
# Acute urinary retention, resolved.
Renal/bladder ultrasound without hydronephrosis. Pt refused urine catheter, would like to try straight cath , he is able to pass urine now after starting walking.
Started on Flomax, advised to f/w Urology in OP, he verbalized understanding.
#ascites/cirrhosis
# History of paracentesis 2 weeks ago
- Resume diuretics
# Orthostatic hypotension
- Midodrine continue
Mild hyperkalemia
Held potassium supplement, monitor
#History of [place], coronary artery disease status pos CABG
# Cardiac stent
Denies chest pain or sob
- Aspirin continued
# Hyperlipidemia
-Statin continued
# Depression/anxiety
-Duloxetine continued
# History of COPD
-He is not in acute exacerbation
-Nebulizer continued
#Essential hypertension
- Isosorbide continued
# GERD
-Continue pantoprazole 40 mg BID
DVT ppc
- Heparin subcu
full code
Total discharge time spent to see the patient, examine the patient, review data and lab results, discuss discharge plan with patient and nursing staff around 67 minutes
Anticipated Discharge: Today
Subjective/Interval History
-
Date of Service: February 14, 2025
No chest pain
No abdominal pain
He is tolerating diet
He is able to pass urine
Objective Data
-
Vital Signs:
Vital Signs
Temp Pulse Resp BP Pulse Ox
98.6 F 80 18 111/65 97
02/14/25 07:33 02/14/25 07:59 02/14/25 07:33 02/14/25 07:59 02/14/25 07:33
I&O
02/13/25 02/14/25 02/15/25
06:59 06:59 06:59
Intake Total 240 / 240 240 / 240
Output Total 400 / 400 700 / 700
Balance -160 / -160 -460 / -460
--- NOTE | 2025-02-14 10:00 | CM ---
Addendum entered by Dary Patel 02/14/25 10:48:
Chart reviewed and physical therapy saw patient again today and plan is for patient to return to home with [facility], referral sent to [facility] care
[facility]
[phone]

Original Note:
Chart reviewed and patient is for possible discharge today, will await updated PT notes and review final plan with patient.
Plan; Await updated PT notes.
[2025-02-14 10:28] VITALS: BP 95/55; PULSE 86; O2SAT 99
[2025-02-14 10:40] VITALS: BP 95/55
[2025-02-14 11:09] VITALS: BP 102/65
[2025-02-14] MEDS: FLOMAX 0.4 MG PO (11:40)
--- NOTE | 2025-02-16 06:47 | W.DCSUMMARY ---
Discharge Summary
Discharge Data
Date of Admission: 02/06/25
Date of Discharge: 02/14/25
-
Pending Results: No
Hospital Course
69 years old male presented with abdominal pain and vomiting. Patient was diagnosed with acute cholecystitis was admitted to the hospital. Patient was evaluated by surgery. He underwent laparoscopic cholecystectomy with intraoperative
cholangiogram that came back negative. Patient was followed by surgery postoperatively. He had mild case of postoperative ileus that later resolved and he was able to tolerate diet. He was noted to have mild acute kidney injury on arrival that
later resolved. He was started back on his outpatient diuretic treatment. Patient had acute urinary retention that later resolved. He was started on Flomax was advised to follow-up with urologist, he verbalized understanding. Patient was
evaluated by physical therapy recommended home health services. Patient remained hemodynamically stable and was discharged in a stable condition.
Discharge Plan
-
Patient Disposition: Home with Home Care
Discharge Diagnosis/Procedures: Laparoscopic cholecystectomy.
Acute urinary retention, resolved. You were given Flomax. Make appointment with urology.
Diet: Regular and Low Fat
Additional Diets: If issues with bloating or diarrhea follow a low-fat diet
Activity: No strenuous activity
Additional Activity: No heavy lifting (>20 lbs) or strenuous activities for 3-4 weeks postoperatively
Bathing Restrictions: OK to Shower
Wound Care: Keep incisions clean and dry. Glue will flake off in 2 to 3 weeks. Stitches will dissolve. Use ice to the abdomen to reduce any bruising or swelling.
Referrals:
Ev Collins MD [Family Provider, Internal Medicine]
Daniel Harrell MD [Active, Urology] - in one to two weeks
Shabbir Denise MD [Active, Surgical] - in two to four weeks
Prescriptions:
New
tamsulosin [Flomax] 0.4 mg capsule
0.4 mg PO DAILY Qty: 10 0RF
Continued
pantoprazole 40 mg tablet,delayed release (DR/EC)
40 mg PO BID
gabapentin 100 mg Capsule
300 mg PO BID
potassium chloride 20 mEq Tablet Extended Release
20 meq PO BID
magnesium oxide 400 mg magnesium Tablet
400 mg PO DAILY
atorvastatin 80 mg tablet
80 mg PO DAILY
torsemide 20 mg tablet
40 mg PO BID
isosorbide mononitrate 30 mg Tablet Extended Release 24 Hr
30 mg PO DAILY@1400
isosorbide mononitrate 60 mg Tablet Extended Release 24 Hr
60 mg PO DAILY
ipratropium-albuterol 0.5 mg-3 mg(2.5 mg base)/3 mL solution for nebulization
3 ml inhalation R QID
midodrine 5 mg tablet
5 mg PO TID
nitroglycerin 0.4 mg tablet, sublingual
0.4 mg sublingual [id number] PRN (Reason: chest pain)
aspirin 81 MG tablet,delayed release (DR/EC)
81 mg PO DAILY Qty: 30 0RF
duloxetine 30 mg Capsule,Delayed Release(Dr/Ec)
30 mg PO DAILY Qty: 0 0RF
ondansetron 4 mg Tablet,Disintegrating
4 mg PO Q6HPRN PRN (Reason: nausea)
spironolactone 50 mg Tablet
100 mg PO DAILY
lactulose 10 gram/15 mL solution
20 g PO TID
Discharge Orders:
Discharge Patient (As Directed); Ordered 02/14/25
Ordered By: Rosa Lincoln
Discharge Date and Time
Discharge Date/Time: 02/14/25 11:56
Print Language: YORUBA
== END 2025-02-14 11:56 | disposition home health service (06) | DRG 418 ==
LOC: 4 WEST ACU 16:41
PROVIDERS: Internal Medicine; Physician Assistant; Registered Nurse; Surgery; ADMITTING PHYSICIAN Hospitalist; ATTENDING PHYSICIAN Internal Medicine; CONSULT PHYSICIAN Surgery; EMERGENCY PHYSICIAN Emergency Medicine; FAMILY PHYSICIAN Hospitalist
PROC: 0FT44ZZ Resection of Gallbladder, Percutaneous Endoscopic Approach (ICD-10-PCS; 2025-02-07)
PROC: BF131ZZ Fluoroscopy of Gallbladder and Bile Ducts using Low Osmolar Contrast (ICD-10-PCS; 2025-02-07)
DX: K80.12 Calculus of gallbladder with acute and chronic cholecystitis without obstruction (principal); D62 Acute posthemorrhagic anemia; E87.1 Hypo-osmolality and hyponatremia; I25.112 Atherosclerotic heart disease of native coronary artery with refractory angina pectoris; I50.32 Chronic diastolic (congestive) heart failure; N17.9 Acute kidney failure, unspecified; K91.89 Other postprocedural complications and disorders of digestive system; K56.7 Ileus, unspecified; K91.61 Intraoperative hemorrhage and hematoma of a digestive system organ or structure complicating a digestive system procedure; Y83.8 Other surgical procedures as the cause of abnormal reaction of the patient, or of later complication, without mention of misadventure at the time of the procedure; R33.9 Retention of urine, unspecified; E87.5 Hyperkalemia; K59.00 Constipation, unspecified; I11.0 Hypertensive heart disease with heart failure; E78.00 Pure hypercholesterolemia, unspecified; E86.0 Dehydration; K70.31 Alcoholic cirrhosis of liver with ascites; I95.1 Orthostatic hypotension; F32.A Depression, unspecified; F41.9 Anxiety disorder, unspecified; J44.9 Chronic obstructive pulmonary disease, unspecified; K21.9 Gastro-esophageal reflux disease without esophagitis; I25.5 Ischemic cardiomyopathy; D72.829 Elevated white blood cell count, unspecified; D69.59 Other secondary thrombocytopenia; Z95.1 Presence of aortocoronary bypass graft; I25.2 Old myocardial infarction; Z87.891 Personal history of nicotine dependence; Z95.5 Presence of coronary angioplasty implant and graft; Z79.82 Long term (current) use of aspirin
CPT/HCPCS: 88304; 74022; 74300; 76000; 76770; 80053; 81003; 81015; 82248; 83605; 83690; 85025; 85027; 85610; 87040; 93005; 94640; 97116; 97163; 97166; 97530; 97535; A4300

== ENCOUNTER 2025-02-19 05:09 | Emergency (ER) | payer MEDICARE, SELFPAY ==
[2025-02-19 05:14] VITALS: BP 112/60
--- NOTE | 2025-02-19 06:51 | ED.GENMED ---
History of Present Illness
<Steff Motta PA-C - Last Filed: 02/19/25 08:52>
General
Chief Complaint: Post Operative Problem(s)
Source: patient and records
Exam Limitations: none
Time Seen by Provider: 02/19/25 06:37
History of Present Illness
History of Present Illness:
69yoM with a history of cirrhosis, cardiomyopathy with last EF 55-60%, coronary artery disease, hypertension, hyperlipidemia presenting for evaluation of drainage from his surgical incisions. Patient underwent cholecystectomy on 02/07/25 with
Camelia. He was doing well up until last night when he started to notice that his shirt was wet. He thought he may have spilled a drink on himself initially but then noticed that his surgical incisions were leaking. He had to change his T-shirt
4x throughout the night. He has a history of ascites and has required paracentesis in the past. He had some abdominal distention yesterday but has improved today. He has some abdominal discomfort which has been stable since his surgery. He
denies any shortness of breath, fevers, vomiting.
Past History
<Steff Motta PA-C - Last Filed: 02/19/25 08:52>
Past History
ED Past Medical History: CAD, COPD (Ex-smoker), HTN, Hypercholesterolemia and Other (Ascites, cirrhosis)
ED Past Surgical History: Cardiac (According to PCP notes, patient had C 10/2022, attempted wiring of the LAD (75% mid LAD and 90% apical LAD stenosis), aborted secondary to severe tortuosity and bleeding of the SIFUENTES graft, on medical therapy.,
Echo o 11/2023 with LV EF of 65 to 70% mild to moderate aortic regurg. ), Orthopedic and Other (Hernia repair. Refractory angina on Renexa)
Social History
Tobacco: Former smoker
Alcohol: Former (Has not drank for 4 months)
Drug: None
Personal: Single
Living: other (With former partner)
Employment: Retired
Phy Exam
<Steff Motta PA-C - Last Filed: 02/19/25 08:52>
General Physical Exam
General Presentation: well appearing and no apparent distress
General Skin: warm and dry
General Habitus: normal
General Mental: alert
ENT Exam
ENT Exam: normocephalic
Pulmonary Exam
Pulmonary Exam: no respiratory distress
Gastrointestinal Exam
Gastrointestinal Exam: non tender, soft, non distended and other (There is clear ascitic fluid leaking from the R lateral surgical incision. Abdomen soft, non-tender. No significant distention present.)
Neurological Exam
Neurological Exam: alert
Tl Coma Scale
Eye Opening: Spontaneous
Verbal Response: Oriented
Motor Response: Obeys Commands
GCS Total Score: 15
Skin Exam
Skin Exam: warm/dry
Psychiatric Exam
Psychiatric Exam: normal mood/affect
Course
<Steff Motta PA-C - Last Filed: 02/19/25 08:52>
Vital Signs
Initial and Last Documented VS:
Initial Vital Signs
Temp Pulse Resp BP Pulse Ox
98.2 F 80 22 112/60 98
02/19/25 05:14 02/19/25 05:14 02/19/25 05:14 02/19/25 05:14 02/19/25 05:14
Last Documented Vital Signs
Temp Pulse Resp BP Pulse Ox
98.6 F 77 16 106/65 96
02/19/25 08:00 02/19/25 08:00 02/19/25 08:00 02/19/25 08:00 02/19/25 08:00
<Kenji Garcia DO - Last Filed: 02/19/25 07:37>
Vital Signs
Initial and Last Documented VS:
Initial Vital Signs
Temp Pulse Resp BP Pulse Ox
98.2 F 80 22 112/60 98
02/19/25 05:14 02/19/25 05:14 02/19/25 05:14 02/19/25 05:14 02/19/25 05:14
Last Documented Vital Signs
Temp Pulse Resp BP Pulse Ox
98.6 F 77 16 106/65 96
02/19/25 08:00 02/19/25 08:00 02/19/25 08:00 02/19/25 08:00 02/19/25 08:00
<Steff Motta PA-C - Last Filed: 02/19/25 08:52>
MDM/Problems Addressed
Differential Diagnosis Includes:
69yoM here with leakage from surgical incision. S/p cholecystectomy on 02/07. Started with clear drainage from incision last night. Hx of cirrhosis. On exam, there is clear fluid leaking from the R lateral surgical incision which appears to be
ascites. No clinical evidence of infection. Abdomen is soft without significant distention. No indication for paracentesis.
General surgery consulted and Dr. Fonseca placed a horizontal mattress to the incision. Patient has a postop appt with Dr. Denise on 03/02 and suture will be removed at that time. Patient discharged in stable condition.
<Steff Motta PA-C - Last Filed: 02/19/25 08:52>
*Critical Care Note
Total Time (30-74mins, 75-104mins- exclusive of procedures): Not Applicable
ED Attending Note
<Steff Motta PA-C - Last Filed: 02/19/25 08:52>
-
Portions of this chart may have been created with voice recognition software.� Occasional wrong word or��sound alike� substitutions may have occurred due to the inherent limitations of voice recognition software.
<Kenji Garcia DO - Last Filed: 02/19/25 07:37>
ED Attending Note
Patient seen and examined by attending physician: Yes
I performed the substantive portion of visit, reviewed & personally made and approve the management plan that is documented in note by myself or AKANKSHA.: Yes
ED Attending Note:
I evaluated the patient at bedside. Dr. Fonseca placing suture in affected area. To follow-up with Dr. Denise.
Discharge Plan
Departure
Patient Disposition: Home (Routine Discharge)
Date of Disposition: 02/19/25
Time of Disposition: 07:35
Patient with high blood pressure during this ER visit?: No
Discharge Problem:
Wound dehiscence, surgical
Instructions: Stitches and alicia
Prescriptions:
No Action
pantoprazole 40 mg tablet,delayed release (DR/EC)
40 mg PO BID
gabapentin 100 mg Capsule
300 mg PO BID
potassium chloride 20 mEq Tablet Extended Release
20 meq PO BID
magnesium oxide 400 mg magnesium Tablet
400 mg PO DAILY
atorvastatin 80 mg tablet
80 mg PO DAILY
torsemide 20 mg tablet
40 mg PO BID
isosorbide mononitrate 30 mg Tablet Extended Release 24 Hr
30 mg PO DAILY@1400
isosorbide mononitrate 60 mg Tablet Extended Release 24 Hr
60 mg PO DAILY
ipratropium-albuterol 0.5 mg-3 mg(2.5 mg base)/3 mL solution for nebulization
3 ml inhalation R QID
midodrine 5 mg tablet
5 mg PO TID
nitroglycerin 0.4 mg tablet, sublingual
0.4 mg sublingual [id number] PRN (Reason: chest pain)
aspirin 81 MG tablet,delayed release (DR/EC)
81 mg PO DAILY Qty: 30 0RF
duloxetine 30 mg Capsule,Delayed Release(Dr/Ec)
30 mg PO DAILY Qty: 0 0RF
ondansetron 4 mg Tablet,Disintegrating
4 mg PO Q6HPRN PRN (Reason: nausea)
spironolactone 50 mg Tablet
100 mg PO DAILY
lactulose 10 gram/15 mL solution
20 g PO TID
tamsulosin [Flomax] 0.4 mg capsule
0.4 mg PO DAILY Qty: 10 0RF
Referrals:
Ev Collins MD [Family Provider, Internal Medicine]
Activity Restrictions/Additional Instructions:
Dr. Fonseca placed suture in the affected area. Follow-up with Dr. Denise. Return here if worse or other concerns.
Interventions
Interventions:
*Risk Screen - Suicide Last Done: 02/19/25 05:14
*General Assessment Last Done: 02/19/25 06:10
*Neglect/Abuse Screening Last Done: 02/19/25 05:14
*ED- Fall Risk Assessment Last Done: 02/19/25 06:10
*ED COVID-19 Vaccine History Last Done: 02/19/25 08:00
*Nursing Disposition Last Done: 02/19/25 08:00
ED-Skin Assessment Last Done: 02/19/25 08:00
Discharge Date and Time
Discharge Date/Time: 02/19/25 08:00
Print Language: [id number]
--- NOTE | 2025-02-19 07:42 | CON.GS ---
Consultation
-
Date/Time Consultation Requested: 02/19/2025 7:30 AM
Date/Time Consultation Performed: 02/19/2025 7:45 AM
Requesting Provider: Emergency department
Performing Provider: Dr. Fonseca
Reason for Consultation: Leaking incision
Medical History
-
Chief Complaint: Leaking incision site
History of Present Illness:
This is a 69-year-old male with known cirrhosis and ascites with a recent admission for acute on chronic cholecystitis status post laparoscopic cholecystectomy with Dr. Denise on 02/07/2025 who was recovering well at home but started having clear
discharge from his right lateral incision that began yesterday afternoon. The patient denies Fever, Chest Pain, Shortness Of Breath, Nausea, Vomiting, changes in urinary and bowel habits, unintentional weight loss, jaundice, icterus, acolic stools.
Past Medical History
Past Medical History: Reviewed & Noncontributory and Other (Cirrhosis, ascites)
Past Surgical History: Cholecystectomy
Social History
Alcohol: Former
Family History
Family History: Reviewed & Not Pertinent
Allergies / Home Medications
Allergy/AdvReac Type Severity Reaction Status Date / Time
No Known Allergies Allergy Verified 02/19/25 05:16
�Medication �Instructions �Recorded �Confirmed �Type
pantoprazole 40 mg tablet,delayed 40 mg PO BID Gastrointestinal Issue 12/01/23 02/06/25 History
release
gabapentin 100 mg capsule 300 mg PO BID pain 09/01/24 02/06/25 History
potassium chloride 20 mEq 20 meq PO BID Electrolyte Repletion 09/01/24 02/06/25 History
tablet,extended release
magnesium oxide 400 mg PO DAILY Supplement 10/04/24 02/06/25 History
atorvastatin 80 mg tablet 80 mg PO DAILY High Cholesterol 12/13/24 02/06/25 History
ipratropium 0.5 mg-albuterol 3 mg 3 ml inhalation R QID 12/13/24 02/06/25 History
(2.5 mg base)/3 mL nebulization Lung/Breathing Issues
soln
isosorbide mononitrate 30 mg 30 mg PO DAILY@1400 Heart 12/13/24 02/06/25 History
tablet,extended release 24 hr Disease/Condition
isosorbide mononitrate 60 mg 60 mg PO DAILY Heart 12/13/24 02/06/25 History
tablet,extended release 24 hr Disease/Condition
torsemide 20 mg tablet 40 mg PO BID Fluid 12/13/24 02/06/25 History
Retention/Swelling
midodrine 5 mg tablet 5 mg PO TID Ascites 01/04/25 02/06/25 History
nitroglycerin 0.4 mg sublingual 0.4 mg sublingual [id number] PRN 01/04/25 02/06/25 History
tablet chest pain
aspirin 81 mg tablet,delayed 81 mg PO DAILY Blood Clot 01/05/25 02/06/25 Rx
release Prevention/Tx #30 tabs
duloxetine 30 mg capsule,delayed 30 mg PO DAILY Pain #0 caps 01/05/25 02/06/25 Rx
release
lactulose 10 gram/15 mL oral 20 g PO TID Liver Issues 02/06/25 02/06/25 History
solution
ondansetron 4 mg disintegrating 4 mg PO Q6HPRN PRN nausea 02/06/25 02/06/25 History
tablet
spironolactone 50 mg tablet 100 mg PO DAILY Fluid 02/06/25 02/06/25 History
Retention/Swelling
tamsulosin 0.4 mg capsule (Flomax) 0.4 mg PO DAILY #10 caps 02/14/25 Rx
Review of Systems
-
History Source: Patient
All other systems: Negative unless noted
A 10 point review of systems was completed, and was negative except as per HPI.
Physical Exam
Vital Signs
Temp Pulse Resp BP Pulse Ox
98.2 F 80 22 112/60 98
02/19/25 05:14 02/19/25 05:14 02/19/25 05:14 02/19/25 05:14 02/19/25 05:14
Physical Exam
General: Well Developed
HEENT: Normocephalic
Respiratory: Non Labored Respirations
GI: Soft, Non Tender, Distended and Other (Positive fluid wave. Leaking ascites from his right lateral incision. No erythema or concern for infection. All of the other incisions looked clean dry and intact.)
Neuro: AO x 3
Psych: Calm
Data Reviewed
-
Total Time Spent with Patient (in minutes): 25
Assessment / Plan
-
This is a 69-year-old male who is roughly 2 weeks out from a laparoscopic cholecystectomy for cholecystitis in the setting of known liver cirrhosis and ascites now with expected leaking ascites from his right lateral incision.
Under local a horizontal mattress suture was placed to occlude the incision (see below)
The patient already has follow-up with Dr. Denise in the next week or 2 at which point the suture should be removed.
No indication for surgical admission, dispo per ED
Bedside procedure
A team time-out was performed confirming the location/laterality of the procedure, consent and allergies reviewed.
Location: Right upper quadrant
Dimensions: 5 cm
Local: 1% Lidocaine
Label Tacker: None
The skin was cleaned with alcohol and anesthetized with lidocaine. A horizontal mattress suture was placed across the incision with a 2-0 nylon suture with the tails cut long. No specimens were sent to Pathology/Culture. The patient tolerated the
procedure well, discharge instructions reviewed and all questions were answered.
[2025-02-19 08:00] VITALS: BP 106/65
== END 2025-02-19 08:00 | disposition home or self-care (01) ==
LOC: EMR 05:09
PROVIDERS: EMERGENCY PHYSICIAN Emergency Medicine; FAMILY PHYSICIAN Hospitalist
DX: T81.31XA Disruption of external operation (surgical) wound, not elsewhere classified, initial encounter (principal); R14.0 Abdominal distension (gaseous); X58.XXXA Exposure to other specified factors, initial encounter; K74.60 Unspecified cirrhosis of liver; I42.9 Cardiomyopathy, unspecified; I25.10 Atherosclerotic heart disease of native coronary artery without angina pectoris; E78.00 Pure hypercholesterolemia, unspecified; I10 Essential (primary) hypertension; R18.8 Other ascites; J44.9 Chronic obstructive pulmonary disease, unspecified; Z98.890 Other specified postprocedural states; Z87.891 Personal history of nicotine dependence; Z90.49 Acquired absence of other specified parts of digestive tract
CPT/HCPCS: 99283; 12001

== ENCOUNTER → 2025-03-22 07:18 | Outpatient (REF) | payer MEDICARE, SELFPAY ==
[2025-03-22 07:30] VITALS: BP 118/72; BP_SYST 73
[2025-03-22 08:34] VITALS: BP 115/67; BP_SYST 67
[2025-03-22 08:52] VITALS: BP 115/67
[2025-03-22 09:31] LABS: Body Fluid Second Tech EM
== END ==
LOC: RADI 07:18
PROVIDERS: ATTENDING PHYSICIAN Hospitalist
DX: R18.8 Other ascites (principal)
CPT/HCPCS: 49083; 89051

== ENCOUNTER → 2025-04-06 09:48 | Outpatient (REF) | payer MEDICARE, SELFPAY ==
[2025-04-06 09:55] VITALS: BP 107/67; BP 124/71; BP_SYST 87
[2025-04-06 11:05] VITALS: BP 107/67; BP 124/71; BP_SYST 87
[2025-04-06 11:44] LABS: Body Fluid Second Tech SS
== END ==
LOC: RADI 09:48
PROVIDERS: ATTENDING PHYSICIAN Hospitalist
DX: R18.8 Other ascites (principal)
CPT/HCPCS: 49083; 89051

== ENCOUNTER 2025-04-06 11:23 | Outpatient (RCR) | payer MEDICARE, SELFPAY ==
[2025-04-06 11:35] VITALS: BP 117/61
[2025-04-06 11:41] VITALS: BP 117/61
[2025-04-06] MEDS: FLEXBUMIN 100 IV (11:41)
[2025-04-06 13:13] VITALS: BP 100/56
[2025-04-06] MEDS: FLEXBUMIN 50 IV (13:14)
[2025-04-06 14:05] VITALS: BP 96/57
== END 2025-04-20 23:59 | disposition home or self-care (01) ==
LOC: OID 11:23
PROVIDERS: ATTENDING PHYSICIAN Hospitalist
DX: K74.60 Unspecified cirrhosis of liver (principal); R10.11 Right upper quadrant pain
CPT/HCPCS: 96365; 96366; P9047

== ENCOUNTER 2025-04-07 20:59 | Inpatient (IN) | payer MEDICARE, SELFPAY ==
[2025-04-07 15:56] VITALS: BP 128/67
[2025-04-07 16:18] LABS: Hematocrit 33.0 % (39.0-52.0); Hemoglobin 11.0 g/dL (13.0-18.0); Mean Corp Hgb Conc. 33.3 g/dL (33.0-37.0); Mean Corpuscular Volume 98.5 fL (80.0-94.0); Nucleated Red Blood Cells % 0 % (-); Platelet Count 143 10^3/uL (130-400); Red Cell Dist. Width 14.9 % (11.5-14.5)
[2025-04-07 16:34] LABS: ALT (SGPT) 44 U/L (0-50); AST (SGOT) 55 U/L (17-59); Albumin 3.2 g/dl (3.5-5.0); Alkaline Phosphatase 163 U/L (38-126); Blood Urea Nitrogen 16 mg/dl (9-20); Calcium 8.9 mg/dl (8.4-10.2); Carbon Dioxide 20 mmol/L (22-30); Chloride 104 mmol/L (98-107); Glucose 144 mg/dl (70-99); Potassium 5.1 mmol/L (3.5-5.1); Sodium 131 mmol/L (135-145); Total Protein 6.1 g/dl (6.3-8.2); eGFR > 60.00
--- NOTE | 2025-04-07 19:25 | ED.GENMED ---
History of Present Illness
General
Chief Complaint: Abdominal Pain
Time Seen by Provider: 04/07/25 18:23
History of Present Illness
History of Present Illness:
69-year-old male with history of nonalcoholic fatty liver disease and cirrhosis with recurrent ascites presents to the emergency department for evaluation of abdominal distention and pain as well as abdominal redness. He underwent his routine
paracentesis yesterday at which time 5 L of chylous fluid was drained. Subsequent cell count was benign. He returns today due to rapid reaccumulation of fluid/abdominal distention and also notes redness and pain to the abdomen. No fevers or
chills.
Past History
Past History
ED Past Medical History: CAD, COPD (Ex-smoker), HTN, Hypercholesterolemia and Other (Ascites, cirrhosis)
ED Past Surgical History: Cardiac (According to PCP notes, patient had LHC 10/2022, attempted wiring of the LAD (75% mid LAD and 90% apical LAD stenosis), aborted secondary to severe tortuosity and bleeding of the SIFUENTES graft, on medical therapy.,
Echo o 11/2023 with LV EF of 65 to 70% mild to moderate aortic regurg. ), Orthopedic and Other (Hernia repair. Refractory angina on Renexa)
Social History
Tobacco: Former smoker
Alcohol: Former (Has not drank for 4 months)
Drug: None
Personal: Single
Living: other (With former partner)
Employment: Retired
Review of Systems
Review of Systems
Allergies reviewed?: Yes
All Other Systems: ROS reviewed and negative except as documented in HPI and ROS
Phy Exam
Physical Exam
Physical Exam:
GEN: Well appearing, NAD, WDWN
HEENT: Oral mucosa moist, no scleral icterus
Cardiac: Regular rate
Lung: No respiratory distress, no tachypnea
Abdomen: Significant abdominal distention with diffuse erythema. There is active leak of ascitic fluid to the right lower quadrant from puncture site yesterday
MSK: No gross deformity or injuries
Skin: Good color, no pallor or jaundice, no rashes
Neuro: AO x3, moves all extremities freely
Psych: Calm, cooperative
Course
Orders/Labs/Results
Orders:
Orders
04/07/25 Dinner
Regular
04/07/25 16:04
Complete Blood Count/With Diff Urgent
Comprehensive Metabolic Panel Urgent
04/07/25 19:25
CefTRIAXone [Rocephin] 2,000 mg IV NOW STA
HYDROmorphone [Dilaudid] 0.5 mg IV NOW STA
04/07/25 19:44
Sterile Water [Sterile Water For Injection] 20 ml .ROUTE .STK-MED
04/07/25 20:21
Admit/Transfer Patient As Directed
Co-Sign Provider:
Level of Care: Inpatient admission
Assign to:: Medical/Surgical
Physician / Group: dee dee smith
Diagnosis: abd wall cellulitis s/p paracentesis non etoh cirrhosis
Reason for Hospitalization: abd wall cellulitis s/p paracentesis non etoh cirrhosis
Expected length of stay greater than two midnights?: Yes
ELOS- Estimated Length of Stay in days: 4
I certify the patient meets the requirements for IP care: Yes
Code Status As Directed
Resuscitation Status: Full Code
04/07/25 20:22
PRN Pain Medication Management As Directed
May give lesser potent ordered pain med per pt: Yes
preference::
Protocol:: Medication orders for pain may be administered in a
manner that supports deferring to patient preference
when the pt is:
- Requesting an ordered lesser potent pain medication.
Least to most potent pain medications are defined
as: acetaminophen < NSAID < tramadol < opioids
(morphine, oxycodone, hydromorphone).
- Requesting a lesser dose of the same medication IF
ORDERED.
- Requesting a less intrusive route of administration
if both routes are prescribed by the provider (PO <
IV).
04/07/25 22:30
Midodrine [ProAmatine] 10 mg PO TID @ 0800,1200,1700
04/07/25 22:30
Activity As Directed
Activity Level: As Tolerated
Bladder Scan As Directed
Follow Bladder Retention/Intermittent Cath Algorithm?: Yes
PRN if no void in __ hours: 6
Frequency: Per Retention Algorithm
If Bladder Scan Result >: 400
then:: Straight cath
Intake/ Output As Directed
Frequency: Per unit guidelines
Pneumatic Compression Sleeves As Directed
Type: Knee high
Straight Cath As Directed
Frequency: Per Retention Algorithm
Additional Instructions: straight cath as needed per acute urinary retention algorithm for 24 hrs
Additional Instructions: for bladder scan greater than 400 mL
Vital Signs As Directed
Frequency: Per unit guidelines
Weight As Directed
Frequency: Daily
DX Deep Vein Thrombosis Video Routine
04/08/25 06:00
Complete Blood Count/With Diff IN AM
Comprehensive Metabolic Panel IN AM
04/08/25 08:00
Aspirin Low Dose EC [Aspir Low (Enteric Coated)] 81 mg PO DAILY
Duloxetine Delayed Release [Cymbalta Delayed Release] 30 mg PO DAILY
Ipratropium/Albuterol Sulfate [Duoneb] 3 ml INH R QID
Lactulose [Duphalac/Chronulac] 20 grams PO BID
Magnesium l-Lactate [Mag-Tab Sr] 84 mg PO DAILY
Pantoprazole [Protonix] 40 mg PO BID
Rosuvastatin Calcium [Crestor] 20 mg PO DAILY
Tamsulosin [Flomax] 0.4 mg PO DAILY
04/08/25 20:00
CefTRIAXone [Rocephin] 1,000 mg IV Q24H
04/09/25 06:00
Complete Blood Count/With Diff IN AM
Comprehensive Metabolic Panel IN AM
04/10/25 06:00
Complete Blood Count/With Diff IN AM
Comprehensive Metabolic Panel IN AM
Abnormal Lab Results
04/07/25
16:04
RBC 3.35 L 10^6/uL
(4.70-6.10)
Hgb 11.0 L g/dL
(13.0-18.0)
Hct 33.0 L %
(39.0-52.0)
MCV 98.5 H fL
(80.0-94.0)
MCH 32.8 H pg
(27.0-31.0)
RDW 14.9 H %
(11.5-14.5)
Absolute Monos (auto) 0.8 H 10^3/uL
(0.1-0.6)
Lymphocytes % 18.8 L %
(20.5-51.1)
Monocytes % 10.6 H %
(1.7-9.3)
Sodium 131 L mmol/L
(135-145)
Carbon Dioxide 20 L mmol/L
(22-30)
Glucose 144 H mg/dl
(70-99)
Total Bilirubin 1.9 H mg/dl
(0.2-1.3)
Alkaline Phosphatase 163 H U/L
(38-126)
Total Protein 6.1 L g/dl
(6.3-8.2)
Albumin 3.2 L g/dl
(3.5-5.0)
04/07/25 16:04
04/07/25 16:04
Vital Signs
Initial and Last Documented VS:
Initial Vital Signs
Temp Pulse Resp BP Pulse Ox
98.6 F 103 18 128/67 99
04/07/25 15:56 04/07/25 15:56 04/07/25 15:56 04/07/25 15:56 04/07/25 15:56
Last Documented Vital Signs
Temp Pulse Resp BP Pulse Ox
98.0 F 89 16 118/75 100
04/07/25 23:25 04/07/25 23:25 04/07/25 23:25 04/07/25 23:25 04/07/25 23:25
MDM/Problems Addressed
MDM/Problems Addressed:
Diagnostic paracentesis was attempted by myself in the right lower quadrant however was unsuccessful. I was unable to access the peritoneal cavity. The patient's previous paracentesis site was noted to have consistent leak of ascitic fluid
throughout emergency department stay. Given the erythema to his abdomen we are concerned for possible cellulitis secondary to recent penetrating procedure versus peritonitis. Will cover broadly with antibiotics and admit for further workup
*Pulse Oximetry
SaO2: 99
Patient hypoxic: no
*Critical Care Note
Total Time (30-74mins, 75-104mins- exclusive of procedures): Not Applicable
ED Attending Note
-
Portions of this chart may have been created with voice recognition software.� Occasional wrong word or��sound alike� substitutions may have occurred due to the inherent limitations of voice recognition software.
Discharge Plan
Departure
Patient Disposition: Admit
Date of Disposition: 04/07/25
Time of Disposition: 19:30
Presentation/result/management discussed w/ accepting MD/DO: Hospitalist
Discharge Problem:
Abdominal distension
Interventions
Interventions:
*Risk Screen - Suicide Last Done: 04/07/25 15:57
*General Assessment Last Done: 04/07/25 20:03
*Neglect/Abuse Screening Last Done: 04/07/25 15:57
*ED- Fall Risk Assessment Last Done: 04/07/25 20:03
*ED COVID-19 Vaccine History Last Done: 04/07/25 20:03
*Nursing Disposition Last Done: 04/07/25 21:35
JW-Lfdysk-Svalvgqrwj Assessment Last Done: 04/07/25 20:02
Discharge Date and Time
Discharge Date/Time: 04/07/25 21:51
--- NOTE | 2025-04-07 19:41 | HPS.HSE ---
Family Physician
-
Family Physician:
Chief Complaint
-
Abdominal bloating, erythema
History of Present Illness
69-year-old male with history of nonalcoholic fatty liver disease/cirrhosis with recurrent ascites. He reportedly had paracentesis yesterday with removal of 5 L of fluid he returns today due to abdominal distention with bloating and oozing from the
insertion site along with erythema. He denies fever, chills, chest pain, palpitations, cough, shortness of breath, nausea, vomiting, diarrhea. He reports this is his approximate 6 to seventh paracentesis in the last 2.5 months he is not a
candidate for liver transplant due to his heart. He states he has only voided once a day for the past 3 days his PCP held his spironolactone 50 mg twice daily along with his Flomax 0.4 mg daily. He has past medical history of nonalcoholic fatty
liver disease, cirrhosis requiring paracentesis, thrombocytopenia secondary to cirrhosis, CAD/cardiac stent, COPD, ex-smoker, October 2022 attempted wiring of LAD 75% mid LAD and 90% apical LAD stenosis aborted procedure secondary to severe
tortuosity and bleeding of the SIFUENTES graft is currently on medical therapy, mild to moderate aortic regurg, HTN,/orthostatic hypotension, depression, anxiety, GERD, history urinary retention January 2025.
Medical History
Past Medical History
Past Medical History: Reports Other
Additional Past Medical History:
nonalcoholic fatty liver disease, cirrhosis requiring paracentesis
thrombocytopenia secondary to cirrhosis
CAD/cardiac stent
COPD
ex-smoker
October 2022 attempted wiring of LAD 75% mid LAD and 90% apical LAD stenosis aborted procedure secondary to severe tortuosity and bleeding of the SIFUENTES graft is currently on medical therapy,
mild to moderate aortic regurg
HTN,/orthostatic hypotension
depression
anxiety
GERD
history urinary retention January 2025
Hypertension, hyperlipidemia, coronary artery disease, [place],
Past Surgical History: Reports Other
Additional Past Surgical History:
Coronary artery bypass graft, cardiac stent,, limited, right knee, excision of below distal, SMA stent
Laparoscopic cholecystectomy Dr. Claros 02/06/2025
Social History
Tobacco: Former Smoker
Alcohol: Former
Drug: None
Personal: Other (Lives with ex girlfriend emergency contact Yolis)
Living: With Family (Lives with ex girlfriend emergency contact Yolis)
Employment: Disabled
Family History
Family History: Other (Mother CHF, father in [place] War)
Allergies / Home Medications
Allergies reflects when Allergies were last updated in [employer].
Home Medications with original date entered in [employer]
Allergy/Medication List:
Allergies
Allergy/AdvReac Type Severity Reaction Status Date / Time
No Known Allergies Allergy Verified 04/06/25 14:46
Home Medications
pantoprazole 40 mg tablet,delayed release 40 mg PO BID Gastrointestinal Issue 12/01/23
potassium chloride 20 mEq tablet,extended release 20 meq PO BID Electrolyte Repletion 09/01/24
magnesium oxide 400 mg PO DAILY Supplement 10/04/24
ipratropium 0.5 mg-albuterol 3 mg (2.5 mg base)/3 mL nebulization soln 3 ml inhalation R QID Lung/Breathing Issues 12/13/24
midodrine 5 mg tablet 10 mg PO TID Ascites 01/04/25
nitroglycerin 0.4 mg sublingual tablet 0.4 mg sublingual [id number] PRN chest pain 01/04/25
aspirin 81 mg tablet,delayed release 81 mg PO DAILY Blood Clot Prevention/Tx #30 tabs 01/05/25
duloxetine 30 mg capsule,delayed release 30 mg PO DAILY Pain #0 caps 01/05/25
lactulose 10 gram/15 mL oral solution 20 g PO BID Liver Issues 02/06/25
spironolactone 50 mg tablet 50 mg PO BID Fluid Retention/Swelling 02/06/25
tamsulosin 0.4 mg capsule (Flomax) 0.4 mg PO DAILY #10 caps 02/14/25
Crestor 20 mg PO DAILY 04/07/25
Review of Systems
-
History Source: Patient
A 12 point ROS was completed and negative except as noted: Yes
Constitutional: Denies Fever or Chills
EENT: Denies Sore Throat or Runny Nose
Respiratory: Denies Cough or Trouble Breathing
Cardiac: Denies Chest Pain, Diaphoresis or Palpitations
Abdomen/GI: Reports Abdominal Pain (Generalized due to distention and erythema midline to right lower quadrant); Denies Nausea, Vomiting, Diarrhea or Constipated
: Denies Dysuria, Frequency, Flank Pain, Incontinence, Difficulty Voiding, Urgency, Bleeding or Dark Urine
Musculoskeletal: Reports Edema (+2 edema lower legs upper knees); Denies Joint Pain
Skin: Denies Itching or Rash
Neurological: Reports Weakness (Generalized); Denies Dizzy or Headache
Endocrine: Reports No Symptoms
Hematologic/Lymphatic: Reports No Symptoms
Psych: Reports Calm
Physical Exam
Vital Signs
Vital Signs
Temp Pulse Resp BP Pulse Ox
98.6 F 103 18 128/67 99
04/07/25 15:56 04/07/25 15:56 04/07/25 15:56 04/07/25 15:56 04/07/25 19:28
Physical Exam
General: Comfortable, Conversant and Pain; No Fever or Chills
HEENT: NormoCephalic, Anicteric, Moist mucous membranes, PERRLA, Bude Conjunctivae and No Ptosis
Respiratory: Clear; No Wheezes, Rales or Rhonchi
Cardiac: S1/S2, Peripheral Edema (+1 lower feet to bilateral upper knees) and JVD; No Murmur, Rub or Gallop
Breast: Deferred by me
GI: Normal Bowel Sounds, Distended (No tympany) and Other (Erythema midline to right lower quadrant at site of paracentesis suspect abdominal wall cellulitis)
Rectal: Deferred by Provider
Genito-urinary: Deferred by me
Musculoskeletal: No Clubbing, No Cyanosis and No Edema
Skin: Warm and Dry; No Rash or Jaundice
Neuro: AO x 3, No Motor Deficits, Nonfocal/grossly intact, Cranial Nerves Intact and No Sensory Deficits; No Slurred Speech, Facial Droop, Tremors or Sedated
Psych: Calm
Laboratory Results
-
04/07/25 16:04
04/07/25 16:04
Laboratory Results
Total Bilirubin 1.9 mg/dl (0.2-1.3) H 04/07/25 16:04
AST 55 U/L (17-59) 04/07/25 16:04
ALT 44 U/L (0-50) 04/07/25 16:04
Alkaline Phosphatase 163 U/L (38-126) H 04/07/25 16:04
Impression/Plan
-
Impression/plan:
Admit to MedSurg
#Abdominal wall cellulitis weeping serous fluid versus SBP
Nonalcoholic fatty liver disease, cirrhosis requiring paracentesis
Paracentesis yesterday 5 L 04/06/2025, prior 6 paracentesis in the last 2.5 months
- Consult IR for paracentesis patient states he was due for consideration of permanent drain placement, patient states he is not a transplant candidate due to his heart disease
-Continue lactulose 20 g p.o. 3 times daily
- HOLD spironolactone 100 mg daily(this has been on hold for past 3 days due to not pain), potassium chloride 20 mill equivalents twice daily
- IV Rocephin
Follow CBC, CMP
#History urinary retention January 2025
- Check bladder scan/bladder scan protocol
-Continue Flomax 0.4 mg daily
#Thrombocytopenia secondary to cirrhosis
Chronic anemia
Plt 143 stable,Hgb 11, MCV 98.5
#CAD/cardiac stent
Chronic angina
SMA stent October 2023
Patient takes nitro as needed used to be on Imdur
October 2022 attempted wiring of LAD 75% mid LAD and 90% apical LAD stenosis aborted procedure secondary to severe tortuosity and bleeding of the SIFUENTES graft is currently on medical therapy
2D echo 10/06/2024 EF 55 to 60% normal LVSF LVS no wall wall abnormalities mild/moderate AR
#COPD
#Oc-irfrrs-jiafln 28 years 1 pack a day stopped age 64
Mild to moderate aortic regurg
#HTN/orthostatic hypotension
- Continue midodrine 20 mg p.o. 3 times daily
#Depression
#Anxiety
- Continue Cymbalta 30 mg daily
#GERD
- Continue Protonix 40 mg twice daily
DVT prophylaxis
SCDs
Full code
[2025-04-07] MEDS: ROCEPHIN 2000 MG IV (19:53)
[2025-04-07] MEDS: DILAUDID 0.5 MG IV (19:53)
[2025-04-07 20:02] VITALS: BP 97/64
--- NOTE | 2025-04-07 20:32 | W.PN.UPDATE ---
Update Note
Progress Note Update
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 I agree the findings mentioned physical. I concur with assessment plan unless stated otherwise.
Briefly, this is a 69-year-old with nonalcoholic steatohepatitis with cirrhosis complicated by frequent large-volume ascites, ischemic cardiomyopathy with depressed EF, not a candidate for revascularization, not currently candidate for liver
transplantation who presents to the emergency department with ongoing abdominal pain status post therapeutic paracentesis yesterday.
Patient reported that's been having frequent paracentesis for the last several months. Initially was getting them every 1 to 2 weeks but now he is getting them about every 5 days. He has been having abdominal pain and difficulty with breathing for
the last 4 to 5 days. Reports abdominal bloating. Denies any fevers or chills. He had a therapeutic paracentesis that was scheduled done yesterday and they said there was a large volume that was removed. He states he initially felt better but
soon after started having abdominal pain. He still continues to deny fever. He denies any nausea vomiting. He denies any melena or hematochezia. He denies any confusion. He states that he has had decreased urine output for the last 3 days and
is diuretic has been held. He does note increased lower extremity edema which seems to be at baseline.
In the emergency department patient was afebrile, blood pressure was 128/60 with a pulse of 103 and was satting 99% on room air.
CBC was unremarkable with no leukocytosis. Electrolytes were normal except for a sodium of 131, BUN/creatinine were stable at 16 and 1.1. Total bilirubin was 1.9 and alk phos 163.
On my examination the patient does have distended abdomen but no tympany. There was an attempted bedside paracentesis which failed. Patient is tender to palpation and there is significant extensive erythema around the insertion site. Suspect
abdominal skin cellulitis but cannot rule out SBP. Given concern for hepatorenal will have to manage presumptively for SBP.
Admitted to [facility]
IR consulted for diagnostic paracentesis
In the meantime, will start ceftriaxone for SBP coverage as well as for cellulitis
MRSA swab
Pain control
No indication for acute liver failure at this time, hold off GI consult
Monitor ins and outs, daily weights
Bladder scan for urinary retention (reports minimal urine output in the last 2 -3 days), creatinine at baseline.
Restart diuretics if kidney function stable
DVT prophylaxis�heparin subcu
CODE STATUS�full code
--- NOTE | 2025-04-07 21:00 | PTCARENOTE ---
Pt. admitted from E.D., AAO x 3, vs stable, fall risk with bed alarm intact, call morales within reach.
[2025-04-07 22:00] VITALS: BP 114/71; BMI 26.5
[2025-04-07 23:25] VITALS: BP 118/75
[2025-04-07] MEDS: MORPHINE SULFATE 1 MG IV (23:41)
[2025-04-07] MEDS: FLUSH (NSS) 1 FLUSH IV (23:42)
[2025-04-08] VITALS (18 sets, daily range): BP systolic 82–120; BP diastolic 43–72; BMI 26.4
[2025-04-08 05:47] LABS: Hematocrit 31.4 % (39.0-52.0); Hemoglobin 10.6 g/dL (13.0-18.0); Mean Corp Hgb Conc. 33.8 g/dL (33.0-37.0); Mean Corpuscular Volume 95.7 fL (80.0-94.0); Nucleated Red Blood Cells % 0 % (-); Platelet Count 123 10^3/uL (130-400); Red Cell Dist. Width 14.9 % (11.5-14.5)
[2025-04-08 06:13] LABS: ALT (SGPT) 42 U/L (0-50); AST (SGOT) 48 U/L (17-59); Albumin 2.6 g/dl (3.5-5.0); Alkaline Phosphatase 158 U/L (38-126); Blood Urea Nitrogen 15 mg/dl (9-20); Calcium 8.6 mg/dl (8.4-10.2); Carbon Dioxide 26 mmol/L (22-30); Chloride 105 mmol/L (98-107); Estimated Creatinine Clearance 71 ml/min; Glucose 100 mg/dl (70-99); Potassium 4.7 mmol/L (3.5-5.1); Sodium 132 mmol/L (135-145); Total Protein 5.3 g/dl (6.3-8.2); eGFR > 60.00
[2025-04-08] MEDS: DUONEB 3 ML INH (07:51)
[2025-04-08] MEDS: ASPIR LOW (ENTERIC COATED) 81 MG PO (08:50)
[2025-04-08] MEDS: CYMBALTA DELAYED RELEASE 30 MG PO (08:50)
[2025-04-08] MEDS: MAG-TAB SR 84 MG PO (08:51)
[2025-04-08] MEDS: PROTONIX 40 MG PO ×2 (08:51→21:05)
[2025-04-08] MEDS: FLOMAX 0.4 MG PO (08:51)
[2025-04-08] MEDS: CRESTOR 20 MG PO (08:52)
[2025-04-08] MEDS: DUPHALAC/CHRONULAC 20 GRAMS PO ×2 (08:52→22:36)
[2025-04-08] MEDS: DILAUDID 0.25 MG IV ×3 (10:16→16:32)
--- NOTE | 2025-04-08 10:17 | W.PN.HOSP.TC ---
Today's Communication/Plan
-
cont rocephin pending paracentesis
CT abd/pelvis
check lipase, lactate
pain mgmt
Assessment / Plan
Assessment / Plan
69yo M with PANDEY-induced liver cirrosis, anxiety, recurrent ascites, Hx of cholecystectomy in January 2025 came with severe R abdomina pain for past week. He had therapeutic paracentesis done on 04/06/25 with 5150 chylous fluid removed and not meeting
criteria for SBP. In ED found fluid leak with significant abd distension concerning for reaccumulation of the fluid. Attempt for paracentesis in ED was unsuccessful.
A/P:
#Severe R abdominal pain
started before recent paracentesis, doubt procedure complication
Check lactate and Lipase
CT abd/pelvis with severe pain
repeat paracentesis, since pain can be 2/2 fluid
pain mgmt
cont Ceftriaxone 2g q24h until repeated paracentesis
Patient is having BM and no signs of interstitial obstruction seen
#PANDEY with liver cirrhosis
#Cirrhosis induced hypotension
#BPH
#Hx of hepatic encephalopathy
#Anxiety
#ASCVD
cont home meds
#mild chronic anemia
#recurrent thrombocytopenia 2/2 liver cirrhosis
#Recurrent alk.phos elevation 2/2 cirrhosis s/p cholecystectomy
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
#chronic hyponatremia
2/2 liver cirrhosis
follow CMP
follow CBC
DVT ppx SCDs
Full code
I have spent at least 59min reviewing chart, test results, communication with consultants and providing direct patient care
Anticipated Discharge: > 48 hours
Subjective/Interval History
-
Date of Service: April 08, 2025
Objective Data
-
Labs:
Laboratory Results
04/08/25
05:07
WBC 5.8
Hgb 10.6 L
Hct 31.4 L
Plt Count 123 L
Sodium 132 L
Potassium 4.7
Chloride 105
Carbon Dioxide 26
BUN 15
Creatinine 1.0
Glucose 100 H
Calcium 8.6
Total Bilirubin 1.7 H
AST 48
ALT 42
Alkaline Phosphatase 158 H
Vital Signs:
Vital Signs
Temp Pulse Resp BP Pulse Ox
98.3 F 80 18 90/69 99
04/08/25 07:00 04/08/25 07:54 04/08/25 07:54 04/08/25 07:00 04/08/25 07:54
I&O
04/07/25 04/08/25 04/09/25
06:59 06:59 06:59
Output Total 250 / 250
Balance -250 / -250
--- NOTE | 2025-04-08 10:17 | CM ---
studio manager reviewed patient's chart and met with patient and patient lives with his significant other in a multilevel home, patient is independent with adl's and uses a cane with ambulation. Patient as a walker that he does not use.
PCP: Ev Collins
Pharmacy: [facility] in [place].
[2025-04-08 10:35] LABS: Lipase 225 U/L (23-300)
[2025-04-08] MEDS: DUONEB INH ×3 (10:49→18:12)
--- NOTE | 2025-04-08 13:01 | W.PN.UPDATE ---
Update Note
Progress Note Update
- Patient had large volume para done on 04/06 with drainage of greater than 5L
- Uncertain how much if any ascites he currently has. CT currently ordered - will review when completed.
[2025-04-08] MEDS: NITROSTAT (SUBLINGUAL) 0.4 MG SL (15:32)
--- NOTE | 2025-04-08 15:56 | W.PN.UPDATE ---
Update Note
Progress Note Update
patient with chest pain and HX f CAD s/p CABG. chest pain relieved by nitro. EKG without acute ST elevation. Trop pensing. Patient also with few episodes of vomiting, also can be a reason for chest pain
[2025-04-08] MEDS: ZOFRAN 4 MG IV (16:09)
--- NOTE | 2025-04-08 16:46 | CON.CAR ---
Consultation
Consultation Request
Date/Time Consultation Requested: 04/08/2025 4 PM
Date/Time Consultation Performed: 04/08/2025 4 PM
Requesting Provider: Hospitalist
Performing Provider: Dr. Peterson
Reason for Consultation: Chest pain
Medical History
-
History of Present Illness:
69-year-old male with cirrhosis, recurrent ascites, frequent paracenteses, coronary artery disease, coronary artery bypass grafting. Unsuccessful attempted PCI of the LAD distal to SIFUENTES graft touchdown 2022, medical therapy for obstructive coronary
disease (including 75% mid and 90% apical LAD stenosis) patient presents with abdominal pain. Apparently patient had a paracentesis 2 days ago and states he is continued to have abdominal pain since that time. Patient provided limited history.
Consult today for chest pain patient reported some midsternal chest pain was given 1 nitroglycerin with reported relief. When I initially went to see him he seemed to be sleeping and then when we woke him up he said he had chest pain and abdominal
pain he has diffuse abdominal pain and reports pain with light palpation abdomen is quite distended consistent with ascites he also reported some chest discomfort. I went out of the room to speak with his attending physician and when I returned he
was sleeping and when I had him woke up he said he felt better. ECG without ischemic changes
Patient currently on antibiotics to cover SBP and there is plan for repeat tap
Past medical history
Coronary artery disease
Coronary artery bypass grafting
Mid LAD 75% stenosis and apical 90% LAD stenosis which is medically treated after unsuccessful attempt at PCI through SIFUENTES graft 2022
Cirrhosis
GERD
Urinary retention
anxiety/Depression
Thrombocytopenia
Nonalcoholic fatty liver disease
Orthostatic hypotension chronic use of midodrine
Family History
Family History: Reviewed & Not Pertinent
Allergies / Home Medications
Allergy/AdvReac Type Severity Reaction Status Date / Time
No Known Allergies Allergy Verified 04/06/25 14:46
�Medication �Instructions �Recorded �Confirmed �Type
pantoprazole 40 mg tablet,delayed 40 mg PO BID Gastrointestinal Issue 12/01/23 04/07/25 History
release
potassium chloride 20 mEq 20 meq PO BID Electrolyte Repletion 09/01/24 04/07/25 History
tablet,extended release
magnesium oxide 400 mg PO DAILY Supplement 10/04/24 04/07/25 History
ipratropium 0.5 mg-albuterol 3 mg 3 ml inhalation R QID 12/13/24 04/07/25 History
(2.5 mg base)/3 mL nebulization Lung/Breathing Issues
soln
midodrine 5 mg tablet 10 mg PO TID Ascites 01/04/25 04/06/25 History
nitroglycerin 0.4 mg sublingual 0.4 mg sublingual [id number] PRN 01/04/25 04/07/25 History
tablet chest pain
aspirin 81 mg tablet,delayed 81 mg PO DAILY Blood Clot 01/05/25 04/07/25 Rx
release Prevention/Tx #30 tabs
duloxetine 30 mg capsule,delayed 30 mg PO DAILY Pain #0 caps 01/05/25 04/07/25 Rx
release
lactulose 10 gram/15 mL oral 20 g PO BID Liver Issues 02/06/25 04/07/25 History
solution
spironolactone 50 mg tablet 50 mg PO BID Fluid 02/06/25 04/06/25 History
Retention/Swelling
tamsulosin 0.4 mg capsule (Flomax) 0.4 mg PO DAILY #10 caps 02/14/25 04/07/25 Rx
Crestor 20 mg PO DAILY 04/07/25 04/07/25 History
Review of Systems
-
All other systems: Negative unless noted
Physical Exam
Vital Signs
Temp Pulse Resp BP Pulse Ox
98.3 F 80 18 105/75 99
04/08/25 07:00 04/08/25 07:54 04/08/25 07:54 04/08/25 15:32 04/08/25 07:54
Lab Results
04/08/25 05:07
04/08/25 05:07
Physical Exam
General: Other (Patient initially appeared comfortable and sleeping but then when I woke him up he had some abdominal pain as described.)
HEENT: Other (Mouth appears dry external nose and ear exam unremarkable)
Respiratory: Other (No wheezes rales or rhonchi)
Cardiac: Regular Rhythm
GI: Other (Abdomen is distended. Diffuse tenderness with palpation no masses detected.)
Musculoskeletal: Other (Bilateral lower extremity edema)
Skin: Warm
Neuro: Other (Sleeping but arousable and responding to questions)
Impression / Plan
-
.
Chest pain. Exact etiology unclear. Patient has a history of coronary artery disease and angina and periodically takes nitroglycerin. However his nitroglycerin use is infrequent. Patient currently with diffuse abdominal pain some of which may be
radiating up into the chest. However it is possible the patient is having some intermittent chest discomfort related to angina which could be further precipitated by physical stress and pain and intra-abdominal process. Assessment is challenging
in this patient who on the one hand reported chest pain but on the other hand appeared to be quite comfortable and sleeping when I went to see him. ECG without acute ischemic changes. Medical therapy limited due to blood pressure. Patient
currently chest pain-free note patient chronically on midodrine issues reviewed with hospitalist. Would suggest the following
- Check serial troponins
- Monitor on telemetry
- Transfer to IMU and if patient has recurrent chest discomfort then we can cautiously administer low-dose IV nitro
- Pain control and additional management of intra-abdominal process
.
Abdominal pain.
- Patient has abdominal distention and apparently has ascites
- Await full report from CT which was performed this afternoon
- Additional management being directed by hospitalist
- Patient on antibiotics to cover SBP
- Depending on results of CT patient may also have additional paracentesis to provide further symptom relief and also for additional diagnostic purposes
.
Coronary artery disease
- History of SIFUENTES to LAD
- Obstructive disease distal to LAD graft previous unsuccessful attempt at PCI of LAD plan for continued medical therapy
.
History of orthostatic hypotension
Cirrhosis
Anemia
Data Reviewed
-
EKG: Report Reviewed by me
Medical Tests (Nuc Med, Echo etc): Report Reviewed by me
Labs: Discussed with Physician
[2025-04-08 17:09] LABS: Troponin I < 0.012 ng/ml
[2025-04-08 19:52] LABS: Hepatitis C Antibody Negative (Negative)
[2025-04-08 19:53] LABS: Body Fluid Second Tech JK
[2025-04-08] MEDS: STERILE WATER FOR INJECTION 20 ML IV (21:04)
[2025-04-08] MEDS: NITROGLYCERIN PREMIX 250 IV (21:05)
[2025-04-08] MEDS: ROCEPHIN 2000 MG IV (21:05)
[2025-04-08 21:41] LABS: Troponin I < 0.012 ng/ml
[2025-04-08] MEDS: CARAFATE SUSPENSION 1 GM PO (23:11)
[2025-04-08] MEDS: ULTRAM 50 MG PO (23:11)
[2025-04-09] VITALS (51 sets, daily range): BP systolic 78–112; BP diastolic 37–83; BMI 25.4
--- NOTE | 2025-04-09 00:37 | PTCARENOTE ---
Received pt @ approx 2014 into room 2254 from [facility] [place] RN via wheelchair. pt oriented to room and call morales. pt placed on tele; SR, HR 90's. pt reports chest pain 5/10. EKG obtained, BP 112/63. Gloria Pepe, UNPAID INTERN made aware and Nitro gtt ordered.
Nitro gtt infusing at 2.5 mcg/min. pt reports right sided abdominal pain at paracentesis site and rates 4/10. UNPAID INTERN ordered Ultram. Administered per order--see NOV. Urinal at bedside. Fall precautions in place. Bed alarm on and audible. Educated pt to
call for assistance ambulating. Call morales within reach.
--- NOTE | 2025-04-09 00:56 | W.PN.UPDATE ---
Update Note
Progress Note Update
2030 On arrival to IVU nurse reporting ongoing 5/10 chest pain. Per cardiology note- may need low dose nitro gtt if continues. Pt with soft bp so will order 2.5mg/min nitro gtt to start.
After nitro infusing for 5 pt chest pain 3/10. trops remain negative. No ischemic changes to EKG. CT abd done earlier today shows upper abd acities and also poss gastritis. Possibility pain is related to this. Will give a dose of carafate.
Already on PPI bid
[2025-04-09 04:14] LABS: Hematocrit 28.4 % (39.0-52.0); Hemoglobin 9.5 g/dL (13.0-18.0); Mean Corp Hgb Conc. 33.5 g/dL (33.0-37.0); Mean Corpuscular Volume 96.9 fL (80.0-94.0); Nucleated Red Blood Cells % 0 % (-); Platelet Count 119 10^3/uL (130-400); Red Cell Dist. Width 15.0 % (11.5-14.5)
[2025-04-09 04:21] LABS: INR 1.21; PT 15.6 Sec (11.4-14.6)
[2025-04-09 04:22] LABS: APTT 35.6 Sec (23.4-35.0)
[2025-04-09 04:36] LABS: ALT (SGPT) 34 U/L (0-50); AST (SGOT) 39 U/L (17-59); Albumin 2.6 g/dl (3.5-5.0); Alkaline Phosphatase 145 U/L (38-126); Blood Urea Nitrogen 17 mg/dl (9-20); Calcium 8.6 mg/dl (8.4-10.2); Carbon Dioxide 23 mmol/L (22-30); Chloride 104 mmol/L (98-107); Estimated Creatinine Clearance 79 ml/min; Glucose 111 mg/dl (70-99); Potassium 4.7 mmol/L (3.5-5.1); Sodium 133 mmol/L (135-145); Total Protein 5.1 g/dl (6.3-8.2); eGFR > 60.00
[2025-04-09 04:48] LABS: Troponin I < 0.012 ng/ml
--- NOTE | 2025-04-09 07:36 | W.PN.CD ---
Today's Communication / Plan
-
Despite reports of chest pain troponins remain negative. Not clear that all his chest pain was angina. He feels significantly more comfortable this morning now that he has undergone paracentesis. Would wean nitro off and observe. Continue
treatment of ascites and abdominal/GI issues per primary team
Impression / Plan
-
.
Chest pain. Exact etiology unclear. Patient has a history of coronary artery disease and angina and periodically takes nitroglycerin. However his nitroglycerin use is infrequent. Patient initially seen on 04/08/2025 with diffuse abdominal pain
some of which may be radiating up into the chest. However it was unclear if he was having some component of angina that was precipitated by significant abdominal pain and physical stress. Despite reports of abdominal pain patient was
intermittently falling asleep and had negative troponins. He has continued to have negative troponins overnight. No chest pain currently and he appears markedly more comfortable now that he has had his thoracentesis.
- Wean nitro off and monitor.
-Continue to treat GI/abdominal issues
.
Abdominal pain.
- Patient has abdominal distention and apparently has ascites
- Await full report from CT which was performed this afternoon
- Additional management being directed by hospitalist
- Patient on antibiotics to cover SBP
- Depending on results of CT patient may also have additional paracentesis to provide further symptom relief and also for additional diagnostic purposes
.
Coronary artery disease
- History of SIFUENTES to LAD
- Obstructive disease distal to LAD graft previous unsuccessful attempt at PCI of LAD plan for continued medical therapy. Options limited by blood pressure
.
History of orthostatic hypotension
Cirrhosis
Anemia
Physical Exam
Vital Signs/Labs
Vital Signs
Temp Pulse Resp BP Pulse Ox
98 F 85 20 101/68 96
04/09/25 07:29 04/09/25 06:30 04/09/25 07:29 04/09/25 06:30 04/09/25 07:29
04/08/25 04/09/25 04/10/25
06:59 06:59 06:59
Actual Weight 80.91 kg 78 kg
04/09/25 03:32
04/09/25 03:32
PT 15.6 Sec (11.4-14.6) H 04/09/25 03:32
INR 1.21 04/09/25 03:32
APTT 35.6 Sec (23.4-35.0) H 04/09/25 03:32
LAB Results
04/08/25 04/08/25 04/09/25
16:38 20:51 03:32
Troponin I < 0.012 < 0.012 < 0.012
Physical Exam
Constitutional: No acute distress
Cardiovascular: Rhythm & rate is regular
Respiratory: Wheeze Absent and Crackles Absent
GI: Other (Distended but significantly softer yesterday and nontender post paracentesis)
Neuro/Psych: Alert
Data Reviewed
-
Date of Service: April 09, 2025
Medical Decision Making: Reviewed Test Results
Medical Tests (PFT, Pathology etc): Report Reviewed by me
Labs: Labs Reviewed by me
[2025-04-09] MEDS: DUONEB INH (07:51)
[2025-04-09] MEDS: MAG-TAB SR 84 MG PO (08:57)
[2025-04-09] MEDS: FLOMAX 0.4 MG PO (08:57)
[2025-04-09] MEDS: CYMBALTA DELAYED RELEASE 30 MG PO (08:57)
[2025-04-09] MEDS: PROTONIX 40 MG PO (08:57)
[2025-04-09] MEDS: CRESTOR 20 MG PO (08:57)
[2025-04-09] MEDS: ASPIR LOW (ENTERIC COATED) 81 MG PO (08:57)
--- NOTE | 2025-04-09 09:31 | CON.GI ---
Consultation
-
Date/Time Consultation Requested: 04/09/25
Date/Time Consultation Performed: 04/09/25
Requesting Provider: Dr Fernandes
Performing Provider: Dr Gates
Reason for Consultation: cirrhosis
Medical History
Chief Complaint / HPI
Chief Complaint: abd pain
History of Present Illness:
Mratin is a 69yo M with h/o MASH cirrhosis decompensated by recurrent ascites and CHF with h/o CAD s/p stents. He was sent in by his PMD for volume overload with recurrent ascites despite recent paracentesis, SOB and wt gain. He also reports R
sided abd pain. His bowel habits are erratic sometimes daily but at times nothing for over 10 days. He denies blood in stools. He also has reflux, heartburn and chest pains. There was nausea/vomiting yesterday. Denies fever or chills. He was
seen by Dr Holt transplant medical billing coder at [facility] on 03/16/25 and per pt declined for OLT given his 'heart disease.' He was also told he's not candidate for heart transplant due to this liver disease. His partner Yolis who he lives with is also
dealing with colon cancer. He would like to shift focus on comfort.
Past Medical History
Past Medical History: Other (MASH cirrhosis, COPD, CAD s/p stents Mild to moderate AR, HTN, depression/anxiety, GERD, urinary retention, colonic polyps, CABG )
Past Surgical History: Other (CABG CYY 01/2025 colonoscopy)
Social History
Tobacco: Former Smoker
Alcohol: Former
Drug: None
Personal: Partner
Living: Other (with life partner Yolis)
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
Family History
Family History: Reviewed & Not Pertinent
Allergies / Home Medications
Allergy/AdvReac Type Severity Reaction Status Date / Time
No Known Allergies Allergy Verified 04/06/25 14:46
�Medication �Instructions �Recorded
pantoprazole 40 mg tablet,delayed 40 mg PO BID Gastrointestinal Issue 12/01/23
release
potassium chloride 20 mEq 20 meq PO BID Electrolyte Repletion 09/01/24
tablet,extended release
magnesium oxide 400 mg PO DAILY Supplement 10/04/24
ipratropium 0.5 mg-albuterol 3 mg 3 ml inhalation R QID 12/13/24
(2.5 mg base)/3 mL nebulization Lung/Breathing Issues
soln
midodrine 5 mg tablet 10 mg PO TID Ascites 01/04/25
nitroglycerin 0.4 mg sublingual 0.4 mg sublingual [id number] PRN 01/04/25
tablet chest pain
aspirin 81 mg tablet,delayed 81 mg PO DAILY Blood Clot 01/05/25
release Prevention/Tx #30 tabs
duloxetine 30 mg capsule,delayed 30 mg PO DAILY Pain #0 caps 01/05/25
release
lactulose 10 gram/15 mL oral 20 g PO BID Liver Issues 02/06/25
solution
spironolactone 50 mg tablet 50 mg PO BID Fluid 02/06/25
Retention/Swelling
tamsulosin 0.4 mg capsule (Flomax) 0.4 mg PO DAILY #10 caps 02/14/25
Crestor 20 mg PO DAILY 04/07/25
Review of Systems
-
All other systems: A 12 pt ROS was Negative except as stated above in HPI
Vital Signs
Temp Pulse Resp BP Pulse Ox
98 F 87 20 88/64 96
04/09/25 07:29 04/09/25 08:57 04/09/25 07:29 04/09/25 08:57 04/09/25 07:29
Physical Exam
Exam
GEN: No acute distress, conversant, pleasant
HEENT: +icteric, extraocular movements intact, clear oropharynx without exudates
GI: soft, TTP RUQ mildly distended, , normal active bowel sounds, no hepatosplenomegaly
EXT: warm, well perfused, 2+ edema bilaterally
NEURO: AAOx3, non-focal
Results
WBC 5.8 10^3/uL (4.8-10.8) 04/09/25 03:32
Hgb 9.5 g/dL (13.0-18.0) L 04/09/25 03:32
Hct 28.4 % (39.0-52.0) L 04/09/25 03:32
MCV 96.9 fL (80.0-94.0) H 04/09/25 03:32
Plt Count 119 10^3/uL (130-400) L 04/09/25 03:32
Absolute Neuts (auto) 4.2 10^3/uL (1.4-6.5) 04/09/25 03:32
PT 15.6 Sec (11.4-14.6) H 04/09/25 03:32
INR 1.21 04/09/25 03:32
APTT 35.6 Sec (23.4-35.0) H 04/09/25 03:32
Sodium 133 mmol/L (135-145) L 04/09/25 03:32
Potassium 4.7 mmol/L (3.5-5.1) 04/09/25 03:32
Chloride 104 mmol/L (98-107) 04/09/25 03:32
Carbon Dioxide 23 mmol/L (22-30) 04/09/25 03:32
BUN 17 mg/dl (9-20) 04/09/25 03:32
Creatinine 0.9 mg/dL (0.7-1.3) 04/09/25 03:32
Calcium 8.6 mg/dl (8.4-10.2) 04/09/25 03:32
Total Bilirubin 1.6 mg/dl (0.2-1.3) H 04/09/25 03:32
AST 39 U/L (17-59) 04/09/25 03:32
ALT 34 U/L (0-50) 04/09/25 03:32
Alkaline Phosphatase 145 U/L (38-126) H 04/09/25 03:32
Lipase 225 U/L (23-300) 04/08/25 10:15
Hepatitis C Antibody Negative (Negative) 04/08/25 05:07
Diagnostic Image Results:
CTAP 1. SEVERE HEPATIC CIRRHOSIS.
2. MODERATE ASCITES.
3. Portal hypertension with gastroesophageal varices and mild splenomegaly.
4. Mild pancolitis (probably portal colopathy).
5. Superior mesenteric artery stent in place.
6. Severe calcific atherosclerotic plaque in the abdominal aorta and renal arteries.
7. Severe discogenic degenerative disease at L3/L4 and L5/S1.
8. Severe anasarca throughout the anterior abdominal wall and flanks.
9. Previous CABG surgery.
Assessment / Plan
-
Martin is a 69yo M with h/o CAD s/p CABG stent, CHF, MASH c/b recurrent large volume ascites who was admitted for volume overload and abd pain. Wt is up, recurrent ascites despite recent outpatient tap and SOB now on oxygen. He was deemed not
transplant candidate per Dr Holt at [facility] who he saw 03/16/25. I do not have these records.
Impression
- Abd pain and constipation
- Recurrent large volume ascites
- MASH cirrhosis
Not txp candidate per pt due to heart disease
MELD 3.0 = 14 today
- GERD
- Chest pains
- CHF
- CAD s/p CABG
- Valvular disease
Recommendation
- C/w lactulose BID
- Add additional dose lactulose and miralax today
- Monitor stool output
- He is interested in hospice and focus on comfort measures. This is reasonable given his advance heart and liver disease- not OLT candidate. Above d/w RN, hospitalist, equine pharmacology technician and Dr Ev Collins is PCP
- Pleurex for ascites via IR if desired by patient. He is aware of infection risk if placed but reasonable to do if goal is comfort and prevent readmission
- Pain managmeent
- C/w regular diet
- Increase PPI to BID
At this juncture GI will follow peripherally please call for ?
Data Reviewed
-
CT Scan: Report Reviewed by me
-
-
Thank you for consultation and allowing me to participate in the patient's care. Please call the quality control microbiologist GI physician during the after hours with any questions or concerns.
[2025-04-09] MEDS: DUPHALAC/CHRONULAC PO ×5 (10:13→19:56)
[2025-04-09] MEDS: DUPHALAC/CHRONULAC 20 GRAMS PO ×3 (10:14→18:14)
[2025-04-09] MEDS: MIRALAX 17 GRAMS PO (10:23)
[2025-04-09] MEDS: ZOFRAN 4 MG IV ×2 (10:55→20:29)
[2025-04-09 10:58] LABS: Troponin I 0.013 ng/ml
[2025-04-09] MEDS: DUONEB 3 ML INH ×3 (11:15→19:52)
--- NOTE | 2025-04-09 11:26 | PTCARENOTE ---
Patient awake and alert this morning. NSR 80's, BP 88/64-101/68, +2 bilateral pitting leg edema. Nitro gtt decreased to 2.5mcg/min (BP 88/64) denies chest pain. Abdomen distended, tender, ascites, hyperactive bowel sounds, passing lots of gas, not
stool, vomiting this morning bile like emeses into basin, Zofran given. Poor appetite has not eaten anything in 3 days, drinking gina magy. Using urinal dark yellow/orange urine. Was assisted to the commode after lactulose given, no BM, just urine
and assisted back to bed. Bed alarm audible, call morales in reach
--- NOTE | 2025-04-09 12:49 | W.PN.HOSP.TC ---
Today's Communication/Plan
-
Hospice consult
[facility] for perm peritoneal cath
Assessment / Plan
Assessment / Plan
69yo M with PANDEY-induced liver cirrosis, anxiety, recurrent ascites, Hx of cholecystectomy in January 2025 came with severe R abdomina pain for past week. He had therapeutic paracentesis done on 04/06/25 with 5150 chylous fluid removed and not meeting
criteria for SBP. In ED found fluid leak with significant abd distension concerning for reaccumulation of the fluid. Attempt for paracentesis in ED was unsuccessful. Due to chest pain attempted with nitro drip in IVU, but stopped as hypotension
worsened. Also chest pain resolved after paracentesis. Had 2L drained of transudate, not concerning for SBP. As per further conversation with GI - since patient is not candidate for liver or heart transplant - patient elected evaluation by hospice.
Permanent peritoneal cath advised
A/P:
#Severe R abdominal pain
#PANDEY with liver cirrhosis
started before recent paracentesis, doubt procedure complication
lactate and Lipase WNL
CT abd/pelvis with pancolitis, portal colopathy, gastroesophageal varicies, severe anasarca
pain mgmt
cont Ceftriaxone 2g q24h until ascitic Cx
Cell count of trasudate after paracentesis on 04/08/25 - not meeting criteria for SBP
Not candidate for liver transplant as per GI eval in [facility] due to cardiac disease. Cardiac mgmt limited too
With rapid reaccumulation of fluid - candidate for perm peritoneal cath - will contact [facility]
#GOC
focused on comfort care at this time
Hospice consult
#Constipation
increase Lactulose to TID
#Chest pain with Hx of CAD and PCI with obstructive disease distal to LAD graft previous unsuccessful attempt at PCI of LAD plan for continued medical therapy. Options limited by blood pressure
trop WNL
improved after paracentesis
Cariology evaluated -with hypotension nitro drip stopped
#Cirrhosis induced hypotension
#BPH
#Hx of hepatic encephalopathy
#Anxiety
cont home meds
#mild chronic anemia
#recurrent thrombocytopenia 2/2 liver cirrhosis
#Recurrent alk.phos elevation 2/2 cirrhosis s/p cholecystectomy
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
#chronic hyponatremia
2/2 liver cirrhosis
follow CMP
follow CBC
DVT ppx SCDs
Full code
I have spent at least 59min reviewing chart, test results, communication with consultants and providing direct patient care
Anticipated Discharge: Within 24 hours
Subjective/Interval History
-
Date of Service: April 09, 2025
Objective Data
-
Labs:
Laboratory Results
04/09/25
03:32
WBC 5.8
Hgb 9.5 L
Hct 28.4 L
Plt Count 119 L
PT 15.6 H
INR 1.21
APTT 35.6 H
Sodium 133 L
Potassium 4.7
Chloride 104
Carbon Dioxide 23
BUN 17
Creatinine 0.9
Glucose 111 H
Calcium 8.6
Total Bilirubin 1.6 H
AST 39
ALT 34
Alkaline Phosphatase 145 H
Vital Signs:
Vital Signs
Temp Pulse Resp BP Pulse Ox
97.8 F 90 20 107/60 93
04/09/25 11:30 04/09/25 11:30 04/09/25 11:30 04/09/25 11:30 04/09/25 11:30
I&O
04/08/25 04/09/25 04/10/25
06:59 06:59 06:59
Intake Total 726 / 726
Output Total 250 / 250 425 / 425 300 / 300
Balance -250 / -250 301 / 301 -300 / -300
Review of Systems
-
History Source: Patient
All other systems: Reviewed and negative
Cardiac: Reports Chest Pain
Abdomen/GI: Reports Abdominal Pain
Physical Exam
-
General: No Apparent Distress
HEENT: Normocephalic
Respiratory: Clear to Auscultation
Cardiac: Regular Rhythm
GI: Tender and Distended
Neuro: Awake, Alert, Oriented and AO x 3
Psych: Calm
--- NOTE | 2025-04-09 14:44 | PTCARENOTE ---
Nitro gtt discontinued. Patient chest pain free.
--- NOTE | 2025-04-09 14:47 | PTCARENOTE ---
Refused 3rd dose of lactulose
--- NOTE | 2025-04-09 18:26 | PTCARENOTE ---
Patient slept majority of the morning into the afternoon. Awake now, wanted to eat, nausea improved. Dinner ordered. Drinking gina magy. Agreeable to taking lactose, given, call morales in reach
[2025-04-09] MEDS: PROTONIX IV 40 MG IV (19:56)
[2025-04-09] MEDS: ROCEPHIN 2000 MG IV (19:57)
[2025-04-09] MEDS: NSS (PRESERVATIVE FREE) 10 ML IV (19:57)
[2025-04-09] MEDS: STERILE WATER FOR INJECTION 20 ML IV (19:57)
[2025-04-09] MEDS: FLUSH (NSS) 1 FLUSH IV (19:58)
[2025-04-09] MEDS: ULTRAM 50 MG PO (20:59)
--- NOTE | 2025-04-09 22:10 | PTCARENOTE ---
Received pt at change of shift sitting on side of bed eating dinner. SR on tele, HR in the 90's. pt w/ decreased appetite and ate 25% of meal. pt reports having nausea and requests PRN Zofran, administered per pt request--see NOV. pt refused both pm
doses of Lactulose. RN educated pt on importance of taking this medication. pt did have a small soft BM after dinner. pt reports having right sided abdominal pain at the paracentesis site. RN reached out to Cherelle Perea NP and PRN Tramadol ordered,
administered per pt request--see NOV. Fall precautions in place and pt encouraged to call community health nurse staff for assistance OOB. Bed alarm on and audible. Call morales within reach.
[2025-04-10 03:10] VITALS: BP 96/61
[2025-04-10 03:58] VITALS: BMI 25.4
[2025-04-10 03:59] LABS: Hematocrit 28.6 % (39.0-52.0); Hemoglobin 9.7 g/dL (13.0-18.0); Mean Corp Hgb Conc. 33.9 g/dL (33.0-37.0); Mean Corpuscular Volume 97.6 fL (80.0-94.0); Nucleated Red Blood Cells % 0 % (-); Platelet Count 117 10^3/uL (130-400); Red Cell Dist. Width 14.9 % (11.5-14.5)
[2025-04-10 04:21] LABS: ALT (SGPT) 32 U/L (0-50); AST (SGOT) 34 U/L (17-59); Albumin 2.6 g/dl (3.5-5.0); Alkaline Phosphatase 140 U/L (38-126); Blood Urea Nitrogen 16 mg/dl (9-20); Calcium 8.7 mg/dl (8.4-10.2); Carbon Dioxide 24 mmol/L (22-30); Chloride 105 mmol/L (98-107); Estimated Creatinine Clearance 71 ml/min; Glucose 97 mg/dl (70-99); Potassium 4.3 mmol/L (3.5-5.1); Sodium 132 mmol/L (135-145); Total Protein 5.2 g/dl (6.3-8.2); eGFR > 60.00
[2025-04-10 07:52] VITALS: BP 98/61
[2025-04-10] MEDS: ASPIR LOW (ENTERIC COATED) 81 MG PO (08:02)
[2025-04-10] MEDS: FLOMAX 0.4 MG PO (08:03)
[2025-04-10] MEDS: CYMBALTA DELAYED RELEASE 30 MG PO (08:03)
[2025-04-10] MEDS: CRESTOR 20 MG PO (08:03)
[2025-04-10] MEDS: MAG-TAB SR 84 MG PO (08:03)
[2025-04-10] MEDS: NSS (PRESERVATIVE FREE) 10 ML IV (08:04)
[2025-04-10] MEDS: PROTONIX IV 40 MG IV (08:04)
[2025-04-10] MEDS: FLUSH (NSS) 1 FLUSH IV (08:06)
[2025-04-10] MEDS: DUONEB 3 ML INH ×2 (08:28→11:24)
--- NOTE | 2025-04-10 10:51 | W.PN.HOSP.TC ---
Today's Communication/Plan
-
dc
Assessment / Plan
Assessment / Plan
69yo M with PANDEY-induced liver cirrosis, anxiety, recurrent ascites, Hx of cholecystectomy in January 2025 came with severe R abdominal pain for past week. He had therapeutic paracentesis done on 04/06/25 with 5150 chylous fluid removed and not meeting
criteria for SBP. In ED found fluid leak with significant abd distension concerning for reaccumulation of the fluid. Attempt for paracentesis in ED was unsuccessful. Due to chest pain attempted with nitro drip in IVU, but stopped as hypotension
worsened. Also chest pain resolved after paracentesis. Had 2L drained of transudate, not concerning for SBP. As per further conversation with GI - since patient is not candidate for liver or heart transplant - patient initially elected evaluation by
hospice, however later - changed his mind, so Permanent peritoneal cath not indicated and patient to continue with intermittent paracenthesis - [facility] has orders already. Abd painn much improved, Cx NTD, GI thinks that pain was 2/2 constipation.
Therefore medically stable for d/c without Abx.
A/P:
#Severe R abdominal pain
#PANDEY with liver cirrhosis
started before recent paracentesis, doubt procedure complication
lactate and Lipase WNL
CT abd/pelvis with pancolitis, portal colopathy, gastroesophageal varicies, severe anasarca
pain mgmt
cont Ceftriaxone 2g q24h until ascitic Cx
Cell count of transudate after paracentesis on 04/08/25 - not meeting criteria for SBP
Not candidate for liver transplant as per GI eval in [facility] due to cardiac disease. Cardiac mgmt limited too
#GOC
focused on comfort care at this time
Hospice consult
#Constipation
increase Lactulose to TID
#Chest pain with Hx of CAD and PCI with obstructive disease distal to LAD graft previous unsuccessful attempt at PCI of LAD plan for continued medical therapy. Options limited by blood pressure
trop WNL
improved after paracentesis
Cariology evaluated -with hypotension nitro drip stopped
#Cirrhosis induced hypotension
#BPH
#Hx of hepatic encephalopathy
#Anxiety
cont home meds
#mild chronic anemia
#recurrent thrombocytopenia 2/2 liver cirrhosis
#Recurrent alk.phos elevation 2/2 cirrhosis s/p cholecystectomy
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
#chronic hyponatremia
2/2 liver cirrhosis
follow CMP
follow CBC
DVT ppx SCDs
Full code
I have spent at least 39min reviewing chart, test results, communication with consultants and providing direct patient care
Anticipated Discharge: Today
Subjective/Interval History
-
Date of Service: April 10, 2025
Objective Data
-
Labs:
Laboratory Results
04/10/25
03:09
WBC 5.9
Hgb 9.7 L
Hct 28.6 L
Plt Count 117 L
Sodium 132 L
Potassium 4.3
Chloride 105
Carbon Dioxide 24
BUN 16
Creatinine 1.0
Glucose 97
Calcium 8.7
Total Bilirubin 0.9
AST 34
ALT 32
Alkaline Phosphatase 140 H
Vital Signs:
Vital Signs
Temp Pulse Resp BP Pulse Ox
98.6 F 84 16 98/61 94
04/10/25 07:50 04/10/25 08:29 04/10/25 08:29 04/10/25 07:52 04/10/25 03:10
I&O
04/09/25 04/10/25 04/11/25
06:59 06:59 06:59
Intake Total 726 / 726 600 / 600
Output Total 425 / 425 475 / 475
Balance 301 / 301 125 / 125
Review of Systems
-
History Source: Patient
All other systems: Reviewed and negative
Constitutional: Reports No Symptoms
Physical Exam
-
General: No Apparent Distress
HEENT: Normocephalic
Respiratory: Clear to Auscultation
GI: Soft, Nontender and Nondistended
Musculoskeletal: No Clubbing, No Cyanosis and No Edema
Neuro: Awake, Alert, Oriented and AO x 3
Psych: Calm
--- NOTE | 2025-04-10 10:57 | W.DCSUMMARY ---
Addendum entered and electronically signed by Trevin Fernandes MD 04/10/25 12:46:
As per detailed disccussion with PCP and card - patient recently with CHF in [place], discharged on Bumex mg BID and developed DENICE. Card recommended to start Bumex 2mg BID and follow up with BMP in 1 week and this was agreed with PCP. Outpatient
f/u with CBC card to be established as concern for cardiogenic liver cirrhosis to play major role. Patient medically stable for d/c to follow with PCP upon discharge
Original Note:
Discharge Summary
Discharge Data
Date of Admission: 04/07/25
Date of Discharge: 04/10/25
-
Pending Results: No
Hospital Course
69yo M with PANDEY-induced liver cirrosis, anxiety, recurrent ascites, Hx of cholecystectomy in January 2025 came with severe R abdominal pain for past week. He had therapeutic paracentesis done on 04/06/25 with 5150 chylous fluid removed and not meeting
criteria for SBP. In ED found fluid leak with significant abd distension concerning for reaccumulation of the fluid. Attempt for paracentesis in ED was unsuccessful. Due to chest pain attempted with nitro drip in IVU, but stopped as hypotension
worsened. Also chest pain resolved after paracentesis. Had 2L drained of transudate, not concerning for SBP. As per further conversation with GI - since patient is not candidate for liver or heart transplant - patient initially elected evaluation by
hospice, however later - changed his mind, so Permanent peritoneal cath not indicated and patient to continue with intermittent paracentesis - [facility] has orders already. Abd pain much improved, Cx NTD, GI thinks that pain was 2/2 constipation.
Therefore medically stable for d/c without Abx. Lactulose advised to be increased to be taken to target 5-6 BM per day as per GI. Chest pain resolved too. Previously was deemed not a candidate for intervention as per established dental nurse.
I have spent at least 39min reviewing chart, test results, communication with consultants and providing direct patient care
Patient was managed for:
#Severe R abdominal pain
#PANDEY with liver cirrhosis
#GOC
#Constipation
#Chest pain with Hx of CAD and PCI with obstructive disease distal to LAD graft previous unsuccessful attempt at PCI of LAD plan for continued medical therapy.
#Cirrhosis induced hypotension
#BPH
#Hx of hepatic encephalopathy
#Anxiety
#mild chronic anemia
#recurrent thrombocytopenia 2/2 liver cirrhosis
#Recurrent alk.phos elevation 2/2 cirrhosis s/p cholecystectomy
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
#chronic hyponatremia
Discharge Plan
-
Patient Disposition: Home (Routine Discharge)
Discharge Diagnosis/Procedures: constipation
Diet: Low Sodium
Driving Restrictions: As prior to admission
Activity Restrictions/Additional Instructions:
continue with intermittent paracentesis as previously scheduled
Referrals:
Ev Collins MD [Family Provider, Internal Medicine]
Prescriptions:
New
lactulose 10 gram/15 mL Solution
20 g PO Q4HPRN PRN (Reason: target 5-6 BM'S PER DAY) Qty: 60 0RF
Continued
pantoprazole 40 mg tablet,delayed release (DR/EC)
40 mg PO BID
potassium chloride 20 mEq Tablet Extended Release
20 meq PO BID
magnesium oxide 400 mg magnesium Tablet
400 mg PO DAILY
ipratropium-albuterol 0.5 mg-3 mg(2.5 mg base)/3 mL solution for nebulization
3 ml inhalation R QID
midodrine 5 mg tablet
10 mg PO TID
nitroglycerin 0.4 mg tablet, sublingual
0.4 mg sublingual [id number] PRN (Reason: chest pain)
aspirin 81 MG tablet,delayed release (DR/EC)
81 mg PO DAILY Qty: 30 0RF
duloxetine 30 mg Capsule,Delayed Release(Dr/Ec)
30 mg PO DAILY Qty: 0 0RF
spironolactone 50 mg Tablet
50 mg PO BID
Rx Instructions:
Was on hold past 3 days due to voiding once a day per PCP
tamsulosin [Flomax] 0.4 mg capsule
0.4 mg PO DAILY Qty: 10 0RF
Rx Instructions:
Was on hold past 3 days due to voiding once a day per PCP
Crestor
20 mg PO DAILY
Discontinued
lactulose 10 gram/15 mL solution
20 g PO BID
Discharge Orders:
Discharge Patient (As Directed); Ordered 04/10/25
Ordered By: Trevin Fernandes
Care Plan Goals
Care Plan Goals:
Problem: Readiness for enhanced knowledge related to diagnosis and treatment plan
Goal: Understand your diagnosis and treatment plan needs, including medications if applicable.
Instructions: Know your diagnosis, underlying causes and treatment plan options, including medications if applicable. Consult with your health care team to learn about your diagnosis and treatment plan, including medications if applicable.
Discharge Date and Time
Print Language: FRENCH
--- NOTE | 2025-04-10 11:48 | CM ---
Reviewed chart. Mr. Mejia was transferred to IVU. Met with Mr. Mejia to review discharge plans. He states prior to admission he resides with his significant other in a two story home with one step to enter. He states prior to admission he
has a full flight of steps to get to bedroom/full bathroom. He states he has a powder room on the first floor. He states prior to admission he ambulates in the community with a single point cane. He states in the home he sometimes ambulates
without any assistive device. He states he is current with [facility]. He states he gets RN and therapies at home. He is agreeable to continuing with [facility]. Reviewed Hospice with him. He states he has decline Hospice at
this time. He states he has a prescription pkan and uses [facility]. Medical work-up in progress. The discharge plan is to return home with his significant other and resumption of [facility] when medically stable.
[2025-04-10 12:06] VITALS: BP 89/60
[2025-04-10 12:09] VITALS: BP 87/67
[2025-04-10] MEDS: PREVNAR 20 0.5 ML IM (12:19)
[2025-04-10 14:06] VITALS: BP 96/73
[2025-04-10] MEDS: DUONEB INH (14:39)
--- NOTE | 2025-04-10 15:41 | PTCARENOTE ---
Pt received this am with no c/o of any pain or sob. OOB to the chair with 1 assist. Pt discharged to home. Pt drove himself to the hospital and stated he was driving himself home. Discharge instructions given and reviewed with good understanding and
all questions answered.
== END 2025-04-10 16:05 | disposition home or self-care (01) | DRG 442 ==
LOC: IVU 20:59
PROVIDERS: Clinical Nurse Specialist Family Health; Emergency Medicine; ADMITTING PHYSICIAN Internal Medicine; ATTENDING PHYSICIAN Internal Medicine; CONSULT PHYSICIAN Internal Medicine Cardiovascular Disease; CONSULT PHYSICIAN Internal Medicine Gastroenterology; CONSULT PHYSICIAN Radiology Diagnostic Radiology; EMERGENCY PHYSICIAN Emergency Medicine; FAMILY PHYSICIAN Hospitalist
PROC: 0W9G3ZZ Drainage of Peritoneal Cavity, Percutaneous Approach (ICD-10-PCS; 2025-04-08)
PROC: 3E0234Z Introduction of Serum, Toxoid and Vaccine into Muscle, Percutaneous Approach (ICD-10-PCS; 2025-04-10)
DX: K75.81 Nonalcoholic steatohepatitis (NASH) (principal); E87.1 Hypo-osmolality and hyponatremia; I25.112 Atherosclerotic heart disease of native coronary artery with refractory angina pectoris; R18.8 Other ascites; L03.311 Cellulitis of abdominal wall; I85.10 Secondary esophageal varices without bleeding; K76.6 Portal hypertension; Z51.5 Encounter for palliative care; K74.60 Unspecified cirrhosis of liver; N40.1 Benign prostatic hyperplasia with lower urinary tract symptoms; R33.8 Other retention of urine; D69.59 Other secondary thrombocytopenia; I11.0 Hypertensive heart disease with heart failure; I50.9 Heart failure, unspecified; I95.1 Orthostatic hypotension; F32.A Depression, unspecified; F41.9 Anxiety disorder, unspecified; D64.9 Anemia, unspecified; I86.4 Gastric varices; R16.1 Splenomegaly, not elsewhere classified; K21.9 Gastro-esophageal reflux disease without esophagitis; J44.9 Chronic obstructive pulmonary disease, unspecified; E78.00 Pure hypercholesterolemia, unspecified; K59.00 Constipation, unspecified; I25.2 Old myocardial infarction; Z87.891 Personal history of nicotine dependence; Z95.1 Presence of aortocoronary bypass graft; Z82.49 Family history of ischemic heart disease and other diseases of the circulatory system; Z79.82 Long term (current) use of aspirin; Z90.49 Acquired absence of other specified parts of digestive tract; Z23 Encounter for immunization; Z95.5 Presence of coronary angioplasty implant and graft; Z86.0100 Personal history of colon polyps, unspecified
CPT/HCPCS: 49083; 74177; 80053; 82042; 82150; 83605; 83615; 83690; 84157; 84484; 85025; 85610; 85730; 86803; 87015; 87070; 87205; 88112; 88305; 89051; 90677; 93005; 94640; 96374; 96375; 99284; G0009; Q9967

== ENCOUNTER → 2025-05-05 08:24 | Outpatient (REF) | payer MEDICARE, SELFPAY ==
[2025-05-05 08:36] VITALS: BP 135/78; BP_SYST 88
[2025-05-05 09:18] VITALS: BP 109/66
[2025-05-05 10:44] LABS: Body Fluid Second Tech EF
== END ==
LOC: RADI 08:24
PROVIDERS: ATTENDING PHYSICIAN Hospitalist
DX: R18.8 Other ascites (principal)
CPT/HCPCS: 49083; 89051

== ENCOUNTER → 2025-05-24 06:41 | Outpatient (REF) | payer MEDICARE, SELFPAY ==
[2025-05-24 07:25] VITALS: BP 124/81; BP_SYST 80
[2025-05-24 08:03] VITALS: BP 119/76; BP_SYST 77
[2025-05-24 08:28] VITALS: BP 119/76
[2025-05-24 09:52] LABS: Body Fluid Second Tech RP
== END ==
LOC: RADI 06:41
PROVIDERS: ATTENDING PHYSICIAN Hospitalist
DX: R18.8 Other ascites (principal)
CPT/HCPCS: 49083; 89051

== ENCOUNTER 2025-05-24 08:36 | Outpatient (RCR) | payer MEDICARE, SELFPAY ==
[2025-05-24] MEDS: FLEXBUMIN 100 IV (08:55)
[2025-05-24 08:56] VITALS: BP 122/80
[2025-05-24 09:50] VITALS: BP 106/66
== END 2025-06-20 23:59 | disposition home or self-care (01) ==
LOC: OID 08:36
PROVIDERS: ATTENDING PHYSICIAN Hospitalist
DX: K74.60 Unspecified cirrhosis of liver (principal); R10.11 Right upper quadrant pain
CPT/HCPCS: 96365; 96366; P9047

== ENCOUNTER 2025-05-29 09:51 | Emergency (ER) | payer MEDICARE, SELFPAY ==
[2025-05-29] VITALS (29 sets, daily range): BP systolic 86–145; BP diastolic 57–85; BMI 27.8
--- NOTE | 2025-05-29 10:02 | EDRN ---
Dr. Cunningham in to see pt.
[2025-05-29] MEDS: DILAUDID 1 MG IV (10:24)
--- NOTE | 2025-05-29 10:36 | ED.GENMED ---
History of Present Illness
<Serge Cunningham, DO - Last Filed: 05/30/25 12:33>
General
Chief Complaint: Abdominal Pain
Source: patient
Exam Limitations: none
Time Seen by Provider: 05/29/25 09:58
History of Present Illness
History of Present Illness:
See MDM
Past History
<Serge Cunningham, DO - Last Filed: 05/30/25 12:33>
Past History
ED Past Medical History: CAD, COPD (Ex-smoker), HTN, Hypercholesterolemia and Other (Ascites, cirrhosis)
ED Past Surgical History: Cardiac (According to PCP notes, patient had LHC 10/2022, attempted wiring of the LAD (75% mid LAD and 90% apical LAD stenosis), aborted secondary to severe tortuosity and bleeding of the SIFUENTES graft, on medical therapy.,
Echo o 11/2023 with LV EF of 65 to 70% mild to moderate aortic regurg. ), Orthopedic and Other (Hernia repair. Refractory angina on Renexa)
Social History
Tobacco: Former smoker
Alcohol: Former (Has not drank for 4 months)
Drug: None
Personal: Single
Living: other (With former partner)
Employment: Retired
Phy Exam
<Serge Cunningham, DO - Last Filed: 05/30/25 12:33>
Physical Exam
Physical Exam:
See MDM
Course
<Serge Cunningham, DO - Last Filed: 05/30/25 12:33>
Orders/Labs/Results
Orders:
Orders
05/29/25
Electrocardiogram (*1) Stat
Comment: DONE
05/29/25 10:02
HYDROmorphone [Dilaudid] 1 mg IV NOW STA
05/29/25 10:27
Complete Blood Count/With Diff Urgent
Lactic Acid Q4H
Comment: CANCEL 2nd LACTIC ACID IF 1st LACTIC ACID IS LESS THAN 2
PTT Urgent
Prothrombin Time Urgent
Blood Culture Q30M
HANNY Source: Blood/Venous
Specimen Description:
05/29/25 10:39
CT Abd/pelvis W Iv Cont Urgent
Comment:
Reason For Exam: R abd pain
05/29/25 10:50
Consult Interventional Radiology [[facility] CONSULT] Urgent
Consulting Provider: Reilly Salas
Was physician already notified: Yes
Procedure being ordered, including laterality if applicable: paracentesis
Acknowledgement that appropriate orders are entered: Yes
05/29/25 11:05
Blood Culture Q30M
HANNY Source: Blood/Venous
Specimen Description:
05/29/25 11:06
Ondansetron Injectable [Zofran] 4 mg .ROUTE .[facility]
05/29/25 11:07
Ondansetron Injectable [Zofran] 4 mg IV NOW STA
05/29/25 11:11
Comprehensive Metabolic Panel Urgent
05/29/25 13:00
Nitroglycerin Sublingual [Nitrostat (Sublingual)] 0.4 mg SL NOW STA
05/29/25 13:12
Troponin I Urgent
05/29/25 13:37
Cell Count (Body Fluid) [Body Fluid Cell Count] Urgent
What is the Body Fluid: peritoneal
Date Specimen was Collected: 05/29/25
Time Specimen was Collected: 13:34
Fluid Culture with Gram Stain Urgent
HANNY Source: Peritoneal Fluid
Specimen Description:
Date Specimen was Collected: 05/29/25
Time Specimen was Collected: 13:34
Abnormal Lab Results
05/29/25 05/29/25
10:27 11:11
RBC 3.24 L 10^6/uL
(4.70-6.10)
Hgb 10.7 L g/dL
(13.0-18.0)
Hct 31.8 L %
(39.0-52.0)
MCV 98.1 H fL
(80.0-94.0)
MCH 33.0 H pg
(27.0-31.0)
RDW 14.7 H %
(11.5-14.5)
Absolute Lymphs (auto) 1.1 L 10^3/uL
(1.2-3.4)
Absolute Monos (auto) 0.9 H 10^3/uL
(0.1-0.6)
Lymphocytes % 16.1 L %
(20.5-51.1)
Monocytes % 13.4 H %
(1.7-9.3)
Sodium 132 L mmol/L
(135-145)
BUN 25 H mg/dl
(9-20)
Glucose 111 H mg/dl
(70-99)
Total Bilirubin 1.4 H mg/dl
(0.2-1.3)
Alkaline Phosphatase 195 H U/L
(38-126)
Total Protein 6.1 L g/dl
(6.3-8.2)
Albumin 3.0 L g/dl
(3.5-5.0)
05/29/25 10:27
05/29/25 11:11
Vital Signs
Initial and Last Documented VS:
Initial Vital Signs
Temp Pulse Resp BP Pulse Ox
97.9 F 76 16 130/75 99
05/29/25 09:54 05/29/25 09:54 05/29/25 09:54 05/29/25 09:54 05/29/25 09:54
Last Documented Vital Signs
Temp Pulse Resp BP Pulse Ox
97.5 F 83 17 107/62 97
05/29/25 13:20 05/29/25 17:45 05/29/25 17:45 05/29/25 17:45 05/29/25 17:45
<Etienne Garcia, - Last Filed: 05/29/25 17:26>
Orders/Labs/Results
Orders:
Orders
05/29/25
Electrocardiogram (*1) Stat
Comment: DONE
05/29/25 10:02
HYDROmorphone [Dilaudid] 1 mg IV NOW STA
05/29/25 10:27
Complete Blood Count/With Diff Urgent
Lactic Acid Q4H
Comment: CANCEL 2nd LACTIC ACID IF 1st LACTIC ACID IS LESS THAN 2
PTT Urgent
Prothrombin Time Urgent
Blood Culture Q30M
HANNY Source: Blood/Venous
Specimen Description:
05/29/25 10:39
CT Abd/pelvis W Iv Cont Urgent
Comment:
Reason For Exam: R abd pain
05/29/25 10:50
Consult Interventional Radiology [[facility] CONSULT] Urgent
Consulting Provider: Reilly Salas
Was physician already notified: Yes
Procedure being ordered, including laterality if applicable: paracentesis
Acknowledgement that appropriate orders are entered: Yes
05/29/25 11:05
Blood Culture Q30M
HANNY Source: Blood/Venous
Specimen Description:
05/29/25 11:06
Ondansetron Injectable [Zofran] 4 mg .ROUTE .[facility]
05/29/25 11:07
Ondansetron Injectable [Zofran] 4 mg IV NOW STA
05/29/25 11:11
Comprehensive Metabolic Panel Urgent
05/29/25 13:00
Nitroglycerin Sublingual [Nitrostat (Sublingual)] 0.4 mg SL NOW STA
05/29/25 13:12
Troponin I Urgent
05/29/25 13:37
Cell Count (Body Fluid) [Body Fluid Cell Count] Urgent
What is the Body Fluid: peritoneal
Date Specimen was Collected: 05/29/25
Time Specimen was Collected: 13:34
Fluid Culture with Gram Stain Urgent
HANNY Source: Peritoneal Fluid
Specimen Description:
Date Specimen was Collected: 05/29/25
Time Specimen was Collected: 13:34
Abnormal Lab Results
05/29/25 05/29/25
10:27 11:11
RBC 3.24 L 10^6/uL
(4.70-6.10)
Hgb 10.7 L g/dL
(13.0-18.0)
Hct 31.8 L %
(39.0-52.0)
MCV 98.1 H fL
(80.0-94.0)
MCH 33.0 H pg
(27.0-31.0)
RDW 14.7 H %
(11.5-14.5)
Absolute Lymphs (auto) 1.1 L 10^3/uL
(1.2-3.4)
Absolute Monos (auto) 0.9 H 10^3/uL
(0.1-0.6)
Lymphocytes % 16.1 L %
(20.5-51.1)
Monocytes % 13.4 H %
(1.7-9.3)
Sodium 132 L mmol/L
(135-145)
BUN 25 H mg/dl
(9-20)
Glucose 111 H mg/dl
(70-99)
Total Bilirubin 1.4 H mg/dl
(0.2-1.3)
Alkaline Phosphatase 195 H U/L
(38-126)
Total Protein 6.1 L g/dl
(6.3-8.2)
Albumin 3.0 L g/dl
(3.5-5.0)
05/29/25 10:27
05/29/25 11:11
Vital Signs
Initial and Last Documented VS:
Initial Vital Signs
Temp Pulse Resp BP Pulse Ox
97.9 F 76 16 130/75 99
05/29/25 09:54 05/29/25 09:54 05/29/25 09:54 05/29/25 09:54 05/29/25 09:54
Last Documented Vital Signs
Temp Pulse Resp BP Pulse Ox
97.5 F 83 17 107/62 97
05/29/25 13:20 05/29/25 17:45 05/29/25 17:45 05/29/25 17:45 05/29/25 17:45
<Serge Cunningham, DO - Last Filed: 05/30/25 12:33>
MDM/Problems Addressed
Differential Diagnosis Includes:
Note:
CHIEF COMPLAINT(S)
Abdominal pain and abdominal distension.
HISTORY OF PRESENT ILLNESS
The patient is a 69-year-old male with a history of non-alcoholic steatohepatitis (PANDEY) who presents with complaints of worsening abdominal pain and distension. A recent paracentesis was performed a few days ago. Despite this intervention, the
patient reports a worsening of symptoms, prompting a visit to the primary care physician, who then referred him to the emergency department to rule out spontaneous bacterial peritonitis. The patient denies experiencing any fevers but describes the
pain as significantly worse than his chronic right upper quadrant abdominal pain, stating, 'this feels worse.'
PAST MEDICAL AND SURGICAL HISTORY
History of non-alcoholic steatohepatitis (PANDEY).
PHYSICAL EXAM
General: Mildly uncomfortable
Skin: Warm, dry.
Head: Normocephalic, atraumatic
Neck: Appears supple, trachea midline.
Eyes, Ears, Nose, Mouth, and Throat: Oral mucosa moist.
Cardiovascular: No signs of cyanosis
Respiratory: Respirations are non-labored.
Abdomen: Distended abdomen with generalized tenderness
Musculoskeletal: No deformities
Neurological: No focal neurological deficit observed.
Psychiatric: Cooperative, appropriate mood and affect.
PLAN
I will discuss the case with interventional radiologists and initiate a procedure to obtain ascitic fluid via paracentesis to assess for signs of infection.
DIFFERENTIAL DIAGNOSIS
The Differential Diagnosis includes, in no particular order and is not limited to:
1. Spontaneous bacterial peritonitis
2. Hepatic encephalopathy
3. Worsening cirrhosis
4. Hepatocellular carcinoma
5. Portal hypertension
6. Biliary tract disease
7. Pancreatitis
8. Gastrointestinal bleeding
9. Abdominal hernia
10. Intestinal obstruction
SUMMARY OF ENCOUNTER
The patient, a 69-year-old male with a history of non-alcoholic steatohepatitis (PANDEY), presented to the emergency department with worsening abdominal pain and distension, following a recent paracentesis. The primary care physician referred him to
rule out spontaneous bacterial peritonitis. A CT scan revealed expected ascites with no evidence of any acute pathology. Paracentesis was performed, and fluid analysis showed no evidence of spontaneous bacterial peritonitis. The patient was assessed
to be stable.
DISPOSITION
Discharge
ASSESSMENT
The patients worsening abdominal symptoms appear to be related to underlying ascites due to his history of PANDEY. There is no evidence of spontaneous bacterial peritonitis based on fluid analysis.
INDEPENDENT REVIEW OF LABS AND INTERPRETATION OF TESTS
- My independent review of the CT scan shows no acute pathology and expected ascites.
- My independent review of the paracentesis fluid analysis shows no evidence of spontaneous bacterial peritonitis.
MEDICAL DECISION MAKING
-Complexity of Data Reviewed: Chronic conditions affecting care include non-alcoholic steatohepatitis (PANDEY). Differential diagnosis considered includes spontaneous bacterial peritonitis, hepatic encephalopathy, worsening cirrhosis, hepatocellular
carcinoma, portal hypertension, biliary tract disease, pancreatitis, gastrointestinal bleeding, abdominal hernia, and intestinal obstruction.
-Data:
Category 1
- My independent interpretation of the CT scan and paracentesis fluid analysis.
-Risk:
Consideration of Admission/Observation: Escalation of care including admission/observation was considered given the complexity and risk of the patients presenting complaint, exam findings, and their underlying comorbidities. However, ultimately I
feel the patient is safe for outpatient management with close follow-up. Reasoning: Work-up is reassuring, does not reveal any acute life/organ-threatening processes, the patients symptoms were well-controlled upon reevaluation, reexamination was
reassuring, vitals are stable, and the patient is agreeable with discharge and reliable for follow-up.
DIAGNOSIS
- Ascites, ICD-10-CM: R18.8
- Non-alcoholic steatohepatitis (PANDEY), ICD-10-CM: K75.81
<Serge Cunningham, DO - Last Filed: 05/30/25 12:33>
*Pulse Oximetry
SaO2: 99
Oxygen Mode of Delivery: Room air
Patient hypoxic: no
*Critical Care Note
Total Time (30-74mins, 75-104mins- exclusive of procedures): Not Applicable
<Etienne Garcia, DO - Last Filed: 05/29/25 17:26>
Update Note
Update Note:
Ascitic fluid reviewed and results reviewed with gastroenterology. Okay for discharge. No evidence of SBP. Serum white count normal. Afebrile
ED Attending Note
<Serge Cunningham, DO - Last Filed: 05/30/25 12:33>
-
Portions of this chart may have been created with voice recognition software.� Occasional wrong word or��sound alike� substitutions may have occurred due to the inherent limitations of voice recognition software.
Discharge Plan
Departure
Patient Disposition: Home (Routine Discharge)
Date of Disposition: 05/29/25
Time of Disposition: 17:25
Patient with high blood pressure during this ER visit?: No
Discharge Problem:
Ascites
Instructions: Abdominal Pain
Prescriptions:
No Action
pantoprazole 40 mg tablet,delayed release (DR/EC)
40 mg PO BID
potassium chloride 20 mEq Tablet Extended Release
20 meq PO BID
magnesium oxide 400 mg magnesium Tablet
400 mg PO DAILY
ipratropium-albuterol 0.5 mg-3 mg(2.5 mg base)/3 mL solution for nebulization
3 ml inhalation R QID
midodrine 5 mg tablet
10 mg PO TID
nitroglycerin 0.4 mg tablet, sublingual
0.4 mg sublingual [id number] PRN (Reason: chest pain)
aspirin 81 MG tablet,delayed release (DR/EC)
81 mg PO DAILY Qty: 30 0RF
duloxetine 30 mg Capsule,Delayed Release(Dr/Ec)
30 mg PO DAILY Qty: 0 0RF
spironolactone 50 mg Tablet
50 mg PO BID
Rx Instructions:
Was on hold past 3 days due to voiding once a day per PCP
tamsulosin [Flomax] 0.4 mg capsule
0.4 mg PO DAILY Qty: 10 0RF
Rx Instructions:
Was on hold past 3 days due to voiding once a day per PCP
rosuvastatin [Crestor] 20 mg Tablet
20 mg PO DAILY Qty: 0
lactulose 10 gram/15 mL Solution
20 g PO Q4HPRN PRN (Reason: target 5-6 BM'S PER DAY) Qty: 60 0RF
bumetanide 2 mg tablet
2 mg PO BID Qty: 60 0RF
Referrals:
UNKNOWN - PT NOT,INTERVIEWE [Family Provider]
Activity Restrictions/Additional Instructions:
Please follow-up with your pharmacist intern. Return immediately for fevers, abdominal pain, vomiting or any other concerns.
Interventions
Interventions:
*Risk Screen - Suicide Last Done: 05/29/25 10:34
*General Assessment Last Done: 05/29/25 10:34
*Neglect/Abuse Screening Last Done: 05/29/25 10:34
*ED- Fall Risk Assessment Last Done: 05/29/25 10:34
*ED COVID-19 Vaccine History Last Done: 05/29/25 10:34
*Nursing Disposition Last Done: 05/29/25 18:10
OF-Plpzmu-Pqczmnerlc Assessment Last Done: 05/29/25 10:34
Discharge Date and Time
Discharge Date/Time: 05/29/25 18:10
Print Language: LATVIAN
[2025-05-29 10:48] LABS: Hematocrit 31.8 % (39.0-52.0); Hemoglobin 10.7 g/dL (13.0-18.0); Mean Corp Hgb Conc. 33.6 g/dL (33.0-37.0); Mean Corpuscular Volume 98.1 fL (80.0-94.0); Nucleated Red Blood Cells % 0 % (-); Platelet Count 172 10^3/uL (130-400); Red Cell Dist. Width 14.7 % (11.5-14.5)
[2025-05-29 10:56] LABS: INR 1.10; PT 14.5 Sec (11.4-14.6)
[2025-05-29 10:57] LABS: APTT 34.5 Sec (23.4-35.0)
[2025-05-29] MEDS: ZOFRAN 4 MG IV (11:08)
[2025-05-29 11:45] LABS: ALT (SGPT) 31 U/L (0-50); AST (SGOT) 48 U/L (17-59); Albumin 3.0 g/dl (3.5-5.0); Alkaline Phosphatase 195 U/L (38-126); Blood Urea Nitrogen 25 mg/dl (9-20); Calcium 8.6 mg/dl (8.4-10.2); Carbon Dioxide 25 mmol/L (22-30); Chloride 104 mmol/L (98-107); Estimated Creatinine Clearance 54 ml/min; Glucose 111 mg/dl (70-99); Potassium 4.4 mmol/L (3.5-5.1); Sodium 132 mmol/L (135-145); Total Protein 6.1 g/dl (6.3-8.2); eGFR 59.84
--- NOTE | 2025-05-29 12:52 | EDRN ---
[facility] just called for pt at this time.
[2025-05-29] MEDS: NITROSTAT (SUBLINGUAL) 0.4 MG SL (13:00)
--- NOTE | 2025-05-29 13:00 | EDRN ---
Troponin was drawn and sent.
--- NOTE | 2025-05-29 13:02 | EDRN ---
At 12:55 pt c/o chest pain , heavy, 10/10 just after IR called for pt. Pt stated that he has been getting this pain intermittently r/t pressure of abdomen on his chest and it is relieved by tatking NTG
--- NOTE | 2025-05-29 13:15 | EDRN ---
Pt taken to [facility] w/verbal report given on pt to [facility] RN who will care for pt on arrival. Dr. Cunningham said for pt to go to [facility] if EKG was okay. EKG show SR w/ PACs only. Pt was having chest heavyness and @ 10/10 which was o/10 upon leaving for IR.
SBP decreased to 87 post NTG and was 118 on leaving ED for [facility].
[2025-05-29 13:54] LABS: Troponin I < 0.012 ng/ml
--- NOTE | 2025-05-29 14:12 | EDRN ---
Addendum entered by Estela Garrett RN 05/29/25 14:12:
[facility] drained 2250 during paracentesis of milky yellow fluid, accessed in RUQ. Area closed w/ glue as last site started leaking 24 hours post last paracentesis.
Original Note:
Report received from [facility] at this time. Pt pain free and VSS.
[2025-05-29 14:38] LABS: Body Fluid Second Tech BGK
--- NOTE | 2025-05-29 15:10 | EDRN ---
Dr. Garcia asked about ice and he said okay and pt received ice chips at this time.
--- NOTE | 2025-05-29 15:42 | EDRN ---
Dr. Garcia aware pt needs to be dispositioned post paracentesis as to discharge home versus admit.
--- NOTE | 2025-05-29 15:43 | EDRN ---
Pt given some more ice chips at this time.
--- NOTE | 2025-05-29 16:24 | EDRN ---
Pt has no disposition as of yet and has called this RN into room for info on this x3 so this RN TT'd Dr. Garcia about a diposition at this time.
== END 2025-05-29 18:10 | disposition home or self-care (01) ==
LOC: EMR 09:51
PROVIDERS: CONSULT PHYSICIAN Radiology Vascular & Interventional Radiology; EMERGENCY PHYSICIAN Student in an Organized Health Care Education/Training Program
DX: R18.8 Other ascites (principal); K75.81 Nonalcoholic steatohepatitis (NASH); I25.10 Atherosclerotic heart disease of native coronary artery without angina pectoris; I10 Essential (primary) hypertension; E78.00 Pure hypercholesterolemia, unspecified; I35.1 Nonrheumatic aortic (valve) insufficiency; J44.9 Chronic obstructive pulmonary disease, unspecified; K74.60 Unspecified cirrhosis of liver; Z87.891 Personal history of nicotine dependence
CPT/HCPCS: 99284; 96374; 96375; 49083; 74177; 80053; 83605; 84484; 85025; 85610; 85730; 87015; 87040; 87070; 87205; 89051; 93005; Q9967

== ENCOUNTER → 2025-07-28 07:25 | Outpatient (REF) | payer MEDICARE, SELFPAY ==
[2025-07-28 07:40] VITALS: BP 119/65; BP_SYST 75
[2025-07-28 08:05] VITALS: BP 107/60
[2025-07-28 10:33] LABS: Body Fluid Second Tech EM
== END ==
LOC: RADI 07:25
PROVIDERS: ATTENDING PHYSICIAN Hospitalist
DX: R18.8 Other ascites (principal)
CPT/HCPCS: 49083; 89051

== ENCOUNTER → 2025-08-11 10:46 | Outpatient (REF) | payer MEDICARE, SELFPAY | LOC: HWRAD 10:46 | PROVIDERS: ATTENDING PHYSICIAN Hospitalist | DX: Z87.891 Personal history of nicotine dependence (principal) | CPT/HCPCS: 71271 ==

== ENCOUNTER → 2025-08-30 14:00 | Outpatient (REF) | payer MEDICARE, SELFPAY | LOC: RAD 14:00 | PROVIDERS: ATTENDING PHYSICIAN Hospitalist | DX: J98.8 Other specified respiratory disorders (principal) | CPT/HCPCS: 71046 ==

== ENCOUNTER → 2025-09-04 11:12 | Outpatient (REF) | payer MEDICARE, SELFPAY ==
[2025-09-04 12:40] LABS: ALT (SGPT) 22 U/L (0-50); AST (SGOT) 38 U/L (17-59); Albumin 3.3 g/dl (3.5-5.0); Alkaline Phosphatase 209 U/L (38-126); Blood Urea Nitrogen 27 mg/dl (9-20); Calcium 9.1 mg/dl (8.4-10.2); Carbon Dioxide 31 mmol/L (22-30); Chloride 90 mmol/L (98-107); Glucose 226 mg/dl (70-99); Potassium 4.5 mmol/L (3.5-5.1); Sodium 130 mmol/L (135-145); Total Protein 7.1 g/dl (6.3-8.2); eGFR 31.83
== END ==
LOC: REG 11:12
PROVIDERS: ATTENDING PHYSICIAN Hospitalist
DX: N17.9 Acute kidney failure, unspecified (principal)
CPT/HCPCS: 36415; 80053

== ENCOUNTER → 2025-09-08 07:38 | Outpatient (REF) | payer MEDICARE, SELFPAY ==
[2025-09-08 10:58] LABS: INR 1.25; PT 15.8 Sec (11.4-14.6)
[2025-09-08 11:08] LABS: APTT 35.0 Sec (23.4-35.0)
[2025-09-08 11:31] LABS: ALT (SGPT) 20 U/L (0-50); AST (SGOT) 40 U/L (17-59); Albumin 3.3 g/dl (3.5-5.0); Alkaline Phosphatase 191 U/L (38-126); Blood Urea Nitrogen 32 mg/dl (9-20); Calcium 8.6 mg/dl (8.4-10.2); Carbon Dioxide 24 mmol/L (22-30); Chloride 97 mmol/L (98-107); Glucose 199 mg/dl (70-99); Potassium 3.7 mmol/L (3.5-5.1); Sodium 131 mmol/L (135-145); Total Protein 7.0 g/dl (6.3-8.2); eGFR 35.68
== END ==
LOC: PAVMRI 07:38
PROVIDERS: ATTENDING PHYSICIAN Internal Medicine Gastroenterology; FAMILY PHYSICIAN Hospitalist; PRIMARYCARE PHYSICIAN Internal Medicine
DX: R79.89 Other specified abnormal findings of blood chemistry (principal); K72.90 Hepatic failure, unspecified without coma
CPT/HCPCS: 36415; 74183; 80053; 85610; 85730; A9581